=== PATIENT | female | born 2000 | race Caucasian/White ===

== ENCOUNTER 2020-04-30 15:08 | Emergency (ER) | payer OTHER, SELFPAY ==
--- NOTE | ~2020-04-30 | XR_ITS ---
EXAMINATION: XR abdomen/kub 1V DATE: 04/30/2020 15:38 INDICATION: 2 weeks of constipation TECHNIQUE: A supine view of the abdomen was obtained. COMPARISON: 08/01/2015 FINDINGS: Small amount of gas and stool at the ascending colon and rectum. The descending colon appears decompr essed. No dilated gas-filled loops of bowel to suggest obstruction. 8 degree lumbar levocurvature. IMPRESSION: 1. Normal bowel gas pattern. Reviewed, dictated and finalized at location A.
[2020-04-30 15:17] VITALS: BP 124/88; PULSE 72; RESP 16; TEMP 36.8; O2SAT 99
--- NOTE | 2020-04-30 15:18 | ED.GENADULT ---
HPI - General Adult General Chief complaint: Abdominal Pain Stated complaint: CONSTIPATION Time Seen by Provider: 04/30/20 15:20 Source: patient Mode of arrival: ambulatory Limitations: no limitations History of Present Illness HPI narrative: 19-year-old female patient presents to the [facility] with complaints of abdominal pain and constipation for the past 2 weeks. Patient states it is gotten increasingly worse over the past week with increasing abdominal pain. Patient states that she has had issues before with constipation back when she was in seventh grade. Patient states the last time she had any kind of bowel production was today but states it was very little and hard. Patient states she has been trying to take MiraLAX 1-2 times daily as well as some stool softeners which has not produced anything. Patient states she continues to get crampy feels like her belly is distended and bloated. Patient also come planing of feeling nauseated. Patient states that she did vomit one time on April 13 but has not had any vomiting since then. Denies any fevers or body aches. Denies . Related Data Home Medications Medication Instructions Recorded Confirmed sertraline 25 mg PO DAILY 04/30/20 04/30/20 Allergies Allergy/AdvReac Type Severity Reaction Status Date / Time Sulfa (Sulfonamide Allergy Mild HIVES Verified 09/09/19 15:54 Antibiotics) clindamycin Allergy Unknown HIVES Verified 09/09/19 15:54 Review of Systems Review of Systems: Narrative: CONSTITUTIONAL: Denies fever, chills, or sweats. EYES: Denies visual changes, redness, or discharge. ENT: Denies rhinorrhea, congestion, sore throat, or otalgia. CARDIOVASCULAR: Denies chest pain, palpitations, or edema. RESPIRATORY: Denies cough or dyspnea. GASTROINTESTINAL: Positive abdominal pain, nausea, denies vomiting, or diarrhea. Positive constipation GENITOURINARY: Denies dysuria or hematuria. SKIN: Denies rash or itching. MUSCULOSKELETAL: Denies back pain, joint pain, or myalgia. NEUROLOGIC: Denies headache, numbness, or weakness. PSYCHIATRIC: Denies anxiety or depression. PMFSH Comments At the time of my signature I agree with nursing past medical history, surgical, social, and family history. There is no relevant family history pertinent to the presenting complaint. Exam Narrative: Exam Narrative: GENERAL: Well-appearing, well-nourished, and in no acute distress. HEAD: Normocephalic, atraumatic. EYES: PERRLA and EOMI. ENT: Nares clear, no rhinorrhea or epistaxis. Mucous membranes moist. NECK: Supple. No lymphadenopathy CHEST: Clear to auscultation. No respiratory distress. HEART: Regular rate and rhythm. No murmur heard. Normal peripheral pulses. ABDOMEN: Soft, slightly distended. No guarding, rebound tenderness, or rigid. Patient does have tenderness noted to the left upper quadrant on palpation. No pulsatilla masses. Bowel sounds slightly decreased in left upper quadrant. No organomegaly. Negative Reveles?s sign. No periumbicial tenderness. No Supra public tenderness or distension. Good femoral pulses bilaterally. No hernia noted. No scars or surface trauma. EXTREMITIES: Normal range of motion. No edema. SKIN: Warm, dry, no rash. NEURO: No focal deficits. Alert and oriented x3. Course INSTRUCTIONAL SUPERVISOR/PA Physician Supervision Reevaluated patient after her x-ray had resulted. Discussed with patient that the KUB still shows a small amount of stool but nothing to suggest that she is constipated. Discussed with her the since this does not necessarily coincide with her abdominal pain and her symptoms, I am going to suggest that that we send her to the ER for further evaluation and treatment since there is not a clear indication of what could be causing her pain and she may need to have blood work and possibly a CT done. Patient is aware the plan of care and is agreement this time. Patient requesting an answer for further evaluation. Reevaluation(s) Date: 04/30/20 Time: 16:17
== END 2020-04-30 16:20 | disposition short-term general hospital (02) ==
PROVIDERS: Emergency Provider Nurse Practitioner Family; PCP Nurse Practitioner Adult Health
DX: R10.12 Left upper quadrant pain (principal); F84.5 Asperger's syndrome; F41.9 Anxiety disorder, unspecified; F32.9 Major depressive disorder, single episode, unspecified; R03.0 Elevated blood-pressure reading, without diagnosis of hypertension
CPT/HCPCS: 74018; 99213; G0463

== ENCOUNTER 2020-04-30 16:46 | Emergency (ER) | payer OTHER, SELFPAY ==
--- NOTE | ~2020-04-30 | CT_ITS ---
EXAMINATION: CT abdomen pelvis w con DATE: 04/30/2020 18:09 INDICATION: Generalized abdominal pain. TECHNIQUE: Computed tomography (CT) of the abdomen and pelvis was performed with 100 mL Omnipaque-350 intravenous contrast. Automated exposure control and iterative reconstruction technique were employe d. The dose-length product was 507.60 mGy-cm. COMPARISON: CT abdomen dated 07/04/2010 FINDINGS: Lung bases are clear. Heart size is normal. No pericardial or pleural effusion. Focal hepatic steatos is at the ligamentum teres. Gallbladder, spleen, pancreas, bilateral adrenal glands and kidneys are n ormal. Bowels including the appendix are normal. There is a small amount of gas within a small uracha l remnant which superiorly tethers the anterior dome of the partially decompressed bladder. Retrovert ed uterus and bilateral adnexa are unremarkable. Trace amount of likely physiologic free fluid in the cul-de-sac. No abscess or free intraperitoneal gas. No pathologically enlarged tiny fat-containing u mbilical hernia. lymphadenopathy. Mild lumbar levocurvature. IMPRESSION: 1. Small amount of gas within a urachal remnant at the anterior bladder. Correlate for recent instrum entation or Rhodes catheterization and with urinalysis. Reviewed, dictated and finalized at location A. IMPRESSION: 1. Small amount of gas within a urachal remnant at the anterior bladder. Correl ate for recent instrumentation or Rhodes catheterization and with urinalysis.
[2020-04-30 16:51] VITALS: BP 138/76; PULSE 72; RESP 18; TEMP 36.2; O2SAT 100
[2020-04-30 17:34] LABS: Basophils Percent Auto 0.5 % (0.2-1.2); Eosinophils Percent Auto 0.4 % (0-4.4); Hematocrit 43.3 % (37.0-47.0); Immature Granulocyte Absolute 0.02 K/mm3 (0.00-0.031); Immature Granulocyte Percent A 0.3 % (0-0.5); Immature Platelet Fraction Pct 11.2 % (0.9-11.2); Lymphocytes Percent Auto 23.9 % (18.3-44.2); Mean Corpuscular HGB Conc 32.3 g/dl (32-36); Mean Corpuscular Hemoglobin 27.9 pg (26-34); Mean Corpuscular Volume 86.3 fl (80-100); Mean Platelet Volume 13.3 fl (7.4-10.4); Monocytes Absolute Auto 0.5 K/mm3 (0.1-0.6); Monocytes Percent Auto 6.4 % (2.6-8.5); Neutrophils Absolute Auto 5.5 K/mm3 (1.3-6.7); Neutrophils Percent Auto 68.5 % (45.5-73.1); Platelet Count Result 187 k/mm3 (150-375); Red Blood Count 5.02 M/mm3 (4.2-5.4); Red Cell Distribution Width 13.1 % (11.5-14.5)
[2020-04-30 17:37] LABS: Add Urine Microscopic? YES; Appearance Urine Clear (Clear); Bilirubin Urine Negative (Negative); Blood Urine Negative (Negative); Color Urine Yellow (Yellow); Glucose Urine UA Negative (Negative); Ketones Urine 2+ mg/dL (Negative); Leukocyte Esterase Ur Negative LEU/UL (Negative); Mucus Urine Rare /lpf; Nitrate Urine Negative (Negative); Protein Urine Negative (Negative); Specific Grav Ur 1.024 (1.001-1.035); Squamous Epithelial Cell Urine Many /hpf (Few); Urobilinogen Urine Negative mg/dL (<2.0)
[2020-04-30 17:39] LABS: Alanine Aminotransferase 25 U/L (4-35); Albumin Level 4.8 g/dL (3.7-5.6); Alkaline Phosphatase 86 U/L (45-116); Aspartate Amino Transferase 22 U/L (14-36); Bilirubin,Total 0.4 mg/dL (0.2-1.3); Blood Urea Nitrogen 16 mg/dL (8-21); Calcium 9.7 mg/dL (8.9-10.7); Carbon Dioxide 25 mmol/L (22-30); Chloride 102 mmol/L (98-107); Estimated CRCL calculation 111 ml/min; Estimated Glomerular Filt Rate > 60; Glucose 92 mg/dL (65-105); Lipase 817 U/L (23-300); Potassium 3.6 mmol/L (3.4-5.0); Sodium 138 mmol/L (134-143)
--- NOTE | 2020-04-30 17:54 | ED.ABDPAIN ---
HPI - Abdominal Pain General Chief Complaint: Abdominal Pain Stated Complaint: Constipation Time Seen by Provider: 04/30/20 17:38 Source: patient Mode of arrival: ambulatory History of Present Illness HPI narrative: 19 years old white female, obese, insignificant past medical history presents with possible constipation. Also some anal discomfort. Patient does not remember when the last time she had a bowel movement before this morning. Patient complaining of generalized abdominal pain associated with frequent vomiting started earlier today. Also some in discomfort when she tried to strain and to have a bowel movement. No fever, no chills no diarrhea, no urinary symptoms no vaginal bleeding or discharge. Patient was seen at urgent care today and KUB showed no constipation, referred to the emergency room for further evaluation Related Data Home Medications Medication Instructions Recorded Confirmed buspirone 5 mg PO TID 04/30/20 levonorgestrel-ethinyl estrad tablet 04/30/20 [Vienva] sertraline 25 mg PO DAILY 04/30/20 04/30/20 Allergies Allergy/AdvReac Type Severity Reaction Status Date / Time Sulfa (Sulfonamide Allergy Mild HIVES Verified 04/30/20 16:53 Antibiotics) clindamycin Allergy Unknown HIVES Verified 04/30/20 16:53 Review of Systems Review of Systems: Narrative: CONSTITUTIONAL: Denies fever, chills, or sweats. EYES: Denies visual changes, redness, or discharge. ENT: Denies rhinorrhea, congestion, sore throat, or otalgia. CARDIOVASCULAR: Denies chest pain, palpitations, or edema. RESPIRATORY: Denies cough or dyspnea. GASTROINTESTINAL: Denies abdominal pain, nausea, vomiting, or diarrhea. GENITOURINARY: Denies dysuria or hematuria. SKIN: Denies rash or itching. MUSCULOSKELETAL: Denies back pain, joint pain, or myalgia. NEUROLOGIC: Denies headache, numbness, or weakness. PSYCHIATRIC: Denies anxiety or depression. PMFSH Social History Social History Gender identity (if verbalized by the patient): Female Exam Narrative: Exam Narrative: General appearance: Well-developed, well-nourished Skin: Normal color Head: Normocephalic, nontraumatic Eyes: Clear conjunctiva ENT: Oropharynx normal, ears normal, nose normal Neck: Supple, nontender Chest and respiratory: Airway patent, no respiratory distress, no accessory muscle use Heart: Regular rate/rhythm Abdomen: Soft, diffuse abdominal tenderness mainly epigastric and right lower quadrant. No guarding or rebound, no organomegaly, quiet bowel sounds, rectal exam showed diffuse tenderness, possible anal fissure. Vascular: Normal peripheral pulses, normal capillary refill. Musculoskeletal: Normal range of motion, nontender back Neurologic: Alert and oriented ?3, FAN ENGINE ENGINEER is normal as tested, no gross motor deficit Course Course Emergency Course: Improving Vital Signs Vital signs: Vital Signs Temperature 36.2 C L 04/30/20 16:51 Pulse Rate 72 04/30/20 16:51 Respiratory Rate 18 04/30/20 16:51 Blood Pressure 138/76 04/30/20 16:51 Pulse Oximetry 100 04/30/20 16:51 Temperature 36.2 C L 04/30/20 16:51 Pulse Rate 72 04/30/20 16:51 Respiratory Rate 18 04/30/20 16:51 Blood Pressure 138/76 04/30/20 16:51 Pulse Oximetry 100 04/30/20 16:51 MDM - Abdominal Pain MDM Narrative Medical decision making narrative: Abdominal pain. My plan to get labs, CT abdomen and pelvis with IV contrast, start IV fluids. My differential diagnosis as below Differential Diagnosis Differential diagnosis: Likely abdominal pain, acute appendicitis, constipation and pancreatitis Lab Data Result diagrams: 04/30/20 17:20
[2020-04-30] MEDS: SODIUM CHLORIDE 0.9% IV 1,000 ML 999 ML IV CONT (18:42)
[2020-04-30 20:12] VITALS: BP 130/80; PULSE 80; RESP 20; TEMP 36.7; O2SAT 98
== END 2020-04-30 20:14 | disposition home or self-care (01) ==
PROVIDERS: Physician Assistant; Emergency Provider Emergency Medicine; PCP Nurse Practitioner Adult Health
DX: R10.84 Generalized abdominal pain (principal); K62.89 Other specified diseases of anus and rectum
CPT/HCPCS: 36415; 74018; 74177; 80053; 81001; 81025; 83690; 85025; 85055; 96360; 99284; J7030; Q9967

== ENCOUNTER 2020-10-13 07:05 | Outpatient (NON) | payer OTHER, SELFPAY ==
[2020-10-13 18:30] LABS: SARS-CoV-2 RNA PCR Negative
== END 2020-10-13 07:06 ==
PROVIDERS: PCP Nurse Practitioner Adult Health; Visit Provider Nurse Practitioner Adult Health
DX: R05 Cough (principal); Z20.828 Contact with and (suspected) exposure to other viral communicable diseases
CPT/HCPCS: 87635; C9803; U0003

== ENCOUNTER 2021-04-12 13:33 | Emergency (ER) | payer OTHER, SELFPAY ==
[2021-04-12 13:45] VITALS: BP 115/68; PULSE 77; RESP 16; TEMP 36.3; O2SAT 99
--- NOTE | 2021-04-12 14:07 | ED.PEDHENT ---
HPI - Pediatric HENT General Chief complaint: Upper Respiratory Infection Stated complaint: sore throat Source: patient and RN notes reviewed Limitations: no limitations History of Present Illness HPI Narrative: The patient, previously mostly healthy non-smoker/nondrinker, presents with sore throat. Patient is partially Covid vaccinated and has a shorter couple day history of sore throat. She reports other coworkers have been strep positive. No fever, loss of taste/smell, vomiting/diarrhea, S OB, cough, CP, earache, rash, myalgias/headaches. Related Data Home Medications Medication Instructions Recorded Confirmed levonorgestrel-ethinyl estrad 0.1 tablet PO DAILY 04/30/20 04/12/21 [Vienva] Allergies Allergy/AdvReac Type Severity Reaction Status Date / Time clindamycin Allergy Mild HIVES Verified 04/12/21 13:39 Sulfa (Sulfonamide Allergy Mild HIVES Verified 04/12/21 13:39 Antibiotics) Pediatric Review of Systems Review of Systems: General/Constitutional: No weight loss,fever Eyes: N0: Redness,discharge Ears/Nose/Throat: No: Epistaxis,ear discharge Respiratory: Denies: Hemoptysis Gastrointestinal: No Vomiting, Bleeding-rectal Skin: No Lumps, eruption Neurologic: No Focal Weakness,Sz Hematologic: Denies: Petechiae/Purpura Psychiatric: No: Suicida ideationl All Other Systems: Reviewed and Negative PMFSH Social History Social History Gender identity (if verbalized by the patient): Female Comments At time of signature, agree with nursing past medical, surgical, social and family history. There is no relevant family history pertinent to the presenting complaint Pediatric Exam Narrative: Physical exam: General Appearance: Well appearing, Well nourished EYE: PERRLA, Conjunctiva clear Ears: Auditory canal normal, TM normal Nose: Rhinorrhea, Mucousal erythema Mouth/Throat: MM moist, Uvula midline, Pharyngeal erythema without exudate Neck: Supple, No adenopathy Respiratory: No respiratory distress, Breath sounds equal, Clear to auscultation Cardiovascular: RRR, No JVD Musculoskeletal: Non tender, Normal strength Skin: Warm, Dry Neurological: A&O x3, CN II-XII intact Psychiatric: Normal mood, Normal affect Course Vital Signs Vital signs: Vital Signs Temperature 97.4 F L 04/12/21 13:45 Pulse Rate 77 04/12/21 13:45 Respiratory Rate 16 04/12/21 13:45 Blood Pressure 115/68 04/12/21 13:45 Pulse Oximetry 99 04/12/21 13:45 Temperature 97.4 F L 04/12/21 13:45 Pulse Rate 77 04/12/21 13:45 Respiratory Rate 16 04/12/21 13:45 Blood Pressure 115/68 04/12/21 13:45 Pulse Oximetry 99 04/12/21 13:45 Medical Decision Making Vital Signs Vital Signs: Vital Signs Temperature 97.4 F L 04/12/21 13:45 Pulse Rate 77 04/12/21 13:45 Respiratory Rate 16 04/12/21 13:45 Blood Pressure 115/68 04/12/21 13:45 Pulse Oximetry 99 04/12/21 13:45 Temperature 97.4 F L 04/12/21 13:45 Pulse Rate 77 04/12/21 13:45 Respiratory Rate 16 04/12/21 13:45 Blood Pressure 115/68 04/12/21 13:45 Pulse Oximetry 99 04/12/21 13:45 Lab Data Labs: Lab Results 04/12/21 Range/Units 13:48 SARS-CoV-2 RNA (RT-PCR) Pending Strep Screen Presumptive Negative *(Reference Range: Negative)* Discharge Plan Discharge Clinical Impression: Odynophagia Pharyngitis Qualifiers: Pharyngitis/tonsillitis etiology: unspecified etiology Qualified Code(s): J02.9 - Acute pharyngitis, unspecified Patient Disposition: Home, Self-Care Condition: Stable Instructions: Antibiotic Form, Pharyngitis (ED) Prescriptions: New azithromycin 250 mg tablet See Rx Instructions .ROUTE .COMPLEX Qty: 6 RF: 0 lidocaine HCl [Lidocaine Viscous] 2 % solution 5 ml MUCOUS MEM QID PRN (Reason: pain) Qty: 100 RF: 0 No Action levonorgestrel-ethin
[2021-04-13 18:42] LABS: SARS-CoV-2 RNA PCR Negative
== END 2021-04-12 14:23 | disposition home or self-care (01) ==
PROVIDERS: Emergency Provider Emergency Medicine; PCP Nurse Practitioner Adult Health
DX: J02.9 Acute pharyngitis, unspecified (principal); Z20.822 Contact with and (suspected) exposure to COVID-19
CPT/HCPCS: 87081; 87880; 99213; C9803; G0463; U0003; U0005

== ENCOUNTER 2021-08-02 12:43 | Outpatient (CLI) | payer OTHER, SELFPAY ==
--- NOTE | ~2021-08-02 | XR_ITS ---
EXAMINATION: NASAL BONES-3+VIEWS DATE: 08/02/2021 13:07 INDICATION: Injury to the nose with swelling and bruising. TECHNIQUE: Obrja and left and right lateral views of the nasal bones were obtained. COMPARISON: None. FINDINGS: Mild inferior angulation of a small nondisplaced fracture across the anterior tip of the nasal bone. No other fractures identified. Nasal septum remains midline. No mucosal air-fluid levels appreciated within the paranasal sinuses. IMPRESSION: 1. Mild angulation of a nondisplaced fracture at the tip of the nasal bones. Reviewed, dictated and finalized at location A.
== END 2021-08-02 12:44 | disposition home or self-care (01) ==
LOC: ANHIMG 12:49
PROVIDERS: PCP Nurse Practitioner Adult Health; Visit Provider Nurse Practitioner Adult Health
DX: S09.92XA Unspecified injury of nose, initial encounter (principal); X58.XXXA Exposure to other specified factors, initial encounter
CPT/HCPCS: 70160

== ENCOUNTER 2021-08-07 17:21 | Emergency (ER) | payer OTHER, SELFPAY ==
--- NOTE | ~2021-08-07 | XR_ITS ---
EXAMINATION: XR foot RT min 3V DATE: 08/07/2021 17:47 INDICATION: Sudden onset right foot pain TECHNIQUE: Dorsoplantar, lateral, and 2 oblique views of the right foot were obtained. COMPARISON: 03/15/2015 FINDINGS: There is no fracture, dislocation, or subluxation. The bones, soft tissues, and joint space s are normal. IMPRESSION: 1. No acute osseous abnormality. Reviewed, dictated and finalized at location A.
--- NOTE | 2021-08-07 17:31 | ED.LOWEXIN ---
HPI - Extremity Injury (Lower) General Chief Complaint: Extremity Problem,Nontraumatic Stated Complaint: Rt Foot Pain Time Seen by Provider: 08/07/21 17:33 Source: patient and RN notes reviewed Mode of arrival: ambulatory Limitations: no limitations History of Present Illness HPI Narrative: 20-year-old female presents to the [facility] with complaints of dorsal right foot pain. Denies trauma. No redness, swelling. Patient very tender to the dorsal aspects on top of the talus. Related Data Home Medications Medication Instructions Recorded Confirmed drospirenone (contraceptive) 1 tablet PO DAILY 08/07/21 08/07/21 [Slynd] Allergies Allergy/AdvReac Type Severity Reaction Status Date / Time clindamycin Allergy Mild HIVES Verified 08/07/21 17:40 Sulfa (Sulfonamide Allergy Mild HIVES Verified 08/07/21 17:40 Antibiotics) Review of Systems Review of Systems: All systems reviewed & are unremarkable except as noted in HPI and below Constitutional: Constitutional: Reports no additional constitutional complaints, Denies chills and Denies fever(s) Eyes: Eyes: Reports no additional eye complaints ENT: Reports system reviewed and no additional complaints, except as documented Cardiovascular: Cardiovascular: Reports no additional cardiovascular complaints Respiratory: Respiratory: Reports no additional respiratory complaints Musculoskeletal: Musculoskeletal: Reports as per HPI Comments: Right dorsal aspect foot Integumentary/Breasts: Skin/Breast: Reports system reviewed and no additional complaints, except as docu, Denies breast mass, Denies pruritus, Denies rash and Denies skin ulcer Neurologic: Reports system reviewed and no additional complaints, except as documented Psychiatric: Psychiatric: Reports no additional psychiatric complaints Allergic/Immunologic: Allergic/Immunologic: Reports no additional allergic/immunologic complaints [facility] Past Medical History Medical History (Updated 08/07/21 @ 19:55 by Charlene Allred) No significant family history Surgical History Surgical History (Updated 08/07/21 @ 19:55 by Charlene Allred) No pertinent past surgical history Social History Social History (Updated 08/07/21 @ 19:55 by Charlene Allred) Occupation/Education: student Gender identity (if verbalized by the patient): Female Comments At the time of my signature, I reviewed and agree with the nursing past medical, surgical, social, and family history. There is no relevant family history pertinent to the patient complaint. Exam Const: General: healthy appearing, no acute distress and alert Nutritional Appearance: well nourished Orientation/consciousness: patient oriented x3 Limitations: no limitations HENMT: Head: normal to inspection Eyes: Conjunctivae: conjunctivae normal Pupils: Equal, round and reactive pupils present Neck: Neck: normal visual inspection, no lymphadenopathy and no meningeal signs Chest: Chest palpation & inspection: normal inspection of the chest Resp: Effort & Inspection: normal respiratory effort Auscultation: clear to auscultation bilaterally Cardio: Rate: regular rate Rhythm: regular rhythm Back/Spine/Pelvis: Back: no CVA tenderness Skin: General skin exam: normal color Rashes: no rashes Wounds: no wounds Neuro: General: patient oriented x3, moves all extremities, no meningeal signs and no focal motor deficits Speech: normal speech Gait exam (Neuro): Normal gait present Extrem: General: normal to inspection, full ROM, capillary refill normal and normal exam except as noted Ankle/foot/toe images: 1. Tenderness without redness, bruising, swelling. Full range of motion. Sensation intact lateral and dorsal aspects, all 5 toes. Capillary refill under 2 seconds Psych: Appearance: grossly normal and well kempt Mental Status: mental status grossly normal Affect: normal affect Attitude: cooperative Thought content: Yes Normal thought content present
[2021-08-07 17:35] VITALS: BP 110/77; PULSE 72; RESP 16; TEMP 36.6; O2SAT 100
== END 2021-08-07 18:00 | disposition home or self-care (01) ==
PROVIDERS: Emergency Provider Nurse Practitioner; PCP Nurse Practitioner Adult Health
DX: M79.671 Pain in right foot (principal)
CPT/HCPCS: 73630; 99213; G0463

== ENCOUNTER 2021-08-30 16:17 | Emergency (ER) | payer OTHER, SELFPAY ==
--- NOTE | 2021-08-30 16:21 | ED.URI ---
HPI - URI/Sore Throat General Chief Complaint: Upper Respiratory Infection Stated Complaint: SORE THROAT/EARACHE Time Seen by Provider: 08/30/21 16:21 Source: patient and RN notes reviewed History of Present Illness HPI Narrative: Patient is a 20-year-old female who presents the urgent care with complaints of nasal congestion, rhinorrhea, bilateral ear pain, sore throat and mild abdominal discomfort. Patient denies of any fever, chills, nausea, vomiting. Patient states she has not taken anything [id number] for her symptoms. Denies of any known exposure to strep or Covid. Patient has had the Covid vaccine. No other acute complaints. No acute distress noted. Patient aware of the plan of care. Some parts of this dictation were generated by voice recognition software and may contain typographical and/or grammatical inaccuracies. Related Data Home Medications Medication Instructions Recorded Confirmed drospirenone (contraceptive) 1 tablet PO DAILY 08/07/21 08/07/21 [Slynd] Allergies Allergy/AdvReac Type Severity Reaction Status Date / Time clindamycin Allergy Mild HIVES Verified 08/07/21 17:40 Sulfa (Sulfonamide Allergy Mild HIVES Verified 08/07/21 17:40 Antibiotics) Review of Systems Review of Systems: CONSTITUTIONAL: Denies fever, chills, or sweats. EYES: Denies visual changes, redness, or discharge. ENT: Reports of nasal congestion, rhinorrhea, bilateral otalgia and sore throat CARDIOVASCULAR: Denies chest pain, palpitations, or edema. RESPIRATORY: Denies cough or dyspnea. GASTROINTESTINAL: Reports of diffuse abdominal discomfort without nausea, vomiting or diarrhea GENITOURINARY: Denies dysuria or hematuria. SKIN: Denies rash or itching. MUSCULOSKELETAL: Denies back pain, joint pain, or myalgia. NEUROLOGIC: Denies headache, numbness, or weakness. All other systems reviewed are negative, except as documented in HPI. [facility] Past Medical History Medical History (Updated 08/30/21 @ 16:44 by MIKE Dior) No significant family history Surgical History Surgical History (Updated 08/07/21 @ 19:55 by Charlene Allred) No pertinent past surgical history Social History Social History (Updated 08/07/21 @ 19:55 by Charlene Allred) Gender identity (if verbalized by the patient): Female Comments At the time of my signature, I reviewed and agree with the nursing past medical, surgical, social, and family history. There is no relevant family history pertinent to the patient complaint. Exam Narrative: GENERAL: This is a well-nourished, well-developed patient, in no apparent distress. HEAD: normocephalic, atraumatic. EYES: PERRL. Sclera clear/white. Vision is grossly intact. EARS: External ears normal, auditory canals clear and without drainage, TMs normal without perforation. Hearing grossly intact. NOSE: External nose normal with no obvious nasal discharge, nares without redness, clear rhinorrhea. THROAT: Mucous membranes moist, mild to moderate erythema noted posterior oropharynx without exudate or ulceration. Mild postnasal drainage. NECK: Neck supple CARDIOVASCULAR: Regular rate and rhythm without murmurs, gallops, or rubs. RESPIRATORY: Clear to auscultation. Breath sounds equal bilaterally. No wheezes, rales, or rhonchi. GASTROINTESTINAL: Abdomen soft, non-tender, nondistended. Bowel sounds are active. No guarding. SKIN: warm, intact with no suspicious lesions or rash, good texture and turgor. NEURO: awake, alert, and oriented to person, place and time. There were no obvious focal neurologic abnormalities. EXTREMITIES: No clubbing, cyanosis, or edema. Course Vital Signs Vital signs: Vital Signs Temperature 98.1 F 08/30/21 16:25 Pulse Rate 79 08/30/21 16:25 Respiratory Rate 16 08/30/21 16:25 Blood Pressure 106/58 L 08/30/21 16:25 Pulse Oximetry 100 08/30/21 16:25 Temperature 98.1 F 08/30/21 16:25 Pulse Rate 79 08/30/21 16:25 Respiratory Rate 16 08/30/21
[2021-08-30 16:25] VITALS: BP 106/58; PULSE 79; RESP 16; TEMP 36.7; O2SAT 100
== END 2021-08-30 16:49 | disposition home or self-care (01) ==
PROVIDERS: Emergency Provider Nurse Practitioner Family; PCP Nurse Practitioner Adult Health
DX: J02.9 Acute pharyngitis, unspecified (principal)
CPT/HCPCS: 87081; 87880; 99213; G0463

== ENCOUNTER 2021-11-07 11:39 | Emergency (ER) | payer OTHER, SELFPAY ==
[2021-11-07 11:43] VITALS: BP 108/68; PULSE 70; RESP 16; TEMP 36.9; O2SAT 100
--- NOTE | 2021-11-07 12:04 | ED.GENADULT ---
HPI - General Adult General Chief complaint: Unspecified Stated complaint: HEADACHE/FOOD TASTES OFF /STOMACH PAIN Time Seen by Provider: 11/07/21 12:01 Source: patient and RN notes reviewed Mode of arrival: ambulatory Limitations: no limitations History of Present Illness HPI narrative: 20-year-old female presents with concern for Covid exposure, fatigue, change in sense of taste, upset stomach, ear pain. Reports symptoms started approximately 4 days ago. She denies cough, shortness of breath, fever, chills, sweats, nasal congestion, sore throat, diarrhea. Denies intervention. Related Data Home Medications Medication Instructions Recorded Confirmed drospirenone (contraceptive) 1 tablet PO DAILY 08/07/21 08/07/21 [Slynd] Allergies Allergy/AdvReac Type Severity Reaction Status Date / Time clindamycin Allergy Mild HIVES Verified 08/07/21 17:40 Sulfa (Sulfonamide Allergy Mild HIVES Verified 08/07/21 17:40 Antibiotics) Review of Systems Review of Systems: CONSTITUTIONAL: Reports malaise, fatigue. Denies chills, sweats, or fever. EYES: Denies visual changes, redness, or discharge. ENT: Denies rhinorrhea, congestion, sinus pain, or sore throat. Reports bilateral ear pain and change in sense of taste CARDIOVASCULAR: Denies chest pain, palpitations, or edema. RESPIRATORY: Denies cough or dyspnea. GASTROINTESTINAL: Denies abdominal pain, vomiting, diarrhea. Reports nausea SKIN: Denies rash or itching. MUSCULOSKELETAL: Denies myalgia. NEUROLOGIC: Denies headache. All systems reviewed & are unremarkable except as noted in HPI and below PMFSH Past Medical History Medical History (Updated 11/07/21 @ 12:28 by Charlene Duarte NP) No significant family history Surgical History Surgical History (Updated 08/07/21 @ 19:55 by Charlene Allred) No pertinent past surgical history Social History Social History (Updated 08/07/21 @ 19:55 by Charlene Allred) Gender identity (if verbalized by the patient): Female Comments At time of signature, agree with nursing past medical, surgical, social and family history. There is no relevant family history pertinent to the presenting complaint Exam Narrative: GENERAL: Well-appearing, well-nourished, and in no acute distress. HEAD: Normocephalic EYES: PERRLA, conjunctivae clear ENT: Nares clear, clear discharge. Mucous membranes moist. TM pearly hernández with dull light reflex bilaterally; no tragal tenderness. Oropharynx not erythematous without lesions. Tonsils not enlarged and without exudate, no drooling, no hoarseness, no trismus, uvula midline. NECK: Supple. No lymphadenopathy CHEST: Clear to auscultation, breath sounds equal. No wheezing, rhonchi, rales, or stridor. No respiratory distress, speaks in full sentences. HEART: Regular rate and rhythm. No murmur heard. SKIN: Warm, dry, no rash. NEURO: Alert and oriented x3. PSYCH: Normal mood and affect Course Course Emergency Course: Patient is aware of diagnosis, understands and agrees to treatment plan. Anticipatory guidance given. Patient agrees to follow-up as directed and is aware of reasons to seek care at the emergency department. Portions of this record may have been created with voice recognition software Vital Signs Vital signs: Vital Signs Temperature 98.4 F 11/07/21 11:43 Pulse Rate 70 11/07/21 11:43 Respiratory Rate 16 11/07/21 11:43 Blood Pressure 108/68 11/07/21 11:43 Pulse Oximetry 100 11/07/21 11:43 Temperature 98.4 F 11/07/21 11:43 Pulse Rate 70 11/07/21 11:43 Respiratory Rate 16 11/07/21 11:43 Blood Pressure 108/68 11/07/21 11:43 Pulse Oximetry 100 11/07/21 11:43 Reviewed. Medical Decision Making MDM Narrative Medical decision making narrative: Differential diagnosis considered: [place] virus, strep pharyngitis, allergic rhinitis, upper respiratory tract infection, sinusitis, rhinosinusitis, nasopharyngitis. viral pharyngitis, otitis media, otitis externa, pneu
[2021-11-08 13:33] LABS: SARS-CoV-2 RNA PCR Negative
== END 2021-11-07 12:38 | disposition home or self-care (01) ==
PROVIDERS: Emergency Provider Nurse Practitioner; PCP Nurse Practitioner Adult Health
DX: B34.9 Viral infection, unspecified (principal); Z20.822 Contact with and (suspected) exposure to COVID-19
CPT/HCPCS: 87426; 99213; C9803; G0463; U0003; U0005

== ENCOUNTER 2021-12-06 16:43 | Emergency (ER) | payer OTHER, SELFPAY ==
[2021-12-06 16:52] VITALS: BP 116/81; PULSE 70; RESP 16; TEMP 36.6; O2SAT 100
--- NOTE | 2021-12-06 16:56 | ED.SKABFB ---
HPI - Skin/Abscess/Foreign Bdy General Chief complaint: Skin/Abscess/Foreign Body Stated complaint: Bite on shoulder Time Seen by Provider: 12/06/21 16:56 Source: patient Mode of arrival: ambulatory Limitations: no limitations History of Present Illness HPI narrative: 20-year-old presented complaint of wound to the right upper shoulder, onset yesterday. Lesion started as small round agdaagux. States at 1100 today she did not have a blister, which appeared about 2 hours later. She endorses itching and mild drainage to the site; denies pain. She denies any other skin lesions. She denies changes in soap, lotion, detergent or medications. Endorses history of similar lesion to leg in the summer. Allergies to clindamycin and sulfa. MD complaint: rash Related Data Allergies Allergy/AdvReac Type Severity Reaction Status Date / Time clindamycin Allergy Mild HIVES Verified 08/07/21 17:40 Sulfa (Sulfonamide Allergy Mild HIVES Verified 08/07/21 17:40 Antibiotics) Review of Systems Review of Systems: CONSTITUTIONAL: Denies body aches, fever, chills, or sweats. EYES: Denies visual changes, redness, or discharge. ENT: Denies rhinorrhea, congestion, sore throat, or otalgia. CARDIOVASCULAR: Denies chest pain, palpitations, or edema. RESPIRATORY: Denies cough or dyspnea. GASTROINTESTINAL: Denies abdominal pain, nausea, vomiting, or diarrhea. GENITOURINARY: Denies dysuria or hematuria. SKIN: rash, itching, wounds. MUSCULOSKELETAL: Denies back pain, joint pain, or myalgia. NEUROLOGIC: Denies headache, numbness, tingling, or weakness. PSYCH: Denies depression or anxiety. [facility] Past Medical History Medical History (Updated 12/06/21 @ 17:15 by Jennifer Stephens APRN) No significant family history Surgical History Surgical History No pertinent past surgical history Social History Social History Gender identity (if verbalized by the patient): Female Comments At time of signature, I have reviewed and agree with nursing past medical, surgical, social and family history unless otherwise noted. Please see nursing chart for further information. There is no relevant family history pertinent to the presenting complaint Exam Narrative: GENERAL: Well-appearing, well-nourished, and in no acute distress. HEAD: Normocephalic, atraumatic. EYES: PERRLA, conjunctivae clear, and EOMI. ENT: Mucous membranes moist. Oropharynx without edema, erythema or lesions. NECK: Supple. No lymphadenopathy CHEST: Clear to auscultation. No respiratory distress. HEART: Regular rate and rhythm. SKIN: Warm, dry. Right upper posterior shoulder with pruritic erythematous vesicle with surrounding induration approx 3cm x2cm, scant clear drainage, mild tenderness with palpation NEURO: Alert and oriented x3. PSYCH: Normal mood and affect Course Course Emergency Course: Patient is aware of diagnosis, understands and agrees to treatment plan. Anticipatory guidance given. Patient agrees to follow-up as directed and is aware of reasons to seek care at the emergency department. Portions of this record may have been created with voice recognition software Level of Care: Express Care Visit Vital Signs Vital signs: Vital Signs Temperature 97.9 F 12/06/21 16:52 Pulse Rate 70 12/06/21 16:52 Respiratory Rate 16 12/06/21 16:52 Blood Pressure 116/81 12/06/21 16:52 Pulse Oximetry 100 12/06/21 16:52 Temperature 97.9 F 12/06/21 16:52 Pulse Rate 70 12/06/21 16:52 Respiratory Rate 16 12/06/21 16:52 Blood Pressure 116/81 12/06/21 16:52 Pulse Oximetry 100 12/06/21 16:52 Reviewed MDM - Skin/Abscess/Foreign Bdy MDM Narrative Medical decision making narrative: Does not appear at this time to be erythema multiforme, bullous, SJS, TEN; no evidence at this time to suggest RMSF, endocarditis or Lyme disease; patient looks well, non
== END 2021-12-06 17:18 | disposition home or self-care (01) ==
PROVIDERS: Emergency Provider Nurse Practitioner Family; PCP Nurse Practitioner Adult Health
DX: L30.9 Dermatitis, unspecified (principal)
CPT/HCPCS: 99213; G0463

== ENCOUNTER 2021-12-18 10:43 | Emergency (ER) | payer OTHER, SELFPAY ==
--- NOTE | 2021-12-18 10:49 | ED.SKABFB ---
HPI - Skin/Abscess/Foreign Bdy General Chief complaint: Skin/Abscess/Foreign Body Stated complaint: Rash on hands Time Seen by Provider: 12/18/21 10:49 Source: patient and RN notes reviewed History of Present Illness HPI narrative: Patient is a 20-year-old female who presents the urgent care with complaints of a blister to the left shoulder/chest, right arm, and left index finger. Patient was seen here 1 week ago and given steroids and a steroid cream. Patient has also been using Benadryl for the itch. Patient states that it seemed to have helped for a brief period and was told to come back to our facility if it did not get better . Patient denies any history of staph. Denies of any fever, chills, nausea or vomiting. Denies anyone else in the home with the blistering. No other acute complaints. No acute distress noted. Patient read the plan of care. Some parts of this dictation were generated by voice recognition software and may contain typographical and/or grammatical inaccuracies. Related Data Allergies Allergy/AdvReac Type Severity Reaction Status Date / Time clindamycin Allergy Mild HIVES Verified 12/18/21 10:56 Sulfa (Sulfonamide Allergy Mild HIVES Verified 12/18/21 10:56 Antibiotics) Review of Systems Review of Systems: CONSTITUTIONAL: Denies fever, chills, or sweats. EYES: Denies visual changes, redness, or discharge. ENT: Denies rhinorrhea, congestion, sore throat, or otalgia. CARDIOVASCULAR: Denies chest pain, palpitations, or edema. RESPIRATORY: Denies cough or dyspnea. GASTROINTESTINAL: Denies abdominal pain, nausea, vomiting, or diarrhea. GENITOURINARY: Denies dysuria or hematuria. SKIN: Reports of itchy red blistering to the left chest/shoulder, left index finger, and right forearm MUSCULOSKELETAL: Denies back pain, joint pain, or myalgia. NEUROLOGIC: Denies headache, numbness, or weakness. All other systems reviewed are negative, except as documented in HPI. [facility] Past Medical History Medical History (Updated 12/18/21 @ 11:11 by MIKE Dior) No significant family history Surgical History Surgical History No pertinent past surgical history Social History Social History Gender identity (if verbalized by the patient): Female Comments At the time of my signature, I reviewed and agree with the nursing past medical, surgical, social, and family history. There is no relevant family history pertinent to the patient complaint. Exam Narrative: GENERAL: This is a well-nourished, well-developed patient, in no apparent distress. HEAD: normocephalic, atraumatic. EYES: PERRL. Sclera clear/white. Vision is grossly intact. EARS: External ears normal NOSE: External nose normal with no obvious nasal discharge, nares without redness, no rhinorrhea. THROAT: Mucous membranes moist NECK: Neck supple CARDIOVASCULAR: Regular rate and rhythm without murmurs, gallops, or rubs. RESPIRATORY: Clear to auscultation. Breath sounds equal bilaterally. No wheezes, rales, or rhonchi. SKIN: Vesicular lesion with mild surrounding erythema noted to the left chest/anterior shoulder, left index finger, and right forearm. Warm, intact with no suspicious lesions or rash, good texture and turgor. NEURO: awake, alert, and oriented to person, place and time. There were no obvious focal neurologic abnormalities. EXTREMITIES: No clubbing, cyanosis, or edema. Course Course Level of Care: Express Care Visit Vital Signs Vital signs: Vital Signs Temperature 98.2 F 12/18/21 10:50 Pulse Rate 82 12/18/21 10:50 Respiratory Rate 16 12/18/21 10:50 Blood Pressure 145/90 H 12/18/21 10:50 Pulse Oximetry 100 12/18/21 10:50 Temperature 98.2 F 12/18/21 10:50 Pulse Rate 82 12/18/21 10:50 Respiratory Rate 16 12/18/21 10:50 Blood Pressure 145/90 H 12/18/21 10:50 Pulse Oximetry 100 12/18/21
[2021-12-18 10:50] VITALS: BP 145/90; PULSE 82; RESP 16; TEMP 36.8; O2SAT 100
== END 2021-12-18 11:27 | disposition home or self-care (01) ==
PROVIDERS: Emergency Provider Nurse Practitioner Family; PCP Nurse Practitioner Adult Health
DX: L01.00 Impetigo, unspecified (principal)
CPT/HCPCS: 99213; G0463

== ENCOUNTER 2022-04-05 14:48 | Emergency (ER) | payer OTHER, SELFPAY ==
--- NOTE | 2022-04-05 14:50 | ED.URI ---
HPI - URI/Sore Throat General Chief Complaint: Upper Respiratory Infection Stated Complaint: COUGH/SORE THROAT/FEVER Time Seen by Provider: 04/05/22 14:50 Source: patient, family, RN notes reviewed and old records reviewed Mode of arrival: ambulatory Limitations: no limitations History of Present Illness HPI Narrative: 21-year-old female presents to the [facility] with cough, sore throat and subjective fevers for 2 days. States that she took an at home COVID test and it was positive, states that her work needs documentation from a medical facility. No treatment [employer] Related Data Home Medications Medication Instructions Recorded Confirmed No Home Medications 04/05/22 04/05/22 Allergies Allergy/AdvReac Type Severity Reaction Status Date / Time clindamycin Allergy Mild HIVES Verified 12/18/21 10:56 Sulfa (Sulfonamide Allergy Mild HIVES Verified 12/18/21 10:56 Antibiotics) vancomycin AdvReac Chills Verified 04/05/22 14:54 Review of Systems Review of Systems: All systems reviewed & are unremarkable except as noted in HPI and below Constitutional: Constitutional: Reports as per HPI, Reports chills, Reports fatigue, Reports fever(s) and Denies headache(s) Eyes: Eyes: Reports no additional eye complaints ENT: Reports as per HPI, Denies vertigo, Denies dizziness, Denies headache(s), Denies nasal congestion and Reports sore throat Cardiovascular: Cardiovascular: Reports no additional cardiovascular complaints, Denies chest pain, Denies syncope, Denies rapid heart rate and Denies dyspnea Respiratory: Respiratory: Reports as per HPI, Reports cough, Denies dyspnea and Denies wheezing Gastrointestinal: Gastrointestinal: Reports no additional gastrointestinal complaints, Denies abdominal pain, Denies diarrhea, Denies nausea and Denies vomiting Musculoskeletal: Musculoskeletal: Reports no additional musculoskeletal complaints and Denies numbness Integumentary/Breasts: Skin/Breast: Reports system reviewed and no additional complaints, except as docu Neurologic: Reports system reviewed and no additional complaints, except as documented, Denies vertigo, Denies dizziness, Denies syncope, Denies headache(s), Denies focal weakness and Denies numbness Psychiatric: Psychiatric: Reports no additional psychiatric complaints Allergic/Immunologic: Allergic/Immunologic: Reports no additional allergic/immunologic complaints and Denies wheezing PMFSH Past Medical History Medical History (Updated 04/05/22 @ 15:23 by Charlene Allred APRN) No significant family history Surgical History Surgical History No pertinent past surgical history Social History Social History Gender identity (if verbalized by the patient): Female Comments At the time of my signature, I reviewed and agree with the nursing past medical, surgical, social, and family history. There is no relevant family history pertinent to the patient complaint. Exam Const: General: cooperative, no acute distress, well developed, alert and ill appearing acutely (Mild) Nutritional Appearance: well nourished Orientation/consciousness: patient oriented x3 Limitations: no limitations HENMT: Head: normal to inspection Ears: external ears normal, TM's normal bilaterally and EAC's normal General nose exam: Normal external nose present Face and sinus: normal facial exam Mouth: Yes Normal oral and palatal mucosa present and Yes lip normal Throat: posterior oropharynx normal and uvula midline Eyes: Conjunctivae: conjunctivae normal Pupils: Equal, round and reactive pupils present Neck: Neck: normal visual inspection, no lymphadenopathy and no meningeal signs Chest: Chest palpation & inspection: normal inspection of the chest Resp: Effort & Inspection: normal respiratory effort and no use of accessory muscles Auscultation: clear to auscultation bilaterally, no 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
[2022-04-05 14:52] VITALS: BP 120/81; PULSE 82; RESP 16; TEMP 36.7; O2SAT 100
== END 2022-04-05 15:30 | disposition home or self-care (01) ==
PROVIDERS: Emergency Provider Nurse Practitioner; PCP Nurse Practitioner Adult Health
DX: U07.1 COVID-19 (principal)
CPT/HCPCS: 87081; 87426; 87804; 87880; 99213; C9803; G0463

== ENCOUNTER 2022-10-06 16:07 | Emergency (ER) | payer OTHER, SELFPAY ==
[2022-10-06 16:16] VITALS: BP 116/78; PULSE 86; RESP 20; TEMP 36.8; O2SAT 100
--- NOTE | 2022-10-06 16:42 | ED.URI ---
HPI - URI/Sore Throat General Chief Complaint: Upper Respiratory Infection Stated Complaint: chest/lower back pain, cough,congestion Time Seen by Provider: 10/06/22 16:20 Source: patient Mode of arrival: ambulatory Limitations: no limitations History of Present Illness HPI Narrative: Angela is a 21-year-old female patient presenting to clinic today with complaints of chest and lower back pain, sore throat, cough, congestion, losing her voice. She reports that this been ongoing for approximately 3-4 weeks. She denies any fevers recently. MD elicited complaint: sore throat and nasal congestion Related Data Allergies Allergy/AdvReac Type Severity Reaction Status Date / Time clindamycin Allergy Mild HIVES Verified 12/18/21 10:56 Sulfa (Sulfonamide Allergy Mild HIVES Verified 12/18/21 10:56 Antibiotics) vancomycin AdvReac Chills Verified 04/05/22 14:54 Review of Systems Review of Systems: Pertinent positives per HPI. Patient denies any fever, chills, rash, headache, visual changes, dizziness, shortness of breath, chest pain, palpitations, nausea, vomiting, diarrhea, constipation, abdominal pain, or any urinary issues. [facility] Past Medical History Medical History (Updated 10/06/22 @ 16:43 by Tiburcio Medina APRN) No significant family history Surgical History Surgical History No pertinent past surgical history Social History Social History Gender identity (if verbalized by the patient): Female Comments At the time of my signature, I reviewed and agree with the nursing past medical, surgical, social, and family history. There is no relevant family history pertinent to the patient complaint. Exam Narrative: General: Well-developed, well nourished, in no apparent distress Head: Normocephalic, atraumatic Eyes: Pupils equally round and reactive to light bilaterally, EOM intact, sclera and conjunctive clear, no discharge, lids normal Ears: TMs intact and clear, ear canals clear, no drainage, grossly hearing normal. Nose: Nares patent, clear nasal discharge, no inflammation, no sinus tenderness. Mouth: Oral pharynx without lesions or masses, good dentition, MMM. Oropharynx red Neck: Supple, trachea midline, no enlargement of anterior or posterior cervical nodes, no thyroid masses or goiter palpable. Cardio: Regular rate and rhythm, s1 and s2 normal, no murmur appreciated. Resp: expiratory wheezing in the lower bases, no rhonchi, rales, or rubs Course Course Emergency Course: Portions of this record may have been created with voice recognition software. Level of Care: Express Care Visit Vital Signs Vital signs: Vital Signs Temperature 36.8 C 10/06/22 16:16 Pulse Rate 86 10/06/22 16:16 Respiratory Rate 20 10/06/22 16:16 Blood Pressure 116/78 10/06/22 16:16 Pulse Oximetry 100 10/06/22 16:16 Temperature 36.8 C 10/06/22 16:16 Pulse Rate 86 10/06/22 16:16 Respiratory Rate 20 10/06/22 16:16 Blood Pressure 116/78 10/06/22 16:16 Pulse Oximetry 100 10/06/22 16:16 Vital signs reviewed MDM - URI/Sore Throat MDM Narrative Medical decision making narrative: At the time of visit patient is resting comfortably on the exam table. Strep screen was obtained was negative. I suspect the patient has URI/bronchitis. Prescription for prednisone albuterol inhaler was sent to the pharmacy. Supportive measures were discussed with the patient and she voiced understanding of discharge instructions and agrees to treatment plan. Differential Diagnosis Differential diagnosis: Likely upper respiratory infection, otitis media, sinusitis, viral infection, bronchitis, influenza, pharyngitis and other (covid) Lab Data Labs: Strep Screen Presumptive Negative *(Reference Range: Negative)* Discharge Plan Discharge
== END 2022-10-06 16:50 | disposition home or self-care (01) ==
PROVIDERS: Emergency Provider Nurse Practitioner Family; PCP Nurse Practitioner Adult Health
DX: J06.9 Acute upper respiratory infection, unspecified (principal); J40 Bronchitis, not specified as acute or chronic
CPT/HCPCS: 87081; 87880; 99213; G0463

== ENCOUNTER 2022-10-24 10:27 | Outpatient (CLI) | payer OTHER, SELFPAY ==
--- NOTE | ~2022-10-24 | US_ITS ---
EXAMINATION: US abdomen limited DATE: 10/24/2022 11:09 INDICATION: Left upper quadrant pain TECHNIQUE: Multiple grayscale and Doppler ultrasound images of the abdomen were obtained. COMPARISON: CT, 04/30/2020 FINDINGS: Bowel gas obscures visualization of the pancreas. The visualized portions of the pancreas a re unremarkable. The liver is normal with normal echogenicity and echotexture. No surface nodularity. Normal hepatopetal flow in the main portal vein. The gallbladder is normal with no abnormal wall thi ckening, pericholecystic fluid or stones. The normal common bile duct measures 2 mm. There was no son ographic Reveles sign. The spleen is normal in appearance and measures 11.6 cm. IMPRESSION: 1. No sonographic correlate for the patient's symptoms. Reviewed, dictated and finalized at location A. [employer]
== END 2022-10-24 10:28 | disposition home or self-care (01) ==
DX: R10.12 Left upper quadrant pain (principal)
CPT/HCPCS: 76705

== ENCOUNTER 2023-03-19 17:10 | Emergency (ER) | payer OTHER, SELFPAY ==
[2023-03-19 17:41] VITALS: BP 106/66; PULSE 68; RESP 20; TEMP 36.4; O2SAT 100
--- NOTE | 2023-03-19 17:52 | ED.URI ---
HPI - URI/Sore Throat General Chief Complaint: Upper Respiratory Infection Stated Complaint: Cold/Flu/ Ear Time Seen by Provider: 03/19/23 17:54 Source: patient, RN notes reviewed and old records reviewed Mode of arrival: ambulatory Limitations: no limitations History of Present Illness HPI Narrative: 22-year-old female presents to the [facility] with complaints of right ear, congestion since Saturday, 3 days No treatment prior to arrival. States that she did have a way to get to the store Onset (ago): day(s) (3) Related Data Allergies Allergy/AdvReac Type Severity Reaction Status Date / Time clindamycin Allergy Mild HIVES Verified 03/19/23 17:48 Sulfa (Sulfonamide Allergy Mild HIVES Verified 03/19/23 17:48 Antibiotics) vancomycin AdvReac Chills Verified 03/19/23 17:48 Review of Systems Review of Systems: All systems reviewed & are unremarkable except as noted in HPI and below Constitutional: Constitutional: Reports no additional constitutional complaints Eyes: Eyes: Reports no additional eye complaints ENT: Reports system reviewed and no additional complaints, except as documented Cardiovascular: Cardiovascular: Reports no additional cardiovascular complaints, Denies chest pain and Denies dyspnea Respiratory: Respiratory: Reports no additional respiratory complaints, Denies chest congestion, Denies cough and Denies dyspnea Gastrointestinal: Gastrointestinal: Reports no additional gastrointestinal complaints, Denies abdominal pain, Denies nausea and Denies vomiting Musculoskeletal: Musculoskeletal: Reports no additional musculoskeletal complaints Integumentary/Breasts: Skin/Breast: Reports system reviewed and no additional complaints, except as docu Neurologic: Reports system reviewed and no additional complaints, except as documented Psychiatric: Psychiatric: Reports no additional psychiatric complaints Allergic/Immunologic: Allergic/Immunologic: Reports no additional allergic/immunologic complaints [facility] Past Medical History Medical History (Updated 03/19/23 @ 18:02 by Charlene Allred APRN) No significant family history Surgical History Surgical History No pertinent past surgical history Social History Social History Occupation/Education: student Gender identity (if verbalized by the patient): Female Comments At the time of my signature, I reviewed and agree with the nursing past medical, surgical, social, and family history. There is no relevant family history pertinent to the patient complaint. Exam Const: General: cooperative, healthy appearing, comfortable, no acute distress, well developed, alert and well nourished Nutritional Appearance: well nourished Orientation/consciousness: patient oriented x3 Limitations: no limitations HENMT: Head: normal to inspection Ears: hearing grossly normal bilaterally and external ears normal Face/Nose/Sinus: Normal external nose present, Normal nares present, Normal nasal mucous membranes and turbinates present and normal facial exam Face and sinus: normal facial exam Mouth: Yes Normal oral and palatal mucosa present, Yes lip normal and Yes moist mucous membranes Throat: posterior oropharynx normal and uvula midline Eyes: General: appearance normal, both eyes and all related structures Alignment and Position: alignment normal Periorbital: periorbital findings normal Conjunctivae: conjunctivae normal Pupils: Equal, round and reactive pupils present EOM: EOMs intact bilaterally Neck: Neck: normal visual inspection, full ROM, no lymphadenopathy and no meningeal signs Chest: Chest palpation & inspection: normal inspection of the chest Resp: Effort & Inspection: normal respiratory effort and able to speak in complete sentences Auscultation: clear to auscultation bilaterally, no crackles, no rales, no rhonchi and no wheezes Cardio: Rate: reg
== END 2023-03-19 18:04 | disposition home or self-care (01) ==
PROVIDERS: Emergency Provider Nurse Practitioner; PCP Family Medicine
DX: J06.9 Acute upper respiratory infection, unspecified (principal); Z86.16 Personal history of COVID-19
CPT/HCPCS: 99213; G0463

== ENCOUNTER 2024-11-07 12:34 | Emergency (ER) | payer OTHER, SELFPAY ==
[2024-11-07 12:45] VITALS: BP 130/73; RESP 18; TEMP 36.7; O2SAT 100
--- NOTE | 2024-11-07 13:12 | ED_ITS ---
HPI - Animal Bite General Chief Complaint: Animal Bite Stated Complaint: Bite Left/Right Arm Time Seen by Provider: 11/07/24 13:12 Source: patient, RN notes reviewed and old records reviewed Mode of arrival: ambulatory Limitations: no limitations History of Present Illness HPI narrative: 23-year-old female presents to the [facility] with complaints of cat scratches to her bilateral arms, 1 puncture wound to the dorsal aspect of the wrist. No foreign bodies. Happened approximately 1 hour prior to arrival. Unknown last dad. Related Data Home Medications ?Medication ?Instructions ?Recorded ?Confirmed ?Last Taken ?Type fluoxetine 10 mg capsule mg 11/07/24 Unknown History Allergies Allergy/AdvReac Type Severity Reaction Status Date / Time clindamycin Allergy Mild HIVES Verified 11/07/24 12:45 Sulfa (Sulfonamide Allergy Mild HIVES Verified 11/07/24 12:45 Antibiotics) vancomycin AdvReac Mild Chills Verified 11/07/24 12:45 Review of Systems Review of Systems: All systems reviewed & are unremarkable except as noted in HPI and below Constitutional: Constitutional: Reports no additional constitutional complaints ENT: Reports system reviewed and no additional complaints, except as documented Cardiovascular: Cardiovascular: Reports no additional cardiovascular complaints, Denies chest pain and Denies dyspnea Respiratory: Respiratory: Reports no additional respiratory complaints, Denies chest congestion, Denies cough and Denies dyspnea Musculoskeletal: Musculoskeletal: Reports no additional musculoskeletal complaints Integumentary/Breasts: Skin/Breast: Reports as per HPI PMFSH Past Medical History Medical History No significant family history Surgical History Surgical History No pertinent past surgical history Social History Social History Occupation/Education: student Gender identity (if verbalized by the patient): Female Comments At the time of my signature, I reviewed and agree with the nursing past medical, surgical, social, and family history. There is no relevant family history pertinent to the patient complaint. Exam Const: General: cooperative, healthy appearing, comfortable, no acute distress, well developed, alert and well nourished Nutritional Appearance: well nourished Orientation/consciousness: patient oriented x3 Limitations: no limitations HENMT: Head: normal to inspection Eyes: General: appearance normal, both eyes and all related structures Alignment and Position: alignment normal Neck: Neck: normal visual inspection, full ROM, no lymphadenopathy and no meningeal signs Chest: Chest palpation & inspection: normal inspection of the chest Resp: Effort & Inspection: normal respiratory effort and able to speak in complete sentences Cardio: Rate: regular rate Skin: General skin exam: normal color and no rashes or lesions noted Other: Multiple superficial scratches to bilateral forearms. One puncture wound is noted to the dorsal aspect of left wrist. No signs of drainage. No increased erythema. Full range of motion of bilateral wrist. 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 Capillary refill under 2 seconds. Radial pulse positive bilateral Neuro: General: patient oriented x3, gait normal, moves all extremities and no meningeal signs Cognition (Neuro): normal cognition Speech: normal speech Gait exam (Neuro): Normal gait present Extrem: General: normal to inspection, full ROM, capillary refill normal and normal gait Psych: Appearance: grossly normal and well kempt Mental Status: mental status grossly normal Speech and movement: Normal speech and movement present and Clear speech present Affect: normal affect Attitude: cooperative Course Course Level of Care: Express Care Visit Vital Signs Vital signs: Vital Signs Temperature 98.1 F 11/07/24 12:45 Respiratory Rate 18 11/07/24 12:45 Blood Pressure 130/73 11/07/24 12:45 Pulse Oximetry 100 11/07/24 12:45 Oxygen Delivery Room Air 11/07/24 12:45 Temperature 98.1 F 11/07/24 12:45 Respiratory Rate 18 11/07/24 12:45 Blood Pressure 130/73 11/07/24 12:45 Pulse Oximetry 100 11/07/24 12:45 Oxygen Delivery Room Air 11/07/24 12:45 Reviewed MDM - Animal Bite MDM Narrative Medical decision making narrative: Patient sitting comfortably in exam room. Nontoxic, vitals stable. Patient presents with bilateral scratches to her arms from a CT. Patient's last tetanus unknown, updated She area cleaned with both wound cleanser and then Betadine. Patient appropriate for outpatient treatment and follow-up Discharge instructions reviewed with patient, as well as provided in writing per nursing staff. The instructions also include specific and strict return/GO TO THE ER as well as f/u information. All questions have been answered, and the patient deny any further questions with discharge and discharge plan. Some parts of this dictation were generated by voice recognition software and may contain typographical and/or grammatical inaccuracies. Differential Diagnosis Differential diagnosis: Likely bite by animal and cat bite Critical Care Time Critical Care Time Critical Care Time: No Discharge Plan Discharge Clinical Impression: Cat scratch of multiple sites, Vaccine for gikpbdytpt-[id number], combined Cat bite Qualifiers: Encounter type: initial encounter Qualified Code(s): W55.01XA - Bitten by cat, initial encounter Patient Disposition: Home, Self-Care Condition: Stable Instructions: Antibiotic Form, Animal Bite (ED) Additional Instructions: Wash areas 2 to 3 times a day with warm soapy water, preferably an antibacterial soap. Pat dry. Follow up primary care provider For new or worsening symptoms go directly to the emergency room Patient Language: Dutch Prescriptions: New amoxicillin-pot clavulanate 875-125 mg tablet 1 tablet PO Q12H Qty: 20 0RF No Action fluoxetine 10 mg capsule fluticasone propionate [Flonase Allergy Relief] 50 mcg/actuation spray,suspension 2 spray intranasal DAILY Qty: 16 0RF Rx Instructions: administer into each nostril loratadine 10 mg tablet 10 mg PO DAILY Qty: 30 0RF Follow-up/Referrals: Dillon,Neda Ramirez APRN [Primary Care Provider] - 1 Week (express care follow up ) Stand Alone Forms: Work/School Release IP Time of Disposition: 13:34
[2024-11-07] MEDS: TETANUS,DIPHTHERIA,AC PERTUSSIS ADULT (0.5 ML) BOOSTRIX IM (13:13)
--- OUTSIDE RECORDS SUMMARY | 2024-11-14 19:14 | XMS_ITS | Referral Summary ---
Author Organization [facility] Address [address] [place] [address] Care Team Providers Care Alarm Signaler Name Role Phone Katie Kellogg MD Primary Care Provider [phone] Source Comments [facility],non-owned Affiliates and Associated Physician Practices is amultiple site organization consisting of ambulatory clinics and hospital sitesin [place], [place], [place] and [place]. This disclosure is being madepursuant to the Care Everywhere program and may not contain all information available regarding this patient. Last updated 18.[facility] Allergies Active Allergy Reactions Criticality Noted Date Comments Clindamycin Urticaria 03/27/2011 Sulfa Drugs Urticaria 03/27/2011 Medications * Be aware that medications may not be up to date on this document. Alwaysverify current medications with the patient. Medication Sig Dispensed Refills Start Date End Date Status Levonorgestrel (CRISTIAN) 13.5 MG Active PREDNISONE, GHADA, PO Take 1 tablet by mouth once daily Active fluconazole (DIFLUCAN) 200 MG tabletIndications:Vul amrit itching,Vulvar burning,Subacute vulvitis Diflucan 200 mg tablet, one by mouth every other day for three doses. 3 tablet 05/04/2019 Active Active Problems Problem Noted Date Diagnosed Date Superficial thrombophlebitis of left upper extre mity 11/19/2018 Blood in stool 05/29/2018 Generalized abdominal pain 05/29/2018 Chronic diarrhea 05/28/2018 Chronic daily headache 02/25/2017 Assessment & Plan (02/25/2017 2:31 PM CDT): Prior migraines have improved but recent headaches are more of a tension type and likely related to multiple lifestyle issues, school related stressors increased environmental sensitivities and neck tightness. 1. Keep headache diary 2. Maintain active lifestyle 3. Eat healthy diet, and do not skip meals. 4. Drink plenty of water, and avoid caffeine regularly. 5. Sleep: 1. Maintain good sleep routine. 2. Avoid distractions at bedtime such as TV, computer. 3. Get at least 8-10 hours of sleep nightly 4. Trial of Melatonin 1-3 mg in the evening to help her calm down to improve sleep onset. 6. Do not use pain medication (such as Tylenol, Ibuprofen) more than 2-3 times/week in order to avoid medication overuse headaches 7. Comfort measures, relaxation techniques etc to address milder headaches. 8. Can take Naproxen 500 mg tabs - only for moderate-severe headaches 9. Refer to Physical Therapy for neck tightness 10. Continue seeing counselor to address stressors which are triggers for her headaches. 11. Call for worsening headaches or other neurological concerns. Headache 06/01/2014 Overview (09/18/2015): Assessment & Plan (06/01/2014 3:12 PM CDT): Headache had migrainous features but was likely triggered by significant school stressors, poor diet, hydration and sleep. 1. Keep headache diary 2. Maintain active lifestyle 3. Eat healthy diet, and do not skip meals 4. Drink plenty of water, and avoid caffeine regularly. 5. Sleep: 1. Maintain good sleep routine. 2. Avoid distractions at bedtime such as TV, computer. 3. Get at least 8-10 hours of sleep nightly 6. Do not use pain medication (such as Tylenol, Ibuprofen) more than 2-3 times/week in order to avoid medication overuse headaches 7. Use Ibuprofen or Excedrin as you were doing for moderate-severe headaches only. 8. Call if headaches increase in frequency after the start of the school year (>2-3 times a week) to consider starting a daily preventative medication. Distal radius fracture, right 04/20/2014 Resolved Problems Problem Noted Date Diagnosed Date Resolved Date Diarrhea 05/29/2018 06/26/2018 Migraine 02/20/2017 02/25/2017 Social History Tobacco Use Types Packs/Day Years Used Date Smoking Tobacco: Never Smokeless Tobacco: Never Alcohol Use Standard Drinks/Week Comments No 0 (1 standard drink = 0.6 oz pur e alcohol) Sex and Gender Information Value Date Recorded Sex Assigned at Not on file Gender Identity Not on file Sexual Orientation Not on file Last Filed Vital Signs Vital Sign Reading Time Taken Comments Blood Pressure 120/68 05/04/2019 11:34 AM CDT 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
--- OUTSIDE RECORDS SUMMARY | 2024-11-14 19:14 | XMS_ITS | Clinical Summary ---
Author Organization [facility] Address [address] [place] [address] Care Team Providers Care Concrete Spreader Name Role Phone Katie Kellogg MD Primary Care Provider [phone] Source Comments [facility],non-owned Affiliates and Associated Physician Practices is amultiple site organization consisting of ambulatory clinics and hospital sitesin [place], [place], [place] and [place]. This disclosure is being madepursuant to the Care Everywhere program and may not contain all information available regarding this patient. Last updated 18.[facility] Allergies Active Allergy Reactions Criticality Noted Date [...] Date Diarrhea 05/29/2018 06/26/2018 Migraine 02/20/2017 02/25/2017 Family History Medical History Relation Name Comments Other Maternal Aunt IBS Other Maternal Grandfather IBS Other Paternal Grandfather IBS Celiac Disease Neg Hx Crohn's Disease Neg Hx Ulcerative Colitis Neg Hx Relation Name Status Comments Father Alive Maternal Aunt Maternal Grandfather Alive Maternal Grandmother Alive Mother Alive Paternal Grandfather Alive Paternal Grandmother Alive Social History Tobacco Use Types Packs/Day Years [...] AM CDT Pulse 60 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 Temperature 37.1 ??C (98.8 ??F) 11/19/2018 3:28 PM CS T Respiratory Rate 16 05/19/2018 9:50 AM CDT p er pcp Oxygen Saturation - - Inhaled Oxygen Concentration - - Weight 73.5 kg (162 lb) 05/04/2019 11:34 AM CDT Height 160 cm (5' 3 ) 05/04/2019 11:34 AM CDT Body Mass Index 28.7 05/04/2019 11:34 AM CDT Plan of Treatment Health Maintenance Due Date Last Done Comments PAP SMEAR 2000 HIV SCREENING 2015 HPV VACCINE (1 - 3-dose series) 2015 CHLAMYDIA/GONORRHEA SCREENING 2016 HEPATITIS C SCREENING 12/17/2018 DTAP/TDAP/TD VACCINES (1 - Tdap) 2019 HEPATITIS B VACCINE (1 of 3 - 19+ 3-dose series) 2019 DEPRESSION SCREENING 11/11/2023 COVID-19 VACCINE ( - 2023-2 5 season) 2024 INFLUENZA VACCINE (#1) 2024 ZOSTER VACCINE (1 of 2) 2050 HIB VACCINE Aged Out No longer eligi ble based on patient's age to complete this topic MENINGOCOCCAL VACCINE Aged Out No edward elias eligible based on patient's age to complete this topic PNEUMOCOCCAL VACCINE Aged Out No long er eligible based on patient's age to complete this topic Care Teams Concrete Spreader Relationship Specialty Start Date End Date Katie Kellogg MD [address] [place] [address] PCP - General 05/31/18
--- OUTSIDE RECORDS SUMMARY | 2024-11-14 19:14 | XMS_ITS | Data Portability ---
Author Organization [facility] [place] Address [address] [place] [address] Assessment No assessment recorded. Plan of Treatment Reminders Order Date Submit Date Provider Last Modified By Organization Details Last Modified Time Details Appointments U/S OB DATING/ VIABILI TY 2024 11:00A M ULTRASOUND Not available Not available Not available Lab CT + NG + TV, RNA, unspeci fied specime n 2023 024 [facility] (Lab), [address] [place], [address], 07/21/2024 13:40:50 Referral None recorde d. Procedures None recorde d. Surgeries None recorde d. Imaging None recorde d. Medication Orders NuvaRin g 0.12 mg-0.01 5 mg/24 hr vaginal 2022 [address]23 [id number], [address], [place], [id number], 03/26/2024 14:43:45 metroni dazole 500 mg tablet 2023 024 [facility]80, [address] [place], [place], [id number], 09/29/2024 13:23:50 Difluca n 200 mg tablet 2023 024 [facility]58053, [address], [place], [id number], 09/29/2024 13:23:39 triamci nolone acetoni de 0.1 % topical ointmen t 2023 [facility] #48411, [address], [place], [place], [id number], 09/29/2024 13:24:00 Difluca n 150 mg tablet 2023 [facility] #11682, [address], [place], [place], [id number], 09/29/2024 13:45:02 clotrim azole-b etameth asone 1 %-0.05 % topical cream 2023 [facility] #96656, [address], [place], [place], [id number], 09/29/2024 13:45:05 metroni dazole 500 mg tablet 2023 [facility] #63597, [address], [place], [place], [id number], 09/29/2024 13:45:07 NuvaRin g 0.12 mg-0.01 5 mg/24 hr vaginal 2023 [facility] #40557, [address], [place], [place], [id number], 09/29/2024 13:46:11 Patient TargetsNo targets recorded. Patient InstructionsNo instructions recorded. Reason for Referral None Reported. Results Created Date Observation Date Name Description Value Unit Range Abnormal Flag Note LastModifiedBy Organization Detail LastModifiedTime 10/08/2010/08/2023 IMAGE GUIDE D PAP, REFLE X HPV IF ASCUS ONLY image guided Pap, reflex HPV ASCUS only SEE RESULT S BELOW CASE REPOR T: Cytol ogy Gynec ologi latia Repor t Case: [id number] Autho rizin g Provi yoon: Kyra Prieto, MIR James cted: 10/08 1557 Order ing Locat ion: [place] Patho natalie Recei nila: 10/09 0927 First Scree n: Pamela Melgar ica Speci men: Scree ismael Pap - Image d, Cervi x STATE MENT OF ADEQU ACY: Satis facto ry for evalu ation Trans forma tion zone compo nent prese nt FINAL DIAGN OSIS: Negat jeremiah for Intra epith elial Lesio n or Inderjit lemos (NIL) . Elect donna lorraine jennyfer d by Pamela Melgar ica on 2022 at 9:27 AM ----- ----- ----- ----- ----- ----- ----- ----- ----- ----- ----- ----- ----- ----- ----- ----- ----- ---- COMME NT: This speci men was revie wed by a Cytot echno logis t and/o r Patho logis t (as indic ated in this repor t) after evalu ation using the Thinp rep Imagi ng Syste m. CLINI LATIA INFOR MATIO N: Menst rual Statu s: LMP (if appli cable ): Clini latia Histo ry/Pr eviou s Pap: Type of Neopl uzma (if appli cable ): Signi fican t Clini latia Findi ngs: Other Histo ry: Hormo vicki (if appli cable ): PAP EDUCA JERAMY L NOTE: The Pap Test is a scree ismael test with an inher ent false negat jeremiah rate. Liqui d-bas ed sampl ing may decre ase, but will not elimi hector, false negat jeremiah resul ts. A negat jeremiah resul t does not precl ude the prese nce and/o r devel opmen t of disea se, since the prese nce of abnor mal cells in the sampl e depen ds on the locat ion of the lesio n and sampl ing techn ique. Stephanie nued regul ar scree ismael is the best metho d of cance r preve ntion . If repor bridget cytol ogic findi ng do not corre late with physi latia and/o r histo rical findi ngs, furth er inves tigat ion is recom karl d, as clini shanna javier nted. Not Available [facility] (Lab) [address], [place], [address], 10/11/2023 10:31:14 10/08/20 23 10/08/2023 CT/GC (DENZEL) , THINP REP VIAL chlamydia trachomatis, PCR Negati ve negati ve Not Available [facility] (Lab) [address], [place], [address], 10/11/2023 10:31:15 10/08/20 23 10/08/2023 CT/GC (DENZEL) , THINP REP VIAL neisseria gonorrhoeae, PCR Negati ve negati ve Not Available [facility] (Lab) [address], [place], [address], 10/11/2023 10:31:15 10/08/20 23 10/08/2023 TRICH OMONA S VAGIN RADHA (RRNA ) trichomonas vaginalis ribosomal RNA (rrna) Negati ve negati ve Not Available [facility] (Lab) [address], [place], [address], 10/11/2023 10:31:16 10/08/20 23 10/08/2023 urina lysis , dipst ick Leukocytes normal Not Available [facility] [address], [place], [address], 10/08/2023 15:32:43 10/08/20 23 10/08/2023 urina lysis , dipst ick Nitrite normal Not Available [place] [address], [place], [address], 10/08/2023 15:32:43 10/08/20 23 10/08/2023 urina lysis , dipst ick Urobilinogen normal Not Available [facility] ava [address], [place], [address], 10/08/2023 15:32:43 10/08/20 23 10/08/2023 urina lysis , dipst ick Protein trace Not Available [place] [address], [place], [address], 10/08/2023 15:32:43 10/08/20 23 10/08/2023 urina lysis , dipst ick pH 8 Not Available [place] [address], [place], [address], 10/08/2023 15:32:43 10/08/20 23 10/08/2023 urina lysis , dipst ick Blood trace Not Available [place] [address], [place], [address], 10/08/2023 15:32:43 10/08/20 23 10/08/2023 urina lysis , dipst ick Specific [place] 1.000 Not Available [facility] preethi [address], [place], [address], 10/08/2023 15:32:43 10/08/20 23 10/08/2023 urina lysis , dipst ick Ketone normal Not Available [place] [address], [place], [address], 10/08/2023 15:32:43 10/08/20 23 10/08/2023 urina lysis , dipst ick Bilirubin normal Not Available [facility] [address], [place], [address], 10/08/2023 15:32:43 10/08/20 23 10/08/2023 urina lysis , dipst ick Glucose normal Not Available [place] [address], [place], [address], 10/08/2023 15:32:43 10/08/20 23 10/08/2023 urina lysis , dipst ick Appearance normal Not Available [facility] [address], [place], [address], 10/08/2023 15:32:43 10/08/20 23 10/08/2023 urina lysis , dipst ick Color normal Not Available [place] [address], [place], [address], 10/08/2023 15:32:43 10/08/20 23 10/08/2023 pregn jeffrey test, urine HCG negati ve Not Available [place] [address], [place], [address], 10/08/2023 15:32:08 07/20/20 24 07/20/2024 CT/GC AND TRICH OMONA S VAGIN RADHA (RRNA ), SWAB chlamydia trachomatis, PCR Negati ve negati ve Not Available [facility] (Lab) [address], [place], [address], 07/21/2024 13:40:50 07/20/20 24 07/20/2024 CT/GC AND TRICH OMONA S VAGIN RADHA (RRNA ), SWAB neisseria gonorrhoeae, PCR Negati ve negati ve Not Available [facility] (Lab) [address], [place], [address], 07/21/2024 13:40:50 07/20/20 24 07/20/2024 CT/GC AND TRICH OMONA S VAGIN RADHA (RRNA ), SWAB trichomonas vaginalis ribosomal RNA (rrna) Negati ve negati ve Not Available [facility] (Lab) [address], [place], [address], 07/21/2024 13:40:50 09/29/20 24 09/29/2024 WOMEN 'S [facility] SWAB PLUS, CAMPOS bacterial vaginosis (bv), tma Negati ve negati ve Not Available [facility] (Lab) [address] [place], [address], 10/01/2024 07:38:23 09/29/20 24 09/29/2024 [facility], CAMPOS anabela species, tma Positi ve negati ve abnormal Not Available [facility] (Lab) [address], [place], [address], 10/01/2024 07:38:23 09/29/20 24 09/29/2024 WOMEN 'S HEALT H SWAB PLUS, CAMPOS anabela glabrata, tma Negati ve negati ve Not Available [facility] (Lab) [address], [place], [address], 10/01/2024 07:38:23 09/29/20 24 09/29/2024 [facility] SW[facility], CAMPOS trichomonas vaginalis, tma Negati ve negati ve Not Available [facility] (Lab) [address], [place], [address], 10/01/2024 07:38:23 09/29/20 24 09/29/2024 [facility] SWAB [facility]US, CAMPOS chlamydia trachomatis, PCR Negati ve negati ve Not Available [facility] (Lab) [address] [place], [address], 10/01/2024 07:38:23 09/29/20 24 09/29/2024 WOMEN 'S HEALT H SWAB PLUS, CAMPOS neisseria gonorrhoeae, PCR Negati ve negati ve Bacte rial vagin osis detec ts the follo wing bacte jackelin assoc iated with bacte rial vagin osis (BV): Lacto bacil hung (L. gasse ri, L. crisp atus and L. jense soledad), Gardn erell a vagin radha, and Atopo bium vagin ae. A singl e quali tativ e resul t is repor bridget base on instr ument softw are to deter mine BV posit jeremiah or negat jeremiah statu s. The Claudia [facility] speci es group tests for C. albic ans, C. tropi calis , C. parap francisco is, C. dubli niens is. Testi ng is perfo rmed using the Trans cript ion Media bridget Ampli ficat ion metho d. Tests for Claudia da glabr andie, Trich omona s vagin radha, Chlam ydia trach omati s, and Neiss eria gonor rhoea e are also inclu ded in this panel . Not Available [facility] (Lab) [address], [place], [address], 10/01/2024 07:38:23 11/10/20 24 11/10/2024 BHCG, QUANT ITATI VE B-HCG 949.0 mIU/m L This assay was perfo rmed using [employer] ratio n reage nts and test kits. Value s obtai chelsea with other assay metho ds or kits canno t be used inter puentes eably . Refer ence Range s: Non-p regna nt, preme nopau gianna women : 0.0-5 .3 mIU/m L Postm enopa usal women : 0.0-7 .0 mIU/m L Linda l Pregn jeffrey: Gesta jeramy l Age bHCG Conc. - mIU/m L 3 Weeks 5.8 - 71.7 4 Weeks 9.5 - 750 5 Weeks 217-7 138 6 Weeks 158 - 31,79 5 7 Weeks 3,697 - 162,5 63 8 Weeks 32,06 5 - 149,5 71 9 Weeks 63,80 3 - 151,4 10 10 Weeks 46,50 9 - 186,9 77 12 Weeks 27,83 2 - 210,6 12 14 Weeks 13,95 0 - 62,53 0 15 Weeks 12,03 9 - 70,97 1 16 Weeks 9,040 - 56,45 1 17 Weeks 8,175 - 55,86 8 18 Weeks 8,099 - 58,17 6 Not Available [facility] (Lab) [address], [place], [address], 11/11/2024 05:01:41 10/15/20 23 10/15/2023 imagi ng/di agnos tic resul t No observ ation record ed. [place] [address] [address], [place], [address], 10/18/2023 13:56:52 10/15/20 23 10/15/2023 US, pelvi s No observ ation record ed. [address], [place], [address], 10/18/2023 13:56:52 10/15/20 23 10/15/2023 US, trans vagin al No observ ation record ed. [address], [place], [address], 10/18/2023 13:56:52 Result Notes None recorded. Procedures Surgical History Date Name Laterality Status Provider Name and Address Organization Details Recorded Time 10/08/20 Date of Last Pap Smear completed Luciemagnolia Liriano [facility] 10/08/2023 16:15:23 09/11/20 21 procedure on nose completed Nia Sigala [facility] 03/20/2022 15:13:46 06/11/20 21 Laparoscopy completed Lucie Liriano [facility] 04/16/2022 19:46:46 09/17/20 18 laparoscopic excision of cyst of right ovary completed Lucie Liriano [facility] 04/16/2022 19:44:54 11/11/19 12 procedure on fingernail completed Lucie Liriano [facility] 04/16/2022 19:45:23 11/11/19 11 tonsillectomy and adenoidectomy completed Lucie Liriano [facility] 04/16/2022 19:45:36 11/11/19 05 removal of silastic tubes from ear completed [facility] [place] 04/16/2022 19:46:07 11/11/19 04 removal of silastic tubes from ear completed [facility] [place] 04/16/2022 19:46:03 11/11/19 03 removal of silastic tubes from ear completed [facility] [place] 04/16/2022 19:46:00 11/11/19 02 Unlisted px ant segment eye completed [facility] [place] 04/16/2022 19:44:41 11/11/19 02 removal of silastic tubes from ear completed [facility] [place] 04/16/2022 19:45:58 Imaging Results Imaging Date Name Status LastModified by Organization Details LastModified Time 10/15/2023 imaging/diagnost ic result completed [place] [address] [address], [place], [address], 10/18/2023 13:56:52 10/15/2023 US, pelvis completed [address], [place], [address], 10/18/2023 13:56:52 10/15/2023 US, transvaginal completed [address], [place], [address], 10/18/2023 13:56:52 Procedure Notes None recorded. Medical Equipment None Reported. Allergies Allergen ID Allergen Name Allergen Category Reaction Reaction Severity Criticality Documentation Date Start Date Code Code System Note Provider Name and Address Organization Details Recorded Time 63344 vancomyci n medicatio n Not available Not available Not available 03/20/2022 50163 RxNorm Nia Sigala [facility] 15:11:57 95892 ethinyl estradiol / norelgest romin medicatio n nausea Not available low 10/18/2023 59775 7 RxNorm Kay lopez, [facility]- [address], [place], [address] , [facility] 3 13:53:24 853 clindamyc in Not available hives Not available Not available 04/14/2020 2582 RxNorm Crystal Trell oliveira kj, [facility] 0 01:19:48 854 Substance with sulfonami de structure and antibacte rial mechanism of action (substanc e) medicatio n hives Not available Not available 04/14/2020 99497 8003 SNOMED Crystal Trell underwood, [facility] 0 01:20:00 Medications Name Sig Start Date Stop Date Status Note LastModified by Organization Details LastModified Time bupropion HCl SR 150 mg tablet,12 hr sustained -release TAKE 1 TABLET BY MOUTH EVERY MORNING FOR 3 DAYS. INCREASE TO 1 TABLET 2 TIMES A DAY 04/20 completed Not Available Not Available Not Available prednison e 10 mg tablet 12/19 completed Not Available Not Available Not Available doxycycli ne hyclate 100 mg capsule Take 1 capsule twice a day by oral route for 7 days. 10/18 completed Not Available Not Available Not Available azithromy alejandra 250 mg tablet 03/20 completed Not Available Not Available Not Available ibuprofen 800 mg tablet 03/20 completed Not Available Not Available Not Available Lidocaine Viscous 2 % mucosal solution GARGLE AND SPIT 5 ML FOUR TIMES DAILY NEEDED FOR PAIN 03/20 completed Not Available Not Available Not Available fluconazo le 150 mg tablet Take 1 tablet every 72 hours by oral route. 2024 active Not Available Not Available Not Avai lable fluconazo le 200 mg tablet TAKE 1 TABLET BY MOUTH EVERY OTHER DAY FOR 3 DOSES 09/29 completed Not Available Not Available Not Available metronida zole 0.75 % (37.5 mg/5 gram) vaginal gel INSERT 1 APPLICAT ORFUL VAGINALL Y EVERY DAY AT BEDTIME FOR 5 DAYS 12/19 completed Not Available Not Available Not Available prednison e 20 mg tablet TAKE 2 TABLETS BY MOUTH DAILY FOR 5 DAYS 04/20 completed Not Available Not Available Not Available terconazo le 0.8 % vaginal cream INSERT 1 APPLICAT ORFUL VAGINALL Y AT BEDTIME FOR 3 DAYS 03/20 completed Not Available Not Available Not Available metronida zole 500 mg tablet TAKE 1 TABLET BY MOUTH EVERY 12 HOURS WITH FOOD FOR 7 DAYS. AVOID ALCOHOL active Not Available Not Available No t Available ciproflox acin 500 mg tablet 03/20 completed Not Available Not Available Not Available doxycycli ne monohydra te 100 mg tablet take 1 tablet by oral route 2 times every day 10/07 completed Prescrib ed Elsewher e: No Locat ion: [facility]ify By: velia mendez DateTime : 09/25/20 18 03:45:43 PM Not Available Not Available Not Available tramadol 50 mg tablet 09/29 completed Not Available Not Available Not Available Macrobid 100 mg capsule take 1 capsule by oral route every 12 hours with food, as directed 09/22 completed Prescrib ed Elsewher e: No Locat ion: [facility] By: velia mendez DateTime : 04/21/20 18 01:45:00 PM Not Available Not Available Not Available oxycodone -acetamin ophen 5 mg-325 mg tablet TAKE 1 TABLET BY MOUTH EVERY 6 HOURS NEEDED FOR ACUTE PAIN 03/20 completed Not Available Not Available Not Available propranol ol 10 mg tablet 04/20 completed Not Available Not Available Not Available hydrocodo ne 7.5 mg-acetam inophen 325 mg tablet TAKE 1 TABLET BY MOUTH EVERY 4 HOURS NEEDED 03/20 completed Not Available Not Available Not Available cephalexi n 500 mg capsule TAKE ONE CAPSULE BY MOUTH TWICE DAILY FOR 6 DAYS 03/20 completed Not Available Not Available Not Available triamcino lone acetonide 0.1 % topical ointment APPLY A THIN LAYER TO THE AFFECTED VULVAR AREA(S) BY TOPICAL ROUTE 2 TIMES PER DAY PRN active Not Available Not Available No t Available nystatin 100,000 unit/gram topical cream APPLY TO THE AFFECTED AREA TWICE DAILY active Not Available Not Available No t Available clotrimaz ole-betam ethasone 1 %-0.05 % topical cream Apply by topical route for 7 days. 2023 active Not Available Not Available Not Avai lable lidocaine 5 % topical patch PLACE 1 PATCH ONTO THE SKIN DAILY FOR 30 DAYS. REMOVE AND DISCARD PATCH WITHIN 12 HOURS OR DIRECTED RAVEN HUNT 04/20 completed Not Available Not Available Not Available fluoxetin e 10 mg capsule active Not Available Not Available Not Available amoxicill in 400 mg/5 mL oral suspensio n take 6.25 millilit er by oral route every 8 hours 04/21 completed Prescrib ed Elsewher e: Yes [facility] By: velia mendez DateTime : 01/01/20 17 02:30:00 PM Not Available Not Available Not Available mupirocin 2 % topical ointment APPLY TOPICALL Y TO THE AFFECTED AREA THREE TIMES DAILY 03/20 completed Not Available Not Available Not Available diclofena c sodium 50 mg tablet,de layed release 04/20 completed Not Available Not Available Not Available gabapenti n 100 mg capsule 04/20 completed Not Available Not Available Not Available clobetaso l 0.05 % topical ointment APPLY TOPICALL Y TO THE AFFECTED AREA TWICE DAILY NEEDED 12/19 completed Not Available Not Available Not Available methylpre dnisolone 4 mg tablets in a dose pack FOLLOW PACKAGE DIRECTIO NS active Not Available Not Available No t Available albuterol sulfate HFA 90 mcg/actua tion aerosol inhaler INHALE 2 PUFFS BY MOUTH EVERY 4 TO 6 HOURS NEEDED FOR SHORTNES S OF BREATH OR WHEEZING active Not Available Not Available No t Available Vitamin D2 1,250 mcg (50,000 unit) capsule take 1 capsule by oral route every week 10/07 completed Prescrib ed Elsewher e: No [facility] By: velia mendez DateTime : 04/23/20 18 10:14:31 AM Not Available Not Available Not Available hydroxyzi ne HCl 10 mg tablet active Not Available Not Available No t Available ondansetr on 4 mg disintegr ating tablet DISSOLVE 1 TABLET ON THE TONGUE EVERY 4 TO 6 HOURS NEEDED FOR NAUSEA OR VOMITING 04/20 completed Not Available Not Available Not Available cefdinir 300 mg capsule take 1 capsule by oral route every 12 hours 01/16 completed Prescrib ed Elsewher e: No Locat ion: [facility] odify By: jeff dougherty DateTime : 10/15/20 18 09:15:13 AM Not Available Not Available Not Available ParaGard T 380A 380 square mm intrauter ine device 10/07 completed Prescrib ed Elsewher e: Yes Loca tion: [facility]ify By: velia mannuntbhavesh DateTime : 04/21/20 18 01:45:00 PM Not Available Not Available Not Available doxycycli ne hyclate 100 mg tablet TAKE 1 TABLET BY MOUTH TWICE DAILY FOR 10 DAYS 03/20 completed Not Available Not Available Not Available Hibiclens 4 % topical liquid BATHE WITH SOAP WEEKLY 03/20 completed Not Available Not Available Not Available amoxicill in 875 mg-potass ium clavulana te 125 mg tablet 04/20 completed Not Available Not Available Not Available azithromy alejandra 1 gram oral packet TAKE 2 GRAMS BY MOUTH FOR ONE DOSE 03/20 completed Not Available Not Available Not Available Bactrim DS 800 mg-160 mg tablet take 1 tablet by oral route every 12 hours 10/14 completed Prescrib ed Elsewher e: No Locat ion: [facility] odify By: katerin ospina DateTime : 10/13/20 18 03:08:36 PM Not Available Not Available Not Available azithromy alejandra 500 mg tablet TAKE 2 TABLETS BY MOUTH TODAY 03/20 completed Not Available Not Available Not Available Lor 0.35 mg tablet take 1 tablet by oral route every day 10/07 completed Prescrib ed Elsewher e: No Locat ion: [facility]ify By: velia mendez DateTime : 04/21/20 18 01:45:00 PM Not Available Not Available Not Available cyclobenz aprine 5 mg tablet 04/20 completed Not Available Not Available Not Available Paula 14 mcg/24 hr (up to 3 years) 13.5 mg intrauter ine device 02/10 completed Prescrib ed Elsewher e: Yes Loca tion: [facility]ify By: katerin ospina DateTime : 11/18/19 03:00:00 PM Not Available Not Available Not Available Suprax 400 mg capsule take 1 capsule by oral route every day 01/16 completed Prescrib ed Elsewher e: No Locat ion: [facility] odify By: jeff dougherty DateTime : 10/13/20 18 03:09:37 PM Not Available Not Available Not Available Xulane 150 mcg-35 mcg/24 hr transderm al patch APPLY 1 PATCH TOPICALL Y TO THE SKIN EVERY WEEK 04/20 completed Not Available Not Available Not Available Vienva 0.1 mg-20 mcg tablet TAKE ONE TABLET BY MOUTH ONCE DAILY 03/20 completed Not Available Not Available Not Available Slynd 4 mg (28) tablet TAKE 1 TABLET BY MOUTH DAILY. START ON 4 TH DAY OF MENSES 03/20 completed Not Available Not Available Not Available BinaxNOW COVID-19 Ag Self Test kit TEST DIRECTED TODAY 08/22 completed Not Available Not Available Not Available EnilloRin g 0.12 mg-0.015 mg/24 hr vaginal ring Insert 1 vaginal ring every month by vaginal route as directed for 30 days, for regulate periods. active Not Available Not Available No t Available Vitals Date Recorded Body height Body mass index (BMI) Body weight Systolic blood pressure Diastolic blood pressure Provider Name and Address Organization Details Last Updated DateTime 10/18/2023 162.56 cm 28.5 kg/m2 75897.33 g 105 mm[Hg] 73 mm[Hg] Veronica Bond [facility] 3 13:25:13 Date Recorded Body height Body mass index (BMI) Body weight Systolic blood pressure Diastolic blood pressure Provider Name and Address Organization Details Last Updated DateTime 12/19/2023 162.56 cm 28.7 kg/m2 67899.93 g 116 mm[Hg] 72 mm[Hg] [facility] 4 16:56:17 Date Recorded Body height Body mass index (BMI) Body weight Systolic blood pressure Diastolic blood pressure Provider Name and Address Organization Details Last Updated DateTime 03/26/2024 162.56 cm 27.6 kg/m2 12215.37 g 112 mm[Hg] 78 mm[Hg] [facility] 14:43:12 Date Recorded Body height Body mass index (BMI) Body weight Systolic blood pressure Diastolic blood pressure Provider Name and Address Organization Details Last Updated DateTime 07/20/2024 162.56 cm 28 kg/m2 24911.56 g 110 mm[Hg] 67 mm[Hg] Nia Sigala [facility] 4 11:09:24 Date Recorded Body height Body mass index (BMI) Body weight Systolic blood pressure Diastolic blood pressure Provider Name and Address Organization Details Last Updated DateTime 09/29/2024 162.56 cm 26.8 kg/m2 80254.41 g 114 mm[Hg] 79 mm[Hg] [facility] 4 13:23:24 Social History Question Answer Notes LastModified by Organizat ion Details LastModified Time Tobacco Smoking Status Never Smoker Nia Sigala [facility] 03/20/2022 15:13:34 What Is Your Level Of Alcohol Consumption? None Information not available 03/20/2022 Are You Blind Or Do You Have Difficulty Seeing? No Information n ot available 03/20/2022 What Is Your Level Of Caffeine Consumption? Occasional [email or web address] Information not available 04/20/2023 In The 14 Days Before Symptom Onset, Have You Had Close Contact With A Laboratory-confirm ed COVID-19 While That Case Was Ill? No [email or web address] Information n ot available 04/20/2023 In The 14 Days Before Symptom Onset, Have You Had Close Contact With A Person Who Is Under Investigation For COVID-19 While That Person Was Ill? No [email or web address] Information not available 04/20/2023 Have You Been To An Area Known To Be High Risk For COVID-19? No [email or web address] Information not available 04/20/2023 Are You Deaf Or Do You Have Serious Difficulty Hearing? No Information not available 03/20/2022 What Type Of Diet Are You Following? REGULAR Information n ot available 03/20/2022 Do You Use Your Seat Belt Or Car Seat Routinely? Yes [email or web address] Information not available 04/20/2023 Do You Have Smoke And Carbon Monoxide Detectors In Your Home? Yes [email or web address] Information not available 04/20/2023 Do You Feel Stressed (tense, Restless, Nervous, Or Anxious, Or Unable To Sleep At Night)? [id number] [email or web address] Information not available 04/20/2023 Do You Use Any Illicit Or Recreational Drugs? No [email or web address] Information not available 04/20/2023 Do You Use Sunscreen Routinely? Yes [email or web address] Information not available 04/20/2023 Has Tobacco Cessation Counseling Been Provided? No [email or web address] Information not available 04/20/2023 Do You Or Have You Ever Used Any Other Forms Of Tobacco Or Nicotine? No [email or web address] Information not available 04/20/2023 Sex: Unknown Functional Status Question Answer Note LastModified by Organizat ion Details LastModified Time Do you have difficulty walking or climbing stairs? No Information not available 03/20/2022 Are you able to walk? YESWOREST Information not available 03/20/2022 Are you able to care for yourself? Yes Information not available 03/20/2022 Do you have difficulty dressing or bathing? No Information not available 03/20/2022 What is your exercise level? Occasional Information not available 03/20/2022 Mental Status None recorded. Family History Relationship Description Onset Age of this Age Resolved Age Notes LastModified by Organization Details LastModified Time Father No current problems or disability christian rene Not available 04/14/2020 01:20:20 Mother No current problems or disability christian rene Not available 04/14/2020 01:20:20 Medical History Condition Response Allergies (Food, seasonal, environmental ) N Other Y Breast Cancer N Drug/Latex Allergies/Reactions N Blood Transfusion N Dermatologic Disorders N Lung Disease N Defects or Inherited Disease Y Breast Problem N Gestational Diabetes N Hematologic disorders N Anesthesia Complications N History of STI Y Deep Vein Thrombosis N Polycystic ovary syndrome Y Anxiety Disorder N Autoimmune disease N Arthritis N Infertility N Polyps N Acid Reflux (GERD) N History of abnormal pap Y Cancer N Stroke N Varicosities N Neurologic/Epilepsy Y Endometriosis N High Cholesterol N Headaches N Fibromyalgia N Kidney Disease N Heart Problems N Kidney or Bladder Problems N Thyroid Problems N GI Problems N Eating Disorder N Anemia N Art (IVF or FET) N Psychiatric Illness N Ovarian Cancer N Diabetes N Pulmonary (TB, Asthma) N Hepatitis/Liver Disease N No Past Medical History N Eczema N Urinary Tract Infection N Abuse/Domestic Violence N Asthma N Trauma/Violence N Depression/ depression N Heart Disease N Pre-Eclampsia N Hypertension N Osteoporosis N Thrombophilias N Gynecological History Statement/Question Response Abnormal Pap Y Flow Light Date of Last Mammogram Date of LMP 09/08/2024 Was last menstrual period normal Y STIs/STDs Yes HPV Vaccine Y Duration of Flow (days) 3 Current Control Method None Are cycles usually normal Y Frequency of Cycle (Q days) 28 Sexually Active? Y Menses Monthly Y Date of DEXA bone scan Age of first menstrual cycle 14 Date of Last Pap Smear 10/08/2023 Sexual Problems? Y LMP Approximate Obstetrics History GPAL:G 0 P 0 0 0 0 Type Value Living 0 Total 0 Past Encounters Encounter ID Performer Location Encounter Start Date Encounter Closed Date Diagnosis/Indication Diagnosis SNOMED-CT Code Diagnosis ICD10 Code [id number] Kyra WHITNEY Prieto [facility] [address],[facility] [place] [address] 03/20/2022 14:53:17 03/20/2022 16:20:52 Abnormal uterine bleeding 2794109077 9100 N93.9 Sexually t ransmitted infectious disease 1608024 A64 [id number] Becca John [facility] [address],[place] [address] 03/27/2022 14:30:04 03/27/2022 15:06:59 Irregular periods 21254299 N94.10 [id number] Ricky Oh MD [facility] [address],[place] [address] 04/16/2022 15:04:38 04/16/2022 16:50:13 Abnormal uterine bleeding 1359819229 9100 N93.9 Postcoital bleeding 4888 0000 N93.0 Contracept ion care management 841407296 Z30.9 [id number] Kay Delaney [facility] [address],[place] [address] 04/20/2023 12:13:46 05/20/2023 16:35:33 Vaginitis 93918172 N76.0 [id number] Kay Delaney [facility] [address],[place] [address] 05/15/2023 18:27:21 05/31/2023 15:53:36 Pain in pelvis 79666566 R10.2 Venereal d isease screening 376131031 Z11.3 [id number] [facility] [address],[place] [address] 05/20/2023 17:32:44 05/20/2023 18:08:04 Pain in pelvis 79542523 R10.2 [id number] [facility] [address],[place] [address] 07/08/2023 16:24:05 07/08/2023 16:55:49 Amenorrhea 97969399 N91.2 Irregular periods 880164 07 N92.6 Cyst of ovary 64856465 N 83.209 [id number] Tracy Padilla [facility] [address] [place] [address] 07/18/2023 17:29:49 07/19/2023 14:31:42 Irregular periods 13250075 N94.10 [id number] [facility] [address] [place] [address] 08/22/2023 17:15:34 08/22/2023 17:48:32 Exposure to chlamydia 2157134758 104 Z20.2 Irregular periods 894489 07 N92.6 Unprotecte d sexual intercourse 2254913 Z72.51 Venereal d isease screening 057249916 Z11.3 Sexually t ransmitted infectious disease 5306151 A64 Contracept ion care management 727151633 Z30.9 [id number] Kyra Prieto [facility] [address],[place] [address] 10/08/2023 15:06:13 10/08/2023 15:48:08 Irregular periods 63988321 N92.6 Postcoital bleeding 4888 0000 N93.0 Dysuria 34808620 R30.0 Venereal d isease screening 566548437 Z11.3 Screening for malignant neoplasm of cervix 738489375 Z12.4 [id number] [facility] [address],[place] [address] 10/15/2023 15:00:27 10/15/2023 16:21:16 Irregular periods 11825569 N94.10 R10.2 [id number] Kay Delaney [facility] [address],[place] [address] 10/18/2023 13:21:37 10/18/2023 13:59:31 Irregular periods 03080681 N92.6 Contracept ion care management 059278089 Z30.9 [id number] Kay Delaney [facility] [address],[place] [address] 12/19/2023 16:50:36 12/25/2023 16:42:05 Vaginitis 71375995 N76.0 [id number] Kay Delaney [facility] [address],[place] [address] 03/26/2024 14:39:26 03/26/2024 15:26:48 Vaginitis 56551771 N76.0 [id number] Nia Sigala [facility] [address],[place] [address] 07/20/2024 10:58:56 07/20/2024 11:20:56 Venereal disease screening 920433753 Z11.3 [id number] Ricky Oh MD [facility] [address],[place] [address] 09/29/2024 12:32:40 09/30/2024 09:10:54 Vulvovaginitis 44397785 N76.0 Contracept ion care management 076864496 Z30.9 Health Concerns Section Related Observation LastModified by Organization Detai ls LastModified Time None Recorded Concern Status LastModified by Organization Details LastModified Time None Recorded Advance Directives Directive None Recorded Payers Encounter Date Sequence Insurance Name Policy Number Policy Kumar Covered Member ID Kumar Member ID Guarantor Name 10/18/2023 1 [place] (MEDICAID HMO) [id number] 0003 Angela Peterson [id number] 12/19/2023 1 [facility] (MEDICAID HMO) [id number] 0003 Angela Peterson [id number] 03/26/2024 1 [employer] [facility] (MEDICAID HMO) [id number] 0003 Angela Peterson [id number] 07/20/2024 1 [place] (MEDICAID HMO) [id number] 0003 Angela Peterson [id number] 09/29/2024 1 [place] (MEDICAID HMO) [id number] 0003 Angela Peterson [id number] Notes Date Note Type Note Provider Name and Address Organization Details Recorded Time 10/18/2023 text/html Here today to re view US report and discuss help with period regulation. Kay Delaney [facility] [address], [place], [address], [facility] 10/18/2023 13:59:07 12/19/2023 text/html Here today for vaginal d/c, itching, odor.Neg pain of abd/pelvis/flankNeg urinary sx'sNeg GI sx'sNeg N/V/F/C/DNeg Vag d/c, odor, irritation, itchingNeg new sexual partner Kay Delaney [facility] [address], [place], [address], [facility] 12/25/2023 09:28:26 03/26/2024 text/html Vaginal/Vulvar ProblemReported bypatient.Location:v agina Onset/Timing:abrupt Duration:present for 1-7 days Quality:itching; irritation; Discharge/odor Severity:mild Context:sexually active Alleviating Factors:none Aggravating Factors:none Associated Symptoms:no vaginal pain; no vulvar swelling/erythema; no vulvar pain; no vulvar lesions; no pelvic pain; no dyspareunia; no dysuria; no fever; no abdominal pain;vaginal itching;vaginal irritation;vulvar itching/irritation Kay Delaney [facility] [address], [place], [address], [facility] 03/26/2024 15:11:17 09/29/2024 text/html this patient is a 23-year-old female with vulvar irritation and vaginal discharge. Patient reports significant history of BV and yeast. She thinks that she may have both. We agreed to treat for both. She was examined. The vulva and distal vagina appeared normal. Swabs were taken. She was prescribed medication for the treatment of BV and vulvovaginitis. Three medications were sent. They were prescribed. We discussed risks, benefits, and alternatives to each medication. We discussed instructions and precautions. We also discuss contraceptive care management. She would like to restart the NuvaRing. NuvaRing was used historically. She was reminded about instructions and precautions of the NuvaRing. She was given risks, benefits, and alternatives to combined hormonal contraception Ricky Oh MD [address], [place], [address], [facility] 09/29/2024 22:14:27 OBGyn Episode No OBEpisode recorded.
--- OUTSIDE RECORDS SUMMARY | 2024-11-14 19:14 | XMS_ITS | Continuity of Care Document ---
Author Organization [facility] Address [address] [place] [address] Assessment No assessment recorded. Plan of Treatment Reminders Order Date Submit Date Provider Last Modified By Organization Details Last Modified Time Details Appointments U/S OB DATING/ VIABILI TY 2024 11:00A M ULTRASOUND Not available Not available Not available Lab None recorde d. Referral None recorde d. Procedures None recorde d. Surgeries None recorde d. Imaging None recorde d. Medication Orders [facility]luca n 150 mg tablet [id number] [address] [place], [place], [id number], 09/29/2024 13:45:02 clotrim azole-b etameth asone 1 %-0.05 % topical cream [facility], [address] [facility], [place], [place], [id number], 09/29/2024 13:45:05 metroni dazole 500 mg tablet 2023 [facility], [address] [place], [place], [id number], 09/29/2024 13:45:07 NuvaRin g 0.12 mg-0.01 5 mg/24 hr vaginal 2023 024 [place] [facility]74556, [address] [facility], [place], [id number], 09/29/2024 13:46:11 Patient TargetsNo targets recorded. Patient InstructionsNo instructions recorded. Reason for Referral None Reported. Procedures Surgical History Date Name Laterality Status Provider Name and Address Organization Details Recorded Time 10/08/20 23 Date of Last Pap Smear completed [facility] 10/08/2023 16:15:23 09/11/20 21 [facility] 03/20/2022 15:13:46 06/11/20 21 Laparoscopy completed [facility] 04/16/2022 19:46:46 09/17/20 18 laparoscopic excision of cyst of right ovary completed [facility] 04/16/2022 19:44:54 11/11/19 12 procedure on fingernail completed [facility] 04/16/2022 19:45:23 11/11/19 11 tonsillectomy and adenoidectomy completed [facility] 04/16/2022 19:45:36 11/11/19 05 removal of silastic tubes from ear completed [facility] 04/16/2022 19:46:07 11/11/19 04 removal of silastic tubes from ear completed [facility] 04/16/2022 19:46:03 11/11/19 03 removal of silastic tubes from ear completed [facility] 04/16/2022 19:46:00 11/11/19 02 Unlisted px ant segment eye completed [facility] 04/16/2022 19:44:41 11/11/19 02 removal of silastic tubes from ear completed [facility] 04/16/2022 19:45:58 Imaging Results None recorded. Procedure Notes None recorded. Medical Equipment None Reported. Allergies Allergen ID Allergen Name Allergen Category Reaction Reaction Severity Criticality Documentation Date Start Date Code Code System Note Provider Name and Address Organization Details Recorded Time 31913 vancomyci n medicatio n Not available Not available Not available 03/20/2022 34660 RxNorm Nia Sigala [facility] 2 15:11:57 75559 ethinyl estradiol / norelgest romin medicatio n nausea Not available low 10/18/2023 99863 7 RxNorm Kay lopez, [facility]- [address], [place], [address] , , [facility] 3 13:53:24 853 clindamyc in Not available hives Not available Not available 04/14/2020 2582 RxNorm Cee Cai [facility] 0 01:19:48 854 Substance with sulfonami de structure and antibacte rial mechanism of action (substanc e) medicatio n hives Not available Not available 04/14/2020 45272 8003 SNOMED Cee Cai ctedwin [facility] 0 01:20:00 Medications Name Sig Start [...] Prescrib ed Elsewher e: No Locat ion: [facility] odify By: velia mendez DateTime : 09/25/20 03:45:43 PM Not Available Not Available Not Available tramadol 50 mg tablet 09/29 completed Not Available Not Available Not Available Macrobid 100 mg capsule take 1 capsule by oral route every 12 hours with food, as directed 09/22 completed Prescrib ed Elsewher e: No Locat ion: [facility] M odify By: amgladys mendez DateTime : 04/21/20 18 01:45:00 PM [...] DISCARD PATCH WITHIN 12 HOURS OR DIRECTED MY 04/20 completed Not Available Not Available Not Available fluoxetin e 10 mg capsule active Not Available Not Available Not Available amoxicill in 400 mg/5 mL oral suspensio n take 6.25 millilit er by oral route every 8 hours 04/21 completed Prescrib ed Rodney e: Yes Loca tion: [facility] odify By: amgladys [facility] [email or web address] DateTime : 01/01/20 17 02:30:00 PM Not [...] Elsewher e: No Locat ion: [facility] odify By: velia mendez DateTime : 04/23/20 [...] Elsewher e: No Locat ion: [facility] odify By: ejff dougherty DateTime : 10/15/20 18 09:15:13 AM Not Available Not Available Not Available ParaGard T 380A 380 square mm intrauter ine device 10/07 completed Prescrib ed Elsewher e: Yes Loca tion: [facility] odify By: velia mendez DateTime : 04/21/20 [...] Elsewher e: No Locat ion: [facility] odify By: katerin ospina DateTime : 10/13/20 18 03:08:36 PM Not Available Not Available Not Available azithromy alejandra 500 mg tablet TAKE 2 TABLETS BY MOUTH TODAY 03/20 completed Not Available Not Available Not Available Lor 0.35 mg tablet take 1 tablet by oral route every day 10/07 completed Prescrib ed Elsewher e: No Locat ion: [facility] odify By: [email or web address] mannuntbhavesh DateTime : 04/21/20 18 01:45:00 PM Not Available Not Available Not Available cyclobenz aprine 5 mg tablet 04/20 completed Not Available Not Available Not Available Paula 14 mcg/24 hr (up to 3 years) 13.5 mg intrauter ine device 02/10 completed Prescrib ed Elsewher e: Yes Loca tion: [facility] odify By: katerin ospina DateTime : 11/18/19 19 03:00:00 PM Not Available Not Available Not Available Suprax 400 mg capsule take 1 capsule by oral route every day 01/16 completed Prescrib ed Elsewher e: No [facility] odify By: smcerinny Jose M dougherty DateTime : 10/13/20 18 03:09:37 PM [...] Updated DateTime 09/29/2024 162.56 cm 26.8 kg/m2 07305.41 g 114 mm[Hg] 79 mm[Hg] Veronica Bond [facility] 13:23:24 Social History Question Answer Notes LastModified by Organizat ion Details LastModified Time Tobacco Smoking Status Never Smoker Nia Sigala kj, [facility] 03/20/2022 15:13:34 What Is Your Level Of Alcohol Consumption? None Information not available 03/20/2022 Are You Blind Or Do You Have Difficulty Seeing? No Information n ot available 03/20/2022 What Is Your Level Of Caffeine Consumption? Occasional [email or web address] Information not available 04/20/2023 In The 14 Days Before Symptom Onset, Have You Had Close Contact With A Laboratory-confirm ed COVID-19 While That Case Was Ill? No [email or web address] Information n ot available 04/20/2023 In The 14 Days Before Symptom Onset, Have You Had Close Contact With A Person Who Is Under Investigation For COVID-19 While That Person Was Ill? No [email or web address] Information not available 04/20/2023 Have You Been To An Area Known To Be High Risk For COVID-19? No Information not available 04/20/2023 Are You Deaf Or Do You Have Serious Difficulty Hearing? No Information not available 03/20/2022 What Type Of Diet Are You Following? REGULAR Information n ot available 03/20/2022 Do You Use Your Seat Belt Or Car Seat Routinely? Yes [email or web address] Information not available 04/20/2023 Do You Have Smoke And Carbon Monoxide Detectors In Your Home? Yes [email or web address] Information not available 04/20/2023 Do You Feel Stressed (tense, Restless, Nervous, Or Anxious, Or Unable To Sleep At Night)? [id number] [email or web address] Information not available 04/20/2023 Do You Use Any Illicit Or Recreational Drugs? No [email or web address] Information not available 04/20/2023 Do You Use Sunscreen Routinely? Yes [email or web address] Information not available 04/20/2023 Has Tobacco Cessation Counseling Been Provided? No [email or web address] Information not available 04/20/2023 Do You Or Have You Ever Used Any Other Forms Of Tobacco Or Nicotine? No [email or web address] Information not available 04/20/2023 Sex: Unknown Functional [...] 01:20:20 Mother No current problems or disability [email or web address] l Not available 04/14/2020 01:20:20 Medical History Condition Response Allergies (Food, seasonal, environmental ) N Other Y Blood Transfusion N Drug/Latex Allergies/Reactions N Breast Cancer N Dermatologic Disorders N Lung Disease N [...] Diagnosis/Indication Diagnosis SNOMED-CT Code Diagnosis ICD10 Code [id number] Ricky Oh MD [place] [address] [address] 09/29/2024 12:32:40 09/30/2024 09:10:54 Vulvovaginitis 51958237 N76.0 Contracept ion care management 218572231 Z30.9 Health Concerns Section Related Observation LastModified by Organization Detai ls LastModified Time None Recorded Concern Status LastModified by Organization Details LastModified Time None Recorded Payers Encounter Date Sequence Insurance Name Policy Number Policy Kumar Covered Member ID Kumar Member ID Guarantor Name 09/29/2024 1 [facility] (MEDICAID HMO) [id number] Angela Peterson [id number] Notes Date Note Type Note Provider Name and Address Organization Details Recorded Time 09/29/2024 text/html this patient is a 23-year-old [...] combined hormonal contraception Ricky Oh MD [address], [place], [address], [facility] 09/29/2024 22:14:27 OBGyn Episode No OBEpisode recorded.
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
--- OUTSIDE RECORDS SUMMARY | 2024-11-14 19:15 | XMS_ITS | Encounter Summary ---
Author Organization [facility] Address [address] [place] [address] Care Team Providers Care Ceo Ziff Davis Name Role Phone Katie Kellogg MD Primary Care Provider [phone] Reason for Visit * Reason Comments Injury Wrist right wrist fx Encounter Details Date Type Department Care Team (Latest Contact Info) Description 04/20/2014 10:00 AM CDT - 04/20/2014 11:59 PM CDT Hospital Encounter [facility] - Orthopedics [address] [facility] [place] [address] Bobby Wren PA-C [facility] [place] [address] Discharge Disposition: Home or Self Care Social History Tobacco Use Types Packs/Day Years Used Date Smoking Tobacco: Never Assessed Sex and Gender Information Value Date Recorded Sex Assigned at Not on file Gender Identity Not on file Sexual Orientation Not on file documented as of this encounter Discharge Instructions * Patient Instructions* Bobby Wren PA-C - 04/20/2014 10:45 AM CDT ORTHOPAEDIC CLINIC DISCHARGE INSTRUCTIONS SHEET Follow Up: As needed only Wear splint for 2 weeks. May remove for swimming and bathing. No sports, playground equipment, etc for 2 weeks. May resume PE, sports, and all activities as tolerated in 2 weeks. School excuse: 04/20/2014 Tylenol and Ibuprofen (over the counter medication) may be used per instructions. If you have any questions or concerns in the interim, or if you need to schedule surgery for your child, you may contact our orthopedic office at . If you need to make a clinic appointment, please call . documented in this encounter Progress Notes * Bobby Wren PA-C - 04/20/2014 10:45 AM CDT PEDIATRIC ORTHOPAEDIC CLINIC NOTE NAME: Angela Peterson DATE OF SERVICE: 04/20/2014 DATE: 2000 PCP: Katie Kellogg HISTORY: Angela Peterson is a 13 y.o. 4 m.o. female who presents 3.5 week(s) status post a right distal radius fracture. Angela Peterson was treated with a short arm cast and presents for follow up evaluation. The patient rates her pain as a 0 out of 10. The patient denies new onset of numbness in her upper extremities. MEDICATIONS: None ALLERGIES: Allergies as of 04/20/2014 - Complete 04/20/2014 Allergen Reaction Noted ??? Clindamycin Urticaria 03/27/2011 ??? Sulfa drugs Urticaria 03/27/2011 IMMUNIZATIONS: Immunization status: stated as current, but no records available. PHYSICAL EXAMINATION: General appearance: alert, cooperative, no distress. She has good head control. No rashes or abnormal dyspigmentation Extremities: The uninjured left upper extremity was examined and demonstrated normal skin, normal range of motion and alignment of all joint, normal motor, sensory and vascular examination, and was without pain. It was used for comparison when examining the injured right upper extremity. General appearance: no acute distress The examination was performed out of splint/cast Skin: normal Swelling: none Tenderness: minimal at distal radius. Deformity: No ROM: normal, full and equal bilaterally--mild soreness with full wrist flexion/extension Gait: normal Neurological Exam: normal Vascular Exam: normal RADIOGRAPHS: None today ASSESSMENT: 1. Distal radius fracture, right PLAN: We reassured the family that she is doing well clinically. She came out of her cast today, and was given a velcro splint to wear for the next 2 weeks. Fracture precautions were reviewed today. The patient will stay out of PE/sports for 2 more weeks. After that, she may discontinue the splint and she may gradually resume all activities as tolerated. If she has any difficulties returning to activities, or any pain/problems in 3-4 weeks, we recommend they return to clinic. If she is doing well at that point, they do not need to follow up for this injury. The family was understanding of this plan and will follow up PRN. * Silvia Wong - 04/20/2014 10:36 AM CDT Removed SAC right. Skin dry and intact. documented in this encounter Miscellaneous Notes * Miscellaneous Scans - Document, Scanned - 04/27/2014 6:43 PM CDT documented in this encounter Plan of Treatment Not on file documented as of this encounter Visit Diagnoses Diagnosis Distal radius fracture, right- Primary documented in this encounter Care Teams Ceo Ziff Davis Relationship Specialty Start Date End Date Katie Kellogg MD [address] [place] [address] PCP - General Pediatrics 04/16/14 01/14/17 documented as of this encounter
--- OUTSIDE RECORDS SUMMARY | 2024-11-14 19:15 | XMS_ITS | Encounter Summary ---
Author Organization [facility] Address [address] [place] [address]. [place] [address] [place] [address] Care Team Providers Care Cardiology Specialist Name Role Phone Jovanny Suazo MD Primary Care Provider [phone] Reason for Referral * Imaging (Urgent) - New Request Specialty Diagnoses / Procedures Referred By Contac t Referred To Contact RADIOLOGY Procedures CT ABD+PEL W CON Felicita Lo MD [address] [place] [id number] Phone: tel: fax: Referral ID Status Reason Start Date Expiration Date V isits Requested Visits Authorized [id number] New Request 03/21/2024 03/21/2025 1 1 Reason for Visit * Reason Comments Abdominal Pain Encounter Details Date Type Department Care Team (Late st Contact Info) Description 03/21/2024 4:26 PM CDT - 03/21/2024 8:27 PM CDT Emergency [facility] Emergency Room [address] [place] [address] Felicita Lo MD [address] [place] [id number] Negrito Yun, [address] [place] [address] Abdominal Pain Discharge Disposition: Home or Self Care (Routine Discharge) Social History Tobacco Use Types Packs/Day Years Used Date Smoking Tobacco: Never Smokeless Tobacco: Never Alcohol Use Standard Drinks/Week Comments Not Currently 0 (1 standard drink = 0.6 oz pur e alcohol) once ever few months PHQ-2 Answer Date Recorded PHQ-2 Score - If the patient scores above 3, please move on to questions 3-9 1 10/08/2022 Comments No Sex and Gender Information Value Date Recorded Sex Assigned at Not on file Legal Sex Female 7:16 PM CDT Gender Identity Not on file Sexual Orientation Not on file documented as of this encounter Last Filed Vital Signs Vital Sign Reading Time Taken Comments Blood Pressure 125/80 03/21/2024 8:10 PM CDT Pulse 85 03/21/2024 8:10 PM CDT Temperature 36.8 ??C (98.2 ??F) 03/21/2024 8:10 PM CD T Respiratory Rate 18 03/21/2024 8:10 PM CDT Oxygen Saturation 97% 03/21/2024 8:10 PM CDT Inhaled Oxygen Concentration - - Weight 76.7 kg (169 lb) 03/21/2024 4:33 PM CDT Height 161.3 cm (5' 3.5 ) 03/21/2024 4:33 PM CDT Body Mass Index 29.47 03/21/2024 4:33 PM CDT documented in this encounter Functional Status * RETIRED Are you deaf or do you have serious difficulty hearing Answer Date of Assessment Author Status No 01/26/2022 3:52 AM CDT Activ e * RETIRED Are you blind or do you have serious difficulty seeing, even when wearing glasses? Answer Date of Assessment Author Status No 01/26/2022 3:52 AM CDT Activ e * Do you have serious difficulty walking or climbing stairs? Answer Date of Assessment Author Status No 01/26/2022 3:52 AM CDT Taylor Lo R N Active * Do you have difficulty dressing or bathing? Answer Date of Assessment Author Status No 01/26/2022 3:52 AM CDT Taylor Lo R N Active * Because of a physical, mental, or emotional condition, do you have difficulty doing errands alone such as visiting a doctor's office or shopping? Answer Date of Assessment Author Status No 01/26/2022 3:52 AM CDT Taylor Lo R N Active documented as of this encounter Mental Status * Because of a physical, mental, or emotional condition, do you have serious difficulty concentrating, remembering, or making decisions? Answer Entry Date Author Status No 01/26/2022 3:52 AM CDT Taylor Lo R N Active documented in this encounter Discharge Instructions * Discharge Instructions* Negrito Yun DO - 03/21/2024 8:12 PM CDT 1. Can alternate Toradol and Tylenol as needed for pain and discomfort * Attachments The following attachments cannot be sent through Care Everywhere. * Ovarian Cyst Discharge Instructions (Lithuanian) documented in this encounter Medications at Time of Discharge ketorolac (TORADOL) 10 MG tablet Take 1 tablet (10 mg total) by mouth every 6 (six) hours as needed. 20 tablet 03/21/2024 03/26/2024 documented as of this encounter ED Notes * Negrito Yun DO - 03/21/2024 8:11 PM CDT 7:00PM - assumed care from Dr. Lo, pending CT results 7:50PM -I evaluated patient at bedside. This is a 23-year-old female who presents emergency department for lower abdominal pain. Patient states pain is improved at this time. 8:03PM - discussed case with [facility] Labs Reviewed CBC W/DIFF AUTOMATED - Abnormal; Notable for the following components: Result Value RBC 4.37 (*) MPV 12.9 (*) NEUTROPHILS 73.6 (*) All other components within normal limits COMPREHENSIVE METABOLIC PANEL - Abnormal; Notable for the following components: GLUCOSE 104 (*) AST 10 (*) All other components within normal limits URINALYSIS WI REFLEX TO CULTURE - Abnormal; Notable for the following components: LEUKOCYTES (U) TRACE (*) All other components within normal limits LIPASE HCG QUANT (SERUM)-CHORIONIC GONADOTROPIN CHLAMYDIA GC RNA CULTURE URINE CT ABD+PEL W CON Final Result by User, [id number] (03/21 1854) EXAM: CT ABD+PEL W CON DATE: 03/21/2024 COMPARISON: None INDICATION: Pelvic pain TECHNIQUE: Postcontrast imaging with 75 cc intravenous Isovue-370 right arm A dose lowering technique was used for this procedure, which may include, but is not limited to, dose reduction technique, automated exposure control, iterative reconstruction, ALARA (As Low As Reasonably Achievable), or Image Gently techniques. FINDINGS: The lungs are clear. Normal enhancement of the liver, spleen, adrenal glands, and pancreas. Normal gallbladder. Normal kidney enhancement. No obstruction. There is a tiny bubble of gas within the lumen of the urinary bladder anteriorly and superiorly. Uncertain significance. No wall thickening of this partially distended structure. There is a uniform thickness and uniform soft tissue density band extending from the anterior-superior corner of the urinary bladder toward the umbilicus. Probable urachal remnant which does not appear patent. Mildly retroverted uterus. Uniform uterine enhancement. Small follicles in the right ovary. On the left side, there is a low-density finding measuring about 3 cm. Mild undulating wall enhancement. Moderate amount of mildly heterogeneous free fluid. Most of the density measurements are that of water and some areas are slightly higher. Findings probably represent rupture of a left-sided cyst. There are some mild ill-defined densities in the anterolateral left pelvic wall fat. Stomach is moderately distended with food and has a normal appearance. Normal small bowel. The cecum is deep in the pelvis as normal variation. Ileocecal valve region is well visualized on coronal image 21. Moderate distention of the terminal ileum is a nonspecific finding possibly due to peristalsis. There is no wall thickening or evidence of bowel obstruction. The appendix is poorly seen. It is best visualized on the coronal images. There are some mild nonspecific intraluminal fluid within a portion of this structure. The greatest diameter is about [address] evidence of appendicitis. Mild lumbar levoscoliosis. Disc bulge at L5-S1. IMPRESSION: 1. Small bubble of intraluminal gas in the urinary bladder. 2. Reduced detail with multiple anatomic structures deep in the pelvis. Free fluid and left adnexal appearance could be related to a ruptured corpus luteum cyst. Referred By: Interpreted By: Shahid Nguyen MD, 03/21/2024 6:32 PM Vitals: 03/21/242009 BP: 125/80 Pulse: 85 Resp: 18 Temp: 98.2 ??F (36.8 ??C) SpO2: 97% MDM: Patient presented with lower abdominal pain. Patient stable vitals. No significant abnormalities with blood work. CT scan concerning for ruptured ovarian cyst. Pain under control in the emergency department. No need for hospitalization for pain management at this time. Patient states she is okay to go home. Will discharge patient with prescription for Toradol. Counseled patient to follow-up with her [facility] in [place] in a week. Diagnosis: 1. Ruptured ovarian cyst Disposition: discharge DO Negrito SNEED DO 03/22/24 0035 * Felicita Lo MD - 03/21/2024 4:42 PM CDT Chief Complaint Chief Complaint Patient presents with Abdominal Pain History of Present Illness Patient is a 23-year-old female with a history of depression, ovarian cyst status post resection, presenting for abdominal pain. Onset about 3:00. She was just having vaginal sexual intercourse with her boyfriend and was not having pain at the time. About 10 to 15 seconds afterwards she started having severe stabbing pain in her vaginal region. Pain has been constant and it radiates to her left lower quadrant. Feels similar to when she has had cyst ruptures before. The stabbing pain comes and goes but there is constant pain. No falls or injuries. No vaginal bleeding or discharge. She does notthink she could be . No fevers, chills, vomiting. She has been nauseous she thinks due to the pain. No diarrhea or blood in her school stool. No dysuria or hematuria. No other complaints at this time. Medical History ALLERGIES: Review of patient's allergies indicates: Allergen Reactions Sulfa Antibiotics Hives Vancomycin Infusion Reaction Fever, chills Clindamycin Hives MEDICATIONS: Prior to Admission medications Not on File PAST MEDICAL HISTORY: Past Medical History: Diagnosis Date Depression 2017 Misophonia 2014 PAST SURGICAL HISTORY: Past Surgical History: Procedure Laterality Date ABDOMINAL SURGERY cyst on ovary, pt. not sure whick side. aug 2018 CLOSED RX NOSE FRACTURE 09/2021 EYE SURGERY FRACTURE SURGERY right 5th finger TONSILLECTOMY FAMILY HISTORY: Family History Problem Relation Name Age of Onset Thyroid Disease Mother Hypertension Father SOCIAL HISTORY: Social History Tobacco Use Smoking status: Never Smokeless tobacco: Never Vaping Use Vaping status: Never Used Substance Use Topics Alcohol use: Not Currently Comment: once ever few months Drug use: Yes Frequency: 1.0 times per week Types: Marijuana Review of Systems Review of Systems Constitutional: Negative for chills and fever. HENT: Negative for congestion and rhinorrhea. Respiratory: Negative for cough and shortness of breath. Gastrointestinal: Positive for abdominal pain and nausea. Negative for blood in stool, constipation, diarrhea and vomiting. Genitourinary: Positive for difficulty urinating and vaginal pain. Negative for dysuria, hematuria,menstrual problem, vaginal bleeding and vaginal discharge. Skin: Negative for rash and wound. Neurological: Negative for dizziness and light-headedness. Physical Exam Filed Vitals: 03/21/24 1633 BP: 138/80 Pulse: 90 Resp: 20 Temp: 98.1 ??F (36.7 ??C) TempSrc: Oral SpO2: 98% Weight: 76.7 kg (169 lb) Height: 1.613 m (5' 3.5 ) Physical Exam Vitals and nursing note reviewed. Constitutional: General: She is not in acute distress. Appearance: Normal appearance. HENT: Head: Normocephalic and atraumatic. Cardiovascular: Rate and Rhythm: Normal rate and regular rhythm. Pulmonary: Effort: Pulmonary effort is normal. Breath sounds: Normal breath sounds. Abdominal: General: Abdomen is flat. There is no distension. Palpations: Abdomen is soft. Tenderness: There is abdominal tenderness. There is no guarding or rebound. Comments: Diffusely tender to abdominal palpation Skin: General: Skin is warm and dry. Neurological: General: No focal deficit present. Mental Status: She is alert and oriented to person, place, and time. Psychiatric: Mood and Affect: Mood normal. Behavior: Behavior normal. Diagnostic Studies / Procedures ELECTROCARDIOGRAMS: No results found for this visit on 03/21/24. LABORATORY STUDIES: Results for orders placed or performed during the hospital encounter of 03/21/24 CBC W/DIFF AUTOMATED Result Value Ref Range WBC 7.28 4.4 - 11.0 x10'3/uL RBC 4.37 (L) 4.50 - 5.10 x10'6/uL HGB 12.7 12.3 - 15.3 G/DL HCT 38.7 35.9 - 44.6 % MCV 88.6 80.0 - 96.0 FL MCH 29.1 25.3 - 30.9 PG MCHC 32.8 31.0 - 34.1 G/DL RDW 13.1 12.4 - 15.1 % PLT 158 151 - 353 x10'3/uL MPV 12.9 (H) 9.6 - 12.0 FL RBC MORPHOLOGY NORMAL PLT MORPH. NORMAL WBC MORPHOLOGY NORMAL LYMPHOCYTES 19.4 15.8 - 45.0 % NEUTROPHILS 73.6 (H) 42.1 - 71.9 % MONOCYTES 6.3 5.7 - 12.5 % EOSINOPHILS 0.1 0.0 - 5.6 % BASOPHILS 0.3 0.0 - 1.3 % ABS. NEUTROPHILS 5.36 1.40 - 6.00 x10'3/uL IMMATURE GRANS 0.3 0.0 - 0.5 % ABS. LYMPHOCYTES 1.41 0.80 - 4.70 x10'3/uL COMPREHENSIVE METABOLIC PANEL Result Value Ref Range GLUCOSE 104 (H) 70 - 99 MG/DL BUN 15 7 - 18 MG/DL CREATININE S/P/B 0.68 0.55 - 1.02 MG/DL SODIUM S/P/B 138 136 - 145 MMOL/L POTASSIUM S/P/B 3.5 3.5 - 5.1 MMOL/L CHLORIDE S/P/B 103 100 - 108 MMOL/L CO2 25.4 21 - 32 MMOL/L CALCIUM S/P/B 8.7 8.5 - 10.1 MG/DL BILIRUBIN TOTAL S/P/B 0.4 0.2 - 1.2 MG/DL TOTAL PROTEIN S/P/B 6.9 6.4 - 8.2 G/DL ALBUMIN S/P/B 3.9 3.4 - 5.0 G/DL AST 10 (L) 15 - 37 U/L ALT 17 14 - 55 U/L ALKALINE PHOSPHATASE S/P/B 58 50 - 136 U/L ANION GAP 9.6 5 - 15 MMOL/L BUN CREATININE RATIO 22.1 6 - 26 A/G RATIO 1.3 1.0 - 2.0 RATIO GFR ESTIMATE >90 >90 ML/MIN/1.73 M2 LIPASE Result Value Ref Range LIPASE 24 16 - 77 UNITS/L URINALYSIS WI REFLEX TO CULTURE Specimen: URINE, CLEAN CATCH Result Value Ref Range COLOR (U) YELLOW TRANSPARENCY HAZY SPECIFIC GRAVITY (U) 1.015 1.000 - 1.030 U PH 8.5 5.0 - 9.0 LEUKOCYTES (U) TRACE (A) NEGATIVE NITRITES NEGATIVE NEGATIVE PROTEIN RANDOM (U) NEGATIVE NEGATIVE GLUCOSE (U) NEGATIVE NEGATIVE KETONES (U) NEGATIVE NEGATIVE BILIRUBIN (U) NEGATIVE NEGATIVE BLOOD (U) NEGATIVE NEGATIVE WBC/HPF 0-5 0 - 5 /HPF RBC/HPF NONE SEEN 0 - 5 /HPF EPI/HPF FEW /HPF CULTURE & SENSITIVITY INDICATED? SPECIMEN SETUP FOR CULTURE CRYSTALS (U) MODERATE /HPF BACTERIA (U) FEW /HPF Quantitative HCG Result Value Ref Range HCG QUANTITATIVE <1 0 - 6 MIU/ML IMAGING STUDIES CT ABD+PEL W CON Final Result by User, [id number] (03/21 1854) EXAM: CT ABD+PEL W CON DATE: 03/21/2024 COMPARISON: None INDICATION: Pelvic pain TECHNIQUE: Postcontrast imaging with 75 cc intravenous Isovue-370 right arm A dose lowering technique was used for this procedure, which may include, but is not limited to, dose reduction technique, automated exposure control, iterative reconstruction, ALARA (As Low As Reasonably Achievable), or Image Gently techniques. FINDINGS: The lungs are clear. Normal enhancement of the liver, spleen, adrenal glands, and pancreas. Normal gallbladder. Normal kidney enhancement. No obstruction. There is a tiny bubble of gas within the lumen of the urinary bladder anteriorly and superiorly. Uncertain significance. No wall thickening of this partially distended structure. There is a uniform thickness and uniform soft tissue density band extending from the anterior-superior corner of the urinary bladder toward the umbilicus. Probable urachal remnant which does not appear patent. Mildly retroverted uterus. Uniform uterine enhancement. Small follicles in the right ovary. On the left side, there is a low-density finding measuring about 3 cm. Mild undulating wall enhancement. Moderate amount of mildly heterogeneous free fluid. Most of the density measurements are that of water and some areas are slightly higher. Findings probably represent rupture of a left-sided cyst. There are some mild ill-defined densities in the anterolateral left pelvic wall fat. Stomach is moderately distended with food and has a normal appearance. Normal small bowel. The cecum is deep in the pelvis as normal variation. Ileocecal valve region is well visualized on coronal image 21. Moderate distention of the terminal ileum is a nonspecific finding possibly due to peristalsis. There is no wall thickening or evidence of bowel obstruction. The appendix is poorly seen. It is best visualized on the coronal images. There are some mild nonspecific intraluminal fluid within a portion of this structure. The greatest diameter is about [address] evidence of appendicitis. Mild lumbar levoscoliosis. Disc bulge at L5-S1. IMPRESSION: 1. Small bubble of intraluminal gas in the urinary bladder. 2. Reduced detail with multiple anatomic structures deep in the pelvis. Free fluid and left adnexal appearance could be related to a ruptured corpus luteum cyst. Referred By: Interpreted By: Shahid Nguyen MD, 03/21/2024 6:32 PM ED Course / Medical Decision Making 23-year-old female presenting with abdominal and pelvic pain as described above. Hemodynamically stable on arrival, tearful due to the pain. Will obtain CT scan of abdomen pelvis looking for intra-abdominal pathology, CBC for infection anemia, CMP for renal hepatic metabolic derangement, UA for infection, she would like urine GC and chlamydia sent off as well. She is not sure if she can tolerate a pelvic exam will treat with pain medicines and reevaluate she is agreeable. Obtain lipase for pancreatitis. Treating with IV fluids, pain and nausea medications. Answered all questions and she agrees. Medical Decision Making ED Course as of 03/21/241958 Sat March 21, 2024 1849 Performed pelvic w/ assistance of RN, creamy discharge, patient had significant pain, unable to see cervic, no lacerations. While in the room without her boyfriend, she denies any concerns of abuse or trauma [JS] 190 Consulted visitor services information assistant for recommendations [JS] 1914 S/o pending visitor services information assistant recs to discharge [JS] ED Course User Index [JS] Felicita Lo MD Clinical Impression None 1944 Dr. Vivar recommends transfer for pain control and possible laparoscopy. Forwarded to oncoming provider. Disposition: Discharge Felicita Lo MD 03/21/241958 * Myah Dumont RN - 03/21/2024 4:35 PM CDT Patient was having intercourse today around 3pm when she got severe abdominal pain. The pain was steady for about 20 minutes and now it is intermittent and has some spasm. She has a history of cysts on her ovaries that burst. She has had them surgically removed in the past. documented in this encounter Plan of Treatment Not on file documented as of this encounter Procedures Procedure Name Priority Date/Time Associated Diagnosis Comments CT ABD+PEL W CON STAT 03/21/2024 6:03 PM CDT CHLAMYDIA GC RNA STAT 03/21/2024 5:53 PM CDT COMPREHENSIVE METABOLIC PANEL STAT 03/21/2024 5:17 PM CDT HCG QUANT (SERUM)-CHORIONIC GONADOTROPIN STAT 03/21/2024 5:17 PM CDT CBC W/DIFF AUTOMATED STAT 03/21/2024 5:17 PM CDT LIPASE STAT 03/21/2024 5:17 PM CDT URINALYSIS WI REFLEX TO CULTURE STAT 03/21/2024 4:50 PM CDT URINE BACTERIA CULTURE Routine 4:50 PM CDT documented in this encounter Results * CT ABD+PEL W CON (03/21/2024 6:03 PM CDT) Anatomical Region Laterality Modality Abdomen Computed Tomogra phy 03/21/2024 6:32 PM CDT Impressions 03/21/2024 6:48 PM CDT IMPRESSION: 1. ??Small bubble of intraluminal gas in the urinary bladder. 2. ??Reduced detail with multiple anatomic structures deep in the pelvis. ??Free fluid and left adnexal appearance could be related to a ruptured corpus luteum cyst. Referred By: ?? Interpreted By: Shahid Nguyen MD, 03/21/2024 6:32 PM Narrative 03/21/2024 6:48 PM CDT EXAM: CT ABD+PEL W CON DATE: 03/21/2024 COMPARISON: None INDICATION: Pelvic pain TECHNIQUE: Postcontrast imaging with 75 cc intravenous Isovue-370 right arm A dose lowering technique was used for this procedure, which may include, but is not limited to, dose reduction technique, automated exposure control, iterative reconstruction, ALARA (As Low As Reasonably Achievable), or Image Gently techniques. FINDINGS: The lungs are clear. ??Normal enhancement of the liver, spleen, adrenal glands, and pancreas. ??Normal gallbladder. Normal kidney enhancement. ??No obstruction. ??There is a tiny bubble of gas within the lumen of the urinary bladder anteriorly and superiorly. ??Uncertain significance. ??No wall thickening of this partially distended structure. ??There is a uniform thickness and uniform soft tissue density band extending from the anterior- superior corner of the urinary bladder toward the umbilicus. ??Probable urachal remnant which does not appear patent. Mildly retroverted uterus. ??Uniform uterine enhancement. ??Small follicles in the right ovary. ??On the left side, there is a low-density finding measuring about 3 cm. ??Mild undulating wall enhancement. ??Moderate amount of mildly heterogeneous free fluid. ??Most of the density measurements are that of water and some areas are slightly higher. ??Findings probably represent rupture of a left-sided cyst. ??There are some mild ill-defined densities in the anterolateral left pelvic wall fat. Stomach is moderately distended with food and has a normal appearance. ??Normal small bowel. The cecum is deep in the pelvis as normal variation. ??Ileocecal valve region is well visualized on coronal image 21. ??Moderate distention of the terminal ileum is a nonspecific finding possibly due to peristalsis. ??There is no wall thickening or evidence of bowel obstruction. The appendix is poorly seen. ??It is best visualized on the coronal images. ??There are some mild nonspecific intraluminal fluid within a portion of this structure. ??The greatest diameter is about 5 mm. ??No convincing CT evidence of appendicitis. Mild lumbar levoscoliosis. ??Disc bulge at L5-S1. Procedure Note Shahid Nguyen MD - 03/21/2024 EXAM: CT ABD+PEL W CON DATE: 03/21/2024 COMPARISON: None INDICATION: Pelvic pain TECHNIQUE: Postcontrast imaging with 75 cc intravenous Isovue-370 rightarm A dose lowering technique was used for this procedure, which may include,but is not limited to, dose reduction technique, automated exposurecontrol, iterative reconstruction, ALARA (As Low As ReasonablyAchievable), or Image Gently techniques. FINDINGS: The lungs are clear. Normal enhancement of the liver, spleen,adrenal glands, and pancreas. Normal gallbladder. Normal kidney enhancement. No obstruction. There is a tiny bubble of gaswithin the lumen of the urinary bladder anteriorly and superiorly.Uncertain significance. No wall thickening of this partially distendedstructure. There is a uniform thickness and uniform soft tissue densityband extending from the anterior-superior corner of the urinary bladdertoward the umbilicus. Probable urachal remnant which does not appearpatent. Mildly retroverted uterus. Uniform uterine enhancement. Small folliclesin the right ovary. On the left side, there is a low-density findingmeasuring about 3 cm. Mild undulating wall enhancement. Moderate amountof mildly heterogeneous free fluid. Most of the density measurements arethat of water and some areas are slightly higher. Findings probablyrepresent rupture of a left-sided cyst. There are some mild ill-defineddensities in the anterolateral left pelvic wall fat. Stomach is moderately distended with food and has a normal appearance.Normal small bowel. The cecum is deep in the pelvis as normal variation. Ileocecal valveregion is well visualized on coronal image 21. Moderate distention of theterminal ileum is a nonspecific finding possibly due to peristalsis.There is no wall thickening or evidence of bowel obstruction. The appendix is poorly seen. It is best visualized on the coronal images.There are some mild nonspecific intraluminal fluid within a portion ofthis structure. The greatest diameter is about 5 mm. No convincing CTevidence of appendicitis. Mild lumbar levoscoliosis. Disc bulge at L5-S1. IMPRESSION: 1. Small bubble of intraluminal gas in the urinary bladder. 2. Reduced detail with multiple anatomic structures deep in the pelvis.Free fluid and left adnexal appearance could be related to a rupturedcorpus luteum cyst. Referred By: Interpreted By: Shahid Nguyen MD, 03/21/2024 6:32 PM Felicita Lo MD CT Final Result * CHLAMYDIA GC RNA (03/21/2024 5:53 PM CDT) SPECIMEN SOURCE URINE 5:46 PM CDT [facility] CHLAMYDIA PCR NEGATIVE NEGATIVE 03/23/2024 11:45 PM CDT [facility] Comment:PERFORMED BY NUCLEIC ACID AMPLIFICATION N.GONORRHOEAE RNA TMA NEGATIVE NEGATIVE 03/23/2024 11:45 PM CDT [facility] Comment:PERFORMED BY NUCLEIC ACID AMPLIFICATION URINE SPECIMEN / Unknown 03/21/2024 5:53 PM CDT us Felicita Lo MD MICROBIOLOGY - GENERAL ORDER ABBEY Final Result [facility] [address] [place] [address], [place] [phone] [facility] [address] [place] [address], [place] [phone] * Quantitative HCG (03/21/2024 5:17 PM CDT) HCG QUANTITATIVE <1 0 - 6 MIU/ML 03/21/2024 5:45 PM CDT [facility] Comment: WEEKS OF ? REFERENCE RANGES NON- FEMALE ?0-6 ? 0.2 - 1 ? 5 - 50 ? 1 - 2 ? 50 - 500 ? 2 - 3 ? 100 - 5000 ? 3 - 4 ? 500 - 10,000 ? 4 - 5 ? 1000 - 50,000 ? 5 - 6 ? 10,000 - 100,000 ? 6 - 8 ? 15,000 - 200,000 ? 2 - 3 MONTHS ?10,000 - 100,000 03/21/2024 5:17 PM CDT Felicita Lo MD LABORATORY Final Result Performing Organization Address [facility] de Phone Number [facility] [address] [place] [address], [place] [phone] * LIPASE (03/21/2024 5:17 PM CDT) Pathologist [facility] LIPASE 24 16 - 77 UNITS/L 03/21/2024 5:45 PM CDT [facility] 03/21/2024 5:17 PM CDT Felicita Lo MD LABORATORY Final Result Performing Organization Address [facility] de Phone Number [facility] [address] [place] [address], [place] [phone] * (ABNORMAL) COMPREHENSIVE METABOLIC PANEL (03/21/2024 5:17 PM CDT) Pathologist [facility] GLUCOSE 104(H) 70 - 99 MG/DL 03/21/2024 5:45 PM CDT [facility] BUN 15 7 - 18 MG/DL 03/21/2024 5:45 PM CDT [facility] CREATININE S/P/B 0.68 0.55 - 1.02 MG/DL 03/21/2024 5:45 PM T [facility] SODIUM S/P/B 138 136 - 145 MMOL/L 03/21/2024 5:45 PM T [facility] POTASSIUM S/P/B 3.5 3.5 - 5.1 MMOL/L 03/21/2024 5:45 PM T [facility] CHLORIDE S/P/B 103 100 - 108 MMOL/L 03/21/2024 5:45 PM T [facility] CO2 25.4 21 - 32 MMOL/L 03/21/2024 5:45 PM T [facility] CALCIUM S/P/B 8.7 8.5 - 10.1 MG/DL 03/21/2024 5:45 PM T [facility] BILIRUBIN TOTAL S/P/B 0.4 0.2 - 1.2 MG/DL 03/21/2024 5:45 PM [facility] TOTAL PROTEIN S/P/B 6.9 6.4 - 8.2 G/DL 03/21/2024 5:45 PM T [facility] ALBUMIN S/P/B 3.9 3.4 - 5.0 G/DL 03/21/2024 5:45 PM T [facility] AST 10(L) 15 - 37 U/L 03/21/2024 5:45 PM T [facility] ALT 17 14 - 55 U/L 03/21/2024 5:45 PM T [facility] ALKALINE PHOSPHATASE S/P/B 58 50 - 136 U/L 03/21/2024 5:45 PM T [facility] ANION GAP 9.6 5 - 15 MMOL/L 03/21/2024 5:45 PM CDT [facility] BUN CREATININE RATIO 22.1 6 - 26 03/21/2024 5:45 PM CDT [facility] A/G RATIO 1.3 1.0 - 2.0 RATIO 03/21/2024 5:45 PM CDT [facility] GFR ESTIMATE >90 >90 ML/MIN/1.7 3 M2 03/21/2024 5:45 PM CDT [facility] Comment: NOTE: eGFR is not calculated for patients <18 years of age. This is an estimated GFR calculation using the new CKD EPI creatinine equation without race and so does not require a correction factor for race. This estimated GFR should not be used for calculating drug doses. 03/21/2024 5:17 PM CDT us Felicita Lo MD LABORATORY Final Result [facility] [address] [place] [address], [place] [phone] * (ABNORMAL) CBC W/DIFF AUTOMATED (03/21/2024 5:17 PM CDT) WBC 7.28 4.4 - 11.0 x10'3/uL 03/21/2024 5:24 PM CDT [facility] RBC 4.37(L) 4.50 - 5.10 x10'6/uL 03/21/2024 5:24 PM CDT [facility] HGB 12.7 12.3 - 15.3 G/DL 03/21/2024 5:24 PM CDT [facility] HCT 38.7 35.9 - 44.6 % 03/21/2024 5:24 PM CDT [facility] MCV 88.6 80.0 - 96.0 FL 03/21/2024 5:24 PM CDT [facility] MCH 29.1 25.3 - 30.9 PG 03/21/2024 5:24 PM CDT [facility] MCHC 32.8 31.0 - 34.1 G/DL 03/21/2024 5:24 PM CDT [facility] RDW 13.1 12.4 - 15.1 % 03/21/2024 5:24 PM CDT [facility] PLT 158 151 - 353 x10'3/uL 03/21/2024 5:24 PM CDT [facility] MPV 12.9(H) 9.6 - 12.0 FL 03/21/2024 5:24 PM CDT [facility] RBC MORPHOLOGY NORMAL 03/21/2024 5:24 PM CDT [facility] PLT MORPH. NORMAL 03/21/2024 5:24 PM CDT [facility] WBC MORPHOLOGY NORMAL 03/21/2024 5:24 PM CDT [facility] LYMPHOCYTES % 19.4 15.8 - 45.0 % 03/21/2024 5:24 PM CDT [facility] NEUTROPHILS % 73.6(H) 42.1 - 71.9 % 03/21/2024 5:24 PM CDT [facility] MONOCYTES % 6.3 5.7 - 12.5 % 03/21/2024 5:24 PM CDT [facility] EOSINOPHILS 0.1 0.0 - 5.6 % 03/21/2024 5:24 PM CDT [facility] BASOPHILS 0.3 0.0 - 1.3 % 03/21/2024 5:24 PM CDT [facility] ABS. NEUTROPHILS 5.36 1.40 - 6.00 x10'3/uL 03/21/2024 5:24 PM CDT [facility] IMMATURE GRANS % 0.3 0.0 - 0.5 % 03/21/2024 5:24 PM CDT [facility] ABS. LYMPHOCYTES 1.41 0.80 - 4.70 x10'3/uL 03/21/2024 5:24 PM CDT [facility] 03/21/2024 5:17 PM CDT us Felicita Lo MD LABORATORY Final Result [facility] [address] [place] [address], [place] [phone] * CULTURE URINE (03/21/2024 4:50 PM CDT) SPEC DESCRIPTION URINE CLEAN CATCH 03/21/2024 5:30 PM CDT [facility] SPECIAL REQUESTS NO SPECIAL REQUEST 03/21/2024 5:30 PM CDT [facility] CULTURE RESULT POLYMICROBIAL GROWTH CONSISTENT WITH NORMAL GENITAL JACKIE. ?? SUSCEPTIBILITIES NOT ROUTINELY PERFORMED. 03/23/2024 9:52 AM CDT [facility] URINE SPECIMEN OBTAINED BY CLEAN CATCH PROCEDURE / Unknown 03/21/2024 4:50 PM CDT 03/21/2024 5:29 PM CDT us Felicita Lo MD MICROBIOLOGY - GENERAL ORDER ABBEY Final Result [facility] [address] [place] [address], [place] [phone] [facility] [address] [place] [address], [place] [phone] * (ABNORMAL) URINALYSIS WI REFLEX TO CULTURE (03/21/2024 4:50 PM CDT) COLOR (U) YELLOW 03/21/2024 5:25 PM CDT [facility] TRANSPARENCY HAZY 03/21/2024 5:25 PM CDT [facility] SPECIFIC GRAVITY (U) 1.015 1.000 - 1.030 03/21/2024 5:25 PM CDT [facility] U PH 8.5 5.0 - 9.0 03/21/2024 5:25 PM CDT [facility] LEUKOCYTES (U) TRACE(A) NEGATIVE 03/21/2024 5:25 PM CDT [facility] NITRITES NEGATIVE NEGATIVE 03/21/2024 5:25 PM CDT [facility] PROTEIN RANDOM (U) NEGATIVE NEGATIVE 03/21/2024 5:25 PM CDT [facility] GLUCOSE (U) NEGATIVE NEGATIVE 03/21/2024 5:25 PM CDT [facility] KETONES MG/DL (U) NEGATIVE NEGATIVE 03/21/2024 5:25 PM CDT [facility] BILIRUBIN (U) NEGATIVE NEGATIVE 03/21/2024 5:25 PM CDT [facility] BLOOD (U) NEGATIVE NEGATIVE 03/21/2024 5:25 PM CDT [facility] WBC/HPF 0-5 0 - 5 /HPF 03/21/2024 5:25 PM CDT [facility] RBC/HPF NONE SEEN 0 - 5 /HPF 03/21/2024 5:25 PM CDT [facility] EPI/HPF FEW /HPF 03/21/2024 5:25 PM CDT [facility] CULTURE & SENSITIVITY INDICATED? SPECIMEN SETUP FOR CULTURE 03/21/2024 5:25 PM CDT [facility] CRYSTALS (U) MODERATE /HPF 03/21/2024 5:25 PM CDT [facility] Comment:AMORPHOUS MATERIAL BACTERIA (U) FEW /HPF 03/21/2024 5:25 PM CDT [facility] URINE SPECIMEN OBTAINED BY CLEAN CATCH PROCEDURE / Unknown 03/21/2024 4:50 PM CDT us Felicita Lo MD URINE ORDERABLES Final Resul t [facility] [address] [place] [address], [place] [phone] documented in this encounter Visit Diagnoses Diagnosis Ruptured ovarian cyst- Primary Other and unspecified ovarian cyst documented in this encounter Administered Medications Inactive Administered Medications - up to 3 most recent administrations Medication Order MAR Action Action Date Dose Rate Site iopamidol (ISOVUE-370) 76 % injection 75 mL 75 mL, Intravenous, IMG once as needed, Contrast, 1 dose, Starting on 03/21/24 at 1803, Until 03/21/24 at 1803 Given 03/21/2024 6:03 PM CDT 75 mLs morphine injection 4 mg 4 mg, Intravenous, Once, 1 dose, On 03/21/24 at 1700 Given 03/21/2024 5:25 PM CDT 4 mg ondansetron (ZOFRAN) injection 4 mg 4 mg, Intravenous, Once, 1 dose, On 03/21/24 at 1700, IV push over 2-5 minutes. Given 03/21/2024 5:24 PM CDT 4 mg sodium chloride 0.9% bolus infusion 1,000 mL 1,000 mL, Intravenous, Administer over 60 Minutes, Once, 1 dose, On 03/21/24 at 1700 New Bag 03/21/2024 5:25 PM CDT 1,000 mLs documented in this encounter Active and Recently Administered Medications Times are shown in CDT. Scheduled Medication Order 03/19/2024 03/20/2024 03/21/2024 morphine injection 4 mg (COMPLETED) 4 mg, Intravenous, Once, 1 dose, On 03/21/24 at 1700 1725 (Given - Provid er: Myah Dumont, LANDON) ondansetron (ZOFRAN) injection 4 mg (COMPLETED) 4 mg, Intravenous, Once, 1 dose, On 03/21/24 at 1700, IV push over 2-5 minutes. 1724 (Given - Provid er: Myah Dumont, LANDON) sodium chloride 0.9% bolus infusion 1,000 mL (COMPLETED) 1,000 mL, Intravenous, Administer over 60 Minutes, Once, 1 dose, On 03/21/24 at 1700 1725 (New Bag - Prov ider: Myah Dumont RN)1825 (Due: Infusion Stop Time - Provider: Myah Dumont RN) PRN Medication Order 03/19/2024 03/20/2024 03/21/2024 iopamidol (ISOVUE-370) 76 % injection 75 mL (COMPLETED) 75 mL, Intravenous, IMG once as needed, Contrast, 1 dose, Starting on 03/21/24 at 1803, Until 03/21/24 at 1803 1803 (Given - Provid er: Petr Perez, RTR) documented in this encounter Additional Health Concerns Assessment Noted Time PHQ-9 Depression Total Score: 14 10/08/ 022 1:17 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
--- OUTSIDE RECORDS SUMMARY | 2024-11-14 19:15 | XMS_ITS | Encounter Summary ---
Author Organization [facility] Address [address] [place] [address]. [place], [place] [id number] [place] [address] Care Team Providers Care Edge Stripper Name Role Phone None, Provider Primary Care Provider Alfred valles Encounter Details Date Type Department Care Team (Latest Contact Info) Description 06/28/2024 Travel Social History Tobacco Use Types Packs/Day Years [...] on file documented as of this encounter Functional Status * RETIRED Are [...] Assessment Author Status No 01/26/2022 3:52 AM Taylor Swain R N Active documented as of this encounter Mental Status * Because of a physical, mental, or emotional condition, do you have serious difficulty concentrating, remembering, or making decisions? 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
--- OUTSIDE RECORDS SUMMARY | 2024-11-14 19:15 | XMS_ITS | Encounter Summary ---
Author Organization [facility] - [facility] Address [address] [place] [address]. [place], [place] [address] [place] [address] Care Team Providers Care Senior Firmware Engineer Name Role Phone Fiona Parkinson MD Primary Care Pr ovider Unavailable Jovanny Suazo MD Primary Care Provider [phone] None, Provider Primary Care Provider Unavaila ble Encounter Details Date Type Department Care Team (Late st Contact Info) Description 01/25/2023 MyChart Message Enc [facility] - [address] [place] [address] Fiona Parkinson MD STD screening Social History Tobacco Use Types Packs/Day Years [...] on file Sexual Orientation Not on file COVID-19 Exposure Response Date Recorded In the last 10 days, have yo u been in contact with someone who was confirmed or suspected to have Coronavirus/COVID-19? 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
--- OUTSIDE RECORDS SUMMARY | 2024-11-14 19:15 | XMS_ITS | Encounter Summary ---
Author Organization [facility] Address [address] [place] [address]. [place] [address] [place] [address] Care Team Providers Care Photographic Aide Name Role Phone None, Provider Primary Care Provider Unavaila ble Reason for Visit * Reason Comments Chest Pain Encounter Details Date Type Department Care Team (Late st Contact Info) Description 06/28/2024 12:04 AM CDT - 06/28/2024 4:56 AM CDT Emergency [facility] Emergency Room [id number] [place] [id number] Derian Sorenson MD [address] [place] [id number] Chest Pain Discharge Disposition: Home or Self Care [...] Sign Reading Time Taken Comments Blood Pressure 106/86 06/28/2024 2:50 AM CDT Pulse 65 06/28/2024 2:50 AM CDT Temperature 36.1 ??C (96.9 ??F) 06/28/2024 12:08 AM C DT Respiratory Rate 17 06/28/2024 2:50 AM CDT Oxygen Saturation 98% 06/28/2024 2:50 AM CDT Inhaled Oxygen Concentration - - Weight 76.7 kg (169 lb) 06/28/2024 12:08 AM CDT Height 160 cm (5' 3 ) 06/28/2024 12:08 AM CDT Body Mass Index 29.94 06/28/2024 12:08 AM CDT documented in this encounter Functional Status [...] this encounter Discharge Instructions * Discharge Instructions* Derian Sorenson MD - 06/28/2024 4:25 AM CDT Contact your primary care doctor on Saturday morning to arrange follow-up to assess the appropriate path for management of your ongoing anxiety. Typically speaking additional controlled substances for anxiety are not provided after an emergency department visit as these should be managed by a primarycare doctor. * Attachments The following attachments cannot be sent through Care Everywhere. * Anxiety Discharge Instructions, Adult (Trinidadian) documented in this encounter ED Notes * Derian Sorenson MD - 06/28/2024 4:13 AM CDT Chief Complaint Chief Complaint Patient presents with Chest Pain History of Present Illness 23-year-old female here with complaints of chest pain in the setting of increased social stresses at home. Patient reports that her symptoms are similar to previous panic attacks. Patient does not take anxiety medication at home but has in the past. She denies fever, chills, cough, shortness of breath. She denies sick contacts. Overall the pain sensation that she is reporting is a sensation of heaviness and primarily in the upper chest. Medical History ALLERGIES: Review of patient's allergies indicates: Allergen Reactions Sulfa Antibiotics Hives Vancomycin Infusion Reaction Fever, chills Norelgestromin-Eth Estradiol Nausea Only Clindamycin Hives MEDICATIONS: Prior to Admission medications Not on File PAST MEDICAL HISTORY: Past Medical History: Diagnosis Date Anxiety disorder, unspecified Depression 2017 Misophonia 2014 PAST SURGICAL HISTORY: [...] Marijuana Review of Systems Review of Systems Physical Exam Filed Vitals: 06/28/24 0235 06/28/24 0240 06/28/24 0245 06/28/24 0250 BP: 106/86 Pulse: 70 65 68 65 Resp: 16 18 17 Temp: TempSrc: SpO2: 98% 100% 99% 98% Weight: Height: Physical Exam Vitals and nursing note reviewed. Constitutional: General: She is not in acute distress. Appearance: She is well-developed. HENT: Head: Normocephalic and atraumatic. Right Ear: External ear normal. Left Ear: External ear normal. Nose: Nose normal. Eyes: General: No scleral icterus. Pupils: Pupils are equal, round, and reactive to light. Cardiovascular: Rate and Rhythm: Normal rate and regular rhythm. Pulses: Normal pulses. Heart sounds: Normal heart sounds. Pulmonary: Effort: Pulmonary effort is normal. No respiratory distress. Breath sounds: Normal breath sounds. No stridor. No wheezing. Abdominal: General: Bowel sounds are normal. There is no distension. Palpations: Abdomen is soft. Musculoskeletal: General: No deformity. Normal range of motion. Cervical back: Normal range of motion and neck supple. Skin: General: Skin is warm and dry. Capillary Refill: Capillary refill takes less than 2 seconds. Findings: No rash. Neurological: Mental Status: She is alert and oriented to person, place, and time. Cranial Nerves: No cranial nerve deficit. Psychiatric: Mood and Affect: Mood normal. Behavior: Behavior normal. Diagnostic Studies / Procedures ELECTROCARDIOGRAMS: Results for orders placed or performed during the hospital encounter of 06/28/24 ECG 12 lead Narrative [facility] Test Date: 2024-06-28 Pat Name: ANGELA KIRKLAND Department: 85 Room: EXAM [facility] Gender: Female Director Medical: : 2000 Requested By: DERIAN SORENSON Order Number: [id number] Reading MD: Measurements Intervals [place] Rate: 66 P: 49 [place]: 127 QRS: 42 QRSD: 82 T: 4 QT: 386 QTc: 406 Interpretive Statements SINUS RHYTHM WITH SINUS ARRHYTHMIA NONSPECIFIC T-WAVE ABNORMALITY Compared to ECG 10/23/2022 03:05:40 Possible ischemia no longer present T-wave abnormality still present EKG interpreted by me at the time of acquisition: Sinus rhythm. Rate 66. No ST or T wave changes tosuggest acute ischemia. No ectopy. LABORATORY STUDIES: Results for orders placed or performed during the hospital encounter of 06/28/24 CBC W/DIFF AUTOMATED Result Value Ref Range WBC 7.84 4.4 - 11.0 x10'3/uL RBC 4.53 4.50 - 5.10 x10'6/uL HGB 13.2 12.3 - 15.3 G/DL HCT 40.2 35.9 - 44.6 % MCV 88.7 80.0 - 96.0 FL MCH 29.1 25.3 - 30.9 PG MCHC 32.8 31.0 - 34.1 G/DL RDW 13.0 12.4 - 15.1 % PLT 197 151 - 353 x10'3/uL MPV 13.0 (H) 9.6 - 12.0 FL RBC MORPHOLOGY NORMAL PLT MORPH. NORMAL WBC MORPHOLOGY NORMAL LYMPHOCYTES % 20.7 15.8 - 45.0 % NEUTROPHILS % 71.7 42.1 - 71.9 % MONOCYTES % 5.9 5.7 - 12.5 % EOSINOPHILS 0.4 0.0 - 5.6 % BASOPHILS 0.4 0.0 - 1.3 % ABS. NEUTROPHILS 5.63 1.40 - 6.00 x10'3/uL IMMATURE GRANS % 0.9 (H) 0.0 - 0.5 % ABS. LYMPHOCYTES 1.62 0.80 - 4.70 x10'3/uL COMPREHENSIVE METABOLIC PANEL Result Value Ref Range GLUCOSE 94 70 - 99 MG/DL BUN 18 7 - 18 MG/DL CREATININE S/P/B 0.81 0.55 - 1.02 MG/DL SODIUM S/P/B 141 136 - 145 MMOL/L POTASSIUM S/P/B 3.6 3.5 - 5.1 MMOL/L CHLORIDE S/P/B 102 100 - 108 MMOL/L CO2 29.3 21 - 32 MMOL/L CALCIUM S/P/B 9.3 8.5 - 10.1 MG/DL BILIRUBIN TOTAL S/P/B 0.3 0.2 - 1.2 MG/DL TOTAL PROTEIN S/P/B 7.2 6.4 - 8.2 G/DL ALBUMIN S/P/B 4.2 3.4 - 5.0 G/DL AST 12 (L) 15 - 37 U/L ALT 19 14 - 55 U/L ALKALINE PHOSPHATASE S/P/B 60 50 - 136 U/L ANION GAP 9.7 5 - 15 MMOL/L BUN CREATININE RATIO 22.2 6 - 26 A/G RATIO 1.4 1.0 - 2.0 RATIO GFR ESTIMATE >90 >90 ML/MIN/1.73 M2 TROPONIN, QUANT Result Value Ref Range TROPONIN I HIGH SENSITIVITY 5 0 - 50 ng/L IMAGING STUDIES XR CHEST PA+LAT Final Result by User, [id number] (06/28 57) CLINICAL HISTORY: Chest heaviness/pain COMPARISON: 10/13/2022 TECHNIQUE: AP Portable View FINDINGS: Lungs are clear. No pneumothorax or pleural effusions evident. The cardiac silhouette, mediastinal contours, and pulmonary vessels appear within normal limits. No acute osseous abnormality. IMPRESSION: No acute findings. Referred By: Interpreted By: Calvin Michel, 06/28/2024 12:51 AM ED Course / Medical Decision Making Medical Decision Making 23-year-old female here with complaints of chest pain in the setting of increased social stresses at home. Patient reports that her symptoms are similar to previous panic attacks. Patient does not take anxiety medication at home but has in the past. She denies fever, chills, cough, shortness of breath. She denies sick contacts. Overall the pain sensation that she is reporting is a sensation of heaviness and primarily in the upper chest. Clinical Impression Anxiety (Primary) Disposition: Discharge Derian Sorenson MD 06/28/24 0425 * Zeny Martinez RN - 06/28/2024 12:13 AM CDT 23 year old female came in with complaints of 2/10 chest tightness which she states started yesterday and has been coming/going over the last 24- hours. According to patient she would suddenly have sharp 8/10 pain randomly and hand tremors within the last day, which has since stopped. Patient states that she was having nausea,vomiting, and decreased appetite from anxiety about two weeks ago. Patient states she does have a history of anxiety. Patient denies any other symptoms. Patient is alert and oriented in the room. documented in this encounter Plan of Treatment Not on file documented as of this encounter Procedures Procedure Name Priority Date/Time Associated Diagnosis Comments XR CHEST PA+LAT STAT 06/28/2024 12:49 AM CDT COMPREHENSIVE METABOLIC PANEL STAT 06/28/2024 12:34 AM CDT CBC W/DIFF AUTOMATED STAT 06/28/2024 12:34 AM CDT TROPONIN, QUANT STAT 06/28/2024 12:34 AM CDT ECG 12-LEAD Routine 06/28/2024 12:27 AM CDT documented in this encounter Results * XR CHEST PA+LAT (06/28/2024 12:49 AM CDT) Anatomical Region Laterality Modality Chest Radiographic Ann Marie ging 06/28/2024 12:5 1 AM CDT Impressions 06/28/2024 12:52 AM CDT IMPRESSION: No acute findings. Referred By: ?? Interpreted By: Calvin Michel, 06/28/2024 12:51 AM Narrative 06/28/2024 12:52 AM CDT CLINICAL HISTORY: Chest heaviness/pain COMPARISON: 10/13/2022 TECHNIQUE: AP Portable View FINDINGS: Lungs are clear. No pneumothorax or pleural effusions evident. The cardiac silhouette, mediastinal contours, and pulmonary vessels appear within normal limits. No acute osseous abnormality. Procedure Note Calvin Michel MD - 06/28/2024 CLINICAL HISTORY: Chest heaviness/pain COMPARISON: 10/13/2022 TECHNIQUE: AP Portable View FINDINGS: Lungs are clear. No pneumothorax or pleural effusions evident. The cardiacsilhouette, mediastinal contours, and pulmonary vessels appear withinnormal limits. No acute osseous abnormality. IMPRESSION: No acute findings. Referred By: Interpreted By: Calvin Michel, 06/28/2024 12:51 AM Derian Sorenson MD GENERAL IMAGING Final Resu lt * TROPONIN, QUANT (06/28/2024 12:34 AM CDT) TROPONIN I HIGH SENSITIVITY 5 0 - 50 ng/L 06/28/2024 12:57 AM CDT [facility] Comment: HIGH DOSES OF BIOTIN, TROPONIN-SPECIFIC AUTOANTIBODIES, AND ANTIBODY THERAPY CONTAINING HAMA MAY INTERFERE WITH THIS TEST RESULT. CORRELATION TO CLINICAL HISTORY AND PRESENTATION RECOMMENDED. 06/28/2024 12:3 4 AM CDT Derian Sorenson MD LABORATORY Final Resu lt [facility] [address] [place] [address], * (ABNORMAL) COMPREHENSIVE METABOLIC PANEL (06/28/2024 12:34 AM CDT) GLUCOSE 94 70 - 99 MG/DL 06/28/2024 12:55 AM CDT [facility] BUN 18 7 - 18 MG/DL 06/28/2024 12:55 AM CDT [facility] CREATININE S/P/B 0.81 0.55 - 1.02 MG/DL 06/28/2024 12:55 AM CDT [facility] SODIUM S/P/B 141 136 - 145 MMOL/L 06/28/2024 12:55 AM CDT [facility] POTASSIUM S/P/B 3.6 3.5 - 5.1 MMOL/L 06/28/2024 12:55 AM CDT [facility] CHLORIDE S/P/B 102 100 - 108 MMOL/L 06/28/2024 12:55 AM CDT [facility] CO2 29.3 21 - 32 MMOL/L 06/28/2024 12:55 AM CDT [facility] CALCIUM S/P/B 9.3 8.5 - 10.1 MG/DL 06/28/2024 12:55 AM CDT [facility] BILIRUBIN TOTAL S/P/B 0.3 0.2 - 1.2 MG/DL 06/28/2024 12:55 AM CDT [facility] TOTAL PROTEIN S/P/B 7.2 6.4 - 8.2 G/DL 06/28/2024 12:55 AM T [facility] ALBUMIN S/P/B 4.2 3.4 - 5.0 G/DL 06/28/2024 12:55 AM T [facility] AST 12(L) 15 - 37 U/L 06/28/2024 12:55 AM T [facility] ALT 19 14 - 55 U/L 06/28/2024 12:55 AM T [facility] ALKALINE PHOSPHATASE S/P/B 60 50 - 136 U/L 06/28/2024 12:55 AM T [facility] ANION GAP 9.7 5 - 15 MMOL/L 06/28/2024 12:55 AM [facility] BUN CREATININE RATIO 22.2 6 - 26 06/28/2024 12:55 AM [facility] A/G RATIO 1.4 1.0 - 2.0 RATIO 06/28/2024 12:55 AM [facility] GFR ESTIMATE >90 >90 ML/MIN/1.7 3 M2 06/28/2024 12:55 AM T [facility] Comment: NOTE: eGFR is not calculated for patients <18 years of age. This is an estimated GFR calculation using the new CKD EPI creatinine equation without race and so does not require a correction factor for race. This estimated GFR should not be used for calculating drug doses. 06/28/2024 12:3 4 AM CDT us Derian Sorenson MD LABORATORY Final Resu lt [facility] [address] [place] [address], [place] [phone] * (ABNORMAL) CBC W/DIFF AUTOMATED (06/28/2024 12:34 AM CDT) [facility] WBC 7.84 4.4 - 11.0 x10'3/uL 06/28/2024 12:52 AM CDT [facility] RBC 4.53 4.50 - 5.10 x10'6/uL 06/28/2024 12:52 AM CDT [facility] HGB 13.2 12.3 - 15.3 G/DL 06/28/2024 12:52 AM CDT [facility] HCT 40.2 35.9 - 44.6 % 06/28/2024 12:52 AM CDT [facility] MCV 88.7 80.0 - 96.0 FL 06/28/2024 12:52 AM CDT [facility] MCH 29.1 25.3 - 30.9 PG 06/28/2024 12:52 AM CDT [facility] MCHC 32.8 31.0 - 34.1 G/DL 06/28/2024 12:52 AM CDT [facility] RDW 13.0 12.4 - 15.1 % 06/28/2024 12:52 AM CDT [facility] PLT 197 151 - 353 x10'3/uL 06/28/2024 12:52 AM CDT [facility] MPV 13.0(H) 9.6 - 12.0 FL 06/28/2024 12:52 AM CDT [facility] RBC MORPHOLOGY NORMAL 06/28/2024 12:52 AM T [facility] PLT MORPH. NORMAL 06/28/2024 12:52 AM CDT [facility] WBC MORPHOLOGY NORMAL 06/28/2024 12:52 AM CDT [facility] LYMPHOCYTES % 20.7 15.8 - 45.0 % 06/28/2024 12:52 AM CDT [facility] NEUTROPHILS % 71.7 42.1 - 71.9 % 06/28/2024 12:52 AM CDT [facility] MONOCYTES % 5.9 5.7 - 12.5 % 06/28/2024 12:52 AM CDT [facility] EOSINOPHILS 0.4 0.0 - 5.6 % 06/28/2024 12:52 AM CDT [facility] BASOPHILS 0.4 0.0 - 1.3 % 06/28/2024 12:52 AM CDT [facility] ABS. NEUTROPHILS 5.63 1.40 - 6.00 x10'3/uL 06/28/2024 12:52 AM CDT [facility] IMMATURE GRANS % 0.9(H) 0.0 - 0.5 % 06/28/2024 12:52 AM CDT [facility] ABS. LYMPHOCYTES 1.62 0.80 - 4.70 x10'3/uL 06/28/2024 12:52 AM CDT [facility] 06/28/2024 12:3 4 AM CDT Derian Sorenson MD LABORATORY Final Resu lt [facility] [address] [place] [address], * ECG 12 lead (06/28/2024 12:27 AM CDT) 06/28/2024 12:2 7 AM CDT Narrative [facility] - 06/29/2024 8:25 PM CDT ?[facility] ? Test Date: ?2024-06-28 Pat Name: ? ANGELAMARTIR BREWREVIN ? Department: ?? 85 ? Room: ? OOED Gender: ? Female ? Director Medical: ?? : ?2000 ? Requested By: DERIAN RATHERT Order Number: [id number] ? Reading MD: ?? Jerry Edmonds ? Measurements Intervals ?[place] ? Rate: ? 66 ? P: ?49 [place]: ? 127 ?QRS: ?42 QRSD: ? 82 ? T: ?4 QT: ? 386 ? QTc: ?406 ? Interpretive Statements SINUS RHYTHM WITH SINUS ARRHYTHMIA NONSPECIFIC T-WAVE ABNORMALITY Compared to ECG 10/23/2022 03:05:40 Possible ischemia no longer present T-wave abnormality still present Procedure Note Jerry Edmonds MD - 06/29/2024 [facility] Test Date: 2024-06-28 Pat Name: ANGELA KIRKLAND Department: 85 Room: [facility] Gender: Female Director Medical: : 2000 Requested By: DERIAN SORENSON Order Number: [id number] [place] MD: Jerry Edmonds Measurements Intervals [place] Rate: 66 P: 49 [place]: 127 QRS: 42 QRSD: 82 T: 4 QT: 386 QTc: 406 Interpretive Statements SINUS RHYTHM WITH SINUS ARRHYTHMIA NONSPECIFIC T-WAVE ABNORMALITY Compared to ECG 10/23/2022 03:05:40 Possible ischemia no longer present T-wave abnormality still present us Derian Sorenson MD ECG ORDERABLES Final Resu lt [facility] ([facility] documented in this encounter Visit Diagnoses Diagnosis Anxiety- Primary Anxiety state, unspecified documented in this encounter Administered Medications Inactive Administered Medications - up to 3 most recent administrations Medication Order MAR Action Action Date Dose Rate Site LORazepam (ATIVAN) tablet 1 mg 1 mg, Oral, Once, 1 dose, On 06/28/24 at 0045 Given 06/28/2024 12:54 AM CDT 1 mg maalox plus-lidocaine viscous ([facility]) 45 mL suspension Oral, Once, 1 dose, On 06/28/24 at 0130 Given 06/28/2024 2:00 AM CDT documented in this encounter Active and Recently Administered Medications Times are shown in CDT. 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
--- OUTSIDE RECORDS SUMMARY | 2024-11-14 19:15 | XMS_ITS | Encounter Summary ---
Author Organization [facility] Address [address] [place] [address]. [place], [place] [id number] [place] [address] Care Team Providers Care Raw Stock Machine Feeder Name Role Phone Jovanny Suazo MD Primary Care Provider [phone] Encounter Details Date Type Department Care Team (Latest Contact Info) Description 05/24/2024 Travel Social History Tobacco Use Types Packs/Day [...] Author Status No 01/26/2022 3:52 AM CDT Lo, Taylor S, R N Active * Because of a [...] Date Author Status No 01/26/2022 3:52 AM CDTaylor Charles R N Active documented in this encounter Plan of Treatment Not on file documented as of this encounter Visit Diagnoses Not on filedocumented in this encounter Additional Health Concerns Assessment Noted Time PHQ-9 Depression Total Score: 14 10/08/ 022 1:17 PM 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
--- OUTSIDE RECORDS SUMMARY | 2024-11-14 19:15 | XMS_ITS | Encounter Summary ---
Author Organization [facility] Address [address] [place] [address]. [place] [address] [place] [address] Care Team Providers Care Tube Bender Name Role Phone Jovanny Suazo MD Primary Care Provider Reason for Referral * Imaging (Emergency) - Pending Review Specialty Diagnoses / Procedures Referred By Contac t Referred To Contact RADIOLOGY Procedures US PELVIC NON OB COMP TA+TV US PELVIC NON OB COMP TV Antony Deluna MD [address] [facility] [address] [address] Phone: tel: fax: Referral ID Status Reason Start Date Expiration Date V isits Requested Visits Authorized [id number] Pending Review 05/24/2024 05/24/2025 1 1 Reason for Visit * Reason Comments Pelvic Pain Encounter Details Date Type Department Care Team (Late st Contact Info) Description 05/24/2024 11:02 PM CDT - 05/24/2024 11:53 PM CDT Emergency [facility] Emergency Room [address] [place] [address] Antony Deluna MD [address] [phone] Pelvic Pain Discharge Disposition: Home or Self Care [...] Sign Reading Time Taken Comments Blood Pressure 120/78 05/24/2024 11:50 PM CDT Pulse 73 05/24/2024 11:50 PM CDT Temperature 37 ??C (98.6 ??F) 05/24/2024 11:06 PM CDT Respiratory Rate 16 05/24/2024 11:50 PM CDT Oxygen Saturation 99% 05/24/2024 11:50 PM CDT Inhaled Oxygen Concentration - - Weight 76.7 kg (169 lb 1.5 oz) 05/24/2024 11:06 PM CDT Height 160 cm (5' 3 ) 05/24/2024 11:06 PM CDT Body Mass Index 29.95 05/24/2024 11:06 PM CDT documented in this encounter Functional Status * RETIRED Are you deaf or do you have serious difficulty hearing Answer Date of Assessment Author Status No 01/26/2022 3:52 AM CDT Activ e * RETIRED Are you blind or do you have serious difficulty seeing, even when wearing glasses? Answer Date of Assessment Author Status No 01/26/2022 3:52 AM CDT Acti ve * Do you have serious difficulty walking [...] Author Status No 01/26/2022 3:52 AM CDT Wally Jimbo Gtz Active documented in this encounter Discharge Instructions * Attachments The following attachments cannot be sent through Care Everywhere. * Painful periods (Canadian) * Trichomoniasis Discharge Instructions (Canadian) documented in this encounter Medications at Time of Discharge metroNIDAZOLE (FLAGYL) 500 MG tablet Take 1 tablet (500 mg total) by mouth 2 (two) times a day for 7 days. 14 tablet 05/24/2024 05/31/2024 traMADol (ULTRAM) 50 MG tabletIndications :Acute Pain < 7 Day Supply Take 1 tablet (50 mg total) by mouth every 6 (six) hours as needed for Pain. Indications: Acute Pain < 7 Day Supply 20 tablet 05/24/2024 06/28/2024 documented as of this encounter ED Notes * Antony Deluna MD - 05/24/2024 11:07 PM CDT Chief Complaint Chief Complaint Patient presents with Pelvic Pain History of Present Illness This patient is a 23yo female with no pertinent PMH who presents to the ED for evaluation of pelvicpain. She reports onset ~5pm today of mod/severe left pelvic pain. The pain is associated with mildnausea. She has had similar pain in the past with menstruation. The patient is currently menstruating. Workup at [facility] this evening was unremarkable. So, she was transferred here for US to r/o torsion. Medical History ALLERGIES: Review of patient's allergies indicates: Allergen Reactions Sulfa Antibiotics Hives Vancomycin Infusion Reaction Fever, chills Clindamycin Hives MEDICATIONS: Prior to Admission medications Medication Sig Start Date End Date Taking? Authorizing Provider metroNIDAZOLE (FLAGYL) 500 MG tablet Take 1 tablet (500 mg total) by mouth 2 (two) times a day for 7 days. 05/24/24 05/31/24 Yes Antony Deluna MD traMADol (ULTRAM) 50 MG tablet Take 1 tablet (50 mg total) by mouth every 6 (six) hours as needed for Pain. Indications: Acute Pain < 7 Day Supply 05/24/24 Yes Antony Deluna MD PAST MEDICAL HISTORY: Past Medical History: Diagnosis Date Depression 2017 Misophonia 2015 PAST SURGICAL HISTORY: Past Surgical History: Procedure [...] Review of Systems Review of Systems Constitutional: Negative. Respiratory: Negative. Cardiovascular: Negative. Gastrointestinal: Positive for abdominal pain and nausea. Negative for blood in stool, constipation, diarrhea and vomiting. Genitourinary: Positive for pelvic pain and vaginal bleeding. Negative for dysuria, flank pain, frequency and vaginal discharge. Musculoskeletal: Negative. Skin: Negative. All other systems reviewed and are negative. Physical Exam Filed Vitals: 05/24/24 2305 05/24/24 2306 05/24/24 2350 BP: 127/83 127/83 120/78 Pulse: 72 73 Resp: 16 16 Temp: 98.6 ??F (37 ??C) TempSrc: Temporal SpO2: 99% 94% 99% Weight: 76.7 kg (169 lb 1.5 oz) Height: 1.6 m (5' 3 ) Physical Exam Vitals and nursing note reviewed. Constitutional: Appearance: Normal appearance. She is well-developed. HENT: Head: Normocephalic and atraumatic. Nose: Nose normal. Mouth/Throat: Mouth: Mucous membranes are moist. Eyes: Conjunctiva/sclera: Conjunctivae normal. Pupils: Pupils are equal, round, and reactive to light. Neck: Vascular: No JVD. Trachea: No tracheal deviation. Cardiovascular: Rate and Rhythm: Normal rate and regular rhythm. Pulmonary: Effort: Pulmonary effort is normal. Abdominal: General: There is no distension. Palpations: Abdomen is soft. There is no mass. Tenderness: There is abdominal tenderness (Mild tenderness LLQ.). There is no guarding or rebound. Musculoskeletal: General: Normal range of motion. Cervical back: Normal range of motion and neck supple. Skin: General: Skin is warm and dry. Capillary Refill: Capillary refill takes less than 2 seconds. Neurological: General: No focal deficit present. Mental Status: She is alert and oriented to person, place, and time. Sensory: No sensory deficit. Motor: No weakness. Diagnostic Studies / Procedures ELECTROCARDIOGRAMS: No results found for this visit on 05/24/24. LABORATORY STUDIES: No results found for this visit on 05/24/24. IMAGING STUDIES US PELVIC NON OB COMP TA+TV Final Result by User, [email or web address] (05/24 5859) Pelvic ultrasound nonobstetric complete with transabdominal and transvaginal images INDICATION: Pelvic pain. Possible torsion. COMPARISON: 07/06/2021. TECHNIQUE: Grayscale and Doppler images of the pelvis. FINDINGS: Uterus measures 7.7 x 4.5 x 3.9 cm. Endometrial thickness is 11.7 mm. Uterine volume is 71.9 cc. The uterus appears normal. Ovarian volumes are 8.1 cc on the right and 5.4 cc on the left. Both ovaries appear normal. There is normal bilateral Doppler flow with no evidence of torsion. There is mild free pelvic fluid. IMPRESSION: Mild free fluid. No evidence for ovarian torsion. Referred By: Interpreted By: Kamaljit Fair MD, 05/24/2024 11:36 PM ED Course / Medical Decision Making Diagnostic studies from [facility] were reviewed. CT was negative. Labwork was remarkable for trichomonas on wet prep. US is unremarkable. We will plan for discharge home with a limited amount of pain medication, a course of flagyl, and car porter followup. Medical Decision Making Problems Addressed: Dysmenorrhea: acute illness or injury Trichomonas infection: acute illness or injury Amount and/or Complexity of Data Reviewed Independent Historian: EMS External Data Reviewed: labs, radiology and notes. Details: Labs, US, and notes from OSH ED visit reviewed. Radiology: ordered. Decision-making details documented in ED Course. Risk Prescription drug management. Clinical Impression Trichomonas infection Dysmenorrhea (Primary) Disposition: Discharge Antony Deluna MD 05/25/24 0105 * Usha Moore RN - 05/24/2024 11:04 PM CDT Pt sent from [facility] ER for an US. Seen at their facility for c/o pelvic pain that started around 1700,has a hx of ovarian cysts which feels similar to the pain she is currently experiencing. documented in this encounter Plan of Treatment Not on file documented as of this encounter Procedures Procedure Name Priority Date/Time Associated Diagnosis Comments US PELVIC NON OB COMP TA+TV STAT 05/24/2024 11:35 PM CDT documented in this encounter Results * US PELVIC NON OB COMP TA+TV (05/24/2024 11:35 PM CDT) Anatomical Region Laterality Modality Pelvis Ultrasound 05/24/2024 11:3 6 PM CDT Impressions 05/24/2024 11:38 PM CDT IMPRESSION: Mild free fluid. ??No evidence for ovarian torsion. Referred By: ?? Interpreted By: Kamaljit Fair MD, 05/24/2024 11:36 PM Narrative 05/24/2024 11:38 PM CDT Pelvic ultrasound nonobstetric complete with transabdominal and transvaginal images INDICATION: Pelvic pain. ??Possible torsion. COMPARISON: 07/06/2021. TECHNIQUE: Grayscale and Doppler images of the pelvis. FINDINGS: Uterus measures 7.7 x 4.5 x 3.9 cm. ??Endometrial thickness is 11.7 mm. ??Uterine volume is 71.9 cc. ??The uterus appears normal. Ovarian volumes are 8.1 cc on the right and 5.4 cc on the left. ??Both ovaries appear normal. ??There is normal bilateral Doppler flow with no evidence of torsion. There is mild free pelvic fluid. Procedure Note Kamaljit Fair MD - 05/24/2024 Pelvic ultrasound nonobstetric complete with transabdominal andtransvaginal images INDICATION: Pelvic pain. Possible torsion. COMPARISON: 07/06/2021. TECHNIQUE: Grayscale and Doppler images of the pelvis. FINDINGS: Uterus measures 7.7 x 4.5 x 3.9 cm. Endometrial thickness is11.7 mm. Uterine volume is 71.9 cc. The uterus appears normal. Ovarian volumes are 8.1 cc on the right and 5.4 cc on the left. Bothovaries appear normal. There is normal bilateral Doppler flow with noevidence of torsion. There is mild free pelvic fluid. IMPRESSION: Mild free fluid. No evidence for ovarian torsion. Referred By: Interpreted By: Kamaljit Fair MD, 05/24/2024 11:36 PM Antony Deluna MD ULTRASOUND Final Re sult documented in this encounter Visit Diagnoses Diagnosis Dysmenorrhea- Primary Trichomonas infection Trichomoniasis, unspecified documented in this encounter Administered Medications Inactive Administered Medications - up to 3 most recent administrations Medication Order MAR Action Action Date Dose Rate Site HYDROcodone-acetaminophen (NORCO) 5-325 MG tablet 1 tablet 1 tablet, Oral, Once, 1 dose, On Sat05/25/24 at 0000, Maximum dose of acetaminophen is 4000 mg from all sources in 24 hours. Given 05/24/2024 11:50 PM CDT 1 tablet documented in this encounter Active and Recently Administered Medications Times are shown in CDT. Scheduled Medication Order 05/22/2024 05/23/2024 05/24/2024 HYDROcodone-acetaminophen (NORCO) 5-325 MG tablet 1 tablet (COMPLETED) 1 tablet, Oral, Once, 1 dose, On Sat05/25/24 at 0000, Maximum dose of acetaminophen is 4000 mg from all sources in 24 hours. 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
--- OUTSIDE RECORDS SUMMARY | 2024-11-14 19:15 | XMS_ITS | Encounter Summary ---
Author Organization [facility] Address [address] [place] [address] Care Team Providers Care Sedimentationist Name Role Phone Katie Kellogg MD Primary Care Provider [phone] Reason for Visit * Reason Onset Date Comments Patient Requested Call 05/04/2019 Encounter Details Date Type Department Care Team (Late st Contact Info) Description 05/04/2019 Telephone [facility] [address] [place], [place] [id number] Radha Pfeiffer, ROOFER ASSISTANT-CANT HOOKER [address] [address] Patient Requested Call Social History Tobacco Use Types Packs/Day Years Used Date Smoking Tobacco: Never Smokeless Tobacco: Never Alcohol Use Standard Drinks/Week Comments No 0 (1 standard drink = 0.6 oz pur e alcohol) Sex and Gender Information Value Date Recorded Sex Assigned at Not on file Gender Identity Not on file Sexual Orientation Not on file documented as of this encounter Miscellaneous Notes * Telephone Encounter - Shyanne Bhagat LPN - 05/04/2019 3:17 PM CDT After checking with the SLO I called the patient - left a message - her insurance card was found . It will be sent to her home address. Any other questions or problems please call back. * Telephone Encounter - Gini Hanson - 05/04/2019 1:09 PM CDT Pt call to see if anyone found her insurance card. Pt had appt today with Radha Pfeiffer at [facility]. Please call Pt at [phone] documented in this encounter Plan of Treatment Not on file documented as of this encounter Visit Diagnoses Not on filedocumented in this encounter Care Teams Sedimentationist Relationship Specialty Start Date End Date Katie Kellogg MD [address] [place] [address] PCP - General 05/31/18 documented as of this encounter
--- OUTSIDE RECORDS SUMMARY | 2024-11-14 19:15 | XMS_ITS | Encounter Summary ---
Author Organization [facility] Address [address] [place] [place] [address] Care Team Providers Care Wet Finisher Name Role Phone Silvia Kellogg LPN Primary Care Provider [phone] Reason for Visit * Reason Comments Evaluation Referered from naga jimenes For IBD Encounter Details Date Type Department Care Team (Latest Contact Info) Description 05/29/2018 1:45 PM CDT - 05/29/2018 11:59 PM CDT Hospital Encounter [facility] [place] [address] [place] [address] Fidelia Kaur, MECHANICAL MANUFACTURING ENGINEER-CHENILLE MACHINE OPERATOR [address] [place] [id number] Discharge Disposition: Home or Self Care Social [...] Sign Reading Time Taken Comments Blood Pressure - - Pulse - - Temperature - - Respiratory Rate - - Oxygen Saturation - - Inhaled Oxygen Concentration - - Weight 71.5 kg (157 lb 10.1 oz) 05/29/2018 1:49 PM CDT Height 161.7 cm (5' 3.66 ) 05/29/2018 1:49 PM CD T Body Mass Index 27.35 05/29/2018 1:49 PM CDT Body Mass Index Percentile 90.99% 05/29/2018 1:4 9 PM CDT Growth Chart: [facility] (Girls, 2- 20 Years) documented in this encounter Discharge Instructions * Patient Instructions* Fidelia Kaur APRN-CNP - 05/29/2018 2:43 PM CDT Call the GI office ([phone]) for test results in 1 week. documented in this encounter Medications at Time of Discharge Medication Sig Dispensed Refills Start Date End Date busPIRone (BUSPAR) 10 MG tablet Take 10 mg by mouth 3 times daily 20mg AM 10mg afternoon 20mg in PM 05/04/2019 Ergocalciferol (VITAMIN D2 PO) Take 50,000 capsules by mouth every 7 days 05/04/2019 ferrous sulfate 325 (65 FE) MG tablet Take 325 mg by mouth once daily 05/04/2019 hyoscyamine (LEVSIN/SL) 0.125 MG SL tablet Dissolve 1 tablet under the tongue 2 times daily as needed for Spasms 60 tablet 1 05/29/2018 05/04/2019 sertraline (ZOLOFT) 25 MG tablet Take 25 mg by mouth once daily 05/04/2019 SUMAtriptan (IMITREX) 25 MG tablet Take 25 mg by mouth as needed 0 11/21/2016 05/04/2019 documented as of this encounter Progress Notes * Fidelia Kaur APRN-CNP - 05/29/2018 2:11 PM CDT Angela Peterson was seen in consultation in our gastroenterology office at [facility] on 05/29/2018. She is a 17 y.o. 5 m.o. She was referred to us by her PCP, Silvia Kellogg LPN, for evaluation of bloody diarrhea. She was here with her Mother. Angela had acute onset of diarrhea 4 weeks ago. She had watery, stools 3-7 times per day. After 1 week, the stools were red with blood and mucous. This week her stools have been very small and soft solid without blood in them, but she is experiencing tenesmus. She has had abdominal pain off and on her whole life, but the pain was much worse when the diarrheabegan. She has generalized abdominal pain and nausea every day. Sometimes the pain is sharp causingabdominal cramping. In the past, she has had less abdominal pain when she was off gluten and limited dairy intake. There has been no fever and no vomiting. No other family member have been ill. There is no history of foreign travel. They have a pet dog but no other pets. Prior Diagnostic Tests: Reviewed records from PMD: 05/19/18 CBC with mild microcytosis. CMP, Sed rate--WNL CRP--5.5 (0-4.9) Stool tested positive Enteropathogenic E coli (EPEC) Stool negative Salmonella, Shigella, Campylobacter, Shiga Toxins, E. coli 0157:H7, Giardia, Cryptosporidium, C diff toxins. Prior Treatment: None. Review of Systems: Constitutional : (-) fever Eyes : (-) discharge ENT : (-) nasal congestion (-) rhinorrhea (-) sore throat (+) mouth sores-hx herpes CVS : (-) chest pain (-) shortness of breath Respiratory : (-) cough (-) wheezing GI : (See above) : (-) dysuria (-) hematuria AIRCRAFT TIME CLERK: Normal menstrual periods (+) vaginal spotting for the last few weeks. (-) dysmenorrhea Musculoskeletal : (-) musculoskeletal pain (-) swelling (+) joint pain, weakness CAKE ICER : (-) altered sensorium Neurological: (-) seizures Allergic : (-) seasonal allergies. Hematological : (-) bruising (-) bleeding (-) petechiae (+) anemia, on Fe supplement for 2 months. Dermatological: (-) rashes Sleep: (-) night time waking (-) snoring (-) daytime somnolence Psychological: Normal development. (+) anxiety, depression, ADHD CURRENT MEDICATIONS: Outpatient Prescriptions Marked as Taking for the 05/29/18 encounter (Hospital Encounter) with Fidelia Kaur APRN-CHENILLE MACHINE OPERATOR Medication Sig ??? busPIRone (BUSPAR) 10 MG tablet Take 10 mg by mouth 3 times daily 20mg AM 10mg afternoon 20mg in PM ??? ferrous sulfate 325 (65 FE) MG tablet Take 325 mg by mouth once daily ??? Ergocalciferol (VITAMIN D2 PO) Take 50,000 capsules by mouth every 7 days ??? sertraline (ZOLOFT) 25 MG tablet Take 25 mg by mouth once daily ALLERGIES: Allergies Allergen Reactions ??? Clindamycin Urticaria ??? Sulfa Drugs Urticaria PAST MEDICAL HISTORY: Past Medical History: No date: Anxiety No date: Asperger's disorder No date: Depression No date: FTND (full term normal delivery) Comment: wt 6 lb, 2 oz. 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 No date: Maternal UTI (urinary tract infection), recurr* 2012: Rotavirus infection Comment: hospitalized Past Surgical History: Procedure Laterality Date ??? MYRINGOTOMY WITH TUBE INSERTION ??? PCHG EYE MUSCLE SURG PROC UNLISTED ??? PCHG HAND/FINGER SURGERY UNLISTED ??? PCHG TEAR DUCT SYSTEM SURG UNLISTED ??? Tonsillectomy Family History Problem Relation Age of Onset ??? Other Maternal Grandfather IBS ??? Other Paternal Grandfather IBS ??? Other Maternal Aunt IBS ??? Celiac Disease Neg Hx ??? Crohn's Disease Neg Hx ??? Ulcerative Colitis Neg Hx SOCIAL HISTORY: Social History Social History Narrative Lives with both parents. She is a senior in high school and does well in school. PHYSICAL EXAM: Ht 1.617 m (5' 3.66 ) Wt 71.5 kg (157 lb 10.1 oz) BMI 27.35 kg/m2 42 %ile (Z= -0.20) based on CDC 2-20 Years axypofd-fin-rad data using vitals from 05/29/2018. 89 %ile (Z= 1.25) based on CDC 2-20 Years ljldar-gti-wxl data using vitals from 05/29/2018. Body mass index is 27.35 kg/(m^2). 91 %ile (Z= 1.34) based on CDC 2-20 Years BMI-for-age data using vitals from 05/29/2018. GENERAL: Alert, white female in no apparent distress. HEENT: Head is atraumatic. Sclera are anicteric. Oral pharynx is clear with moist mucous membranes.Neck is supple with no adenopathy. Trachea is midline. SKIN: Warm and dry. There are no rashes or jaundice. LUNGS: Chest is clear to auscultation without adventitious sounds. CARDIOVASCULAR: Heart has a regular rate and rhythm. Well perfused. Capillary refill is less than 3seconds. ABDOMEN: Abdomen is soft and non-distended with normal bowel sounds. There are no visible veins or scars. There are no masses or organomegaly. There is tenderness to deep palpation throughout the abdomen. NEUROLOGIC: Normal tone and gait for age. Grossly intact cranial nerves. EXTREMITIES: Grossly normal mobility and strength. Extremities are warm, without edema, cyanosis orclubbing. RECTAL: The anus appears normal with no tears, fissures or inflammation. IMPRESSION: 1. Generalized abdominal pain 2. Blood in stool 3. Diarrhea, unspecified type This is most likely resolving enteritis as she tested positive for Enteropathogenic E coli (EPEC). This is associated with prolonged course of diarrhea. The diarrhea has stopped but she continues to have abdominal pain. Other considerations include functional abdominal pain, Inflammatory Bowel Disease, celiac disease. PLAN: Labs and repeat stool at [facility]: Orders Placed This Encounter Procedures ??? CULTURE STOOL PANEL ??? CLOSTRIDIUM DIFFICILE TOXIN/GDH W REFLX TO PCR ??? CBC W AUTO DIFFERENTIAL ??? C-REACTIVE PROTEIN ??? IGA BLOOD ??? TISSUE TRANSGLUTAMINASE AB IGA ??? COMPREHENSIVE METABOLIC PANEL Can take Levsin 0.125 mg SL bid prn abd cramping. Call for test results. Angela's mother will call our office for test results and if there is no improvement over the next week. Diagnostic considerations were discussed. Angela and her mother verbalized understanding and agreed with the treatment options discussed. documented in this encounter Plan of Treatment Not on file documented as of this encounter Procedures Procedure Name Priority Date/Time Associated Diagnosis Comments LAB RESULTS ORDER 06/16/2018 7:1 9 PM CDT CULTURE STOOL PANEL Routine 06/09/2018 1 2:43 PM CDT Blood in stool Diarrhea, unspecified type Generalized abdominal pain C DIFFICILE TOXIN/GDH W REFLX TO PCR Routine 06/07/2018 12:42 PM CDT Blood in stool Diarrhea, unspecified type Generalized abdominal pain TISSUE TRANSGLUTAMINASE AB IGA Routine 06/07/2018 12:39 PM CDT Blood in stool Diarrhea, unspecified type Generalized abdominal pain C-REACTIVE PROTEIN Routine 06/07/2018 12 :39 PM CDT Blood in stool Diarrhea, unspecified type Generalized abdominal pain CBC W AUTO DIFFERENTIAL Routine 06/07/20 12:39 PM CDT Blood in stool Diarrhea, unspecified type Generalized abdominal pain COMPREHENSIVE METABOLIC PANEL Routine 06/07/2018 12:39 PM CDT Blood in stool Diarrhea, unspecified type Generalized abdominal pain IGA BLOOD Routine 06/07/2018 12:39 PM CDT Blood in stool Diarrhea, unspecified type Generalized abdominal pain documented in this encounter Results * LAB RESULTS ORDER (06/16/2018 7:19 PM CDT) Narrative 06/16/2018 7:19 PM CDT Ordered by an unspecified provider. Scanned Document LAB - THERAPEUTIC DR MALAVE MONITORING ORDERABLES * CULTURE STOOL PANEL (06/09/2018 12:43 PM CDT) [facility] Comment: ??SHIGA TOXINS, EIA W/RFL TO E.COLI O157 CULTURE ?MICRO NUMBER: ?[id number] ??TEST STATUS: ? FINAL ??SPECIMEN SOURCE: ?? STOOL ??SPECIMEN QUALITY: ??ADEQUATE ??RESULT: ?Not Detected Culture [facility] Comment: ??CAMPYLOBACTER, CULTURE ?MICRO NUMBER: ?[id number] ??TEST STATUS: ? FINAL ??SPECIMEN SOURCE: ?? STOOL ??SPECIMEN QUALITY: ??ADEQUATE ??RESULT: ?No enteric Campylobacter isolated Culture [facility] Comment: ??SALMONELLA AND SHIGELLA, CULTURE ?MICRO NUMBER: ?[id number] ??TEST STATUS: ? FINAL ??SPECIMEN SOURCE: ?? STOOL ??SPECIMEN QUALITY: ??ADEQUATE ??RESULT: ?No Salmonella or Shigella isolated REPORT COMMENT: SPLIT 06/07/2018 FROM [id number] Test Performed at: [address] ??[phone] NARINDER WAKEFIELD MD Stool STOOL SPECIMEN / Unknown 06/09/2018 12:43 PM CDT 06/10/2018 12:01 AM CDT Fidelia Kaur MECHANICAL MANUFACTURING ENGINEER-CHENILLE MACHINE OPERATOR LAB - [facility] ORDERABLES [address] [address] * CLOSTRIDIUM DIFFICILE TOXIN/GDH W REFLX TO PCR (06/07/2018 12:42 PM CDT) C difficile Toxin/GDH w/Reflex to PCR [facility] Comment: ??CLOSTRIDIUM DIFFICILE TOXIN/GDH W/REFL TO PCR ?MICRO NUMBER: ?[id number] ??TEST STATUS: ? FINAL ??SPECIMEN SOURCE: ?? STOOL ??SPECIMEN QUALITY: ??ADEQUATE ??GDH ANTIGEN: ? Not Detected ??TOXIN A AND B: ? Not Detected ??COMMENT: ? No toxigenic C. difficile detected ? For additional information, please refer to ? http://education.[employer]/faq/PHJ178 ? (This link is being provided for ? informational/educational purposes only.) REPORT COMMENT: COLLECTION KIT GIVEN TO PATIENT. PATIENT ADVISED TO RETURN. Test Performed at: [facility] [address] ??[phone] NARINDER WAKEFIELD MD Stool STOOL SPECIMEN / Unknown 06/07/2018 12:42 PM CDT 06/08/2018 12:35 AM CDT Fidelia Kaur MECHANICAL MANUFACTURING ENGINEER-CHENILLE MACHINE OPERATOR LAB - [facility] ORDERABLES Performing Organization Address [facility] de Phone Number [facility] [address] [place] [address] * COMPREHENSIVE METABOLIC PANEL (06/07/2018 12:39 PM CDT) Glucose 92 65 - 99 mg/dL [facility] Comment: ? Fasting reference interval BUN 12 7 - 20 mg/dL [facility] Creatinine 0.59 0.50 - 1.00 mg/dL [facility] Comment: Patient is <18 years old. Unable to calculate eGFR. BUN/Creatinine Ratio NOT APPLICABLE 6 - 22 (calc) [facility] Sodium 141 135 - 146 mmol/L [facility] Potassium 4.0 3.8 - 5.1 mmol/L [facility] Chloride 106 98 - 110 mmol/L [facility] CO2 25 20 - 31 mmol/L [facility] Calcium 9.8 8.9 - 10.4 mg/dL [facility] Protein Total 6.9 6.3 - 8.2 g/dL [facility] Albumin 4.5 3.6 - 5.1 g/dL [facility] Globulin Total 2.4 2.0 - 3.8 g/dL (calc) [facility] Albumin/Globuli n Ratio 1.9 1.0 - 2.5 (calc) [facility] Bilirubin Total 0.5 0.2 - 1.1 mg/dL [facility] Alkaline Phosphatase 69 47 - 176 U/L [facility] AST 13 12 - 32 U/L [facility] ALT 12 5 - 32 U/L [facility] Comment: Test Performed at: [facility] [address] ??[phone] STEPHANI RICHARDSON DO,MPH Blood BLOOD SPECIMEN / Unknown 06/07/2018 12:39 PM CDT 06/08/2018 3:26 AM CDT Fidelia Kaur MECHANICAL MANUFACTURING ENGINEER-CHENILLE MACHINE OPERATOR LAB - [facility] ORDERABLES Performing Organization Address [facility] de Phone Number [facility] [address] [place] [address] * TISSUE TRANSGLUTAMINASE AB IGA (06/07/2018 12:39 PM CDT) TTG Antibody IgA 1 <4 U/mL [facility] Comment: ?Value ??Interpretation ?<4 U/mL: No Antibody Detected ? >or=4 U/mL: Antibody Detected Test Performed at: [facility] [address] ??[phone] STACI MEJIA MD,PHD Blood BLOOD SPECIMEN / Unknown 06/07/2018 12:39 PM CDT 06/08/2018 3:26 AM CDT Fidelia Tuan Vincent MECHANICAL MANUFACTURING ENGINEER-CHENILLE MACHINE OPERATOR LAB - [facility] ORDERABLES Performing Organization Address [facility] de Phone Number [facility] [address] [place] [address] * IGA BLOOD (06/07/2018 12:39 PM CDT) Pathologist [facility] IgA 89 81 - 463 mg/dL [facility] Comment: Test Performed at: [facility] ??[phone] STEPHANI RICHARDSON DO,MPH Blood BLOOD SPECIMEN / Unknown 06/07/2018 12:39 PM CDT 06/08/2018 3:26 AM CDT Fidelia M Vincent MECHANICAL MANUFACTURING ENGINEER-CHENILLE MACHINE OPERATOR LAB - [facility] ORDERABLES Performing Organization Address [facility] de Phone Number [facility] [id number] [place] [address] * C-REACTIVE PROTEIN (06/07/2018 12:39 PM CDT) Pathologist [facility] C-Reactive Protein 6.3 <8.0 mg/L [facility] Comment: Test Performed at: [facility] [place] [address] [place], [place] ??[phone] STEPHANI RICHARDSON DO,MPH Blood BLOOD SPECIMEN / Unknown 06/07/2018 12:39 PM CDT 06/08/2018 3:26 AM CDT Fidelia Kaur MECHANICAL MANUFACTURING ENGINEER-CHENILLE MACHINE OPERATOR LAB - [facility] ORDERABLES Performing Organization Address [facility] de Phone Number [facility] [address] [place] [address] * (ABNORMAL) CBC W AUTO DIFFERENTIAL (06/07/2018 12:39 PM CDT) White Blood Cell Count 6.1 4.5 - 13.0 Thousand/u L [facility] RBC 4.65 3.80 - 5.10 Million/uL [facility] Hemoglobin 12.4 11.5 - 15.3 g/dL [facility] Hematocrit 38.9 34.0 - 46.0 % [facility] MCV 83.7 78.0 - 98.0 fL [facility] MCH 26.7 25.0 - 35.0 pg [facility] MCHC 31.9 31.0 - 36.0 g/dL [facility] RDW 14.5 11.0 - 15.0 % [facility] Platelet Count 181 140 - 400 Thousand/u L [facility] MPV 13.8(H) 7.5 - 12.5 fL [facility] Neutrophil Absolute 4221 1800 - 8000 cells/uL [facility] Lymphocytes Absolute 1379 1200 - 5200 cells/uL [facility] Absolute Monocytes 378 200 - 900 cells/uL [facility] Eosinophils Absolute 92 15 - 500 cells/uL [facility] Basophils Absolute 31 0 - 200 cells/uL [facility] Granulocytes % 69.2 % [facility] Lymphocytes % 22.6 % [facility] Monocytes % 6.2 % [facility] Eosinophils % 1.5 % [facility] Basophils % 0.5 % [facility] Comment: Test Performed at: [facility] [id number] [place] [address] ??[phone] STEPHANI RICHARDSON DO,MPH Blood BLOOD SPECIMEN / Unknown 06/07/2018 12:39 PM CDT 06/08/2018 3:26 AM CDT Fidelia Ellismonicogeorgette MECHANICAL MANUFACTURING ENGINEER-CHENILLE MACHINE OPERATOR LAB - HEM ATOLOGY ORDERABLES Performing Organization Address [facility] de Phone Number [facility] [address] [place] [address] documented in this encounter Visit Diagnoses Diagnosis Generalized abdominal pain- Primary Abdominal pain, generalized Blood in stool Diarrhea, unspecified type documented in this encounter Care Teams Wet Finisher Relationship Specialty Start Date End Date Silvia Kellogg LPN [address] [place] [address] PCP - General 02/24/18 05/30/18 documented as of this encounter
--- OUTSIDE RECORDS SUMMARY | 2024-11-14 19:15 | XMS_ITS | Clinical Summary ---
Author Organization [facility] Address [address] [place] [address]. [place] [address] [place] [address] Care Team Providers Care Freight Caller Name Role Phone None, Provider MD Primary Care Provider Unavaila ble Allergies Active Allergy Reactions Criticality Noted Date Comments Clindamycin Hives Low 05/06/2021 Norelgestromin-Eth Estradiol Nausea Only 2023 Sulfa Antibiotics Hives High 05/06/2021 Vancomycin Infusion Reaction High 01/26/2022 Fever, chills Medications No known medications Active Problems Problem Noted Date Diagnosed Date ASCUS with positive high risk HPV cervical 01/24 Overview (02/04/2023): March Repeat again in January 2024, if still showing ASCUS then send to obgyn for a colposcopy. Has multiple sexual partners 01/24/2023 History of chlamydia 01/24/2023 Pelvic pain 07/07/2021 Superficial thrombophlebitis of left upper extre mity 11/19/2018 Blood in stool 05/29/2018 Generalized abdominal pain 05/29/2018 Chronic diarrhea 05/28/2018 Anxiety 10/01/2017 Chronic daily headache 02/25/2017 Overview (01/26/2022): Last Assessment & Plan: Prior migraines have improved but recent headaches [...] or other neurological concerns. Headache 06/01/2014 Overview (01/26/2022): Last Assessment & Plan: Headache had migrainous features but was likely [...] Problem Noted Date Diagnosed Date Resolved Date Cellulitis 01/26/2022 01/24/2023 Immunizations Name Administration Dates Next Due Dtap 05/29/2006, 2,06/17/2001,04/21/2001, 02/18/2001 Fluarix 11/20/2013 HPV4 (Gardasil) 07/24/2011,01/31/2011,12/22/2010 Hepatitis A (Generic) 06/05/2018 Hepatitis A Vaccine - 2 Dose 06/09/2010 Hepatitis B Pediatric 2000 Hepatitis B/Hib 3 Dose Schedule 09/22/2001,02/18 Hib 03/23/2002,04/21/2001 Influenza (Generic) 11/26/2012,07/24/2011 Influenza Adult (Generic) 01/20/2020,09/30/2014 MMR 05/29/2006,03/23/2002,01/23/2002 Menactra 06/05/2018,05/07/2012 Pneumococcal (Prevnar 7) 01/23/2002,10/04/2001,0 06/17/2001,02/18/2001 Polio Ipv (Generic) 05/29/2006,03/23/2002,2000,02/18/2001 Tdap (Adacel) 05/07/2012 Varicella Vaccine 06/09/2010,01/23/2002 Family History Medical History Relation Comments Hypertension Father Thyroid Disease Mother Relation Status Comments Father Mother Social History Tobacco Use Types Packs/Day Years Used Date Smoking Tobacco: Never Smokeless Tobacco: Never Tobacco Cessation:Counseling Given: Not Answered Alcohol Use Standard Drinks/Week Comments Not Currently [...] Mass Index 29.94 06/28/2024 12:08 AM CDT Plan of Treatment Health Maintenance Due Date Last Done Comments DTaP, Tdap and Td Vaccines (7 - Td or Tdap) 05/07/2022 05/07/2012, 05/29/2006, 03/23/2002, Additional history exists Annual Physical 01/25/2024 01/24/2023 COVID-19 Vaccine ( season) 2024 05/01/2021, 04/03/2021 Influenza Adult (#1) 2024 01/20/2020, 09/30/2014, 11/20/2013, Additional history exists Cervical Cancer Screening Pap Smear (Age 21 to 29) Every 3 Years 10/08/2026 10/08/2023, 10/08/2023, 10/08/2023, Additional history exists Cervical Cancer Screening 10/08/2026 Hepatitis B Vaccines Completed 09/22/2001, 02/18/2001, 2000 Pneumococcal Vaccine: Pediatrics (0 to 5 Years) and At-Risk Patients (6 to 64 Years) Aged Out 01/23/2002, 10/04/2001, 06/17/2001, Additional history exists No longer eligible based on patient's age to complete this topic HPV Vaccines Completed 07/24/2011, 01/10, 12/22/2010 Meningococcal Vaccine Completed 06/05/2018, 012 Hepatitis C Completed 03/20/2022, 03/20/2022 RSV Immunizations Under 20 Months Aged Out No longer eligible based on patient's age to complete this topic Procedures Procedure Name Priority Date/Time Associated Diagnosis Comments CYTOPATH CERV/VAG THIN LAYER Routine 01/24/2023 8:02 AM CDT from Last 3 Months or Most Recently Relevant to Health Maintenance Results * Cytopath Cerv/Vag Thin Layer (01/24/2023 8:02 AM CDT) THIN PREP PAP ? [facility] ?[address] ?[place] [phone] ? Department of Pathology ? Pathology Report ? CERVICAL/VAGINAL PAP SMEAR REPORT Name: ANGELA KIRKLAND ? Age: 2 2000 (Age: 22) ?Location: [facility] Sex: F ?Collected Date: 01/24/2023 Hospital #: [id number] ?Date Received: 01/28/2023 Date Reported: 02/04/2023 Provider: FIONA PARKINSON MD INTERPRETATION ABNORMAL RESULT CERVICAL/ENDOCERVIC AL: ? SATISFACTORY FOR EVALUATION. ENDOCERVICAL/TRANSF ORMATION ZONE COMPONENT PRESENT. ? ATYPICAL SQUAMOUS CELLS OF UNDETERMINED SIGNIFICANCE. ATYPICAL SQUAMOUS CELLS-CANNOT EXCLUDE HIGH-GRADE SQUAMOUS INTRAEPITHELIAL LESION. POSITIVE FOR HIGH RISK HPV. The FDA approved Aptima HPV assay is an in vitro nucleic acid amplification test for the qualitative detection of E6/E7 viral messenger RNA (mRNA) from 14 high-risk types of human papillomavirus (HPV) in cervical specimens. ??The high-risk HPV types detected by the assay include: 16,18,31,33,35,39,4 5,51,52,56,58,59,66 , and 68. Electronically Signed Out ? Itzel Garcia M.D. Nettie Kwong, RHEA (ASCP) CLINICAL HISTORY Z00.00 R87.610 ?? R87.810 HX ASCUS, HPV POSITIVE ThinPrep Pap Test with HR HPV testing in patient > 21 years with ASC-US diagnosis. Date of Last Menstrual Period: ? 01/02/23 Menstrual Status: Regular SPECIMEN SUBMITTED CERVICAL/ENDOCERVIC AL ?Specimen Received:1 Thin Prep Vial, Image Assisted Pap (SMD) ? Please note: The Pap smear is not a diagnostic test. ??It is a screening test. ??Negative results on combined screening (Pap test and HPV-DNA) have a high negative predictive value (99.1-100 percent) for cervical cancer. ??The pap test is not effective in detecting cervical adenocarcinoma. [facility] 01/24/2023 8:02 AM CDT 01/28/2023 8:02 AM CDT Comment:CERVICAL/ENDOCERVICA L us Fiona Parkinson MD PATHOLOGY/CYTOLO GY ORDERABLES Final Result [facility] [address] [place] [address], [place] [phone] from Last 3 Months or Most Recently Relevant to Health Maintenance Insurance [employer] Advance Directives * Full Code (Latest Code Status on File) Date Activated Date Inactivated Comments 01/26/2022 8:37 AM 01/28/2022 4:20 PM * Full Code Date Activated Date Inactivated Comments 07/07/2021 3:58 PM 07/08/2021 4:29 PM Care Teams Freight Caller Relationship Specialty Start Date End Date None, Provider, MD PCP - General UNKNOWN PHYSICIAN SPECIALTY 06/28/24
--- OUTSIDE RECORDS SUMMARY | 2024-11-14 19:15 | XMS_ITS | Patient Health Summary ---
Author Organization [facility] Address [address] [place] [address] Care Team Providers Care Programming Director Name Role Phone Katie Kellogg MD Primary Care Provider [phone] Note from [facility],non-owned Affiliates and Associated Physician Practices is amultiple site organization consisting of ambulatory clinics and hospital sitesin [place], [place], [place] and [place]. This disclosure is being madepursuant to the Care Everywhere program and may not contain all informatio navailable regarding this patient. Last updated 18.[facility] Allergies * Clindamycin(Urticaria) * Sulfa Drugs(Urticaria) Medications * Be aware that medications may not be up to date on this document. Alwaysverify current medications with the patient. * Levonorgestrel (CRISTIAN) 13.5 MG * PREDNISONE, GHADA, PO Take 1 tablet by mouth once daily * fluconazole (DIFLUCAN) 200 MG tablet(Started 05/04/2019) Diflucan 200 mg tablet, one by mouth every other day for three doses. 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 Temperature 37.1 ??C (98.8 ??F) 11/19/2018 3:28 PM CS T Respiratory Rate 16 05/19/2018 9:50 AM CDT p er pcp Oxygen Saturation - - Inhaled Oxygen Concentration - - Weight 73.5 kg (162 lb) 05/04/2019 11:34 AM CDT Height 160 cm (5' 3 ) 05/04/2019 11:34 AM CDT Body Mass Index 28.7 05/04/2019 11:34 AM CDT Procedures * SUSCEPTIBILITY YEAST(Performed 05/04/2019) * CULTURE YEAST(Performed 05/04/2019) Performed for Vulvar itching, Vulvar burning, Subacute vulvitis * WET PREP - POINT OF CARE (AMB) [facility]U(Performed 05/04/2019) Performed for Vulvar itching, Vulvar burning, Subacute vulvitis * PH FLUID - POCT (AMB) [facility]U(Performed 05/04/2019) Performed for Vulvar itching, Vulvar burning, Subacute vulvitis * FUNGUS TRUNG - POINT OF CARE (AMB) [facility](Performed 05/04/2019) Performed for Vulvar itching, Vulvar burning, Subacute vulvitis * LAB RESULTS ORDER(Performed 06/16/2018) * CULTURE STOOL PANEL(Performed 06/09/2018) Performed for Blood in stool, Diarrhea, unspecified type, Generalized abdominal pain * C DIFFICILE TOXIN/GDH W REFLX TO PCR(Performed 06/07/2018) Performed for Blood in stool, Diarrhea, unspecified type, Generalized abdominal pain * COMPREHENSIVE METABOLIC PANEL(Performed 06/07/2018) Performed for Blood in stool, Diarrhea, unspecified type, Generalized abdominal pain * TISSUE TRANSGLUTAMINASE AB IGA(Performed 06/07/2018) Performed for Blood in stool, Diarrhea, unspecified type, Generalized abdominal pain * IGA BLOOD(Performed 06/07/2018) Performed for Blood in stool, Diarrhea, unspecified type, Generalized abdominal pain * C-REACTIVE PROTEIN(Performed 06/07/2018) Performed for Blood in stool, Diarrhea, unspecified type, Generalized abdominal pain * CBC W AUTO DIFFERENTIAL(Performed 06/07/2018) Performed for Blood in stool, Diarrhea, unspecified type, Generalized abdominal pain * COMPREHENSIVE METABOLIC PANEL(Performed 03/27/2011) Performed for Asperger's disorder (HCC), Anxiety disorder * LIPID PROFILE(Performed 03/27/2011) Performed for Asperger's disorder (HCC), Anxiety disorder * CBC W AUTO DIFFERENTIAL(Performed 03/27/2011) Performed for Asperger's disorder (HCC), Anxiety disorder * T4 FREE(Performed 03/27/2011) Performed for Asperger's disorder (HCC), Anxiety disorder * TSH(Performed 03/27/2011) Performed for Asperger's disorder (HCC), Anxiety disorder Results * SUSCEPTIBILITY YEAST (05/04/2019 12:52 PM CDT) Source VULVA Schoo Organism ID CASIE ALBICANS [facility] Amphotericin B 0.500 mcg/mL [facility] Anidulafungin 0.060 S mcg/mL [facility] Caspofungin 0.015 S mcg/mL [facility] Fluconazole 0.500 S mcg/mL [facility] 5-Flucytosine 0.500 mcg/mL [facility] Itraconazole 0.060 mcg/mL [facility] Micafungin 0.015 S mcg/mL [facility] Posaconazole 0.030 mcg/mL [facility] Voriconazole <=0.008 S mcg/mL [facility] Comment [facility] Comment: Drug concentrations are expressed in mcg/mL. S = Susceptible SD = Susceptible-Dose Dependent I = Intermediate R = Resistant Susceptible Dose Dependent (SD): susceptibility is dependent on achieving maximum blood levels. ELIZABETH interpretations are based on recently published CLSI guidelines. Only the ELIZABETH value is reported when CLSI guidelines are not available. This test was performed using a kit that has not been cleared or approved by the FDA. The analytical performance characteristics of this test have been determined by [facility]. This test should not be used for diagnosis without confirmation by other medically established means. Test Performed at: [facility] [address] [place], [place] ??[phone] Tuan DODD 05/04/2019 12:5 2 PM CDT 05/05/2019 1:37 AM CDT Radha Pfeiffer APRN-MIRROR POLISHER LAB - MICRO BIOLOGY ORDERABLES Performing Organization Address [facility] Co de Phone Number [address] [address] * (ABNORMAL) CULTURE YEAST (05/04/2019 12:52 PM CDT) Culture Yeast with ID (A) [facility] Comment: ??CULTURE, YEAST, W/IDENTIFICATION ?MICRO NUMBER: ?[id number] ??TEST STATUS: ? FINAL ??SPECIMEN SOURCE: ?? VULVA ??SPECIMEN QUALITY: ??ADEQUATE ??RESULT: ?Casie albicans Test Performed at: [facility] ??[phone] NARINDER WAKEFIELD MD Microbiology ENTIRE VULVA / Unknown 05/04/2019 12:52 PM CDT 05/05/2019 1:37 AM CDT Radha Pfeiffer APRN-[facility]ISH[facility] - MICRO BIOLOGY ORDERABLES Performing Organization Address [facility] Co de Phone Number [address] [address] * PH FLUID - POCT (AMB) [facility]U (05/04/2019) pH Vaginal 4.5 Fluid ENTIRE VAGINA / Unknown 05/04/2019 Radha Pfeiffer APRN-[facility]ISH[facility] LAB - POINT OF CARE ORDERABLES * WET PREP - POINT OF CARE (AMB) [facility] (05/04/2019) pH Wet Prep 4.5 Yeast Wet Prep n Trichomonas Wet Prep n Bacteria Wet Prep n Whiff Test n BODY FLUID SPECIMEN / Unknown 05/04/2019 Radha Pfeiffer APRN-[facility]IRR[facility] POLISH[facility] LAB - POINT OF CARE ORDERABLES * FUNGUS TRUNG - POINT OF CARE (AMB) [facility] (05/04/2019) TRUNG Prep No Fluid BODY FLUID SPECIMEN / Unknown 05/04/2019 Radha Pfeiffer APRN-[facility] POLISHER LAB - POINT OF CARE ORDERABLES * LAB RESULTS ORDER (06/16/2018 7:19 PM CDT) Narrative 06/16/2018 7:19 PM CDT Ordered by an unspecified provider. Scanned Document LAB - THERAPEUTIC DR UG MONITORING ORDERABLES * CULTURE STOOL PANEL (06/09/2018 12:43 PM CDT) EIA [facility] Comment: ??SHIGA TOXINS, EIA W/RFL TO E.COLI O157 CULTURE ?MICRO NUMBER: ?[id number] ??TEST STATUS: ? FINAL ??SPECIMEN SOURCE: ?? STOOL ??SPECIMEN QUALITY: ??ADEQUATE ??RESULT: ?Not Detected Culture [facility] Comment: ??CAMPYLOBACTER, CULTURE ?MICRO NUMBER: ?[id number] ??TEST STATUS: ? FINAL ??SPECIMEN SOURCE: ?? STOOL ??SPECIMEN QUALITY: ??ADEQUATE ??RESULT: ?No enteric Campylobacter isolated Culture [facility] Comment: ??SALMONELLA AND SHIGELLA, CULTURE ?MICRO NUMBER: ?[id number] ??TEST STATUS: ? FINAL ??SPECIMEN SOURCE: ?? STOOL ??SPECIMEN QUALITY: ??ADEQUATE ??RESULT: ?No Salmonella or Shigella isolated REPORT COMMENT: SPLIT 06/07/2018 FROM [id number] Test Performed at: [facility] ??[phone] NARINDER WAKEFIELD MD Stool STOOL SPECIMEN / Unknown 06/09/2018 12:43 PM CDT 06/10/2018 12:01 AM CDT Fidelia Kaur DIRECTOR OF FUNDRAISING-[facility]ISH[facility] - ELIZABETH ROBIOLOGY ORDERABLES Performing Organization Address [facility] Co de Phone Number [facility] [address] [place] [address] * CLOSTRIDIUM DIFFICILE TOXIN/GDH W REFLX TO PCR (06/07/2018 12:42 PM CDT) C difficile Toxin/GDH w/Reflex to PCR [facility] Comment: ??CLOSTRIDIUM DIFFICILE TOXIN/GDH W/REFL TO PCR ?MICRO NUMBER: ?[id number] ??TEST STATUS: ? FINAL ??SPECIMEN SOURCE: ?? STOOL ??SPECIMEN QUALITY: ??ADEQUATE ??GDH ANTIGEN: ? Not Detected ??TOXIN A AND B: ? Not Detected ??COMMENT: ? No toxigenic C. difficile detected ? For additional information, please refer to ? http://education.[employer]/faq/FKU440 ? (This link is being provided for ? informational/educational purposes only.) REPORT COMMENT: COLLECTION KIT GIVEN TO PATIENT. PATIENT ADVISED TO RETURN. Test Performed at: [facility] ??[id number] NARINDER WAKEFIELD MD Stool STOOL SPECIMEN / Unknown 06/07/2018 12:42 PM CDT 06/08/2018 12:35 AM CDT Fidelia Kaur DIRECTOR OF FUNDRAISING-[facility]ISH[facility] - ELIZABETH ROBIOLOGY ORDERABLES Performing Organization Address [facility] Co de Phone Number [facility] [address] [place] [address] * TISSUE TRANSGLUTAMINASE AB IGA (06/07/2018 12:39 PM CDT) TTG Antibody IgA 1 <4 U/mL [facility] Comment: ?Value ??Interpretation ?<4 U/mL: No Antibody Detected ? >or=4 U/mL: Antibody Detected Test Performed at: [facility]/[address] ?? STACI MEJIA MD,PHD Blood BLOOD SPECIMEN / Unknown 06/07/2018 12:39 PM CDT 06/08/2018 3:26 AM CDT Fidelia Kaur DIRECTOR OF FUNDRAISING-[facility] - SER OLOGY ORDERABLES Performing Organization Address [facility] de Phone Number [facility] [address] [place] [address] * C-REACTIVE PROTEIN (06/07/2018 12:39 PM CDT) Pathologist [facility] C-Reactive Protein 6.3 <8.0 mg/L [facility] Comment: Test Performed at: [facility] [address] ??[phone] STEPHANI RICHARDSON DO,MPH Blood BLOOD SPECIMEN / Unknown 06/07/2018 12:39 PM CDT 06/08/2018 3:26 AM CDT Fidelia Kaur DIRECTOR OF FUNDRAISING-[facility]ISH[facility] - CARMEN PATRICIA ORDERABLES Performing Organization Address [facility] de Phone Number [facility] [address] [place] [address] * (ABNORMAL) CBC W AUTO DIFFERENTIAL (06/07/2018 12:39 PM CDT) Only the most recent of2 resultswithin the time period is included. Pathologist [facility] White Blood Cell Count 6.1 4.5 - [...] 0.5 % [facility] Comment: Test Performed at: [facility] [address] [place] ??[phone] STEPHANI RICHARDSON DO,MPH Blood BLOOD SPECIMEN / Unknown 06/07/2018 12:39 PM CDT 06/08/2018 3:26 AM CDT Fidelia Kaur DIRECTOR OF FUNDRAISING-[facility] - HEM ATOLOGY ORDERABLES [facility] [address] [place] [address] * COMPREHENSIVE METABOLIC PANEL (06/07/2018 12:39 PM CDT) Only the most recent of2 resultswithin the time period is included. Glucose 92 65 - 99 mg/dL [facility] [...] 32 U/L [facility] Comment: Test Performed at: [facility] [place] ??[address] STEPHANI RICHARDSON DO,MPH Blood BLOOD SPECIMEN / Unknown 06/07/2018 12:39 PM CDT 06/08/2018 3:26 AM CDT Fidelia Kaur APRN-[facility]IRR[facility] - CARMEN PATRICIA ORDERABLES Performing Organization Address [facility] Co de Phone Number [facility] [address] [place] [address] * IGA BLOOD (06/07/2018 12:39 PM CDT) IgA 89 81 - 463 mg/dL [facility] Comment: Test Performed at: [facility] [address] [place], [place] ??[address] STEPHANI RICHARDSON DO,MPH Blood BLOOD SPECIMEN / Unknown 06/07/2018 12:39 PM CDT 06/08/2018 3:26 AM CDT Fidelia Kaur APRN-[facility] - CARMEN PATRICIA ORDERABLES Performing Organization Address [facility] Co de Phone Number [facility] [id number] [place] [address] * TSH (03/27/2011 12:15 PM CDT) TSH 2.111 0.490 - 4.670 mcIU/mL [facility] BLOOD SPECIMEN / Unknown 03/27/2011 12:15 PM CDT 03/27/2011 12:23 PM CDT Nicolette Santaan MD LAB - CHEMISTRY [place] Performing Organization Address City/[facility]/ZIP Co de Phone Number [facility] [address] [place] [address] * T4 FREE (03/27/2011 12:15 PM CDT) T4 Free 0.9 0.71 - 1.85 ng/dl [facility] BLOOD SPECIMEN / Unknown 03/27/2011 12:15 PM CDT 03/27/2011 12:23 PM CDT Nicolette Santana MD LAB - CHEMISTRY [place] Performing Organization Address [facility]/ZIP Co de Phone Number [facility] [address] [place] [address] * (ABNORMAL) LIPID PROFILE (03/27/2011 12:15 PM CDT) Cholesterol 157 < 200 mg/dl mg/dl [facility] Triglycerides 167(H) < 150 mg/dl mg/dl [facility] HDL Cholesterol 52 > 40 mg/dl mg/dl [facility] LDL Calculated 72 < 100 mg/dl mg/dl [facility] Chol HDL Ratio 3.0 [facility] Comment Lipid Reference Ranges provided by [employer]. [facility] BLOOD SPECIMEN / Unknown 03/27/2011 12:15 PM CDT 03/27/2011 12:23 PM CDT Nicolette Santana MD LAB - CHEMISTRY SOC[place]RO L[place]NNETTEADILSON Performing Organization Address City/[facility]/ZIP Co de Phone Number [facility] [address] [place] [address] Care Teams Programming Director Relationship Specialty Start Date End Date Katie Kellogg MD [facility] [place] [address] PCP - General 05/31/18
--- OUTSIDE RECORDS SUMMARY | 2024-11-14 19:15 | XMS_ITS | Encounter Summary ---
Author Organization [facility] Address [address] [place] [address] Care Team Providers Care Junior Net Developer Name Role Phone Katie Kellogg MD Primary Care Provider [phone] Encounter Details Date Type Department Care Team (Late st Contact Info) Description 05/04/2019 Orders Only [facility] [address] [place] [address] Radha Pfeiffer, [facility] [employer] [address] [address] Social History Tobacco Use Types Packs/Day Years Used Date Smoking Tobacco: Never Smokeless Tobacco: Never Alcohol Use Standard Drinks/Week Comments No 0 (1 standard drink = 0.6 oz pur e alcohol) Sex and Gender Information Value Date Recorded Sex Assigned at Not on file Gender Identity Not on file Sexual Orientation Not on file documented as of this encounter Plan of Treatment Not on file documented as of this encounter Procedures Procedure Name Priority Date/Time Associated Diagnosis Comments SUSCEPTIBILITY YEAST 05/04/2019 12:52 PM CDT documented in this encounter Results * SUSCEPTIBILITY YEAST (05/04/2019 12:52 PM CDT) Source VULVA [facility] Organism ID SANCHEZ ALBICANS [facility] Amphotericin B 0.500 mcg/mL [facility] [...] of this test have been determined by [facility]. This test should not be used for diagnosis without confirmation by other medically established means. Test Performed at: [facility] [address] [place] [address] ??[phone] Tuan DODD 05/04/2019 12:5 2 PM CDT 05/05/2019 1:37 AM CDT Radha Pfeiffer APRN-MIXER FOAM RUBBER LAB - MICRO BIOLOGY ORDERABLES Performing Organization Address City/State/[facility] Co de Phone Number [facility] [address] [place] [address] documented in this encounter Visit Diagnoses Not on filedocumented in this encounter Care Teams Junior Net Developer Relationship Specialty Start Date End Date Katie Kellogg MD [address] [place] [address] PCP - General 05/31/18 documented as of this encounter
--- OUTSIDE RECORDS SUMMARY | 2024-11-14 19:15 | XMS_ITS | Encounter Summary ---
Author Organization [facility] Address [address] [place] [address] Care Team Providers Care Clearance Rep Name Role Phone Katie Kellogg MD Primary Care Provider [phone] Reason for Visit * Reason Comments Headache Has not had a migrai ne lately, but continues to have regular headaches daily. Hurts between her eyes and her neck also hurts. Takes ibuprofen for regular headaches, but it only works some of the time. Missing school because of headaches, approx 15 - 20 days. Encounter Details Date Type Department Care Team (Latest Contact Info) Description 02/25/2017 12:51 PM CDT - 02/25/2017 11:59 PM CDT Hospital Encounter [facility] - Neurology [address] [place] [address] Rissa Keys MD [address] [place] [id number] Discharge Disposition: Home or Self Care Social History Tobacco Use Types Packs/Day Years Used Date Smoking Tobacco: Never Sex and Gender Information Value Date Recorded Sex Assigned at Not on file Gender Identity Not on file Sexual Orientation Not on file documented as of this encounter Last Filed Vital Signs Vital Sign Reading Time Taken Comments Blood Pressure 106/58 02/25/2017 1:00 PM CDT Pulse - - Temperature - - Respiratory Rate - - Oxygen Saturation - - Inhaled Oxygen Concentration - - Weight 59 kg (130 lb 1.1 oz) 02/25/2017 1:00 PM CDT Height 159.7 cm (5' 2.87 ) 02/25/2017 1:00 PM CD T Body Mass Index 23.13 02/25/2017 1:00 PM CDT Body Mass Index Percentile 76.10% 02/25/2017 1:0 0 PM CDT Growth Chart: [facility] (Girls, 2- 20 Years) documented in this encounter Discharge Instructions * Patient Instructions* Rissa Keys MD - 02/25/2017 2:33 PM CDT Chronic daily headache Prior migraines have improved but recent headaches are more of a tension type and likely related tomultiple lifestyle issues, school related stressors increased environmental [...] for worsening headaches or other neurological concerns. documented in this encounter Medications at Time of Discharge Medication Sig Dispensed Refills Start Date End Date naproxen (NAPROSYN) 500 MG tabletIndications:Chron ic daily headache Take 1 Tab by mouth 2 times daily as needed for Pain (moderate-severe headaches only) 12 Tab 2 02/25/2017 05/29/2018 sertraline (ZOLOFT) 25 MG tablet Take 25 mg by mouth once daily 05/04/2019 SUMAtriptan (IMITREX) 25 MG tablet Take 25 mg by mouth as needed 0 11/21/2016 05/04/2019 documented as of this encounter Progress Notes * Rissa Keys MD - 02/25/2017 2:25 PM CDT Pediatric Neurology Daily Progress Note 02/25/2017 History: Angela Peterson is a 16 y.o. year old female with Aspergers who presents today for evaluation of headaches. Patient had migraines previously once every 1-2 weeks and was missing school for most of these migraines. Patient's migraines have a visual aura, nausea and vomiting, are unilateral, have a stabbing quality, and have dizziness associated. Imitrex 25 mg and sleep at the onset of migraine seem to help resolve them. No migraines since 01/16/17, but has had a chronic daily headache since then. On 01/18/17 patient had Mirena inserted and had emotional difficulties associated including suicidal thoughts. While Mirena was in place (mid January) patient was started on Zoloft, currently on Z oloft 25 mg. Mirena was removed 2 weeks after insertion and emotional complications resolved within2 days. Headaches are now occurring daily but are not constant. They vary in pain up to 6/10 pain, she is currently at a 2/10. Pain is relieved by ibuprofen, patient was taking 3 tablets approximately every other day for headaches over the last month, but has not taken any in the last week. Made worse by strong smells. Other symptoms associated with headaches are dizziness upon standing. Good hydration. Diet-patient does not eat lunch at school because it is nasty . At least 1 caffeinated beverage/day. Difficulty falling asleep, especially since starting Zoloft, additionally wakes up for ~20 minutes during the night, and feels tired during the day, with little to no snoring and patient hascut down on daytime napping. Currently in grade 10 th in a mixture of regular and special classes and has an IEP in place, patient is not keeping up in all classes. Many stressors in play, including school, emotional, etc. 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 These have ended relationships and prevents the family from having family dinners for the last two years. Additionally the patient states that everyone bothers her and patient's mother states that Angela has a hard time dealing with people. Patient sees a counselor once a week outside of school and a delinquency prevention social worker at school. Physical Exam: BP 106/58 Ht 1.597 m (5' 2.87 ) Wt 59 kg (130 lb 1.1 oz) BMI 23.13 kg/m2 Wt %ile: 63.38% Ht %ile: 32.51% Exam: General appearance: alert, well appearing, and in no distress but does appear nervous/anxious Significant neck tightness and tension upon palpation. Neuro: Mental Status: Awake, alert, appropriate Cranial Nerves: II: Visual allison intact III:PERRL III,IV,: EOMI with no nystagmus or ptosis V: Facial sensation intact and symmetric VII: Facial expressions symmetric VIII: Hearing intact to finger rub bilaterally IX: Palate elevates symmetrically X: Uvula midline XI: Shoulder shrug strong bilaterally, SCM strong bilateraly XII: Tongue protrudes midline Motor: Abnormal Movements: none Bulk: normal Tone: normal Strength: Appropriate for Age RUE 5/5 LUE 5/5 RLE 5/5 LLE 5/5 DTR: Bi Tri BR Pat Ach Toes R 2 2 2 2 2 Down L 2 2 2 2 2 Down Sensory: Intact to light touch, Romberg: Negative Cerebellar: FNF, YELITZA intact bilaterally Gait: Normal toe/heel/tandem walk Labs: No results found for this or any previous visit (from the past 24 hour(s)). Assessment: Angela is a 16 y.o. female with Aspergers presenting with improvement in prior migraines but recent headaches of more of a tension type. These are likely related to multiple lifestyle issues, school related stressors, increased environmental sensitivities, and neck tightness. Besides neck tightness,nothing abnormal noted on exam. Plan: 1. Keep headache diary 2. Maintain active lifestyle 3. Eat healthy, do not skip meals 4. Drink plenty of water, avoid regular caffeine use 5. Sleep: trial of Melatonin 1-3 mg in the evening to improve sleep onset, maintain good sleep routine, avoid distractions (ex. TV, computer) at bedtime, get at least 8-10 hours of sleep nightly 6. Do not use pain medication (ex. Tylenol, Ibuprofen) more than 2-3 times/week to avoid medicationoveruse headaches 7. Comfort measures, relaxation techniques, etc. To address milder headaches 9. Refer to physical therapy for neck tightness 10. Continue seeing counselor to address stressors which are triggers for headaches 11. Call for worsening headaches or other neurological concerns Carlyn Cook , Physician Hand Spray Operator Student Patient examined and plan discussed with Dr. Keys, Attending Physician for Child Neurology. Peds Neuro Attending Note COLT: 02.25.2017 Pt seen and examined with PA student Ms Cook - please see above note for details. Agree with note/plan as above. Pt is a 16 y/o brought by mom (historian) for re evaluation of her chronic headaches- I last saw her here about a couple of years ago. She has had headaches for many years - more of a migraine type -bifrontal, associated with nausea, photo and phonophobia. She has tried analgesics including Sumatriptan that help usually with those headaches. She however, for the past 1-2 months has had a different headache which is low grade daily but not affecting her function much. Mom thinks that she has been under many stresses recently which are causing this headaches,. She has not had her usual migraine in over a month. She does become pain free at times when she tries to relax etc. She underwent Miren implantation after which the headache started but she also had significant emotional disturbances. She was also initiated on Sertraline by PCP for ongoing mood issues - she was initially started titi higher dose but that cause sleep disturbances, so the dose has been reduced and the sleep has slightly improved but she does have trouble falling asleep. She has other lifestyle issues such as diet, poor hydration etc. She has had increasing sound sensitivities which are impacting her staying in the classroom etc. This is also interfering socially. Headaches are not triggered by movement, bending over, valsalva etc. No changes to vision, hearing,balance, coordination etc. PMH: no prior h.o concussions recently, no seizures. Social history: Lives at home with parents and siblings. She is in 10 th grade. /developmental history: born at term after uncomplicated dn delivery. Normal milestones. F/H: h/o migraines in mom. Physical examination: BP 106/58 Ht 1.597 m (5' 2.87 ) Wt 59 kg (130 lb 1.1 oz) BMI 23.13 kg/m2 Wt Readings from Last 3 Encounters: 02/25/17 59 kg (130 lb 1.1 oz) (68 %, Z= 0.48)* 01/04/17 60.6 kg (133 lb 8 oz) (73 %, Z= 0.63)* 06/01/14 51.1 kg (112 lb 11.2 oz) (64 %, Z= 0.36)* * Growth percentiles are based on CDC 2-20 Years data. Ht Readings from Last 3 Encounters: 02/25/17 1.597 m (5' 2.87 ) (33 %, Z= -0.45)* 06/01/14 1.52 m (4' 11.84 ) (15 %, Z= -1.02)* 03/27/11 1.334 m (4' 4.5 ) (18 %, Z= -0.90)* * Growth percentiles are based on CDC 2-20 Years data. Body mass index is 23.13 kg/(m^2). 76 %ile (Z= 0.71) based on CDC 2-20 Years BMI-for-age data using vitals from 02/25/2017. 68 %ile (Z= 0.48) based on CDC 2-20 Years [id number] data using vitals from 02/25/2017. 33 %ile (Z= -0.45) based on CDC 2-20 Years [id number] data using vitals from 02/25/2017. She is alert, fidgety,. Cooperative, needs some redirection. Normal CN (incl sharp flat discs b/l),motor, DTR's, coordination and gait. Able to tandem well. Has neck tightness with limitation with extreme ROM. No paraesthesias with neck flexion/extension. Assessment: ICD-10-CM 1. Chronic daily headache R51 Terri referral to Physical Therapy naproxen (NAPROSYN) 500 MG tablet Plan: Chronic daily headache Prior migraines have improved but recent headaches are more of a tension type and likely related tomultiple lifestyle issues, school related stressors increased environmental [...] for worsening headaches or other neurological concerns. Follow up: 6 months Education: headaches 60 minutes spent with pt/mom with 5-% time in discussion, counseling, management of pt's headaches. documented in this encounter Plan of Treatment Not on file documented as of this encounter Visit Diagnoses Diagnosis Chronic daily headache- Primary Headache * Assessment & Plan Note - Rissa Keys MD - 02/25/2017 2:25 PM CDTAssociated Problem(s): Chronic daily headache Prior migraines have improved but recent headaches are more of a tension type and likely related tomultiple lifestyle issues, school related stressors increased environmental [...] for worsening headaches or other neurological concerns. documented in this encounter Care Teams Clearance Rep Relationship Specialty Start Date End Date Katie Kellogg MD [address] [place] [address] PCP - General Pediatrics 01/15/17 02/23/18 documented as of this encounter
--- OUTSIDE RECORDS SUMMARY | 2024-11-14 19:15 | XMS_ITS | Encounter Summary ---
Author Organization [facility] Address [address] [place] [address] Care Team Providers Care Body Care Manager Name Role Phone Katie Kellogg MD Primary Care Provider [phone] Reason for Visit * Reason Comments Injury Wrist right wrist injury Encounter Details Date Type Department Care Team (Latest Contact Info) Description 03/30/2014 11:15 AM CDT - 03/30/2014 11:59 PM CDT Hospital Encounter [facility] [address] [facility] [place] [address] Bobby Wren PA-C [facility] [place] [address] Discharge Disposition: Home or Self Care Social History Tobacco Use Types Packs/Day Years Used Date Smoking Tobacco: Never Assessed Sex and Gender Information Value Date Recorded Sex Assigned at Not on file Gender Identity Not on file Sexual Orientation Not on file documented as of this encounter Medications at Time of Discharge Medication Sig Dispensed Refills Start Date End Date Acetaminophen (TYLENOL PO) Take by mouth as needed. 04/20/2014 documented as of this encounter Progress Notes * Silvia Wong - 03/30/2014 1:05 PM CDT Applied SAC right waterproof Cast Care instructions given to patient and family. They acknowledged understanding. * Bobby Wren PA-C - 03/30/2014 12:40 PM CDT PEDIATRIC ORTHOPAEDIC CLINIC NOTE NAME: Angela Peterson DATE OF SERVICE: 03/30/2014 DATE: 2000 PCP: Katie Kellogg HISTORY: Angela Peterson is a 13 y.o. 3 m.o. female who presents 3 day(s) status post a right wrist injury. She reportedly fell and landed on the right arm. Angela Peterson was splinted at an outside hospital and presents for further evaluation. They had an appointment for 04/01/14, however showed up early today with concerns about her current splint. They state that she has sensory issues, and is having a hard time tolerating the current splint. The patient rates her pain as a 0 out of 10. The patient denies new onset of numbness in her upper extremities. PAST MEDICAL HISTORY: Past Medical History Diagnosis Date ??? Asperger's disorder PAST SURGICAL HISTORY: Past Surgical History Procedure Date ??? Myringotomy with tube insertion ??? Tonsillectomy ??? Pr tear duct system surg unlisted ??? Pr eye muscle surg proc unlisted ??? Pr hand/finger surgery unlisted MEDICATIONS: Current outpatient prescriptions:Acetaminophen (TYLENOL PO), Take by mouth as needed.,Disp: , Rfl: ALLERGIES: Allergies as of 03/30/2014 - reviewed 03/30/2014 Allergen Reaction Noted ??? Clindamycin Urticaria 03/27/2011 ??? Sulfa drugs Urticaria 03/27/2011 IMMUNIZATIONS: Immunization status: stated as current, but no records available. SOCIAL HISTORY: Patient lives with her parents. she does attend school. FAMILY HISTORY: Negative for any genetic conditions affecting children. ROS: A 12 point review of systems was obtained today and is positive for what is stated above. PHYSICAL EXAMINATION: General appearance: alert, cooperative, no [...] performed out of splint/cast Skin: normal Swelling: minimal at wrist Tenderness: not assessed at wrist today, nontender throughout remainder of right upper extremity. Deformity: No ROM: limited by pain at wrist, normal forearm and elbow motion Strength: limited by pain Gait: normal Neurological Exam: normal Vascular Exam: normal RADIOGRAPHS: AP and lateral xrays of the right wrist were taken on 03/27/14 and assessed today. -Radiographic Assessment: They show a subtle nondisplaced distal radius buckle fracture. ASSESSMENT: right distal radius buckle fracture PLAN: We discussed the nature and stability of her fracture and recommend the patient go into a velcro wrist splint today, which would allow her to remove it at home if she is having sensory issues, and needs to come out of it for a bit. Her family strongly prefers a short arm cast, and one was applied today. The patient tolerated this well. Cast care and fracture precautions were reviewed today.The patient will stay out of PE/sports until further notice. The patient will follow up in 3 week(s) for cast removal and examination. If she has any residual tenderness at that time we will transition her to a velcro splint. They will call in the interim with questions or concerns. * Silvia Wong - 03/30/2014 11:30 AM CDT Pt here for right wrist injury. Pt fell on right hand hyperflexed 3 days ago. Pt was seen at OSH and had xrays done. Pt was placed into a splint and referred here. Pt states that she had a lot of pain last night that she couldn't sleep much. She is not having pain right now. She took Tylenol and does not help pain. documented in this encounter Miscellaneous Notes * Miscellaneous Scans - Document, Scanned - 04/07/2014 1:43 AM CDT documented in this encounter Plan of Treatment Not on file documented as of this encounter Visit Diagnoses Diagnosis Other closed fractures of distal end of radius (alone)- Primary documented in this encounter Care Teams Body Care Manager Relationship Specialty Start Date End Date Katie Kellogg MD [address] [place] [address] PCP - General 01/01/11 04/15/14 documented as of this encounter
--- OUTSIDE RECORDS SUMMARY | 2024-11-14 19:15 | XMS_ITS | Encounter Summary ---
Author Organization [facility] Address [address] [place] [address]. [place], [place] [address] [place] [address] Care Team Providers Care Vice President Of Human Resources Name Role Phone Fiona Parkinson MD Primary Care Pr ovider Unavailable Encounter Details Date Type Department Care Team (Late st Contact Info) Description 01/24/2023 9:16 AM CDT - 01/24/2023 11:59 PM CDT Hospital Encounter [facility] [address] [place] [address] Fiona Parkinson MD Discharge Disposition: Home or Self Care (Routine [...] R N Active documented in this encounter Medications at Time of Discharge Medication Sig Dispense Quantity Refills Last Filled Start D ate End Date albuterol sulfate HFA 108 (90 Base) MCG/ACT inhaler 10/06/2022 03/21/2024 documented as of this encounter Plan of Treatment Not on file documented as of this encounter Procedures Procedure Name Priority Date/Time Associated Diagnosis Comments HUMAN PAPILLOMAVIRUS, HIGH-RISK TYPES Routine 01/24/2023 12:00 PM CDT CYTOPATH CERV/VAG THIN LAYER Routine 01/24/2023 8:02 AM CDT documented in this encounter Results * (ABNORMAL) HUMAN PAPILLOMAVIRUS, HIGH-RISK TYPES (01/24/2023 12:00 PM CDT) SPEC DESCRIPTION CERVICAL/ ENDOCERVI LATIA 01/31/2023 8:01 AM CDT [facility] HPV DNA HIGH RISK POSITIVE( A) NEGATIVE 02/01/2023 5:16 PM CDT [facility] Comment:SEE CYTOLOGY REPORT 01/24/2023 12:0 0 PM CDT us Fiona Parkinson MD PATHOLOGY/CYTOLO GY ORDERABLES Final Result [facility] (D) [facility] [address] [place] [address], * Cytopath Cerv/Vag Thin Layer (01/24/2023 8:02 AM CDT) THIN PREP PAP ? [facility] ?[address] ?[place] [address] ? Department of Pathology ? Pathology Report ? CERVICAL/VAGINAL PAP SMEAR REPORT Name: ANGELA KIRKLAND ? Age: 2 2000 (Age: 22) ?Location: [facility] Sex: F ?Collected Date: 01/24/2023 [facility] #: [id number] ?Date Received: 01/28/2023 Date Reported: 02/04/2023 Provider: [...] Out ? Itzel Garcia M.D. Nettie Kwong, CT (ASCP) CLINICAL HISTORY Z00.00 R87.610 ?? R87.810 [...] not effective in detecting cervical adenocarcinoma. [facility] 01/24/2023 8:02 AM CDT 01/28/2023 8:02 AM CDT Comment:CERVICAL/ENDOCERVICA L Fiona Parkinson MD PATHOLOGY/CYTOLO GY ORDERABLES Final Result [facility] 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
--- OUTSIDE RECORDS SUMMARY | 2024-11-14 19:15 | XMS_ITS | Encounter Summary ---
Author Organization [facility] Address [address] [place] [address]. [place], [place] [address] [place] [address] Care Team Providers Care Optomechanical Technician Name Role Phone Fiona Parkinson MD Primary Care Pr ovider Unavailable Jovanny Suazo MD Primary Care Provider [phone] None, Provider Primary Care Provider Unavaila ble Encounter Details Date Type Department Care Team (Late st Contact Info) Description 02/01/2023 MyChart Message Enc [facility] Multispecialty Care - [address] [place] [address] Fiona Parkinson MD Question regarding HUMAN PAPILLOMAVIRUS, HIGH-RISK TYPES Social History Tobacco Use Types Packs/Day Years [...] Depression Total Score: 14 022 1:17 PM [employer]AKER [employer] documented as of this encounter Care Teams Optomechanical Technician Relationship Specialty Start Date End Date Fiona Parkinson MD PCP - General FAMILY PRACTICE 10/08/22 04/14/23 Jovanny Suazo MD [address] [address] PCP - General INTERNAL MEDICINE 04/15/23 06/27/24 None, ProviderMD PCP - General UNKNOWN PHYSICIAN SPECIALTY 06/28/24 documented as of this encounter
--- OUTSIDE RECORDS SUMMARY | 2024-11-14 19:15 | XMS_ITS | Encounter Summary ---
Author Organization [facility] Address [address] [place] [address]. [place] [address] [place] [address] Care Team Providers Care Client Experience Specialist Name Role Phone Jovanny Suazo MD Primary Care Provider Reason for Referral * Imaging (Emergency) - New Request Specialty Diagnoses / Procedures Referred By Rebekah t Referred To Contact RADIOLOGY Procedures CT ABD+PEL W IV CON ONLY Derian Sorenson MD 1 [place] [address] Phone: tel: fax: Referral ID Status Reason Start Date Expiration Date V isits Requested Visits Authorized [id number] New Request 05/24/2024 05/24/2025 1 1 Reason for Visit * Reason Comments Abdominal Pain Encounter Details Date Type Department Care Team (Late st Contact Info) Description 05/24/2024 6:51 PM CDT - 05/24/2024 10:36 PM CDT Emergency [facility] Emergency Room [id number] [place] [id number] Derian Sorenson MD [address] [place], [place] [id number] Abdominal Pain Discharge Disposition: Transfer to Acute Care Hospital Social History Tobacco Use Types Packs/Day Years [...] Sign Reading Time Taken Comments Blood Pressure 114/59 05/24/2024 10:14 PM CDT Pulse 73 05/24/2024 10:14 PM CDT Temperature 36.8 ??C (98.3 ??F) 05/24/2024 10:14 PM C DT Respiratory Rate 18 05/24/2024 10:14 PM CDT Oxygen Saturation 97% 05/24/2024 10:14 PM CDT Inhaled Oxygen Concentration - - Weight 76.7 kg (169 lb) 05/24/2024 6:51 PM CDT Height 160 cm (5' 3 ) 05/24/2024 6:51 PM CDT Body Mass Index 29.94 05/24/2024 6:51 PM CDT documented in this encounter Functional [...] * Discharge Instructions* Derian Sorenson MD - 05/24/2024 8:54 PM CDT Please go directly to [facility] in [place] and let them know at the registration desk that you have been transferred from [place] for an ultrasound. documented in this encounter ED Notes * Derian Sorenson MD - 05/24/2024 8:23 PM CDT Chief Complaint Chief Complaint Patient presents with Abdominal Pain History of Present Illness 23-year-old female with a history of recurrent left pelvic pain that occurs approximately every other month during her menstrual period. She began having pain at 5 PM this evening. Her period is otherwise normal timing. She denies any changes from her normal pattern of vaginal symptoms during her normal periods. She has no fevers or chills. No flank pain. No dysuria. Patient does endorse some nausea but she believes this is due to the intensity of her pain. Medical History ALLERGIES: Review of patient's allergies [...] Review of Systems Physical Exam Filed Vitals: 05/24/24 1851 05/24/241999 BP: (!) 146/100 122/70 Pulse: 76 75 Resp: 18 18 Temp: 98.7 ??F (37.1 ??C) TempSrc: Temporal SpO2: 98% 99% Weight: 76.7 kg (169 lb) Height: 1.6 m (5' 3 ) Physical [...] is no distension. Palpations: Abdomen is soft. Comments: There is some tenderness to palpation in her left lower quadrant left pelvis. Positive bowel sounds. Remainder of the abdomen is benign. Musculoskeletal: General: No deformity. Normal range of [...] for this visit on 05/24/24. LABORATORY STUDIES: Results for orders placed or performed during the hospital encounter of 05/24/24 Urinalysis, Auto, Complete Result Value Ref Range COLOR (U) YELLOW TRANSPARENCY HAZY SPECIFIC GRAVITY (U) 1.020 1.000 - 1.030 U PH 8.0 5.0 - 9.0 LEUKOCYTES (U) NEGATIVE NEGATIVE NITRITES NEGATIVE NEGATIVE PROTEIN RANDOM (U) NEGATIVE NEGATIVE GLUCOSE (U) NEGATIVE NEGATIVE KETONES (U) NEGATIVE NEGATIVE BILIRUBIN (U) NEGATIVE NEGATIVE BLOOD (U) 3+ (A) NEGATIVE WBC/HPF NONE SEEN 0 - 5 /HPF RBC/HPF 0-5 0 - 5 /HPF EPI/HPF FEW /HPF CRYSTALS (U) RARE /HPF TEST URINE Result Value Ref Range URINE HCG TEST NEGATIVE NEGATIVE CBC W/DIFF AUTOMATED Result Value Ref Range WBC 8.50 4.4 - 11.0 x10'3/uL RBC 4.60 4.50 - 5.10 x10'6/uL HGB 13.5 12.3 - 15.3 G/DL HCT 41.0 35.9 - 44.6 % MCV 89.1 80.0 - 96.0 FL MCH 29.3 25.3 - 30.9 PG MCHC 32.9 31.0 - 34.1 G/DL RDW 13.3 12.4 - 15.1 % PLT 191 151 - 353 x10'3/uL MPV 12.8 (H) 9.6 - 12.0 FL RBC MORPHOLOGY NORMAL PLT MORPH. NORMAL WBC MORPHOLOGY NORMAL LYMPHOCYTES 14.8 (L) 15.8 - 45.0 % NEUTROPHILS 79.4 (H) 42.1 - 71.9 % MONOCYTES 4.8 (L) 5.7 - 12.5 % EOSINOPHILS 0.1 0.0 - 5.6 % BASOPHILS 0.5 0.0 - 1.3 % ABS. NEUTROPHILS 6.75 (H) 1.40 - 6.00 x10'3/uL IMMATURE GRANS 0.4 0.0 - 0.5 % ABS. LYMPHOCYTES 1.26 0.80 - 4.70 x10'3/uL COMPREHENSIVE METABOLIC PANEL Result Value Ref Range GLUCOSE 127 (H) 70 - 99 MG/DL BUN 13 7 - 18 MG/DL CREATININE S/P/B 0.70 0.55 - 1.02 MG/DL SODIUM S/P/B 144 136 - 145 MMOL/L POTASSIUM S/P/B 3.7 3.5 - 5.1 MMOL/L CHLORIDE S/P/B 107 100 - 108 MMOL/L CO2 26.7 21 - 32 MMOL/L CALCIUM S/P/B 9.2 8.5 - 10.1 MG/DL BILIRUBIN TOTAL S/P/B 0.2 0.2 - 1.2 MG/DL TOTAL PROTEIN S/P/B 7.3 6.4 - 8.2 G/DL ALBUMIN S/P/B 4.0 3.4 - 5.0 G/DL AST 11 (L) 15 - 37 U/L ALT 11 (L) 14 - 55 U/L ALKALINE PHOSPHATASE S/P/B 56 50 - 136 U/L ANION GAP 10.3 5 - 15 MMOL/L BUN CREATININE RATIO 18.6 6 - 26 A/G RATIO 1.2 1.0 - 2.0 RATIO GFR ESTIMATE >90 >90 ML/MIN/1.[address] ABD+PEL W IV CON ONLY Final Result by User, [id number] (05/24 2010) EXAMINATION: CT ABD+PEL W CON CLINICAL HISTORY: Abdominal pain COMPARISON: 03/21/2024 DATE/TIME: 05/24/2024 7:50 PM TECHNIQUE: Multiplanar CT images of the abdomen and pelvis were obtained. IV contrast: uneventful intravenous administration of 75 mL Isovue 370. Oral contrast: None. A dose lowering technique was used for this procedure, which may include, but is not limited to, dose reduction technique, automated exposure control, the use of iterative reconstruction, and ALARA (As Low As Reasonably Achievable) / Image Gently techniques. FINDINGS: Liver is negative. Gallbladder is negative. Bile ducts are negative. Pancreas is negative. Spleen is negative. Adrenal glands are negative. Kidneys are negative. Bladder is decompressed and not well evaluated. Uterus is retroverted but otherwise unremarkable. Calcified pelvic phleboliths. No ovarian mass or cystic lesion. Abdominal aorta is normal caliber. Trace free pelvic fluid. No free air. No bowel obstruction or bowel wall thickening. No evidence of appendicitis. No evidence of diverticulosis or diverticulitis. No acute osseous abnormality. IMPRESSION: 1. No acute abnormality identified. 2. Trace free pelvic fluid. Referred By: Interpreted By: Rui Garrido MD, 05/24/2024 7:55 PM ED Course / Medical Decision Making Medical Decision Making 23-year-old female with a history of recurrent left pelvic pain that occurs approximately every other month during her menstrual period. She began having pain at 5 PM this evening. Her period is otherwise normal timing. She denies any changes from her normal pattern of vaginal symptoms during her normal periods. She has no fevers or chills. No flank pain. No dysuria. Patient does endorse some nausea but she believes this is due to the intensity of her pain. Patient vital signs are stable. She is afebrile. Abdomen is somewhat tender in the left lower quadrant/left pelvis. The remainder the abdomen is benign. CT was obtained and noted no acute abnormality but did note trace free fluid in the pelvis. CBC and CMP were unremarkable. hCG was negative. Urine was positive for only 3+ blood consistent with menstrual period. Pelvic exam was performed with swabs obtained. Pelvic exam was performedand was not noted to have a specific cervical motion tenderness. No obvious discharge. Swabs were obtained and sent to lab. Given the nonspecific workup here and the patient's degree of pain the patient will require an ultrasound to rule out torsion as there are no specific diagnostic findings to explain the symptoms. No ultrasound is available at this facility. I discussed the case with Dr. Deluna at [facility] ED who accepted the patient for transfer by private vehicle. Problems Addressed: Pelvic pain: acute illness or injury Amount and/or Complexity of Data Reviewed Labs: ordered. Decision-making details documented in ED Course. Radiology: ordered. Risk OTC drugs. Prescription drug management. Clinical Impression Pelvic pain (Primary) Disposition: Transfer to Another Facility Derian Sorenson MD 05/24/242107 * Chantal Perkins RN - 05/24/2024 6:53 PM CDT Abdominal pain since 1700 that was sudden onset. Has painful urination thinks it might be an ovarian cyst that she has had in the past documented in this encounter Plan of Treatment Not on file documented as of this encounter Procedures Procedure Name Priority Date/Time Associated Diagnosis Comments CHLAMYDIA GC RNA STAT 05/24/2024 8:40 PM CDT TRICHOMONAS ANTIGEN STAT 05/24/2024 8 :40 PM CDT SMEAR, STAIN, WET PREP STAT 8:[address] ABD+PEL W CON STAT 05/24/2024 7:51 PM CDT TEST URINE STAT 05/24/2024 7:07 PM CDT URINALYSIS, AUTO, COMPLETE STAT 05/24/2024 7:07 PM CDT COMPREHENSIVE METABOLIC PANEL STAT 05/24/2024 6:54 PM CDT CBC W/DIFF AUTOMATED STAT 05/24/2024 6:54 PM CDT documented in this encounter Results * TRICHOMONAS ANTIGEN (05/24/2024 8:40 PM CDT) TRICHOMONAS NEGATIVE 05/25/2024 11:44 AM CDT [facility] CERVIX UTERI STRUCTURE / Unknown 05/24/2024 8:40 PM CDT Derian Sorenson MD MICROBIOLOGY - GENERAL ORD ERABLES Final Result [facility] [address] [place] [id number], [place] [phone] * SMEAR, STAIN, WET PREP (05/24/2024 8:40 PM CDT) SPEC DESCRIPTION VAGINAL SPECIMEN 05/24/2024 8:43 PM CDT [facility] SPECIAL REQUESTS NO SPECIAL REQUEST 05/24/2024 8:43 PM CDT [facility] DIRECT EXAM MOTILE TRICH SEEN 05/26/2024 12:59 AM CDT [facility] VAGINAL STRUCTURE / Unknown 05/24/2024 8:40 PM CDT 05/24/2024 8:59 PM CDT us Derian Sorenson MD MICROBIOLOGY - GENERAL ORD ERABLES Final Result [facility] [address] [place] [address], * CHLAMYDIA GC RNA (05/24/2024 8:40 PM CDT) SPECIMEN SOURCE CERVIX 8:43 PM CDT [facility] CHLAMYDIA PCR NEGATIVE NEGATIVE 05/27/2024 1:32 AM CDT [facility] Comment:PERFORMED BY NUCLEIC ACID AMPLIFICATION N.GONORRHOEAE RNA TMA NEGATIVE NEGATIVE 05/27/2024 1:32 AM CDT [facility] Comment:PERFORMED BY NUCLEIC ACID AMPLIFICATION CERVIX UTERI STRUCTURE / Unknown 05/24/2024 8:40 PM CDT Derian Sorenson MD MICROBIOLOGY - GENERAL ORD ERABLES Final Result [facility] [address] [place] [address], [place] [phone] [facility] [address] [place] [address], * CT ABD+PEL W IV CON ONLY (05/24/2024 7:51 PM CDT) Anatomical Region Laterality Modality Abdomen Computed Tomogra phy 05/24/2024 7:55 PM CDT Impressions 05/24/2024 8:04 PM CDT IMPRESSION: 1. ??No acute abnormality identified. 2. ??Trace free pelvic fluid. Referred By: ?? Interpreted By: Rui Garrido MD, 05/24/2024 7:55 PM Narrative 05/24/2024 8:04 PM CDT EXAMINATION: CT ABD+PEL W CON CLINICAL HISTORY: Abdominal pain COMPARISON: 03/21/2024 DATE/TIME: 05/24/2024 7:50 PM TECHNIQUE: Multiplanar CT images of the abdomen and pelvis were obtained. ??IV contrast: uneventful intravenous administration of 75 mL Isovue 370. ??Oral contrast: None. ?? A dose lowering technique was used for this procedure, which may include, but is not limited to, dose reduction technique, automated exposure control, the use of iterative reconstruction, and ALARA (As Low As Reasonably Achievable) / Image Gently techniques. FINDINGS: Liver is negative. ??Gallbladder is negative. ??Bile ducts are negative. ??Pancreas is negative. ??Spleen is negative. ??Adrenal glands are negative. ??Kidneys are negative. ??Bladder is decompressed and not well evaluated. ??Uterus is retroverted but otherwise unremarkable. ??Calcified pelvic phleboliths. ??No ovarian mass or cystic lesion. Abdominal aorta is normal caliber. ??Trace free pelvic fluid. ??No free air. ??No bowel obstruction or bowel wall thickening. ??No evidence of appendicitis. ??No evidence of diverticulosis or diverticulitis. ??No acute osseous abnormality. Procedure Note Rui Garrido MD - 05/24/2024 EXAMINATION: CT ABD+PEL W CON CLINICAL HISTORY: Abdominal pain COMPARISON: 03/21/2024 DATE/TIME: 05/24/2024 7:50 PM TECHNIQUE: Multiplanar CT images of the abdomen and pelvis were obtained.IV contrast: uneventful intravenous administration of 75 mL Isovue 370.Oral contrast: None. A dose lowering technique was used for this procedure, which may include,but is not limited to, dose reduction technique, automated exposurecontrol, the use of iterative reconstruction, and ALARA (As Low AsReasonably Achievable) / Image Gently techniques. FINDINGS: Liver is negative. Gallbladder is negative. Bile ducts arenegative. Pancreas is negative. Spleen is negative. Adrenal glands arenegative. Kidneys are negative. Bladder is decompressed and not wellevaluated. Uterus is retroverted but otherwise unremarkable. Calcifiedpelvic phleboliths. No ovarian mass or cystic lesion. Abdominal aorta is normal caliber. Trace free pelvic fluid. No free air.No bowel obstruction or bowel wall thickening. No evidence ofappendicitis. No evidence of diverticulosis or diverticulitis. No acuteosseous abnormality. IMPRESSION: 1. No acute abnormality identified. 2. Trace free pelvic fluid. Referred By: Interpreted By: Rui Garrido MD, 05/24/2024 7:55 PM Derian Sorenson MD CT Final Resu lt * TEST URINE (05/24/2024 7:07 PM CDT) URINE HCG TEST NEGATIVE NEGATIVE 05/24/2024 7:28 PM CDT [facility] Comment: VERY DILUTE URINE SPECIMENS MAY NOT CONTAIN SURGICAL SCHEDULER LEVELS OF HCG. IF IS STILL SUSPECTED, A SERUM HCG TEST IS RECOMMENDED. URINE SPECIMEN FROM URETHRA / Unknown 05/24/2024 7:07 PM CDT Derian Sorenson MD URINE ORDERABLES Final Res ult [facility] [address] [place] [address], [place] [phone] * (ABNORMAL) Urinalysis, Auto, Complete (05/24/2024 7:07 PM CDT) COLOR (U) YELLOW 05/24/2024 7:40 PM CDT [facility] TRANSPARENCY HAZY 05/24/2024 7:40 PM CDT [facility] SPECIFIC GRAVITY (U) 1.020 1.000 - 1.030 05/24/2024 7:40 PM CDT [facility] U PH 8.0 5.0 - 9.0 05/24/2024 7:40 PM CDT [facility] LEUKOCYTES (U) NEGATIVE NEGATIVE 05/24/2024 7:40 PM CDT [facility] NITRITES NEGATIVE NEGATIVE 05/24/2024 7:40 PM CDT [facility] PROTEIN RANDOM (U) NEGATIVE NEGATIVE 05/24/2024 7:40 PM CDT [facility] GLUCOSE (U) NEGATIVE NEGATIVE 05/24/2024 7:40 PM CDT [facility] KETONES MG/DL (U) NEGATIVE NEGATIVE 05/24/2024 7:40 PM CDT [facility] BILIRUBIN (U) NEGATIVE NEGATIVE 05/24/2024 7:40 PM CDT [facility] BLOOD (U) 3+(A) NEGATIVE 05/24/2024 7:40 PM CDT [facility] WBC/HPF NONE SEEN 0 - 5 /HPF 05/24/2024 7:40 PM CDT [facility] RBC/HPF 0-5 0 - 5 /HPF 05/24/2024 7:40 PM CDT [facility] EPI/HPF FEW /HPF 05/24/2024 7:40 PM CDT [facility] CRYSTALS (U) RARE /HPF 05/24/2024 7:40 PM CDT [facility] Comment:AMORPHOUS MATERIAL URINE SPECIMEN OBTAINED BY CLEAN CATCH PROCEDURE / Unknown 05/24/2024 7:07 PM CDT us Derian Sorenson MD URINE ORDERABLES Final Res ult [facility] [address] [place] [address], [place] [phone] * (ABNORMAL) COMPREHENSIVE METABOLIC PANEL (05/24/2024 6:54 PM CDT) GLUCOSE 127(H) 70 - 99 MG/DL 05/24/2024 7:35 PM CDT [facility] BUN 13 7 - 18 MG/DL 05/24/2024 7:35 PM CDT [facility] CREATININE S/P/B 0.70 0.55 - 1.02 MG/DL 05/24/2024 7:35 PM CDT [facility] SODIUM S/P/B 144 136 - 145 MMOL/L 05/24/2024 7:35 PM T [facility] POTASSIUM S/P/B 3.7 3.5 - 5.1 MMOL/L 05/24/2024 7:35 PM T [facility] CHLORIDE S/P/B 107 100 - 108 MMOL/L 05/24/2024 7:35 PM T [facility] CO2 26.7 21 - 32 MMOL/L 05/24/2024 7:35 PM T [facility] CALCIUM S/P/B 9.2 8.5 - 10.1 MG/DL 05/24/2024 7:[address] [facility] BILIRUBIN TOTAL S/P/B 0.2 0.2 - 1.2 MG/DL 05/24/2024 7:35 PM T [facility] TOTAL PROTEIN S/P/B 7.3 6.4 - 8.2 G/DL 05/24/2024 7:[address] [facility] ALBUMIN S/P/B 4.0 3.4 - 5.0 G/DL 05/24/2024 7:[address] [facility] AST 11(L) 15 - 37 U/L 05/24/2024 7:[address] [facility] ALT 11(L) 14 - 55 U/L 05/24/2024 7:[address] [facility] ALKALINE PHOSPHATASE S/P/B 56 50 - 136 U/L 05/24/2024 7:[address] [facility] ANION GAP 10.3 5 - 15 MMOL/L 05/24/2024 7:[address] [facility] BUN CREATININE RATIO 18.6 6 - 26 05/24/2024 7:35 PM CDT [facility] A/G RATIO 1.2 1.0 - 2.0 RATIO 05/24/2024 7:35 PM CDT [facility] GFR ESTIMATE >90 >90 ML/MIN/1.7 3 M2 05/24/2024 7:35 PM CDT [facility] Comment: NOTE: eGFR is not calculated for patients <18 years of age. This is an estimated GFR calculation using the new CKD EPI creatinine equation without race and so does not require a correction factor for race. This estimated GFR should not be used for calculating drug doses. 05/24/2024 6:54 PM CDT us Derian Sorenson MD LABORATORY Final Resu lt [facility] [address] [place] [address], * (ABNORMAL) CBC W/DIFF AUTOMATED (05/24/2024 6:54 PM CDT) WBC 8.50 4.4 - 11.0 x10'3/uL 05/24/2024 7:25 PM CDT [facility] RBC 4.60 4.50 - 5.10 x10'6/uL 05/24/2024 7:25 PM CDT [facility] HGB 13.5 12.3 - 15.3 G/DL 05/24/2024 7:25 PM CDT [facility] HCT 41.0 35.9 - 44.6 % 05/24/2024 7:25 PM CDT [facility] MCV 89.1 80.0 - 96.0 FL 05/24/2024 7:25 PM CDT [facility] MCH 29.3 25.3 - 30.9 PG 05/24/2024 7:25 PM CDT [facility] MCHC 32.9 31.0 - 34.1 G/DL 05/24/2024 7:25 PM CDT [facility] RDW 13.3 12.4 - 15.1 % 05/24/2024 7:25 PM CDT [facility] PLT 191 151 - 353 x10'3/uL 05/24/2024 7:25 PM CDT [facility] MPV 12.8(H) 9.6 - 12.0 FL 05/24/2024 7:25 PM CDT [facility] RBC MORPHOLOGY NORMAL 05/24/2024 7:25 PM T [facility] PLT MORPH. NORMAL 05/24/2024 7:25 PM CDT [facility] WBC MORPHOLOGY NORMAL 05/24/2024 7:25 PM CDT [facility] LYMPHOCYTES % 14.8(L) 15.8 - 45.0 % 05/24/2024 7:25 PM CDT [facility] NEUTROPHILS % 79.4(H) 42.1 - 71.9 % 05/24/2024 7:25 PM CDT [facility] MONOCYTES % 4.8(L) 5.7 - 12.5 % 05/24/2024 7:25 PM CDT [facility] EOSINOPHILS 0.1 0.0 - 5.6 % 05/24/2024 7:25 PM CDT [facility] BASOPHILS 0.5 0.0 - 1.3 % 05/24/2024 7:25 PM CDT [facility] ABS. NEUTROPHILS 6.75(H) 1.40 - 6.00 x10'3/uL 05/24/2024 7:25 PM CDT [facility] IMMATURE GRANS % 0.4 0.0 - 0.5 % 05/24/2024 7:25 PM CDT [facility] ABS. LYMPHOCYTES 1.26 0.80 - 4.70 x10'3/uL 05/24/2024 7:25 PM CDT [facility] 05/24/2024 6:54 PM CDT Derian Sorenson MD LABORATORY Final Resu lt [facility] [address] [place] [address], [place] [phone] documented in this encounter Visit Diagnoses Diagnosis Pelvic pain- Primary documented in this encounter Administered Medications Inactive Administered Medications - up to 3 most recent administrations Medication Order MAR Action Action Date Dose Rate Site iopamidol (ISOVUE-370) 76 % injection 75 mL 75 mL, Intravenous, IMG once as needed, Contrast, 1 dose, Starting on 05/24/24 at 1951, Until 05/24/24 at 1950 Given 05/24/2024 7:51 PM CDT 75 mLs Right Arm ketorolac (TORADOL) injection 15 mg 15 mg, Intravenous, Once, 1 dose, On 05/24/24 at 1930, For IV administration, give over 15 seconds. Given 05/24/2024 7:25 PM CDT 15 mg traMADol (ULTRAM) tablet 50 mg 50 mg, Oral, Once, 1 dose, On 05/24/24 at 2014 Given 05/24/2024 8:10 PM CDT 50 mg documented in this encounter Active and Recently Administered Medications Times are shown in CDT. Scheduled Medication Order 05/22/2024 05/23/2024 05/24/2024 ketorolac (TORADOL) injection 15 mg (COMPLETED) 15 mg, Intravenous, Once, 1 dose, On 05/24/24 at 1930, For IV administration, give over 15 seconds. 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
--- OUTSIDE RECORDS SUMMARY | 2024-11-14 19:15 | XMS_ITS | Encounter Summary ---
Author Organization [facility] Address [address] [place] [address]. 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
--- OUTSIDE RECORDS SUMMARY | 2024-11-14 19:15 | XMS_ITS | Encounter Summary ---
Author Organization [facility] Address [address] [place] [address]. [place], [place] [id number] [place] [address] Care Team Providers Care Sole Leveling Machine Operator Name Role Phone Jovanny Suazo MD Primary Care Provider [phone] Reason for Visit * Reason Onset Date Comments Follow Up Call 03/22/2024 Encounter Details Date Type Department Care Team (Late st Contact Info) Description 03/22/2024 Telephone [facility] - [place] [address] [address] [place] [address] Jovanny Suazo MD [address] [place] [address] [address] [place] [address] Follow Up Call Social History Tobacco Use Types Packs/Day [...] R N Active documented in this encounter Progress Notes * Joseph Allen - 03/23/2024 10:21 AM CDT I called pt today and LVM to call the office a to make an appt to Establish Care. * Jovanny Suazo MD - 03/22/2024 9:51 PM CDT Please reach out to patient and schedule to establish care thanks. documented in this encounter Plan of Treatment Not on file documented as of this encounter Visit Diagnoses Not on filedocumented in this encounter Additional Health Concerns Assessment Noted Time PHQ-9 Depression Total Score: 14 10/08/ 022 1:17 PM INCLUSION SPECIALIST documented as of this encounter Care Teams Sole Leveling Machine Operator Relationship Specialty Start Date End Date Jovanny Suazo MD [address] [address] PCP - General INTERNAL MEDICINE 04/15/23 06/27/24 documented as of this encounter
--- OUTSIDE RECORDS SUMMARY | 2024-11-14 19:15 | XMS_ITS | Encounter Summary ---
Author Organization [facility] Address [address] [place] [address] Care Team Providers Care Steel Unloader Name Role Phone Katie Kellogg MD Primary Care Provider [phone] Reason for Visit * Reason Onset Date Comments Results 06/10/2018 Encounter Details Date Type Department Care Team (Late Contact Info) Description 06/10/2018 Telephone [facility] Pediatrics - GI [address] [place] [address] Fidelia Kaur, LINEN SUPPLY LOAD BUILDER-DIGITAL ACCOUNT SUPERVISOR [address] [place] [address] Results Social History Tobacco Use Types Packs/Day Years [...] encounter Miscellaneous Notes * Telephone Encounter - Alice Haddad RN - 06/13/2018 8:20 AM CDT Spoke with mom. Informed of message below. Mom states she is not having any diarrhea. Mom believes the scant blood is not from the stool itself but the surrounding tissue, possibly a hemorrhoid? Mom states she bought prep H OTC and will see how it goes. Mom states she will keep the office updated if any changes. She is aware to f/u in 2 months. Will update Dominga Kaur. * Telephone Encounter - Fidelia Kaur APRN-CNP - 06/11/2018 1:35 PM CDT Reviewed labs from [facility]: 06/07/18 CBC, CMP, CRP, quantitative IGA--WNL TTG IGA--WNL (1) Stool culture--negative Shiga Toxins Culture for Salmonella, Shigella, Campylobacter--not done. Stool culture was negative for C. Diff toxins A & B Please let Mother know labs were normal and most of the stool cultures were normal. If Angela is still having blood in her stools or diarrhea, we can try again to get the culture for Salmonella, Shigella, and Campylobacter. Otherwise, she can continue taking the Levsin and follow up with me in 2 months. * Telephone Encounter - Beena Alvarez - 06/11/2018 12:00 PM CDT Results have been requested from [facility] and are being faxed to the office. Will place in LIZ Walls'smailbox. Received, placed in mailbox * Telephone Encounter - Fidelia Kaur APRN-CNP - 06/10/2018 3:16 PM CDT Stool culture negative for C. Diff toxins A & B but there are no results for routine stool culture or blood tests. Spoke with Mother. She says Angela had labs and stool tests done at [facility] on 06/07/18. She is still having abdominal pain off and on but has not taken Levsin. Still sees streaks of blood in her stools but no longer having diarrhea. Went a couple of days withno bowel movement so took Miralax and had solid stool. Will see if we can get test results from [facility]. documented in this encounter Plan of Treatment Not on file documented as of this encounter Visit Diagnoses Not on filedocumented in this encounter Care Teams Steel Unloader Relationship Specialty Start Date End Date Katie Kellogg MD [address] [place] [address] PCP - General 05/31/18 documented as of this encounter
--- OUTSIDE RECORDS SUMMARY | 2024-11-14 19:15 | XMS_ITS | Encounter Summary ---
Author Organization [facility] Address [address] [place] [address] Care Team Providers Care Chef & Owner Name Role Phone Katie Kellogg MD Primary Care Provider [phone] Reason for Visit * Reason Comments VAGINITIS Encounter Details Date Type Department Care Team (Late st Contact Info) Description 05/04/2019 11:10 AM CDT Office Visit [facility] Obstetrics Gynecology and Women's Health [address] [place] [address] Radha Pfeiffer, CONVERTING TECHNICIAN-UROGYNECOLOGY PHYSICIAN [address] [address] Vulvar itching (Primary Dx); Vulvar burning; Subacute vulvitis Social History Tobacco Use Types Packs/Day Years [...] Pressure 120/68 05/04/2019 11:34 AM CDT Pulse - - Temperature - - Respiratory Rate - - Oxygen Saturation - - Inhaled Oxygen Concentration - - Weight 73.5 kg (162 lb) 05/04/2019 11:34 AM CDT Height 160 cm (5' 3 ) 05/04/2019 11:34 AM CDT Body Mass Index 28.7 05/04/2019 11:34 AM CDT Body Mass Index Percentile 92.60% 05/04/2019 11: 34 AM CDT Growth Chart: [facility] (Girls, 2- 20 Years) documented in this encounter Patient Instructions * Patient Instructions* Radha Pfeiffer APRN-CNP - 05/04/2019 12:00 PM CDT Follow the Vulvar skin care guidelines Use free & clear laundry detergent hypoallergenic bar soap for you & partner Dove, Basis, Pears No summer's gabby!! Avoid ultra strong/soft toilet paper Rinse with tap water & blot dry Cotton underwear only No thongs!! Sleep without underwear Keep a urdu. Sitz baths: Use your bath tub if it is clean and rinsed thoroughly. Adjust the amount of baking soda depending on the size of the tub and depth of the water. Use lukewarm to cool water and baking soda & sit for 5 minutes. Use 1-2 tablespoons of frozen peas or one frozen brussel sprout to the glands as an ice pack. Use clear wrap or a baggie to contain the peas/brussel sprout. Use this as often as you need for relief of symptoms. Take the Diflucan 200 mg tablet, one by mouth every other day for three doses. The yeast culture will take 2 weeks. documented in this encounter Progress Notes * Radha Pfeiffer APRN-CNP - 05/04/2019 11:50 AM CDT Images from the original note were not included. [facility] New Patient Intake Date: 05/04/2019 Refererring Physician: Unknown, Providerr Dr Rahel Oh Primary Care Physician: Age: [age] year old VS: BP 120/68 Ht 5' 3 (1.6 m) Wt 162 lb (73.5 kg) BMI 28.7 kg/m2 Allergies: Clindamycin and Sulfa drugs Medication(s): See list Medical History: Past Medical History: Diagnosis Date ??? Anxiety ??? Asperger's disorder ??? Chlamydia infection ??? Depression ??? FTND (full term normal delivery) wt 6 lb, 2 oz. ??? 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 ??? Maternal UTI (urinary tract infection), recurrent ??? PID (pelvic inflammatory disease) ??? Rotavirus infection 2011 hospitalized Surgical History: Past Surgical History: Procedure Laterality Date ??? Appendectomy ??? MYRINGOTOMY WITH TUBE INSERTION ??? OVARIAN CYSTECTOMY ??? MT EYE MUSCLE SURG PROC UNLISTED ??? MT HAND/FINGER SURGERY UNLISTED ??? MT TEAR DUCT SYSTEM SURG UNLISTED ??? Tonsillectomy Review of Systems: Constitutional: positive fatigue Eyes: negative Ears, nose, mouth, throat, and face: negative Respiratory: negative Cardiovascular: negative Gastrointestinal: positive nausea Genitourinary:positive dysuria Integument/breast: negative Hematologic/lymphatic: negative Musculoskeletal:negative Neurological: positive headaches and dizziness, memory problems, Behavioral/Psych: positive anxiety and memory loss Endocrine: negative Allergic/mmunologic: positive rashes Chief Complaint: developed a itching/burning when home form vacation Then sex became uncomfortable Has trouble inserting & wearing a tampon now. Never had trouble before STI all negative Has had sykla x 2 months Symptoms: (0=None; 10=Severe) Dyspareunia: Entry:life a knife 10/10 Deep Pain:0 Burning after intercourse:0 Vaginal discharge: 0 Vulvar burnin Vulvar itchin Clitoral pain: 0 Vulvar pain: 0 Urinary symptoms: 0 can have external dysuria Also has frequency Duration of symptom(s): One month Association with any major life or gynecological event/illness? no Previous diagnoses: dyspareunia, yeast, irritation Previous biopsies: No Previous treatment(s): diflucan, yeast cream Current treatment(s): none Symptoms prevent activities? Yes sex History of STI: Yes ch in Partner with symptoms of irritation, itching, burning or discharge? No Hormone therapy or OCP use? yes, IUD Paula; Length of use: 2 months Psychosocial aspects: Fear of having to live with chronic pain? Yes Loss of previously satisfying sex life? Yes Relationship problems with partner? Yes Isolation due to private nature of problem?Yes Able to discuss the problem with family members or friends? Yes Fear of possible cancer? No Emotional, razo, frustrated and/or angry? Yes Fear of haivng a disease that you may give to others? No Antidepressant/antianxiolytic use? No Instruction Vulvar Care Guidelines Vulvar Examination: See Photo Documentation/annotated image pH: pH Vaginal Date Value Ref Range Status 05/04/2019 4.5 Final Wt mount results: pH Wet Prep Date/Time Value Ref Range Status 05/04/2019 4.5 Final Yeast Wet Prep Date/Time Value Ref Range Status 05/04/2019 n Final Trichomonas Wet Prep Date/Time Value Ref Range Status 05/04/2019 n Final Bacteria Wet Prep Date/Time Value Ref Range Status 05/04/2019 n Final Whiff Test Date/Time Value Ref Range Status 05/04/2019 n Final TRUNG Prep: TRUNG Prep Date Value Ref Range Status 05/04/2019 No Final Cultures: yeast Biopsy: Not done Muscle Tone: L.A. Bilateral NL O.I. Bilateral NL Kegals: 1 Impression/Plan: 1. Vulvar itching/burning/vulvitis: Implement Vulvar Care Guidelines Check yeast culture Diflucan 200 mg tablet, one by mouth every other day for three doses. Counseled re risk vulvodynia is sx persisit 2. F/U in 6 weeks Patient information materials given: Yes Records from referring MD received: Yes Records from referring MD reviewed: Yes Consultation letter sent to referring MD: Yes Time of visit: 60 minutes. Significant portion (>50%) time was spent face to face in counseling the patient about the Vulvar Care Guidelines, vulvitis and discussing the treatment plan as outlined in instructions. All questions were answered to her satisfaction. documented in this encounter Plan of Treatment Not on file documented as of this encounter Procedures Procedure Name Priority Date/Time Associated Diagnosis Comments CULTURE YEAST Routine 05/04/2019 12:52 PM CDT Vulvar itching Vulvar burning Subacute vulvitis PH FLUID - POCT (AMB) [facility]U Routine 05/04/2019 Vulvar itching Vulvar burning Subacute vulvitis WET PREP - POINT OF CARE (AMB) [facility]U Routine 05/04/2019 Vulvar itching Vulvar burning Subacute vulvitis FUNGUS TRUNG - POINT OF CARE (AMB) [facility] Routine 05/04/2019 Vulvar itching Vulvar burning Subacute vulvitis documented in this encounter Results * (ABNORMAL) CULTURE YEAST (05/04/2019 12:52 PM CDT) Culture Yeast with ID (A) [facility] Comment: ??CULTURE, YEAST, W/IDENTIFICATION ?MICRO NUMBER: ?[id number] ??TEST STATUS: ? FINAL ??SPECIMEN SOURCE: ?? VULVA ??SPECIMEN QUALITY: ??ADEQUATE ??RESULT: ?Casie albicans Test Performed at: [facility] ??[id number] NARINDER WAKEFIELD MD Microbiology ENTIRE VULVA / Unknown 05/04/2019 12:52 PM CDT 05/05/2019 1:37 AM CDT Radha Pfeiffer APRN-UROGYNECOLOGY PHYSICIAN LAB - MICRO BIOLOGY ORDERABLES [address] [address] * WET PREP - POINT OF CARE (AMB) [facility] (05/04/2019) pH Wet Prep 4.5 Yeast Wet Prep n Trichomonas Wet Prep n Bacteria Wet Prep n Whiff Test n BODY FLUID SPECIMEN / Unknown 05/04/2019 Radha Pfeiffer APRN-UROGYNECOLOGY PHYSICIAN LAB - POINT OF CARE ORDERABLES * PH FLUID - POCT (AMB) [facility] (05/04/2019) pH Vaginal 4.5 Fluid ENTIRE VAGINA / Unknown 05/04/2019 Radha Pfeiffer CONVERTING TECHNICIAN-UROGYNECOLOGY PHYSICIAN LAB - POINT OF CARE ORDERABLES * FUNGUS TRUNG - POINT OF CARE (AMB) [facility] (05/04/2019) TRUNG Prep No Fluid BODY FLUID SPECIMEN / Unknown 05/04/2019 Radha Pfeiffer CONVERTING TECHNICIAN-UROGYNECOLOGY PHYSICIAN LAB - POINT OF CARE ORDERABLES documented in this encounter Visit Diagnoses Diagnosis Vulvar itching- Primary Pruritus of genital organs Vulvar burning Unspecified symptom associated with female genital organs Subacute vulvitis documented in this encounter Care Teams Chef & Owner Relationship Specialty Start Date End Date Katie Kellogg MD [address] [place] [address] PCP - General 05/31/18 documented as of this encounter
--- OUTSIDE RECORDS SUMMARY | 2024-11-14 19:15 | XMS_ITS | Encounter Summary ---
Author Organization [facility] Address [address] [place] [address] Care Team Providers Care Finger Cobbler Name Role Phone Katie Kellogg MD Primary Care Provider [phone] Reason for Visit * Reason Comments Consultation blood clots Encounter Details Date Type Department Care Team (Latest Contact Info) Description 11/19/2018 3:45 PM MILITARY SOURCE OPERATIONS OFFICER Office Visit [facility] Vascular Surgery [address] [place] [address] Juan José Rodriguez MD [address] [place], [place] [id number] Superficial thrombophlebitis of left upper extremity (Primary Dx) Social History Tobacco Use Types Packs/Day Years [...] Sign Reading Time Taken Comments Blood Pressure 99/65 11/19/2018 3:28 PM MILITARY SOURCE OPERATIONS OFFICER Pulse 60 11/19/2018 3:28 PM MILITARY SOURCE OPERATIONS OFFICER Temperature 37.1 ??C (98.8 ??F) 11/19/2018 3:28 PM CS T Respiratory Rate - - Oxygen Saturation - - Inhaled Oxygen Concentration - - Weight 74.4 kg (164 lb) 11/19/2018 3:28 PM MILITARY SOURCE OPERATIONS OFFICER Height 160 cm (5' 3 ) 11/19/2018 3:28 PM MILITARY SOURCE OPERATIONS OFFICER Body Mass Index 29.05 11/19/2018 3:28 PM MILITARY SOURCE OPERATIONS OFFICER Body Mass Index Percentile 93.55% 11/19/2018 3:2 8 PM MILITARY SOURCE OPERATIONS OFFICER Growth Chart: [facility] (Girls, 2- 20 Years) documented in this encounter Progress Notes * Charlotte Alejandra, RENEWABLE ENERGY CONSULTANT-BUSINESS CONTINUITY MANAGER - 11/19/2018 4:09 PM CST [facility] Vascular Surgery Patient seen with Dr. Rodriguez HISTORY OF PRESENT ILLNESS: Angela Peterson is a 17 y.o. female who presents today, on 11/19/2018, to the Vascular Surgery Office at [facility]. She reports undergoing surgery for an ovarian cyst in August 2018 at which time she had an IV in her left wrist after which she developed Left wrist pain at the site of where the IV was. This was evaluated and she underwent an ultrasound which showed superficial thrombophlebitis. She has tried advil with some relief, but this pain remainsboth bothersome and worrisome for her. It is particularly aggravated by gym class with weight lifting and hyperextension of her wrist. She denies any other trauma to this area. She has not tried a splint, compression, or heat. She is accompanied by her father. Past Medical History: Diagnosis Date ??? Anxiety ??? Asperger's disorder ??? Depression ??? FTND (full term normal delivery) wt 6 lb, 2 oz. ??? 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 ??? Maternal UTI (urinary tract infection), recurrent ??? Rotavirus infection 2012 hospitalized Past Surgical History: Procedure Laterality Date ??? MYRINGOTOMY WITH TUBE INSERTION ??? MI EYE MUSCLE SURG PROC UNLISTED ??? MI HAND/FINGER SURGERY UNLISTED ??? MI TEAR DUCT SYSTEM SURG UNLISTED ??? Tonsillectomy Family History Problem Relation Age of Onset ??? Other Maternal Grandfather IBS ??? Other Paternal Grandfather IBS ??? Other Maternal Aunt IBS ??? Celiac Disease Neg Hx ??? Crohn's Disease Neg Hx ??? Ulcerative Colitis Neg Hx Social History ??? Marital status: Single Occupational History ??? Not on file. Student in [employer] with plans for graduation this Spring. Social History Main Topics ??? Smoking status: Never Smoker ??? Smokeless tobacco: Never Used ??? Alcohol use No ??? Drug use: No ??? Sexual activity: Yes control/ protection: IUD Social History Narrative Lives with both parents. She is a senior in high school and does well in school. Allergies Allergen Reactions ??? Clindamycin Urticaria ??? Sulfa Drugs Urticaria Medications: Current Outpatient Prescriptions on File Prior to Visit Medication Sig Dispense Refill ??? busPIRone (BUSPAR) 10 MG tablet Take 10 mg by mouth 3 times daily 20mg AM 10mg afternoon 20mg in PM ??? Ergocalciferol (VITAMIN D2 PO) Take 50,000 capsules by mouth every 7 days ??? ferrous sulfate 325 (65 FE) MG tablet Take 325 mg by mouth once daily ??? hyoscyamine (LEVSIN/SL) 0.125 MG SL tablet Dissolve 1 tablet under the tongue 2 times daily as needed for Spasms (Patient not taking: Reported on 11/19/2018) 60 tablet 1 ??? sertraline (ZOLOFT) 25 MG tablet Take 25 mg by mouth once daily ??? SUMAtriptan (IMITREX) 25 MG tablet Take 25 mg by mouth as needed 0 No current facility-administered medications on file prior to visit. REVIEW OF SYSTEMS: Review of Systems - General ROS: positive for - fatigue Psychological ROS: positive for - depression The remains ROS was negative. Objective: Vitals: 11/19/18 1528 BP: 99/65 Pulse: 60 Temp: 98.8 ??F (37.1 ??C) Weight: 164 lb (74.4 kg) Height: 5' 3 (1.6 m) PHYSICAL EXAM: General: Awake, alert, Oriented times 3, NAD. Extremities: Left arm and hand without edema. 2+ Left radial pulse. No palpable venous cord present on Left. No redness. No tenderness to touch. Some pain with hyperextension. Testing: Not available for view. Assessment: H/O Left wrist superficial thrombophlebitis secondary to peripheral IV. Likely some nerve irritation. Plan: Assured that this problem should be self limiting. Continue Advil/ NSAIDs PRN. Apply Heat PRN. Massage area. Tubi full stack python developer for compression. May use wrist sleeve. Note to avoid wrist hyperextention for 2 weeks given. Natalya Alejandra RN, ANP- Vascular Surgery Nurse Practitioner 11/19/2018 4:10 PM TARY SOURCE OPERATIONS OFFICER documented in this encounter Plan of Treatment Not on file documented as of this encounter Visit Diagnoses Diagnosis Superficial thrombophlebitis of left upper extremity- Primary documented in this encounter Care Teams Finger Cobbler Relationship Specialty Start Date End Date Katie Kellogg MD [address] [place] [address] PCP - General 05/31/18 documented as of this encounter
--- OUTSIDE RECORDS SUMMARY | 2024-11-14 19:15 | XMS_ITS | Encounter Summary ---
Author Organization [facility] Address [address] [place] [address]. [place], [place] [id number] [place] [address] Care Team Providers Care Informatica Architect Name Role Phone Jovanny Suazo MD Primary Care Provider [phone] Encounter Details Date Type Department Care Team (Latest Contact Info) Description 03/21/2024 Travel Social History Tobacco Use Types Packs/Day [...] Total Score: 14 10/08/ 022 1:17 PM PLATE CONDITIONER documented as of this encounter Care Teams Informatica Architect Relationship Specialty Start Date End Date Jovanny Suazo MD [address] [address] PCP - General INTERNAL MEDICINE 04/15/23 06/27/24 documented as of this encounter
--- OUTSIDE RECORDS SUMMARY | 2024-11-14 19:15 | XMS_ITS | Encounter Summary ---
Author Organization [facility] Address [address] [place] [address]. [place], [place] [address] [place] [address] Care Team Providers Care Asbestos Siding Installer Name Role Phone Fiona Parkinson MD Primary Care Pr ovider Unavailable Encounter Details Date Type Department Care Team (Latest Contact Info) Description 03/19/2023 Scan [facility] Scanned, Doc Med Group Social History Tobacco Use Types Packs/Day Years [...] Depression Total Score: 14 022 1:17 PM SAFETY DEPOSIT SUPERVISOR documented as of this encounter Care Teams Asbestos Siding Installer Relationship Specialty Start Date End Date Fiona Parkinson MD PCP - General FAMILY PRACTICE 10/08/22 04/14/23 documented as of this encounter
--- OUTSIDE RECORDS SUMMARY | 2024-11-14 19:16 | XMS_ITS | Encounter Summary ---
Author Organization [facility] Address [address] [place] [address]. [place] [address] [place] [address] Care Team Providers Care Business Communications Instructor Name Role Phone Cortney Colbert NP Primary Care Provider [phone] Reason for Visit * Reason Comments Wound Infection Encounter Details Date Type Department Care Team (Late st Contact Info) Description 12/19/2021 10:05 PM SERVICES DELIVERY DRIVER - 12/19/2021 11:56 PM SERVICES DELIVERY DRIVER Emergency [facility] Emergency Room [address] [place] [address] Donn Simon MD [address] [place] [address] [id number] Wound Infection Discharge Disposition: Home or Self Care (Routine Discharge) Social History Tobacco Use Types Packs/Day Years Used Date Smoking Tobacco: Never Smokeless Tobacco: Never Alcohol Use Standard Drinks/Week Comments Not Currently 0 (1 standard drink = 0.6 oz pur e alcohol) Comments No Sex and Gender Information Value Date Recorded Sex Assigned at Not on file Legal Sex Female 7:16 PM CDT Gender Identity Not on file Sexual Orientation Not on file COVID-19 Exposure Response Date Recorded In the last 10 days, have yo u been in contact with someone who was confirmed or suspected to have Coronavirus/COVID-19? No / Unsure 12/19/2021 7:36 PM SERVICES DELIVERY DRIVER documented as of this encounter Last Filed Vital Signs Vital Sign Reading Time Taken Comments Blood Pressure 126/78 12/19/2021 11:50 PM SERVICES DELIVERY DRIVER Pulse 71 12/19/2021 11:50 PM SERVICES DELIVERY DRIVER Temperature 36.6 ??C (97.9 ??F) 12/19/2021 10:[address] Respiratory Rate 18 12/19/2021 10:07 PM SERVICES DELIVERY DRIVER Oxygen Saturation 97% 12/19/2021 11:50 PM SERVICES DELIVERY DRIVER Inhaled Oxygen Concentration - - Weight 77.1 kg (170 lb) 12/19/2021 10:07 PM SERVICES DELIVERY DRIVER Height 160 cm (5' 3 ) 12/19/2021 10:07 PM SERVICES DELIVERY DRIVER Body Mass Index 30.11 12/19/2021 10:07 PM SERVICES DELIVERY DRIVER documented in this encounter Functional Status * RETIRED Are you deaf or do you have serious difficulty hearing Answer Date of Assessment Author Status Yes 07/07/2021 2:08 AM CDT Activ e * RETIRED Are you blind or do you have serious difficulty seeing, even when wearing glasses? Answer Date of Assessment Author Status No 07/07/2021 2:08 AM CDT Activ e * Do you have serious difficulty walking or climbing stairs? Answer Date of Assessment Author Status No 07/07/2021 2:08 AM CDT Alba Palomares R N Active * Do you have difficulty dressing or bathing? Answer Date of Assessment Author Status No 07/07/2021 2:08 AM CDT Alba Palomares R N Active * Because of a physical, mental, or emotional condition, do you have difficulty doing errands alone such as visiting a doctor's office or shopping? Answer Date of Assessment Author Status No 07/07/2021 2:08 AM CDT Alba Palomares R N Active documented as of this encounter Mental Status * Because of a physical, mental, or emotional condition, do you have serious difficulty concentrating, remembering, or making decisions? Answer Entry Date Author Status No 07/07/2021 2:08 AM CDT Alba Palomares R N Active documented in this encounter Discharge Instructions * Discharge Instructions* Donn Simon MD - 12/19/2021 11:43 PM SERVICES DELIVERY DRIVER Wash with hibiclens soap to decrease bacteria on the skin. Follow up with your primary care doctor for ongoing care and evaluation. ICES DELIVERY DRIVER * Attachments The following attachments cannot be sent through Care Everywhere. * Cellulitis (Skin Infection) Discharge Instructions, Adult ([place]) documented in this encounter Medications at Time of Discharge busPIRone 5 MG tablet Take 5 mg by mouth 3 (three) times daily as needed. 2 chlorhexidine (HIBICLENS) 4 % Liquid Apply topically weekly. Bath with hibiclens soap weekly 240 mL 12/19/2021 2 doxycycline hyclate 100 MG capsule Take 1 capsule (100 mg total) by mouth 2 (two) times daily for 10 days. 20 capsule 12/19/2021 2 Drospirenone (SLYND) 4 MG TabIndications:S/ P laparoscopy Take 1 tablet by mouth daily. Start on 4th day of menses 28 tablet 11 07/08/2021 2 oxyCODONE-acetami nophen (PERCOCET) 5-325 MG tabletIndications :Acute Pain < 7 Day Supply Take 1 tablet by mouth every 6 (six) hours as needed. Indications: Acute Pain < 7 Day Supply 20 tablet 07/08/2021 2 sertraline 25 MG tablet Take 25 mg by mouth daily. 2 documented as of this encounter ED Notes * Donn Simon MD - 12/19/2021 10:33 PM CST Emergency Department Note Chief Complaint Chief Complaint Patient presents with ??? Wound Infection History of Present Illness Patient presents for evaluation of several red skin lesions which have been present for the past 2 days. Patient notes the largest lesion to the right forearm which has a ring of erythema surroundinga few small bulla without drainage which she states is growing over time. She also has a smaller lesion to the left anterior shoulder. She notes some swelling around the left ring finger nail bed as well. She has been on oral keflex for the past 1.5 days and has not noticed any improvement in theselesions. She has been taking benadryl without improvement in her rash. She denies fevers or chills and is not on any other home or OTC medications. Patient was started on antibiotics and steroids forthis 2 days ago at . She was treated last month for similar issues for an area of infection in the right posterior shoulder which was treated with oral doxycycline. Medical History ALLERGIES: Allergies Allergen Reactions ??? Sulfa Antibiotics Hives ??? Clindamycin Hives MEDICATIONS: Prior to Admission medications Medication Sig Start Date End Date Taking? Authorizing Provider chlorhexidine (HIBICLENS) 4 % Liquid Apply topically weekly. Bath with hibiclens soap weekly 12/19/21Yes Donn Simon MD doxycycline hyclate 100 MG capsule Take 1 capsule (100 mg total) by mouth 2 (two) times daily for 10 days. 12/19/21 12/29/21 Yes Donn Simon MD busPIRone 5 MG tablet Take 5 mg by mouth 3 (three) times daily as needed. Doc Abstract Drospirenone (SLYND) 4 MG Tab Take 1 tablet by mouth daily. Start on 4th day of menses 07/08/21 Daniel Cardoso MD oxyCODONE-acetaminophen (PERCOCET) 5-325 MG tablet Take 1 tablet by mouth every 6 (six) hours as needed. Indications: Acute Pain < 7 Day Supply 07/08/21 Daniel Cardoso MD sertraline 25 MG tablet Take 25 mg by mouth daily. Doc Abstract PAST MEDICAL HISTORY: Past Medical History: Diagnosis Date ??? Depression 2016 ??? Misophonia 2014 PAST SURGICAL HISTORY: Past Surgical History: Procedure Laterality Date ??? ABDOMINAL SURGERY cyst on ovary, pt. not sure whick side. aug 2018 ??? EYE SURGERY ??? FRACTURE SURGERY right 5th finger ??? TONSILLECTOMY FAMILY HISTORY: Family History Problem Relation Name Age of Onset ??? Thyroid Disease Mother ??? Hypertension Father SOCIAL HISTORY: Social History Tobacco Use ??? Smoking status: Never Smoker ??? Smokeless tobacco: Never Used Vaping Use ??? Vaping Use: Never used Substance Use Topics ??? Alcohol use: Not Currently ??? Drug use: Yes Frequency: 3.0 times per week Types: Marijuana Review of Systems Review of Systems Constitutional: Negative for chills and fever. Respiratory: Negative for cough, shortness of breath and wheezing. Cardiovascular: Negative for chest pain. Gastrointestinal: Negative for nausea and vomiting. Musculoskeletal: Negative for joint swelling. Skin: Positive for color change, rash and wound (see HPI). Neurological: Negative for weakness and numbness. Hematological: Negative for adenopathy. Psychiatric/Behavioral: Negative for confusion. All other systems reviewed and are negative. Physical Exam Filed Vitals: 12/19/21 2207 12/19/21 2350 BP: 135/75 126/78 Pulse: 70 71 Resp: 18 Temp: 97.9 ??F (36.6 ??C) TempSrc: Skin SpO2: 100% 97% Weight: 77.1 kg (170 lb) Height: 5' 3 (1.6 m) Physical Exam Vitals and nursing note reviewed. Constitutional: General: She is not in acute distress. Appearance: She is well-developed. HENT: Head: Normocephalic and atraumatic. Cardiovascular: Rate and Rhythm: Normal rate and regular rhythm. Heart sounds: Normal heart sounds. No murmur heard. No friction rub. No gallop. Pulmonary: Effort: Pulmonary effort is normal. No respiratory distress. Breath sounds: Normal breath sounds. No wheezing or rales. Abdominal: General: There is no distension. Palpations: Abdomen is soft. There is no mass. Tenderness: There is no abdominal tenderness. There is no guarding. Skin: General: Skin is warm and dry. Comments: There is an area of erythema of the right forearm measuring about 6cm diameter with central area with several small bullae about 0.25-0.5cm in size. This area is somewhat tender, no fluctuance or drainage. Neurological: Mental Status: She is alert and oriented to person, place, and time. Psychiatric: Behavior: Behavior normal. Thought Content: Thought content normal. Judgment: Judgment normal. Diagnostic Studies / Procedures LABORATORY STUDIES: Results for orders placed or performed during the hospital encounter of 12/19/21 BEDSIDE BLOOD GLUCOSE Result Value Ref Range GLUCOSE WHOLE BLOOD 96 70 - 100 mg/dL POCT glucose Result Value Ref Range GLUCOSE POC 96 70 - 110 mg/dL IMAGING STUDIES No orders to display Dr. Simon has personally visualized and interpreted all imaging studies. ED Course / Medical Decision Making MDM Number of Diagnoses or Management Options Cellulitis of right upper extremity: new and requires workup Diagnosis management comments: DDx: Cellulitis, abscess, hyperglycemia Patient with recurrent multifocal cellulitis without abscess. She has been on keflex and I will change this to doxycycline today. She is allergic to sulfa and clinda. I will check her blood sugar which was normal a few months ago to be sure she is not newly diabetic. If normal, will plan discharge on oral doxycycline and advise chlorhexidine soaks and follow up with PCP. Risk of Complications, Morbidity, and/or Mortality Presenting problems: low Diagnostic procedures: low Management options: low Patient Progress Patient progress: improved Medications doxycycline hyclate (VIBRA-TABS) tablet 100 mg (100 mg Oral Given 12/19/212306) SNOMED CT(R) 1. Cellulitis of right upper extremity CELLULITIS OF RIGHT UPPER LIMB Discharge Medication List as of 12/19/2021 11:43 PM START taking these medications Details chlorhexidine (HIBICLENS) 4 % Liquid Apply topically weekly. Bath with hibiclens soap weekly, Starting Sat12/19/2021, Eprescribe Class: Eprescribe Pharmacy: [id number] - [facility] [address] AT [place] [address] (Ph #: [phone]) doxycycline hyclate 100 MG capsule Take 1 capsule (100 mg total) by mouth 2 (two) times daily for 10 days., Starting Sat12/19/2021, Until Sat12/29/2021, Eprescribe Class: Eprescribe Pharmacy: [id number] [address] [facility] AT [place] [address] (Ph #: [phone]) Disposition: Discharge Follow-Up: No follow-up provider specified. Donn Simon MD 12/20/2021 2:00 AM Donn Simon MD 12/20/21 0200 ICES DELIVERY DRIVER * Chana Martin RN - 12/19/2021 10:10 PM CST Martin presents with a would on her right arm for 2 weeks. It is blistered and there is a red ring around it. She is concerned that she has cellulitis as she has had it present like this before. She has been on antibiotics for 8 days. ICES DELIVERY DRIVER documented in this encounter Plan of Treatment Not on file documented as of this encounter Procedures Procedure Name Priority Date/Time Associated Diagnosis Comments POCT BEDSIDE BLOOD GLUCOSE STAT 12/19/2021 11:41 PM SERVICES DELIVERY DRIVER POCT GLUCOSE - VALERO DOCKED DEVICE Routine 12/19/2021 11:39 PM SERVICES DELIVERY DRIVER documented in this encounter Results * BEDSIDE BLOOD GLUCOSE (12/19/2021 11:41 PM SERVICES DELIVERY DRIVER) GLUCOSE WHOLE BLOOD 96 70 - 100 mg/dL us Donn Simon MD NURSING TREATMENT ORDERABLES - O NCE OR INTERVALS Final Result * POCT glucose (12/19/2021 11:39 PM SERVICES DELIVERY DRIVER) GLUCOSE POC 96 70 - 110 mg/dL 12/19/2021 11:41 PM SERVICES DELIVERY DRIVER [facility] 12/19/2021 11:3 9 PM SERVICES DELIVERY DRIVER Donn Simon MD POCT ORDERABLES - DEVICE Final R esult [facility] [address] [place] [address], documented in this encounter Visit Diagnoses Diagnosis Cellulitis of right upper extremity- Primary Cellulitis and abscess of upper arm and forearm documented in this encounter Administered Medications Inactive Administered Medications - up to 3 most recent administrations Medication Order MAR Action Action Date Dose Rate Site doxycycline hyclate (VIBRA-TABS) tablet 100 mg 100 mg, Oral, Once, 1 dose, On Sat12/19/21 at 2300 Given 12/19/2021 11:07 PM SERVICES DELIVERY DRIVER 100 mg documented in this encounter Active and Recently Administered Medications Times are shown in SERVICES DELIVERY DRIVER. Scheduled Medication Order 12/17/2021 12/18/2021 12/19/2021 doxycycline hyclate (VIBRA-TABS) tablet 100 mg (COMPLETED) 100 mg, Oral, Once, 1 dose, On Sat12/19/21 at 2300 2307 (Given - Provid er: Wilder Smith RN) documented in this encounter Care Teams Business Communications Instructor Relationship Specialty Start Date End Date Cortney Colbert NP [facility] [place] [address] PCP - General NURSE PRACTITIONER 05/06/21 10/07/22 documented as of this encounter
--- OUTSIDE RECORDS SUMMARY | 2024-11-14 19:16 | XMS_ITS | Encounter Summary ---
Author Organization [facility] Address [address] [place] [address]. [place], [place] [id number] [place] [id number] Care Team Providers Care Baked And Graphite Inspector Name Role Phone Fiona Parkinson MD Primary Care Pr ovider Unavailable Encounter Details Date Type Department Care Team (Late st Contact Info) Description 01/24/2023 - 01/24/2023 9:15 AM CDT Hospital Encounter [facility] [address] [address] Fiona Parkinson MD Discharge Disposition: Home or [...] 3:52 AM Taylor Swain R N Active * Do you have difficulty dressing or bathing? 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
--- OUTSIDE RECORDS SUMMARY | 2024-11-14 19:16 | XMS_ITS | Encounter Summary ---
Author Organization [facility] Address [address] [place] [address]. [place], [place] [address] [place] [id number] Care Team Providers Care Supervisor Enrobing Name Role Phone Fiona Parkinson MD Primary Care Pr ovider Unavailable Reason for Visit * Reason Comments Chest Pain Encounter Details Date Type Department Care Team (Late st Contact Info) Description 10/20/2022 3:00 AM CEO ZIFF DAVIS - 10/20/2022 5:26 AM CEO ZIFF DAVIS Emergency [facility] Emergency Room [id number] [place] [address] Sharon Yepez MD [address] [place] [address] Chest Pain Discharge Disposition: Home or Self [...] suspected to have Coronavirus/COVID-19? No / Unsure 10/20/2022 3:19 AM CEO ZIFF DAVIS documented as of this encounter Last Filed Vital Signs Vital Sign Reading Time Taken Comments Blood Pressure 103/61 10/20/2022 5:00 AM CEO ZIFF DAVIS Pulse 75 10/20/2022 5:00 AM CEO ZIFF DAVIS Temperature 37.1 ??C (98.8 ??F) 10/20/2022 3:04 AM CS T Respiratory Rate 23 10/20/2022 5:00 AM CEO ZIFF DAVIS Oxygen Saturation 98% 10/20/2022 3:04 AM CEO ZIFF DAVIS Inhaled Oxygen Concentration - - Weight - - Height - - Body Mass Index - - documented in this encounter Functional Status * [...] cannot be sent through Care Everywhere. * Chest Pain Discharge Instructions (Nepalese) documented in this encounter Medications at Time of Discharge albuterol sulfate HFA 108 (90 Base) MCG/ACT inhaler 10/06/2022 buPROPion SR (WELLBUTRIN SR) 150 MG 12 hr tabletIndications:So cial anxiety disorder,Moderate episode of recurrent major depressive disorder (CMS/HCC [facility]) Take 1 tablet every morning x 3 days, then increase to 1 tablet twice a day 60 tablet 2 10/08/2022 3 diclofenac EC (VOLTAREN) 50 MG tabletIndications:Ch est wall pain,Allodynia Take 1 tablet (50 mg total) by mouth 3 (three) times daily. 30 tablet 10/15/2022 3 gabapentin (NEURONTIN) 100 MG capsuleIndications:C hest wall pain,Allodynia Take 1 capsule (100 mg total) by mouth nightly. 30 capsule 10/15/2022 3 methylPREDNISolone, GHADA, (MEDROL DOSEPAK) 4 MG tablet Take 0.5 tablets (2 mg total) by mouth daily. 6 TABLETS ON DAY ONE, 5 TABLETS DAY TWO, 4 TABLETS DAY THREE, 3 TABLETS DAY FOUR, 2 TABLETS DAY FIVE, AND 1 TABLET DAY SIX 1 each 10/20/2022 3 ondansetron (ZOFRAN-ODT) 4 MG disintegrating tabletIndications:Na usea 1 tablet every 4-6 hours as needed for nausea/vomitin g 20 tablet 10/15/2022 3 propranolol (INDERAL) 10 MG tabletIndications:So cial anxiety disorder,Other migraine without status migrainosus, not intractable Take 1 tablet (10 mg total) by mouth 2 (two) times daily. 60 tablet 2 10/08/2022 3 documented as of this encounter ED Notes * Sharon Yepez MD - 10/20/2022 3:33 AM CST ED NOTE Chief Complaint Chief Complaint Patient presents with ??? Chest Pain History of Present Illness 21y F here with c/o left sided chest pain. Symptoms have been present for over a week. Has been evaluated here and at an OSH for same. Pain is constant, get's worse at times. Has pain with breathing at times and feel's short of breath. Prior to symptoms starting pt had URI symptoms. No vomiting. Nofevers. Medical History ALLERGIES: Allergies Allergen Reactions ??? Sulfa Antibiotics Hives ??? Vancomycin Infusion Reaction Fever, chills ??? Clindamycin Hives MEDICATIONS: Prior to Admission medications Medication Sig Start Date End Date Taking? Authorizing Provider buPROPion SR (WELLBUTRIN SR) 150 MG 12 hr tablet Take 1 tablet every morning x 3 days, then increase to 1 tablet twice a day 10/08/22 Yes Fiona Parkinson MD diclofenac EC (VOLTAREN) 50 MG tablet Take 1 tablet (50 mg total) by mouth 3 (three) times daily. 10/15/22 Yes Fiona Parkinson MD gabapentin (NEURONTIN) 100 MG capsule Take 1 capsule (100 mg total) by mouth nightly. 10/15/22 Yes Fiona Parkinson MD methylPREDNISolone, GHADA, (MEDROL DOSEPAK) 4 MG tablet Take 0.5 tablets (2 mg total) by mouth daily.6 TABLETS ON DAY ONE, 5 TABLETS DAY TWO, 4 TABLETS DAY THREE, 3 TABLETS DAY FOUR, 2 TABLETS DAY FIVE, AND 1 TABLET DAY SIX 10/20/22 Yes Sharon Yepez MD propranolol (INDERAL) 10 MG tablet Take 1 tablet (10 mg total) by mouth 2 (two) times daily. 10/08/22 Yes Fiona Parkinson MD albuterol sulfate HFA 108 (90 Base) MCG/ACT inhaler 10/06/22 GENERICPROVIDER, DEFAULT HISTORY ondansetron (ZOFRAN-ODT) 4 MG disintegrating tablet 1 tablet every 4-6 hours as needed for nausea/vomiting 10/15/22 Fiona Parkinson MD PAST MEDICAL HISTORY: Past Medical History: Diagnosis Date ??? Depression 2016 ??? Misophonia 2014 PAST SURGICAL HISTORY: Past Surgical History: Procedure Laterality Date ??? ABDOMINAL SURGERY cyst on ovary, pt. not sure whick side. aug 2018 ??? CLOSED RX NOSE FRACTURE 09/2021 ??? EYE SURGERY ??? FRACTURE SURGERY right 5th finger ??? TONSILLECTOMY FAMILY HISTORY: Family History Problem Relation Name Age of Onset ??? Thyroid Disease Mother ??? Hypertension Father SOCIAL HISTORY: Social History Tobacco Use ??? Smoking status: Never ??? Smokeless tobacco: Never Vaping Use ??? Vaping Use: Never used Substance Use Topics ??? Alcohol use: Not Currently Comment: once ever few months ??? Drug use: Yes Frequency: 1.0 times per week Types: Marijuana Review of Systems Review of Systems Constitutional: Negative for fever. Respiratory: Positive for cough. Cardiovascular: Positive for chest pain. All other systems reviewed and are negative. Physical Exam Filed Vitals: 10/20/22 0304 BP: 128/48 Pulse: 74 Resp: 20 Temp: 98.8 ??F (37.1 ??C) TempSrc: Tympanic SpO2: 98% Physical Exam Vitals and nursing note reviewed. Constitutional: Appearance: She is not toxic-appearing. HENT: Head: Normocephalic. Nose: No congestion. Mouth/Throat: Mouth: Mucous membranes are moist. Eyes: Conjunctiva/sclera: Conjunctivae normal. Cardiovascular: Rate and Rhythm: Normal rate and regular rhythm. Heart sounds: Normal heart sounds. Pulmonary: Effort: Pulmonary effort is normal. Breath sounds: Normal breath sounds. Chest: Chest wall: Tenderness present. Abdominal: Palpations: Abdomen is soft. Tenderness: There is no abdominal tenderness. Musculoskeletal: General: No swelling. Cervical back: Neck supple. Skin: General: Skin is warm and dry. Neurological: Mental Status: She is alert. Psychiatric: Mood and Affect: Mood normal. 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: : [id number] Requested By: SHARON YEPEZ Order Number: [id number] Reading MD: Measurements Intervals [place] Rate: 65 P: 267 NC: 130 QRS: -83 QRSD: 88 T: 90 QT: 383 QTc: 400 Interpretive Statements JUNCTIONAL RHYTHM LEFT AXIS DEVIATION [QRS AXIS < -30] ST DEVIATION AND MODERATE T-WAVE ABNORMALITY, CONSIDER ANTERIOR ISCHEMIA [-0.1+ mV T-WAVE IN V3/V4] Compared to ECG 05/06/2021 07:45:27 Junctional rhythm now present Left-axis deviation now present Possible ischemia now present Sinus rhythm no longer present T-wave abnormality still present LABORATORY STUDIES: Results for orders placed or performed during the hospital encounter of 10/20/22 CBC W/DIFF AUTOMATED Result Value Ref Range WBC 8.9 4.4 - 11.0 x10'3/uL RBC 4.24 (L) 4.50 - 5.10 x10'6/uL HGB 11.8 (L) 12.3 - 15.3 G/DL HCT 36.1 35.9 - 44.6 % MCV 85.1 80.0 - 96.0 FL MCH 27.8 25.3 - 30.9 PG MCHC 32.7 31.0 - 34.1 G/DL RDW 14.3 12.4 - 15.1 % PLT 177 151 - 353 x10'3/uL MPV 13.3 (H) 9.6 - 12.0 FL RBC MORPHOLOGY NORMAL PLT MORPH. NORMAL WBC MORPHOLOGY NORMAL LYMPHOCYTES 26.2 15.8 - 45.0 % NEUTROPHILS 63.3 42.1 - 71.9 % MONOCYTES 8.1 5.7 - 12.5 % EOSINOPHILS 1.4 0.0 - 5.6 % BASOPHILS 0.7 0.0 - 1.3 % ABS. NEUTROPHILS 5.62 1.40 - 6.00 x10'3/uL IMMATURE GRANS 0.3 0.0 - 0.5 % ABS. LYMPHOCYTES 2.32 0.80 - 4.70 x10'3/uL COMPREHENSIVE METABOLIC PANEL Result Value Ref Range GLUCOSE 98 70 - 99 MG/DL BUN 15 7 - 18 MG/DL CREATININE S/P/B 0.73 0.55 - 1.02 MG/DL SODIUM 142 136 - 145 MMOL/L POTASSIUM 3.7 3.5 - 5.1 MMOL/L CHLORIDE S/P/B 106 100 - 108 MMOL/L CO2 27.3 21 - 32 MMOL/L CALCIUM 9.0 8.5 - 10.1 MG/DL BILIRUBIN TOTAL S/P/B 0.2 0.2 - 1.2 MG/DL TOTAL PROTEIN S/P/B 6.9 6.4 - 8.2 G/DL ALBUMIN S/P/B 3.7 3.4 - 5.0 G/DL AST 17 15 - 37 U/L ALT 19 14 - 55 U/L ALKALINE PHOSPHATASE S/P/B 65 50 - 136 U/L ANION GAP 8.7 5 - 15 MMOL/L BUN CREATININE RATIO 20.5 6 - 26 A/G RATIO 1.2 1.0 - 2.0 RATIO GFR ESTIMATE >90 >90 ML/MIN/1.73 M2 TROPONIN, QUANT Result Value Ref Range TROPONIN I HIGH SENSITIVITY <4 <51 ng/L D-DIMER, QUANTITATIVE Result Value Ref Range D-DIMER <215 0 - 500 ng[FEU]/mL SED RATE, ERYTHROCYTE (ESR) Result Value Ref Range ESR 15 0 - 20 MM/HR IMAGING STUDIES No orders to display ED Course / Medical Decision Making Pt with chest with negative Trop and ddimer. Has previously had CXR. Pain improved with analgesia here. Will place on steroids given skin hypersensitivity. Plan outpt f/u. Medications dexamethasone PF (DECADRON) injection 8 mg (has no administration in time range) morphine injection 2 mg (2 mg Intravenous Given 10/20/22345) Clinical Impression Chest wall pain (Primary) Current Discharge Medication List START taking these medications Details methylPREDNISolone, GHADA, (MEDROL DOSEPAK) 4 MG tablet Take 0.5 tablets (2 mg total) by mouth daily.6 TABLETS ON DAY ONE, 5 TABLETS DAY TWO, 4 TABLETS DAY THREE, 3 TABLETS DAY FOUR, 2 TABLETS DAY FIVE, AND 1 TABLET DAY SIX Qty: 1 each, Refills: 0 Class: Eprescribe Pharmacy: [id number] AT [facility] [address] [facility] (Ph #: [phone]) Disposition: Discharge Follow-Up: Fiona Parkinson MD [address] [facility] [address] [facility] [address] Schedule an appointment as soon as possible for a visit in 3 days SHARON YEPEZ MD 10/20/2022 Sharon Yepez MD 10/20/22 0523 ZIFF DAVIS * Amy Bansal RN - 10/20/2022 3:05 AM CST Patient is a/o x4. Patient states that chest pain started a week ago. Patient states that the pain is under L side. ZIFF DAVIS documented in this encounter Plan of Treatment Not on file documented as of this encounter Procedures Procedure Name Priority Date/Time Associated Diagnosis Comments TROPONIN, QUANT STAT 10/20/2022 3:31 AM CEO ZIFF DAVIS SED RATE, ERYTHROCYTE (ESR) STAT 10/20/2022 3:18 AM CEO ZIFF DAVIS COMPREHENSIVE METABOLIC PANEL STAT 10/20/2022 3:18 AM CEO ZIFF DAVIS D-DIMER, QUANTITATIVE STAT 10/20/2022 3:18 AM CEO ZIFF DAVIS CBC W/DIFF AUTOMATED STAT 10/20/2022 3:18 AM CEO ZIFF DAVIS ECG 12-LEAD Routine 10/20/2022 3:17 AM CEO ZIFF DAVIS documented in this encounter Results * TROPONIN, QUANT (10/20/2022 3:31 AM CEO ZIFF DAVIS) Pathologist [facility] TROPONIN I HIGH SENSITIVITY <4 <51 ng/L 10/20/2022 3:55 AM CEO ZIFF DAVIS [facility] Comment: HIGH DOSES OF BIOTIN, TROPONIN-SPECIFIC AUTOANTIBODIES, AND ANTIBODY THERAPY CONTAINING HAMA MAY INTERFERE WITH THIS TEST RESULT. CORRELATION TO CLINICAL HISTORY AND PRESENTATION RECOMMENDED. 10/20/2022 3:31 AM CEO ZIFF DAVIS us Sharon Yepez MD LABORATORY Final Resul t Performing Organization Address City/[facility]/ZIP Co de Phone Number [facility] [address] [place] [address], [place] [phone] * SED RATE, ERYTHROCYTE (ESR) (10/20/2022 3:18 AM CEO ZIFF DAVIS) Pathologist [facility] ESR 15 0 - 20 MM/HR 10/20/2022 4:42 AM CEO ZIFF DAVIS [facility] 10/20/2022 3:18 AM CEO ZIFF DAVIS us Sharon Yepez MD LABORATORY Final Resul t Performing Organization Address City/[facility]/ZIP Co de Phone Number [facility] [address] [place] [address], [place] [phone] * D-DIMER, QUANTITATIVE (10/20/2022 3:18 AM CEO ZIFF DAVIS) Pathologist [facility] D-DIMER <215 0 - 500 ng{FEU}/mL 10/20/2022 3:48 AM [facility] Comment: D-Dimer values less than or equal to 500 ng/mL FEU have a negative predictive value of >95% for exclusion of deep vein thrombosis and pulmonary embolism. In patients over 50 (who tend to have higher normal baseline D-Dimer values), recent studies suggest age-adjusted D-Dimer cutoff values (calculated as: age [years] x 10 ng/mL) result in equivalent outcomes and no additional false negative findings. 10/20/2022 3:18 AM CEO ZIFF DAVIS Sharon Yepez MD LABORATORY Final Resul t [facility] [address] [place] [address], * COMPREHENSIVE METABOLIC PANEL (10/20/2022 3:18 AM CEO ZIFF DAVIS) [facility] GLUCOSE 98 70 - 99 MG/DL 10/20/2022 3:45 AM [facility] BUN 15 7 - 18 MG/DL 10/20/2022 3:45 AM [facility] CREATININE S/P/B 0.73 0.55 - 1.02 MG/DL 10/20/2022 3:45 AM [facility] SODIUM S/P/B 142 136 - 145 MMOL/L 10/20/2022 3:45 AM [facility] POTASSIUM S/P/B 3.7 3.5 - 5.1 MMOL/L 10/20/2022 3:45 AM [facility] CHLORIDE S/P/B 106 100 - 108 MMOL/L 10/20/2022 3:45 AM CEO ZIFF DAVIS [facility] CO2 27.3 21 - 32 MMOL/L 10/20/2022 3:45 AM [facility] CALCIUM S/P/B 9.0 8.5 - 10.1 MG/DL 10/20/2022 3:45 AM [facility] BILIRUBIN TOTAL S/P/B 0.2 0.2 - 1.2 MG/DL 10/20/2022 3:45 AM [facility] TOTAL PROTEIN S/P/B 6.9 6.4 - 8.2 G/DL 10/20/2022 3:45 AM [facility] ALBUMIN S/P/B 3.7 3.4 - 5.0 G/DL 10/20/2022 3:45 AM [facility] AST 17 15 - 37 U/L 10/20/2022 3:45 AM [facility] ALT 19 14 - 55 U/L 10/20/2022 3:45 AM [facility] ALKALINE PHOSPHATASE S/P/B 65 50 - 136 U/L 10/20/2022 3:45 AM [facility] ANION GAP 8.7 5 - 15 MMOL/L 10/20/2022 3:45 AM [facility] BUN CREATININE RATIO 20.5 6 - 26 10/20/2022 3:45 AM [facility] A/G RATIO 1.2 1.0 - 2.0 RATIO 10/20/2022 3:45 AM [facility] GFR ESTIMATE >90 >90 ML/MIN/1.7 3 M2 10/20/2022 3:45 AM [facility] Comment: NOTE: eGFR is not calculated for patients <18 years of age. This is an estimated GFR calculation using the new CKD EPI creatinine equation without race and so does not require a correction factor for race. This estimated GFR should not be used for calculating drug doses. 10/20/2022 3:18 AM CEO ZIFF DAVIS Sharon Yepez MD LABORATORY Final Resul t [facility] [address] [facility] [place] [address], [place] [phone] * (ABNORMAL) CBC W/DIFF AUTOMATED (10/20/2022 3:18 AM CEO ZIFF DAVIS) WBC 8.9 4.4 - 11.0 x10'3/uL 10/20/2022 3:37 AM [facility] RBC 4.24(L) 4.50 - 5.10 x10'6/uL 10/20/2022 3:37 AM [facility] HGB 11.8(L) 12.3 - 15.3 G/DL 10/20/2022 3:37 AM [facility] HCT 36.1 35.9 - 44.6 % 10/20/2022 3:37 AM [facility] MCV 85.1 80.0 - 96.0 FL 10/20/2022 3:37 AM [facility] MCH 27.8 25.3 - 30.9 PG 10/20/2022 3:37 AM [facility] MCHC 32.7 31.0 - 34.1 G/DL 10/20/2022 3:37 AM [facility] RDW 14.3 12.4 - 15.1 % 10/20/2022 3:37 AM [facility] PLT 177 151 - 353 x10'3/uL 10/20/2022 3:37 AM [facility] MPV 13.3(H) 9.6 - 12.0 FL 10/20/2022 3:37 AM CEO ZIFF DAVIS [facility] RBC MORPHOLOGY NORMAL 10/20/2022 3:37 AM [facility] PLT MORPH. NORMAL 10/20/2022 3:37 AM [facility] WBC MORPHOLOGY NORMAL 10/20/2022 3:37 AM [facility] LYMPHOCYTES % 26.2 15.8 - 45.0 % 10/20/2022 3:37 AM [facility] NEUTROPHILS % 63.3 42.1 - 71.9 % 10/20/2022 3:37 AM [facility] MONOCYTES % 8.1 5.7 - 12.5 % 10/20/2022 3:37 AM [facility] EOSINOPHILS 1.4 0.0 - 5.6 % 10/20/2022 3:37 AM [facility] BASOPHILS 0.7 0.0 - 1.3 % 10/20/2022 3:37 AM [facility] ABS. NEUTROPHILS 5.62 1.40 - 6.00 x10'3/uL 10/20/2022 3:37 AM [facility] IMMATURE GRANS % 0.3 0.0 - 0.5 % 10/20/2022 3:37 AM [facility] ABS. LYMPHOCYTES 2.32 0.80 - 4.70 x10'3/uL 10/20/2022 3:37 AM [facility] 10/20/2022 3:18 AM CEO ZIFF DAVIS us Sharon Yepez MD LABORATORY Final Resul t [facility] [address] [place] [address], * ECG 12 lead (10/20/2022 3:17 AM CEO ZIFF DAVIS) 10/20/2022 3:17 AM CEO ZIFF DAVIS Narrative [facility]) RAD - 10/20/2022 11:44 AM CEO ZIFF DAVIS ?[facility] ? Test Date: ?2022-10-20 Pat Name: ? ANGELA KIRKLAND ? Department: ?? 85 ? Room: ? EXAM 101 Gender: ? Female ? Music Mixer: ?? : ?2000 ? Requested By: SHARON YEPEZ Order Number: [id number] ? Reading MD: ?? Cyril Leger ? Measurements Intervals ?[place] ? Rate: ? 65 ? P: ?267 NC: ? 130 ?QRS: ?-83 QRSD: ? 88 ? T: ?90 QT: ? 383 ? QTc: ?400 ? Interpretive Statements JUNCTIONAL RHYTHM LEFT AXIS DEVIATION ST DEVIATION AND MODERATE T-WAVE ABNORMALITY, CONSIDER ANTERIOR ISCHEMIA ?? Compared to ECG 05/06/2021 07:45:27 Junctional rhythm now present Left-axis deviation now present Possible ischemia now present Sinus rhythm no longer present T-wave abnormality still present ZIFF DAVIS Procedure Note Cyril Leger MD - 10/20/2022 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 Compared to ECG 05/06/2021 07:45:27 Junctional rhythm now present Left-axis deviation now present Possible ischemia now present Sinus rhythm no longer present T-wave abnormality still present ZIFF DAVIS us Sharon Yepez MD ECG ORDERABLES Final Resul t [facility] ([facility]) RAD documented in this encounter Visit Diagnoses Diagnosis Chest wall pain- Primary Painful respiration documented in this encounter Administered Medications Inactive Administered Medications - up to 3 most recent administrations Medication Order MAR Action Action Date Dose Rate Site dexamethasone PF (DECADRON) injection 8 mg 8 mg, Intravenous, Once, 1 dose, On 10/20/22 at 0500, Administer slowly over 1-4 minutes. Given 10/20/2022 5:05 AM CEO ZIFF DAVIS 8 mg morphine injection 2 mg 2 mg, Intravenous, Once, 1 dose, On 10/20/22 at 0330 Given 10/20/2022 3:46 AM CEO ZIFF DAVIS 2 mg documented in this encounter Active and Recently Administered Medications Times are shown in CEO ZIFF DAVIS. Scheduled Medication Order 10/18/2022 10/19/2022 10/20/2022 dexamethasone PF (DECADRON) injection 8 mg (COMPLETED) 8 mg, Intravenous, Once, 1 dose, On 10/20/22 at 0500, Administer slowly over 1-4 minutes. 0505 (Given - Provid er: Amy Bansal RN) morphine injection 2 mg (COMPLETED) 2 mg, Intravenous, Once, 1 dose, On 10/20/22 at 0330 0346 (Given - Provid er: Amy Bansal RN) documented in this encounter Additional Health Concerns Assessment Noted Time PHQ-9 Depression Total Score: 14 022 1:17 PM CEO ZIFF DAVIS documented as of this encounter Care Teams Supervisor Enrobing Relationship Specialty Start Date End Date Fiona Parkinson MD PCP - General FAMILY PRACTICE 10/08/22 04/14/23 documented as of this encounter
--- OUTSIDE RECORDS SUMMARY | 2024-11-14 19:16 | XMS_ITS | Encounter Summary ---
Author Organization [facility] Address [address] [place] [address]. [place], [place] [id number] [place] [id number] Care Team Providers Care Swabber Name Role Phone Fiona Parkinson MD Primary Care Pr ovider Unavailable Reason for Visit * Reason Comments Rib Pain ER F/U Encounter Details Date Type Department Care Team (Late st Contact Info) Description 10/15/2022 1:00 PM [facility] Office Visit [facility] - [address] [place] [address] Fiona Parkinson MD Rib Pain; ER F/U Social History Tobacco Use Types Packs/Day Years [...] suspected to have Coronavirus/COVID-19? No / Unsure 10/15/2022 12:55 PM [facility] documented as of this encounter Last Filed Vital Signs Vital Sign Reading Time Taken Comments Blood Pressure 114/74 10/15/2022 1:06 PM [facility] Pulse 76 10/15/2022 1:06 PM [facility] Temperature 37.1 ??C (98.8 ??F) 10/15/2022 1:06 PM CS T Respiratory Rate 18 10/15/2022 1:06 PM [facility] Oxygen Saturation 97% 10/15/2022 1:06 PM [facility] Inhaled Oxygen Concentration - - Weight 77.1 kg (170 lb) 10/15/2022 1:06 PM [facility] Height 161.3 cm (5' 3.5 ) 10/15/2022 1:06 PM [facility] Body Mass Index 29.64 10/15/2022 1:06 PM [facility] documented in this encounter Functional Status * [...] R N Active documented in this encounter Patient Instructions * Patient Instructions* Fiona Parkinson MD - 10/15/2022 1:00 PM [facility] You received a toradol injection today. You can take diclofenac 8 hours later. Do not take any ibuprofen or motrin with this. Diclofenac is 1 tablet every 8 hours if needed for pain. You can take tylenol 1000 mg in between every 8 hours. I have sent tabatha to your pharmacy for nausea. [facility] documented in this encounter Progress Notes * Fiona Parkinson MD - 10/15/2022 1:00 PM CST Images from the original note were not included. Angela Peterson is a 21-year-old female who presents today accompanied by mother for evaluation of Chief Complaint Patient presents with ??? Rib Pain ??? ER F/U History of Present Illness: Patient is here today due to left-sided chest pain and ER follow-up -She had bronchitis about 3 weeks ago and started to recover however last week after her cough started to get better she developed pain on the left side of her chest just below her left breast and pain with taking a deep breath and touch to that area -She went to the ER and her well score was quite low so D-dimer was not required; she is not on control and she has not traveled anywhere in a car or in a plane for long periods; she is no swelling of her lower legs -They did do a chest x-ray which was normal and there is no concern for pneumonia however they advised that she possibly has pleurisy versus a muscle strain -They advised her to take ibuprofen 600 mg every 6 hours however she states is not really helping with the pain -She is tearful because she states her boyfriend tried to lay on her chest and it was extremely painful for her and her cat came and jumped on her chest and she started crying because of how painful it was; even light touch causes a lot of pain -She has no rash in this area or vesicles that have erupted -She also states that when the pain first started a few days ago later that day she went out to eatand thinks she may have had food poisoning; she has been feeling very nauseous and states that she is not finding any type of food appetizing at this time even her favorite dishes -She does feel a bit nauseous; her friend who also ate out with her also had issues with diarrhea and some abdominal cramping and so they think it may have been something that they ate -She also notes that in the past she developed these vesicular lesions all over her body that is Spreading and she was hospitalized for about 4 days back in January 2022; the patient on IV antibiotics but cannot tell why these vesicles were occurring and she developed erythema of her skin -She saw dermatology and they ordered some test to look for any autoimmune disorders which was negative -Her mom states that autoimmune disorders runs both on her side and on the patient's father side -Dermatology stated that she should come back if she develops these vesicles again or lesions so that they can do a biopsy but she has not had recurrence of this recently Past Medical History: Diagnosis Date ??? Depression 2016 ??? Misophonia 2014 Past Surgical History: Procedure Laterality Date ??? ABDOMINAL SURGERY cyst on ovary, pt. not sure whick side. aug 2018 ??? CLOSED RX NOSE FRACTURE 09/2021 ??? EYE SURGERY ??? FRACTURE SURGERY right 5th finger ??? TONSILLECTOMY Family History Problem Relation Name Age of Onset ??? Thyroid Disease Mother ??? Hypertension Father Social History Tobacco Use ??? Smoking status: Never ??? Smokeless tobacco: Never Vaping Use ??? Vaping Use: Never used Substance Use Topics ??? Alcohol use: Not Currently Comment: once ever few months ??? Drug use: Yes Frequency: 1.0 times per week Types: Marijuana Health Maitenance due was reviewed. Medications: Current Outpatient Medications Medication Sig Dispense Refill ??? buPROPion SR (WELLBUTRIN SR) 150 MG 12 hr tablet Take 1 tablet every morning x 3 days, then increase to 1 tablet twice a day 60 tablet 2 ??? diclofenac EC (VOLTAREN) 50 MG tablet Take 1 tablet (50 mg total) by mouth 3 (three) times daily. 30 tablet 0 ??? ondansetron (ZOFRAN-ODT) 4 MG disintegrating tablet 1 tablet every 4-6 hours as needed for nausea/vomiting 20 tablet 0 ??? propranolol (INDERAL) 10 MG tablet Take 1 tablet (10 mg total) by mouth 2 (two) times daily. 60tablet 2 ??? albuterol sulfate HFA 108 (90 Base) MCG/ACT inhaler ??? gabapentin (NEURONTIN) 100 MG capsule Take 1 capsule (100 mg total) by mouth nightly. 30 capsule 0 No current facility-administered medications for this visit. Allergies: Allergies Allergen Reactions ??? Sulfa Antibiotics Hives ??? Vancomycin Infusion Reaction Fever, chills ??? Clindamycin Hives Review of Systems: An appropriate review of systems was conducted with the pertinent positives and negatives as noted above in the HPI also including: Review of Systems Constitutional: Negative for chills and fever. Respiratory: Negative for shortness of breath. Cardiovascular: Negative for palpitations. Gastrointestinal: Negative for abdominal pain and vomiting. Objective / Physical Exam: Filed Vitals: 10/15/22 1306 BP: 114/74 Pulse: 76 Resp: 18 Temp: 98.8 ??F (37.1 ??C) TempSrc: Temporal SpO2: 97% Weight: 77.1 kg (170 lb) Height: 5' 3.5 (1.613 m) Body mass index is 29.64 kg/m??. Physical Exam Vitals reviewed. Constitutional: General: She is not in acute distress. Appearance: Normal appearance. She is well-developed. She is not ill-appearing, toxic-appearing or diaphoretic. HENT: Head: Normocephalic and atraumatic. Mouth/Throat: Oropharynx is clear and moist. Eyes: General: Right eye: No discharge. Left eye: No discharge. Extraocular Movements: Extraocular movements intact. Conjunctiva/sclera: Conjunctivae normal. Cardiovascular: Rate and Rhythm: Normal rate and regular rhythm. Pulses: Normal pulses. Heart sounds: Normal heart sounds. No murmur heard. No friction rub. No gallop. Pulmonary: Effort: Pulmonary effort is normal. No respiratory distress. Breath sounds: Normal breath sounds. No wheezing, rhonchi or rales. Chest: Comments: There is no rash or redness on the left side of her chest; she was wearing a sports bra during this examination Abdominal: General: Bowel sounds are normal. There is no distension. Palpations: Abdomen is soft. Tenderness: There is no abdominal tenderness. There is no guarding. Musculoskeletal: Cervical back: Normal range of motion and neck supple. Skin: General: Skin is warm. Neurological: Mental Status: She is alert and oriented to person, place, and time. Psychiatric: Behavior: Behavior normal. Comments: Tearful on examination Lab / In Office Testing / Radiograph review: No results found for this visit on 10/15/22. Assessment/Plan: 1. Chest wall pain ketorolac (TORADOL) injection 30 mg diclofenac EC (VOLTAREN) 50 MG tablet gabapentin (NEURONTIN) 100 MG capsule 2. Allodynia diclofenac EC (VOLTAREN) 50 MG tablet gabapentin (NEURONTIN) 100 MG capsule 3. Nausea ondansetron (ZOFRAN-ODT) 4 MG disintegrating tablet -The patient has chest wall pain and allodynia; this may not be pleurisy as she has a lot of pain with very light touch of the skin on the left side of the anterior chest and on the posterior aspect of the left side of the chest as well -Gave her Toradol injection 30 mg in the office today; switched her from ibuprofen to Voltaren 50 mg 3 times daily with food; advised to follow bland diet for now -Prescribe Zofran today for her nausea -She likely needs gabapentin as there may be nerve related issues here; we will see how she does onthe medication I spent 40 minutes today reviewing the patient's medical record, obtaining history, performing an exam, ordering medications, tests, and/or procedures, documenting in the medical record and counseling and educating the patient and family . Followup Plan: Return in about 3 weeks (around 11/05/2022) for follow-up propranolol and allodynia. Instructions on the sign/symptoms of worsening problems were given and verbal acknowledgement of understanding was noted. Those present were instructed to call the office during business hours or go to convenient care when the office is closed. If it's an emergency then go to an ER if necessary to address these worsening conditions. The mother and patient verbalized understanding and agreed to the plan. All questions answered to the patient's verbalized satisfaction. Patient Instructions You received a toradol injection today. You can take diclofenac 8 hours later. Do not take any ibuprofen or motrin with this. Diclofenac is 1 tablet every 8 hours if needed for pain. You can take tylenol 1000 mg in between every 8 hours. I have sent zofran to your pharmacy for nausea. Fiona Parkinson MD Family Medicine [facility] documented in this encounter Plan of Treatment Not on file documented as of this encounter Visit Diagnoses Diagnosis Chest wall pain- Primary Painful respiration Allodynia Disturbance of skin sensation Nausea Nausea alone documented in this encounter Administered Medications Inactive Administered Medications - up to 3 most recent administrations Medication Order MAR Action Action Date Dose Rate Site ketorolac (TORADOL) injection 30 mg 30 mg, Intramuscular, Once, 1 dose, On 10/15/22 at 1415Indications:Chest wall pain Given 10/15/2022 2:18 PM [facility] 30 mg Left Upper Outer Quadrant documented in this encounter Additional Health Concerns Assessment Noted Time PHQ-9 Depression Total Score: 14 022 1:17 PM [facility] documented as of this encounter Care Teams Swabber Relationship Specialty Start Date End Date Fiona Parkinson MD PCP - General FAMILY PRACTICE 10/08/22 04/14/23 documented as of this encounter
--- OUTSIDE RECORDS SUMMARY | 2024-11-14 19:16 | XMS_ITS | Encounter Summary ---
Author Organization [facility] - [facility] Address [address] [place] [address]. [place], [place] [id number] [place] [id number] Care Team Providers Care Heel Seat Fitter Name Role Phone Fiona Parkinson MD Primary Care Pr ovider Unavailable Reason for Visit * Reason Comments Annual With pap. Requests s td testing Encounter Details Date Type Department Care Team (Late st Contact Info) Description 01/24/2023 10:40 AM CDT Office Visit [facility] - [address] [place] [address] Fiona Parkinson MD Annual (With pap. Requests std testing) Social History Tobacco Use Types Packs/Day Years [...] AM CDT documented as of this encounter Last Filed Vital Signs Vital Sign Reading Time Taken Comments Blood Pressure 118/66 01/24/2023 10:47 AM CDT Pulse 74 01/24/2023 10:47 AM CDT Temperature 36.9 ??C (98.4 ??F) 01/24/2023 10:47 AM C DT Respiratory Rate 18 01/24/2023 10:47 AM CDT Oxygen Saturation 99% 01/24/2023 10:47 AM CDT Inhaled Oxygen Concentration - - Weight 76.7 kg (169 lb) 01/24/2023 10:47 AM CDT Height 161.3 cm (5' 3.5 ) 01/24/2023 10:47 AM CD T Body Mass Index 29.47 01/24/2023 10:47 AM CDT documented in this encounter Functional [...] * Patient Instructions* Fiona Parkinson MD - 01/24/2023 10:40 AM CDT Labs and urine testing collected today. Your next physical is due in 1 year. documented in this encounter Progress Notes * Fiona Parkinson MD - 01/24/2023 10:40 AM CDT Angela Peterson is a 22-year-old female who presents today for her annual physical examination & health maintenance discussion. Issues the patient specifically wishes to address include: -Patient is here for her physical today -She would like STD screening; her and her boyfriend are in an open relationship; she is states that she does not always have protection and so would like STD screening -She has had chlamydia in the past -She does not have any symptoms today -Would like HIV testing again today; in the past it was negative -She is already had hepatitis C screening that was done in March 2022 and was negative -She is not on any control; states that she did have an IUD previously but it kept dislodgingand so it had to be taken out -Her previous Pap smear a year ago showed ASCUS with HPV positive but was negative for HPV 16 and 18 Past Medical History: Diagnosis Date ??? Depression 2016 ??? Misophonia 2014 The above PMHx was reviewed with patient and updated in the medical record. Past Surgical History: Procedure Laterality Date ??? ABDOMINAL SURGERY cyst on ovary, pt. not sure whick side. aug 2018 ??? CLOSED RX NOSE FRACTURE 09/2021 ??? EYE SURGERY ??? FRACTURE SURGERY right 5th finger ??? TONSILLECTOMY The above PSHx was reviewed with patient and updated in the medical record. Patient Active Problem List Diagnosis ??? Pelvic pain ??? Blood in stool ??? Chronic daily headache ??? Chronic diarrhea ??? Distal radius fracture, right ??? Generalized abdominal pain ??? Headache ??? Superficial thrombophlebitis of left upper extremity ??? ASCUS with positive high risk HPV cervical ??? Has multiple sexual partners ??? Anxiety ??? History of chlamydia The above Problem List was reviewed with patient and updated in the medical record. Patient Care Team: Fiona Parkinson MD as PCP - General (FAMILY PRACTICE) The above Patient Care Team was reviewed with patient and updated in the medical record. Family History Problem Relation Name Age of Onset ??? Thyroid Disease Mother ??? Hypertension Father The above Family Medical Hx was reviewed with patient and updated in the medical record. Social History Socioeconomic History ??? Marital status: Single Spouse name: Not on file ??? Number of children: Not on file ??? Years of education: Not on file ??? Highest education level: Not on file Occupational History ??? Not on file Tobacco Use ??? Smoking status: Never ??? Smokeless tobacco: Never Vaping Use ??? Vaping Use: Never used Substance and Sexual Activity ??? Alcohol use: Not Currently Comment: once ever few months ??? Drug use: Yes Frequency: 1.0 times per week Types: Marijuana ??? Sexual activity: Not on file Other Topics Concern ??? Not on file Social History Narrative ??? Not on file Social Determinants of Health Financial Resource Strain: Not on file Food Insecurity: Not on file Transportation Needs: Not on file Physical Activity: Not on file Stress: Not on file Social Connections: Not on file Intimate Partner Violence: Not on file Housing Stability: Not on file Menstrual / OB History: OB History No obstetric history on file. Patient's last menstrual period was Patient's last menstrual period was 01/02/2023 (exact date).. Current Outpatient Medications Medication Sig Dispense Refill ??? albuterol sulfate HFA 108 (90 Base) MCG/ACT inhaler (Patient not taking: Reported on 11/19/2022) No current facility-administered medications for this visit. Allergies Allergen Reactions ??? Sulfa Antibiotics Hives ??? Vancomycin Infusion Reaction Fever, chills ??? Clindamycin Hives Health Maintenance Due Topic Date Due ??? Cervical Cancer Screening Never done ??? Hepatitis C Never done ??? COVID-19 Vaccine (3 - Booster for Pfizer series) 06/26/2021 ??? DTaP, Tdap and Td Vaccines (7 - Td or Tdap) 05/07/2022 ??? Influenza Adult (1) 08/11/2022 The Health Maintenance Record was reviewed with patient and updated in the medical record. Immunization History Administered Date(s) Administered ??? Dtap 02/18/2001, 04/21/2001, 06/17/2001, 03/23/2002, 05/29/2006 ??? Fluarix 11/20/2013 ??? HPV4 (Gardasil) 12/22/2010, 01/31/2011, 07/24/2011 ??? Hepatitis A (Generic) 06/05/2018 ??? Hepatitis A Vaccine - 2 Dose 06/09/2010 ??? Hepatitis B Pediatric 2000 ??? Hepatitis B/Hib 3 Dose Schedule 02/18/2001, 09/22/2001 ??? Hib 04/21/2001, 03/23/2002 ??? Influenza 07/24/2011, 11/26/2012 ??? Influenza Adult (Generic) 09/30/2014, 01/20/2020 ??? MMR 01/23/2002, 03/23/2002, 05/29/2006 ??? Menactra 05/07/2012, 06/05/2018 ??? PFIZER COVID-19 (ORIGINAL FORMULATION, PURPLE CAP), MRNA, LNP-S, PF, 30 MCG/0.3 ML DOSE 04/03/2021, 05/01/2021 ??? Pneumococcal (Prevnar 7) 02/18/2001, 06/17/2001, 10/04/2001, 01/23/2002 ??? Polio Ipv (Generic) 02/18/2001, 04/21/2001, 03/23/2002, 05/29/2006 ??? Tdap (Adacel) 05/07/2012 ??? Varicella Vaccine 01/23/2002, 06/09/2010 The ImmunizationRecord was reviewed with patient and updated in the medical record. Patient is 22-year-old as of today IF OVER 65 or increased risk factors (Prev fx, glucocorticoid tx, parental hip fx, low body weight,cigarette smoking, EtOH consumption, RA, risks for secondary osteoporosis) BONE DENSITOMETRY? Not required at this age. The subject of an Advanced Directive was not addressed with this patient ROS Review of Systems Constitutional: Negative for chills and fever. Respiratory: Negative for cough and shortness of breath. Cardiovascular: Negative for chest pain, palpitations and leg swelling. Gastrointestinal: Negative for abdominal pain, nausea and vomiting. Neurological: Focal weakness: PHYSICAL EXAM Filed Vitals: 01/24/23 1047 BP: 118/66 Pulse: 74 Resp: 18 Temp: 98.4 ??F (36.9 ??C) TempSrc: Temporal SpO2: 99% Weight: 76.7 kg (169 lb) Height: 5' 3.5 (1.613 m) Body mass index is 29.47 kg/m??. General appearance: alert, cooperative and no distress Head: Normocephalic, without obvious abnormality, atraumatic Eyes: conjunctivae clear. PERRL, EOM's intact Ears: External ears normal. Canals clear. TM's normal. Nose: Nares normal, no rhinorrhea Throat: Lips, mucosa, and tongue normal. Teeth and gums normal, oropharynx clear, no erythema and no tonsillar enlargement or exudates Neck: Neck supple. No adenopathy. Thyroid symmetric, normal size, Back: symmetric, no curvature. ROM normal. No CVA tenderness. Breasts: Deferred Lungs: clear to auscultation Heart: regular rate and rhythm, S1, S2 normal, no murmur, click, rub or gallop Abdomen: abdomen is soft without significant tenderness, masses, organomegaly or guarding Pelvic exam: pap smear obtained today, normal vagina and vulva and vaginal lesion noted ectropion at the 9 o'clock position but is quite small; on the cervix at the 5 o'clock position there is some erythema; no abnormal vaginal discharge; no bleeding; cervical os is closed; The sensitive parts of the examination were performed with Leela Arellano MA as a bible reader. Extremities: extremities normal, atraumatic, no cyanosis or edema Pulses: Pulses 2+ and symmetric Skin: New bellybutton piercing with mild erythema on the upper aspect of her bellybutton; no pus discharge; no tenderness to palpation Lymph nodes: Inguinal nodes normal and No palpable lymph nodes Neurologic: Alert and oriented X 3, normal strength and tone. Normal symmetric reflexes. Normal coordination and gait. Psych: mood and affect are within normal limits, pt is a good historian and no memory problems werenoted Lab / In Office Testing / Radiograph review: No results found for this visit on 01/24/23. Assessment/Plan: 1. Annual physical exam Cytopath Cerv/Vag Thin Layer HIV 1 ANTIGEN(S), WITH HIV-1 AND HIV-2 ANTIBODIES CHLAM/GC/TRICHOMONAS PROFILE SYPHILIS/RPR/VDRL; QUAL (SJS/SFL/OSMAR Only) VENIPUNC ARM DRAW 2. ASCUS with positive high risk HPV cervical Cytopath Cerv/Vag Thin Layer 3. Has multiple sexual partners HIV 1 ANTIGEN(S), WITH HIV-1 AND HIV-2 ANTIBODIES CHLAM/GC/TRICHOMONAS PROFILE SYPHILIS/RPR/VDRL; QUAL (SJS/SFL/OSMAR Only) VENIPUNC ARM DRAW 4. Screening examination for STD (sexually transmitted disease) HIV 1 ANTIGEN(S), WITH HIV-1 AND HIV-2 ANTIBODIES CHLAM/GC/TRICHOMONAS PROFILE SYPHILIS/RPR/VDRL; QUAL (SJS/SFL/OSMAR Only) VENIPUNC ARM DRAW 5. History of chlamydia -Her physical was completed today; Pap smear obtained due to ASCUS with HPV positive testing a yearago -If it shows ASCUS can then we will have to repeat her Pap smear in 1 year; if her findings have progressed past ASCUS then she will need to be referred for a colposcopy -She is an open relationship and so has multiple sexual partners and would like STD screening today -Did have chlamydia in the past -Testing was done today -Advised the importance of using condoms to prevent the spread of infection Followup Plan: RTC in 1 year for physical Discussed the patient's BMI with her. The BMI is 29.47 . Counseling Time ~10 min (Diet & Activity Modification/ Medication/ Cardiovascular Screening / Cancer (i.e. Skin, Colon, Breast, and Cervical cancer screening), reviewing medical records, and coordination of care with other providers. Instructions on the sign/symptoms of worsening problems were given and verbal acknowledgement of understanding was noted. Those present were instructed to call the office or go to an ER if necessary to address these worsening conditions. The patient verbalized understanding and agreed to the plan. Patient Instructions Labs and urine testing collected today. Your next physical is due in 1 year. Fiona Parkinson MD Family Medicine [facility] documented in this encounter Plan of Treatment Not on file documented as of this encounter Procedures Procedure Name Priority Date/Time Associated Diagnosis Comments COLLECTION VENOUS BLOOD VENIPUNCTURE Routine 01/24/2023 12:09 PM CDT Annual physical exam Has multiple sexual partners Screening examination for STD (sexually transmitted disease) CHLAM/GC/TRICHOMONAS PROFILE Routine 01/24/2023 12:09 PM CDT Annual physical exam Has multiple sexual partners Screening examination for STD (sexually transmitted disease) HIV 1 ANTIGEN(S), WITH HIV-1 AND HIV-2 ANTIBODIES Routine 01/24/2023 12:09 PM CDT Annual physical exam Has multiple sexual partners Screening examination for STD (sexually transmitted disease) SYPHILIS/RPR/VDRL; QUAL Routine 01/24/2023 12:09 PM CDT Annual physical exam Has multiple sexual partners Screening examination for STD (sexually transmitted disease) documented in this encounter Results * SYPHILIS/RPR/VDRL; QUAL (SJS/SFL/OSMAR Only) (01/24/2023 12:09 PM CDT) RPR NON-REACTIV E NON-REACTI VE 01/25/2023 11:35 AM CDT [facility] 01/24/2023 12:0 9 PM CDT Fiona Parkinson MD LABORATORY Final Result [facility] [address] [place] [address], [id number] * CHLAM/GC/TRICHOMONAS PROFILE (01/24/2023 12:09 PM CDT) SPEC DESCRIPTION URINE 01/25/20 23 6:56 PM CDT [facility] CHLAMYDIA RNA TMA NEGATIVE NEGATIVE 023 4:06 PM CDT [facility] Comment:PERFORMED BY NUCLEIC ACID AMPLIFICATION N.GONORRHOEAE RNA TMA NEGATIVE NEGATIVE 01/25/2023 4:06 PM CDT [facility] Comment:PERFORMED BY NUCLEIC ACID AMPLIFICATION TRICHOMONAS NEGATIVE NEGATIVE 01/25/2023 4:06 PM CDT [facility] Comment:PERFORMED BY NUCLEIC ACID AMPLIFICATION URINE SPECIMEN / Unknown 01/24/2023 12:09 PM CDT Fiona Parkinson MD MICROBIOLOGY - G ENERAL ORDERABLES Final Result [facility] [address] [place] [address], [place] [phone] -[facility] [place] [address] [place] [address], [place] [phone] * HIV 1 ANTIGEN(S), WITH HIV-1 AND HIV-2 ANTIBODIES (01/24/2023 12:09 PM CDT) HIV 1/2 AB+ HIV1 P24 AG NON-REACTI VE NON-REACTI VE 01/24/2023 9:40 PM CDT [facility] Comment:HIV 1 p24 Ag and HIV 1/ HIV 2 Ab not detected. 01/24/2023 12:0 9 PM CDT Fiona Parkinson MD LABORATORY Final Result [facility] [address] [place] [address], [place] [phone] [id number] documented in this encounter Visit Diagnoses Diagnosis Annual physical exam- Primary Routine general medical examination at a health care facility ASCUS with positive high risk HPV cervical Has multiple sexual partners Screening examination for STD (sexually transmitted disease) Screening examination for venereal disease History of chlamydia Personal history of other infectious and parasitic disease documented in this encounter Additional Health Concerns Assessment Noted Time PHQ-9 Depression Total Score: 14 022 1:17 PM FIELD SERVICE CONSULTANT documented as of this encounter Care Teams Heel Seat Fitter Relationship Specialty Start Date End Date Fiona Parkinson MD PCP - General FAMILY PRACTICE 10/08/22 04/14/23 documented as of this encounter
--- OUTSIDE RECORDS SUMMARY | 2024-11-14 19:16 | XMS_ITS | Encounter Summary ---
Author Organization [facility] Address [address] [place] [address]. [place], [place] [address] [place] [address] Care Team Providers Care Departmental Buyer Name Role Phone Cortney Colbert WATER PUMP OPERATOR Primary Care Provider [phone] Encounter Details Date Type Department Care Team (Latest Contact Info) Description 07/06/2021 Travel Social History Tobacco Use Types Packs/Day [...] Exposure Response Date Recorded In the last month, have you been in contact with someone who was confirmed or suspected to have Coronavirus / COVID-19? No / Unsure 07/06/2021 3:05 PM CDT documented as of this encounter Plan of Treatment Not on file documented as of this encounter Visit Diagnoses Not on filedocumented in this encounter Care Teams Departmental Buyer Relationship Specialty Start Date End Date Cortney Colbert NP [facility] [place] [address] PCP - General NURSE PRACTITIONER 05/06/21 10/07/22 documented as of this encounter
--- OUTSIDE RECORDS SUMMARY | 2024-11-14 19:16 | XMS_ITS | Encounter Summary ---
Author Organization [facility] Address [address] [place] [address]. [place], [place] [address] [place] [address] Care Team Providers Care Training And Development Head Name Role Phone Fiona Parkinson MD Primary Care Pr ovider Unavailable Encounter Details Date Type Department Care Team (Latest Contact Info) Description 10/15/2022 Travel Social History Tobacco Use Types Packs/Day [...] Coronavirus/COVID-19? No / Unsure 10/15/2022 12:55 PM TRAINING TECHNICIAN documented as of this encounter Functional Status [...] Depression Total Score: 14 022 1:17 PM TRAINING TECHNICIAN documented as of this encounter Care Teams Training And Development Head Relationship Specialty Start Date End Date Fiona Parkinson MD PCP - General FAMILY PRACTICE 10/08/22 04/14/23 documented as of this encounter
--- OUTSIDE RECORDS SUMMARY | 2024-11-14 19:16 | XMS_ITS | Encounter Summary ---
Author Organization [facility] Address [address] [place] [address]. [place], [place] [address] [place] [address] Care Team Providers Care Director Of Security Name Role Phone Fiona Parkinson MD Primary Care Pr ovider Unavailable Encounter Details Date Type Department Care Team (Late st Contact Info) Description 10/19/2022 - 10/19/2022 11:59 PM [facility] [address] [address] Fiona Parkinson MD Discharge Disposition: Home or [...] suspected to have Coronavirus/COVID-19? No / Unsure 10/18/2022 3:01 PM [facility] documented as of this encounter Functional Status [...] HFA 108 (90 Base) MCG/ACT inhaler 10/06/2022 4 buPROPion SR (WELLBUTRIN SR) 150 MG 12 hr tabletIndications:So cial anxiety disorder,Moderate episode of recurrent major depressive disorder ([facility]) Take 1 tablet every morning x [...] by mouth nightly. 30 capsule 10/15/2022 3 ondansetron (ZOFRAN-ODT) 4 MG disintegrating tabletIndications:Na usea 1 tablet every 4-6 hours as needed for nausea/vomitin g 20 tablet 10/15/2022 3 propranolol (INDERAL) 10 MG tabletIndications:So cial anxiety disorder,Other migraine without status migrainosus, not intractable Take 1 tablet (10 mg total) by mouth 2 (two) times daily. 60 tablet 2 10/08/2022 3 documented as of this encounter Plan of Treatment Not on file documented as of this encounter Visit Diagnoses Not on filedocumented in this encounter Additional Health Concerns Assessment Noted Time PHQ-9 Depression Total Score: 14 022 1:17 PM [facility] documented as of this encounter Care Teams Director Of Security Relationship Specialty Start Date End Date Fiona Parkinson MD PCP - General FAMILY PRACTICE 10/08/22 04/14/23 documented as of this encounter
--- OUTSIDE RECORDS SUMMARY | 2024-11-14 19:16 | XMS_ITS | Encounter Summary ---
Author Organization [facility] Address [address] [place] [address]. [place], [place] [address] [place] [id number] Care Team Providers Care J2Ee Developer Name Role Phone Cortney Colbert NP Primary Care Provider [phone] Reason for Visit * Reason Comments Chest Pain Encounter Details Date Type Department Care Team (Late st Contact Info) Description 05/06/2021 7:04 AM CDT - 05/06/2021 10:10 AM CDT Emergency [facility] Emergency Room [id number] [place] [address] Torsten Cramer MD [address] [place] [address] [id number] Chest Pain Discharge Disposition: Home or Self [...] have Coronavirus / COVID-19? No / Unsure 05/06/2021 7:04 AM CDT documented as of this encounter Last Filed Vital Signs Vital Sign Reading Time Taken Comments Blood Pressure 100/69 05/06/2021 8:40 AM CDT Pulse 69 05/06/2021 7:12 AM CDT Temperature 36.3 ??C (97.4 ??F) 05/06/2021 7:12 AM CD T Respiratory Rate 16 05/06/2021 7:12 AM CDT Oxygen Saturation 99% 05/06/2021 9:00 AM CDT Inhaled Oxygen Concentration - - Weight 73 kg (161 lb) 05/06/2021 7:12 AM CDT Height 160 cm (5' 3 ) 05/06/2021 7:12 AM CDT Body Mass Index 28.52 05/06/2021 7:12 AM CDT documented in this encounter Discharge Instructions * Discharge Instructions* Torsten Cramer MD - 05/06/2021 9:40 AM CDT Continue all present medication as prescribed. Fluids. Diet activity as tolerated. Avoid fried fatty greasy foods. Decrease stress. Follow-up with your primary care provider Cortney Colbert in the next 2 to 3 days. Return emergency department for problems concerns * Attachments The following attachments cannot be sent through Care Everywhere. * Anxiety Discharge Instructions, Adult (Georgian) * Tips to Help You [place] in Uncertain Times (Georgian) * Chest Pain That Is Not Caused by the Heart Discharge Instructions (Georgian) documented in this encounter Medications at Time of Discharge busPIRone 5 MG tablet Take 5 mg by mouth 3 (three) times daily as needed. 01/26/2022 sertraline 25 MG tablet Take 25 mg by mouth daily. 01/26/2022 documented as of this encounter ED Notes * Yenny Ritchie RN - 05/06/2021 9:30 AM CDT Resting , mother at bedside, voices no c/o * Yenny Ritchie RN - 05/06/2021 8:30 AM CDT Sprite given per request, mother at bedside, voices no c/o * Torsten Cramer MD - 05/06/2021 7:39 AM CDTAssociated Order(s): EKG Reading [facility] Emergency Department Note Chief Complaint Chief Complaint Patient presents with ??? Chest Pain History of Present Illness 20-year-old white female presents emerge department with mother complaining of right-sided lower chest pain and right upper quadrant abdominal pain. Patient states been intermittent all week. She states it comes when her anxiety increases. Can last somewhere from a few minutes to several hours. Describes as a pressure/sharp sensation. Denies nausea vomiting diarrhea constipation. No association with food. No shortness of breath or cough. No fevers or chills. No vaginal discharge. No dysuria increased frequency urination. Patient primary care providers Nabil Colbert in [place]. Patient isallergies to sulfa clindamycin. Patient takes no medications. Previous surgeries include tonsillectomy ovarian cyst removal finger surgery. Patient does not smoke. Rarely drinks alcohol. Uses marijuana. Patient is single. Patient works at [employer] in [place]. Family history of hypertension Medical History ALLERGIES: Allergies Allergen Reactions ??? Sulfa Antibiotics Hives ??? Clindamycin Hives MEDICATIONS: Prior to Admission medications Medication Sig Start Date End Date Taking? Authorizing Provider busPIRone 5 MG tablet Take 5 mg by mouth 3 (three) times daily as needed. Yes Doc Abstract sertraline 25 MG tablet Take 25 mg by mouth daily. Doc Abstract PAST MEDICAL HISTORY: Past Medical History: Diagnosis Date ??? Depression 2016 ??? Misophonia 2014 PAST SURGICAL HISTORY: Past Surgical History: Procedure Laterality Date ??? ABDOMINAL SURGERY ??? EYE SURGERY ??? FRACTURE SURGERY ??? TONSILLECTOMY FAMILY HISTORY: Family History Problem Relation Name Age of Onset ??? Thyroid Disease Mother ??? Hypertension Father SOCIAL HISTORY: Social History Tobacco Use ??? Smoking status: Never Smoker ??? Smokeless tobacco: Never Used Substance Use Topics ??? Alcohol use: Not Currently ??? Drug use: Yes Frequency: 3.0 times per week Types: Methamphetamines Review of Systems Review of Systems Constitutional: Negative for chills and fever. HENT: Negative for congestion, rhinorrhea and sore throat. Eyes: Negative for photophobia. Respiratory: Negative for cough, shortness of breath and wheezing. Cardiovascular: Positive for chest pain. Negative for palpitations and leg swelling. Gastrointestinal: Positive for abdominal pain. Negative for constipation, diarrhea, nausea and vomiting. Endocrine: Negative for polydipsia and polyuria. Genitourinary: Negative for dysuria and frequency. Musculoskeletal: Negative for back pain, neck pain and neck stiffness. Skin: Negative for pallor and rash. Allergic/Immunologic: Negative for immunocompromised state. Neurological: Negative for syncope, light-headedness, numbness and headaches. Hematological: Does not bruise/bleed easily. Psychiatric/Behavioral: Negative for suicidal ideas. Anxious/history of anxiety Physical Exam Filed Vitals: 05/06/21 0712 05/06/21 0840 BP: 107/67 100/69 Pulse: 69 Resp: 16 Temp: 97.4 ??F (36.3 ??C) TempSrc: Temporal SpO2: 98% 98% Weight: 73 kg (161 lb) Height: 5' 3 (1.6 m) Physical Exam Constitutional: She is oriented to person, place, and time. She appears well- developed and well-nourished. No distress. HENT: Head: Normocephalic and atraumatic. Right Ear: External ear normal. Left Ear: External ear normal. Eyes: Pupils are equal, round, and reactive to light. Conjunctivae and EOM are normal. No scleral icterus. Neck: No JVD present. Cardiovascular: Normal rate, regular rhythm, normal heart sounds and intact distal pulses. Exam reveals no gallop and no friction rub. No murmur heard. Pulmonary/Chest: Effort normal and breath sounds normal. No stridor. No respiratory distress. She has no wheezes. She has no rales. She exhibits no tenderness. Abdominal: Soft. Bowel sounds are normal. She exhibits no distension and no mass. There is abdominal tenderness. There is no rebound and no guarding. Tender right upper quadrant Musculoskeletal: General: No deformity or edema. Normal range of motion. Cervical back: Normal range of motion and neck supple. Neurological: She is alert and oriented to person, place, and time. Skin: Skin is warm and dry. No rash noted. Psychiatric: She has a normal mood and affect. Her behavior is normal. Judgment and thought contentnormal. Nursing note and vitals reviewed. Diagnostic Studies / Procedures ELECTROCARDIOGRAMS: Results for orders placed or performed during the hospital encounter of 05/06/21 [address] [facility] Test Date: 2021-05-06 Pat Name: ANGELA KIRKLAND Department: Room: EXAM 202 Gender: Female Behaviour Support Teacher: : 2000 Requested By: TORSTEN CRAMER Order Number: [id number] Reading MD: Cyril Leger Measurements Intervals [place] Rate: 72 P: 41 VA: 125 QRS: 46 QRSD: 83 T: 11 QT: 386 QTc: 424 Interpretive Statements SINUS RHYTHM NONSPECIFIC T-WAVE ABNORMALITY No previous ECG available for comparison LABORATORY STUDIES: Results for orders placed or performed during the hospital encounter of 05/06/21 CBC W/DIFF AUTOMATED Result Value Ref Range WBC 6.2 4.4 - 11.0 x10'3/uL RBC 4.57 4.50 - 5.10 x10'6/uL HGB 12.6 12.3 - 15.3 G/DL HCT 39.7 35.9 - 44.6 % MCV 86.9 80.0 - 96.0 FL MCH 27.6 25.3 - 30.9 PG MCHC 31.7 31.0 - 34.1 G/DL RDW 13.4 12.4 - 15.1 % PLT 215 151 - 353 x10'3/uL MPV 12.8 (H) 9.6 - 12.0 FL RBC MORPHOLOGY NORMAL PLT MORPH. NORMAL WBC MORPHOLOGY NORMAL LYMPHOCYTES 24.0 15.8 - 45.0 % NEUTROPHILS 65.9 42.1 - 71.9 % MONOCYTES 9.0 5.7 - 12.5 % EOSINOPHILS 0.5 0.0 - 5.6 % BASOPHILS 0.3 0.0 - 1.3 % ABS. NEUTROPHILS TOTAL 4.11 1.40 - 6.00 x10'3/uL IMMATURE GRANS 0.3 0.0 - 0.5 % ABS. LYMPHOCYTES 1.50 0.80 - 4.70 x10'3/uL COMPREHENSIVE METABOLIC PANEL Result Value Ref Range GLUCOSE 95 70 - 99 MG/DL BUN 18 7 - 18 MG/DL CREATININE S/P/B 0.81 0.55 - 1.02 MG/DL SODIUM 141 136 - 145 MMOL/L POTASSIUM 3.5 3.5 - 5.1 MMOL/L CHLORIDE S/P/B 105 100 - 108 MMOL/L CO2 26.2 21 - 32 MMOL/L CALCIUM 9.2 8.5 - 10.1 MG/DL BILIRUBIN TOTAL S/P/B 0.2 0.2 - 1.2 MG/DL TOTAL PROTEIN S/P/B 7.2 6.4 - 8.2 G/DL ALBUMIN S/P/B 3.8 3.4 - 5.0 G/DL AST 13 (L) 15 - 37 U/L ALT 21 14 - 55 U/L ALKALINE PHOSPHATASE S/P/B 69 50 - 136 U/L ANION GAP 9.8 5 - 15 MMOL/L BUN CREATININE RATIO 22.2 6 - 26 A/G RATIO 1.1 1.0 - 2.0 RATIO eGFR Non-Afr. Amer. >90 >90 ML/MIN/1.73 M2 eGFR Afr. Amer. >90 >90 ML/MIN/1.73 M2 TROPONIN, QUANT Result Value Ref Range TROPONIN I <0.017 0.000 - 0.056 ng/mL. LIPASE Result Value Ref Range LIPASE 171 73 - 393 UNITS/L URINALYSIS, AUTO, COMPLETE Result Value Ref Range COLOR (U) YELLOW TRANSPARENCY CLEAR Specific [place] (U) 1.020 1.000 - 1.030 U PH 6.0 5.0 - 9.0 LEUKOCYTE ESTERASE NEGATIVE NEGATIVE NITRITES NEGATIVE NEGATIVE PROTEIN (U) NEGATIVE NEGATIVE URINE GLUCOSE NEGATIVE NEGATIVE U KETONES NEGATIVE NEGATIVE BILIRUBIN (U) NEGATIVE NEGATIVE BLOOD NEGATIVE NEGATIVE WBC/HPF NONE SEEN 0 - 5 /HPF RBC/HPF NONE SEEN 0 - 5 /HPF EPI/HPF MODERATE /HPF CULTURE & SENSITIVITY INDICATED? CULTURE IS NOT INDICATED Qualitative HCG Result Value Ref Range PREG SCREEN-SERUM NEGATIVE NEGATIVE IMAGING STUDIES XR CHEST PORTABLE Final Result by User, [id number] (05/06 920) Portable HISTORY: cp/abd pain COMPARISON: None FINDINGS: The lungs are adequately inflated without consolidation, effusion or pneumothorax. The cardiac chambers are normal appearing. No osseous lesions are identified. IMPRESSION: No acute cardiopulmonary process is identified. Referred By: OTRSTEN CRAMER Interpreted By: Tae Diop, 05/06/2021 9:16 AM EKG Reading Date/Time: 05/06/2021 7:50 AM Performed by: Torsten Cramer MD Authorized by: Torsten Cramer MD Interpreted by ED physician Previous ECG: no previous ECG available Rhythm: sinus rhythm Rate: normal BPM: 72 Comments: Normal sinus rhythm. Heart rate 72. Normal axis normal normal QRS nonspecific ST-T wave changes. No old EKG to compare. monitoring and evaluation advisor. 745: Normal sinus rhythm. Heart rate 72. No ectopy ED Course / Medical Decision Making MDM Number of Diagnoses or Management Options Diagnosis management comments: Differential diagnosis: Chest pain Anxiety Cholelithiasis Pneumonia Amount and/or Complexity of Data Reviewed Clinical lab tests: ordered and reviewed Tests in the radiology section of CPT??: reviewed and ordered Risk of Complications, Morbidity, and/or Mortality Presenting problems: moderate Diagnostic procedures: moderate Management options: moderate ED Course as of May 06 09 Sat May 06, 2021 0939 Heart score 1 [CA] ED Course User Index [CA] Torsten Cramer MD Medications sodium chloride 0.9% bolus infusion SOLN 1,000 mL (1,000 mLs Intravenous New Bag 05/06/21 0837) Clinical Impression Situational anxiety (Primary) Chest pain Current Discharge Medication List Disposition: Discharge Voice recognition software used. Follow-Up: Cortney Colbert NP [address] [place] [address] In 2 days Torsten Cramer MD 05/06/2021 Torsten Cramer MD 05/06/21 0940 * Yenny Ritchie RN - 05/06/2021 7:08 AM CDTSummary: chest pain. anxiety abd pain R side lower chest pain, upper abd pain, states hx of anxiety, pain on and off all week, called dr and told to come to ER. No nausea, vomiting, or diarrhea. States hx of anxiety and depression, documented in this encounter Plan of Treatment Not on file documented as of this encounter Procedures Procedure Name Priority Date/Time Associated Diagnosis Comments XR CHEST PORTABLE STAT 05/06/2021 8:1 3 AM CDT URINALYSIS, AUTO, COMPLETE STAT 05/06/2021 8:08 AM CDT ECG 12-LEAD Routine 05/06/2021 7:45 AM CDT COMPREHENSIVE METABOLIC PANEL STAT 05/06/2021 7:40 AM CDT CHORIONIC GONADOTROPIN HCG QL STAT 05/06/2021 7:40 AM CDT CBC W/DIFF AUTOMATED STAT 05/06/2021 7:40 AM CDT TROPONIN, QUANT STAT 05/06/2021 7:40 AM CDT LIPASE STAT 05/06/2021 7:40 AM CDT ELECTROCARDIOGRAM REPORT Routine 021 7:39 AM CDT documented in this encounter Results * XR CHEST PORTABLE (05/06/2021 8:13 AM CDT) Anatomical Region Laterality Modality Chest Radiographic Ann Marie ging 05/06/2021 9:16 AM CDT Impressions 05/06/2021 9:17 AM CDT IMPRESSION: No acute cardiopulmonary process is identified. Referred By: TORSTEN CRAMER Interpreted By: Tae Diop, 05/06/2021 9:16 AM Narrative 05/06/2021 9:17 AM CDT Portable HISTORY: cp/abd pain ?? COMPARISON: None FINDINGS: The lungs are adequately inflated without consolidation, effusion or pneumothorax. The cardiac chambers are normal appearing. No osseous lesions are identified. Procedure Note Tae Diop, DO - 05/06/2021 Portable HISTORY: cp/abd pain COMPARISON: None FINDINGS: The lungs are adequately inflated without consolidation,effusion or pneumothorax. The cardiac chambers are normal appearing. No osseous lesions are identified. IMPRESSION: No acute cardiopulmonary process is identified. Referred By: TORSTEN CRAMER Interpreted By: Tae Diop, 05/06/2021 9:16 AM Torsten Cramer MD GENERAL IMAGING Final Result * URINALYSIS, AUTO, COMPLETE (05/06/2021 8:08 AM CDT) COLOR (U) YELLOW 05/06/2021 8:18 AM CDT [facility] TRANSPARENCY CLEAR 05/06/2021 8:18 AM CDT [facility] SPECIFIC GRAVITY (U) 1.020 1.000 - 1.030 05/06/2021 8:18 AM CDT [facility] U PH 6.0 5.0 - 9.0 05/06/2021 8:18 AM CDT [facility] LEUKOCYTES (U) NEGATIVE NEGATIVE 05/06/2021 8:18 AM CDT [facility] NITRITES NEGATIVE NEGATIVE 05/06/2021 8:18 AM T [facility] PROTEIN (U) NEGATIVE NEGATIVE 05/06/2021 8:18 AM CDT [facility] URINE GLUCOSE NEGATIVE NEGATIVE 05/06/2021 8:18 AM T [facility] KETONES MG/DL (U) NEGATIVE NEGATIVE 05/06/2021 8:18 AM CDT [facility] BILIRUBIN (U) NEGATIVE NEGATIVE 05/06/2021 8:18 AM CDT [facility] BLOOD (U) NEGATIVE NEGATIVE 05/06/2021 8:18 AM CDT [facility] WBC/HPF NONE SEEN 0 - 5 /HPF 05/06/2021 8:18 AM CDT [facility] RBC/HPF NONE SEEN 0 - 5 /HPF 05/06/2021 8:18 AM CDT [facility] EPI/HPF MODERATE /HPF 05/06/2021 8:18 AM CDT [facility] CULTURE & SENSITIVITY INDICATED? CULTURE IS NOT INDICATED 05/06/2021 8:18 AM CDT [facility] URINE SPECIMEN OBTAINED BY CLEAN CATCH PROCEDURE / Unknown 05/06/2021 8:08 AM CDT us Torsten Cramer MD URINE ORDERABLES Final Result Performing Organization Address City/State/[facility] Co de Phone Number [facility] [address] [place] [address], * ECG 12 lead (05/06/2021 7:45 AM CDT) 05/06/2021 7:[address] [facility] - 05/06/2021 9:16 AM CDT [facility] ? Test Date: ?2021-05-06 Pat Name: ? ANGELAMARTIR KIRKLAND ? Department: ? Room: ? EXAM 202 Gender: ? Female ? Behaviour Support Teacher: ?? : ?2000 ? Requested By: TORSTEN CRAMER Order Number: [id number] ? Reading MD: ?? Cyril Leger ? Measurements Intervals ?[place] ? Rate: ? 72 ? P: ?41 VA: ? 125 ?QRS: ?46 QRSD: ? 83 ? T: ?11 QT: ? 386 ? QTc: ?424 ? Interpretive Statements SINUS RHYTHM NONSPECIFIC T-WAVE ABNORMALITY No previous ECG available for comparison Procedure Note Cyril Leger MD - 05/06/2021 [facility] Test Date: 2021-05-06 Pat Name: ANGELA KIRKLAND Department: Room: EXAM 202 Gender: Female Behaviour Support Teacher: : 2000 Requested By: TORSTEN CRAMER Order Number: [id number] [place] MD: Cyril Leger Measurements Intervals [place] Rate: 72 P: 41 VA: 125 QRS: 46 QRSD: 83 T: 11 QT: 386 QTc: 424 Interpretive Statements SINUS RHYTHM NONSPECIFIC T-WAVE ABNORMALITY No previous ECG available for comparison us Torsten Cramer MD ECG ORDERABLES Final Result Performing Organization Address City/[facility]/ZIP Co de Phone Number [facility] * Qualitative HCG (05/06/2021 7:40 AM CDT) [facility] PREG SCREEN-SERUM NEGATIVE NEGATIVE 05/06/2021 7:52 AM CDT [facility] 05/06/2021 7:40 AM CDT us Torsten Cramer MD LABORATORY Final Result Performing Organization Address City/[facility]/ZIP Co de Phone Number [facility] [id number] [place] [address], [place] [phone] * LIPASE (05/06/2021 7:40 AM CDT) [facility] LIPASE 171 73 - 393 UNITS/L 05/06/2021 7:59 AM CDT [facility] 05/06/2021 7:40 AM CDT us Torsten Cramer MD LABORATORY Final Result Performing Organization Address City/[facility]/ZIP Co de Phone Number [facility] [address] [place] [address], [place] [phone] * TROPONIN, QUANT (05/06/2021 7:40 AM CDT) [facility] TROPONIN I <0.017 0.000 - 0.056 ng/mL. 05/06/2021 8:12 AM CDT [facility] Comment: NORMAL: LESS THAN OR EQUAL TO 0.056 NG/ML INDETERMINATE ZONE: 0.057 TO 0.599 NG/ML CONDITIONS RESULTING IN MYOCARDIAL CELL DAMAGE CAN POTENTIALLY INCREASE LEVELS ABOVE THE EXPECTED RANGE. HIGH DOSES OF BIOTIN MAY INTERFERE WITH THIS TEST RESULT. CORRELATION TO CLINICAL HISTORY AND PRESENTATION RECOMMENDED. 05/06/2021 7:40 AM CDT Torsten Cramer MD LABORATORY Final Result [facility] [address] [place] [address], * (ABNORMAL) COMPREHENSIVE METABOLIC PANEL (05/06/2021 7:40 AM CDT) [facility] GLUCOSE 95 70 - 99 MG/DL 05/06/2021 7:59 AM CDT [facility] BUN 18 7 - 18 MG/DL 05/06/2021 7:59 AM CDT [facility] CREATININE S/P/B 0.81 0.55 - 1.02 MG/DL 05/06/2021 7:59 AM CDT [facility] SODIUM S/P/B 141 136 - 145 MMOL/L 05/06/2021 7:59 AM CDT [facility] POTASSIUM S/P/B 3.5 3.5 - 5.1 MMOL/L 05/06/2021 7:59 AM CDT [facility] CHLORIDE S/P/B 105 100 - 108 MMOL/L 05/06/2021 7:59 AM CDT [facility] CO2 26.2 21 - 32 MMOL/L 05/06/2021 7:59 AM CDT [facility] CALCIUM S/P/B 9.2 8.5 - 10.1 MG/DL 05/06/2021 7:59 AM [facility] BILIRUBIN TOTAL S/P/B 0.2 0.2 - 1.2 MG/DL 05/06/2021 7:59 AM [facility] TOTAL PROTEIN S/P/B 7.2 6.4 - 8.2 G/DL 05/06/2021 7:59 AM [facility] ALBUMIN S/P/B 3.8 3.4 - 5.0 G/DL 05/06/2021 7:59 AM [facility] AST 13(L) 15 - 37 U/L 05/06/2021 7:59 AM [facility] ALT 21 14 - 55 U/L 05/06/2021 7:59 AM [facility] ALKALINE PHOSPHATASE S/P/B 69 50 - 136 U/L 05/06/2021 7:59 AM [facility] ANION GAP 9.8 5 - 15 MMOL/L 05/06/2021 7:59 AM [facility] BUN CREATININE RATIO 22.2 6 - 05/06/2021 7:59 AM [facility] A/G RATIO 1.1 1.0 - 2.0 RATIO 05/06/2021 7:59 AM [facility] EGFR NON-AFR. AMER. >90 >90 ML/MIN/1.7 3 M2 05/06/2021 7:59 AM [facility] EGFR AFR. AMER. >90 >90 ML/MIN/1.7 3 M2 05/06/2021 7:59 AM [facility] Comment: NOTE: eGFR is not calculated for patients <18 years of age. This is an estimated GFR (CKD EPI) and should not be used for calculating drug doses. 05/06/2021 7:40 AM CDT Torsten Cramer MD LABORATORY Final Result [facility] [address] [place] [address], * (ABNORMAL) CBC W/DIFF AUTOMATED (05/06/2021 7:40 AM CDT) WBC 6.2 4.4 - 11.0 x10'3/uL 05/06/2021 7:47 AM CDT [facility] RBC 4.57 4.50 - 5.10 x10'6/uL 05/06/2021 7:47 AM CDT [facility] HGB 12.6 12.3 - 15.3 G/DL 05/06/2021 7:47 AM CDT [facility] HCT 39.7 35.9 - 44.6 % 05/06/2021 7:47 AM CDT [facility] MCV 86.9 80.0 - 96.0 FL 05/06/2021 7:47 AM CDT [facility] MCH 27.6 25.3 - 30.9 PG 05/06/2021 7:47 AM CDT [facility] MCHC 31.7 31.0 - 34.1 G/DL 05/06/2021 7:47 AM CDT [facility] RDW 13.4 12.4 - 15.1 % 05/06/2021 7:47 AM CDT [facility] PLT 215 151 - 353 x10'3/uL 05/06/2021 7:47 AM CDT [facility] MPV 12.8(H) 9.6 - 12.0 FL 05/06/2021 7:47 AM CDT [facility] RBC MORPHOLOGY NORMAL 05/06/2021 7:47 AM CDT [facility] PLT MORPH. NORMAL 05/06/2021 7:47 AM CDT [facility] WBC MORPHOLOGY NORMAL 05/06/2021 7:47 AM CDT [facility] LYMPHOCYTES % 24.0 15.8 - 45.0 % 05/06/2021 7:47 AM CDT [facility] NEUTROPHILS % 65.9 42.1 - 71.9 % 05/06/2021 7:47 AM CDT [facility] MONOCYTES % 9.0 5.7 - 12.5 % 05/06/2021 7:47 AM CDT [facility] EOSINOPHILS 0.5 0.0 - 5.6 % 05/06/2021 7:47 AM CDT [facility] BASOPHILS 0.3 0.0 - 1.3 % 05/06/2021 7:47 AM CDT [facility] ABS. NEUTROPHILS TOTAL 4.11 1.40 - 6.00 x10'3/uL 05/06/2021 7:47 AM CDT [facility] IMMATURE GRANS % 0.3 0.0 - 0.5 % 05/06/2021 7:47 AM CDT [facility] ABS. LYMPHOCYTES 1.50 0.80 - 4.70 x10'3/uL 05/06/2021 7:47 AM T [facility] 05/06/2021 7:40 AM CDT us Torsten Cramer MD LABORATORY Final Result [facility] [address] [place] [address], * EKG Reading (05/06/2021 7:39 AM CDT) Torsten Wetzel MD - 05/06/2021 7:39 AM CDT Torsten Cramer MD ? 05/06/2021 ??9:40 AM EKG Reading Date/Time: 05/06/2021 7:50 AM Performed by: Torsten Cramer MD Authorized by: Torsetn Cramer MD Interpreted by ED physician Previous ECG: no previous ECG available Rhythm: sinus rhythm Rate: normal BPM: 72 Comments: Normal sinus rhythm. ??Heart rate 72. ??Normal axis normal normal QRS nonspecific ST-T wave changes. ??No old EKG to compare. monitoring and evaluation advisor. ??745: Normal sinus rhythm. ??Heart rate 72. ??No ectopy us Torsten Cramer MD [facility] Final Result documented in this encounter Visit Diagnoses Diagnosis Situational anxiety- Primary Other anxiety states Chest pain Chest pain, unspecified documented in this encounter Administered Medications Inactive Administered Medications - up to 3 most recent administrations Medication Order MAR Action Action Date Dose Rate Site sodium chloride 0.9% bolus infusion SOLN 1,000 mL 1,000 mL, Intravenous, Administer over 15 Minutes, Once, 1 dose, On 05/06/21 at 0745 New Bag 05/06/2021 8:37 AM CDT 1,000 mLs documented in this encounter Active and Recently Administered Medications Times are shown in CDT. Scheduled Medication Order 05/04/2021 05/05/2021 05/06/2021 sodium chloride 0.9% bolus infusion SOLN 1,000 mL (COMPLETED) 1,000 mL, Intravenous, Administer over 15 Minutes, Once, 1 dose, On 05/06/21 at 0745 0837 (New Bag - Prov ider: Yenny Ritchie RN)0945 (Infusion Stop Time - Provider: Yenny Ritchie RN) documented in this encounter Care Teams J2Ee Developer Relationship Specialty Start Date End Date Cortney Colbert NP [address] [place] [id number] PCP - General NURSE PRACTITIONER 05/06/21 10/07/22 documented as of this encounter
--- OUTSIDE RECORDS SUMMARY | 2024-11-14 19:16 | XMS_ITS | Encounter Summary ---
Author Organization [facility] Address [address] [place] [address]. [place], [place] [id number] [place] [id number] Care Team Providers Care Pillowcase Maker Name Role Phone Fiona Parkinson MD Primary Care Pr ovider Unavailable Encounter Details Date Type Department Care Team (Latest Contact Info) Description 10/08/2022 Travel Social History Tobacco Use Types Packs/Day [...] suspected to have Coronavirus/COVID-19? No / Unsure 10/08/2022 10:45 AM DOPE FIRER documented as of this encounter Functional Status [...] Depression Total Score: 14 022 1:17 PM DOPE FIRER documented as of this encounter Care Teams Pillowcase Maker Relationship Specialty Start Date End Date Fiona Parkinson MD PCP - General FAMILY PRACTICE 10/08/22 04/14/23 documented as of this encounter
--- OUTSIDE RECORDS SUMMARY | 2024-11-14 19:16 | XMS_ITS | Encounter Summary ---
Author Organization [facility] - [facility] Address [address] [place] [address]. [place], [place] [id number] [place] [id number] Care Team Providers Care Tunnel Kiln Operator Name Role Phone Fiona Parkinson MD Primary Care Pr ovider Unavailable Reason for Visit * Reason Comments Allied Health Visit Pt is here for lab d raw Encounter Details Date Type Department Care Team (Late st Contact Info) Description 10/19/2022 2:00 PM DISTRIBUTION COORDINATOR Allied Health/Nurse Visit [facility] - [address] [place] [address] Fiona Parkinson MD Allied Health Visit (Pt is here for lab draw) Social History Tobacco Use Types Packs/Day Years [...] Coronavirus/COVID-19? No / Unsure 10/18/2022 3:01 PM DISTRIBUTION COORDINATOR documented as of this encounter Functional Status [...] documented in this encounter Progress Notes * Magdalene Argueta MA - 10/19/2022 2:00 PM CST Pt is here for lab draw RIBUTION COORDINATOR documented in this encounter Plan of Treatment Not on file documented as of this encounter Procedures Procedure Name Priority Date/Time Associated Diagnosis Comments COLLECTION VENOUS BLOOD VENIPUNCTURE Routine 10/19/2022 2:11 PM DISTRIBUTION COORDINATOR Sore throat documented in this encounter Visit Diagnoses Diagnosis Sore throat- Primary Acute pharyngitis documented in this encounter Additional Health Concerns Assessment Noted Time PHQ-9 Depression Total Score: 14 022 1:17 PM DISTRIBUTION COORDINATOR documented as of this encounter Care Teams Tunnel Kiln Operator Relationship Specialty Start Date End Date Fiona Parkinson MD PCP - General FAMILY PRACTICE 10/08/22 04/14/23 documented as of this encounter
--- OUTSIDE RECORDS SUMMARY | 2024-11-14 19:16 | XMS_ITS | Encounter Summary ---
Author Organization [facility] Address [address] [place] [address]. [place] [address] [place] [address] Care Team Providers Care Roving Changer Name Role Phone Cortney Colbert NP Primary Care Provider [phone] Reason for Visit * Auth/Cert Specialty Diagnoses / Procedures Referred By Contac t Referred To Contact Diagnoses Pelvic pain left adnexal mass Pelvic pain Procedures NA Referral ID Status Reason Start Date Expiration Date Visits Re quested Visits Authorized [id number] 1 1 Encounter Details Date Type Department Care Team (Late st Contact Info) Description 07/07/2021 12:30 PM CDT - 07/07/2021 3:16 PM CDT Surgery [facility] [place] [address] Luzma Bangura MD [address] [place] [address] LAPAROSCOPIC EXTENSIVE ADHESIOLYSIS AND EVACUATION OF CLOT Surgery Details Date/Time Status Location OR Service Patient Class Case Cl ass Case Type Trauma Case? 07/07/2021 12:30 PM Posted [facility] OR OR 9 Gynecology Inpatient D - Urgent: Needs to occur within 24 hours No Panel 1 Procedure LRB Anes Op Region Wound Class Comments LAPAROSCOPIC EXTENSIVE ADHES IOLYSIS AND EVACUATION OF CLOT N/A General Abdomen Clean Contaminated Surgeon Surgeon Role Service Panel Luzma Bangura MD Primary Gynecology 1 documented in this encounter Social History Tobacco Use Types Packs/Day Years [...] PM CDT documented as of this encounter Last Filed Vital Signs Vital Sign Reading Time Taken Comments Blood Pressure 122/72 07/07/2021 3:15 PM CDT Pulse 85 07/07/2021 3:15 PM CDT Temperature 36.4 ??C (97.6 ??F) 07/07/2021 3:09 PM CD T Respiratory Rate 24 07/07/2021 3:15 PM CDT Oxygen Saturation 98% 07/07/2021 3:15 PM CDT Inhaled Oxygen Concentration - - Weight - - Height - - Body Mass Index - - documented in this encounter Functional Status * Question Answer Date of Assessment Author Status Do you have serious difficulty walking or climbing stairs? No 07/07/2021 2:08 AM CDT Alba Palomares, RN Acti ve * Question Answer Date of Assessment Author Status Do you have difficulty dressing or bathing? No 07/07/2021 2:08 AM CDT Alba Palomares, RN Active Because of a physical, mental, or emotional condition, do you have difficulty doing errands alone such as visiting a doctor's office or shopping? No 07/07/2021 2:08 AM CDT Breann Palomares, RN Active * RETIRED Are you deaf or do [...] Assessment Author Status No 07/07/2021 2:08 AM Alba Morton, R N Active * Because of a physical, mental, or emotional condition, do you have difficulty doing errands alone such as visiting a doctor's office or shopping? Answer Date of Assessment Author Status No 07/07/2021 2:08 AM Alba Morton, R N Active documented as of this encounter Mental Status * Question Answer Entry Date Author Status Because of a physical, mental, or emotional condition, do you have serious difficulty concentrating, remembering, or making decisions? No 07/07/2021 2:08 AM Alba Morton, RN Active * Because of a physical, mental, or emotional condition, do you have serious difficulty concentrating, remembering, or making decisions? Answer Entry Date Author Status No 07/07/2021 2:08 AM Alba Morton, R N Active documented in this encounter Discharge Summaries * Luzma Bangura MD - 07/08/2021 12:19 PM CDT Discharge Form Admission Date: 07/07/2021 Discharge Date: 07/08/2021 Admission Diagnosis: Pelvic pain [R10.2], left complex ovarian cyst, diffuse abdominal pain Discharge Diagnosis: Same with extensive pelvic adhesions and a left hemorrhagic corpus luteum cystwith hemoperitoneum Hospital Course: This is a 20-year-old nulligravida patient who has a history of chlamydia as well as a left ovarian cyst that was removed by Dr. Althea chavez in 2018 and apparently had adhesive diseaseat this time she presented to [place] [facility] room on the with sudden onset of left lower quadrant abdominal pain and persistent nausea ultrasound showed a complex tubo-ovarian mass on the left side with blood flow to the ovary with the patient's persistent nausea need for pain medication we proceeded with the laparoscopic approach evacuating the hemoperitoneum and extensive adhesiolysis corpus luteum cyst had ruptured and was not actively bleeding and was not removed the patient's white blood cell count was less than 8 the whole time she was here patient's vital signs were stable she did not have a fever patient's hemoglobin was 12 point 6 in the morning after the case was 10.6 and suggesting delusional patient's pain was well controlled she was ambulating voiding without difficulty tolerating p.o. food fluids and medications she was discharged home with standard discharge instruction orders and told to follow-up with her clinician as described we did discuss ectopic is increased secondary to the significant pelvic adhesions and adhesions around the fallopian tubes and she is to contact provider immediately with a positive test for further management. The patient was given 2 g of azithromycin to take all at once and suggested her partner take 1 g at least also she will be taking doxycycline and Cipro for 2 weeks and to follow-up in the office as described Labs: Recent Labs Lab 07/06/21 1535 07/07/21 0044 07/08/21 0613 WBC 5.9 7.6 7.2 HGB 13.0 12.6 10.6* PLT 196 185 150 Recent Labs Lab 07/06/21 1535 07/08/21 0613 K 3.8 3.8 CR 0.75 0.71 GLU 98 98 AST 14* -- ALT 26 -- Other Studies: Physical Exam:VSS And afebrile General: alert, appears stated age and cooperative Skin: normal and no rash or abnormalities HEENT: neck supple with midline trachea Lungs: no respiratory distress Heart: regular rate and rhythm, Abdomen: Tenderness:mild, Incision:clean, dry and intact Pelvis: Vulva and vagina appear normal, Assessment/Plan: S/p. Will d/c to home with standard discharge instruction orders and told to follow up in the clinic as directed. documented in this encounter Discharge Instructions * Attachments The following attachments cannot be sent through Care Everywhere. * STD Prevention (Citizen Of [place]) documented in this encounter Medications at Time of Discharge azithromycin (ZITHROMAX) 1 g powder Take 2 packets (2 g total) by mouth once for 1 dose. 1 each 07/08/2021 07/08/2021 busPIRone 5 MG tablet Take 5 mg by mouth 3 (three) times daily as needed. 01/26/2022 ciprofloxacin (CIPRO) 500 MG tablet Take 1 tablet (500 mg total) by mouth 2 (two) times daily for 14 days. 28 tablet 07/08/2021 07/22/2021 doxycycline hyclate 100 MG tablet Take 1 tablet (100 mg total) by mouth 2 (two) times daily for 14 days. 28 tablet 07/08/2021 07/22/2021 Drospirenone (SLYND) 4 MG TabIndications:S/ P laparoscopy Take 1 tablet by mouth daily. Start on 4th day of menses 28 tablet 11 07/08/2021 01/26/2022 ibuprofen 800 MG tabletIndications :S/P laparoscopy Take 1 tablet (800 mg total) by mouth every 8 (eight) hours as needed for Pain. May take every 6 hours for first 2 days 30 tablet 1 07/08/2021 09/06/2021 oxyCODONE-acetami nophen (PERCOCET) 5-325 MG tabletIndications :Acute Pain < 7 Day Supply Take 1 tablet by mouth every 6 (six) hours as needed. Indications: Acute Pain < 7 Day Supply 20 tablet 07/08/2021 01/26/2022 sertraline 25 MG tablet Take 25 mg by mouth daily. 01/26/2022 documented as of this encounter H&P Notes * Luzma Bangura MD - 07/07/2021 12:02 PM CDT Gynecology Consult Note CC: llq abd pain HPI: Patient is a [id number] female presenting with sudden onset of left lower quadrant and mid abdominal pain since yesterday at 2 PM which is continued to get worse she states that her bowels are regular she has no urinary tract infection type symptoms she is never had dyspareunia she has had a history of chlamydia in 2018 in 2018 she also had an ovarian cyst that was removed laparoscopically sheis not on any control pills and her cycles are every 28 to 35 days her last cycle was approximately 28 days ago. 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 LMP: June 11, 2021 Deliveries: NA Sexual activity: Yes Contraception: nothing STD: Chlamydia Abnormal pap: no. Past Medical History: Diagnosis Date ??? Depression 2017 ??? Misophonia 2014 Past Surgical History: Procedure Laterality Date ??? Laparoscopic ovarian cystectomy [place] [address] Oh ??? EYE SURGERY ??? FRACTURE SURGERY ??? TONSILLECTOMY Social History Tobacco Use ??? Smoking status: Never Smoker ??? Smokeless tobacco: Never Used Substance Use Topics ??? Alcohol use: Not Currently Family History Problem Relation Name Age of Onset ??? Thyroid Disease Mother ??? Hypertension Father Medications Prior to Admission Medication Sig Dispense Refill ??? busPIRone 5 MG tablet Take 5 mg by mouth 3 (three) times daily as needed. ??? sertraline 25 MG tablet Take 25 mg by mouth daily. Allergies Allergen Reactions ??? Sulfa Antibiotics Hives ??? Clindamycin Hives Review of systems: ROS no unusual shortness of breath cough or chest pain Physical Exam: General: Patient appears uncomfortable HEENT: Normal hair distribution neck supple without masses Chest: No respiratory distress Heart: Regular rate and rhythm Abdomen: Nondistended patient is tender in the left lower quadrant and right lower quadrant of her abdomen and no masses appreciated Pelvic exam: Normal external genitalia and review of the ultrasound shows normal uterus normal right ovary a possible left hydrosalpinx with blood flow to the ovary appreciated this is uninvolved outside ultrasound .vs Filed Vitals: 07/07/21 0120 07/07/21 0725 BP: 108/63 97/59 Pulse: 71 66 Resp: 14 Temp: 98.1 ??F (36.7 ??C) 98.1 ??F (36.7 ??C) TempSrc: Oral SpO2: 100% 100% Labs: CBC within normal limits quantitative beta-hCG is negative Imaging: Pelvic ultrasound reviewed Assessment: Enlarged tube and ovary on the left side with evidence of hydrosalpinx secondary to increased pain suspect torsion secondary to the patient's persistent nausea and need for narcotics less likely a tubo-ovarian abscess as she is not had a fever and her white blood cell count is normal Plan: We will plan on proceeding with a laparoscopic removal of cyst and or possible ovary and fallopian tube we discussed with the patient risk benefits and alternatives and secondary to the increasing pain and nausea we will proceed with surgery LUZMA BANGURA MD documented in this encounter Nursing Notes * Filomena Fabian RN - 07/07/2021 1:19 PM CDT Updated patient's mother, Jennifer on procedure start via phone at 1319. Updated Jennifer on procedure via phone at 1420. * Catalina Valentino RN - 07/07/2021 12:00 PM CDT CHG wipes used on arrival to OPS, etyhl alcohol swabs x 2 placed in bilateral nares per RN. Pt tolerated well. documented in this encounter OR Notes * Op Note - Luzma Bangura MD - 07/08/2021 12:08 PM CDT OPERATIVE NOTE: Preoperative Diagnosis: 1. Left complex ovarian cyst 2. Diffuse abdominal pain Postoperative Diagnosis: 1. Same as Preop 2. Left hemorrhagic corpus luteum cyst with hemoperitoneum 3. 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 the appendix appeared normal patient had significant adhesive disease of the sigmoid colon to the back of the uterus with long strands of adhesions that were up to 5 cm in length theleft and right ovaries and tubes were adhered to the respective pelvic sidewalls there was dense adhesion overlying the whole uterus the adhesive disease was completely removed with the fallopian tubes freed up the fimbria were mildly blunted there was still some adhesive disease around the fallopian tubes the left fallopian tube had mild dilation of the distal one third of the is the portion theleft ovary had a ruptured hemorrhagic corpus luteum cyst with approximately 800 cc of blood in the posterior cul-de-sac the ovary had no active bleeding and both ovaries appeared to be within normal limits. The adhesions were all completely taken down with good hemostasis and no raw areas and all adhesions were taken down sharply with the monopolar scissors or the 5 mm LigaSure Estimated Blood Loss: 150 ml. Intravenous fluid replacement: 1000 ml. Urine Output: 200 ml of clear urine. Condition: stable on move to Post anesthesia care unit. Procedure: Patient was taken back to the operating room where general anesthesia was administered the patient was prepped and draped normal sterile fashion placed in dorsolithotomy position with legs placed in Walter stirrups a speculum was used to bring the cervix into view and a pelvic exam prior to the examshowed the uterus to be midplane the anterior lip of the cervix was grasped with single- tooth tenaculum and using a small Tamazight dilator this was passed through the cervix and Steri-Stripped to the single-tooth tenaculum for uterine manipulation. The gloves were changed at this point attention diverted towards the abdominal aspect of the case and 5 cc of quarter percent Marcaine with 1- 200,000 epinephrine was injected into the umbilicus a vertical incision was made and the 5 mm disposable port was placed directly into the peritoneal cavity under direct visualization without difficulty and CO2gas was then used to insufflate the patient to a patient pressure of 15 mmHg 2 lateral 5 mm ports we re placed intermediate between the anterior superior iliac spines and umbilicus just lateral to the epigastric vessels after the skin was injected with quarter percent Marcaine solution incision was made with 11 blade the disposable ports were placed under direct visualization the suction rubber press tender was then used to suction the clot out of the pelvis findings were described as above and the adhesive disease was extensive and took an hour and 15 minutes to free everything up great care was taken not to get too close to the bowel with the monopolar scissors the 5 mm LigaSure was used to help cauterized and dry and transect the adhesions and the fallopian tubes were completely freed up as well as the ovaries from the pelvic sidewalls and good hemostasis at the level of less left corpus luteum cystwas appreciated the CO2 gas is expressed and peritoneal cavity again good hemostasis was noted and the ports were then removed after the gas is expressed in the peritoneal cavity is much as possible the incisions were closed with 3-0 Monocryl in a buried fashion and Dermabond the tenaculum was removed good hemostasis appreciated sponge lap needle counts were correct x2 and the patient was transferred to the recovery room in stable condition documented in this encounter Plan of Treatment Not on file documented as of this encounter Procedures Procedure Name Priority Date/Time Associated Diagnosis Comments BASIC METABOLIC PANEL Routine 07/08/2021 6:13 AM CDT CBC, AUTO, NO DIFF Routine 07/08/2021 6: 13 AM CDT LAPAROSCOPY DIAGNOSTIC 07/07/2021 12:34 PM CDT LEFT OVARIAN CYST PROCEDURE GENERIC 07/07/2021 11: 23 AM CDT TYPE & SCREEN Routine 07/07/2021 12:44 AM CDT CBC W/DIFF AUTOMATED Routine 07/07/2021 12:44 AM CDT documented in this encounter Results * (ABNORMAL) CBC, AUTO, NO DIFF (07/08/2021 6:13 AM CDT) Pathologist [facility] WBC 7.2 4.5 - 13.0 x10'3/uL 07/08/2021 8:43 AM CDT [facility] RBC 3.79(L) 4.20 - 5.40 x10'6/uL 07/08/2021 8:43 AM CDT [facility] HGB 10.6(L) 12.0 - 16.0 G/DL 07/08/2021 8:43 AM CDT [facility] HCT 33.3(L) 38.0 - 48.0 % 07/08/2021 8:43 AM CDT [facility] MCV 87.9 81.0 - 99.0 FL 07/08/2021 8:43 AM CDT [facility] MCH 28.0 27.0 - 31.0 PG 07/08/2021 8:43 AM CDT [facility] MCHC 31.8(L) 32.0 - 36.0 G/DL 07/08/2021 8:43 AM CDT [facility] RDW 13.5 11.5 - 14.5 % 07/08/2021 8:43 AM CDT [facility] PLT 150 130 - 400 x10'3/uL 07/08/2021 8:43 AM CDT [facility] MPV 13.3(H) 9.3 - 12.2 FL 07/08/2021 8:43 AM CDT [facility] 07/08/2021 6:13 AM CDT Luzma Bangura MD LABORATORY Final Result [facility] [address] [place] [address], * (ABNORMAL) BASIC METABOLIC PANEL (07/08/2021 6:13 AM CDT) GLUCOSE 98 70 - 99 MG/DL 07/08/2021 6:43 AM CDT [facility] BUN 11 7 - 18 MG/DL 07/08/2021 6:43 AM CDT [facility] CREATININE S/P/B 0.71 0.55 - 1.02 MG/DL 07/08/2021 6:43 AM CDT [facility] SODIUM S/P/B 139 136 - 145 MMOL/L 07/08/2021 6:43 AM CDT [facility] POTASSIUM S/P/B 3.8 3.5 - 5.1 MMOL/L 07/08/2021 6:43 AM CDT [facility] CHLORIDE S/P/B 110(H) 100 - 108 MMOL/L 07/08/2021 6:43 AM CDT [facility] CO2 27.4 21 - 32 MMOL/L 07/08/2021 6:43 AM CDT [facility] CALCIUM S/P/B 8.3(L) 8.5 - 10.1 MG/DL 07/08/2021 6:43 AM CDT [facility] ANION GAP 1.6(L) 5 - 15 MMOL/L 07/08/2021 6:43 AM CDT [facility] BUN CREATININE RATIO 15.4 6 - 26 07/08/2021 6:43 AM CDT [facility] EGFR NON-AFR. AMER. >90 >90 ML/MIN/1.7 3 M2 07/08/2021 6:43 AM CDT [facility] EGFR AFR. AMER. >90 >90 ML/MIN/1.7 3 M2 07/08/2021 6:43 AM CDT [facility] Comment: NOTE: eGFR is not calculated for patients <18 years of age. This is an estimated GFR (CKD EPI) and should not be used for calculating drug doses. 07/08/2021 6:13 AM CDT us Luzma Bangura MD LABORATORY Final Result [facility] [address] [place] [address], [place] [phone] * PROCEDURE GENERIC (07/07/2021 11:23 AM CDT) Narrative 07/07/2021 11:23 AM CDT Ordered by an unspecified provider. us Documents Scanned [facility] Final Result * TYPE & SCREEN (07/07/2021 12:44 AM CDT) ABO/RH A POSITIVE 07/07/2021 6:09 AM CDT [facility] ANTIBODY SCREEN NEGATIVE 07/07/2021 6:09 AM CDT [facility] SAMPLE EXPIRATION 07/10/2021,2 359 07/07/2021 6:09 AM CDT [facility] 07/07/2021 12:4 4 AM CDT us Rey Park MD BLOOD BANK TEST ORDERABLES Fi nal Result [facility] [address] [place] [address], * (ABNORMAL) CBC W/DIFF AUTOMATED (07/07/2021 12:44 AM CDT) WBC 7.6 4.5 - 13.0 x10'3/uL 07/07/2021 2:10 AM CDT [facility] RBC 4.57 4.20 - 5.40 x10'6/uL 07/07/2021 2:10 AM CDT [facility] HGB 12.6 12.0 - 16.0 G/DL 07/07/2021 2:10 AM CDT [facility] HCT 39.2 38.0 - 48.0 % 07/07/2021 2:10 AM CDT [facility] MCV 85.8 81.0 - 99.0 FL 07/07/2021 2:10 AM CDT [facility] MCH 27.6 27.0 - 31.0 PG 07/07/2021 2:10 AM CDT [facility] MCHC 32.1 32.0 - 36.0 G/DL 07/07/2021 2:10 AM CDT [facility] RDW 13.5 11.5 - 14.5 % 07/07/2021 2:10 AM CDT [facility] PLT 185 130 - 400 x10'3/uL 07/07/2021 2:10 AM CDT [facility] MPV 12.9(H) 9.3 - 12.2 FL 07/07/2021 2:10 AM CDT [facility] DIFFERENTIAL TYPE AUTOMATED DIFFERENTIAL 07/07/2021 2:10 AM CDT [facility] NEUTROPHILS % 64.2 % 07/07/2021 2:10 AM CDT [facility] LYMPHOCYTES % 28.4 % 07/07/2021 2:10 AM CDT [facility] MONOCYTES % 6.3 % 07/07/2021 2:10 AM CDT [facility] EOSINOPHILS 0.5 % 07/07/2021 2:10 AM CDT [facility] BASOPHILS 0.5 % 07/07/2021 2:10 AM CDT [facility] IMMATURE GRANS % 0.1 % 07/07/20 2:10 AM CDT [facility] ABS. NEUTROPHILS TOTAL 4.88 1.80 - 8.00 x10'3/uL 07/07/2021 2:10 AM CDT [facility] ABS. LYMPHOCYTES 2.16 1.20 - 5.20 x10'3/uL 07/07/2021 2:10 AM CDT [facility] ABS. MONOCYTES 0.48 0.24 - 0.86 x10'3/uL 07/07/2021 2:10 AM CDT [facility] ABS. EOSINOPHILS 0.04 0.04 - 0.36 x10'3/uL 07/07/2021 2:10 AM CDT [facility] ABS. BASOPHILS 0.04 0.01 - 0.08 x10'3/uL 07/07/2021 2:10 AM CDT [facility] ABS. IMMATURE GRANULOCYTES 0.01 0.00 - 0.49 x10'3/uL 07/07/2021 2:10 AM CDT [facility] 07/07/2021 12:4 4 AM CDT us Rey Park MD LABORATORY Final Result [facility] [address] [place] [address], [place] [phone] documented in this encounter Visit Diagnoses Not on filedocumented in this encounter Admitting Diagnoses Diagnosis Pelvic pain documented in this encounter Administered Medications Inactive Administered Medications - up to 3 most recent administrations Medication Order MAR Action Action Date Dose Rate Site BUpivacaine-EPINEPHrine 0.25% -[id number] injection As needed, Starting on Sat07/07/21 at 1320, Until Sat07/07/21 at 1507, Intra-Op Given 07/07/2021 1:20 PM CDT 16 mLs Operative Site ceFOXItin (MEFOXIN) 1 g in sodium chloride 0.9 % 50 mL IVPB 1 g, Intravenous, at 100 mL/hr, Every 6 hours, First dose on Sat07/07/21 at 2100, Until Discontinued New Bag 07/08/2021 9:55 AM CDT 1 g 100 mL/hr New Bag 07/08/2021 3:37 AM CDT 1 g 100 mL/hr New Bag 07/07/2021 9:21 PM CDT 1 g 100 mL/hr doxycycline hyclate (VIBRAMYCIN) 100 mg in sodium chloride 0.9 % 100 mL IVPB 100 mg, Intravenous, at 100 mL/hr, Every 12 hours, First dose on Sat07/08/21 at 0500, Until Discontinued New Bag 07/08/2021 5:01 AM CDT 100 mg 100 mL/hr HYDROcodone-acetaminophen (NORCO) 5-325 MG tablet 1 tablet 1 tablet, Oral, Every 4 hours PRN, Moderate pain (Scale 4 - 7), Starting on Sat07/07/21 at 1557, Until Sat07/08/21 at 1629, Maximum dose of acetaminophen is 4000 mg from all sources in 24 hours., Post-Op Given 07/08/2021 2:09 AM CDT 1 tablet lactated ringers infusion at 10 mL/hr, Intravenous, Continuous, Starting on Sat07/07/21 at 1115, Until Sat07/08/21 at 1629, Infuse at TKO rate,Please do not start LR if patient has diagnosis of End stage renal disease, Pre-Op New Bag 07/07/2021 2:31 PM CDT New Bag 07/07/2021 11:57 AM CDT 10 mL/hr lactated ringers infusion at 75 mL/hr, Intravenous, Continuous, Starting on Sat07/07/21 at 1615, Until 07/08/21 at 1629, Post-Op New Bag 07/08/2021 5:01 AM CDT 75 mL/hr New Bag 07/07/2021 6:18 PM CDT 75 mL/hr oxyCODONE immediate release (ROXICODONE) tablet 5 mg 5 mg, Oral, Every 4 hours PRN, Severe pain (Scale 8 - 10), Starting on Sat07/07/21 at 1557, Until 07/08/21 at 1629, Post-Op Given 07/07/2021 7:45 PM CDT 5 m g documented in this encounter Active and Recently Administered Medications Times are shown in CDT. Scheduled Medication Order 07/06/2021 07/07/2021 07/08/2021 ceFOXItin (MEFOXIN) 1 g in sodium chloride 0.9 % 50 mL IVPB 1 g, Intravenous, at 100 mL/hr, Every 6 hours, First dose on Sat07/07/21 at 2100, Until Discontinued 2120 (New Bag - Provider: Vani Love RN)2215 (Infusion Stop Time - Provider: Vani Love RN) 0337 (New Bag - Provider: Jenn Santo RN)0429 (Infusion Stop Time - Provider: Vani Love RN)0955 (New Bag - Provider: Anushka Le RN)1025 (Due: Infusion Stop Time - Provider: Anushka Le RN)1500 (Canceled Entry - Provider: Automatic Discharge Provider - Comment: Automatically canceled at discontinue of medication order) doxycycline hyclate (VIBRAMYCIN) 100 mg in sodium chloride 0.9 % 100 mL IVPB 100 mg, Intravenous, at 100 mL/hr, Every 12 hours, First dose on 07/08/21 at 0500, Until Discontinued 0501 (New Bag - Prov ider: Vani Love RN)0602 (Infusion Stop Time - Provider: Anushka Le RN) doxycycline hyclate (VIBRAMYCIN) 200 mg in sodium chloride 0.9 % 250 mL IVPB (COMPLETED) 200 mg, Intravenous, at 250 mL/hr, Once, 1 dose, On Sat07/07/21 at 1700 1817 (New Bag - Provider: Anushka Le, RN)1920 (Infusion Stop Time - Provider: Vani Love RN) famotidine (PEPCID) injection 20 mg (COMPLETED) 20 mg, Intravenous, Once, 1 dose, On Sat07/07/21 at 1115, On admission IV Push over 2 minutes, Pre-Op 1156 (Given - Provider: Catalina Valentino, LANDON) ibuprofen (MOTRIN) tablet 600 mg(Linked Group 1) 600 mg, Oral, Every 6 hours, First dose on Sat07/08/21 at 1500, Until Discontinued, Post-Op 1500 (Canceled Entry - Provider: Automatic Discharge Provider - Comment: Automatically canceled at discontinue of medication order) ketorolac (TORADOL) injection 30 mg (COMPLETED)(Linked Group 1) 30 mg, Intravenous, Every 6 hours, 3 doses, First dose on Sat07/07/21 at 2100, Last dose on Sat07/08/21 at 0900, For IV administration, give over 15 seconds., Post-Op 212 (Given - Provider: Vani Love, LANDON) 0336 (Given - Provider: Jenn Santo RN)0955 (Given - Provider: Anushka Le, LANDON) ondansetron (ZOFRAN) injection 4 mg (COMPLETED) 4 mg, Intravenous, Once, 1 dose, On Sat07/07/21 at 1115, On admission, Pre-Op 1156 (Given - Provider: Catalina Valentino, LANDON) scopolamine (TRANSDERM-SCOP) 1 MG/3DAYS patch 1 patch 1 patch, Transdermal, Administer over 72 Hours, Once, 1 dose, On Sat07/07/21 at 1215 1207 (Patch Applied - Provider: Catalina Valentino, LANDON) 1400 (Due: Patch Removed - Provider: Automatic Discharge Provider - Comment: Time automatically adjusted from order being discontinued) Continuous Medication Order 07/06/2021 07/07/2021 07/08/2021 dextrose 5 % lactated ringers infusion (CANCELED) at 125 mL/hr, Intravenous, Continuous, Starting on Sat07/07/21 at 0115, Until Sat07/07/21 at 1557 0149 (New Bag - Provider: Alba Palomares, RN)0926 (New Bag - Provider: Anushka Le, RN)1239 (JAN Hold - Provider: User Epic - Reason: Unreviewed Transfer Orders)1508 (JAN Unhold - Provider: User Epic) lactated ringers infusion at 10 mL/hr, Intravenous, Continuous, Starting on Sat07/07/21 at 1115, Until 07/08/21 at 1629, Infuse at TKO rate,Please do not start LR if patient has diagnosis of End stage renal disease, Pre-Op 0000 (Anesthesia Volume Adjustment - Provider: Nabor De CRNA)1157 (New Bag - Provider: Catalina Valentino, LANDON)1233 (Canceled Entry - Provider: Nabor De CRNA - Comment: Switch to gravity)1234 (Canceled Entry - Provider: Nabor De CRNA)1431 (New Bag - Provider: Nabor De CRNA) lactated ringers infusion at 75 mL/hr, Intravenous, Continuous, Starting on Sat07/07/21 at 1615, Until 07/08/21 at 1629, Post-Op 1818 (New Bag - Provider: Anushka Le, LANDON) 0501 (New Bag - Provider: Vani Love RN) PRN Medication Order 07/06/2021 07/07/2021 07/08/2021 bisacodyl (DULCOLAX) suppository 10 mg 10 mg, Rectal, Daily as needed, Constipation, Starting on Sat07/07/21 at 1557, Until 07/08/21 at 1629, Post-Op BUpivacaine-EPINEPHrine 0.25% -[id number] injection (CANCELED) As needed, Starting on Sat07/07/21 at 1320, Until Sat07/07/21 at 1507, Intra-Op 1320 (Given - Provider: Luzma Bangura MD) busPIRone (BUSPAR) tablet 5 mg 5 mg, Oral, 3 times daily PRN, anxiety, Starting on Sat07/07/21 at 1557, Until 07/08/21 at 1629 diphenhydrAMINE (BENADRYL) injection 12.5 mg (COMPLETED) 12.5 mg, Intravenous, Once as needed, Nausea, Vomiting, 1 dose, Starting on Sat07/07/21 at 1450, Until Sat07/07/21 at 1523, For IV administration, give no faster than 25 mg/min. If more than one antiemetic is ordered, use in this order: ondansetron, diphenhydramine, metoclopramide, haloperidol, promethazine. If nausea / vomiting still not controlled, move to next ordered medication., PACU 1523 (Given - Provider: Heather Jimenez RN - Comment: itching) HYDROcodone-acetaminophen (NORCO) 5-325 MG tablet 1 tablet 1 tablet, Oral, Every 4 hours PRN, Moderate pain (Scale 4 - 7), Starting on Sat07/07/21 at 1557, Until 07/08/21 at 1629, Maximum dose of acetaminophen is 4000 mg from all sources in 24 hours., Post-Op 0209 (Given - Provid er: Lisseth Boone RN) HYDROmorphone (DILAUDID) injection 1 mg 1 mg, Intravenous, Every 4 hours PRN, Severe pain (Scale 8 - 10), Starting on Sat07/07/21 at 1557, Until 07/08/21 at 1629, If unable to tolerate PO. Administer slowly over at least 2-3 minutes. magnesium hydroxide (MILK OF MAGNESIA) 400 MG/5ML suspension 30 mL 30 mL, Oral, 2 times daily PRN, Constipation, Starting on Sat07/07/21 at 1557, Until 07/08/21 at 1629, Shake Well, Post-Op gxlwkwyty-yqyouaad-quqkafip one (MYLANTA MAXIMUM STRENGTH) [id number] mg/30mL suspension 10 mL, Oral, Every 4 hours PRN, Indigestion, Heartburn, Starting on Sat07/07/21 at 1557, Until 07/08/21 at 1629, Shake Well, Post-Op meperidine (DEMEROL) injection 12.5 mg (COMPLETED) 12.5 mg, Intravenous, Once as needed, Other, Intractable shivering, 1 dose, Starting on Sat07/07/21 at 1450, Until Sat07/07/21 at 1539, Please call physician if this order is required, PACU 1539 (Given - Provider: Heather Jimenez RN - Comment: shivering) metoclopramide (REGLAN) injection 10 mg 10 mg, Intravenous, Every 6 hours PRN, Nausea, Vomiting, Starting on Sat07/07/21 at 1557, Until 07/08/21 at 1629, If no relief from ondansetron (Zofran) Discontinue IV Reglan once able to take PO, Post-Op morphine injection 2 mg (CANCELED) 2 mg, Intravenous, Every 2 hours PRN, Other, mild pain (scale 1-3), Starting on Sat07/07/21 at 0047, Until Sat07/07/21 at 1557 0156 (Given - Provider: Alba Palomares, RN)0725 (Given - Provider: Anushka Le RN)1239 (JAN Hold - Provider: User Epic - Reason: Unreviewed Transfer Orders)1508 (JAN Unhold - Provider: User Epic) ondansetron (ZOFRAN) injection 4 mg 4 mg, Intravenous, Every 8 hours PRN, Nausea, Vomiting, Starting on Sat07/07/21 at 1557, Until 07/08/21 at 1629, Discontinue IV Zofran once able to take PO, Post-Op oxyCODONE immediate release (ROXICODONE) tablet 5 mg 5 mg, Oral, Every 4 hours PRN, Severe pain (Scale 8 - 10), Starting on Sat07/07/21 at 1557, Until Sat07/08/21 at 1629, Post-Op 1945 (Given - Provider: Vani Love RN) simethicone (MYLICON) chewable tablet 80 mg 80 mg, Oral, 4 times daily PRN, Flatulence, Starting on Sat07/07/21 at 1557, Until Sat07/08/21 at 1629, Post-Op Linked Groups Order Group 1: ketorolac (TORADOL) injection 30 mg (COMPLETED)Jump to med 30 mg, Intravenous, Every 6 hours, 3 doses, First dose on Sat07/07/21 at 2100, Last dose on Sat07/08/21 at 0900, For IV administration, give over 15 seconds., Post- Op Followed by ibuprofen (MOTRIN) tablet 600 mgJump to med 600 mg, Oral, Every 6 hours, First dose on Sat07/08/21 at 1500, Until Discontinued, Post-Op documented in this encounter Care Teams Roving Changer Relationship Specialty Start Date End Date Cortney Colbert NP [address] [place] [address] PCP - General NURSE PRACTITIONER 05/06/21 10/07/22 documented as of this encounter
--- OUTSIDE RECORDS SUMMARY | 2024-11-14 19:16 | XMS_ITS | Encounter Summary ---
Author Organization [facility] Address [address] [place] [address]. [place], [place] [id number] [place] [id number] Care Team Providers Care Bar Turner Name Role Phone Fiona Parkinson MD Primary Care Pr ovider Unavailable Reason for Visit * Reason Comments New Patient Cough Dx'd with bronchitis by [facility] 10/06/22 Medication Management Discuss misophonia and taking a beta nadia Encounter Details Date Type Department Care Team (Late st Contact Info) Description 10/08/2022 11:00 AM BURNING PLANT OPERATOR Office Visit [facility] - [address] [place] [address] Fiona Parkinson MD New Patient; Cough (Dx'd with bronchitis by [facility] 10/06/22); Medication Management (Discuss misophonia and taking a beta nadia) Social History Tobacco Use Types Packs/Day Years [...] Coronavirus/COVID-19? No / Unsure 10/08/2022 10:45 AM BURNING PLANT OPERATOR documented as of this encounter Last Filed Vital Signs Vital Sign Reading Time Taken Comments Blood Pressure 114/73 10/08/2022 11:16 AM BURNING PLANT OPERATOR Pulse 78 10/08/2022 11:16 AM BURNING PLANT OPERATOR Temperature 37.4 ??C (99.4 ??F) 10/08/2022 11:[address] Respiratory Rate 18 10/08/2022 11:16 AM BURNING PLANT OPERATOR Oxygen Saturation 98% 10/08/2022 11:16 AM BURNING PLANT OPERATOR Inhaled Oxygen Concentration - - Weight 77.6 kg (171 lb) 10/08/2022 11:16 AM BURNING PLANT OPERATOR Height 161.3 cm (5' 3.5 ) 10/08/2022 11:16 AM CS T Body Mass Index 29.82 10/08/2022 11:16 AM BURNING PLANT OPERATOR documented in this encounter Functional Status * [...] * Patient Instructions* Fiona Parkinson MD - 10/08/2022 11:00 AM BURNING PLANT OPERATOR For depression restarted Wellbutrin 150 mg take 1 tablet every morning for the first 3 days and if you are tolerating this well then you can increase it on the fourth day to 1 tablet twice a day thereafter. I have also started propranolol 10 mg take 1 tablet twice a day. We pepper labs in the office for you today and I will see you back in 3 weeks. ING PLANT OPERATOR documented in this encounter Progress Notes * Fiona Parkinson MD - 10/08/2022 11:00 AM CST Angela Peterson is a 21-year-old female who presents today alone for evaluation of Chief Complaint Patient presents with ??? New Patient ??? Cough Dx'd with bronchitis by [facility] 10/06/22 ??? 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; she has a fight/flight response to certain noises or visuals that caused her to feel extremely uncomfortable and makes her angry and feels like she wants to escape -She has been dealing with this for years and is caused her depression -She states that she has had prior suicide attempts; she was thinking about hurting herself about 3weeks ago however she called the suicide hotline number and they helped her through -At this time although she may have thoughts of suicide she does not have any current plan to hurt herself or anyone else -she is open to trying depression medication at this time; she states she was previously on sertraline which is really helping her a lot but it caused her to eat a lot and she has been gaining a lot of weight -She did do a [employer] testing but does not have the results; she will confirm with her parents ifthey have it -She is wondering if she can try propranolol as she has social anxiety and migraines and there has been a report that propranolol may even help with misophonia -She states that as time goes on there are more sounds that are triggering her; even tapping or shaking of the foot and the clicking of the mouse or when someone swipes on their phone really aggravates her as well -It is affecting her relationships with people and her and her boyfriend are most broke up 3 weeks ago -She states it is very difficult for people to understand what she is going through and she feels bad when she is having to tell people to lower the volume on the TV or stop certain things because itbothers her -She has no friends as a result -She is currently living with her boyfriend and his parents -She wants help -She has seen ENT in the past and audiology and they gave her hearing aids and she often has to drown out noises that affect her -She states she cannot even eat in a quiet room and often has to listen to music because she cannoteven stand hearing her saliva moving in her mouth -She is highly anxious and depressed -She also states that she gets migraines and would like something that is preventative that she cantake to help reduce her migraines that she gets PHQ-9: 10/08/2022 PHQ2/PHQ 9 DEPRESSION SCREEN QUESTIONAIRE LITTLE INTEREST OR PLEASURE IN DOING THINGS 0-Not at All 0-Not at All FEELING DOWN, DEPRESSSED,OR HOPELESS 1-Several Days 0-Not at All PHQ2 DEPRESSION TOTAL SCORE 1 0 TROUBLE FALLING OR STAYING ASLEEP OR SLEEPING TOO MUCH 3-Nearly every day FEELING TIRED OR HAVING LITTLE ENERGY 3-Nearly every day POOR APPETITE OR OVEREATING 3-Nearly every day FEELING BAD ABOUT YOURSELF 2-More than half the days TROUBLE CONCENTRATING ON THINGS 0-Not at All MOVING OR SPEAKING SO SLOWLY THAT OTHER PEOPLE COULD HAVE NOTICED 1-Several Days THOUGHTS THAT YOU WOULD BE BETTER OFF 1-Several Days DEPRESSION SCREENING TOTAL SCORE 14 IF YOU CHECKED OFF ANY PROBLEMS Somewhat difficult Multiple values from one day are sorted in reverse-chronological order LILIAN-7 (Generalized Anxiety Disorder) Screening 10/08/2022 LILIAN-7 Feeling nervous, anxious and on edge 3 - nearly every day Not being able to stop or control worrying 3 - nearly every day Worrying too much about different things 3 - nearly every day Trouble Relaxing 3 - nearly every day Being so restless that it's hard to sit still 3 - nearly every day Becoming easily annoyed or irritable 3 - nearly every day Feeling afraid as if something awful might happen 1 - several days Total Score 19 If you checked off any problems, how difficult have those problems made it for you to do your work take care of things at home or get along with other people? very difficult Multiple values from one day are sorted in reverse-chronological order Past Medical History: Diagnosis Date ??? Depression [...] 1.0 times per week Types: Marijuana Health Edi silva was reviewed. Medications: Current Outpatient Medications Medication Sig Dispense Refill ??? albuterol sulfate HFA 108 (90 Base) MCG/ACT inhaler ??? buPROPion SR (WELLBUTRIN SR) 150 MG 12 hr tablet Take 1 tablet every morning x 3 days, then increase to 1 tablet twice a day 60 tablet 2 ??? predniSONE (DELTASONE) 20 MG tablet Take 40 mg by mouth daily. Take for 5 days ??? propranolol (INDERAL) 10 MG tablet Take 1 tablet (10 mg total) by mouth 2 (two) times daily. 60tablet 2 No current facility-administered medications for this visit. [...] for shortness of breath. Cardiovascular: Negative for chest pain, palpitations and leg swelling. Gastrointestinal: Negative for abdominal pain, nausea and vomiting. Objective / Physical Exam: Filed Vitals: 10/08/22 1116 BP: 114/73 Pulse: 78 Resp: 18 Temp: 99.4 ??F (37.4 ??C) TempSrc: Temporal SpO2: 98% Weight: 77.6 kg (171 lb) Height: 5' 3.5 (1.613 m) Body mass index is 29.82 kg/m??. Physical Exam Vitals reviewed. Constitutional: General: [...] breath sounds. No wheezing, rhonchi or rales. Abdominal: General: Bowel sounds are normal. There is no distension. Palpations: Abdomen is soft. Tenderness: There is no abdominal tenderness. There is no guarding. Musculoskeletal: Cervical back: Normal range of motion and neck supple. No tenderness. Lymphadenopathy: Cervical: No cervical adenopathy. Skin: General: Skin is warm. Neurological: Mental Status: She is alert and oriented to person, place, and time. Psychiatric: Behavior: Behavior normal. Comments: She is tearful on exam when talking about her disorder Lab / In Office Testing / Radiograph review: No results found for this visit on 10/08/22. Assessment/Plan: 1. Weight gain CBC W/DIFF AUTOMATED COMPREHENSIVE METABOLIC PANEL HEMOGLOBIN, GLYCOSYLATED TSH W/REFLEX LIPID PANEL VENIPUNC ARM DRAW 2. Overweight CBC W/DIFF AUTOMATED COMPREHENSIVE METABOLIC PANEL HEMOGLOBIN, GLYCOSYLATED TSH W/REFLEX LIPID PANEL VENIPUNC ARM DRAW 3. Misophonia COMPREHENSIVE METABOLIC PANEL TSH W/REFLEX VENIPUNC ARM DRAW 4. Social anxiety disorder propranolol (INDERAL) 10 MG tablet buPROPion SR (WELLBUTRIN SR) 150 MG 12 hr tablet VENIPUNC ARM DRAW 5. Other migraine without status migrainosus, not intractable propranolol (INDERAL) 10 MG tablet VENIPUNC ARM DRAW 6. Moderate episode of recurrent major depressive disorder (CMS/HCC) buPROPion SR (WELLBUTRIN SR) 150 MG 12 hr tablet VENIPUNC ARM DRAW -Patient states that she has gained weight and her BMI is in the overweight range at 29.8 to -Labs were ordered and drawn in the office today -She has quite severe depression and anxiety; she tried sertraline in the past and it worked well for her but it caused her to eat a lot and gained weight and so we will try Wellbutrin 150 mg 1 tablet in the morning x3 days and if tolerating the dose well then can increase it to 1 tablet twice a day on day 4 and thereafter - she has no active thoughts or plan to hurt herself or anyone else -She does have social anxiety and migraines and so started her on propranolol 10 mg 1 tablet twice a day; there is 1 case report on [facility] that states someone with misophonia responded well to propranolol so we will see if this helps her as well I spent 40 minutes today reviewing the patient's medical record, obtaining history, performing an exam, ordering medications, tests, and/or procedures, documenting in the medical record and counseling and educating the patient. Followup Plan: Return in about 3 weeks (around 10/29/2022) for depression follow-up. Instructions on the sign/symptoms of worsening problems were given and verbal acknowledgement of understanding was noted. Those present were instructed to call the office during business hours or go to convenient care when the office is closed. If it's an emergency then go to an ER if necessary to address these worsening conditions. The patient verbalized understanding and agreed to the plan. Allquestions answered to the patient's verbalized satisfaction. Patient Instructions For depression restarted Wellbutrin 150 mg take 1 tablet every morning for the first 3 days and if you are tolerating this well then you can increase it on the fourth day to 1 tablet twice a day thereafter. I have also started propranolol 10 mg take 1 tablet twice a day. We pepper labs in the office for you today and I will see you back in 3 weeks. Fiona Parkinson MD Family Medicine [facility] ING PLANT OPERATOR documented in this encounter Plan of Treatment Not on file documented as of this encounter Procedures Procedure Name Priority Date/Time Associated Diagnosis Comments COLLECTION VENOUS BLOOD VENIPUNCTURE Routine 10/08/2022 12:21 PM BURNING PLANT OPERATOR Weight gain Overweight Misophonia Social anxiety disorder Other migraine without status migrainosus, not intractable Moderate episode of recurrent major depressive disorder (CMS/HCC H[facility]/HCC) TSH W/REFLEX Routine 10/08/2022 12:20 PM BURNING PLANT OPERATOR Weight gain Overweight Misophonia HEMOGLOBIN, GLYCOSYLATED Routine 10/08/2022 12:20 PM BURNING PLANT OPERATOR Weight gain Overweight COMPREHENSIVE METABOLIC PANEL Routine 10/08/2022 12:20 PM BURNING PLANT OPERATOR Weight gain Overweight Misophonia LIPID PANEL Routine 10/08/2022 12:20 PM BURNING PLANT OPERATOR Weight gain Overweight CBC W/DIFF AUTOMATED Routine 10/08/2022 12:20 PM BURNING PLANT OPERATOR Weight gain Overweight documented in this encounter Results * LIPID PANEL (10/08/2022 12:20 PM BURNING PLANT OPERATOR) CHOLESTEROL 154 <200 MG/DL 10/09/2022 12:22 AM BURNING PLANT OPERATOR [facility] TRIGLYCERIDES 56 <150 MG/DL 10/09/2022 12:22 AM BURNING PLANT OPERATOR [facility] HDL 60 >40 MG/DL 10/09/2022 12:22 AM BURNING PLANT OPERATOR [facility] LDL-C 83 <100 MG/DL 10/09/2022 12:22 AM BURNING PLANT OPERATOR [facility] VLDL CALCULATION 11 5 - 28 MG/DL 10/09/2022 12:22 AM BURNING PLANT OPERATOR [facility] CHOL/HDL RATIO 2.6 0.0 - 4.0 10/09/2022 12:22 AM BURNING PLANT OPERATOR [facility] LDL/HDL 1.4 0.41 - 2.13 10/09/2022 12:22 AM BURNING PLANT OPERATOR [facility] NON HDL CHOLESTEROL 94 <140 MG/DL 10/09/2022 12:22 AM BURNING PLANT OPERATOR [facility] 10/08/2022 12:2 0 PM BURNING PLANT OPERATOR Fiona Parkinson MD LABORATORY Final Result [facility] [address] [place] [address], [place] [phone] * TSH W/REFLEX (10/08/2022 12:20 PM BURNING PLANT OPERATOR) TSH 0.535 0.358 - 3.740 uIU/ML 10/09/2022 12:22 AM BURNING PLANT OPERATOR [facility] 10/08/2022 12:2 0 PM BURNING PLANT OPERATOR Fiona Parkinson MD LABORATORY Final Result Performing Organization Address City/[facility]/ZIP Co de Phone Number [address] [address], [place] [phone] * (ABNORMAL) HEMOGLOBIN, GLYCOSYLATED (10/08/2022 12:20 PM BURNING PLANT OPERATOR) HGB A1C 5.4 4.5 - 6.2 % 10/08/2022 10:25 PM BURNING PLANT OPERATOR [facility] ESTIMATED AVG GLUCOSE 108(H) 74 - 106 MG/DL 10/08/2022 10:25 PM BURNING PLANT OPERATOR [facility] 10/08/2022 12:2 0 PM BURNING PLANT OPERATOR Fiona Parkinson MD LABORATORY Final Result Performing Organization Address City/[facility]/ZIP Co de Phone Number [address] [place] [address], [place] [phone] * (ABNORMAL) COMPREHENSIVE METABOLIC PANEL (10/08/2022 12:20 PM BURNING PLANT OPERATOR) [facility] SODIUM S/P/B 142 136 - 145 MMOL/L 10/09/2022 12:22 AM [facility] POTASSIUM S/P/B 4.0 3.5 - 5.1 MMOL/L 10/09/2022 12:22 AM [facility] CHLORIDE S/P/B 106 98 - 107 MMOL/L 10/09/2022 12:22 AM [facility] CO2 23.0 21 - 32 MMOL/L 10/09/2022 12:22 AM [facility] GLUCOSE 132(H) 70 - 99 MG/DL 10/09/2022 12:22 AM [facility] BUN 17 7 - 18 MG/DL 10/09/2022 12:22 AM [facility] CREATININE S/P/B 0.62 0.55 - 1.02 MG/DL 10/09/2022 12:22 AM [facility] CALCIUM S/P/B 9.2 8.4 - 10.5 MG/DL 10/09/2022 12:22 AM [facility] BILIRUBIN TOTAL S/P/B 0.3 0.2 - 1.0 MG/DL 10/09/2022 12:22 AM [facility] ALKALINE PHOSPHATASE S/P/B 69 52 - 144 U/L 10/09/2022 12:22 AM [facility] AST 13(L) 15 - 37 U/L 10/09/2022 12:22 AM [facility] ALT 20 14 - 59 U/L 10/09/2022 12:22 AM [facility] TOTAL PROTEIN S/P/B 7.2 6.4 - 8.2 G/DL 10/09/2022 12:22 AM [facility] ALBUMIN S/P/B 4.1 3.4 - 5.0 G/DL 10/09/2022 12:22 AM BURNING PLANT OPERATOR [facility] [place] ANION GAP 13.0 5 - 15 MMOL/L 10/09/2022 12:22 AM BURNING PLANT OPERATOR [facility] Comment:REFERENCE RANGE NOT ESTABLISHED OSMOLALITY (CALC) 297 MOSM/KG 022 12:22 AM BURNING PLANT OPERATOR [facility] [place] Comment:REFERENCE RANGE NOT ESTABLISHED GFR ESTIMATE >90 >90 ML/MIN/1. 73 M2 10/09/2022 12:22 AM BURNING PLANT OPERATOR [facility] GFR NOTES GFR REFERENCE S: 10/09/2022 12:22 AM [facility] [place] Comment: THE ESTIMATED GFR IS CALCULATED USING THE 2020 CKD-EPI EQUATION. THE FOLLOWING CATEGORIES FOR GRADING RENAL FUNCTION ARE RECOMMENDED BY THE INTERNATIONAL SOCIETY OF NEPHROLOGY (KDIGO 2012 CLINICAL PRACTICE GUIDELINE). G1,NORMAL OR HIGH: >89 ml/min/1.73 m2 G2,MILDLY DECREASED: 60-89 ml/min/1.73 m2 G3A,MILDLY TO MODERATELY DECREASED: 45-59 ml/min/1.73 m2 G3B,MODERATELY TO SEVERELY DECREASED: 30-44 ml/min/1.73 m2 G4,SEVERELY DECREASED: 15-29 ml/min/1.73 m2 G5,KIDNEY FAILURE: <15 ml/min/1.73 m2 10/08/2022 12:2 0 PM BURNING PLANT OPERATOR Fiona Parkinson MD LABORATORY Final Result [facility] [place] [address] [place] [address], * (ABNORMAL) CBC W/DIFF AUTOMATED (10/08/2022 12:20 PM BURNING PLANT OPERATOR) WBC 8.9 4.0 - 10.8 x10'3/uL 10/09/2022 2:04 AM BURNING PLANT OPERATOR [facility] RBC 4.69 4.10 - 5.40 x10'6/uL 10/09/2022 2:04 AM [facility] HGB 12.8 12.0 - 16.0 G/DL 10/09/2022 2:04 AM [facility] HCT 40.1 36.0 - 47.0 % 10/09/2022 2:04 AM [facility] MCV 85.5 78.0 - 100.0 FL 10/09/2022 2:04 AM [facility] MCH 27.3 27.0 - 31.0 PG 10/09/2022 2:04 AM [facility] MCHC 31.9(L) 33.0 - 36.0 G/DL 10/09/2022 2:04 AM [facility] RDW 13.6 11.5 - 14.5 % 10/09/2022 2:04 AM [facility] PLT 239 150 - 350 x10'3/uL 10/09/2022 2:04 AM [facility] MPV 13.3(H) 7.4 - 10.4 FL 10/09/2022 2:04 AM [facility] IMMATURE GRANS % 0.1 % 10/09/20 22 2:05 AM [facility] NEUTROPHILS % 86.4 % 10/09/2022 2:05 AM [facility] EOSINOPHILS % 0.0 % 10/09/2022 2:05 AM [facility] BASOPHILS % 0.1 % 10/09/2022 2:05 AM [facility] LYMPHOCYTES % 10.4 % 10/09/2022 2:05 AM [facility] MONOCYTES % 3.0 % 10/09/2022 2:05 AM [facility] ABS. IMMATURE GRANULOCYTES 0.01 0.00 - 0.03 x10'3/uL 10/09/2022 2:05 AM BURNING PLANT OPERATOR [facility] ABS. NEUTROPHILS 7.68 1.60 - 8.30 x10'3/uL 10/09/2022 2:05 AM BURNING PLANT OPERATOR [facility] ABS. EOSINOPHILS 0.00 0.00 - 0.40 x10'3/uL 10/09/2022 2:05 AM BURNING PLANT OPERATOR [facility] ABS. BASOPHILS 0.01 0.00 - 0.20 x10'3/uL 10/09/2022 2:05 AM BURNING PLANT OPERATOR [facility] ABS. LYMPHOCYTES 0.93 0.80 - 4.70 x10'3/uL 10/09/2022 2:05 AM BURNING PLANT OPERATOR [facility] ABS. MONOCYTES 0.27 0.00 - 1.50 x10'3/uL 10/09/2022 2:05 AM [facility] RBC MORPHOLOGY NORMAL 10/09/2022 2:05 AM [facility] PLT MORPH. NORMAL 10/09/2022 2:05 AM [facility] PLT EST. NORMAL x10'3/uL 10/09/2022 2:05 AM BURNING PLANT OPERATOR [facility] DIFFERENTIAL TYPE AUTO-DIFF VERIFIED BY BLOOD SMEAR SCAN. 10/09/2022 2:05 AM [facility] 10/08/2022 12:2 0 PM BURNING PLANT OPERATOR Fiona Parkinson MD LABORATORY Final Result [facility] [address] [place] [address], [place] [phone] documented in this encounter Visit Diagnoses Diagnosis Weight gain- Primary Abnormal weight gain Overweight Misophonia Social anxiety disorder Social phobia Other migraine without status migrainosus, not intractable Moderate episode of recurrent major depressive disorder (CMS/HCC [facility]/HCC) documented in this encounter Additional Health Concerns Assessment Noted Time PHQ-9 Depression Total Score: 14 022 1:17 PM BURNING PLANT OPERATOR documented as of this encounter Care Teams Bar Turner Relationship Specialty Start Date End Date Fiona Parkinson MD PCP - General FAMILY PRACTICE 10/08/22 04/14/23 documented as of this encounter
--- OUTSIDE RECORDS SUMMARY | 2024-11-14 19:16 | XMS_ITS | Encounter Summary ---
Author Organization [facility] Address [address] [place] [address]. [place] [address] [place] [address] Care Team Providers Care Issuing Operator Name Role Phone Filemon Wil HESTER Primary Care Provider Reason for Visit * Reason Comments Skin Problem * Auth/Cert Specialty Diagnoses / Procedures Referred By Contac t Referred To Contact Diagnoses Cellulitis Cellulitis of right arm Cellulitis Procedures GENERAL Referral ID Status Reason Start Date Expiration Date Visits Re quested Visits Authorized [id number] 1 1 Encounter Details Date Type Department Care Team (Late st Contact Info) Description 01/26/2022 1:53 AM CDT - 01/28/2022 12:55 PM CDT Hospital Encounter [facility] [address] [place] [address] Luisana Gonzales MD [address] [place] [address] [id number] Luzma Minor MD [address] [id number] Hector Crawley, SARAH [facility] [place], [place] [id number] Madeleine Rdo APRN 1 [place] [address] [phone] (Work) [place] [address] [phone] (Work) Skin Problem Discharge Disposition: Home or Self Care (Routine Discharge) Social History Tobacco Use Types Packs/Day Years Used Date Smoking Tobacco: Never Smokeless Tobacco: Never Alcohol Use Standard Drinks/Week Comments Not Currently 0 (1 standard drink = 0.6 oz pur e alcohol) once ever few months Comments No Sex and Gender Information Value Date Recorded Sex Assigned at Not on file Legal Sex Female 7:16 PM CDT Gender Identity Not on file Sexual Orientation Not on file COVID-19 Exposure Response Date Recorded In the last 10 days, have yo u been in contact with someone who was confirmed or suspected to have Coronavirus/COVID-19? No / Unsure 01/26/2022 1:46 AM CDT documented as of this encounter Last Filed Vital Signs Vital Sign Reading Time Taken Comments Blood Pressure 118/67 01/28/2022 10:53 AM CDT Pulse 78 01/28/2022 10:53 AM CDT Temperature 36.8 ??C (98.2 ??F) 01/28/2022 1 0:53 AM CDT Respiratory Rate 16 01/28/2022 10:5 3 AM CDT Oxygen Saturation 98% 01/28/2022 10: 53 AM CDT Inhaled Oxygen Concentration - - Weight 81.5 kg (179 lb 10.8 oz) 01/28/2022 4:15 AM CDT Height 160 cm (5' 3 ) 01/26/2022 3:41 AM CDT Body Mass Index 31.83 01/26/2022 3:41 AM CDT documented in this encounter Functional Status * Question Answer Date of Assessment Author Status Do you have serious difficulty walking or climbing stairs? No 01/26/2022 3:52 AM CDT Taylor Lo RN Acti ve * Question Answer Date of Assessment Author Status Do you have difficulty dressing or bathing? No 01/26/2022 3:52 AM CDT Taylor Lo RN Active Because of a physical, mental, or emotional condition, do you have difficulty doing errands alone such as visiting a doctor's office or shopping? No 01/26/2022 3:52 AM CDT Flynn Lo i, RN Active * RETIRED Are you deaf [...] difficulty concentrating, remembering, or making decisions? No 01/26/2022 3:52 AM CDT Taylor Lo RN Active * Because of a physical, mental, or emotional condition, do you have serious difficulty concentrating, remembering, or making decisions? Answer Entry Date Author Status No 01/26/2022 3:52 AM CDT Taylor Lo R N Active documented in this encounter Discharge Summaries * Madeleine Rod APRN - 01/28/2022 10:35 AM CDT Images from the original note were not included. Hospitalist Discharge Summary Patient ID: Angela Peterson. female. [id number]. Admit date: 01/26/2022 1:53 AM Discharge date and time: 01/28/22 Admitting Physician: Gianluca Chester MD Attending Physician: Madeleine Rod APRN Primary Care Physician: WIL COLBERT NP Discharge Physician: MADELEINE ROD APRN Hospital Diagnosis: Cellulitis Admission Condition: fair Discharged Condition: Stable Code Status: Full Code Indication for Admission: Chief Complaint Patient presents with ??? Skin Problem Readmission/Mortality Score at discharge: Low 0-28, Medium 29-58, High >59 LACE+ Score Readmission Score: 46 Male Patient: Urgent Admission: 15 Discharge Institution: Length of Stay: 3 Alternative Level of Care Status: 0 ED Visits in Previous 6 Months: 3 Elective Admission in Previous Year: 0 Comorbidity Score (by age & number of urgent admissions): 25 Hospital Course: Angela Peterson is a 21-year-old female with no significant past medical history presented with redness to the back of her right arm. Her symptoms started on Monday 01/22. She endorses spreading redness. At that center of the redness a blister developed. She went to her PCP on Saturday. The blister was popped by her PCP and cultured. She was started on doxycycline. After startingthe antibiotic, it initially got better, but then the redness returned along with pain and itching.The redness continued to spread. She endorses low- grade fever and lightheadedness. She denies any nausea or vomiting. She did have one episode of diarrhea on Saturday night. She was started on IV antibiotics. Vancomycin was infusing, she started having teeth chattering, shivering, sore throat, and dysphagia. She said it felt like her throat was closing up. After the vancomycin was stopped, it resolved. She tells me that this is the fourth time she has had redness and blisters before. The last time was about 3 months ago. Over the summer, she had multiple blisters on the back of her legs and was initially thought to be poison oak. Cellulitis of the right upper arm Right upper arm erythema with vesicle??present on admission. Failed oral doxycycline. Treating with IV??ancef (had reaction to vancomycin-appeared to be true reaction not red man's) Wound culture??at PCP's office??obtained on 01/23. Prelim showing gram neg and post rods Pt instructed to follow up with PCP office with results Improvement noted with Ancef: prescribe Keflex at discharge Add some low dose steroids due to suspected histamine response: improved with steroids: continue 5 day course Referral to outpatient dermatology and educated pt importance of making an apt at discharge ?? Hypokalemia Resolved.? Findings that require further workup: PCP wound cultures Outpt derm apt Consults: none Significant Diagnostic Studies: Recent Results (from the past 24 hour(s)) C-REACTIVE PROTEIN Collection Time: 01/28/22 7:47 AM Result Value Ref Range C-REACTIVE PROTEIN 1.10 (H) <0.9 mg/dL CBC W/DIFF AUTOMATED Collection Time: 01/28/22 7:47 AM Result Value Ref Range WBC 9.2 4.4 - 11.0 x10'3/uL RBC 4.66 4.50 - 5.10 x10'6/uL HGB 12.9 12.3 - 15.3 G/DL HCT 39.4 35.9 - 44.6 % MCV 84.5 80.0 - 96.0 FL MCH 27.7 25.3 - 30.9 PG MCHC 32.7 31.0 - 34.1 G/DL RDW 13.5 12.4 - 15.1 % PLT 158 151 - 353 x10'3/uL MPV 13.6 (H) 9.6 - 12.0 FL RBC MORPHOLOGY NORMAL PLT MORPH. NORMAL WBC MORPHOLOGY NORMAL LYMPHOCYTES 19.6 15.8 - 45.0 % NEUTROPHILS 74.2 (H) 42.1 - 71.9 % MONOCYTES 5.5 (L) 5.7 - 12.5 % EOSINOPHILS 0.2 0.0 - 5.6 % BASOPHILS 0.2 0.0 - 1.3 % ABS. NEUTROPHILS 6.80 (H) 1.40 - 6.00 x10'3/uL IMMATURE GRANS 0.3 0.0 - 0.5 % ABS. LYMPHOCYTES 1.80 0.80 - 4.70 x10'3/uL BASIC METABOLIC PANEL Collection Time: 01/28/22 7:47 AM Result Value Ref Range GLUCOSE 108 (H) 70 - 99 MG/DL BUN 14 7 - 18 MG/DL CREATININE S/P/B 0.60 0.55 - 1.02 MG/DL SODIUM 144 136 - 145 MMOL/L POTASSIUM 3.8 3.5 - 5.1 MMOL/L CHLORIDE S/P/B 106 100 - 108 MMOL/L CO2 25.6 21 - 32 MMOL/L CALCIUM 9.4 8.5 - 10.1 MG/DL ANION GAP 12.4 5 - 15 MMOL/L BUN CREATININE RATIO 23.3 6 - 26 eGFR Non-Afr. Amer. >90 >90 ML/MIN/1.73 M2 eGFR Afr. Amer. >90 >90 ML/MIN/1.73 M2 Radiology Reports : none Discharge Exam: Filed Vitals: 01/27/22 2017 01/27/22 2330 01/28/22 0415 01/28/22 0715 BP: 109/61 119/55 114/53 115/68 Pulse: 60 78 86 68 Resp: 16 18 18 18 Temp: 97 ??F (36.1 ??C) 97.1 ??F (36.2 ??C) 97 ??F (36.1 ??C) 97.6 ??F (36.4 ??C) TempSrc: Temporal Temporal Temporal Temporal SpO2: 97% 97% 98% 98% Weight: 81.5 kg (179 lb 10.8 oz) Height: Physical Exam HENT: Head: Normocephalic. Nose: Nose normal. Mouth/Throat: Mouth: Mucous membranes are moist. Eyes: Pupils: Pupils are equal, round, and reactive to light. Cardiovascular: Rate and Rhythm: Normal rate and regular rhythm. Pulses: Normal pulses. Heart sounds: Normal heart sounds. Pulmonary: Effort: Pulmonary effort is normal. Breath sounds: Normal breath sounds. Abdominal: General: Abdomen is flat. Bowel sounds are normal. Palpations: Abdomen is soft. Musculoskeletal: General: Normal range of motion. Cervical back: Normal range of motion and neck supple. Skin: General: Skin is warm and dry. Capillary Refill: Capillary refill takes less than 2 seconds. Findings: No erythema or rash. Neurological: General: No focal deficit present. Mental Status: She is alert. Mental status is at baseline. Psychiatric: Mood and Affect: Mood normal. Thought Content: Thought content normal. Discharge Medications: Medication List START taking these medications Morning Afternoon Evening Bedtime As Needed cephALEXin 500 MG capsule Commonly known as: KEFLEX Take 1 capsule (500 mg total) by mouth 2 (two) times daily for 6 days. predniSONE 20 MG tablet Commonly known as: DELTASONE Start taking on: January 29, 2022 Take 1 tablet (20 mg total) by mouth daily for 3 days. Last time this was given: 20 mg on January 28, 2022 8:33 AM CONTINUE taking these medications Morning Afternoon Evening Bedtime As Needed Etonogestrel-Ethinyl Estradiol 0.12-0.015 MG/24HR Ring INSERT 1 RING VAGINALLY FOR 3 WEEKS THEN REMOVE FOR 1 WEEK STOP taking these medications doxycycline hyclate 100 MG tablet Commonly known as: VIBRA-TABS Disposition: Home with self care Time Spent on Discharge: 40 minutes Signed: MADELEINE ROD APRN Cosigned by Luzma Minor MD at 01/28/2022 1:02 PM CDT Associated attestation - Luzma Minor MD - 01/28/2022 1:02 PM CDT I saw the patient on the day of discharge and agree with the discharge plans and disposition. documented in this encounter Discharge Instructions * Discharge Instructions* Montse Botello RN - 01/28/2022 10:53 AM CDT Images from the original note were not included. Patient Education Cellulitis (Skin Infection) Discharge Instructions, Adult About this topic Cellulitis is a skin infection. All people have germs on their skin. Most of the time, these germs do not cause a problem. A skin infection means the germs have gotten into the layers of your skin. Germs can enter your body from a cut, scratch, or bite. The infected part gets red, warm, painful, swollen, and irritated. You need antibiotics to treat the infection. It is important to take all of your antibiotics even if you start to feel better. If not, your infection may come back and be more serious than before. What care is needed at home? ?? Ask your doctor what you need to do when you go home. Make sure you ask questions if you do not understand what the doctor says. This way you will know what you need to do. ?? Prop your painful body part on pillows, keeping it above the level of your heart. This may help lessen pain and swelling. ?? Keep your infected area clean and dry. Do not squeeze, scratch, or rub it. You can gently wash the area with soap and water or take a shower. Pat the area dry with a clean towel. ?? Wash your hands before and after you touch your infected area. ?? Do not put an antibiotic ointment on the infected area. ?? Use clean, warm compresses to help ease pain and swelling. Wet a clean wash cloth or small towelwith hot water. Put it on the area for 5 to 10 minutes. ?? You can draw a line with a waterproof marker around the red area to see if it is getting bigger or smaller. What follow-up care is needed? ?? Your doctor may ask you to make visits to the office to check on your progress. Be sure to keep these visits. ?? If surgery was needed to drain the infection, your doctor may not stitch the area closed. Keep this area clean and covered. ?? If you do have stitches or martínez, you will need to have them taken out. Your doctor will oftenwant to do this in 1 to 2 weeks. What drugs may be needed? The doctor may order drugs to: ?? Treat the infection. Finish all of the antibiotics, even if the infection appears to have gone away. ?? Help with pain and swelling Will physical activity be limited? Your activity may be decreased if a leg or arm is infected. It may be painful to move that part of the body. You may not feel well for a few days until the drug to treat the infection starts working. What problems could happen? ?? Infection in the blood. This is sepsis and is very serious. ?? Bone infection ?? Inflammation of the lymph vessels ?? Inflammation of the heart ?? Meningitis ?? Shock ?? Tissue or gangrene What can be done to prevent this health problem? ?? Wear proper clothing and shoes to cover your body and prevent cuts and bruises. ?? Keep your nails trimmed to avoid scratches. ?? Keep skin moisturized. Use lotion that does not have fragrance added to avoid dry, cracked skin. ?? Treat athlete's foot as directed by your doctor. ?? If you have a chronic skin condition, talk with your doctor about how to keep it under the best control. ?? If you have chronic swelling (edema) of an arm or leg, talk with your doctor about how to lower the swelling. Your doctor may want you to wear support stockings. ?? Practice good hygiene. Wash your hands often with soap and water. ?? If you often have fungal infections, ask your doctor if you should be using an antifungal drug to prevent the cellulitis from occurring again. ?? If you scratch or cut your skin, wash the area carefully with soap and water. When do I need to call the doctor? ?? Signs of infection. These include a fever of 100.4??F (38??C) or higher, chills, or wound that will not heal. ?? You have a fever of 100.4??F (38??C) or higher or chills. ?? The area becomes more red, swollen, or painful. ?? The redness or swelling spreads up your leg or arm or to a larger area. ?? The infected area is not better after 3 days of taking antibiotics. Teach Back: Helping You Understand The Teach Back Method helps you understand the information we are giving you. After you talk with the staff, tell them in your own words what you learned. This helps to make sure the staff has described each thing clearly. It also helps to explain things that may have been confusing. Before going home, make sure you can do these: ?? I can tell you about my condition. ?? I can tell you about to care for my wound. ?? I can tell you what I will do if I have swelling, redness, or warmth around my wound. Where can I learn more? [employer] https://familydoctor.org/condition/cellulitis/ NHS Choices http://www.nhs.uk/Conditions/Cellulitis/Pages/Causes.aspx Last Reviewed Date 2021-04-13 Consumer Information Use and Disclaimer This generalized information is a limited summary of diagnosis, treatment, and/or medication information. It is not meant to be comprehensive and should be used as a tool to help the user understand and/or assess potential diagnostic and treatment options. It does NOT include all information about conditions, treatments, medications, side effects, or risks that may apply to a specific patient. Itis not intended to be medical advice or a substitute for the medical advice, diagnosis, or treatment of a health care provider based on the health care provider's examination and assessment of a patient???s specific and unique circumstances. Patients must speak with a health care provider for complete information about their health, medical questions, and treatment options, including any risks orbenefits regarding use of medications. This information does not endorse any treatments or medications as safe, effective, or approved for treating a specific patient. [employer] and its affiliates disclaim any warranty or liability relating to this information or the use thereof. The use of this information is governed by the Terms of Use, available at https://www.[employer].Criptext/en/solutions/lexicomp/about/lauri Copyright Copyright ?? 2020 [employer]. and its affiliates and/or licensors. All rights reserved. documented in this encounter Medications at Time of Discharge cephALEXin 500 MG capsule Take 1 capsule (500 mg total) by mouth 2 (two) times daily for 6 days. 12 capsule 01/28/2022 2 Etonogestrel-Eth inyl Estradiol 0.12-0.015 MG/24HR RING INSERT 1 RING VAGINALLY FOR 3 WEEKS THEN REMOVE FOR 1 WEEK 01/19/2022 2 predniSONE 20 MG tablet Take 1 tablet (20 mg total) by mouth daily for 3 days. 3 tablet 01/29/2022 2 documented as of this encounter Progress Notes * Madeleine Rod, SARAH - 01/27/2022 1:46 PM CDT Hospitalist Daily Progress Note Subjective Complains of itching with a new blister on inside of leg. Erhythmia to the right upper arm some warmth but no induration. Afebrile Objective Filed Vitals: 01/26/22 2300 01/27/22 0423 01/27/22 0700 01/27/22 1200 BP: 107/57 103/64 109/61 102/61 Pulse: 74 77 62 67 Resp: 18 18 18 16 Temp: 98.7 ??F (37.1 ??C) 97.5 ??F (36.4 ??C) 97.4 ??F (36.3 ??C) 97.5 ??F (36.4 ??C) TempSrc: Tympanic Tympanic Temporal Temporal SpO2: 98% 97% 98% 99% Weight: Height: Physical Exam: GEN: In no acute distress. Breathing comfortably on room air. HEENT: Clear conjunctiva. Mucous membranes moist. RESPIRATORY: Effort normal. CTA, no wheezes or crackles. CVS: RRR, no MRG. Abd: Soft, Nontender. Ext: No ankle edema. MUSCULOSKELETAL: FROM to RUE SKIN: Warm, dry. Large area of erythema that extends from right posterior upper extremity (distal to axilla) through the elbow and into mid forearm. Margins have mildly increased from where there were marked yesterday. About a dime sized fluid filled vesicle is located on the posterior right upper extremity. No appreciable palpable fluctuations or fixed masses. No lymphadenitis in axilla. PSYCH: Appropriate affect NEURO: Alert and oriented. No focal deficits Intake/Output 24H Total: Intake/Output Summary (Last 24 hours) at 01/27/2022 1346 Last data filed at 01/27/2022 1200 Gross per 24 hour Intake 520 ml Output 3250 ml Net -2730 ml Medication ??? acidophilus 1 capsule Oral Daily ??? ceFAZolin 2 g Intravenous Q8H ??? enoxaparin 40 mg Subcutaneous Q24H ??? predniSONE 20 mg Oral Daily PRN Meds: acetaminophen, diphenhydrAMINE, melatonin, ondansetron Labs: Recent Results (from the past 24 hour(s)) C-REACTIVE PROTEIN Collection Time: 01/27/22 10:12 AM Result Value Ref Range C-REACTIVE PROTEIN 2.40 (H) <0.9 mg/dL CBC W/DIFF AUTOMATED Collection Time: 01/27/22 10:12 AM Result Value Ref Range WBC 4.9 4.4 - 11.0 x10'3/uL RBC 4.54 4.50 - 5.10 x10'6/uL HGB 12.4 12.3 - 15.3 G/DL HCT 38.6 35.9 - 44.6 % MCV 85.0 80.0 - 96.0 FL MCH 27.3 25.3 - 30.9 PG MCHC 32.1 31.0 - 34.1 G/DL RDW 13.8 12.4 - 15.1 % PLT 140 (L) 151 - 353 x10'3/uL MPV 13.0 (H) 9.6 - 12.0 FL RBC MORPHOLOGY NORMAL PLT MORPH. NORMAL WBC MORPHOLOGY NORMAL LYMPHOCYTES 37.1 15.8 - 45.0 % NEUTROPHILS 51.5 42.1 - 71.9 % MONOCYTES 7.7 5.7 - 12.5 % EOSINOPHILS 2.9 0.0 - 5.6 % BASOPHILS 0.6 0.0 - 1.3 % ABS. NEUTROPHILS 2.53 1.40 - 6.00 x10'3/uL IMMATURE GRANS 0.2 0.0 - 0.5 % ABS. LYMPHOCYTES 1.82 0.80 - 4.70 x10'3/uL BASIC METABOLIC PANEL Collection Time: 01/27/22 10:12 AM Result Value Ref Range GLUCOSE 102 (H) 70 - 99 MG/DL BUN 10 7 - 18 MG/DL CREATININE S/P/B 0.83 0.55 - 1.02 MG/DL SODIUM 139 136 - 145 MMOL/L POTASSIUM 4.3 3.5 - 5.1 MMOL/L CHLORIDE S/P/B 105 100 - 108 MMOL/L CO2 25.9 21 - 32 MMOL/L CALCIUM 9.0 8.5 - 10.1 MG/DL ANION GAP 8.1 5 - 15 MMOL/L BUN CREATININE RATIO 12.0 6 - 26 eGFR Non-Afr. Amer. >90 >90 ML/MIN/1.73 M2 eGFR Afr. Amer. >90 >90 ML/MIN/1.73 M2 X-Ray No results found. Assessment/Plan: Cellulitis of the right upper arm Right upper arm erythema with vesicle present on admission. Failed oral doxycycline. Treating with IV ancef (had reaction to vancomycin-appeared to be true reaction not red man's) Wound culture at PCP's office obtained on 01/23. Prelim showing gram neg and post rods Follow CRP; mildly increased Continue Ancef WBC nml Add some low dose steroids due to suspected histamine response ?? Hypokalemia Replaced. Continue to monitor. ?? - DVT prophylaxis:??Lovenox - Code status:??Full ? I certify that inpatient services for greater than 2 midnights are medically necessary for this patient. ?? MADELEINE ROD, SARAH 01/27/2022 1:46 PM Cosigned by Luzma Minor MD at 01/27/2022 6:03 PM CDT Associated attestation - Luzma Minor MD - 01/27/2022 6:03 PM CDT I, LUZMA MINOR MD, performed an examination of the patient and discussed the management with the Advanced Practice Provider (RACHEL). I reviewed the RACHEL's progress note and agree with the findings and plan of care, except as I have documented. Erythema of RUE fading with collapsed blister R upper arm. Complained of new itching red lesion on left calf. Suspect dermatitis with superimposed infection. R/O dermatitis herpetiformis. On Ancef and IV steroids. * Angela Darby RN - 01/26/2022 7:53 PM CDT Problem: Discharge Planning Infection Goal: Knowledge of discharge instructions Infection Outcome: Progressing Problem: Infection Goal: Absence of infection signs and symptoms Infection/Isolation Outcome: Progressing Goal: Knowledge of infection control procedures Infection Outcome: Progressing Problem: Pain Goal: Patient's pain/discomfort is manageable Description: Assess and monitor patient's pain using appropriate pain scale. Collaborate with interdisciplinary team and initiate plan and interventions as ordered. Re-assess patient's pain level 30 - 60 minutes after pain management intervention. Outcome: Progressing Problem: Safety Goal: Patient will be injury free during hospitalization Description: Assess and monitor vitals signs, neurological status including level of consciousness and orientation. Assess patient's risk for falls and implement fall prevention plan of care and interventions per hospital policy. Ensure arm band on, uncluttered walking paths in room, adequate room lighting, call light and overbed table within reach, bed in low position, wheels locked, side rails up per policy, and non-skid footwear provided. Outcome: Progressing Problem: Daily Care Goal: Daily care needs are met Description: Assess and monitor ability to perform self care and identify potential discharge needs. Outcome: Progressing * Maria Luisa Cedeno RN - 01/26/2022 4:05 PM CDT 03/18/22 1100 Interdisciplinary Group Information Next Conference Date 01/29/22 Interdisciplinary Group Conference Team Members Present Physician;Case/Care management;Nursing;PT/OT;Pharmacy;Dietary;RACHEL;Tester Regulator;Pastoral Care Barriers to Discharge Barriers Administering IV meds Administering IV meds follow up Continues with IV antibiotics. * Deysi Alvarez RN - 01/26/2022 10:25 AM CDT 01/26/22 1023 Referral Data Referral Reason Discharge Planning Patient Information Primary Caregiver Self Support System Immediate family (parents and grandparents) Baseline ADL's Functional Status Independent Living Arrangements Spouse/significant other;Family members Type of Residence Private residence Ambulation Assistance No Bathing/Grooming Assistance No Dressing Assistance No Behavior Oriented;Cooperative Communication Talks;Understands speaking;Understands [place] Socioeconomic Needs Caregiver Needed No At Risk of Abuse or Neglect No Adequate Resources Yes Psychological Needs: Mental health concerns No Suspected Drug or Alcohol Abuse No Inappropriate Patient/Family Behaviors No Difficult Adjustment to Diagnosis No Recent Hospitalization Recent Hospitalization within 30 days No Anticipated Discharge Needs Change in Living Arrangements No In-Home Care or Equipment No Vocational and/or Role Loss No Inability to Complete ADL's No Anticipated DC Plan Living Arrangements Spouse/significant other;Family members Support Systems Parent;Family members Type of Residence Private residence Assistance Needed No Patient expects to be discharged to: Home Psychosocial Needs With Indication for Social Work Consult Diagnosis/prognosis resulting in poor adjustment or coping with illness No Diagnosis/prognosis with anticipated outcome of major lifestyle changes, including 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 No Independent with all ADLs. Discussed Home Health services with patient. Patient declined now, but stated to check back with her later after she finds out more about her condition and what her needs will be. documented in this encounter H&P Notes * Hector Crawley APRN - 01/26/2022 8:43 AM CDT Hospitalist History and Physical Patient: Angela Peterson Date: 01/26/2022 female, 21-year-old Admit Date: 01/26/2022 Attending: Hector Crawley APRN REASON FOR ADMISSION: Cellulitis HISTORY OF PRESENT ILLNESS: Angela Peterson is a 21-year-old female with no significant past medical history presented with redness to the back of her right arm. Her symptoms started on Monday 01/22. She endorses spreading redness. At that center of the redness a blister developed. She went to her PCP on Saturday. The blister was popped by her PCP and cultured. She was started on doxycycline. After starting the antibiotic, it initially got better, but then the redness returned along with pain and itching. The redness continued to spread. She endorses low-grade fever and lightheadedness. She denies any nausea or vomiting.She did have one episode of diarrhea on Saturday night. She was started on IV antibiotics. Vancomycinwas infusing, she started having teeth chattering, shivering, sore throat, and dysphagia. She said it felt like her throat was closing up. After the vancomycin was stopped, it resolved. She tells me that this is the fourth time she has had redness and blisters before. The last time was about 3 months ago. Over the summer, she had multiple blisters on the back of her legs and was initially thoughtto be poison oak. He tells me she was referred to dermatology, but has not followed up yet. Allergy Allergies Allergen Reactions ??? Sulfa Antibiotics Hives ??? Vancomycin Infusion Reaction ??? Clindamycin Hives Medication list Medications Prior to Admission Medication Sig Dispense Refill ??? doxycycline hyclate 100 MG tablet Take 100 mg by mouth 2 (two) times daily. for 10 days ??? Etonogestrel-Ethinyl Estradiol 0.12-0.015 MG/24HR RING INSERT 1 RING VAGINALLY FOR 3 WEEKS THENREMOVE FOR 1 WEEK No current facility-administered medications on file prior to encounter. Current Outpatient Medications on File Prior to Encounter Medication Sig Dispense Refill ??? doxycycline hyclate 100 MG tablet Take 100 mg by mouth 2 (two) times daily. for 10 days ??? Etonogestrel-Ethinyl Estradiol 0.12-0.015 MG/24HR RING INSERT 1 RING VAGINALLY FOR 3 WEEKS THENREMOVE FOR 1 WEEK Past Medical History Past Medical History: Diagnosis Date ??? Depression 2016 ??? Misophonia 2014 Past Surgical History: Procedure Laterality Date ??? ABDOMINAL SURGERY cyst on ovary, pt. not sure whick side. aug 2018 ??? CLOSED RX NOSE FRACTURE 09/2021 ??? EYE SURGERY ??? FRACTURE SURGERY right 5th finger ??? TONSILLECTOMY Social History Social History Socioeconomic History ??? Marital status: Single Spouse name: Not on file ??? Number of children: Not on file ??? Years of education: Not on file ??? Highest education level: Not on file Occupational History ??? Not on file Tobacco Use ??? Smoking status: Never Smoker ??? Smokeless tobacco: Never Used Vaping Use ??? Vaping Use: Never used Substance and Sexual Activity ??? Alcohol use: Not Currently Comment: once ever few months ??? Drug use: Yes Frequency: 3.0 times per week Types: Marijuana ??? Sexual [...] file Intimate Partner Violence: Not on file Family History Family History Problem Relation Name Age of Onset ??? Thyroid Disease Mother ??? Hypertension Father REVIEW OF SYSTEMS: A 14 point review of systems was taken and pertinent positive as per HPI PHYSICAL EXAMINATION: Vital 24 Hour Range Most Recent Value Temperature Temp Min: 96.8 ??F (36 ??C) Max: 100.6 ??F (38.1 ??C) 96.8 ??F (36 ??C) Pulse Pulse Min: 68 Max: 99 89 Respiratory Resp Min: 17 Max: 18 18 Blood Pressure BP Min: 107/78 Max: 155/64 107/78 Pulse Oximetry SpO2 Min: 98 % Max: 100 % 98 % O2 No data recorded Vital Most Recent Value First Value Weight 81.9 kg (180 lb 8.9 oz) Weight: 79.4 kg (175 lb) Height 5' 3 (160 cm) Height: 5' 3 (160 cm) BMI 31.98 N/A Physical Exam: GEN: In no acute distress. Breathing comfortably on room air. HEENT: Clear conjunctiva. Mucous membranes moist. RESPIRATORY: Effort normal. CTA, no wheezes or crackles. CVS: RRR, no MRG. Abd: Soft, Nontender. Ext: No ankle edema. MUSCULOSKELETAL: FROM to RUE SKIN: Warm, dry. Large area of erythema that extends from right posterior upper extremity (distal to axilla) through the elbow and into mid forearm. Margins have mildly increased from where there were marked yesterday. About a dime sized fluid filled vesicle is located on the posterior right upper extremity. No appreciable palpable fluctuations or fixed masses. No lymphadenitis in axilla. PSYCH: Appropriate affect NEURO: Alert and oriented. No focal deficits Intake/Output last 3 shifts: I/O last 3 completed shifts: In: 2600 [I.V.:2500; IV Piggyback:100] Out: 1600 [Urine:1600] Labs: Recent Labs Lab 01/26/22 0205 NA 144 K 3.4* CL 105 CO2 27.1 AGAP 11.9 BUN 16 CR 0.74 BUNCREATININ 21.6 GFRNON >90 GFR >90 GLU 91 CA 9.1 Recent Labs Lab 01/26/22 0205 WBC 7.0 RBC 4.58 HGB 12.6 HCT 38.8 MCV 84.7 MCH 27.5 MCHC 32.5 PLT 179 RDW 13.6 MPV 13.2* Recent Labs Lab 01/26/22 0205 AST 13* ALT 22 No results for input(s): INR, PTT in the last 168 hours. Invalid input(s): ABG arterial blood gases No results for input(s): TROP, TROPIWB, CPK in the last 168 hours. Invalid input(s): CK-MB No results for input(s): PH, PCO2, PO2, Q9PYNGAMDISW, BICARBWB, BASEDEFICIT, BASEEXCESS in the [id number] hours. Imaging & Other Studies See official reports for full details No results found. No results found for this visit on 01/26/22. Assessment & Plan Cellulitis Right upper arm erythema with vesicle present on admission. Failed oral doxycycline. Treating with IV ancef (had reaction to vancomycin-appeared to be true reaction not red man's) Wound culture at PCP's office obtained on 01/23. Called several times, with no answer. Patient awaiting call back today. Follow CRP Hypokalemia Replaced. Continue to monitor. - DVT prophylaxis: Lovenox - Code status: Full I certify that inpatient services for greater than 2 midnights are medically necessary for this patient. This note was dictated with [employer] medical dictation software; misspellings, punctuation errors, omitted words or dictation variances may occur. HECTOR CRAWLEY APRN 01/26/2022 Cosigned by Luzma Minor MD at 01/26/2022 9:08 PM CDT Associated attestation - Luzma Minor MD - 01/26/2022 9:08 PM CDT I, LUZMA MINOR MD, performed a History and Physical examination of the patient and discussed the management with the Advanced Practice Provider (RACHEL). I reviewed the RACHEL's note and agree with thefindings and plan of care, except as I have documented. Per HPI 21 year-old female Hx recurrent blisters on skin most recently beginning on the right upperextremity pneumonia She had 1 blister upper arm above the elbow and subsequently it was punctured the patient developederythema. The patient said that she had preceding itching prior to development of the erythema. Theerythema progressed downward to her elbow and upward toward her shoulder. She was given IV vancomycin had allergic reaction. Patient also got 1 dose of Zosyn. Patient was initiated on Ancef 1 g IV piggyback every 8 hours According to the patient the erythema is decreasing but is spread beyond the initial borders. Lungs: Clear heart RRR NL S1-S2 RUE, patchy erythema more pink documented in this encounter Nursing Notes * Taylor Lo RN - 01/26/2022 3:41 AM CDT Admitted to room 107 from ED. Lives with significant other. A/O, ambulatory, SBA. Pt shivering, teeth chattering, flushed face, states throat is sore and having difficulty swallowing. Notified MD, stopped IV Vancomycin at this time. Notified . 0410 No longer flushed or teeth chattering, states she is feeling better. d/c Vancomycin. documented in this encounter ED Notes * Tena Messina RN - 01/26/2022 1:54 AM CDT Pt states I had a blister pop up on the back of my R arm 3 days ago. My doctor started me on Doxycycline. I've taken 4 doses of it and special soap. Tonight it feels like it's getting bigger and redder and feels more stiff. I also had another blister pop up. A&Ox4, redness from mid forearm to the middle of the upper arm on the R arm. Two blisters with one larger than the other. Redness doubled in size since marked at MD's office [Saturday]. Ambulatory, respirations even and non-labored * Luisana Gonzales MD - 01/26/2022 1:51 AM CDT Chief Complaint Chief Complaint Patient presents with ??? Skin Problem History of Present Illness 21yo female presenting with right arm cellulitis that has worsened over the past day. She states she noticed redness on her right arm on Saturday and went into see her doctor on Saturday and was startedon doxycycline then. She dates she has been taking the doxycycline as prescribed and it started to get a little bit better and then tonight she noticed that the redness has gotten a lot worse and there was more pain and itching. Is right-hand dominant. She was concerned because tonight the redness spread quite quickly and went outside the borders drawn on Saturday. She did have a low grade fever today. Denies chills. Denies CP, SOB, N/V/D. Had an episode of lightheadedness today. LMP was last week and was normal. She is right hand dominant. Medical History ALLERGIES: Allergies Allergen Reactions ??? Sulfa Antibiotics Hives ??? Clindamycin Hives MEDICATIONS: Prior to Admission medications Medication Sig Start Date End Date Taking? Authorizing Provider chlorhexidine (HIBICLENS) 4 % Liquid Apply topically weekly. Bath with hibiclens soap weekly 12/19/21Donn Simon MD doxycycline hyclate 100 MG tablet Take 100 mg by mouth 2 (two) times daily. for 10 days 01/23/22 [facility] Etonogestrel-Ethinyl Estradiol 0.12-0.015 MG/24HR RING INSERT 1 RING VAGINALLY FOR 3 WEEKS THEN REMOVE FOR 1 WEEK 01/19/22 Doc Abstract PAST MEDICAL HISTORY: Past Medical [...] Review of Systems Review of Systems Constitutional: Positive for chills and fever. HENT: Negative for congestion. Eyes: Negative for visual disturbance. Respiratory: Negative for cough and shortness of breath. Cardiovascular: Negative for chest pain. Gastrointestinal: Negative for abdominal pain, diarrhea, nausea and vomiting. Genitourinary: Negative for dysuria. Musculoskeletal: Negative for neck pain and neck stiffness. Neurological: Positive for light-headedness. Negative for syncope. Psychiatric/Behavioral: Negative for confusion. Physical Exam Filed Vitals: 01/26/22 0157 BP: 129/83 Pulse: 85 Resp: 18 Temp: 97.7 ??F (36.5 ??C) TempSrc: Skin SpO2: 100% Weight: 79.4 kg (175 lb) Height: 5' 3 (1.6 m) Physical Exam Vitals and nursing note reviewed. Constitutional: Appearance: Normal appearance. HENT: Head: Normocephalic and atraumatic. Right Ear: External ear normal. Left Ear: External ear normal. Mouth/Throat: Pharynx: Oropharynx is clear. Eyes: Conjunctiva/sclera: Conjunctivae normal. Cardiovascular: Rate and Rhythm: Normal rate and regular rhythm. Pulmonary: Effort: Pulmonary effort is normal. Breath sounds: Normal breath sounds. Abdominal: General: Bowel sounds are normal. Palpations: Abdomen is soft. Tenderness: There is no abdominal tenderness. There is no right CVA tenderness or left CVA tenderness. Musculoskeletal: Cervical back: Normal range of motion and neck supple. Comments: Normal ROM of the right elbow and wrist Skin: Capillary Refill: Capillary refill takes less than 2 seconds. Comments: There is a large area of erythema that is now on both the lower and upper right arm and has spread outside the borders marked on the right upper extremity. There is a pustular region of about 1-1/2 cm in diameter in the center of this erythema. No lymphangitic streaking noted. Neurological: Mental Status: She is alert and oriented to person, place, and time. Diagnostic Studies / Procedures ELECTROCARDIOGRAMS: No results found for this visit on 01/26/22. LABORATORY STUDIES: Results for orders placed or performed during the hospital encounter of 01/26/22 CBC W/DIFF AUTOMATED Result Value Ref Range WBC 7.0 4.4 - 11.0 x10'3/uL RBC 4.58 4.50 - 5.10 x10'6/uL HGB 12.6 12.3 - 15.3 G/DL HCT 38.8 35.9 - 44.6 % MCV 84.7 80.0 - 96.0 FL MCH 27.5 25.3 - 30.9 PG MCHC 32.5 31.0 - 34.1 G/DL RDW 13.6 12.4 - 15.1 % PLT 179 151 - 353 x10'3/uL MPV 13.2 (H) 9.6 - 12.0 FL RBC MORPHOLOGY NORMAL PLT MORPH. NORMAL WBC MORPHOLOGY NORMAL LYMPHOCYTES 32.4 15.8 - 45.0 % NEUTROPHILS 58.6 42.1 - 71.9 % MONOCYTES 7.1 5.7 - 12.5 % EOSINOPHILS 1.3 0.0 - 5.6 % BASOPHILS 0.3 0.0 - 1.3 % ABS. NEUTROPHILS 4.10 1.40 - 6.00 x10'3/uL IMMATURE GRANS 0.3 0.0 - 0.5 % ABS. LYMPHOCYTES 2.27 0.80 - 4.70 x10'3/uL COMPREHENSIVE METABOLIC PANEL Result Value Ref Range GLUCOSE 91 70 - 99 MG/DL BUN 16 7 - 18 MG/DL CREATININE S/P/B 0.74 0.55 - 1.02 MG/DL SODIUM 144 136 - 145 MMOL/L POTASSIUM 3.4 (L) 3.5 - 5.1 MMOL/L CHLORIDE S/P/B 105 100 - 108 MMOL/L CO2 27.1 21 - 32 MMOL/L CALCIUM 9.1 8.5 - 10.1 MG/DL BILIRUBIN TOTAL S/P/B 0.2 0.2 - 1.2 MG/DL TOTAL PROTEIN S/P/B 7.2 6.4 - 8.2 G/DL ALBUMIN S/P/B 3.9 3.4 - 5.0 G/DL AST 13 (L) 15 - 37 U/L ALT 22 14 - 55 U/L ALKALINE PHOSPHATASE S/P/B 69 50 - 136 U/L ANION GAP 11.9 5 - 15 MMOL/L BUN CREATININE RATIO 21.6 6 - 26 A/G RATIO 1.2 1.0 - 2.0 RATIO eGFR Non-Afr. Amer. >90 >90 ML/MIN/1.73 M2 eGFR Afr. Amer. >90 >90 ML/MIN/1.73 M2 LACTIC ACID Result Value Ref Range LACTIC ACID 1.2 0.4 - 2.0 MMOL/L TEST URINE Result Value Ref Range Specific [place] (U) 1.015 PREG TEST NEGATIVE NEGATIVE URINALYSIS, AUTO, COMPLETE Result Value Ref Range COLOR (U) YELLOW TRANSPARENCY CLEAR Specific [place] (U) 1.015 1.000 - 1.030 U PH 7.0 5.0 - 9.0 LEUKOCYTE ESTERASE NEGATIVE NEGATIVE NITRITES NEGATIVE NEGATIVE PROTEIN (U) NEGATIVE NEGATIVE URINE GLUCOSE NEGATIVE NEGATIVE U KETONES NEGATIVE NEGATIVE BILIRUBIN (U) NEGATIVE NEGATIVE BLOOD NEGATIVE NEGATIVE WBC/HPF 0-5 0 - 5 /HPF RBC/HPF 0-5 0 - 5 /HPF EPI/HPF FEW /HPF CULTURE & SENSITIVITY INDICATED? CULTURE IS NOT INDICATED IMAGING STUDIES No orders to display ED Course / Medical Decision Making MDM Number of Diagnoses or Management Options Cellulitis of right arm Diagnosis management comments: 21-year-old female presenting with cellulitis of the right upper extremity that has been treated with doxycycline and is now worsening and going outside of the borders drawn on Saturday by her primary care provider. I have started her on sepsis protocol with 30ml/kg IVfluid bolus and initiation of Zosyn and vancomycin for skin coverage. Her vital signs are stable. There is no leukocytosis. Lactic acid is normal at 1.2. However with rapid spread over the last fewhours that is extending far outside of the drawn borders her dominant arm while on doxycycline, I believe this patient would benefit from admission for IV antibiotics. Contacted Dr Chester via [facility] at [phone] and he has accepted the patient for admission. Patient understands the need for admission and is comfortable with this. ED Course as of Jan 26 250SatJan 26, [id number] WBC normal at 7.0 with Hgb of 12.6 CBC W/DIFF AUTOMATED(!) [GJ] 0227 Urine neg URINALYSIS, AUTO, COMPLETE [GJ] 226 Preg neg TEST URINE [GJ] 0237 Lactic acid normal at 1.2 LACTIC ACID [GJ] ED Course User Index [GJ] Luisana Gonzales MD Clinical Impression Cellulitis of right arm (Primary) Disposition: Admit Luisana Gonzales MD 01/26/22251 documented in this encounter Plan of Treatment Not on file documented as of this encounter Procedures Procedure Name Priority Date/Time Associated Diagnosis Comments BASIC METABOLIC PANEL Routine 01/28/2022 7:47 AM CDT C-REACTIVE PROTEIN Routine 01/28/2022 7: 47 AM CDT CBC W/DIFF AUTOMATED Routine 01/28/2022 7:47 AM CDT BASIC METABOLIC PANEL Routine 01/27/2022 10:12 AM CDT C-REACTIVE PROTEIN Routine 01/27/2022 10 :12 AM CDT CBC W/DIFF AUTOMATED Routine 01/27/2022 10:12 AM CDT MRSA SCREENING Routine 01/26/2022 3:28 PM CDT CULTURE, BACTERIA, BLOOD STAT 01/26/2022 2:26 AM CDT TEST URINE STAT 01/26/2022 2:05 AM CDT URINALYSIS, AUTO, COMPLETE STAT 01/26/2022 2:05 AM CDT COMPREHENSIVE METABOLIC PANEL STAT 01/26/2022 2:05 AM CDT LACTIC ACID STAT 01/26/2022 2:05 AM CDT C-REACTIVE PROTEIN Routine 01/26/2022 2: 05 AM CDT CULTURE, BACTERIA, BLOOD STAT 01/26/2022 2:05 AM CDT CBC W/DIFF AUTOMATED STAT 01/26/2022 2:05 AM CDT documented in this encounter Results * (ABNORMAL) BASIC METABOLIC PANEL (01/28/2022 7:47 AM CDT) [facility] GLUCOSE 108(H) 70 - 99 MG/DL 01/28/2022 8:31 AM CDT [facility] BUN 14 7 - 18 MG/DL 01/28/2022 8:31 AM CDT [facility] CREATININE S/P/B 0.60 0.55 - 1.02 MG/DL 01/28/2022 8:31 AM CDT [facility] SODIUM S/P/B 144 136 - 145 MMOL/L 01/28/2022 8:31 AM CDT [facility] POTASSIUM S/P/B 3.8 3.5 - 5.1 MMOL/L 01/28/2022 8:31 AM CDT [facility] CHLORIDE S/P/B 106 100 - 108 MMOL/L 01/28/2022 8:31 AM CDT [facility] CO2 25.6 21 - 32 MMOL/L 01/28/2022 8:31 AM CDT [facility] CALCIUM S/P/B 9.4 8.5 - 10.1 MG/DL 01/28/2022 8:31 AM CDT [facility] ANION GAP 12.4 5 - 15 MMOL/L 01/28/2022 8:31 AM CDT [facility] BUN CREATININE RATIO 23.3 6 - 26 01/28/2022 8:31 AM T [facility] EGFR NON-AFR. AMER. >90 >90 ML/MIN/1.7 3 M2 01/28/2022 8:31 AM CDT [facility] EGFR AFR. AMER. >90 >90 ML/MIN/1.7 3 M2 01/28/2022 8:31 AM CDT [facility] Comment: NOTE: eGFR is not calculated for patients <18 years of age. This is an estimated GFR (CKD EPI) and should not be used for calculating drug doses. 01/28/2022 7:47 AM CDT Nithin Jimbo Crawley PNEUMATIC SYSTEMS OPERATOR LABORATORY Final Result [facility] [address] [place] [address], * (ABNORMAL) CBC W/DIFF AUTOMATED (01/28/2022 7:47 AM CDT) WBC 9.2 4.4 - 11.0 x10'3/uL 01/28/2022 9:16 AM CDT [facility] RBC 4.66 4.50 - 5.10 x10'6/uL 01/28/2022 9:16 AM CDT [facility] HGB 12.9 12.3 - 15.3 G/DL 01/28/2022 9:16 AM CDT [facility] HCT 39.4 35.9 - 44.6 % 01/28/2022 9:16 AM CDT [facility] MCV 84.5 80.0 - 96.0 FL 01/28/2022 9:16 AM CDT [facility] MCH 27.7 25.3 - 30.9 PG 01/28/2022 9:16 AM CDT [facility] MCHC 32.7 31.0 - 34.1 G/DL 01/28/2022 9:16 AM CDT [facility] RDW 13.5 12.4 - 15.1 % 01/28/2022 9:16 AM T [facility] PLT 158 151 - 353 x10'3/uL 01/28/2022 9:16 AM T [facility] MPV 13.6(H) 9.6 - 12.0 FL 01/28/2022 9:16 AM T [facility] RBC MORPHOLOGY NORMAL 01/28/2022 9:16 AM T [facility] PLT MORPH. NORMAL 01/28/2022 9:16 AM T [facility] WBC MORPHOLOGY NORMAL 01/28/2022 9:16 AM CDT [facility] LYMPHOCYTES % 19.6 15.8 - 45.0 % 01/28/2022 9:16 AM CDT [facility] NEUTROPHILS % 74.2(H) 42.1 - 71.9 % 01/28/2022 9:16 AM CDT [facility] MONOCYTES % 5.5(L) 5.7 - 12.5 % 01/28/2022 9:16 AM CDT [facility] EOSINOPHILS 0.2 0.0 - 5.6 % 01/28/2022 9:16 AM CDT [facility] BASOPHILS 0.2 0.0 - 1.3 % 01/28/2022 9:16 AM CDT [facility] ABS. NEUTROPHILS 6.80(H) 1.40 - 6.00 x10'3/uL 01/28/2022 9:16 AM CDT [facility] IMMATURE GRANS % 0.3 0.0 - 0.5 % 01/28/2022 9:16 AM CDT [facility] ABS. LYMPHOCYTES 1.80 0.80 - 4.70 x10'3/uL 01/28/2022 9:16 AM CDT [facility] 01/28/2022 7:47 AM CDT Hector Crawley PNEUMATIC SYSTEMS OPERATOR LABORATORY Final Result [facility] [address] [place] [address], [place] [phone] * (ABNORMAL) C-REACTIVE PROTEIN (01/28/2022 7:47 AM CDT) C-REACTIVE PROTEIN 1.10(H) <0.9 mg/dL 01/28/2022 8:31 AM CDT [facility] 01/28/2022 7:47 AM CDT Hector Crawley PNEUMATIC SYSTEMS OPERATOR LABORATORY Final Result [facility] [address] [place] [address], [place] [phone] * (ABNORMAL) BASIC METABOLIC PANEL (01/27/2022 10:12 AM CDT) [facility] GLUCOSE 102(H) 70 - 99 MG/DL 01/27/2022 11:[address] [facility] BUN 10 7 - 18 MG/DL 01/27/2022 11:[address] [facility] CREATININE S/P/B 0.83 0.55 - 1.02 MG/DL 01/27/2022 11:[address] [facility] SODIUM S/P/B 139 136 - 145 MMOL/L 01/27/2022 11:[address] [facility] POTASSIUM S/P/B 4.3 3.5 - 5.1 MMOL/L 01/27/2022 11:[address] [facility] CHLORIDE S/P/B 105 100 - 108 MMOL/L 01/27/2022 11:[address] [facility] CO2 25.9 21 - 32 MMOL/L 01/27/2022 11:[address] [facility] CALCIUM S/P/B 9.0 8.5 - 10.1 MG/DL 01/27/2022 11:[address] [facility] ANION GAP 8.1 5 - 15 MMOL/L 01/27/2022 11:[address] [facility] BUN CREATININE RATIO 12.0 6 - 26 01/27/2022 11:[address] [facility] EGFR NON-AFR. AMER. >90 >90 ML/MIN/1.7 3 M2 01/27/2022 11:[address] [facility] EGFR AFR. AMER. >90 >90 ML/MIN/1.7 3 M2 01/27/2022 11:[address] [facility] Comment: NOTE: eGFR is not calculated for patients <18 years of age. This is an estimated GFR (CKD EPI) and should not be used for calculating drug doses. 01/27/2022 10:1 2 AM CDT Hector Choi Luis PNEUMATIC SYSTEMS OPERATOR LABORATORY Final Result [facility] [address] [place] [address], * (ABNORMAL) CBC W/DIFF AUTOMATED (01/27/2022 10:12 AM CDT) WBC 4.9 4.4 - 11.0 x10'3/uL 01/27/2022 10:35 AM CDT [facility] RBC 4.54 4.50 - 5.10 x10'6/uL 01/27/2022 10:35 AM CDT [facility] HGB 12.4 12.3 - 15.3 G/DL 01/27/2022 10:35 AM CDT [facility] HCT 38.6 35.9 - 44.6 % 01/27/2022 10:35 AM CDT [facility] MCV 85.0 80.0 - 96.0 FL 01/27/2022 10:35 AM CDT [facility] MCH 27.3 25.3 - 30.9 PG 01/27/2022 10:35 AM CDT [facility] MCHC 32.1 31.0 - 34.1 G/DL 01/27/2022 10:35 AM CDT [facility] RDW 13.8 12.4 - 15.1 % 01/27/2022 10:35 AM CDT [facility] PLT 140(L) 151 - 353 x10'3/uL 01/27/2022 10:35 AM CDT [facility] MPV 13.0(H) 9.6 - 12.0 FL 01/27/2022 10:35 AM CDT [facility] RBC MORPHOLOGY NORMAL 01/27/2022 10:35 AM CDT [facility] PLT MORPH. NORMAL 01/27/2022 10:35 AM CDT [facility] WBC MORPHOLOGY NORMAL 01/27/2022 10:35 AM CDT [facility] LYMPHOCYTES % 37.1 15.8 - 45.0 % 01/27/2022 10:35 AM CDT [facility] NEUTROPHILS % 51.5 42.1 - 71.9 % 01/27/2022 10:35 AM CDT [facility] MONOCYTES % 7.7 5.7 - 12.5 % 01/27/2022 10:35 AM CDT [facility] EOSINOPHILS 2.9 0.0 - 5.6 % 01/27/2022 10:35 AM CDT [facility] BASOPHILS 0.6 0.0 - 1.3 % 01/27/2022 10:35 AM CDT [facility] ABS. NEUTROPHILS 2.53 1.40 - 6.00 x10'3/uL 01/27/2022 10:35 AM CDT [facility] IMMATURE GRANS % 0.2 0.0 - 0.5 % 01/27/2022 10:35 AM CDT [facility] ABS. LYMPHOCYTES 1.82 0.80 - 4.70 x10'3/uL 01/27/2022 10:35 AM CDT [facility] 01/27/2022 10:1 2 AM CDT us Hector Crawley PNEUMATIC SYSTEMS OPERATOR LABORATORY Final Result [facility] [address] [place] [address], [place] [phone] * (ABNORMAL) C-REACTIVE PROTEIN (01/27/2022 10:12 AM CDT) C-REACTIVE PROTEIN 2.40(H) <0.9 mg/dL 01/27/2022 11:36 AM CDT [facility] 01/27/2022 10:1 2 AM CDT [facility] PNEUMATIC SYSTEMS OPERATOR LABORATORY Final Result Performing Organization Address [facility] Co de Phone Number [facility] [address] [place] [address], * MRSA SCREENING (01/26/2022 3:28 PM CDT) SPEC DESCRIPTION NASAL 01/26/2022 3:29 PM CDT [facility] SPECIAL REQUESTS NO SPECIAL REQUEST 01/26/2022 3:29 PM CDT [facility] CULTURE RESULT NO MRSA ISOLATED 01/27/2022 3:38 PM CDT [facility] [facility] SPEC[facility] FROM INTERNAL NOSE / Unknown 01/26/2022 3:28 PM CDT 01/26/2022 3:35 PM CDT Hector Crawley PNEUMATIC SYSTEMS OPERATOR MICROBIOLOGY - GENERAL ORDERAB LES Final Result Performing Organization Address City/[facility]/ZIP Co de Phone Number [facility] [address] [place] [address], [place] [phone] * CULTURE, BACTERIA, BLOOD (01/26/2022 2:26 AM CDT) SPEC DESCRIPTION BLOOD 01/26/2022 2:01 AM CDT [facility] SPECIAL REQUESTS NO SPECIAL REQUEST 01/26/2022 2:01 AM CDT [facility] CULTURE RESULT NO GROWTH 5 DAYS 01/31/2022 8:11 AM CDT [facility] BLOOD SPECIMEN OBTAINED FOR BLOOD CULTURE / Unknown 01/26/2022 2:26 AM CDT 01/26/2022 2:47 AM CDT Luisana Gonzales MD MICROBIOLOGY - GENERAL ORD ERABLES Final Result Performing Organization Address City/[facility]/ZIP Co de Phone Number [facility] [address] [place] [address], [place] [phone] [facility] [address] [place] [address], [place] [phone] * (ABNORMAL) C-REACTIVE PROTEIN (01/26/2022 2:05 AM CDT) C-REACTIVE PROTEIN 1.90(H) <0.9 mg/dL 01/26/2022 3:05 PM CDT [facility] 01/26/2022 2:05 AM CDT Hector Crawley APRN LABORATORY Final Result Performing Organization Address [facility] Co de Phone Number [facility] [address] [place] [address], [place] [phone] * LACTIC ACID (01/26/2022 2:05 AM CDT) LACTIC ACID VENOUS 1.2 0.4 - 2.0 MMOL/L 01/26/2022 2:36 AM CDT [facility] 01/26/2022 2:05 AM CDT Luisana Gonzales MD LABORATORY Final Resu lt Performing Organization Address City/[facility]/ZIP Co de Phone Number [facility] [address] [place] [address], [place] [phone] * URINALYSIS, AUTO, COMPLETE (01/26/2022 2:05 AM CDT) COLOR (U) YELLOW 01/26/2022 2:24 AM CDT [facility] TRANSPARENCY CLEAR 01/26/2022 2:24 AM CDT [facility] SPECIFIC GRAVITY (U) 1.015 1.000 - 1.030 01/26/2022 2:24 AM CDT [facility] U PH 7.0 5.0 - 9.0 01/26/2022 2:24 AM T [facility] LEUKOCYTES (U) NEGATIVE NEGATIVE 01/26/2022 2:24 AM CDT [facility] NITRITES NEGATIVE NEGATIVE 01/26/2022 2:24 AM T [facility] PROTEIN (U) NEGATIVE NEGATIVE 01/26/2022 2:24 AM CDT [facility] URINE GLUCOSE NEGATIVE NEGATIVE 01/26/2022 2:24 AM T [facility] KETONES MG/DL (U) NEGATIVE NEGATIVE 01/26/2022 2:24 AM T [facility] BILIRUBIN (U) NEGATIVE NEGATIVE 01/26/2022 2:24 AM T [facility] BLOOD (U) NEGATIVE NEGATIVE 01/26/2022 2:24 AM T [facility] WBC/HPF 0-5 0 - 5 /HPF 01/26/2022 2:24 AM T [facility] RBC/HPF 0-5 0 - 5 /HPF 01/26/2022 2:24 AM T [facility] EPI/HPF FEW /HPF 01/26/2022 2:24 AM CDT [facility] CULTURE & SENSITIVITY INDICATED? CULTURE IS NOT INDICATED 01/26/2022 2:24 AM CDT [facility] URINE SPECIMEN OBTAINED BY CLEAN CATCH PROCEDURE / Unknown 01/26/2022 2:05 AM CDT Luisana Gonzales MD URINE ORDERABLES Final Res ult Performing Organization Address [facility]/ZIP Co de Phone Number [facility] [address] [place] [address], [place] [phone] * TEST URINE (01/26/2022 2:05 AM CDT) SPECIFIC GRAVITY (U) 1.015 01/26/2022 2:22 AM CDT [facility] PREG TEST NEGATIVE NEGATIVE 01/26/2022 2:22 AM CDT [facility] URINE SPECIMEN OBTAINED BY CLEAN CATCH PROCEDURE / Unknown 01/26/2022 2:05 AM CDT Luisana Gonzales MD URINE ORDERABLES Final Res ult Performing Organization Address [facility] Co de Phone Number [facility] [address] [place] [address], [place] [phone] * CULTURE, BACTERIA, BLOOD (01/26/2022 2:05 AM CDT) SPEC DESCRIPTION BLOOD 01/26/2022 2:01 AM CDT [facility] SPECIAL REQUESTS NO SPECIAL REQUEST 01/26/2022 2:01 AM CDT [facility] CULTURE RESULT NO GROWTH 5 DAYS 01/31/2022 8:11 AM CDT [facility] BLOOD SPECIMEN OBTAINED FOR BLOOD CULTURE / Unknown 01/26/2022 2:05 AM CDT 01/26/2022 2:15 AM CDT [place] Luisana Gonzales MD MICROBIOLOGY - GENERAL ORD ERABLES Final Result [facility] [address] [place] [address], [place] [phone] [facility] [address] [facility] [place] [place] [address], [place] [phone] * (ABNORMAL) COMPREHENSIVE METABOLIC PANEL (01/26/2022 2:05 AM CDT) [facility] GLUCOSE 91 70 - 99 MG/DL 01/26/2022 2:32 AM CDT [facility] BUN 16 7 - 18 MG/DL 01/26/2022 2:32 AM CDT [facility] CREATININE S/P/B 0.74 0.55 - 1.02 MG/DL 01/26/2022 2:32 AM CDT [facility] SODIUM S/P/B 144 136 - 145 MMOL/L 01/26/2022 2:32 AM CDT [facility] POTASSIUM S/P/B 3.4(L) 3.5 - 5.1 MMOL/L 01/26/2022 2:32 AM CDT [facility] CHLORIDE S/P/B 105 100 - 108 MMOL/L 01/26/2022 2:32 AM CDT [facility] CO2 27.1 21 - 32 MMOL/L 01/26/2022 2:32 AM CDT [facility] CALCIUM S/P/B 9.1 8.5 - 10.1 MG/DL 01/26/2022 2:32 AM CDT [facility] BILIRUBIN TOTAL S/P/B 0.2 0.2 - 1.2 MG/DL 01/26/2022 2:32 AM CDT [facility] TOTAL PROTEIN S/P/B 7.2 6.4 - 8.2 G/DL 01/26/2022 2:32 AM T [facility] ALBUMIN S/P/B 3.9 3.4 - 5.0 G/DL 01/26/2022 2:32 AM T [facility] AST 13(L) 15 - 37 U/L 01/26/2022 2:32 AM T [facility] ALT 22 14 - 55 U/L 01/26/2022 2:32 AM T [facility] ALKALINE PHOSPHATASE S/P/B 69 50 - 136 U/L 01/26/2022 2:32 AM T [facility] ANION GAP 11.9 5 - 15 MMOL/L 01/26/2022 2:32 AM T [facility] BUN CREATININE RATIO 21.6 6 - 26 01/26/2022 2:32 AM T [facility] A/G RATIO 1.2 1.0 - 2.0 RATIO 01/26/2022 2:32 AM T [facility] EGFR NON-AFR. AMER. >90 >90 ML/MIN/1.7 3 M2 01/26/2022 2:32 AM T [facility] EGFR AFR. AMER. >90 >90 ML/MIN/1.7 3 M2 01/26/2022 2:32 AM T [facility] Comment: NOTE: eGFR is not calculated for patients <18 years of age. This is an estimated GFR (CKD EPI) and should not be used for calculating drug doses. 01/26/2022 2:05 AM CDT us Luisana Gonzales MD LABORATORY Final Resu lt [facility] [address] [place] [address], [place] [phone] * (ABNORMAL) CBC W/DIFF AUTOMATED (01/26/2022 2:05 AM CDT) [facility] WBC 7.0 4.4 - 11.0 x10'3/uL 01/26/2022 2:20 AM CDT [facility] RBC 4.58 4.50 - 5.10 x10'6/uL 01/26/2022 2:20 AM CDT [facility] HGB 12.6 12.3 - 15.3 G/DL 01/26/2022 2:20 AM CDT [facility] HCT 38.8 35.9 - 44.6 % 01/26/2022 2:20 AM CDT [facility] MCV 84.7 80.0 - 96.0 FL 01/26/2022 2:20 AM CDT [facility] MCH 27.5 25.3 - 30.9 PG 01/26/2022 2:20 AM CDT [facility] MCHC 32.5 31.0 - 34.1 G/DL 01/26/2022 2:20 AM CDT [facility] RDW 13.6 12.4 - 15.1 % 01/26/2022 2:20 AM CDT [facility] PLT 179 151 - 353 x10'3/uL 01/26/2022 2:20 AM CDT [facility] MPV 13.2(H) 9.6 - 12.0 FL 01/26/2022 2:20 AM CDT [facility] RBC MORPHOLOGY NORMAL 01/26/2022 2:20 AM CDT [facility] PLT MORPH. NORMAL 01/26/2022 2:20 AM CDT [facility] WBC MORPHOLOGY NORMAL 01/26/2022 2:20 AM CDT [facility] LYMPHOCYTES % 32.4 15.8 - 45.0 % 01/26/2022 2:20 AM CDT [facility] NEUTROPHILS % 58.6 42.1 - 71.9 % 01/26/2022 2:20 AM CDT [facility] MONOCYTES % 7.1 5.7 - 12.5 % 01/26/2022 2:20 AM CDT [facility] EOSINOPHILS 1.3 0.0 - 5.6 % 01/26/2022 2:20 AM CDT [facility] BASOPHILS 0.3 0.0 - 1.3 % 01/26/2022 2:20 AM CDT [facility] ABS. NEUTROPHILS 4.10 1.40 - 6.00 x10'3/uL 01/26/2022 2:20 AM CDT [facility] IMMATURE GRANS % 0.3 0.0 - 0.5 % 01/26/2022 2:20 AM CDT [facility] ABS. LYMPHOCYTES 2.27 0.80 - 4.70 x10'3/uL 01/26/2022 2:20 AM CDT [facility] 01/26/2022 2:05 AM CDT us Luisana Gonzales MD LABORATORY Final Resu lt [facility] [address] [place] [address], documented in this encounter Visit Diagnoses Diagnosis Cellulitis- Primary Cellulitis and abscess of unspecified site Cellulitis of right arm Cellulitis and abscess of upper arm and forearm documented in this encounter Admitting Diagnoses Diagnosis Cellulitis Cellulitis and abscess of unspecified site documented in this encounter Administered Medications Inactive Administered Medications - up to 3 most recent administrations Medication Order MAR Action Action Date Dose Rate Site acetaminophen (TYLENOL) tablet 650 mg 650 mg, Oral, Every 4 hours PRN, Mild pain (Scale 1 - 3), Fever, Starting on Sat01/26/22 at 0407, Until Sat01/28/22 at 1620, Maximum dose of acetaminophen is 4000 mg from all sources in 24 hours. Given 01/27/2022 6:19 PM CDT 650 mg acidophilus (FLORAJEN) capsule 1 capsule 1 capsule, Oral, Daily, First dose on Sat01/26/22 at 1130, Until Discontinued Given 01/28/2022 8:33 AM CDT 1 capsule Given 01/27/2022 10:21 AM CDT 1 capsule Given 01/26/2022 12:41 PM CDT 1 capsule ceFAZolin (ANCEF) 2 g in sterile water 20 mL IV 2 g, Intravenous, at 240 mL/hr, Every 8 hours, First dose on Sat01/26/22 at 0445, Until Discontinued Given 01/28/2022 11:48 AM CDT 2 g 240 m L/hr Given 01/28/2022 4:15 AM CDT 2 g 240 mL/hr Given 01/27/2022 8:28 PM CDT 2 g 240 mL/hr diphenhydrAMINE (BENADRYL) capsule 25 mg 25 mg, Oral, Every 6 hours PRN, Itching, Allergies, Starting on Sat01/26/22 at 1942, Until Sat01/28/22 at 1620 Given 01/26/2022 8:44 PM CDT 25 mg enoxaparin (LOVENOX) 40 MG/0.4ML syringe 40 mg 40 mg, Subcutaneous, Every 24 hours, First dose on Sat01/26/22 at 1445, Until Discontinued, Administer by deep SubQ injection alternating between the left or right anterolateral and left or right posterolateral abdominal wall. Given 01/27/2022 3:44 PM CDT 40 mg Right Lower Abdomen Given 01/26/2022 3:18 PM CDT 40 mg Ri ght Lower Abdomen fluconazole (DIFLUCAN) tablet 200 mg 200 mg, Oral, Once, 1 dose, On Sat01/28/22 at 1000 Given 01/28/2022 10:33 AM CDT 200 mg melatonin tablet 6 mg 6 mg, Oral, Nightly PRN, sleep, Starting on Sat01/26/22 at 1942, Until 01/28/22 at 1620 Given 01/27/2022 8:25 PM CDT 6 mg morphine injection 2 mg 2 mg, Intravenous, Once, 1 dose, On Sat01/26/22 at 0215 Given 01/26/2022 2:18 AM CDT 2 mg ondansetron (ZOFRAN) injection 4 mg 4 mg, Intravenous, Once, 1 dose, On Sat01/26/22 at 0215, IV push over 2-5 minutes. Given 01/26/2022 2:18 AM CDT 4 mg ondansetron (ZOFRAN) injection 4 mg 4 mg, Intravenous, Every 8 hours PRN, Nausea, Vomiting, Starting on Sat01/26/22 at 0407, Until Sat01/28/22 at 1620, IV push over 2-5 minutes. Given 01/26/2022 7:46 PM CDT 4 mg piperacillin-tazobactam (ZOSYN) 4.5 g in sodium chloride 0.9 % 100 mL IVPB 4.5 g, Intravenous, Administer over 30 Minutes, Once, 1 dose, On Sat01/26/22 at 0215 New Bag 01/26/2022 2:24 AM CDT 4.5 g 200 mL/hr potassium chloride CR (KLOR-CON M) tablet 40 mEq 40 mEq, Oral, Once, 1 dose, On Sat01/26/22 at 1300, Do not chew, crush, or suck on tablet. May break in half. May dissolve whole tablet in 120 mL of water and drink immediately. Given 01/26/2022 12:49 PM CDT 40 mEq predniSONE (DELTASONE) tablet 20 mg 20 mg, Oral, Daily, First dose on 01/27/22 at 1400, Until Discontinued Given 01/28/2022 8:33 AM CDT 20 mg Given 01/27/2022 3:43 PM CDT 20 mg sodium chloride 0.9% bolus infusion SOLN 1,000 mL 1,000 mL, Intravenous, Administer over 30 Minutes, Once, 1 dose, On Sat01/26/22 at 0215 New Bag 01/26/2022 2:17 AM CDT 1,000 mLs sodium chloride 0.9% bolus infusion SOLN 1,000 mL 1,000 mL, Intravenous, Administer over 30 Minutes, Once, 1 dose, On Sat01/26/22 at 0245 New Bag 01/26/2022 2:55 AM CDT 1,000 mLs sodium chloride 0.9% bolus infusion SOLN 500 mL 500 mL, Intravenous, Administer over 30 Minutes, Once, 1 dose, On Sat01/26/22 at 0315, RN to infuse total volume of 2381 mL (30 ml/kg in Actual Body Weight) including prior to arrival and / or prediagnosis fluids. New Bag 01/26/2022 4:09 AM CDT 500 mLs vancomycin (VANCOCIN) 2,000 mg in sodium chloride 0.9 % 500 mL IVPB 2,000 mg, Intravenous, at 260 mL/hr, Once, 1 dose, On Sat01/26/22 at 0215, PHARMACY TO DOSE based on patient's weight. Administer LAST for combination regimen. New Bag 01/26/2022 2:58 AM CDT 2,000 mg 260 mL/hr documented in this encounter Active and Recently Administered Medications Times are shown in CDT. Scheduled Medication Order 01/26/2022 01/27/2022 01/28/2022 acidophilus (FLORAJEN) capsule 1 capsule 1 capsule, Oral, Daily, First dose on Sat01/26/22 at 1130, Until Discontinued 1241 (Given - Provider: Angela Darby RN) 1021 (Given - Provider: Anabelle Denis, LANDON) 0833 (Given - Provider: Montse Botello, LANDON) ceFAZolin (ANCEF) 2 g in sterile water 20 mL IV 2 g, Intravenous, at 240 mL/hr, Every 8 hours, First dose on Sat01/26/22 at 0445, Until Discontinued 0449 (Given - Provider: Taylor Lo RN)1241 (Given - Provider: Angela Darby RN)2040 (Given - Provider: Kelly Mendiola, LANDON) 0420 (Given - Provider: Kelly Mendiola, LANDON)1307 (Given - Provider: Anabelle Denis, LANDON)2028 (Given - Provider: Kelly Mendiola, RN) 0415 (Given - Provider: Kelly Mendiola, RN)1148 (Given - Provider: Montse Botello RN) enoxaparin (LOVENOX) 40 MG/0.4ML syringe 40 mg(Linked Group 1) 40 mg, Subcutaneous, Every 24 hours, First dose on Sat01/26/22 at 1445, Until Discontinued, Administer by deep SubQ injection alternating between the left or right anterolateral and left or right posterolateral abdominal wall. 1518 (Given - Provider: Angela Darby RN) 1544 (Given - Provider: Anabelle Denis, LANDON) 1445 (Canceled Entry - Provider: Automatic Discharge Provider - Comment: Automatically canceled at discontinue of medication order) fluconazole (DIFLUCAN) tablet 200 mg (COMPLETED) 200 mg, Oral, Once, 1 dose, On Sat01/28/22 at 1000 1033 (Given - Provider: Montse Botello RN) morphine injection 2 mg (COMPLETED) 2 mg, Intravenous, Once, 1 dose, On Sat01/26/22 at 0215 0218 (Given - Provider: Tena Messina RN) ondansetron (ZOFRAN) injection 4 mg (COMPLETED) 4 mg, Intravenous, Once, 1 dose, On Sat01/26/22 at 0215, IV push over 2-5 minutes. 0218 (Given - Provider: Tena Messina RN) piperacillin-tazobactam (ZOSYN) 4.5 g in sodium chloride 0.9 % 100 mL IVPB (COMPLETED) 4.5 g, Intravenous, Administer over 30 Minutes, Once, 1 dose, On Sat01/26/22 at 0215 0224 (New Bag - Provider: Tena Messina RN)0258 (Infusion Stop Time - Provider: Tena Messina RN) potassium chloride CR (KLOR-CON M) tablet 40 mEq (COMPLETED) 40 mEq, Oral, Once, 1 dose, On Sat01/26/22 at 1300, Do not chew, crush, or suck on tablet. May break in half. May dissolve whole tablet in 120 mL of water and drink immediately. 1249 (Given - Provider: Angela Darby RN) predniSONE (DELTASONE) tablet 20 mg 20 mg, Oral, Daily, First dose on Sat01/27/22 at 1400, Until Discontinued 1543 (Given - Provider: Anabelle Denis RN) 0833 (Given - Provider: Montse Botello RN) sodium chloride 0.9% bolus infusion SOLN 1,000 mL (COMPLETED)(Linked Group 2) 1,000 mL, Intravenous, Administer over 30 Minutes, Once, 1 dose, On Sat01/26/22 at 0215 0217 (New Bag - Provider: Tena Messina RN)0258 (Infusion Stop Time - Provider: Tena Messina RN) sodium chloride 0.9% bolus infusion SOLN 1,000 mL (COMPLETED)(Linked Group 2) 1,000 mL, Intravenous, Administer over 30 Minutes, Once, 1 dose, On Sat01/26/22 at 0245 0255 (New Bag - Provider: Tena Messina RN)0350 (Infusion Stop Time - Provider: Taylor Lo RN) sodium chloride 0.9% bolus infusion SOLN 500 mL (COMPLETED)(Linked Group 2) 500 mL, Intravenous, Administer over 30 Minutes, Once, 1 dose, On Sat01/26/22 at 0315, RN to infuse total volume of 2381 mL (30 ml/kg in Actual Body Weight) including prior to arrival and / or prediagnosis fluids. 0409 (New Bag - Provider: Taylor Lo RN)0502 (Infusion Stop Time - Provider: Taylor Lo RN) vancomycin (VANCOCIN) 2,000 mg in sodium chloride 0.9 % 500 mL IVPB (CANCELED) 2,000 mg, Intravenous, at 260 mL/hr, Once, 1 dose, On Sat01/26/22 at 0215, PHARMACY TO DOSE based on patient's weight. Administer LAST for combination regimen. 025 (New Bag - Provider: Tena Messina RN)0408 (Infusion Stop Time - Provider: Taylor Lo RN) PRN Medication Order 01/26/2022 01/27/2022 01/28/2022 acetaminophen (TYLENOL) tablet 650 mg 650 mg, Oral, Every 4 hours PRN, Mild pain (Scale 1 - 3), Fever, Starting on Sat01/26/22 at 0407, Until 01/28/22 at 1620, Maximum dose of acetaminophen is 4000 mg from all sources in 24 hours. 181 (Given - Provider: Anabelle Deins RN) diphenhydrAMINE (BENADRYL) capsule 25 mg 25 mg, Oral, Every 6 hours PRN, Itching, Allergies, Starting on Sat01/26/22 at 1942, Until Sat01/28/22 at 1620 2043 (Given - Provider: Kelly Mendiola, LANDON) melatonin tablet 6 mg 6 mg, Oral, Nightly PRN, sleep, Starting on Sat01/26/22 at 1942, Until Sat01/28/22 at 1620 2024 (Given - Provider: Kelly Mendiola, RN) ondansetron (ZOFRAN) injection 4 mg 4 mg, Intravenous, Every 8 hours PRN, Nausea, Vomiting, Starting on Sat01/26/22 at 0407, Until Sat01/28/22 at 1620, IV push over 2-5 minutes. 1945 (Given - Provider: Kelly Mendiola, LANDON) Linked Groups Order Group 1: enoxaparin (LOVENOX) 40 MG/0.4ML syringe 40 mgJump to med 40 mg, Subcutaneous, Every 24 hours, First dose on Sat01/26/22 at 1445, Until Discontinued, Administer by deep SubQ injection alternating between the left or right anterolateral and left or right posterolateral abdominal wall. And Moderate Risk for VTE (COMPLETED) Group 2: sodium chloride 0.9% bolus infusion SOLN 1,000 mL (COMPLETED)Jump to med 1,000 mL, Intravenous, Administer over 30 Minutes, Once, 1 dose, On Sat01/26/22 at 0215 Followed by sodium chloride 0.9% bolus infusion SOLN 1,000 mL (COMPLETED)Jump to med 1,000 mL, Intravenous, Administer over 30 Minutes, Once, 1 dose, On Sat01/26/22 at 0245 Followed by sodium chloride 0.9% bolus infusion SOLN 500 mL (COMPLETED)Jump to med 500 mL, Intravenous, Administer over 30 Minutes, Once, 1 dose, On Sat01/26/22 at 0315, RN to infuse total volume of 2381 mL (30 ml/kg in Actual Body Weight) including prior to arrival and / or prediagnosis fluids. documented in this encounter Care Teams Issuing Operator Relationship Specialty Start Date End Date Wil Colbert NP [address] [place] [id number] PCP - General NURSE PRACTITIONER 05/06/21 10/07/22 documented as of this encounter
--- OUTSIDE RECORDS SUMMARY | 2024-11-14 19:16 | XMS_ITS | Encounter Summary ---
Author Organization [facility] Address [address] [place] [address]. [place], [place] [id number] [place] [address] Care Team Providers Care Lard Mixer Name Role Phone Fiona Parkinson MD Primary Care Pr ovider Unavailable Encounter Details Date Type Department Care Team (Latest Contact Info) Description 11/19/2022 Travel Social History Tobacco Use Types Packs/Day [...] suspected to have Coronavirus/COVID-19? No / Unsure 11/19/2022 3:27 PM GAS TENDER documented as of this encounter Functional Status [...] Depression Total Score: 14 022 1:17 PM GAS TENDER documented as of this encounter Care Teams Lard Mixer Relationship Specialty Start Date End Date Fiona Parkinson MD PCP - General FAMILY PRACTICE 10/08/22 04/14/23 documented as of this encounter
--- OUTSIDE RECORDS SUMMARY | 2024-11-14 19:16 | XMS_ITS | Encounter Summary ---
Author Organization [facility] Address [address] [place] [address]. [place], [place] [address] [place] [address] Care Team Providers Care Senior Marketing Coordinator Name Role Phone Cortney Colbert NP Primary Care Provider Encounter Details Date Type Department Care Team (Latest Contact Info) Description 05/28/2022 Travel Social History Tobacco Use Types Packs/Day [...] suspected to have Coronavirus/COVID-19? No / Unsure 05/28/2022 8:58 PM CDT documented as of this encounter Functional [...] on filedocumented in this encounter Care Teams Senior Marketing Coordinator Relationship Specialty Start Date End Date Cortney Colbert NP [address] [place] [address] PCP - General NURSE PRACTITIONER 05/06/21 10/07/22 documented as of this encounter
--- OUTSIDE RECORDS SUMMARY | 2024-11-14 19:16 | XMS_ITS | Encounter Summary ---
Author Organization [facility] Address [address] [place] [address]. [place], [place] [id number] [place] [id number] Care Team Providers Care Office Automation Clerk Name Role Phone Cortney Colbert NP Primary Care Provider [phone] Encounter Details Date Type Department Care Team (Latest Contact Info) Description 01/26/2022 Travel Social History Tobacco Use Types Packs/Day [...] as of this encounter Functional Status * Question Answer [...] on filedocumented in this encounter Care Teams Office Automation Clerk Relationship Specialty Start Date End Date Cortney Colbert NP [address] [place] [address] PCP - General NURSE PRACTITIONER 05/06/21 10/07/22 documented as of this encounter
--- OUTSIDE RECORDS SUMMARY | 2024-11-14 19:16 | XMS_ITS | Encounter Summary ---
Author Organization [facility] Address [address] [place] [address]. [place], [place] [id number] [place] [id number] Care Team Providers Care Shuttle Fitting Supervisor Name Role Phone Fiona Parkinson MD Primary Care Pr ovider Unavailable Reason for Visit * Reason Comments Rib Pain Encounter Details Date Type Department Care Team (Late st Contact Info) Description 10/23/2022 2:41 AM SSRS REPORT DEVELOPER - 10/23/2022 5:03 AM SSRS REPORT DEVELOPER Emergency [facility] [place] [address] Kalyan Taylor, CLIENT DIRECTOR [address] [place] [phone] Ayan Garcia MD,PHD [address] [place], [place] [id number] Rib Pain Discharge Disposition: Home or Self Care [...] Recorded In the last 10 days, have benji ramires been in contact with someone who was confirmed or suspected to have Coronavirus/COVID-19? No / Unsure 10/23/2022 12:25 AM SSRS REPORT DEVELOPER documented as of this encounter Last Filed Vital Signs Vital Sign Reading Time Taken Comments Blood Pressure 112/87 10/23/2022 5:02 AM SSRS REPORT DEVELOPER Pulse 68 10/23/2022 5:02 AM SSRS REPORT DEVELOPER Temperature 36.9 ??C (98.4 ??F) 10/23/2022 12:[address] Respiratory Rate 16 10/23/2022 5:02 AM SSRS REPORT DEVELOPER Oxygen Saturation 99% 10/23/2022 5:02 AM SSRS REPORT DEVELOPER Inhaled Oxygen Concentration - - Weight 79.5 kg (175 lb 4.3 oz) 10/23/2022 12:26 AM SSRS REPORT DEVELOPER Height 160 cm (5' 3 ) 10/23/2022 12:26 AM SSRS REPORT DEVELOPER Body Mass Index 31.05 10/23/2022 12:26 AM SSRS REPORT DEVELOPER documented in this encounter Functional Status * [...] this encounter Discharge Instructions * Discharge Instructions* Ayan Garcia MD,PHD - 10/23/2022 4:40 AM SSRS REPORT DEVELOPER Perform the stretches a minimum of three times daily. You may use the muscle relaxer prior to the stretches Try the meloxicam instead of the diclofenac. Do not take both in the same day. REPORT DEVELOPER REPORT DEVELOPER * Attachments The following attachments cannot be sent through Care Everywhere. * PECTORALIS MINOR STRETCH (ESTONIAN) * PECTORAL STRETCH (ESTONIAN) documented in this encounter Medications at Time of Discharge albuterol sulfate HFA 108 (90 Base) MCG/ACT inhaler 10/06/2022 4 buPROPion SR (WELLBUTRIN SR) 150 MG 12 hr tabletIndications:So cial anxiety disorder,Moderate episode of recurrent major depressive disorder (CMS/HCC HHS/HCC) Take 1 tablet every morning x 3 days, then increase to 1 tablet twice a day 60 tablet 2 10/08/2022 3 cyclobenzaprine (FLEXERIL) 5 MG tablet Take 1 tablet (5 mg total) by mouth 3 (three) times daily as needed for Muscle Spasms. 30 tablet 10/23/2022 2 diclofenac EC (VOLTAREN) 50 MG tabletIndications:Ch est wall pain,Allodynia Take 1 tablet (50 mg total) by mouth 3 (three) times daily. 30 tablet 10/15/2022 3 gabapentin (NEURONTIN) 100 MG capsuleIndications:C hest wall pain,Allodynia Take 1 capsule (100 mg total) by mouth nightly. 30 capsule 10/15/2022 3 lidocaine (LIDODERM) 5 % Place 1 patch onto the skin daily for 30 days. Remove & Discard patch within 12 hours or as directed by 30 patch 10/23/2022 3 meloxicam (MOBIC) 15 MG tablet Take 1 tablet (15 mg total) by mouth daily for 7 days. 7 tablet 10/23/2022 2 methylPREDNISolone, GHADA, (MEDROL DOSEPAK) 4 MG tablet [...] as of this encounter ED Notes * Jennifer Brenner RN - 10/23/2022 5:01 AM CST Provider discussed today's findings with the patient/family. The patient has been given informationregarding their treatment, follow up and concerning symptoms for which they should seek urgent or emergent attention. I have expressed the the importance of seeking attention should there be any new,or worsening symptoms or persistence of their condition. Patient verbalized understanding of the discharge instructions. REPORT DEVELOPER * Ayan Garcia MD,PHD - 10/23/2022 2:14 AM CST EMERGENCY DEPARTMENT ENCOUNTER Chief Complaint Chief Complaint Patient presents with ??? Rib Pain History of Present Illness 21-year-old female presenting to the emergency department with a chief complaint of chest pain. It is worse with movement, pressure to the area, or heavy lifting. Patient is currently taking diclofenac and steroids. She states it is difficult for because she cannot lift heavy objects due to this pain. Medical History ALLERGIES: Allergies Allergen Reactions ??? Sulfa Antibiotics Hives ??? Vancomycin Infusion Reaction Fever, chills ??? Clindamycin Hives MEDICATIONS: Prior to Admission medications Medication Sig Start Date End Date Taking? Authorizing Provider cyclobenzaprine (FLEXERIL) 5 MG tablet Take 1 tablet (5 mg total) by mouth 3 (three) times daily asneeded for Muscle Spasms. 10/23/22 11/02/22 Yes Ayan Garcia MD,PHD lidocaine (LIDODERM) 5 % Place 1 patch onto the skin daily for 30 days. Remove & Discard patch within 12 hours or as directed by 10/23/22 11/22/22 Yes Ayan Garcia MD,PHD meloxicam (MOBIC) 15 MG tablet Take 1 tablet (15 mg total) by mouth daily for 7 days. 10/23/22 10/30/22 Yes Ayan Garcia MD,PHD albuterol sulfate HFA 108 (90 Base) MCG/ACT inhaler 10/06/22 GENERICPROVIDER, DEFAULT HISTORY buPROPion SR (WELLBUTRIN SR) 150 MG 12 hr tablet Take 1 tablet every morning x 3 days, then increase to 1 tablet twice a day 10/08/22 Fiona Parkinson MD diclofenac EC (VOLTAREN) 50 MG tablet Take 1 tablet (50 mg total) by mouth 3 (three) times daily. 10/15/22 Fiona Parkinson MD gabapentin (NEURONTIN) 100 MG capsule Take 1 capsule (100 mg total) by mouth nightly. 10/15/22 Fiona Parkinson MD methylPREDNISolone, GHDAA, (MEDROL DOSEPAK) 4 MG tablet Take 0.5 tablets (2 mg total) by mouth daily.6 TABLETS ON DAY ONE, 5 TABLETS DAY TWO, 4 TABLETS DAY THREE, 3 TABLETS DAY FOUR, 2 TABLETS DAY FIVE, AND 1 TABLET DAY SIX 10/20/22 Sharon Keane MD ondansetron (ZOFRAN-ODT) 4 MG disintegrating tablet 1 tablet every 4-6 hours as needed for nausea/vomiting 10/15/22 Fiona Parkinson MD propranolol (INDERAL) 10 MG tablet Take 1 tablet (10 mg total) by mouth 2 (two) times daily. 10/08/22 Fiona Parkinson MD PAST MEDICAL HISTORY: Past Medical History: Diagnosis Date ??? Depression 2017 ??? Misophonia 2014 PAST SURGICAL HISTORY: Past [...] per week Types: Marijuana Review of Systems Constitutional: Negative for chills and fever. Respiratory: Negative for cough and shortness of breath. Cardiovascular: See HPI Gastrointestinal: Negative for abdominal pain, Negative for nausea or vomiting Neurological: Negative for paraesthesias, negative for focal weakness, negative for headache Musculoskeletal: See HPI Ten systems reviewed and are negative except as in HPI and as noted above Physical Exam Filed Vitals: 10/23/22 0026 BP: 123/87 Pulse: 79 Resp: 18 Temp: 98.4 ??F (36.9 ??C) TempSrc: Temporal SpO2: 99% Weight: 79.5 kg (175 lb 4.3 oz) Height: 5' 3 (1.6 m) CONSTITUTIONAL: Patient is awake, alert, in no acute distress, conversant HEAD AND FACE: Normocephalic, atraumatic EYES: Normal sclera, extraocular motions grossly normal NECK: Supple, no obvious asymmetry CHEST: Performed with female nurse assistant chief nursing officer present and assisting, no skin changes to the chest, no rash, tenderness to palpation just inferior to the left breast, pain is additionally reproduced with movement of the left arm, especially lifting CARDIOVASCULAR: RRR, normal S1-S2, no clicks murmurs rubs or gallops are appreciated RESPIRATORY: No respiratory distress or tachypnea, clear to auscultation bilaterally without rales,rhonchi, wheezes ABDOMEN: Soft, nontender, nondistended, NEUROLOGIC: GCS 15, CN2-12 grossly intact, moves all extremities EXTREMITIES: Warm, no edema Diagnostic Studies / Procedures ELECTROCARDIOGRAMS: EKG, TIME 305 Rate 65, normal sinus rhythm, no ectopy, normal intervals, normal axis, no concordant ST elevations Interpretation by me: no acute ischemic changes LABORATORY STUDIES: Results for orders placed or performed during the hospital encounter of 10/23/22 CBC W/DIFF AUTOMATED Result Value Ref Range WBC 12.4 (H) 4.5 - 11.0 x10'3/uL RBC 4.61 4.20 - 5.40 x10'6/uL HGB 12.6 12.0 - 16.0 G/DL HCT 39.8 38.0 - 48.0 % MCV 86.3 81.0 - 99.0 FL MCH 27.3 27.0 - 31.0 PG MCHC 31.7 (L) 32.0 - 36.0 G/DL RDW 14.8 (H) 11.5 - 14.5 % PLT 194 130 - 400 x10'3/uL MPV 13.1 (H) 9.3 - 12.2 FL DIFFERENTIAL TYPE AUTOMATED DIFFERENTIAL NEUTROPHILS 85.2 % LYMPHOCYTES 10.3 % MONOCYTES 3.6 % EOSINOPHILS 0.1 % BASOPHILS 0.4 % IMMATURE GRANS 0.4 % ABS. NEUTROPHILS TOTAL 10.56 (H) 1.80 - 7.70 x10'3/uL ABS. LYMPHOCYTES 1.27 1.00 - 4.80 x10'3/uL ABS. MONOCYTES 0.44 0.24 - 0.86 x10'3/uL ABS. EOSINOPHILS 0.01 (L) 0.04 - 0.36 x10'3/uL ABS. BASOPHILS 0.05 0.01 - 0.08 x10'3/uL ABS. IMMATURE GRANULOCYTES 0.05 0.00 - 0.49 x10'3/uL COMPREHENSIVE METABOLIC PANEL Result Value Ref Range GLUCOSE 103 (H) 70 - 99 MG/DL BUN 21 (H) 7 - 18 MG/DL CREATININE S/P/B 0.77 0.55 - 1.02 MG/DL SODIUM 139 136 - 145 MMOL/L POTASSIUM 4.4 3.5 - 5.1 MMOL/L CHLORIDE S/P/B 108 100 - 108 MMOL/L CO2 26.1 21 - 32 MMOL/L CALCIUM 9.0 8.5 - 10.1 MG/DL BILIRUBIN TOTAL S/P/B 0.3 0.2 - 1.2 MG/DL TOTAL PROTEIN S/P/B 7.2 6.4 - 8.2 G/DL ALBUMIN S/P/B 3.7 3.4 - 5.0 G/DL AST 14 (L) 15 - 37 U/L ALT 22 14 - 55 U/L ALKALINE PHOSPHATASE S/P/B 64 50 - 136 U/L ANION GAP 4.9 (L) 5 - 15 MMOL/L BUN CREATININE RATIO 27.4 (H) 6 - 26 A/G RATIO 1.1 1.0 - 2.0 RATIO GFR ESTIMATE >90 >90 ML/MIN/1.73 M2 TROPONIN, QUANT Result Value Ref Range TROPONIN I HIGH SENSITIVITY <3 <54 ng/L IMAGING STUDIES XR RIBS LT+PA CHEST Final Result by User, [id number] (10/23 101) Examination: 4 views left ribs with PA Chest Exam Date/Time: 10/23/2022 12:41 AM Reason For Exam: pain Pain in the left breast radiates to the back for one week. Comparison: Chest radiograph 10/13/2022 Technique: 4 views of the left ribs were obtained. PA view of chest obtained as well. Findings: Heart size normal. Pulmonary vascularity within normal limits. No large effusion or pneumothorax. No focal infiltrates or consolidations. Pulmonary vascularity within normal limits. No acute rib fracture. No destructive osseous lesions. IMPRESSION: 1. No acute cardiopulmonary findings. 2. No acute rib fracture. Referred By: Interpreted By: Torsten Mckeon MD, 10/23/2022 12:57 AM ED Course / Medical Decision Making Patient presenting with a chief complaint of chest pain. On physical examination, the pain is musculoskeletal in nature. I reviewed the patient's labs, which are unremarkable, as above I reviewed the radiologist's interpretation of the patient's radiologic diagnostics (chest x-ray), which is unremarkable, as above I reviewed the patient's EKG, as above, combined with a high-sensitivity troponin rules out acute coronary syndrome in the setting of several days of symptoms I reviewed old medical records, obtained from care everywhere, as well as internal past medical records I interpreted the patient's pulse oximeter at rest, which is 99% on room air, which is normal and determined that this patient is not hypoxic I interpreted the patient's diesel mechanic helper as showing a sinus rhythm and hemodynamic stability The patient had a D-dimer obtained for identical symptoms on October 20, 3 days previously, rulingout a pulmonary embolism with patient that has a low pretest probability and is low risk by Wells criteria. The patient was thus deemed stable for discharge from emergency department. Medications lidocaine 4 % patch 1 patch (1 patch Transdermal Patch Applied 10/23/22310) ketorolac (TORADOL) injection 30 mg (30 mg Intravenous Given 10/23/22309) Clinical Impression Musculoskeletal chest pain (Primary) Rib pain on left side Current Discharge Medication List START taking these medications Details cyclobenzaprine (FLEXERIL) 5 MG tablet Take 1 tablet (5 mg total) by mouth 3 (three) times daily asneeded for Muscle Spasms. Qty: 30 tablet, Refills: 0 Class: [facility] Pharmacy: [id number], [employer] [address] (Ph #: [phone]) lidocaine (LIDODERM) 5 % Place 1 patch onto the skin daily for 30 days. Remove & Discard patch within 12 hours or as directed by Qty: 30 patch, Refills: 0 Class: [facility] Pharmacy: [facility] #[id number], [facility] - [address] (Ph #: [phone]) meloxicam (MOBIC) 15 MG tablet Take 1 tablet (15 mg total) by mouth daily for 7 days. Qty: 7 tablet, Refills: 0 Class: [facility] Pharmacy: [facility] #[id number] [facility], [facility] - [address] AT [address] (Ph #: [phone]) Disposition: Discharge home Patient provided with printed and verbal discharge care instructions and was instructed to return to the emergency department immediately with worsening symptoms or new worrisome symptoms. Patient was instructed to follow-up with primary care physician within 1 week for further evaluation and treatment. Diagnoses & treatment discussed with patient Patient expressed understanding and agreed. Ayan Garcia MD,PHD 10/24/22 [id number] REPORT DEVELOPER * Linus Jensen RN - 10/23/2022 12:31 AM CST Pt tto Ed from home reporting L pain under L breast x1 week. Pt has previously been seen for these symptoms. Pt states pain radiates into her back. States she is having difficulty sleeping due to pain. Denies SOB. REPORT DEVELOPER * Kalyan Taylor APRN - 10/23/2022 12:16 AM CST [facility] EMERGENCY DEPARTMENT NOTE Chief Complaint Chief Complaint Patient presents with ??? Rib Pain History of Present Illness Patient is a 21-year-old female with past medical history of microphonia, depression, chronic dailyheadache, who presents to the emergency department today by private vehicle with her friend for evaluation of pain under the left breast/rib for last week. Patient states that she was seen at [facility] in [place] and had a full work-up and they put her on steroids for inflammation. Patient states that it hurts with any pushing of it and deep breathing. She states that she is having trouble sleeping due to the pain. She denies any shortness of breath, fever, chills, nausea, vomiting, or any other current symptoms. Patient denies tobacco, drug, alcohol use.denies chance of . Denies cardiac history for herself or 1st degree family relative. Medical History ALLERGIES: Allergies Allergen Reactions ??? Sulfa Antibiotics Hives ??? Vancomycin Infusion Reaction Fever, chills ??? Clindamycin Hives MEDICATIONS: Prior to Admission medications Medication Sig Start Date End Date Taking? Authorizing Provider albuterol sulfate HFA 108 (90 Base) MCG/ACT inhaler 10/06/22 GENERICPROVIDER, DEFAULT HISTORY buPROPion SR (WELLBUTRIN SR) 150 MG 12 hr tablet Take 1 tablet every morning x 3 days, then increase to 1 tablet twice a day 10/08/22 Fiona Parkinson MD diclofenac EC (VOLTAREN) 50 MG tablet Take 1 tablet (50 mg total) by mouth 3 (three) times daily. 10/15/22 Fiona Parkinson MD gabapentin (NEURONTIN) 100 MG capsule Take 1 capsule (100 mg total) by mouth nightly. 10/15/22 Fiona Parkinson MD methylPREDNISolone, GHADA, (MEDROL DOSEPAK) 4 MG tablet Take 0.5 tablets (2 mg total) by mouth daily.6 TABLETS ON DAY ONE, 5 TABLETS DAY TWO, 4 TABLETS DAY THREE, 3 TABLETS DAY FOUR, 2 TABLETS DAY FIVE, AND 1 TABLET DAY SIX 10/20/22 Sharon Keane MD ondansetron (ZOFRAN-ODT) 4 MG disintegrating tablet 1 tablet every 4-6 hours as needed for nausea/vomiting 10/15/22 Fiona Parkinson MD propranolol (INDERAL) 10 MG tablet Take 1 tablet (10 mg total) by mouth 2 (two) times daily. 10/08/22 Fiona Parkinson MD PAST MEDICAL HISTORY: Past [...] Systems Review of Systems Constitutional: Negative for activity change, appetite change, chills, fatigue and fever. HENT: Negative for congestion, ear pain, postnasal drip, rhinorrhea, sinus pressure, sinus pain, sore throat and trouble swallowing. Eyes: Negative for visual disturbance. Respiratory: Negative for cough, chest tightness, shortness of breath, wheezing and stridor. Cardiovascular: Negative for chest pain, palpitations and leg swelling. Gastrointestinal: Negative. Negative for abdominal distention, abdominal pain, constipation, diarrhea, nausea and vomiting. Endocrine: Negative. Genitourinary: Negative for difficulty urinating, dysuria, flank pain and hematuria. Musculoskeletal: Positive for arthralgias (below left chest/rib). Negative for joint swelling and neck pain. Skin: Negative for color change, pallor and wound. Neurological: Negative. Negative for dizziness, seizures, syncope, light- headedness and headaches. Psychiatric/Behavioral: Negative. Negative for agitation, hallucinations and suicidal ideas. Except as noted in HPI, 10 point review of systems was completed and otherwise unremarkable or noncontributory to chief complaint. Physical Exam Filed Vitals: 10/23/22 0026 BP: 123/87 Pulse: 79 Resp: 18 Temp: 98.4 ??F (36.9 ??C) TempSrc: Temporal SpO2: 99% Weight: 79.5 kg (175 lb 4.3 oz) Height: 5' 3 (1.6 m) Physical Exam Vitals and nursing note reviewed. Constitutional: General: She is not in acute distress. Appearance: Normal appearance. She is not toxic-appearing. Comments: Sitting up on exam chair. Respirations are regular, even, nonlabored. Speaking in full sentences without difficulty. No acute distress noted. HENT: Head: Normocephalic. Right Ear: External ear normal. Left Ear: External ear normal. Nose: Nose normal. Mouth/Throat: Mouth: Mucous membranes are moist. Eyes: Conjunctiva/sclera: Conjunctivae normal. Cardiovascular: Rate and Rhythm: Normal rate and regular rhythm. Pulses: Normal pulses. Heart sounds: Normal heart sounds. Pulmonary: Effort: Pulmonary effort is normal. No respiratory distress. Breath sounds: Normal breath sounds. No stridor. No wheezing or rhonchi. Chest: Chest wall: No lacerations, swelling, tenderness or edema. There is no dullness to percussion. Breasts: Breasts are symmetrical. Comments: Reproducible pain to the left chest below breast to upper ribs. No crepitus. No deformity/bruising. Abdominal: General: Bowel sounds are normal. Palpations: Abdomen is soft. Tenderness: There is no abdominal tenderness. Skin: General: Skin is warm. Capillary Refill: Capillary refill takes less than 2 seconds. Neurological: Mental Status: She is alert and oriented to person, place, and time. Psychiatric: Mood and Affect: Mood normal. Diagnostic Studies / Procedures ELECTROCARDIOGRAMS: No results found for this visit on 10/23/22. LABORATORY STUDIES: No results found for this visit on 10/23/22. IMAGING STUDIES XR RIBS LT+PA CHEST Final Result by User, [id number] (10/23 010) Examination: 4 views left ribs with PA Chest Exam Date/Time: 10/23/2022 12:41 AM Reason For Exam: pain Pain in the left breast radiates to the back for one week. Comparison: Chest radiograph 10/13/2022 Technique: 4 views of the left ribs were obtained. PA view of chest obtained as well. Findings: Heart size normal. Pulmonary vascularity within normal limits. No large effusion or pneumothorax. No focal infiltrates or consolidations. Pulmonary vascularity within normal limits. No acute rib fracture. No destructive osseous lesions. IMPRESSION: 1. No acute cardiopulmonary findings. 2. No acute rib fracture. Referred By: Interpreted By: Torsten Mckeon MD, 10/23/2022 12:57 AM ED Course / Medical Decision Making MDM Number of Diagnoses or Management Options Diagnosis management comments: Pulse Ox Interpretation: Saturation: (%) 99 Oxygen Delivery: Room air Interpretation: No hypoxia at this time. Rhythm strip interpretation: Normal sinus rhythm, no arrhythmia noted. Ventricular rate (bpm): 79 Patient presented to [facility] ER for same symptoms and had a full cardiac work-up that was negative including a D-dimer. Presents here today with symptoms not getting better. Pain is below the left chest to the left rib region. Pain is worse with deep breathing and any touching. Patient is a very low cardiac risk, will obtain repeat labs, chest and rib x-ray and give pain medications. Will watch closely. Amount and/or Complexity of Data Reviewed Clinical lab tests: ordered and reviewed Tests in the radiology section of CPT??: ordered and reviewed Tests in the medicine section of CPT??: reviewed and ordered Review and summarize past medical records: yes Independent visualization of images, tracings, or specimens: yes Risk of Complications, Morbidity, and/or Mortality Presenting problems: low Diagnostic procedures: minimal ED Course as of 10/23/22139Oct 23, 2022 0101 XR RIBS LT+PA CHEST Per rad read: IMPRESSION: 1. No acute cardiopulmonary findings. 2. No acute rib fracture. [] 0139 Report given to ER night attending Dr. Garcia at this time. See his assumed care note for further care & disposition [] ED Course User Index [] Kalyan Taylor APRN Medications lidocaine 4 % patch 1 patch (has no administration in time range) ketorolac (TORADOL) injection 30 mg (has no administration in time range) Clinical Impression Musculoskeletal chest pain (Primary) Rib pain on left side Disposition: Data Unavailable Current Discharge Medication List Follow-up: No follow-up provider specified. Kalyan Taylor APRN 10/23/2022 Kalyan Taylor APRN, dictated portions of this note using [employer] speech recognition software. Occasional wrong word or sound-alike substitutions may have occurred due to the inherent limitations of voice recognition software. Please read the chart carefully and recognize, using context, where the pickens bstitutions may have occurred. Kalyan Taylor APRN 10/23/22139 Cosigned by Ayan Garcia MD,PHD at 10/23/2022 5:34 PM SSRS REPORT DEVELOPER REPORT DEVELOPER REPORT DEVELOPER documented in this encounter Plan of Treatment Not on file documented as of this encounter Procedures Procedure Name Priority Date/Time Associated Diagnosis Comments ECG 12-LEAD Routine 10/23/2022 3:05 AM SSRS REPORT DEVELOPER COMPREHENSIVE METABOLIC PANEL STAT 10/23/2022 2:53 AM SSRS REPORT DEVELOPER CBC W/DIFF AUTOMATED STAT 10/23/2022 2:53 AM SSRS REPORT DEVELOPER TROPONIN, QUANT STAT 10/23/2022 2:53 AM SSRS REPORT DEVELOPER XR RIBS LT+PA CHEST STAT 10/23/2022 1 2:58 AM SSRS REPORT DEVELOPER documented in this encounter Results * ECG 12 lead (10/23/2022 3:05 AM SSRS REPORT DEVELOPER) 10/23/2022 3:05 AM SSRS REPORT DEVELOPER Narrative [facility] ([facility] RAD - 10/23/2022 6:51 PM SSRS REPORT DEVELOPER ?[facility] ? [address] [facility] [place] ? Test Date: ?2022-10-23 Pat Name: ? ANGELA KIRKLAND ? Department: ?? 41 ? Room: ? Gender: ? Female ? Coach Mechanic: ?? [id number] : ?2000 ? Requested By: KALYAN TAYLOR Order Number: [id number] ? Waylon HUNT: ?? Adithya Drew ? Measurements Intervals ?Twilight ? Rate: ? 65 ? P: ?48 MO: ? 131 ?QRS: ?37 QRSD: ? 82 ? T: ?8 QT: ? 392 ? QTc: ?409 ? Interpretive Statements SINUS RHYTHM ST DEVIATION AND MODERATE T-WAVE ABNORMALITY, CONSIDER ANTERIOR ISCHEMIA [-0.1+ mV T-WAVE IN V3/V4] Compared to ECG 10/20/2022 03:17:59 T-wave abnormality still present Possible ischemia still present Other ischemic changes, not STEMI Ayan Garcia MD CRITICAL ALERT ISSUED ON 10-23-2022 3:11:00 REPORT DEVELOPER Procedure Note Adithya Drew MD - [facility] [address] [facility] [place] Test Date: 2022-10-23 Pat Name: ANGELA KIRKLAND Department: 41 Room: Gender: Female Coach Mechanic: [id number] : 2000 Requested By: KALYAN TAYLOR Order Number: [id number] Reading MD: Adithya Drew Measurements Intervals Twilight Rate: 65 P: 48 MO: 131 QRS: 37 QRSD: 82 T: 8 QT: 392 QTc: 409 Interpretive Statements SINUS RHYTHM ST DEVIATION AND MODERATE T-WAVE ABNORMALITY, CONSIDER ANTERIOR ISCHEMIA [-0.1+ mV T-WAVE IN V3/V4] Compared to ECG 10/20/2022 03:17:59 T-wave abnormality still present Possible ischemia still present Other ischemic changes, not STEMI Ayan Garcia MD CRITICAL ALERT ISSUED ON 10-23-2022 3:11:00 REPORT DEVELOPER Kalyan A [place] CLIENT DIRECTOR ECG ORDERABLES Final Result Performing Organization Address City/[facility]/ZIP Co de Phone Number [facility] ([facility] * TROPONIN, QUANT (10/23/2022 2:53 AM SSRS REPORT DEVELOPER) TROPONIN I HIGH SENSITIVITY <3 <54 ng/L 10/23/2022 3:19 AM SSRS REPORT DEVELOPER [facility] Comment: HIGH DOSES OF BIOTIN, TROPONIN-SPECIFIC AUTOANTIBODIES, AND ANTIBODY THERAPY CONTAINING HAMA MAY INTERFERE WITH THIS TEST RESULT. CORRELATION TO CLINICAL HISTORY AND PRESENTATION RECOMMENDED. 10/23/2022 2:53 AM SSRS REPORT DEVELOPER Kalyan A [place] CLIENT DIRECTOR LABORATORY Final Result Performing Organization Address [facility]/ZIP Co de Phone Number [facility] [address] [place] [address], [place] [phone] * (ABNORMAL) COMPREHENSIVE METABOLIC PANEL (10/23/2022 2:53 AM SSRS REPORT DEVELOPER) GLUCOSE 103(H) 70 - 99 MG/DL 10/23/2022 3:19 AM SSRS REPORT DEVELOPER [facility] BUN 21(H) 7 - 18 MG/DL 10/23/2022 3:19 AM SSRS REPORT DEVELOPER [facility] CREATININE S/P/B 0.77 0.55 - 1.02 MG/DL 10/23/2022 3:19 AM [facility] SODIUM S/P/B 139 136 - 145 MMOL/L 10/23/2022 3:19 AM [facility] POTASSIUM S/P/B 4.4 3.5 - 5.1 MMOL/L 10/23/2022 3:19 AM [facility] Comment:SLIGHT HEMOLYSIS, RE SULT MAY BE AFFECTED. CHLORIDE S/P/B 108 100 - 108 MMOL/L 10/23/2022 3:19 AM [facility] CO2 26.1 21 - 32 MMOL/L 10/23/2022 3:19 AM [facility] CALCIUM S/P/B 9.0 8.5 - 10.1 MG/DL 10/23/2022 3:19 AM [facility] BILIRUBIN TOTAL S/P/B 0.3 0.2 - 1.2 MG/DL 10/23/2022 3:19 AM [facility] Comment: THIS ASSAY IS NOT RECOMMENDED FOR PATIENTS UNDERGOING TREATMENT WITH ELTROMBOPAG DUE TO THE POTENTIAL FOR FALSELY ELEVATED RESULTS. TOTAL PROTEIN S/P/B 7.2 6.4 - 8.2 G/DL 10/23/2022 3:19 AM [facility] ALBUMIN S/P/B 3.7 3.4 - 5.0 G/DL 10/23/2022 3:19 AM [facility] AST 14(L) 15 - 37 U/L 10/23/2022 3:19 AM [facility] Comment:SLIGHT HEMOLYSIS, RE SULT MAY BE AFFECTED. ALT 22 14 - 55 U/L 10/23/2022 3:19 AM [facility] ALKALINE PHOSPHATASE S/P/B 64 50 - 136 U/L 10/23/2022 3:19 AM [facility] ANION GAP 4.9(L) 5 - 15 MMOL/L 10/23/2022 3:19 AM [facility] BUN CREATININE RATIO 27.4(H) 6 - 26 10/23/2022 3:19 AM [facility] A/G RATIO 1.1 1.0 - 2.0 RATIO 10/23/2022 3:19 AM [facility] GFR ESTIMATE >90 >90 ML/MIN/1.7 3 M2 10/23/2022 3:19 AM [facility] Comment: NOTE: eGFR is not calculated for patients <18 years of age. This is an estimated GFR calculation using the new CKD EPI creatinine equation without race and so does not require a correction factor for race. This estimated GFR should not be used for calculating drug doses. 10/23/2022 2:53 AM SSRS REPORT DEVELOPER Kalyan Taylor APRN LABORATORY Final Result [facility] [address] [place] [address], * (ABNORMAL) CBC W/DIFF AUTOMATED (10/23/2022 2:53 AM SSRS REPORT DEVELOPER) WBC 12.4(H) 4.5 - 11.0 x10'3/uL 10/23/2022 3:10 AM SSRS REPORT DEVELOPER [facility] RBC 4.61 4.20 - 5.40 x10'6/uL 10/23/2022 3:10 AM [facility] HGB 12.6 12.0 - 16.0 G/DL 10/23/2022 3:10 AM [facility] HCT 39.8 38.0 - 48.0 % 10/23/2022 3:10 AM [facility] MCV 86.3 81.0 - 99.0 FL 10/23/2022 3:10 AM [facility] MCH 27.3 27.0 - 31.0 PG 10/23/2022 3:10 AM [facility] MCHC 31.7(L) 32.0 - 36.0 G/DL 10/23/2022 3:10 AM [facility] RDW 14.8(H) 11.5 - 14.5 % 10/23/2022 3:10 AM [facility] PLT 194 130 - 400 x10'3/uL 10/23/2022 3:10 AM [facility] MPV 13.1(H) 9.3 - 12.2 FL 10/23/2022 3:10 AM [facility] DIFFERENTIAL TYPE AUTOMATED DIFFERENTIAL 10/23/2022 3:10 AM [facility] NEUTROPHILS % 85.2 % 10/23/2022 3:10 AM [facility] LYMPHOCYTES % 10.3 % 10/23/2022 3:10 AM [facility] MONOCYTES % 3.6 % 10/23/2022 3:10 AM [facility] EOSINOPHILS 0.1 % 10/23/2022 3:10 AM [facility] BASOPHILS 0.4 % 10/23/2022 3:10 AM [facility] IMMATURE GRANS % 0.4 % 10/23/20 3:10 AM [facility] ABS. NEUTROPHILS TOTAL 10.56(H) 1.80 - 7.70 x10'3/uL 10/23/2022 3:10 AM [facility] ABS. LYMPHOCYTES 1.27 1.00 - 4.80 x10'3/uL 10/23/2022 3:10 AM [facility] ABS. MONOCYTES 0.44 0.24 - 0.86 x10'3/uL 10/23/2022 3:10 AM SSRS REPORT DEVELOPER [facility] ABS. EOSINOPHILS 0.01(L) 0.04 - 0.36 x10'3/uL 10/23/2022 3:10 AM SSRS REPORT DEVELOPER [facility] ABS. BASOPHILS 0.05 0.01 - 0.08 x10'3/uL 10/23/2022 3:10 AM SSRS REPORT DEVELOPER [facility] ABS. IMMATURE GRANULOCYTES 0.05 0.00 - 0.49 x10'3/uL 10/23/2022 3:10 AM SSRS REPORT DEVELOPER [facility] 10/23/2022 2:53 AM SSRS REPORT DEVELOPER us Kalyan Taylor CLIENT DIRECTOR LABORATORY Final Result [facility] [address] [place] [address], [place] [phone] * XR RIBS LT+PA CHEST (10/23/2022 12:58 AM SSRS REPORT DEVELOPER) Anatomical Region Laterality Modality Chest Radiographic Ann Marie ging 10/23/2022 12:5 7 AM SSRS REPORT DEVELOPER Impressions 10/23/2022 1:00 AM SSRS REPORT DEVELOPER IMPRESSION: 1. ??No acute cardiopulmonary findings. 2. ??No acute rib fracture. Referred By: ?? Interpreted By: Torsten Mckeon MD, 10/23/2022 12:57 AM Narrative 10/23/2022 1:00 AM SSRS REPORT DEVELOPER Examination: 4 ??views left ribs with PA Chest Exam Date/Time: 10/23/2022 12:41 AM Reason For Exam: ??pain ?? Pain in the left breast radiates to the back for one week. Comparison: Chest radiograph 10/13/2022 Technique: 4 ??views of the left ribs were obtained. ??PA view of chest obtained as well. Findings: Heart size normal. ??Pulmonary vascularity within normal limits. ??No large effusion or pneumothorax. ??No focal infiltrates or consolidations. ??Pulmonary vascularity within normal limits. ??No acute rib fracture. ??No destructive osseous lesions. Procedure Note Torsten Mckeon MD - 10/23/2022 Examination: 4 views left ribs with PA Chest Exam Date/Time: 10/23/2022 12:41 AM Reason For Exam: pain Pain in the left breast radiates to the back for one week. Comparison: Chest radiograph 10/13/2022 Technique: 4 views of the left ribs were obtained. PA view of chestobtained as well. Findings: Heart size normal. Pulmonary vascularity within normal limits.No large effusion or pneumothorax. No focal infiltrates orconsolidations. Pulmonary vascularity within normal limits. No acute ribfracture. No destructive osseous lesions. IMPRESSION: 1. No acute cardiopulmonary findings. 2. No acute rib fracture. Referred By: Interpreted By: Torsten Mckeon MD, 10/23/2022 12:57 AM Kalyan Taylor CLIENT DIRECTOR GENERAL IMAGING Final Result documented in this encounter Visit Diagnoses Diagnosis Musculoskeletal chest pain- Primary Other chest pain Rib pain on left side Chest pain, unspecified documented in this encounter Administered Medications Inactive Administered Medications - up to 3 most recent administrations Medication Order MAR Action Action Date Dose Rate Site ketorolac (TORADOL) injection 30 mg 30 mg, Intravenous, Once, 1 dose, On e 10/23/22 at 0030, For IV administration, give over 15 seconds. Given 10/23/2022 3:10 AM SSRS REPORT DEVELOPER 30 mg lidocaine 4 % patch 1 patch 1 patch, Transdermal, Administer over 12 Hours, Once, 1 dose, On e 10/23/22 at 0030 Patch Applied 10/23/2022 3:11 AM SSRS REPORT DEVELOPER 1 patch Othe r documented in this encounter Active and Recently Administered Medications Times are shown in SSRS REPORT DEVELOPER. Scheduled Medication Order 10/21/2022 10/22/2022 10/23/2022 ketorolac (TORADOL) injection 30 mg (COMPLETED) 30 mg, Intravenous, Once, 1 dose, On Sat10/23/22 at 0030, For IV administration, give over 15 seconds. 0310 (Given - Provid er: Phan Orona RN) lidocaine 4 % patch 1 patch 1 patch, Transdermal, Administer over 12 Hours, Once, 1 dose, On Sat10/23/22 at 0030 0311 (Patch Applied - Provider: Phan Orona RN - Comment: left rib cage)0503 (Due: Patch Removed - Provider: Automatic Discharge Provider - Comment: Time automatically adjusted from order being discontinued) documented in this encounter Additional Health Concerns Assessment Noted Time PHQ-9 Depression Total Score: 14 022 1:17 PM SSRS REPORT DEVELOPER documented as of this encounter Care Teams Shuttle Fitting Supervisor Relationship Specialty Start Date End Date Fiona Parkinson MD PCP - General FAMILY PRACTICE 10/08/22 04/14/23 documented as of this encounter
--- OUTSIDE RECORDS SUMMARY | 2024-11-14 19:16 | XMS_ITS | Encounter Summary ---
Author Organization [facility] Address [address] [place] [address]. [place] [address] [place] [address] Care Team Providers Care Foreign Exchange Clerk Name Role Phone Cortney Colbert NP Primary Care Provider [phone] Fiona Parkinson MD Primary Care Pr ovider Unavailable Jovanny Suazo MD Primary Care Provider [phone] None, Provider Primary Care Provider Unavaila ble Encounter Details Date Type Department Care Team (Late st Contact Info) Description 07/11/2021 Hospital Follow-up Call [facility] [place], [place] [id number] Fani Moctezuma, RN Social History Tobacco Use Types Packs/Day Years [...] on filedocumented in this encounter Care Teams Foreign Exchange Clerk Relationship Specialty Start Date End Date Cortney Colbert NP [address] [place] [id number] PCP - General NURSE PRACTITIONER 05/06/21 10/07/22 Fiona Parkinson MD [address] [place] [address] PCP - General FAMILY PRACTICE 10/08/22 04/14/23 Jovanny Suazo MD [address] [place] [address] PCP - General INTERNAL MEDICINE 04/15/23 06/27/24 Tarsha Mayo MD PCP - General UNKNOWN PHYSICIAN SPECIALTY 06/28/24 documented as of this encounter
--- OUTSIDE RECORDS SUMMARY | 2024-11-14 19:16 | XMS_ITS | Encounter Summary ---
Author Organization [facility] Address [address] [place] [address]. [place], [place] [id number] [place] [address] Care Team Providers Care Financial Coordinator Name Role Phone Fiona Parkinson MD Primary Care Pr ovider Unavailable Encounter Details Date Type Department Care Team (Latest Contact Info) Description 10/25/2022 Travel Social History Tobacco Use Types Packs/Day [...] suspected to have Coronavirus/COVID-19? No / Unsure 10/25/2022 9:52 AM WARDROBE CUSTODIAN documented as of this encounter Functional Status [...] Depression Total Score: 14 022 1:17 PM WARDROBE CUSTODIAN documented as of this encounter Care Teams Financial Coordinator Relationship Specialty Start Date End Date Fiona Parkinson MD PCP - General FAMILY PRACTICE 10/08/22 04/14/23 documented as of this encounter
--- OUTSIDE RECORDS SUMMARY | 2024-11-14 19:16 | XMS_ITS | Encounter Summary ---
Author Organization [facility] Address [address] [place] [address]. [place], [place] [id number] [place] [id number] Care Team Providers Care Certified Green Building Engineer Name Role Phone Fiona Parkinson MD Primary Care Pr ovider Unavailable Encounter Details Date Type Department Care Team (Latest Contact Info) Description 10/20/2022 Travel Social History Tobacco Use Types Packs/Day [...] Coronavirus/COVID-19? No / Unsure 10/20/2022 3:19 AM EARLY INTERVENTION SCHOOL PSYCHOLOGIST documented as of this encounter Functional Status [...] Depression Total Score: 14 022 1:17 PM EARLY INTERVENTION SCHOOL PSYCHOLOGIST documented as of this encounter Care Teams Certified Green Building Engineer Relationship Specialty Start Date End Date Fiona Parkinson MD PCP - General FAMILY PRACTICE 10/08/22 04/14/23 documented as of this encounter
--- OUTSIDE RECORDS SUMMARY | 2024-11-14 19:16 | XMS_ITS | Encounter Summary ---
Author Organization [facility] Address [address] [place] [address]. [place] [address] [place] [address] Care Team Providers Care Veterinary Laboratory Diagnostician Name Role Phone Cortney Colbert NP Primary Care Provider [phone] Reason for Visit * Auth/Cert Specialty Diagnoses / Procedures Referred By Contac t Referred To Contact Diagnoses Pelvic pain left adnexal mass Pelvic pain Procedures NA Referral ID Status Reason Start Date Expiration Date Visits Re quested Visits Authorized [id number] 1 1 Encounter Details Date Type Department Care Team (Late st Contact Info) Description 07/07/2021 12:34 PM CDT Anesthesia Event [facility] [place] [address] Gene Faustin MD [address] [facility] [address] [place], [place] [address] Anesthesia Record Procedure Summary Procedure Name Responsible Anesthesiologist Anesthesia Start Time Anesthesia Stop Time LAPAROSCOPIC EXTENSIVE ADHESIOLYSIS AND EVACUATION OF CLOT (Abdomen) Gene Faustin MD 07/07/21 1234 07/07/21 1513 Events Date Time Event Comment 07/07/2021 1201 1201 AN Anesthesia Prepped 1219 AN FINANCIAL REP Prepped 1234 An Start Patient ID and consent checked and patient reassessed. 1237 An Start Data 1238 Preoxygenation 1242 An Induction The patient was reevaluated immediately before moderate or deep sedation use and before anesthesia induction. 1245 An Intubation 1246 Anesthesia Ready 1247 an musatpha now 1321 An Surgeon on Cuff 1455 An Emergence 1500 An Extubation 1502 Face Mask Applied 1506 an stop data 1513 An Stop Meds Name Total midazolam 2 mg/2 mL injection 2 mg fentaNYL (SUBLIMAZE) 100 mcg/2 mL inject ion 100 mcg lidocaine (PF) (XYLOCAINE) 2% injection 100 mg propofol (DIPRIVAN) 200 mg/20 mL injecti on 200 mg rocuronium (ZEMURON) 50 mg/5 mL injectio n 40 mg ceFAZolin (ANCEF) 2 g in NS 100 mL IVPB 2 g phenylephrine (TY-SYNEPHRINE) injection 320 mcg ketorolac (TORADOL) 30 mg/mL injection 3 0 mg ondansetron (ZOFRAN) 4 mg/2 mL injection 4 mg lactated ringers infusion 1,300 mL * Agents Name O2 N2O Air Inspired Sevoflurane Sevoflurane * Blood No blood administrations on file. Lines, Drains, and Airways Type Details Placement Removal Peripheral IV Placement Date: 06/12 05/01; Placement Time: 1532; Placed Outside of This Facility?: No; Size: 20 G; Orientation: Right; Location: Antecubital; Site Prep: Chlorhexidine; Local Anesthetic: None; Insertion attempts: 1; Ultrasound-guided Placement?: No; Patient Tolerance: Tolerated well; Removal Date: 07/08/21; Removal Time: 0544; Removal Reason: Infiltrated 07/06/21 1532 by Yenny Ritchie RN 07/08/21 0544 by Jenn Santo RN ETT Placement Date: 06/12 05/31; Placement Time: 1245; Mask Ventilate: Easy, Prior to intubation; Size (mm) : 7; Endotracheal: Oral, Stylet used; Blade Type: López 2; Placement Method: Direct Laryngoscopy (blade type in comment); View Grade: 1; Viewable Anatomy: Epiglottis, Arytenoid, Vocal cords; Insertion Attempts: 1; Placement Verified By: Capnography, Auscultation, Chest Rise; Placed By: NIECY; Extubation Assessment: Suctioned, Tolerated well, Patient spontaneously breathing, Moves all extremities strongly, Lifts et holds head > 5 seconds, Deep breathes w/equal chest movements, Able to swallow, Atraumatic; Removal Date: 07/07/21; Removal Time: 1500; Removal Person: FINANCIAL REP; Removal Reason: End of Case 07/07/21 1245 by Nabor De CRNA 07/07/21 1500 by Nabor De CRNA NG/OG Tube Placement Date: 06/12 05/31; Placement Time: 1246; Inserted By: Martina De CRNA; Tube Type: Orogastric; Tube Size: (18); Removal Date: 07/07/21; Removal Time: 1441 07/07/21 1246 by Nabor De CRNA 07/07/21 1441 by Nabor De CRNA Peripheral IV Placement Date: 06/12 05/31; Placement Time: 1247; Size: 18 G; Orientation: Left; Location: Antecubital; Site Prep: Chlorhexidine; Local Anesthetic: None; Inserted By: Dr. Arin Faustin; Insertion attempts: 1; Patient Tolerance: Tolerated well; Removal Date: 07/08/21; Removal Time: 1230; Removal Reason: Therapy Completed 07/07/21 1247 by Nabor De CRNA 07/08/21 1230 by Anushka Khan RN Rhodes Catheter 07/07/21; 1313; No; Urologic Surgical intervention - Bladder, Prostate, HEALTH INFORMATION SYSTEMS TECHNICIAN procedures; 1; Hand hygiene performed, Catheter inserted using aseptic technique, Drainage bag secured below level of bladder, Closed system maintained, Anchoring device applied, Sterile gloves, drape and lubricant used, Site cleansed with sterile antiseptic; Stat lock; Latex, Straight-tip; 14 Fr.; End of Case 07/07/21 1313 by Filomena Fabian RN 07/07/21 1448 by Filomena Fabian RN Surgical/Incision 07/07/21; 1448; Surg ical Wound; Abdomen; Other (Comment); 3 trocar sites, suture, dermabond ; 07/08/21; 1624 07/07/21 1448 by Filomena Fabian RN 07/08/21 1624 by Automatic Discharge Provider documented in this encounter Social History Tobacco [...] shopping? No 07/07/2021 2:08 AM CDT Breann Palomares RN Active * RETIRED Are you deaf [...] 07/07/2021 2:08 AM CDT Alba Palomares R Moses Active * Because of a physical, mental, or emotional condition, do you have difficulty doing errands alone such as visiting a doctor's office or shopping? Answer Date of Assessment Author Status No 07/07/2021 2:08 AM CDT Alba Palomares R Moses Active documented as of this encounter Mental Status * Question Answer Entry Date Author Status Because of a physical, mental, or emotional condition, do you have serious difficulty concentrating, remembering, or making decisions? No 07/07/2021 2:08 AM CDT Alba Palomares RN Active * Because of a physical, mental, or emotional condition, do you have serious difficulty concentrating, remembering, or making decisions? Answer Entry Date Author Status No 07/07/2021 2:08 AM CDT Alba Palomares R N Active documented in this encounter OR Notes * Anesthesia Postprocedure Evaluation - Madie Marcos CRNA - 07/08/2021 8:30 AM CDT Anesthesia Post-op Note Angela Peterson Procedure(s): LAPAROSCOPIC EXTENSIVE ADHESIOLYSIS AND EVACUATION OF CLOT (N/A Abdomen) Anesthesia type: general Vitals: 07/08/21 0741 BP: 98/62 Vitals: 07/07/21 1600 Pulse: 77 Vitals: 07/07/21 1600 Resp: 15 Vitals: 07/07/21 1600 Temp: 36.7 ??C Vitals: 07/08/21 0741 SpO2: 99% Patient Location: Inpatient Unit Level of Consciousness: awake, oriented and alert Pain Management: adequate analgesia Airway Patency: patent Respiratory Status: acceptable, room air, nonlabored ventilation and spontaneous ventilation Cardiovascular Status: acceptable and hemodynamically stable Post-Op Nausea: none Postoperative Hydration: euvolemic Comments: Blood pressure 98/62, pulse 77, temperature 36.7 ??C, temperature source Temporal, resp. rate 15, SpO2 99 %. No complications documented. * Anesthesia Postprocedure Evaluation - Gene Faustin MD - 07/07/2021 3:51 PM CDT Anesthesia Post-op Note Anegla Peterson Procedure(s): LAPAROSCOPIC EXTENSIVE ADHESIOLYSIS AND EVACUATION OF CLOT (N/A Abdomen) Anesthesia type: general Vitals: 07/07/21 1600 BP: 119/66 Vitals: 07/07/21 1600 Pulse: 77 Vitals: 07/07/21 1600 Resp: 15 Vitals: 07/07/21 1600 Temp: 36.7 ??C Vitals: 07/07/21 1600 SpO2: 98% Patient Location: PACU Level of Consciousness: awake Pain Management: adequate analgesia Airway Patency: patent Respiratory Status: acceptable Cardiovascular Status: acceptable Post-Op Nausea: none Postoperative Hydration: euvolemic No complications documented. * Anesthesia Preprocedure Evaluation - Gene Faustin MD - 07/07/2021 10:35 AM CDT Anesthesia ROS/MED History Reviewed: Patient summary , ECG, Family history anesthesia, Anesthesia history , Medications , Labs , Images/Studies , Unchecked boxes are not applicable Pre-Anesthetic State: alert, awake and responds appropriately history of anesthetic complications (+ motion sickness.), (PONV) Pulmonary Cardiovascular neg cardio ROS Exercise tolerance:good Neuro/Psych (+) depression Comments: Misophonia GI/Hepatic/Renal neg GI/hepatic/renal ROS Endo/Other (+) blood dyscrasia, (Anemia) GENERAL COMMENTS -- Sulfa Antibiotics -- Hives -- Clindamycin -- Hives Past Medical History: 2017: Depression 2015: Misophonia Past Surgical History: No date: ABDOMINAL SURGERY No date: EYE SURGERY No date: FRACTURE SURGERY No date: TONSILLECTOMY Physical Evaluation Airway Mallampati: II TM Distance: >3 FB Neck ROM: normal Dental No notable dental history Pulmonary Pulmonary exam normal Breath sounds clear to auscultation Cardiovascular Rhythm: regular Rate: normal Cardiovascular exam normal Other findings: Blood pressure 97/59, pulse 66, temperature 36.7 ??C, temperature source Oral, resp. rate 14, SpO2 100 %. 07/06/21 07/06/21 07/07/21 1535 1535 0044 WBC 5.9 < > 7.6 RBC 4.71 < > 4.57 HGB 13.0 < > 12.6 HCT 40.4 < > 39.2 PLT 196 < > 185 NA 139 -- -- K 3.8 -- -- CL 105 -- -- CO2 28.7 -- -- AGAP 5.3 -- -- BUN 14 -- -- CR 0.75 -- -- BUNCREATININ 18.7 -- -- GFRNON >90 -- -- GFR >90 -- -- GLU 98 -- -- CA 9.2 -- -- < > = values in this interval not displayed. Anesthesia Plan ASA 2 Intravenous Induction Anesthesia type: general Plan for Airway: ETT Plan for Post-op Pain Plan: as per surgeon, oral pain medication and IV analgesics Discussed potential risks of General Anesthesia including but not limited to corneal abrasion, visual impairment or visual loss, mouth injury, dental damage, sore throat, hoarseness, esophageal injury, awareness under anesthesia, nerve injury due to positioning, aspiration, pneumonia, stroke, cardiac event, adverse drug reactions and . Informed Consent Anesthetic plan and risks discussed with patient of whom consent was obtained. . documented in this encounter Plan of Treatment Not on file documented as of this encounter Visit Diagnoses Not on filedocumented in this encounter Administered Medications Inactive Administered Medications - up to 3 most recent administrations Medication Order MAR Action Action Date Dose Rate Site ceFAZolin (ANCEF) 2 g in NS 100 mL IVPB Intravenous, Administer over 30 Minutes, PRN, Starting on Sat07/07/21 at 1247, Until Sat07/07/21 at 1527, Anesthesia Intra-Op Given 07/07/2021 12:47 PM CDT 2 g fentaNYL (SUBLIMAZE) injection Intravenous, PRN, Starting on Sat07/07/21 at 1243, Until Sat07/07/21 at 1527, Anesthesia Intra-Op Given 07/07/2021 3:03 PM CDT 50 mcg Given 07/07/2021 12:43 PM CDT 50 mcg ketorolac (TORADOL) injection Intravenous, PRN, Starting on Sat07/07/21 at 1453, Until Sat07/07/21 at 1527, Anesthesia Intra-Op Given 07/07/2021 2:53 PM CDT 30 mg lactated ringers infusion at 10 mL/hr, Intravenous, Continuous, Starting on Sat07/07/21 at 1115, Until Sat07/08/21 at 1629, Infuse at TKO rate,Please do not start LR if patient has diagnosis of End stage renal disease, Pre-Op New Bag 07/07/2021 2:31 PM CDT New Bag 07/07/2021 11:57 AM CDT 10 mL/hr lidocaine (PF) (XYLOCAINE) 2 % injection Intravenous, PRN, Starting on Sat07/07/21 at 1243, Until Sat07/07/21 at 1527, Anesthesia Intra-Op Given 07/07/2021 12:43 PM CDT 100 mg midazolam (VERSED) injection Intravenous, PRN, Starting on Sat07/07/21 at 1232, Until Sat07/07/21 at 1527, Anesthesia Intra-Op Given 07/07/2021 12:32 PM CDT 2 mg ondansetron (ZOFRAN) injection Intravenous, PRN, Starting on Sat07/07/21 at 1455, Until Sat07/07/21 at 1527, Anesthesia Intra-Op Given 07/07/2021 2:55 PM CDT 4 mg phenylephrine (TY-SYNEPHRINE) injection Intravenous, PRN, Starting on Sat07/07/21 at 1259, Until Sat07/07/21 at 1527, Anesthesia Intra-Op Given 07/07/2021 1:16 PM CDT 160 mcg Given 07/07/2021 12:59 PM CDT 160 mcg propofol (DIPRIVAN) IV bolus Intravenous, PRN, Starting on Sat07/07/21 at 1242, Until Sat07/07/21 at 1527, Anesthesia Intra-Op Given 07/07/2021 12:42 PM CDT 200 mg rocuronium (ZEMURON) injection Intravenous, PRN, Starting on Sat07/07/21 at 1243, Until Sat07/07/21 at 1527, Anesthesia Intra-Op Given 07/07/2021 12:43 PM CDT 40 mg documented in this encounter Care Teams Veterinary Laboratory Diagnostician Relationship Specialty Start Date End Date Cortney Colbert NP [address] [place] [address] PCP - General NURSE PRACTITIONER 05/06/21 10/07/22 documented as of this encounter
--- OUTSIDE RECORDS SUMMARY | 2024-11-14 19:16 | XMS_ITS | Encounter Summary ---
Author Organization [facility] Address [address] [place] [address]. [place], [place] [address] [place] [address] Care Team Providers Care Marine Electronics Repairer Name Role Phone Fiona Parkinson MD Primary Care Pr ovider Unavailable Encounter Details Date Type Department Care Team (Late st Contact Info) Description 10/25/2022 - 10/25/2022 11:59 PM PAWN BROKER Hospital [facility] [address] [address] Fiona Parkinson MD Discharge Disposition: Home or [...] Coronavirus/COVID-19? No / Unsure 10/25/2022 9:52 AM PAWN BROKER documented as of this encounter Functional Status [...] disorder,Moderate episode of recurrent major depressive disorder ([facility]) Take 1 tablet every morning x [...] Depression Total Score: 14 022 1:17 PM PAWN BROKER documented as of this encounter Care Teams Marine Electronics Repairer Relationship Specialty Start Date End Date Fiona Parkinson MD PCP - General FAMILY PRACTICE 10/08/22 04/14/23 documented as of this encounter
--- OUTSIDE RECORDS SUMMARY | 2024-11-14 19:16 | XMS_ITS | Encounter Summary ---
Author Organization [facility] Address [address] [place] [address]. [place], [place] [address] [place] [address] Care Team Providers Care Film And Video Editor Name Role Phone Fiona Parkinson MD Primary Care Pr ovider Unavailable Encounter Details Date Type Department Care Team (Late st Contact Info) Description 10/19/[address] [facility] Multispecialty Care - [address] [place] [address] Magdalene Argueta MA Social History Tobacco Use Types Packs/Day Years [...] Coronavirus/COVID-19? No / Unsure 10/23/2022 12:25 AM MOLECULAR BIOLOGY DIRECTOR documented as of this encounter Functional Status [...] Name Priority Date/Time Associated Diagnosis Comments CULTURE STREP A Routine 10/19/2022 2:10 PM MOLECULAR BIOLOGY DIRECTOR Sore throat CBC W/DIFF AUTOMATED Routine 10/19/2022 2:10 PM MOLECULAR BIOLOGY DIRECTOR Sore throat LUQ pain documented in this encounter Results * (ABNORMAL) CBC W/DIFF AUTOMATED (10/19/2022 2:10 PM MOLECULAR BIOLOGY DIRECTOR) Pathologist [facility] WBC 5.9 4.0 - 10.8 x10'3/uL 10/19/2022 8:05 PM MOLECULAR BIOLOGY DIRECTOR [facility] RBC 4.28 4.10 - 5.40 x10'6/uL 10/19/2022 8:05 PM MOLECULAR BIOLOGY DIRECTOR [facility] HGB 11.7(L) 12.0 - 16.0 G/DL 10/19/2022 8:05 PM [facility] HCT 36.5 36.0 - 47.0 % 10/19/2022 8:05 PM [facility] MCV 85.3 78.0 - 100.0 FL 10/19/2022 8:05 PM [facility] MCH 27.3 27.0 - 31.0 PG 10/19/2022 8:05 PM [facility] MCHC 32.1(L) 33.0 - 36.0 G/DL 10/19/2022 8:05 PM [facility] RDW 14.2 11.5 - 14.5 % 10/19/2022 8:05 PM [facility] PLT 178 150 - 350 x10'3/uL 10/19/2022 8:05 PM [facility] MPV 13.6(H) 7.4 - 10.4 FL 10/19/2022 8:05 PM [facility] IMMATURE GRANS % 0.2 % 10/19/2022 8:07 PM [facility] NEUTROPHILS % 66.1 % 10/19/2022 8:07 PM [facility] EOSINOPHILS % 1.2 % 10/19/2022 8:07 PM [facility] BASOPHILS % 0.5 % 10/19/2022 8:07 PM [facility] LYMPHOCYTES % 26.1 % 10/19/2022 8:07 PM [facility] MONOCYTES % 5.9 % 10/19/2022 8:07 PM [facility] ABS. IMMATURE GRANULOCYTES 0.01 0.00 - 0.03 x10'3/uL 10/19/2022 8:07 PM [facility] ABS. NEUTROPHILS 3.90 1.60 - 8.30 x10'3/uL 10/19/2022 8:07 PM [facility] ABS. EOSINOPHILS 0.07 0.00 - 0.40 x10'3/uL 10/19/2022 8:07 PM [facility] ABS. BASOPHILS 0.03 0.00 - 0.20 x10'3/uL 10/19/2022 8:07 PM MOLECULAR BIOLOGY DIRECTOR [facility] ABS. LYMPHOCYTES 1.54 0.80 - 4.70 x10'3/uL 10/19/2022 8:07 PM MOLECULAR BIOLOGY DIRECTOR [facility] ABS. MONOCYTES 0.35 0.00 - 1.50 x10'3/uL 10/19/2022 8:07 PM MOLECULAR BIOLOGY DIRECTOR [facility] RBC MORPHOLOGY NORMAL 10/19/2022 8:07 PM MOLECULAR BIOLOGY DIRECTOR [facility] PLT MORPH. NORMAL 10/19/2022 8:07 PM MOLECULAR BIOLOGY DIRECTOR [facility] PLT EST. NORMAL x10'3/uL 10/19/2022 8:07 PM MOLECULAR BIOLOGY DIRECTOR [facility] DIFFERENTIAL TYPE AUTOMATED DIFFERENTIAL 10/19/2022 8:07 PM MOLECULAR BIOLOGY DIRECTOR [facility] 10/19/2022 2:10 PM MOLECULAR BIOLOGY DIRECTOR us Fiona Parkinson MD LABORATORY Final Result [facility] [address] [place] [address], [place] [phone] * CULTURE STREP A (MG/SJS/SMD Only) (10/19/2022 2:10 PM MOLECULAR BIOLOGY DIRECTOR) SPEC DESCRIPTION THROAT 10/19/2022 2:10 PM MOLECULAR BIOLOGY DIRECTOR [facility] SPECIAL REQUESTS NO SPECIAL REQUEST 10/19/2022 2:10 PM MOLECULAR BIOLOGY DIRECTOR [facility] CULTURE RESULT NO STREPTOCOCCUS PYOGENES (GROUP A) ISOLATED 10/22/2022 8:45 AM MOLECULAR BIOLOGY DIRECTOR [facility] THROAT SWAB / Unknown 10/19/2022 2:10 PM MOLECULAR BIOLOGY DIRECTOR 10/19/2022 9:04 PM MOLECULAR BIOLOGY DIRECTOR Fiona Parkinson MD MICROBIOLOGY - G ENERAL ORDERABLES Final Result [facility] [address] [place] [address], [id number] documented in this encounter Visit Diagnoses Diagnosis Sore throat Acute pharyngitis LUQ pain Abdominal pain, left upper quadrant documented in this encounter Additional Health Concerns Assessment Noted Time PHQ-9 Depression Total Score: 14 022 1:17 PM MOLECULAR BIOLOGY DIRECTOR documented as of this encounter Care Teams Film And Video Editor Relationship Specialty Start Date End Date Fiona Parkinson MD PCP - General FAMILY PRACTICE 10/08/22 04/14/23 documented as of this encounter
--- OUTSIDE RECORDS SUMMARY | 2024-11-14 19:16 | XMS_ITS | Encounter Summary ---
Author Organization [facility] Address [address] [place] [address]. [place], [place] [address] [place] [address] Care Team Providers Care Mobile Developer Name Role Phone Fiona Parkinson MD Primary Care Pr ovider Unavailable Encounter Details Date Type Department Care Team (Latest Contact Info) Description 10/13/2022 Travel Social History Tobacco Use Types Packs/Day [...] suspected to have Coronavirus/COVID-19? No / Unsure 10/13/2022 6:10 PM MECHANICAL CAR CHECKER documented as of this encounter Functional Status [...] Depression Total Score: 14 022 1:17 PM MECHANICAL CAR CHECKER documented as of this encounter Care Teams Mobile Developer Relationship Specialty Start Date End Date Fiona Parkinson MD PCP - General FAMILY PRACTICE 10/08/22 04/14/23 documented as of this encounter
--- OUTSIDE RECORDS SUMMARY | 2024-11-14 19:16 | XMS_ITS | Encounter Summary ---
Author Organization [facility] Address [address] [place] [address]. [place], [place] [address] [place] [address] Care Team Providers Care Credit Risk Modeler Name Role Phone Fiona Parkinson MD Primary Care Pr ovider Unavailable Reason for Visit * Reason Comments Ultrasound (SCAN) Encounter Details Date Type Department Care Team ([facility] Contact Info) Description 10/24/2022 Scan HEALTH INFO SRVCS Scanned, Doc Med Group Ultrasound (SCAN) Social History Tobacco Use Types Packs/Day Years [...] In the last 10 days, have benji u been in contact with someone who was confirmed or suspected to have Coronavirus/COVID-19? No / Unsure 10/25/2022 9:52 AM WARDROBE SUPERVISOR documented as of this encounter Functional Status [...] Procedure Name Priority Date/Time Associated Diagnosis Comments ULTRASOUND GENERIC (SCAN ORDER) 10/24/2022 ULTRASOUND GENERIC (SCAN ORDER) 10/24/2022 documented in this encounter Results * ULTRASOUND GENERIC (10/24/2022) Anatomical Region Laterality Modality Other 10/24/2022 us [facility] Scanned SCANNING Final Resu lt * ULTRASOUND GENERIC (10/24/2022) Anatomical Region Laterality Modality Other 10/24/2022 us [facility] Scanned SCANNING Final Resu lt documented in this encounter Visit Diagnoses Not on filedocumented in this encounter Additional Health Concerns Assessment Noted Time PHQ-9 Depression Total Score: 14 022 1:17 PM WARDROBE SUPERVISOR documented as of this encounter Care Teams Credit Risk Modeler Relationship Specialty Start Date End Date Fiona Parkinson MD PCP - General FAMILY PRACTICE 10/08/22 04/14/23 documented as of this encounter
--- OUTSIDE RECORDS SUMMARY | 2024-11-14 19:16 | XMS_ITS | Encounter Summary ---
Author Organization [facility] Address [address] [place] [address]. [place], [place] [address] [place] [address] Care Team Providers Care Bomb Loader Name Role Phone Fiona Parkinson MD Primary Care Pr ovider Unavailable Encounter Details Date Type Department Care Team (Latest Contact Info) Description 10/18/2022 Scan MG HEALTH INFO SRVCS Scanned, Doc [...] Coronavirus/COVID-19? No / Unsure 10/25/2022 9:52 AM DOCUMENT PREPARATION SPECIALIST documented as of this encounter Functional Status [...] Depression Total Score: 14 022 1:17 PM DOCUMENT PREPARATION SPECIALIST documented as of this encounter Care Teams Bomb Loader Relationship Specialty Start Date End Date Fiona Parkinson MD PCP - General FAMILY PRACTICE 10/08/22 04/14/23 documented as of this encounter
--- OUTSIDE RECORDS SUMMARY | 2024-11-14 19:16 | XMS_ITS | Encounter Summary ---
Author Organization [facility] Address [address] [place] [address]. [place], [place] [address] [place] [address] Care Team Providers Care Point Of Care Technician Name Role Phone Fiona Parkinson MD Primary Care Pr ovider Unavailable Encounter Details Date Type Department Care Team (Latest Contact Info) Description 01/24/2023 Travel Social History Tobacco Use Types Packs/Day [...] Depression Total Score: 14 022 1:17 PM TEST CONDUCTOR documented as of this encounter Care Teams Point Of Care Technician Relationship Specialty Start Date End Date Fiona Parkinson MD PCP - General FAMILY PRACTICE 10/08/22 04/14/23 documented as of this encounter
--- OUTSIDE RECORDS SUMMARY | 2024-11-14 19:16 | XMS_ITS | Encounter Summary ---
Author Organization [facility] Address [address] [place] [address]. [place], [place] [address] [place] [address] Care Team Providers Care Employee Relation Manager Name Role Phone Cortney Colbert NP Primary Care Provider [phone] Reason for Visit * Reason Onset Date Comments Follow Up Call 01/29/2022 Encounter Details Date Type Department Care Team (Late st Contact Info) Description 01/29/2022 Telephone [facility] Med/Surg [address] [place] [address] Ursula Espinoza, RN Follow Up Call Social History Tobacco Use [...] Assessment Author Status No 01/26/2022 3:52 AM CDTaylor Charles R N Active * Because of a [...] on filedocumented in this encounter Care Teams Employee Relation Manager Relationship Specialty Start Date End Date Cortney Colbert NP [address] [place] [address] PCP - General NURSE PRACTITIONER 05/06/21 10/07/22 documented as of this encounter
--- OUTSIDE RECORDS SUMMARY | 2024-11-14 19:16 | XMS_ITS | Encounter Summary ---
Author Organization [facility] Address [address] [place] [address]. [place] [address] [place] [address] Care Team Providers Care Supervisor Pressing Department Name Role Phone Cortney Colbert NP Primary Care Provider Reason for Visit * Reason Comments Rash Encounter Details Date Type Department Care Team (Late st Contact Info) Description 05/28/2022 8:59 PM CDT - 05/28/2022 9:49 PM CDT Emergency [facility] Emergency Room [address] [place] [address] Derina Sorenson MD [address] [place] [phone] Rash Discharge Disposition: Home or Self Care (Routine [...] Sign Reading Time Taken Comments Blood Pressure 114/67 05/28/2022 9:08 PM CDT Pulse 79 05/28/2022 9:08 PM CDT Temperature 36.6 ??C (97.8 ??F) 05/28/2022 9:08 PM CD T Respiratory Rate 18 05/28/2022 9:08 PM CDT Oxygen Saturation 100% 05/28/2022 9:08 PM CDT Inhaled Oxygen Concentration - - Weight 73.9 kg (163 lb) 05/28/2022 9:08 PM CDT Height 160 cm (5' 3 ) 05/28/2022 9:08 PM CDT Body Mass Index 28.87 05/28/2022 9:08 PM CDT documented in this encounter Functional [...] * Discharge Instructions* Derian Sorenson MD - 05/28/2022 9:13 PM CDT Take the antibiotic as directed until gone. Call your primary care doctor tomorrow to arrange followup. * Attachments The following attachments cannot be sent through Care Everywhere. * Cellulitis (Skin Infection) Discharge Instructions, Adult (Solomon Islander) documented in this encounter Medications at Time of Discharge amoxicillin-clav ulanate (AUGMENTIN) 875-125 MG tablet Take 1 tablet (875 mg total) by mouth 2 (two) times daily for 10 days. 20 tablet 05/28/2022 2 Etonogestrel-Eth inyl Estradiol 0.12-0.015 MG/24HR RING INSERT 1 RING VAGINALLY FOR 3 WEEKS THEN REMOVE FOR 1 WEEK 01/19/2022 2 documented as of this encounter ED Notes * Derian Sorenson MD - 05/28/2022 9:49 PM CDT Chief Complaint Chief Complaint Patient presents with ??? Rash History of Present Illness 21-year-old female otherwise healthy here with complaints of recurrence of cellulitis. Patient several months ago had similar presentation of itchy erythematous papules diffusely throughout the body that ultimately became cellulitic requiring inpatient admission for IV antibiotics. At this time the patient feels well. The most concerning area of erythema is the left lateral thigh. No recent antibiotics. Medical History ALLERGIES: Allergies Allergen Reactions ??? Sulfa Antibiotics Hives ??? Vancomycin Infusion Reaction ??? Clindamycin Hives MEDICATIONS: Prior to Admission medications Medication Sig Start Date End Date Taking? Authorizing Provider amoxicillin-clavulanate (AUGMENTIN) 875-125 MG tablet Take 1 tablet (875 mg total) by mouth 2 (two)times daily for 10 days. 05/28/22 06/07/22 Yes Derian Sorenson MD Etonogestrel-Ethinyl Estradiol 0.12-0.015 MG/24HR RING INSERT 1 [...] of Systems Review of Systems Constitutional: Negative. Negative for fever. HENT: Negative. Respiratory: Negative for cough, chest tightness and shortness of breath. Cardiovascular: Negative. Negative for chest pain. Gastrointestinal: Negative for abdominal distention and abdominal pain. Musculoskeletal: Negative. Skin: Positive for rash. Neurological: Negative for seizures and syncope. Psychiatric/Behavioral: Negative. All other systems reviewed and are negative. Physical Exam Filed Vitals: 05/28/22 2108 BP: 114/67 Pulse: 79 Resp: 18 Temp: 97.8 ??F (36.6 ??C) TempSrc: Temporal SpO2: 100% Weight: 73.9 kg (163 lb) Height: 5' 3 (1.6 m) Physical Exam Vitals and nursing note reviewed. Constitutional: General: She is not in acute distress. Appearance: Normal appearance. She is not ill-appearing. HENT: Head: Normocephalic and atraumatic. Right Ear: External ear normal. Left Ear: External ear normal. Eyes: Extraocular Movements: Extraocular movements intact. Cardiovascular: Rate and Rhythm: Normal rate and regular rhythm. Pulses: Normal pulses. Pulmonary: Effort: Pulmonary effort is normal. No respiratory distress. Breath sounds: No stridor. Musculoskeletal: General: No swelling or tenderness. Normal range of motion. Cervical back: Normal range of motion. Skin: General: Skin is warm and dry. Capillary Refill: Capillary refill takes less than 2 seconds. Findings: No lesion or rash. Comments: Scattered punctate erythematous lesions that are pruritic in nature. Several of these appear to be approximately dime size due to surrounding erythema of the tissue. The area of erythema onthe left lateral thigh is 12 cm x 12 cm. No drainable fluid collection. Neurological: General: No focal deficit present. Mental Status: She is alert and oriented to person, place, and time. Mental status is at baseline. Cranial Nerves: No cranial nerve deficit. Psychiatric: Mood and Affect: Mood normal. Behavior: Behavior normal. Diagnostic Studies / Procedures ELECTROCARDIOGRAMS: No results found for this visit on 05/28/22. LABORATORY STUDIES: No results found for this visit on 05/28/22. IMAGING STUDIES No orders to display ED Course / Medical Decision Making 21-year-old female here with recurrent cellulitis especially after pruritic skin rashes. No clear pattern exist to fully delineate the cause of the pruritic rash however the left lateral thigh is notable for significant erythema requiring antibiotic. Augmentin was provided here and a prescription for the same at home.Patient discharged home in stable condition. Clinical Impression Cellulitis (Primary) Disposition: Discharge Derian Sorenson MD 05/29/22 0406 * Teressa Summers RN - 05/28/2022 9:17 PM CDT Provider discussed today's findings with the patient/family. The patient has been given informationregarding their treatment, follow up and concerning symptoms for which they should seek urgent or emergent attention. I have expressed the importance of seeking attention should there be any new, or w orsening symptoms or persistence of their condition. Patient verbalized understanding of the discharge instructions. * Teressa Summers RN - 05/28/2022 9:03 PM CDT Pt from home with cc of blisters and rashes all over her body for the past four months. States she would like to be evaluated. Has been admitted for same and was given ABX, but blisters are back. Pt states the blisters are itchy and burn. documented in this encounter Plan of Treatment Not on file documented as of this encounter Visit Diagnoses Diagnosis Cellulitis- Primary Cellulitis and abscess of unspecified site documented in this encounter Administered Medications Inactive Administered Medications - up to 3 most recent administrations Medication Order MAR Action Action Date Dose Rate Site amoxicillin-clavulanate (AUGMENTIN) 500-125 MG tablet 1,000 mg of amoxicillin 1,000 mg of amoxicillin (2 tablet), Oral, Once, 1 dose, On Sat05/28/22 at 2115 Given 05/28/2022 9:16 PM CDT 1,000 mg of amoxicillin documented in this encounter Active and Recently Administered Medications Times are shown in CDT. Scheduled Medication Order 05/26/2022 05/27/2022 05/28/2022 amoxicillin-clavulanate (AUGMENTIN) 500-125 MG tablet 1,000 mg of amoxicillin (COMPLETED) 1,000 mg of amoxicillin (2 tablet), Oral, Once, 1 dose, On Sat05/28/22 at 2115 2116 (Given - Provid er: Teressa Summers RN) documented in this encounter Care Teams Supervisor Pressing Department Relationship Specialty Start Date End Date Cortney Colbert NP [address] [place] [address] PCP - General NURSE PRACTITIONER 05/06/21 10/07/22 documented as of this encounter
--- OUTSIDE RECORDS SUMMARY | 2024-11-14 19:16 | XMS_ITS | Encounter Summary ---
Author Organization [facility] Address [address] [place] [address]. [place], [place] [address] [place] [address] Care Team Providers Care Social And Political Studies Professor Name Role Phone Fiona Parkinson MD Primary Care Pr ovider Unavailable Reason for Visit * Reason Onset Date Comments Results 10/30/2022 Encounter Details Date Type Department Care Team (Late st Contact Info) Description 10/30/2022 Telephone [facility] - [address] [place] [address] Fiona Parkinson MD Results Social History Tobacco Use Types Packs/Day [...] Coronavirus/COVID-19? No / Unsure 10/25/2022 9:52 AM GOLF COURSE LABORER documented as of this encounter Functional Status [...] documented in this encounter Progress Notes * Catherine Lacy MA - 10/30/2022 11:57 AM CST Called and informed pt that her CESAR for autoimmune disorders is negative. Dr. Ruvalcaba going to refer her to Neurology for further evaluation Referral placed into chart Pt verbalized understanding COURSE LABORER * Catherine Lacy MA - 10/30/2022 11:55 AM CST ----- Message from Fiona Parkinson MD sent at 10/29/2022 1:54 PM GOLF COURSE LABORER ----- CESAR for autoimmune disorders is negative. I am likely going to send her to neurology for further evaluation. Please let her know. COURSE LABORER documented in this encounter Plan of Treatment Not on file documented as of this encounter Visit Diagnoses Not on filedocumented in this encounter Additional Health Concerns Assessment Noted Time PHQ-9 Depression Total Score: 14 10/08/ 022 1:17 PM GOLF COURSE LABORER documented as of this encounter Care Teams Social And Political Studies Professor Relationship Specialty Start Date End Date Fiona Parkinson MD PCP - General FAMILY PRACTICE 10/08/22 04/14/23 documented as of this encounter
--- OUTSIDE RECORDS SUMMARY | 2024-11-14 19:16 | XMS_ITS | Encounter Summary ---
Author Organization [facility] Address [address] [place] [address]. [place], [place] [address] [place] [address] Care Team Providers Care Qa Intern Name Role Phone Cortney Colbert NP Primary Care Provider [phone] Encounter Details Date Type Department Care Team (Latest Contact Info) Description 12/19/2021 Travel Social History Tobacco Use Types Packs/Day [...] Coronavirus/COVID-19? No / Unsure 12/19/2021 7:36 PM BLACKSMITH SUPERVISOR documented as of this encounter Functional [...] Author Status No 07/07/2021 2:08 AM Alba Morton R N Active * Because of a physical, mental, or emotional condition, do you have difficulty doing errands alone such as visiting a doctor's office or shopping? Answer Date of Assessment Author Status No 07/07/2021 2:08 AM Alba Morton R N Active documented as of this encounter Mental Status * Because of a physical, mental, or emotional condition, do you have serious difficulty concentrating, remembering, or making decisions? Answer Entry Date Author Status No 07/07/2021 2:08 AM Alba Morton R N Active documented in this encounter Plan of Treatment Not on file documented as of this encounter Visit Diagnoses Not on filedocumented in this encounter Care Teams Qa Intern Relationship Specialty Start Date End Date Cortney Colbert NP [address] [place] [address] PCP - General NURSE PRACTITIONER 05/06/21 10/07/22 documented as of this encounter
--- OUTSIDE RECORDS SUMMARY | 2024-11-14 19:16 | XMS_ITS | Encounter Summary ---
Author Organization [facility] - [facility] Address [address] [place] [address]. [place], [place] [id number] [place] [address] Care Team Providers Care Cook Dinner Name Role Phone Fiona Parkinson MD Primary Care Pr ovider Unavailable Reason for Visit * Reason Comments Medication Management Rib Pain Pt states pain is wo rse Pain All over x 2 days Encounter Details Date Type Department Care Team (Late st Contact Info) Description 10/25/2022 10:00 AM CORN PICKER Office Visit [facility] Multispecialty Care - [address] [place] [address] Fiona Parkinson MD Medication Management; Rib Pain (Pt states pain is worse); Pain ( All over x 2 days) Social History Tobacco Use Types Packs/Day Years [...] Coronavirus/COVID-19? No / Unsure 10/25/2022 9:52 AM CORN PICKER documented as of this encounter Last Filed Vital Signs Vital Sign Reading Time Taken Comments Blood Pressure 126/82 10/25/2022 10:02 AM CORN PICKER Pulse 87 10/25/2022 10:02 AM CORN PICKER Temperature 37.1 ??C (98.7 ??F) 10/25/2022 10:[address] Respiratory Rate 18 10/25/2022 10:02 AM CORN PICKER Oxygen Saturation 99% 10/25/2022 10:02 AM CORN PICKER Inhaled Oxygen Concentration - - Weight 77.6 kg (171 lb) 10/25/2022 10:02 AM CORN PICKER Height 161.3 cm (5' 3.5 ) 10/25/2022 10:02 AM CS T Body Mass Index 29.82 10/25/2022 10:02 AM CORN PICKER documented in this encounter Functional Status * [...] * Patient Instructions* Fiona Parkinson MD - 10/25/2022 10:00 AM CORN PICKER Please stop the propranolol for now to see if your symptoms improve or resolve. Continue gabapentin for your pain. I have ordered labs and once they are back we will notify you. If this pain does not improve or worsens we may need to send you to neurology or rheumatology. PICKER documented in this encounter Progress Notes * Kishor Ann - 10/25/2022 10:00 AM CSTAddended by: KISHOR ANN on: 10/25/2022 07:34 PM Modules accepted: Orders PICKER * Fiona Parkinson MD - 10/25/2022 10:00 AM CST Angela Peterson is a 21-year-old female who presents today alone for evaluation of Chief Complaint Patient presents with ??? Medication Management ??? Rib Pain Pt states pain is worse ??? Pain All over x 2 days History of Present Illness: Patient presents today for follow-up -She was seen in the ER twice now due to ongoing pain on the left side of her chest that is gettingworse and she states she feels pain all over her body now and its in her arms and her wrists -She is very tearful because she cannot work and she needs her mom and her boyfriend to help her shower due to how much pain she is then -She was started on gabapentin for possible nerve type of pain as she was having allodynia of her chest; she is rated this medication last week and has been on it for about a week now but does not think she is seeing any improvement -Things like NSAIDs that include diclofenac, ibuprofen are not helping with her pain -She has no rash over her chest or her back; there is no concern for shingles -She started propranolol last month for her anxiety, migraines and for possible treatment of misophonia. However she states it is helping with her anxiety but she is not sure it is really helping with anything else; it is unclear whether this medication could possibly be causing any side effects -In the ER they did a chest x-ray which was normal, rib x-ray there were no fractures, she has had no trauma to her chest wall or her ribs -She was also having left upper quadrant pain which was likely due to her allodynia and even an ultrasound was done at [facility] and this was normal with no enlargement of her spleen or otherorgans -She states that she did develop a whole body rash back in January 2022 and was hospitalized for it but they could not find a cause; she was on IV antibiotics and it finally resolved but no biopsy was done -The doctors at that time were thinking she may possibly have an autoimmune disorder and she statesthat autoimmune disorders do run in the family Past Medical History: Diagnosis Date ??? Depression [...] twice a day 60 tablet 2 ??? cyclobenzaprine (FLEXERIL) 5 MG tablet Take 1 tablet (5 mg total) by mouth 3 (three) times daily as needed for Muscle Spasms. 30 tablet 0 ??? gabapentin (NEURONTIN) 100 MG capsule Take 1 capsule (100 mg total) by mouth nightly. 30 capsule 0 ? ? lidocaine (LIDODERM) 5 % Place 1 patch onto the skin daily for 30 days. Remove & Discard patch within 12 hours or as directed by 30 patch 0 ??? methylPREDNISolone, GHADA, (MEDROL DOSEPAK) 4 MG tablet Take 0.5 tablets (2 mg total) by mouth daily. 6 TABLETS ON DAY ONE, 5 TABLETS DAY TWO, 4 TABLETS DAY THREE, 3 TABLETS DAY FOUR, 2 TABLETS DAYFIVE, AND 1 TABLET DAY SIX 1 each 0 ??? ondansetron (ZOFRAN-ODT) 4 MG disintegrating tablet 1 tablet every 4-6 hours as needed for nausea/vomiting 20 tablet 0 ??? propranolol (INDERAL) 10 MG tablet Take 1 tablet (10 mg total) by mouth 2 (two) times daily. 60tablet 2 ??? albuterol sulfate HFA 108 (90 Base) MCG/ACT inhaler ??? diclofenac EC (VOLTAREN) 50 MG tablet Take 1 tablet (50 mg total) by mouth 3 (three) times daily. 30 tablet 0 ??? meloxicam (MOBIC) 15 MG tablet Take 1 tablet (15 mg total) by mouth daily for 7 days. 7 tablet 0 No current facility-administered medications for this [...] vomiting. Objective / Physical Exam: Filed Vitals: 10/25/22 1002 BP: 126/82 Pulse: 87 Resp: 18 Temp: 98.7 ??F (37.1 ??C) TempSrc: Temporal SpO2: 99% Weight: 77.6 kg (171 lb) Height: 5' 3.5 (1.613 m) Body mass index is 29.82 kg/m??. Physical Exam Vitals reviewed. Constitutional: Appearance: She is well-developed. She is not toxic-appearing or diaphoretic. Comments: Patient is tearful on examination HENT: Head: Normocephalic and atraumatic. Mouth/Throat: Oropharynx [...] No wheezing, rhonchi or rales. Chest: Comments: She still has tenderness to palpation along her chest wall even with light touch Abdominal: General: Bowel sounds are normal. There is no distension. Palpations: Abdomen is soft. Tenderness: There is no abdominal tenderness. There is no guarding. Musculoskeletal: Cervical back: Normal range of motion and neck supple. Comments: Unable to lift her left arm well due to pain and weakness Skin: General: Skin is warm. Neurological: Mental Status: She is alert and oriented to person, place, and time. Psychiatric: Behavior: Behavior normal. Lab / In Office Testing / Radiograph review: No results found for this visit on 10/25/22. Assessment/Plan: 1. Muscle pain CESAR W/REFLEX CK (CPK) C-REACTIVE PROTEIN CANCELED: DNA ANTIBODY, [place]/DBL STRAN 2. Arthralgia of both hands RHEUMATOID FACTOR, QUANT CYCLIC CITRULLINATED PEPTIDE (CCP)ANTIBODY(IGG) 3. Allodynia 4. Misophonia -The patient presents today with worsening pain of her chest wall and now she is also having pain in her arms and her wrists; ordered labs today for an autoimmune work-up; an ESR was already checked in the ER and that was normal; she is already had a thyroid level checked last month and that was also normal -It is very unclear where her pain is coming from and why this is occurring however did advise her to stop using propranolol as this was the most recent medication she started last month and her painstarted after this -I checked her skin on her chest wall on her back and there is no rash; there is no concern for shingles -She may have a neurological issue as well as she also has misophonia; we will see what her labs come back as and determine if she needs to see rheumatology or neurology at this point I spent 30 minutes today reviewing the patient's medical record, obtaining history, performing an exam, ordering medications, tests, and/or procedures, documenting in the medical record and counseling and educating the patient. Followup Plan: Return in about 4 weeks (around 11/22/2022) for follow-up. Instructions on the sign/symptoms of worsening [...] to the patient's verbalized satisfaction. Patient Instructions Please stop the propranolol for now to see if your symptoms improve or resolve. Continue gabapentin for your pain. I have ordered labs and once they are back we will notify you. If this pain does not improve or worsens we may need to send you to neurology or rheumatology. Fiona Parkinson MD Family Medicine [facility] PICKER documented in this encounter Plan of Treatment Not on file documented as of this encounter Procedures Procedure Name Priority Date/Time Associated Diagnosis Comments ANTINUCLEAR ANTIBODY WI RFX Routine 10/25/2022 11:12 AM CORN PICKER Muscle pain RHEUMATOID FACTOR, QUANT Routine 10/25/2022 11:12 AM CORN PICKER Arthralgia of both hands CYCLIC CITRULLINATED PEPTIDE (CCP)ANTIBODY(IGG) Routine 10/25/2022 11:12 AM CORN PICKER Muscle pain Arthralgia of both hands C-REACTIVE PROTEIN Routine 10/25/2022 11 :12 AM CORN PICKER Muscle pain CK (CPK) Routine 10/25/2022 11:12 AM CORN PICKER Muscle pain documented in this encounter Results * CYCLIC CITRULLINATED PEPTIDE (CCP)ANTIBODY(IGG) (10/25/2022 11:12 AM CORN PICKER) CITRULLINE PEPTIDE ANTIBODY <16 UNITS [employer] [facility] Comment: Reference Range Negative: ?<20 Weak Positive: ? 20-39 Moderate Positive: ?? 40-59 Strong Positive: ? >59 10/25/2022 11:1 2 AM CORN PICKER 10/27/2022 3:18 AM CORN PICKER Narrative Resulting Agency Comment Performing Organization Information: ?Site ID: [place] ?Name: [facility] ?Address: [address] [place] [address] ?Director: Jeff Aguilar D.O., MPH us Fiona Parkinson MD LABORATORY Final Result Performing Organization Address City/[facility]/ZIP Co de Phone Number [facility] [address] [place] [address], * RHEUMATOID FACTOR, QUANT (10/25/2022 11:12 AM CORN PICKER) RHEUMATOID FACTOR <10 <15 IU/ML 10/25/2022 8:45 PM CORN PICKER [facility] 10/25/2022 11:1 2 AM CORN PICKER us Fiona Parkinson MD LABORATORY Final Result Performing Organization Address [facility] Co de Phone Number [facility] [address] [place] [address], [id number] * (ABNORMAL) C-REACTIVE PROTEIN (10/25/2022 11:12 AM CORN PICKER) C-REACTIVE PROTEIN 1.06(H) <0.30 mg/dL 10/25/2022 8:30 PM CORN PICKER [facility] 10/25/2022 11:1 2 AM CORN PICKER Fiona Parkinson MD LABORATORY Final Result Performing Organization Address [facility]/ZIP Co de Phone Number [facility] [address] [place] [address], * (ABNORMAL) CK (CPK) (10/25/2022 11:12 AM CORN PICKER) CPK 20(L) 26 - 192 U/L 10/25/2022 8:42 PM CORN PICKER [facility] 10/25/2022 11:1 2 AM CORN PICKER Fiona Parkinson MD LABORATORY Final Result Performing Organization Address City/[facility] Co de Phone Number -[facility] [address] [facility] [place] [address], [place] [phone] * CESAR W/REFLEX (10/25/2022 11:12 AM CORN PICKER) CESAR 0.3 10/29/2022 12:21 PM CORN PICKER [facility] Comment: NEGATIVE: <0.7 RATIO CESAR PROFILE AND TITER NOT PERFORMED THE CESAR SCREEN TESTS FOR THE FOLLOWING ANTIBODIES BY EIA: SSA1 (RO), SSB1 (LA), LO, SCL70, JO1, CENTROMERE, VALVE FITTER HISTONE MUST BE ORDERED SEPARATELY DNA (DS) ANTIBODY <0.6 IU/ML 12:21 PM CORN PICKER [facility] Comment: NEGATIVE: <10 IU/mL EQUIVOCAL: 10 to 15 IU/mL POSITIVE: >15 IU/mL THIS QUANTITATIVE ASSAY IS CALIBRATED TO THE [employer]'S WO/80 STANDARD. THE LEVEL OF dsDNA AUTOANTIBODY GERERALLY CORRELATES WITH THE LEVEL OF DISEASE ACTIVITY IN SYSTEMIC LUPUS ERYTHMATOSUS 10/25/2022 11:1 2 AM CORN PICKER Fiona Parkinson MD LABORATORY Final Result Performing Organization Address City/[facility] Co de Phone Number [facility] [address] [place] [address], [place] [phone] documented in this encounter Visit Diagnoses Diagnosis Muscle pain- Primary Mylagia and myositis, unspecified Arthralgia of both hands Allodynia Disturbance of skin sensation Misophonia documented in this encounter Additional Health Concerns Assessment Noted Time PHQ-9 Depression Total Score: 14 022 1:17 PM CORN PICKER documented as of this encounter Care Teams Cook Dinner Relationship Specialty Start Date End Date Fiona Parkinson MD PCP - General FAMILY PRACTICE 10/08/22 04/14/23 documented as of this encounter
--- OUTSIDE RECORDS SUMMARY | 2024-11-14 19:16 | XMS_ITS | Encounter Summary ---
Author Organization [facility] - [facility] Address [address] [place] [address]. [place], [place] [id number] [place] [address] Care Team Providers Care Trackless Trolley Driver Name Role Phone Fiona Parkinson MD Primary Care Pr ovider Unavailable Reason for Visit * Reason Comments Sore Throat Stomach Pains Encounter Details Date Type Department Care Team (Late st Contact Info) Description 10/18/2022 3:00 PM HEARING THERAPIST Office Visit [facility] Multispecialty Care - [address] [place] [address] Fiona Parkinson MD Sore Throat; Stomach Pains Social History Tobacco Use Types Packs/Day Years [...] Coronavirus/COVID-19? No / Unsure 10/20/2022 3:19 AM HEARING THERAPIST documented as of this encounter Last Filed Vital Signs Vital Sign Reading Time Taken Comments Blood Pressure - - Pulse - - Temperature - - Respiratory Rate - - Oxygen Saturation - - Inhaled Oxygen Concentration - - Weight - - Height 161.3 cm (5' 3.5 ) 10/18/2022 3:03 PM HEARING THERAPIST Body Mass Index - - documented in [...] * Patient Instructions* Fiona Parkinson MD - 10/18/2022 3:00 PM HEARING THERAPIST Your mono spot testing in the office was negative. Please gargle with salt water. Your strep culture results will take a day or so to come back. I will notify you of the results. Rest. No heavy lifting. Please set up an appointment for a nursing visit to have your CBC drawn tomorrow. If your left upper quadrant pain worsens please go to the ER. ING THERAPIST ING THERAPIST documented in this encounter Progress Notes * Fiona Parkinson MD - 10/18/2022 3:00 PM CST Angela Peterson is a 21-year-old female who presents today accompanied by boyfriend for evaluation of Chief Complaint Patient presents with ??? Sore Throat ??? Stomach Pains History of Present Illness: Here today for a sore throat and abdominal pain - she states for the past few days she has been having a sore throat and fatigue - she thinks she may have strep because other people at work also have a sore throat - she has not had mono before - she was also in the office recently due to left sided chest pain that was allodynia even with very light touch - she was prescribed gabapentin but has not picked it up yet - now she is complaining of left upper quadrant pain - it's quite painful for her - no vomiting - she did have a reduced appetite last week Past Medical History: Diagnosis Date ??? Depression [...] (three) times daily. 30 tablet 0 ??? gabapentin (NEURONTIN) 100 MG capsule Take 1 capsule (100 mg total) by mouth nightly. 30 capsule 0 ??? ondansetron (ZOFRAN-ODT) 4 MG disintegrating tablet 1 tablet every 4-6 hours as needed for nausea/vomiting 20 tablet 0 ??? propranolol (INDERAL) 10 MG tablet Take 1 tablet (10 mg total) by mouth 2 (two) times daily. 60tablet 2 ??? methylPREDNISolone, GHADA, (MEDROL DOSEPAK) 4 MG tablet Take 0.5 tablets (2 mg total) by mouth daily. 6 TABLETS ON DAY ONE, 5 TABLETS DAY TWO, 4 TABLETS DAY THREE, 3 TABLETS DAY FOUR, 2 TABLETS DAYFIVE, AND 1 TABLET DAY SIX 1 each 0 No current facility-administered medications for this [...] and shortness of breath. Cardiovascular: Negative for palpitations. Gastrointestinal: Negative for vomiting. Objective / Physical Exam: Filed Vitals: 10/18/22 1503 Height: 5' 3.5 (1.613 m) Body mass index is 29.64 kg/m??. Physical Exam Vitals reviewed. Constitutional: General: She is not in acute distress. Appearance: Normal appearance. She is well-developed. She is not ill-appearing, toxic-appearing or diaphoretic. HENT: Head: Normocephalic and atraumatic. Nose: No rhinorrhea. Mouth/Throat: Mucous membranes are moist. Posterior oropharyngeal erythema present. No oropharyngeal exudate. Eyes: General: Right eye: No discharge. Left [...] or rales. Chest: Comments: She still has TTP over the left chest even with very light touch Abdominal: General: Bowel sounds are normal. There is no distension. Palpations: Abdomen is soft. There is no mass. Tenderness: There is abdominal tenderness (in LUQ). There is no guarding. Musculoskeletal: Cervical back: Normal range of motion and neck supple. Skin: General: Skin is warm. Neurological: Mental Status: She is alert and oriented to person, place, and time. Psychiatric: Mood and Affect: Mood normal. Behavior: Behavior normal. Lab / In Office Testing / Radiograph review: Results for orders placed or performed in visit on 10/18/22 HETEROPHILE ANTIBODIES,SCREEN Result Value Ref Range HETEROPHILE ANTIBODIES NEGATIVE NEGATIVE Internal Control: VALID VALID Assessment/Plan: 1. Sore throat HETEROPHILE ANTIBODIES,SCREEN CULTURE STREP A (MG/SJS/SMD Only) CBC W/DIFF AUTOMATED CANCELED: RAPID STREP A 2. Other fatigue HETEROPHILE ANTIBODIES,SCREEN 3. LUQ pain US ABD LIMITED CBC W/DIFF AUTOMATED - we do not have any rapid strep swabs in the office today so obtained a strep culture; advised that this can take a day or so for the result to come back - CBC ordered - mono spot testing was negative in the office today - abdominal ultrasound ordered; advised if any worsening pain then she is to go to the ER for further evaluation and management; she voiced understanding - advised to drink plenty of fluids - gargle with salt water in the meantime - wear a mask to prevent the spread of any infection since she is having a sore throat I spent 30 minutes today reviewing the patient's medical record, obtaining history, performing an exam, ordering medications, tests, and/or procedures, documenting in the medical record, counseling and educating the patient and reviewing and communicating test results. Followup Plan: No follow-ups on file. Instructions on the sign/symptoms of worsening problems [...] to the patient's verbalized satisfaction. Patient Instructions Your mono spot testing in the office was negative. Please gargle with salt water. Your strep culture results will take a day or so to come back. I will notify you of the results. Rest. No heavy lifting. Please set up an appointment for a nursing visit to have your CBC drawn tomorrow. If your left upper quadrant pain worsens please go to the ER. Fiona Parkinson MD Family Medicine [facility] ING THERAPIST documented in this encounter Plan of Treatment Not on file documented as of this encounter Procedures Procedure Name Priority Date/Time Associated Diagnosis Comments HETEROPHILE ANTIBODIES,SCREEN Routine 10/18/2022 Sore throat Other fatigue documented in this encounter Results * (ABNORMAL) CBC W/DIFF AUTOMATED (10/19/2022 2:10 PM HEARING THERAPIST) WBC 5.9 4.0 - 10.8 x10'3/uL 10/19/2022 8:05 PM HEARING THERAPIST [facility] RBC 4.28 4.10 - 5.40 x10'6/uL 10/19/2022 8:05 PM HEARING THERAPIST [facility] HGB 11.7(L) 12.0 - 16.0 G/DL 10/19/2022 8:05 PM HEARING THERAPIST [facility] HCT 36.5 36.0 - 47.0 % 10/19/2022 8:05 PM HEARING THERAPIST [facility] MCV 85.3 78.0 - 100.0 FL 10/19/2022 8:05 PM HEARING THERAPIST [facility] MCH 27.3 27.0 - 31.0 PG 10/19/2022 8:05 PM HEARING THERAPIST [facility] MCHC 32.1(L) 33.0 - 36.0 G/DL 10/19/2022 8:05 PM [facility] RDW 14.2 11.5 - 14.5 % 10/19/2022 8:05 PM [facility] PLT 178 150 - 350 x10'3/uL 10/19/2022 8:05 PM [facility] MPV 13.6(H) 7.4 - 10.4 FL 10/19/2022 8:05 PM [facility] IMMATURE GRANS % 0.2 % 10/19/2022 8:07 PM [facility] NEUTROPHILS % 66.1 % 10/19/2022 8:07 PM [facility] EOSINOPHILS % 1.2 % 10/19/2022 8:07 PM [facility] BASOPHILS % 0.5 % 10/19/2022 8:07 PM [facility] LYMPHOCYTES % 26.1 % 10/19/2022 8:07 PM [facility] MONOCYTES % 5.9 % 10/19/2022 8:07 PM [facility] ABS. IMMATURE GRANULOCYTES 0.01 0.00 - 0.03 x10'3/uL 10/19/2022 8:07 PM [facility] ABS. NEUTROPHILS 3.90 1.60 - 8.30 x10'3/uL 10/19/2022 8:07 PM [facility] ABS. EOSINOPHILS 0.07 0.00 - 0.40 x10'3/uL 10/19/2022 8:07 PM [facility] ABS. BASOPHILS 0.03 0.00 - 0.20 x10'3/uL 10/19/2022 8:07 PM [facility] ABS. LYMPHOCYTES 1.54 0.80 - 4.70 x10'3/uL 10/19/2022 8:07 PM [facility] ABS. MONOCYTES 0.35 0.00 - 1.50 x10'3/uL 10/19/2022 8:07 PM [facility] RBC MORPHOLOGY NORMAL 10/19/2022 8:07 PM [facility] PLT MORPH. NORMAL 10/19/2022 8:07 PM [facility] PLT EST. NORMAL x10'3/uL 10/19/2022 8:07 PM HEARING THERAPIST [facility] DIFFERENTIAL TYPE AUTOMATED DIFFERENTIAL 10/19/2022 8:07 PM HEARING THERAPIST [facility] 10/19/2022 2:10 PM HEARING THERAPIST Fiona Parkinson MD LABORATORY Final Result [facility] [address] [place] [address], [place] [phone] * CULTURE STREP A (MG/SJS/SMD Only) (10/19/2022 2:10 PM HEARING THERAPIST) SPEC DESCRIPTION THROAT 10/19/2022 2:10 PM HEARING THERAPIST [facility] SPECIAL REQUESTS NO SPECIAL REQUEST 10/19/2022 2:10 PM HEARING THERAPIST [facility] CULTURE RESULT NO STREPTOCOCCUS PYOGENES (GROUP A) ISOLATED 10/22/2022 8:45 AM HEARING THERAPIST [facility] THROAT SWAB / Unknown 10/19/2022 2:10 PM HEARING THERAPIST 10/19/2022 9:04 PM HEARING THERAPIST Fiona Parkinson MD MICROBIOLOGY - G ENERAL ORDERABLES Final Result [facility] [address] [place] [address], [place] [phone] [id number] * HETEROPHILE ANTIBODIES,SCREEN (10/18/2022) HETEROPHILE ANTIBODIES NEGATIVE NEGATIVE [id number] [place] Internal Control: VALID VALID [address] [place] 10/18/2022 Fiona Parkinson MD LABORATORY Final Result [address] [place] [address] [place] [address], [place] [phone] documented in this encounter Visit Diagnoses Diagnosis Sore throat- Primary Acute pharyngitis Other fatigue LUQ pain Abdominal pain, left upper quadrant documented in this encounter Additional Health Concerns Assessment Noted Time PHQ-9 Depression Total Score: 14 022 1:17 PM HEARING THERAPIST documented as of this encounter Care Teams Trackless Trolley Driver Relationship Specialty Start Date End Date Fiona Parkinson MD PCP - General FAMILY PRACTICE 10/08/22 04/14/23 documented as of this encounter
--- OUTSIDE RECORDS SUMMARY | 2024-11-14 19:16 | XMS_ITS | Encounter Summary ---
Author Organization [facility] Address [address] [place] [address]. [place], [place] [address] [place] [address] Care Team Providers Care Customer Program Manager Name Role Phone Fiona Parkinson MD Primary Care Pr ovider Unavailable Reason for Referral * Consultation (Routine) - Closed Specialty Diagnoses / Procedures Referred By Contac t Referred To Contact NEUROLOGY Diagnoses Misophonia Tingling of both upper extremities Allodynia Muscle pain Procedures OFFICE/OUTPT VISIT,NEW,LEVL III OFFICE/OUTPT VISIT,NEW,LEVL IV OFFICE/OUTPT VISIT,NEW,LEVL V OFFICE/OUTPT VISIT,EST,LEVL III OFFICE/OUTPT VISIT,EST,LEVL IV OFFICE/OUTPT VISIT,EST,LEVL V Fiona Parkinson MD [facility] Medical [facility] Multispecialty Care - [facility] [place] [address] [facility], [address] [place] [address] Phone: tel: Referral ID Status Reason Start Date Expiration Date V isits Requested Visits Authorized [id number] Closed Specialty Services 10/29/2022 11/29/2023 99 99 NING CENTER INSTRUCTOR Encounter Details Date Type Department Care Team (Late st Contact Info) Description 10/29/2022 Orders Only [facility] Mult[facility]pecial[facility] Care - [address] [place] [address] Fiona Parkinson MD Social History Tobacco Use Types Packs/Day Years [...] Coronavirus/COVID-19? No / Unsure 10/25/2022 9:52 AM LEARNING CENTER INSTRUCTOR documented as of this encounter Functional Status [...] Progress Notes * Fiona Parkinson MD - 10/29/2022 1:55 PM CST Referral placed to neurology. NING CENTER INSTRUCTOR documented in this encounter Plan of Treatment Scheduled Referrals Name Type Priority Associated Diagnoses Orde r Schedule Ambulatory referral to Neurology (OTHER) Referral Routine Misophonia Tingling of both upper extremities Allodynia Muscle pain Ordered: 10/29/2022 documented as of this encounter Visit Diagnoses Diagnosis Misophonia- Primary Tingling of both upper extremities Allodynia Disturbance of skin sensation Muscle pain Mylagia and myositis, unspecified documented in this encounter Additional Health Concerns Assessment Noted Time PHQ-9 Depression Total Score: 14 022 1:17 PM LEARNING CENTER INSTRUCTOR documented as of this encounter Care Teams Customer Program Manager Relationship Specialty Start Date End Date Fiona Parkinson MD PCP - General FAMILY PRACTICE 10/08/22 04/14/23 documented as of this encounter
--- OUTSIDE RECORDS SUMMARY | 2024-11-14 19:16 | XMS_ITS | Encounter Summary ---
Author Organization [facility] Address [address] [place] [address]. [place], [place] [id number] [place] [address] Care Team Providers Care Milieu Counselor Name Role Phone Fiona Parkinson MD Primary Care Pr ovider Unavailable Reason for Visit * Reason Comments Rib Pain improving Encounter Details Date Type Department Care Team (Late st Contact Info) Description 11/19/2022 3:20 PM DUST OPERATOR Office Visit [facility] Multispecialty Care - [address] [place] [address] Fiona Parkinson MD Rib Pain (improving) Social History Tobacco Use Types Packs/Day Years [...] Coronavirus/COVID-19? No / Unsure 11/19/2022 3:27 PM DUST OPERATOR documented as of this encounter Last Filed Vital Signs Vital Sign Reading Time Taken Comments Blood Pressure 112/68 11/19/2022 3:45 PM DUST OPERATOR Pulse 78 11/19/2022 3:45 PM DUST OPERATOR Temperature 36.7 ??C (98.1 ??F) 11/19/2022 3:45 PM CS T Respiratory Rate 16 11/19/2022 3:45 PM DUST OPERATOR Oxygen Saturation 98% 11/19/2022 3:45 PM DUST OPERATOR Inhaled Oxygen Concentration - - Weight 77.6 kg (171 lb) 11/19/2022 3:45 PM DUST OPERATOR Height 161.3 cm (5' 3.5 ) 11/19/2022 3:45 PM DUST OPERATOR Body Mass Index 29.82 11/19/2022 3:45 PM DUST OPERATOR documented in this encounter Functional Status [...] * Patient Instructions* Fiona Parkinson MD - 11/19/2022 3:20 PM DUST OPERATOR Please call neurology to see if you can get on the cancellation list to get an appointment sooner than February 2023. You are due for a physical and pap smear. OPERATOR documented in this encounter Progress Notes * Fiona Parkinson MD - 11/19/2022 3:20 PM CST Images from the original note were not included. Angela Peterson is a 21-year-old female who presents today alone for evaluation of Chief Complaint Patient presents with ??? 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 Depression [...] 1.0 times per week Types: Marijuana Health Maiteparthace due was reviewed. Medications: Current Outpatient Medications Medication Sig Dispense Refill ? ? lidocaine (LIDODERM) 5 % Place 1 patch onto the skin daily for 30 days. Remove & Discard patch within 12 hours or as directed by 30 patch 0 ??? albuterol sulfate HFA 108 (90 Base) [...] the HPI also including: Review of Systems Cardiovascular: Negative for chest pain, palpitations and leg swelling. Gastrointestinal: Negative for abdominal pain, nausea and vomiting. Objective / Physical Exam: Filed Vitals: 11/19/22 1545 BP: 112/68 Pulse: 78 Resp: 16 Temp: 98.1 ??F (36.7 ??C) TempSrc: Temporal SpO2: 98% Weight: 77.6 [...] sounds. No wheezing, rhonchi or rales. Chest: Abdominal: General: Bowel sounds are normal. There [...] No results found for this visit on 11/19/22. Assessment/Plan: 1. Allodynia 2. Chest wall pain - her chest wall pain has improved, she still has slight pain but overall it's getting better - she stopped all of her meds to see if it could have been causing her allodynia - she wants to eventually restart propranolol again but will wait a few weeks before doing this to make sure her pain is improving - she also started to have arthralgias of her hands; she has an appointment with neuro in February 2023; autoimmune testing negative - wrote a letter for work with restrictions x 1 month I spent 25 minutes today reviewing the patient's medical record, obtaining history, performing an exam, documenting in the medical record and counseling and educating the patient. Followup Plan: Return in about 6 weeks (around 12/31/2022) for annual + pap. Instructions on the sign/symptoms of worsening problems [...] the patient's verbalized satisfaction. Patient Instructions Please call neurology to see if you can get on the cancellation list to get an appointment sooner than February 2023. You are due for a physical and pap smear. Fiona Parkinson MD Family Medicine [facility] OPERATOR documented in this encounter Plan of Treatment Not on file documented as of this encounter Visit Diagnoses Diagnosis Allodynia- Primary Disturbance of skin sensation Chest wall pain Painful respiration documented in this encounter Additional Health Concerns Assessment Noted Time PHQ-9 Depression Total Score: 14 022 1:17 PM DUST OPERATOR documented as of this encounter Care Teams Milieu Counselor Relationship Specialty Start Date End Date Fiona Parkinson MD PCP - General FAMILY PRACTICE 10/08/22 04/14/23 documented as of this encounter
--- OUTSIDE RECORDS SUMMARY | 2024-11-14 19:16 | XMS_ITS | Encounter Summary ---
Author Organization [facility] Address [address] [place] [address]. [place], [place] [address] [place] [address] Care Team Providers Care Protective Signal Operations Supervisor Name Role Phone Fiona Parkinson MD Primary Care Pr ovider Unavailable Encounter Details Date Type Department Care Team (Latest Contact Info) Description 10/18/2022 Travel Social History Tobacco Use Types Packs/Day [...] Coronavirus/COVID-19? No / Unsure 10/18/2022 3:01 PM CLOTHING CUTTER documented as of this encounter Functional Status [...] Depression Total Score: 14 022 1:17 PM CLOTHING CUTTER documented as of this encounter Care Teams Protective Signal Operations Supervisor Relationship Specialty Start Date End Date Fiona Parkinson MD PCP - General FAMILY PRACTICE 10/08/22 04/14/23 documented as of this encounter
--- OUTSIDE RECORDS SUMMARY | 2024-11-14 19:16 | XMS_ITS | Encounter Summary ---
Author Organization [facility] Address [address] [place] [address]. [place] [address] [place] [address] Care Team Providers Care Entry Level Sales Representative Name Role Phone Cortney Colbert NP Primary Care Provider [phone] Reason for Referral * Imaging (Emergency) - Closed Specialty Diagnoses / Procedures Referred By Contac t Referred To Contact RADIOLOGY Procedures US PELVIC NON OB COMP TA+TV US PELVIC NON OB COMP TA W DOPPLER FOR TORSION Ayan Gale MD,PHD [address] [place] [id number] Phone: tel: fax: Referral ID Status Reason Start Date Expiration Date Visits Re quested Visits Authorized [id number] Closed 07/06/2021 08/06/2022 1 1 Reason for Visit * Reason Comments Abdominal Pain Encounter Details Date Type Department Care Team (Late st Contact Info) Description 07/06/2021 3:07 PM CDT - 07/06/2021 11:40 PM CDT Emergency [facility] Emergency Room [id number] [place] [id number] Ayan Gale MD,PHD [address] [place] [id number] Ciro Baum MD [address] [place] [id number] Abdominal Pain Discharge Disposition: Transfer to Acute [...] Sign Reading Time Taken Comments Blood Pressure 126/74 07/06/2021 11:36 PM CDT Pulse 71 07/06/2021 3:10 PM CDT Temperature 36.8 ??C (98.2 ??F) 07/06/2021 3:10 PM CD T Respiratory Rate 18 07/06/2021 3:10 PM CDT Oxygen Saturation 99% 07/06/2021 11:36 PM CDT Inhaled Oxygen Concentration - - Weight 72.6 kg (160 lb) 07/06/2021 3:10 PM CDT Height 160 cm (5' 3 ) 07/06/2021 3:10 PM CDT Body Mass Index 28.34 07/06/2021 3:10 PM CDT documented in this encounter Medications at Time [...] as of this encounter ED Notes * Ciro Baum MD - 07/06/2021 7:47 PM CDT Assumed care from Dr Gale at approx 1900 - briefly patient is a 20 yo F pw severe postcoital pelvic pain. Signed out to followup US & appropriate disposition US demonstrating flow to bilateral ovaries however with swelling to L ovary & heterogenous texture there is clinical concern for intermittent torsion 2049: no surgical beds available at [facility]. No beds at [facility] system 2058: Discussed with [facility] transfer line - no beds at [facility]. There are beds at [facility], await call back from Dr. Kilgore (OBGYN manager of distribution) 2109: One possible bed at [facility], await callback 2121: Discussed with Dr Cheng - Ashley who requests ED to ED transfer for further evaluation 2149: Discussed Dr. Park ([facility] OBGYN manager of distribution) - accepting physician for transfer Ciro Baum MD 07/06/21 7248 * Yenny Ritchie RN - 07/06/2021 6:52 PM CDT States pain tolerable at rest, waiting on ultrasound. Boyfriend at bedside * Ayan Gale MD,PHD - 07/06/2021 3:20 PM CDT EMERGENCY DEPARTMENT ENCOUNTER Chief Complaint Chief Complaint Patient presents with ??? Abdominal Pain History of Present Illness Provider at Bedside Date/Time Event User Comments 07/06/21 1510 Provider at Bedside Assessing Patient IRON GALEANTON Singh 20 year-old female presenting with pelvic pain. The onset was sudden. The duration is since just prior to arrival. It is primarily located in in the right pelvis and lower quadrant. It is described as sharp. The severity is very severe. The patient states that it started during sexual intercourse. Medical History ALLERGIES: Allergies Allergen Reactions ??? Sulfa Antibiotics Hives ??? Clindamycin Hives MEDICATIONS: Prior to Admission medications Medication Sig Start Date End Date Taking? Authorizing Provider busPIRone 5 MG tablet Take 5 mg by mouth 3 (three) times daily as needed. Doc Abstract sertraline 25 MG tablet Take [...] per week Types: Methamphetamines Review of Systems Constitutional: Negative for chills and fever. Gastrointestinal: see HPI Genitourinary: see HPI All other systems reviewed and are negative except as in HPI and as noted above Physical Exam Filed Vitals: 07/06/21 1700 07/06/21 1730 07/06/21 1800 07/06/21 1845 BP: Pulse: Resp: Temp: TempSrc: SpO2: 96% 99% 98% 99% Weight: Height: CONSTITUTIONAL: Patient is awake, alert, severe distress, tearful HEAD AND FACE: Normocephalic, atraumatic EYES: Normal sclera, extraocular motions grossly normal NECK: Supple, no obvious asymmetry CARDIOVASCULAR: RRR, normal S1-S2, no clicks murmurs rubs or gallops are appreciated RESPIRATORY: No respiratory distress or tachypnea, clear to auscultation bilaterally without rales,rhonchi, wheezes ABDOMEN: Soft, right lower quadrant tenderness PELVIC: Performed with female nurse hotel associate present, normal external genitalia, no lacerations orother external evidence of trauma, normal appearance of cervix, no cervical motion tenderness, painlocalized over the right adnexa NEUROLOGIC: GCS 15, CN2-12 grossly intact, moves all extremities EXTREMITIES: Warm, no edema Diagnostic Studies / Procedures LABORATORY STUDIES: Results for orders placed or performed during the hospital encounter of 07/06/21 CBC W/DIFF AUTOMATED Result Value Ref Range WBC 5.9 4.4 - 11.0 x10'3/uL RBC 4.71 4.50 - 5.10 x10'6/uL HGB 13.0 12.3 - 15.3 G/DL HCT 40.4 35.9 - 44.6 % MCV 85.8 80.0 - 96.0 FL MCH 27.6 25.3 - 30.9 PG MCHC 32.2 31.0 - 34.1 G/DL RDW 13.3 12.4 - 15.1 % PLT 196 151 - 353 x10'3/uL MPV 12.9 (H) 9.6 - 12.0 FL RBC MORPHOLOGY NORMAL PLT MORPH. NORMAL WBC MORPHOLOGY NORMAL LYMPHOCYTES 24.1 15.8 - 45.0 % NEUTROPHILS 68.8 42.1 - 71.9 % MONOCYTES 6.1 5.7 - 12.5 % EOSINOPHILS 0.5 0.0 - 5.6 % BASOPHILS 0.3 0.0 - 1.3 % ABS. NEUTROPHILS TOTAL 4.08 1.40 - 6.00 x10'3/uL IMMATURE GRANS 0.2 0.0 - 0.5 % ABS. LYMPHOCYTES 1.43 0.80 - 4.70 x10'3/uL COMPREHENSIVE METABOLIC PANEL Result Value Ref Range GLUCOSE 98 70 - 99 MG/DL BUN 14 7 - 18 MG/DL CREATININE S/P/B 0.75 0.55 - 1.02 MG/DL SODIUM 139 136 - 145 MMOL/L POTASSIUM 3.8 3.5 - 5.1 MMOL/L CHLORIDE S/P/B 105 100 - 108 MMOL/L CO2 28.7 21 - 32 MMOL/L CALCIUM 9.2 8.5 - 10.1 MG/DL BILIRUBIN TOTAL S/P/B 0.3 0.2 - 1.2 MG/DL TOTAL PROTEIN S/P/B 7.5 6.4 - 8.2 G/DL ALBUMIN S/P/B 3.9 3.4 - 5.0 G/DL AST 14 (L) 15 - 37 U/L ALT 26 14 - 55 U/L ALKALINE PHOSPHATASE S/P/B 61 50 - 136 U/L ANION GAP 5.3 5 - 15 MMOL/L BUN CREATININE RATIO 18.7 6 - 26 A/G RATIO 1.1 1.0 - 2.0 RATIO eGFR Non-Afr. Amer. >90 >90 ML/MIN/1.73 M2 eGFR Afr. Amer. >90 >90 ML/MIN/1.73 M2 MAGNESIUM Result Value Ref Range MAGNESIUM 2.3 1.8 - 2.4 MG/DL PHOSPHORUS, INORGANIC PHOSPHATE Result Value Ref Range PHOSPHORUS 3.8 2.5 - 4.9 MG/DL LACTIC ACID Result Value Ref Range LACTIC ACID 0.4 0.4 - 2.0 MMOL/L URINALYSIS, AUTO, COMPLETE Result Value Ref Range COLOR (U) YELLOW TRANSPARENCY CLEAR Specific Markle (U) 1.010 1.000 - 1.030 U PH 6.0 5.0 - 9.0 LEUKOCYTE ESTERASE NEGATIVE NEGATIVE NITRITES NEGATIVE NEGATIVE PROTEIN (U) NEGATIVE NEGATIVE URINE GLUCOSE NEGATIVE NEGATIVE U KETONES NEGATIVE NEGATIVE BILIRUBIN (U) NEGATIVE NEGATIVE BLOOD NEGATIVE NEGATIVE WBC/HPF NONE SEEN 0 - 5 /HPF RBC/HPF NONE SEEN 0 - 5 /HPF EPI/HPF FEW /HPF CULTURE & SENSITIVITY INDICATED? CULTURE IS NOT INDICATED LIPASE Result Value Ref Range LIPASE 93 73 - 393 UNITS/L Quantitative HCG Result Value Ref Range HCG, QUANTITATIVE <1 0 - 6 MIU/ML SMEAR, STAIN, WET PREP Specimen: VAGINAL Result Value Ref Range Spec. Description VAGINAL SPECIMEN Special Requests: NO SPECIAL REQUEST DIRECT EXAM WET PREP: NO YEAST OR MOTILE TRICHOMONAS SEEN FEW CLUE CELLS SEEN DIRECT EXAM SCREED OPERATOR PASS POSITIVE AND NEGATIVE. JDJ IMAGING STUDIES US PELVIC NON OB COMP TA W DOPPLER FOR TORSION (Results Pending) ED Course / Medical Decision Making Patient presenting with a chief complaint of sudden onset pelvic pain after intercourse. In the differential diagnosis I considered anemia or other hematologic abnormality, electrolyte derangement, metabolic derangement, liver dysfunction, renal dysfunction, pelvic inflammatory disease (ruled out physical examination), ovarian cyst rupture versus torsion, appendicitis, other intra-abdominal I reviewed the patient's labs, which are unremarkable, as above I interpreted the patient's pulse oximeter at rest, which is 99% on room air, which is normal and determined that this patient is not hypoxic I interpreted the patient's director of student affairs as showing a sinus rhythm and hemodynamic stability Imaging of the patient's pelvis was pending at the end of my shift. Medications morphine (PF) injection 6 mg (6 mg Intravenous Given 07/06/21 1543) ondansetron (ZOFRAN) injection 4 mg (4 mg Intravenous Given 07/06/21 1540) ketorolac (TORADOL) injection 15 mg (15 mg Intravenous Given 07/06/21 1947) Clinical Impression Pelvic pain (Primary) Disposition: Signed out to the oncoming physician to follow-up pelvic ultrasound and then re- assess and disposition appropriately Ayan Gale MD,PHD 07/07/21 1400 * Sonia Tanner RN - 07/06/2021 3:13 PM CDT Patient presents with complaints of pelvic pain that started during sexual intercourse. Reports having a period within last month, not on control. documented in this encounter Plan of Treatment Not on file documented as of this encounter Procedures Procedure Name Priority Date/Time Associated Diagnosis Comments US PELVIC NON OB COMP TA+TV STAT 07/06/2021 7:59 PM CDT SMEAR, STAIN, WET PREP STAT 6:08 PM CDT URINALYSIS, AUTO, COMPLETE STAT 07/06/2021 4:51 PM CDT COMPREHENSIVE METABOLIC PANEL STAT 07/06/2021 3:35 PM CDT LACTIC ACID STAT 07/06/2021 3:35 PM CDT HCG QUANT (SERUM)-CHORIONIC GONADOTROPIN STAT 07/06/2021 3:35 PM CDT CBC W/DIFF AUTOMATED STAT 07/06/2021 3:35 PM CDT PHOSPHORUS, INORGANIC PHOSPHATE STAT 07/06/2021 3:35 PM CDT MAGNESIUM STAT 07/06/2021 3:35 PM CDT LIPASE STAT 07/06/2021 3:35 PM CDT documented in this encounter Results * US PELVIC NON OB COMP TA+TV (07/06/2021 7:59 PM CDT) Anatomical Region Laterality Modality Pelvis Ultrasound 07/06/2021 8:11 PM CDT Impressions 07/06/2021 8:14 PM CDT IMPRESSION: Enlarged left ovary with heterogeneous echotexture with blood flow. However there is a tubular structure seen in the left adnexa as detailed above which may represent hydro or pyosalpinx. Ectopic is not excluded. Please correlate with beta hCG. Torsion cannot be excluded on sonographic basis alone. Please correlate clinically. Consider gynecologic consultation. Referred By: AYAN GALE Interpreted By: Tae Diop, 07/06/2021 8:11 PM Narrative 07/06/2021 8:14 PM CDT Ultrasound Pelvis INDICATION: Pelvic pain, dyspareunia. Technique: Transabdominal and transvaginal views were obtained. Findings: The uterus is retroflexed and measures 7.0 x 4.2 x 5.3 cm. Endometrium is normal measuring 1 mm. The right ovary measures 3.8 x 2.1 x 2.4 cm. Normal blood flow seen to the right ovary. Left ovary is enlarged measuring 6.2 x 3.9 x 3.9 cm. There is heterogeneous echotexture noted throughout the left ovary. Blood flow is noted to the left ovary. However there is a tubular structure noted in the left adnexa likely representing a fallopian tube.. This may represent hydro or pyosalpinx. There is a small amount of free fluid. Procedure Note Tae Diop, DO - 07/06/2021 Ultrasound Pelvis INDICATION: Pelvic pain, dyspareunia. Technique: Transabdominal and transvaginal views were obtained. Findings: The uterus is retroflexed and measures 7.0 x 4.2 x 5.3 cm. Endometrium isnormal measuring 1 mm. The right ovary measures 3.8 x 2.1 x 2.4 cm. Normalblood flow seen to the right ovary. Left ovary is enlarged measuring 6.2 x3.9 x 3.9 cm. There is heterogeneous echotexture noted throughout the leftovary. Blood flow is noted to the left ovary. However there is a tubularstructure noted in the left adnexa likely representing a fallopian tube..This may represent hydro or pyosalpinx. There is a small amount of freefluid. IMPRESSION: Enlarged left ovary with heterogeneous echotexture with bloodflow. However there is a tubular structure seen in the left adnexa asdetailed above which may represent hydro or pyosalpinx. Ectopic pregnancyis not excluded. Please correlate with beta hCG. Torsion cannot beexcluded on sonographic basis alone. Please correlate clinically. Considergynecologic consultation. Referred By: AYAN GALE Interpreted By: Tae Diop, 07/06/2021 8:11 PM us Ayan Glae MD,PHD ULTRASOUND Final Resu lt * SMEAR, STAIN, WET PREP (07/06/2021 6:08 PM CDT) SPEC DESCRIPTION VAGINAL SPECIMEN 07/06/2021 6:09 PM CDT [facility] SPECIAL REQUESTS NO SPECIAL REQUEST 07/06/2021 6:09 PM CDT [facility] DIRECT EXAM WET PREP: ??NO YEAST OR MOTILE TRICHOMONAS SEEN FEW CLUE CELLS SEEN 07/06/2021 6:21 PM CDT [facility] DIRECT EXAM SCREED OPERATOR PASS POSITIVE AND NEGATIVE. JDJ 07/06/2021 6:21 PM CDT [facility] VAGINAL STRUCTURE / Unknown 07/06/2021 6:08 PM CDT 07/06/2021 6:13 PM CDT us Ayan Gale MD,PHD MICROBIOLOGY - GENERAL ORD ERABLES Final Result [facility] [address] [place] [address], [place] [phone] * URINALYSIS, AUTO, COMPLETE (07/06/2021 4:51 PM CDT) COLOR (U) YELLOW 07/06/2021 5:28 PM CDT [facility] TRANSPARENCY CLEAR 07/06/2021 5:28 PM CDT [facility] SPECIFIC GRAVITY (U) 1.010 1.000 - 1.030 07/06/2021 5:28 PM CDT [facility] U PH 6.0 5.0 - 9.0 07/06/2021 5:28 PM CDT [facility] LEUKOCYTES (U) NEGATIVE NEGATIVE 07/06/2021 5:28 PM CDT [facility] NITRITES NEGATIVE NEGATIVE 07/06/2021 5:28 PM CDT [facility] PROTEIN (U) NEGATIVE NEGATIVE 07/06/2021 5:28 PM CDT [facility] URINE GLUCOSE NEGATIVE NEGATIVE 07/06/2021 5:28 PM CDT [facility] KETONES MG/DL (U) NEGATIVE NEGATIVE 07/06/2021 5:28 PM CDT [facility] BILIRUBIN (U) NEGATIVE NEGATIVE 07/06/2021 5:28 PM CDT [facility] BLOOD (U) NEGATIVE NEGATIVE 07/06/2021 5:28 PM CDT [facility] WBC/HPF NONE SEEN 0 - 5 /HPF 07/06/2021 5:28 PM CDT [facility] RBC/HPF NONE SEEN 0 - 5 /HPF 07/06/2021 5:28 PM CDT [facility] EPI/HPF FEW /HPF 07/06/2021 5:28 PM CDT [facility] CULTURE & SENSITIVITY INDICATED? CULTURE IS NOT INDICATED 07/06/2021 5:28 PM CDT [facility] URINE SPECIMEN OBTAINED BY CLEAN CATCH PROCEDURE / Unknown 07/06/2021 4:51 PM CDT Ayan Gale MD,PHD URINE ORDERABLES Final Res ult Performing Organization Address City/[facility]/ZIP Co de Phone Number [facility] [address] [place] [address], [place] [phone] * LACTIC ACID (07/06/2021 3:35 PM CDT) Pathologist [facility] LACTIC ACID VENOUS 0.4 0.4 - 2.0 MMOL/L 07/06/2021 4:09 PM CDT [facility] 07/06/2021 3:35 PM CDT Ayan Gale MD,PHD LABORATORY Final Resu lt [facility] [address] [place] [address], [place] [phone] * Quantitative HCG (07/06/2021 3:35 PM CDT) HCG QUANTITATIVE <1 0 - 6 MIU/ML 07/06/2021 4:29 PM CDT [facility] Comment: WEEKS OF ? REFERENCE [...] 2 - 3 MONTHS ?10,000 - 100,000 07/06/2021 3:35 PM CDT Ayan Gale MD,PHD LABORATORY Final Resu lt Performing Organization Address [facility] de Phone Number [facility] [address] [place] [address], [place] [phone] * LIPASE (07/06/2021 3:35 PM CDT) LIPASE 93 73 - 393 UNITS/L 07/06/2021 4:29 PM CDT [facility] 07/06/2021 3:35 PM CDT Ayan Gale MD,PHD LABORATORY Final Resu lt Performing Organization Address [facility] de Phone Number [facility] [address] [place] [address], [place] [phone] * PHOSPHORUS, INORGANIC PHOSPHATE (07/06/2021 3:35 PM CDT) PHOSPHORUS 3.8 2.5 - 4.9 MG/DL 07/06/2021 4:29 PM CDT [facility] 07/06/2021 3:35 PM CDT Ayan Gale MD,PHD LABORATORY Final Resu [facility] [address] [place] [address], [place] [phone] * MAGNESIUM (07/06/2021 3:35 PM CDT) MAGNESIUM 2.3 1.8 - 2.4 MG/DL 07/06/2021 4:29 PM CDT [facility] 07/06/2021 3:35 PM CDT Ayan Gale MD,PHD LABORATORY Final [facility] Performing Organization Address [facility]/ZIP Co de Phone Number [facility] [address] [place] [address], [place] [phone] * (ABNORMAL) COMPREHENSIVE METABOLIC PANEL (07/06/2021 3:35 PM CDT) GLUCOSE 98 70 - 99 MG/DL 07/06/2021 4:29 PM CDT [facility] BUN 14 7 - 18 MG/DL 07/06/2021 4:29 PM CDT [facility] CREATININE S/P/B 0.75 0.55 - 1.02 MG/DL 07/06/2021 4:29 PM CDT [facility] SODIUM S/P/B 139 136 - 145 MMOL/L 07/06/2021 4:29 PM [facility] POTASSIUM S/P/B 3.8 3.5 - 5.1 MMOL/L 07/06/2021 4:29 PM [facility] CHLORIDE S/P/B 105 100 - 108 MMOL/L 07/06/2021 4:29 PM [facility] CO2 28.7 21 - 32 MMOL/L 07/06/2021 4:29 PM [facility] CALCIUM S/P/B 9.2 8.5 - 10.1 MG/DL 07/06/2021 4:29 PM [facility] BILIRUBIN TOTAL S/P/B 0.3 0.2 - 1.2 MG/DL 07/06/2021 4:29 PM [facility] TOTAL PROTEIN S/P/B 7.5 6.4 - 8.2 G/DL 07/06/2021 4:29 PM [facility] ALBUMIN S/P/B 3.9 3.4 - 5.0 G/DL 07/06/2021 4:29 PM [facility] AST 14(L) 15 - 37 U/L 07/06/2021 4:29 PM [facility] ALT 26 14 - 55 U/L 07/06/2021 4:29 PM [facility] ALKALINE PHOSPHATASE S/P/B 61 50 - 136 U/L 07/06/2021 4:29 PM [facility] ANION GAP 5.3 5 - 15 MMOL/L 07/06/2021 4:29 PM [facility] BUN CREATININE RATIO 18.7 6 - 26 07/06/2021 4:29 PM [facility] A/G RATIO 1.1 1.0 - 2.0 RATIO 07/06/2021 4:29 PM CDT [facility] EGFR NON-AFR. AMER. >90 >90 ML/MIN/1.7 3 M2 07/06/2021 4:29 PM CDT [facility] EGFR AFR. AMER. >90 >90 ML/MIN/1.7 3 M2 07/06/2021 4:29 PM CDT [facility] Comment: NOTE: eGFR is not calculated for patients <18 years of age. This is an estimated GFR (CKD EPI) and should not be used for calculating drug doses. 07/06/2021 3:35 PM CDT us Ayan Gale MD,PHD LABORATORY Final Resu lt [facility] [address] [place] [address], * (ABNORMAL) CBC W/DIFF AUTOMATED (07/06/2021 3:35 PM CDT) WBC 5.9 4.4 - 11.0 x10'3/uL 07/06/2021 3:41 PM CDT [facility] RBC 4.71 4.50 - 5.10 x10'6/uL 07/06/2021 3:41 PM CDT [facility] HGB 13.0 12.3 - 15.3 G/DL 07/06/2021 3:41 PM CDT [facility] HCT 40.4 35.9 - 44.6 % 07/06/2021 3:41 PM CDT [facility] MCV 85.8 80.0 - 96.0 FL 07/06/2021 3:41 PM CDT [facility] MCH 27.6 25.3 - 30.9 PG 07/06/2021 3:41 PM CDT [facility] MCHC 32.2 31.0 - 34.1 G/DL 07/06/2021 3:41 PM T [facility] RDW 13.3 12.4 - 15.1 % 07/06/2021 3:41 PM T [facility] PLT 196 151 - 353 x10'3/uL 07/06/2021 3:41 PM T [facility] MPV 12.9(H) 9.6 - 12.0 FL 07/06/2021 3:41 PM T [facility] RBC MORPHOLOGY NORMAL 07/06/2021 3:41 PM T [facility] PLT MORPH. NORMAL 07/06/2021 3:41 PM T [facility] WBC MORPHOLOGY NORMAL 07/06/2021 3:41 PM T [facility] LYMPHOCYTES % 24.1 15.8 - 45.0 % 07/06/2021 3:41 PM T [facility] NEUTROPHILS % 68.8 42.1 - 71.9 % 07/06/2021 3:41 PM T [facility] MONOCYTES % 6.1 5.7 - 12.5 % 07/06/2021 3:41 PM [facility] EOSINOPHILS 0.5 0.0 - 5.6 % 07/06/2021 3:41 PM T [facility] BASOPHILS 0.3 0.0 - 1.3 % 07/06/2021 3:41 PM T [facility] ABS. NEUTROPHILS TOTAL 4.08 1.40 - 6.00 x10'3/uL 07/06/2021 3:41 PM T [facility] IMMATURE GRANS % 0.2 0.0 - 0.5 % 07/06/2021 3:41 PM T [facility] ABS. LYMPHOCYTES 1.43 0.80 - 4.70 x10'3/uL 07/06/2021 3:41 PM CDT [facility] 07/06/2021 3:35 PM CDT us Ayan Gale MD,PHD LABORATORY Final Resu lt [facility] [address] [place] [address], documented in this encounter Visit Diagnoses Diagnosis Pelvic pain- Primary documented in this encounter Administered Medications Inactive Administered Medications - up to 3 most recent administrations Medication Order MAR Action Action Date Dose Rate Site ketorolac (TORADOL) injection 15 mg 15 mg, Intravenous, Once, 1 dose, On [place]vit[place] 07/06/21 at 1945, For IV administration, give over 15 seconds. Given 07/06/2021 7:47 PM CDT 15 mg morphine (PF) injection 6 mg 6 mg, Intravenous, Once, 1 dose, On Svitlana 07/06/21 at 1530 Given 07/06/2021 3:43 PM CDT 6 mg ondansetron (ZOFRAN) injection 4 mg 4 mg, Intravenous, Once, 1 dose, On [place]vit[place] 07/06/21 at 1530, IV push over 2-5 minutes. Given 07/06/2021 3:40 PM CDT 4 mg documented in this encounter Active and Recently Administered Medications Times are shown in CDT. Scheduled Medication Order 07/04/2021 07/05/2021 07/06/2021 ketorolac (TORADOL) injection 15 mg (COMPLETED) 15 mg, Intravenous, Once, 1 dose, On Svitlana 07/06/21 at 1945, For IV administration, give over 15 seconds. 1947 (Given - Provid er: June Christensen RN) morphine (PF) injection 6 mg (COMPLETED) 6 mg, Intravenous, Once, 1 dose, On Svitlana 07/06/21 at 1530 1543 (Given - Provid er: Yenny Ritchie RN) ondansetron (ZOFRAN) injection 4 mg (COMPLETED) 4 mg, Intravenous, Once, 1 dose, On Svitlana 07/06/21 at 1530, IV push over 2-5 minutes. 1540 (Given - Provid er: Yenny Ritchie RN) documented in this encounter Care Teams Entry Level Sales Representative Relationship Specialty Start Date End Date Cortney Colbert NP [address] [place] [address] PCP - General NURSE PRACTITIONER 05/06/21 10/07/22 documented as of this encounter
--- OUTSIDE RECORDS SUMMARY | 2024-11-14 19:16 | XMS_ITS | Encounter Summary ---
Author Organization [facility] Address [address] [place] [address]. [place], [place] [id number] [place] [id number] Care Team Providers Care Legal Collector Name Role Phone Fiona Parkinson MD Primary Care Pr ovider Unavailable Reason for Visit * Reason Comments Back Pain Upper left back Encounter Details Date Type Department Care Team (Late st Contact Info) Description 10/13/2022 6:14 PM BRAID CUTTER - 10/13/2022 8:27 PM BRAID CUTTER Emergency [facility] Emergency Room [address] [place] [address] Ortega Gama MD Back Pain (Upper left back ) Discharge Disposition: Home or Self Care (Routine [...] Coronavirus/COVID-19? No / Unsure 10/13/2022 6:10 PM BRAID CUTTER documented as of this encounter Last Filed Vital Signs Vital Sign Reading Time Taken Comments Blood Pressure 134/78 10/13/2022 6:19 PM BRAID CUTTER Pulse 73 10/13/2022 6:19 PM BRAID CUTTER Temperature 36.7 ??C (98 ??F) 10/13/2022 6:19 PM BRAID CUTTER Respiratory Rate 20 10/13/2022 6:19 PM BRAID CUTTER Oxygen Saturation 99% 10/13/2022 6:19 PM BRAID CUTTER Inhaled Oxygen Concentration - - Weight 77.6 kg (171 lb) 10/13/2022 6:19 PM BRAID CUTTER Height 160 cm (5' 3 ) 10/13/2022 6:19 PM BRAID CUTTER Body Mass Index 30.29 10/13/2022 6:19 PM BRAID CUTTER documented in this encounter Functional Status * [...] this encounter Discharge Instructions * Discharge Instructions* Ortega Gama MD - 10/13/2022 8:10 PM BRAID CUTTER Please take ibuprofen 600 mg 4 times daily for the next 5 days D CUTTER * Attachments The following attachments cannot be sent through Care Everywhere. * Pleuritic Chest Pain Discharge Instructions (Haitian) * Muscle Strain Discharge Instructions (Haitian) documented in this encounter Medications at Time of Discharge albuterol sulfate HFA 108 (90 Base) MCG/ACT inhaler 10/06/2022 4 buPROPion SR (WELLBUTRIN SR) 150 MG 12 hr tabletIndications :Social anxiety disorder,Moderate episode of recurrent major depressive disorder (CMS/HCC HHS/HCC) Take 1 tablet every morning x 3 days, then increase to 1 tablet twice a day 60 tablet 2 10/08/2022 3 propranolol (INDERAL) 10 MG tabletIndications :Social anxiety disorder,Other migraine without status migrainosus, not intractable Take 1 tablet (10 mg total) by mouth 2 (two) times daily. 60 tablet 2 10/08/2022 3 documented as of this encounter ED Notes * Ortega Gama MD - 10/13/2022 8:05 PM CST Chief Complaint Chief Complaint Patient presents with ??? Back Pain Upper left back History of Present Illness 21-year-old female with no significant past medical history presenting with left-sided chest pain. Patient states she was diagnosed with bronchitis approximately 3 weeks ago and was prescribed an albuterol inhaler, steroids. States she completed this and has noted improving cough, however over the last 2 days she has noted sharp left lateral chest wall pain, particularly with palpation, deep inspiration. She denies significant shortness of breath. Denies fever. Denies OCP use, recent surgery/travel/immobility, history of PE/DVT, unilateral lower extremity edema. Medical History ALLERGIES: Allergies Allergen Reactions ??? Sulfa Antibiotics Hives ??? Vancomycin Infusion Reaction Fever, chills ??? Clindamycin Hives MEDICATIONS: Prior to Admission medications Medication Sig Start Date End Date Taking? Authorizing Provider albuterol sulfate HFA 108 (90 Base) MCG/ACT inhaler 10/06/22 Yes GENERICPROVIDER, DEFAULT HISTORY buPROPion SR (WELLBUTRIN SR) 150 MG 12 hr tablet Take 1 tablet every morning x 3 days, then increase to 1 tablet twice a day 10/08/22 Yes Fiona Parkinson MD propranolol (INDERAL) 10 MG tablet Take 1 tablet (10 mg total) by mouth 2 (two) times daily. 10/08/22 Yes Fiona Parkinson MD PAST MEDICAL HISTORY: Past [...] of Systems Review of Systems Constitutional: Negative. HENT: Negative. Eyes: Negative. Respiratory: Positive for cough. Cardiovascular: Positive for chest pain. Gastrointestinal: Negative. Endocrine: Negative. Genitourinary: Negative. Musculoskeletal: Negative. Skin: Negative. Allergic/Immunologic: Negative. Neurological: Negative. Hematological: Negative. Psychiatric/Behavioral: Negative. All other systems reviewed and are negative. Physical Exam Filed Vitals: 10/13/22 1819 BP: 134/78 Pulse: 73 Resp: 20 Temp: 98 ??F (36.7 ??C) TempSrc: Temporal SpO2: 99% Weight: 77.6 kg (171 lb) Height: 5' 3 (1.6 m) Physical Exam Vitals and nursing note reviewed. Constitutional: Appearance: Normal appearance. She is normal weight. HENT: Head: Normocephalic and atraumatic. Nose: Nose normal. Mouth/Throat: Mouth: Mucous membranes are moist. Pharynx: Oropharynx is clear. Eyes: Extraocular Movements: Extraocular movements intact. Conjunctiva/sclera: Conjunctivae normal. Pupils: Pupils are equal, round, and reactive to light. Cardiovascular: Rate and Rhythm: Normal rate and regular rhythm. Pulses: Normal pulses. Heart sounds: Normal heart sounds. Pulmonary: Effort: Pulmonary effort is normal. Breath sounds: Normal breath sounds. Abdominal: General: Abdomen is flat. Bowel sounds are normal. Palpations: Abdomen is soft. Tenderness: There is no abdominal tenderness. There is no guarding or rebound. Musculoskeletal: [...] baseline. Cranial Nerves: No cranial nerve deficit. Sensory: No sensory deficit. Motor: No weakness. Psychiatric: Mood and Affect: Mood normal. Behavior: Behavior normal. Diagnostic Studies / Procedures ELECTROCARDIOGRAMS: No results found for this visit on 10/13/22. LABORATORY STUDIES: No results found for this visit on 10/13/22. IMAGING STUDIES XR CHEST PORTABLE Final Result by User, [id number] (10/13 1952) EXAMINATION: XR CHEST PORTABLE TECHNIQUE: Upright AP portable radiograph of the chest INDICATIONS: Dyspnea, left chest and back pain, cough COMPARISON: Chest radiograph 05/06/2021 FINDINGS: The heart size is normal. The cardiomediastinal silhouette is within normal limits. The pulmonary vascular pattern appears unremarkable. There is no focal pulmonary consolidation. There is no pleural effusion. There is no pneumothorax. IMPRESSION: No radiographic evidence of an acute cardiopulmonary abnormality. Ordered By: ORTEGA GAMA Interpreted By: Len Morales MD, 10/13/2022 7:48 PM ED Course / Medical Decision Making 21-year-old female presenting with pleuritic left-sided chest pain after recent bronchitis. She is clinically well-appearing and nontoxic, vitals are reassuring. I do not have a high clinical suspicion for PE, low risk based on Wells score, PERC negative. Chest x-ray did not demonstrate evidence offocal pulmonary consolidations, pneumothorax. I suspect her symptoms are likely secondary to pleurisy in the setting of recent bronchitis versus chest wall muscle spasm/strain. We will plan to treat with 5-day course of ibuprofen. Patient advised on home care instructions, follow-up with primary care physician as needed. ED return precautions given, patient agreeable with plan of care, safe for discharge Clinical Impression Pleurisy (Primary) Chest wall muscle strain Disposition: Discharge Ortega Gama MD 10/13/222009 D CUTTER * Chantal Perkins RN - 10/13/2022 6:22 PM CST Was seen at urgent care and told she had bronchitis and finished the steroids yesterday has pain toupper and mid back on the right D CUTTER documented in this encounter Plan of Treatment Not on file documented as of this encounter Procedures Procedure Name Priority Date/Time Associated Diagnosis Comments XR CHEST PORTABLE STAT 10/13/2022 7: 45 PM BRAID CUTTER documented in this encounter Results * XR CHEST PORTABLE (10/13/2022 7:45 PM BRAID CUTTER) Anatomical Region Laterality Modality Chest Radiographic Ann Marie ging 10/13/2022 7:48 PM BRAID CUTTER Impressions 10/13/2022 7:49 PM BRAID CUTTER IMPRESSION: No radiographic evidence of an acute cardiopulmonary abnormality. Ordered By: ORTEGA GAMA Interpreted By: Len Morales MD, 10/13/2022 7:48 PM Narrative 10/13/2022 7:49 PM BRAID CUTTER EXAMINATION: XR CHEST PORTABLE TECHNIQUE: Upright AP portable radiograph of the chest INDICATIONS: Dyspnea, left chest and back pain, cough COMPARISON: Chest radiograph 05/06/2021 FINDINGS: The heart size is normal. The cardiomediastinal silhouette is within normal limits. The pulmonary vascular pattern appears unremarkable. There is no focal pulmonary consolidation. There is no pleural effusion. There is no pneumothorax. Procedure Note Len Morales MD - 10/13/2022 EXAMINATION: XR CHEST PORTABLE TECHNIQUE: Upright AP portable radiograph of the chest INDICATIONS: Dyspnea, left chest and back pain, cough COMPARISON: Chest radiograph 05/06/2021 FINDINGS: The heart size is normal. The cardiomediastinal silhouette iswithin normal limits. The pulmonary vascular pattern appears unremarkable.There is no focal pulmonary consolidation. There is no pleural effusion.There is no pneumothorax. IMPRESSION: No radiographic evidence of an acute cardiopulmonaryabnormality. Ordered By: ORTEGA GAMA Interpreted By: Len Morales MD, 10/13/2022 7:48 PM Ortega Gama MD GENERAL IMAGING Final Result documented in this encounter Visit Diagnoses Diagnosis Pleurisy- Primary Pleurisy without mention of effusion or current tuberculosis Chest wall muscle strain Other specified sites of sprains and strains documented in this encounter Administered Medications Inactive Administered Medications - up to 3 most recent administrations Medication Order MAR Action Action Date Dose Rate Site ibuprofen (MOTRIN) tablet 600 mg 600 mg, Oral, Once, 1 dose, On 10/13/22 at 1930 Given 10/13/2022 8:09 PM BRAID CUTTER 600 mg documented in this encounter Active and Recently Administered Medications Times are shown in BRAID CUTTER. Scheduled Medication Order 10/11/2022 10/12/2022 10/13/2022 ibuprofen (MOTRIN) tablet 600 mg (COMPLETED) 600 mg, Oral, Once, 1 dose, On 10/13/22 at 1930 2008 (Given - [facility] er: Catherine Liu RN) documented in this encounter Additional Health Concerns Assessment Noted Time PHQ-9 Depression Total Score: 14 022 1:17 PM BRAID CUTTER documented as of this encounter Care Teams Legal Collector Relationship Specialty Start Date End Date Fiona Parkinson MD PCP - General FAMILY PRACTICE 10/08/22 04/14/23 documented as of this encounter
--- OUTSIDE RECORDS SUMMARY | 2024-11-14 19:16 | XMS_ITS | Encounter Summary ---
Author Organization [facility] Address [address] [place] [address]. [place], [place] [id number] [place] [address] Care Team Providers Care Diet Technician Registered Name Role Phone Cortney Colbert AGRICULTURE SCIENTIST Primary Care Provider [phone] Encounter Details Date Type Department Care Team (Latest Contact Info) Description 05/06/2021 Travel Social History Tobacco Use Types Packs/Day [...] AM CDT documented as of this encounter Plan of Treatment Not on file documented as of this encounter Visit Diagnoses Not on filedocumented in this encounter Care Teams Diet Technician Registered Relationship Specialty Start Date End Date Cortney Colbert NP [facility] [place] [address] PCP - General NURSE PRACTITIONER 05/06/21 10/07/22 documented as of this encounter
--- OUTSIDE RECORDS SUMMARY | 2024-11-14 19:16 | XMS_ITS | Encounter Summary ---
Author Organization [facility] Address [address] [place] [address]. [place], [place] [id number] [place] [id number] Care Team Providers Care Sleeve Maker Name Role Phone Fiona Parkinson MD Primary Care Pr ovider Unavailable Encounter Details Date Type Department Care Team (Latest Contact Info) Description 10/23/2022 Travel Social History Tobacco Use Types Packs/Day [...] Coronavirus/COVID-19? No / Unsure 10/23/2022 12:25 AM GUARDIAN FAMILY MEMBER documented as of this encounter Functional Status [...] Depression Total Score: 14 022 1:17 PM GUARDIAN FAMILY MEMBER documented as of this encounter Care Teams Sleeve Maker Relationship Specialty Start Date End Date Fiona Parkinson MD PCP - General FAMILY PRACTICE 10/08/22 04/14/23 documented as of this encounter
--- OUTSIDE RECORDS SUMMARY | 2024-11-14 19:16 | XMS_ITS | Encounter Summary ---
Author Organization [facility] Address [address] [place] [address]. [place], [place] [id number] [place] [address] Care Team Providers Care Vacation Planner Name Role Phone Fiona Parkinson MD Primary Care Pr ovider Unavailable Reason for Visit * Reason Onset Date Comments Results 10/26/2022 Encounter Details Date Type Department Care Team (Late st Contact Info) Description 10/26/2022 Telephone [facility] - [address] [place] [address] Fiona Parkinson MD Results Social History Tobacco [...] Coronavirus/COVID-19? No / Unsure 10/25/2022 9:52 AM HEALTH SERVICE COORDINATOR documented as of this encounter Functional [...] Progress Notes * Catherine Lacy MA - 10/26/2022 10:37 AM CST Called and informed pt Rheumatoid factor is normal. CK level is not elevated, I don't see a concernfor muscle breakdown as this level is not high. CRP which is a marker of inflammation is elevated, however it is down-trending from 9 months ago. Not sure at this time where the inflammation is coming from. ?? Waiting on the rest of her autoimmune labs to result Pt verbalized understanding TH SERVICE COORDINATOR documented in this encounter Plan of Treatment Not on file documented as of this encounter Visit Diagnoses Not on filedocumented in this encounter Additional Health Concerns Assessment Noted Time PHQ-9 Depression Total Score: 14 022 1:17 PM HEALTH SERVICE COORDINATOR documented as of this encounter Care Teams Vacation Planner Relationship Specialty Start Date End Date Fiona Parkinson MD PCP - General FAMILY PRACTICE 10/08/22 04/14/23 documented as of this encounter
--- OUTSIDE RECORDS SUMMARY | 2024-11-14 19:16 | XMS_ITS | Encounter Summary ---
Author Organization [facility] Address [address] [place] [address]. [place] [address] [place] [address] Care Team Providers Care Advertising Editor Name Role Phone Cortney Colbert NP Primary Care Provider [phone] Reason for Visit * Auth/Cert Specialty Diagnoses / Procedures Referred By Contac t Referred To Contact Diagnoses Pelvic pain left adnexal mass Pelvic pain Procedures NA Referral ID Status Reason Start Date Expiration Date Visits Re quested Visits Authorized [id number] 1 1 Encounter Details Date Type Department Care Team (Latest Contact Info) Description 07/07/2021 12:28 AM CDT - 07/08/2021 2:00 PM CDT Hospital Encounter [facility] [place] [address] Rey Park MD [address] [place], [place] [id number] Discharge Disposition: Home or Self Care (Routine [...] Sign Reading Time Taken Comments Blood Pressure 98/62 07/08/2021 7:41 AM CDT Pulse 77 07/07/2021 4:00 PM CDT Simultaneous filing. User may not have seen previous data. Temperature 36.7 ??C (98 ??F) 07/07/2021 4:0 0 PM CDT Respiratory Rate 15 07/07/2021 4:00 PM CDT Simultaneous filing. User may not have seen previous data. Oxygen Saturation 99% 07/08/2021 7:4 1 AM CDT Inhaled Oxygen Concentration - - [...] No 07/07/2021 2:08 AM Alba Morton R Moses Active documented in this encounter Discharge Summaries [...] adhesive diseaseat this time she presented to [place] [facility] on the with sudden onset [...] sent through Care Everywhere. 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: OB History No obstetric history on [...] CDT CHG wipes used on arrival to [facility], etsamantahl alcohol swabs x 2 placed in bilateral [...] Significant pelvic adhesions Surgeon: LUZMA BANGURA MD Principal Android Developer: Nurse Anesthesia: General Procedure: Laparoscopic adhesio lysis [...] single- tooth tenaculum and using a small [place] Zealander dilator this was passed through the cervix [...] lateral 5 mm ports we re placed group home between the anterior superior iliac spines and umbilicus just lateral to the epigastric vessels after the skin was injected with quarter percent Marcaine solution incision was made with 11 blade the disposable ports were placed under direct visualization the suction booker was then used to suction the clot [...] AUTO, NO DIFF (07/08/2021 6:13 AM CDT) [facility] WBC 7.2 4.5 - 13.0 x10'3/uL 07/08/2021 8:43 AM CDT [facility] RBC 3.79(L) 4.20 - 5.40 x10'6/uL 07/08/2021 8:43 AM CDT [facility] HGB 10.6(L) 12.0 - 16.0 G/DL 07/08/2021 8:43 AM CDT [facility] HCT 33.3(L) 38.0 - 48.0 % 07/08/2021 8:43 AM CDT [facility] MCV 87.9 81.0 - 99.0 FL 07/08/2021 8:43 AM CDT [facility] MCH 28.0 27.0 - 31.0 PG 07/08/2021 8:43 AM CDT [facility] MCHC 31.8(L) 32.0 - 36.0 G/DL 07/08/2021 8:43 AM CDT [facility] RDW 13.5 11.5 - 14.5 % 07/08/2021 8:43 AM CDT [facility] PLT 150 130 - 400 x10'3/uL 07/08/2021 8:43 AM CDT [facility] MPV 13.3(H) 9.3 - 12.2 FL 07/08/2021 8:43 AM CDT [facility] 07/08/2021 6:13 AM CDT us Luzma Bangura MD LABORATORY Final Result [facility] [address] [place] [address], * (ABNORMAL) BASIC METABOLIC PANEL (07/08/2021 6:13 AM CDT) [facility] Signature GLUCOSE 98 70 - 99 MG/DL 07/08/2021 6:43 AM CDT [facility] BUN 11 7 - 18 MG/DL 07/08/2021 6:43 AM CDT [facility] CREATININE S/P/B 0.71 0.55 - 1.02 MG/DL 07/08/2021 6:43 AM CDT [facility] SODIUM S/P/B 139 136 - 145 MMOL/L 07/08/2021 6:43 AM CDT [facility] POTASSIUM S/P/B 3.8 3.5 - 5.1 MMOL/L 07/08/2021 6:43 AM CDT [facility] CHLORIDE S/P/B 110(H) 100 - 108 MMOL/L 07/08/2021 6:43 AM CDT [facility] CO2 27.4 21 - 32 MMOL/L 07/08/2021 6:43 AM CDT [facility] CALCIUM S/P/B 8.3(L) 8.5 - 10.1 MG/DL 07/08/2021 6:43 AM CDT [facility] ANION GAP 1.6(L) 5 - 15 MMOL/L 07/08/2021 6:43 AM CDT [facility] BUN CREATININE RATIO 15.4 6 - 26 07/08/2021 6:43 AM CDT [facility] EGFR NON-AFR. AMER. >90 >90 ML/MIN/1.7 3 M2 07/08/2021 6:43 AM CDT [facility] EGFR AFR. AMER. >90 >90 ML/MIN/1.7 3 M2 07/08/2021 6:43 AM CDT [facility] Comment: NOTE: eGFR is not calculated for patients <18 years of age. This is an estimated GFR (CKD EPI) and should not be used for calculating drug doses. 07/08/2021 6:13 AM CDT Luzma Bangura MD LABORATORY Final Result [facility] [address] [place] [address], [place] [phone] * PROCEDURE GENERIC (07/07/2021 11:23 AM CDT) Narrative 07/07/2021 11:23 AM CDT Ordered by an unspecified provider. us Documents Scanned [facility] Final Result * TYPE & SCREEN (07/07/2021 12:44 AM CDT) ABO/RH A POSITIVE 07/07/2021 6:09 AM CDT [facility] ANTIBODY SCREEN NEGATIVE 07/07/2021 6:09 AM CDT [facility] SAMPLE EXPIRATION 07/10/2021,2 359 07/07/2021 6:09 AM CDT [facility] 07/07/2021 12:4 4 AM CDT Rey Park MD BLOOD BANK TEST ORDERABLES Fi nal Result [facility] [address] [place] [address], [place] [phone] * (ABNORMAL) CBC W/DIFF AUTOMATED (07/07/2021 12:44 AM CDT) [facility] Signature WBC 7.6 4.5 - 13.0 x10'3/uL 07/07/2021 2:10 AM CDT [facility] RBC 4.57 4.20 - 5.40 x10'6/uL 07/07/2021 2:10 AM CDT [facility] HGB 12.6 12.0 - 16.0 G/DL 07/07/2021 2:10 AM CDT [facility] HCT 39.2 38.0 - 48.0 % 07/07/2021 2:10 AM CDT [facility] MCV 85.8 81.0 - 99.0 FL 07/07/2021 2:10 AM CDT [facility] MCH 27.6 27.0 - 31.0 PG 07/07/2021 2:10 AM CDT [facility] MCHC 32.1 32.0 - 36.0 G/DL 07/07/2021 2:10 AM CDT [facility] RDW 13.5 11.5 - 14.5 % 07/07/2021 2:10 AM CDT [facility] PLT 185 130 - 400 x10'3/uL 07/07/2021 2:10 AM CDT [facility] MPV 12.9(H) 9.3 - 12.2 FL 07/07/2021 2:10 AM CDT [facility] DIFFERENTIAL TYPE AUTOMATED DIFFERENTIAL 07/07/2021 2:10 AM CDT [facility] NEUTROPHILS % 64.2 % 07/07/2021 2:10 AM CDT [facility] LYMPHOCYTES % 28.4 % 07/07/2021 2:10 AM CDT [facility] MONOCYTES % 6.3 % 07/07/2021 2:10 AM CDT [facility] EOSINOPHILS 0.5 % 07/07/2021 2:10 AM CDT [facility] BASOPHILS 0.5 % 07/07/2021 2:10 AM CDT [facility] IMMATURE GRANS % 0.1 % 07/07/20 2:10 AM CDT [facility] ABS. NEUTROPHILS TOTAL 4.88 1.80 - 8.00 x10'3/uL 07/07/2021 2:10 AM CDT [facility] ABS. LYMPHOCYTES 2.16 1.20 - 5.20 x10'3/uL 07/07/2021 2:10 AM CDT [facility] ABS. MONOCYTES 0.48 0.24 - 0.86 x10'3/uL 07/07/2021 2:10 AM CDT [facility] ABS. EOSINOPHILS 0.04 0.04 - 0.36 x10'3/uL 07/07/2021 2:10 AM CDT [facility] ABS. BASOPHILS 0.04 0.01 - 0.08 x10'3/uL 07/07/2021 2:10 AM CDT [facility] ABS. IMMATURE GRANULOCYTES 0.01 0.00 - 0.49 x10'3/uL 07/07/2021 2:10 AM CDT [facility] 07/07/2021 12:4 4 AM CDT us Rey Park MD LABORATORY Final Result [facility] [address] [place] [address], [place] [phone] documented in this encounter Visit Diagnoses Diagnosis S/P laparoscopy- Primary Other postprocedural status Pelvic pain documented in this encounter Admitting Diagnoses Diagnosis Pelvic pain documented in this encounter Administered Medications Inactive Administered Medications - up to 3 most recent administrations Medication Order MAR Action Action Date Dose Rate Site ceFOXItin (MEFOXIN) 1 g in sodium chloride 0.9 % 50 mL IVPB 1 g, Intravenous, at 100 mL/hr, Every 6 hours, First dose on Sat07/07/21 at 2100, Until Discontinued New Bag 07/08/2021 9:55 AM CDT 1 g 100 mL/hr New Bag 07/08/2021 3:37 AM CDT 1 g 100 mL/hr New Bag 07/07/2021 9:21 PM CDT 1 g 100 mL/hr dextrose 5 % lactated ringers infusion at 125 mL/hr, Intravenous, Continuous, Starting on Sat07/07/21 at 0115, Until Sat07/07/21 at 1557 New Bag 07/07/2021 9:26 AM CDT 125 mL/hr New Bag 07/07/2021 1:49 AM CDT 125 mL/hr diphenhydrAMINE (BENADRYL) 50 MG/ML injection 1 dose, Starting on Sat07/07/21 at 1522, Until Sat07/07/21 at 1523, Created by elina nicholas diphenhydrAMINE (BENADRYL) injection 12.5 mg 12.5 mg, Intravenous, Once as needed, Nausea, Vomiting, 1 dose, Starting on Sat07/07/21 at 1450, Until Sat07/07/21 at 1523, For IV administration, give no faster than 25 mg/min. If more than one antiemetic is ordered, use in this order: ondansetron, diphenhydramine, metoclopramide, haloperidol, promethazine. If nausea / vomiting still not controlled, move to next ordered medication., PACU Given 07/07/2021 3:23 PM CDT 12.5 mg doxycycline hyclate (VIBRAMYCIN) 100 mg in sodium chloride 0.9 % 100 mL IVPB 100 mg, Intravenous, at 100 mL/hr, Every 12 hours, First dose on Sat07/08/21 at 0500, Until Discontinued New Bag 07/08/2021 5:01 AM CDT 100 mg 100 mL/hr doxycycline hyclate (VIBRAMYCIN) 200 mg in sodium chloride 0.9 % 250 mL IVPB 200 mg, Intravenous, at 250 mL/hr, Once, 1 dose, On Sat07/07/21 at 1700 New Bag 07/07/2021 6:17 PM CDT 200 mg 250 mL/hr famotidine (PEPCID) injection 20 mg 20 mg, Intravenous, Once, 1 dose, On Sat07/07/21 at 1115, On admission IV Push over 2 minutes, Pre-Op Given 07/07/2021 11:56 AM CDT 20 mg HYDROcodone-acetaminophen (NORCO) 5-325 MG tablet 1 tablet 1 tablet, Oral, Every 4 hours PRN, Moderate pain (Scale 4 - 7), Starting on Sat07/07/21 at 1557, Until 07/08/21 at 1629, Maximum dose of acetaminophen is 4000 mg from all sources in 24 hours., Post-Op Given 07/08/2021 2:09 AM CDT 1 tablet ketorolac (TORADOL) injection 30 mg 30 mg, Intravenous, Every 6 hours, 3 doses, First dose on Sat07/07/21 at 2100, Last dose on Sat07/08/21 at 0900, For IV administration, give over 15 seconds., Post-Op Given 07/08/2021 9:55 AM CDT 30 mg Given 07/08/2021 3:36 AM CDT 30 mg Given 07/07/2021 9:21 PM CDT 30 mg lactated ringers infusion [...] Continuous, Starting on Sat07/07/21 at 1615, Until Sat07/08/21 at 1629, Post-Op New Bag 07/08/2021 5:01 AM CDT 75 mL/hr New Bag 07/07/2021 6:18 PM CDT 75 mL/hr meperidine (DEMEROL) injection 12.5 mg 12.5 mg, Intravenous, Once as needed, Other, Intractable shivering, 1 dose, Starting on Sat07/07/21 at 1450, Until Sat07/07/21 at 1539, Please call physician if this order is required, PACU Given 07/07/2021 3:39 PM CDT 12.5 mg morphine injection 2 mg 2 mg, Intravenous, Every 2 hours PRN, Other, mild pain (scale 1-3), Starting on Sat07/07/21 at 0047, Until Sat07/07/21 at 1557 Given 07/07/2021 7:25 AM CDT 2 mg Given 07/07/2021 1:56 AM CDT 2 mg ondansetron (ZOFRAN) injection 4 mg 4 mg, Intravenous, Once, 1 dose, On Sat07/07/21 at 1115, On admission, Pre-Op Given 07/07/2021 11:56 AM CDT 4 mg oxyCODONE immediate release (ROXICODONE) tablet 5 mg 5 mg, Oral, Every 4 hours PRN, Severe pain (Scale 8 - 10), Starting on Sat07/07/21 at 1557, Until Sat07/08/21 at 1629, Post-Op Given 07/07/2021 7:45 PM CDT 5 mg scopolamine (TRANSDERM-SCOP) 1 MG/3DAYS patch 1 patch 1 patch, Transdermal, Administer over 72 Hours, Once, 1 dose, On Sat07/07/21 at 1215 Patch Applied 07/07/2021 12:07 PM CDT 1 patch documented in this encounter Active and Recently [...] dose on Sat07/08/21 at 0500, Until Discontinued 0501 (New Bag - Prov ider: Vani Love RN)0602 (Infusion Stop Time - Provider: Anushka Le RN) doxycycline hyclate (VIBRAMYCIN) 200 mg in sodium chloride 0.9 % 250 mL IVPB (COMPLETED) 200 mg, Intravenous, at 250 mL/hr, Once, 1 dose, On Sat07/07/21 at 1700 1817 (New Bag - Provider: Anushka Le RN)1920 (Infusion Stop Time - Provider: Vani [...] IV administration, give over 15 seconds., Post-Op 2120 (Given - Provider: Vani Love, LNADON) 0336 (Given - Provider: Jenn Santo RN)0955 (Given - Provider: Anushka Le, LANDON) ondansetron (ZOFRAN) injection 4 mg (COMPLETED) 4 mg, Intravenous, Once, 1 dose, On Sat07/07/21 at 1115, On admission, Pre-Op 1156 (Given - Provider: Catalina Valentino RN) scopolamine (TRANSDERM-SCOP) 1 MG/3DAYS patch 1 patch 1 patch, Transdermal, Administer over 72 Hours, Once, 1 dose, On Sat07/07/21 at 1215 1207 (Patch Applied - Provider: Catalina Valentino, RN) 1400 (Due: Patch Removed - Provider: Automatic Discharge Provider - Comment: Time automatically adjusted from order being discontinued) Continuous Medication Order 07/06/2021 07/07/2021 07/08/2021 dextrose 5 % lactated ringers infusion (CANCELED) at 125 mL/hr, Intravenous, Continuous, Starting on Sat07/07/21 at 0115, Until Sat07/07/21 at 1557 0149 (New Bag - Provider: Alba Palomares, RN)0926 (New Bag - Provider: Anushka Le, LANDON)1239 (JAN Hold - Provider: User Epic - [...] 1818 (New Bag - Provider: Anushka Le, RN) 0501 (New Bag - Provider: Vani Love RN) PRN Medication Order 07/06/2021 07/07/2021 07/08/2021 bisacodyl (DULCOLAX) suppository 10 mg 10 mg, Rectal, Daily as needed, Constipation, Starting on Sat07/07/21 at 1557, Until 07/08/21 at 1629, Post-Op BUpivacaine-EPINEPHrine 0.25% -[id number] injection (CANCELED) As needed, Starting on Sat07/07/21 [...] Until 07/08/21 at 1629, Shake Well, Post-Op dvsadbpnj-yfoczzdt-nbwomtof one (MYLANTA MAXIMUM STRENGTH) 5795-9431-601 mg/30mL suspension 10 mL, Oral, Every 4 [...] at 1557 0156 (Given - Provider: Alba Palomares RN)0725 (Given - Provider: Anushka Le RN)1239 (MAR Hold - Provider: User Ubalo - Reason: Unreviewed Transfer Orders)1508 (MAR Unhold - Provider: User Ubalo) ondansetron (ZOFRAN) injection 4 mg 4 mg, Intravenous, Every 8 hours PRN, Nausea, Vomiting, Starting on Sat07/07/21 at 1557, Until 07/08/21 at 1629, Discontinue IV Zofran once able to take PO, Post-Op oxyCODONE immediate release (ROXICODONE) tablet 5 mg 5 mg, Oral, Every 4 hours PRN, Severe pain (Scale 8 - 10), Starting on Sat07/07/21 at 1557, Until 07/08/21 at 1629, Post-Op 1945 (Given - Provider: Vani Love RN) simethicone (MYLICON) chewable tablet 80 mg 80 mg, Oral, 4 times daily PRN, Flatulence, Starting on Sat07/07/21 at 1557, Until 07/08/21 at 1629, Post-Op Linked Groups Order Group 1: ketorolac (TORADOL) injection 30 mg (COMPLETED)Jump to med 30 mg, Intravenous, Every 6 hours, 3 doses, First dose on Sat07/07/21 at 2100, Last dose on Sat07/08/21 at 0900, For IV administration, give over 15 seconds., Post- Op Followed by ibuprofen (MOTRIN) tablet 600 mgJump to med 600 mg, Oral, Every 6 hours, First dose on 07/08/21 at 1500, Until Discontinued, Post-Op documented in this encounter Care Teams Advertising Editor Relationship Specialty Start Date End Date Cortney Colbert NP [address] [place] [address] PCP - General NURSE PRACTITIONER 05/06/21 10/07/22 documented as of this encounter
--- OUTSIDE RECORDS SUMMARY | 2024-11-14 19:17 | XMS_ITS | Encounter Summary ---
Author Organization [facility] Address [address] [place] [address]. [place] [address] [place] [address] Care Team Providers Care Web Programmer Name Role Phone Unavailable Primary Care Provider Unavailabl e Encounter Details Date Type Department Care Team (Late st Contact Info) Description 10/17/2002 Abstract [facility] [address] [place] [address] , Disha Jernigan MD Social History Tobacco Use Types Packs/Day Years Used Date Smoking Tobacco: Never Assessed Comments Unknown Sex and Gender Information Value Date Recorded Sex Assigned at Not on file Legal Sex Female 7:16 PM CDT Gender Identity Not on file Sexual Orientation Not on file documented as of this encounter Plan of Treatment Not on file documented as of this encounter Visit Diagnoses Not on filedocumented in this encounter
--- OUTSIDE RECORDS SUMMARY | 2024-11-14 19:18 | XMS_ITS | Encounter Summary ---
Author Organization [facility] Address [address] [place] [address] Care Team Providers Care Heavy Equipment Operating Engineer Name Role Phone Katie Kellogg MD Primary Care Provider Encounter Details Date Type Department Care Team (Latest Contact Info) Description 10/17/2017 7:38 AM JERKER - 10/17/2017 11:59 PM JERKER Hospital Encounter [facility] [phone] Zoya Leiva MD [address] [place] [address] Discharge Disposition: Discharge to home or self care Social History Tobacco Use Types Packs/Day Years Used Date Smoking Tobacco: Never Assessed Comments Unknown Sex and Gender Information Value Date Recorded Sex Assigned at Not on file Legal Sex Female 12:45 AM JERKER Gender Identity Not on file Sexual Orientation Not on file documented as of this encounter Discharge Disposition Disposition Code Departure Means Destination Discharge to home or self care documented in this encounter Plan of Treatment Not on file documented as of this encounter Visit Diagnoses Not on filedocumented in this encounter Care Teams Heavy Equipment Operating Engineer Relationship Specialty Start Date End Date Katie Kellogg MD [address] [place] [address] PCP - General 01/22/17 09/26/20 documented as of this encounter
--- OUTSIDE RECORDS SUMMARY | 2024-11-14 19:18 | XMS_ITS | Encounter Summary ---
Author Organization [facility] Address [address] [place] [address] Care Team Providers Care Ophthalmic Asst Name Role Phone Katie Kellogg MD Primary Care Provider [phone] Encounter Details Date Type Department Care Team (Late st Contact Info) Description 10/01/[address] [facility] Department of Psychology [address] [facility] [address] [place] [address] Niharika Rodriguez PSY.D. [address] [facility] [address] [place] [address] Social History Tobacco Use Types Packs/Day Years Used Date Smoking Tobacco: Never Assessed Comments Unknown Sex and Gender Information Value Date Recorded Sex Assigned at Not on file Legal Sex Female 12:45 AM ZIPPER TRIMMER Gender Identity Not on file Sexual Orientation Not on file documented as of this encounter Miscellaneous Notes * Telephone Encounter - Niharika Rodriguez PSY.D. - 10/02/2017 12:31 PM ZIPPER TRIMMER Spoke with Angela's current in-home therapist to coordinate care. Angela was seen for consultation here at [facility]. Discussed with family the importance of incorporating a CBT approach into hertreatment. Family requested that I contact her current therapist, Angela, in order to share information related to the consultation and the recommended treatment strategies. Her current therapist expressed agreement with the plan. They were encouraged to contact our office should they have any additional questions or concerns. ER TRIMMER documented in this encounter Plan of Treatment Not on file documented as of this encounter Visit Diagnoses Not on filedocumented in this encounter Care Teams Ophthalmic Asst Relationship Specialty Start Date End Date Katie Kellogg MD [address] [place] [address] PCP - General 01/22/17 09/26/20 documented as of this encounter
--- OUTSIDE RECORDS SUMMARY | 2024-11-14 19:18 | XMS_ITS | Encounter Summary ---
Author Organization [facility] Address [address] [place] [address] Care Team Providers Care Hose Wrapper Name Role Phone Katie Kellogg MD Primary Care Provider [phone] Encounter Details Date Type Department Care Team (Latest Contact Info) Description 08/21/2017 8:18 AM CDT - 08/21/2017 11:59 PM CDT Hospital Encounter [facility] [phone] Zoya Leiva MD [address] [place] [address] Discharge Disposition: Discharge to home or self care Social History Tobacco Use Types Packs/Day Years Used Date Smoking Tobacco: Never Assessed Comments Unknown Sex and Gender Information Value Date Recorded Sex Assigned at Not on file Legal Sex Female 12:45 AM MEDICAL SOCIAL CONSULTANT Gender Identity Not on file Sexual Orientation Not on file documented as of this encounter Discharge Disposition Disposition Code Departure Means Destination Discharge to home or self care documented in this encounter Plan of Treatment Not on file documented as of this encounter Visit Diagnoses Not on filedocumented in this encounter Care Teams Hose Wrapper Relationship Specialty Start Date End Date Katie Kellogg MD [address] [place] [address] PCP - General 01/22/17 09/26/20 documented as of this encounter
--- OUTSIDE RECORDS SUMMARY | 2024-11-14 19:18 | XMS_ITS | Encounter Summary ---
Author Organization [facility] Healthcare Address [address] [place] [address] Care Team Providers Care Medical Assisting Program Director Name Role Phone Katie Kellogg MD Primary Care Provider Encounter Details Date Type Department Care Team (Latest Contact Info) Description 08/28/2017 3:24 PM CDT - 08/28/2017 11:59 PM CDT Hospital Encounter [facility] [phone] Zoya Leiva MD [address] [place] [address] Discharge Disposition: Discharge to home or self care Social History Tobacco Use Types Packs/Day Years Used Date Smoking Tobacco: Never Assessed Comments Unknown Sex and Gender Information Value Date Recorded Sex Assigned at Not on file Legal Sex Female 12:45 AM HANDLE SEWER Gender Identity Not on file Sexual Orientation Not on file documented as of this encounter Discharge Disposition Disposition Code Departure Means Destination Discharge to home or self care documented in this encounter Plan of Treatment Not on file documented as of this encounter Visit Diagnoses Not on filedocumented in this encounter Care Teams Medical Assisting Program Director Relationship Specialty Start Date End Date Katie Kellogg MD [address] [place] [address] PCP - General 01/22/17 09/26/20 documented as of this encounter
--- OUTSIDE RECORDS SUMMARY | 2024-11-14 19:18 | XMS_ITS | Encounter Summary ---
Author Organization [facility] Healthcare Address [address] [place] [address] Care Team Providers Care Coffee Break Attendant Name Role Phone Katie Kellogg MD Primary Care Provider Encounter Details Date Type Department Care Team (Latest Contact Info) Description 07/15/2018 2:11 PM CDT - 07/15/2018 11:59 PM CDT Hospital Encounter [facility] [place] [address] Zoya Leiva MD [address] [facility] [address] [place] [address] Evon Carlisle AUD Discharge Disposition: Discharge to home or self care Social History Tobacco Use Types Packs/Day Years Used Date Smoking Tobacco: Never Assessed Comments Unknown Sex and Gender Information Value Date Recorded Sex Assigned at Not on file Legal Sex Female 12:45 AM FUNERAL PREARRANGEMENT COUNSELOR Gender Identity Not on file Sexual Orientation Not on file documented as of this encounter Discharge Disposition Disposition Code Departure Means Destination Discharge to home or self care documented in this encounter Progress Notes * Evon Carlisle AUD - 07/15/2018 2:54 PM CDT [facility] Therapy and Audiology Services Progress Note Name: Angela Peterson : 2000 Age: 17 y.o. 6 m.o. Encounter date: 07/15/2018 Time: 2:30pm Background: Angela has a history of autism and misophonia. She presented to the clinic for a misophonia evaluation and individual misophonia management plan on 08/10/2017. She decided to pursue Widex hearing aids at this time for misophonia management. In June 2018, Angela's hearing aids were sent in to repair and then returned to her home after they were repaired. Angela reports today that the microphones are enabled on her hearing aids and that she can not tolerate them. Connected her Widex hearing aids to the software and updated the programming so the microphones aredisabled. Angela reported that the hearing aids were much more comfortable. Plan/Recommendations: 1. Follow up as needed. MAURA Saunders Wood Engraver documented in this encounter Plan of Treatment Not on file documented as of this encounter Visit Diagnoses Not on filedocumented in this encounter Care Teams Coffee Break Attendant Relationship Specialty Start Date End Date Katie Kellogg MD [address] [place] [address] PCP - General 01/22/17 09/26/20 documented as of this encounter
--- OUTSIDE RECORDS SUMMARY | 2024-11-14 19:18 | XMS_ITS | Encounter Summary ---
Author Organization [facility] Healthcare Address [address] [place] [address] Care Team Providers Care Printing Pressman Name Role Phone Katie Kellogg MD Unavailable [phone] Katie Kellogg MD Primary Care Provider [phone] Encounter Details Date Type Department Care Team (Late st Contact Info) Description 09/27/2020 7:44 PM FISH WARDEN - 09/27/2020 9:24 PM FISH WARDEN Emergency [address] [address] Unknown, NotiJuan José Hurtado[address] [address] Discharge Disposition: Discharge to home or self care Social History Tobacco Use Types Packs/Day Years Used Date Smoking Tobacco: Never Assessed Comments No Sex and Gender Information Value Date Recorded Sex Assigned at Not on file Legal Sex Female 12:45 AM FISH WARDEN Gender Identity Not on file Sexual Orientation Not on file documented as of this encounter Last Filed Vital Signs Vital Sign Reading Time Taken Comments Blood Pressure 112/72 09/27/2020 8:22 PM FISH WARDEN Pulse 62 09/27/2020 8:22 PM FISH WARDEN Temperature 36.8 ??C (98.3 ??F) 09/27/2020 8:22 PM CS T Respiratory Rate - - Oxygen Saturation 99% 09/27/2020 8:22 PM FISH WARDEN Inhaled Oxygen Concentration - - Weight 77.6 kg (171 lb 1.3 oz) 09/27/2020 8:22 P M FISH WARDEN Height 160 cm (5' 3 ) 09/27/2020 8:22 PM FISH WARDEN Body Mass Index 30.31 09/27/2020 8:22 PM FISH WARDEN documented in this encounter Medications at Time of Discharge amoxicillin-clavu lanate (AUGMENTIN) 875-125 mg per tablet TK 1 T PO BID FOR 10 DAYS 0 04/22/2019 06/30/2024 documented as of this encounter Discharge Disposition Disposition Code Departure Means Destination Discharge to home or self care documented in this encounter Plan of Treatment Not on file documented as of this encounter Procedures Procedure Name Priority Date/Time Associated Diagnosis Comments SCAN - LABS 09/29/2020 12:00 AM FISH WARDEN URINALYSIS, COMPLETE W/REFLEX TO CULTURE Routine 09/27/2020 8:50 PM FISH WARDEN CBC WITH AUTO DIFFERENTIAL Routine 09/27/2020 8:09 PM FISH WARDEN LIPASE Routine 09/27/2020 8:09 PM FISH WARDEN COMPREHENSIVE METABOLIC PANEL Routine 09/27/2020 8:09 PM FISH WARDEN XR ABDOMEN 2 VIEWS W CHEST 1 VIEW 09/27/2020 7:57 PM FISH WARDEN documented in this encounter Results * SCAN - LABS (09/29/2020 12:00 AM FISH WARDEN) Narrative 09/29/2020 12:00 AM FISH WARDEN Ordered by an unspecified provider. us Historical Provider Final Res ult * (ABNORMAL) URINALYSIS, COMPLETE W/REFLEX TO CULTURE (09/27/2020 8:50 PM FISH WARDEN) Ur Collection Type CLEAN CATCH [facility] Ur Culture Indicated? C S INDICATED [facility] Comment: Culture report to follow. Urine Color YELLOW YELLOW [facility] Urine Clarity Slightly-Jojo udy CLEAR [facility] Urine Glucose (UA) NORMAL NORMAL mg/dL [facility] Urine Bilirubin NEGATIVE NEGATIVE mg/dl [facility] Urine Ketones NEGATIVE NEGATIVE mg/dL [facility] Ur Specific [place] 1.024 1.005 - 1.025 [facility] Urine Blood NEGATIVE NEGATIVE mg/dl [facility] Urine pH 7.0 5.0 - 8.0 [facility] Urine Protein NEGATIVE NEGATIVE mg/dL [facility] Urine Urobilinogen NORMAL NORMAL mg/dL [facility] Urine Nitrite NEGATIVE NEGATIVE [facility] Ur Leukocyte Esterase 250(A) NEGATIVE Mikey/ul [facility] Ur Microscopic Review Indicated or Ordered [facility] Urine RBC 3-5 0 - 2 /HPF [facility] Urine WBC 21-50 0 - 2 /HPF [facility] Urine Mucus Present /LPF [facility] Ur Squamous Epith Cells 11-20 /HPF [facility] 09/27/2020 8:50 PM FISH WARDEN 09/27/2020 8:30 PM FISH WARDEN Narrative [facility] - 09/27/2020 8:50 PM FISH WARDEN Indication(s) for ordering ?? Pain-pelv/flank/suprapubc mg Clean catch Resulting Agency Comment ER Juan José NELSON LAB URINE ORDERABLES Final R esult Performing Organization Address City/[facility]/ZIP Co de Phone Number [address] [phone] * Lipase (09/27/2020 8:09 PM FISH WARDEN) Lipase 25 13 - 60 U/L [facility] 09/27/2020 8:09 PM FISH WARDEN 09/27/2020 8:19 PM FISH WARDEN Narrative Resulting Agency Comment ER Juan José NELSON LAB BLOOD ORDERABLES Final R esult Performing Organization Address City/[facility]/ZIP Co de Phone Number [address] [phone] * Comprehensive metabolic panel (09/27/2020 8:09 PM FISH WARDEN) Sodium 138 135 - 145 mmol/L [facility] Potassium 3.7 3.3 - 5.1 mmol/L [facility] Chloride 104 96 - 108 mmol/L [facility] Carbon Dioxide 26 22 - 32 mmol/L [facility] Anion Gap 8 7 - 16 [facility] Glucose 97 70 - 100 mg/dL [facility] BUN 13 8 - 25 mg/dL [facility] Creatinine 0.7 0.5 - 1.1 mg/dL [facility] Comment: NOTE: Estimated GFR (Cockroft-Gault) will NOT be calculated unless patient Height and Weight were entered. Also, Kidney Disease Stage (GFR) and Estimated GFR (Cockroft-Gault) will NOT be calculated if Creatinine result is <0.2. Kidney Disease Stage >90 mL/MIN [facility] Comment: NOTE; ??The GFR is an estimated value using the creatinine, sex, age, and race of the patient. THE Estimated Kidney Disease GFR is validated for AGES 18-70 YEARS STAGE ?mL/Min ?DESCRIPTION ??1 ?90 mL/min or more ?Normal or elevated GFR ??2 ? 60-89 mL/min ?Mildly decreased GFR ??3 ? 30-59 mL/min ?Moderately decreased GFR ??4 ? 15-29 mL/min ?Severely decreased GFR ??5 ? <15 mL/min ? Kidney failure or on dialysis Est GFR (Cockcroft-G) 128 ml/MIN [facility] Comment: Estimated GFR(Cockroft-Gault)is used to calculate patient medication dosage Calcium 9.4 8.6 - 10.3 mg/dL [facility] Total Protein 6.9 6.4 - 8.3 g/dL [facility] Albumin 4.4 3.5 - 5.0 g/dL [facility] Globulin 2.5 2.3 - 3.5 gm/dL [facility] Albumin/Globulin Ratio 1.8 1.1 - 1.8 [facility] Total Bilirubin <0.2 0.0 - 1.2 mg/dL [facility] AST 12 0 - 32 U/L [facility] ALT 18 0 - 33 U/L [facility] Alkaline Phosphatase 68 35 - 104 U/L [facility] 09/27/2020 8:09 PM FISH WARDEN 09/27/2020 8:19 PM FISH WARDEN Narrative Resulting Agency Comment ER us Juan José NELSON LAB BLOOD ORDERABLES Final R esult [facility] [address] [place] [address], [facility] [phone] * (ABNORMAL) CBC with auto differential (09/27/2020 8:09 PM FISH WARDEN) WBC 8.6 3.8 - 9.9 X10 3/ul [facility] RBC 4.47 3.90 - 5.20 x10 6/ul [facility] Hemoglobin 12.6 11.9 - 15.5 g/dL [facility] Hct 38.5 35.6 - 45.5 % [facility] MCV 86.1 81.3 - 96.4 fl [facility] MCH 28.2 27.1 - 33.3 pg [facility] MCHC 32.7 32.3 - 35.7 g/dl [facility] RDW 13.2 11.1 - 14.9 % [facility] Plt Count 201 150 - 400 x10 3/ul [facility] MPV 13.0(H) 9.1 - 12.3 fl [facility] Neut % 72.5 % [facility] Immature Gran % 0.2 % [facility] Lymph % 20.7 % [facility] [place] % 5.8 % [facility] Eos % 0.5 % [facility] AUTO BASO % 0.3 % [facility] NEUTROPHIL ABS # 6.2 1.7 - 6.5 x10 3/ul [facility] Immature Gran # 0.0 0.0 - 0.1 x10 3/ul [facility] Absolute Lymphs (auto) 1.8 0.8 - 3.3 x10 3/ul [facility] Absolute Monos (auto) 0.5 0.2 - 0.8 x10 3/ul [facility] Absolute Eos (auto) 0.0 0.0 - 0.5 x10 3/ul [facility] BASOPHIL ABS # 0.0 0.0 - 0.1 x10 3/ul [facility] Nucleat RBC Rel Count 0.0 #/100WBC [facility] NRBC abs 0.00 0.00 - 0.01 x10 3/ul [facility] Absolute Neutrophils 6,200 200 - 8,000 /ul [facility] 09/27/2020 8:09 PM FISH WARDEN 09/27/2020 8:19 PM FISH WARDEN Narrative Resulting Agency Comment ER us Juan José NELSON LAB BLOOD ORDERABLES Final R esult [facility] [address] [place] [address], [facility] [phone] * XR Abdomen 2 Views W Chest 1 View (09/27/2020 7:57 PM FISH WARDEN) Anatomical Region Laterality Modality Body, Abdomen N/A Radiographic Ann Marie ging 09/27/2020 8:53 PM FISH WARDEN Narrative 09/27/2020 8:53 PM FISH WARDEN Patient Name: ANGELA KIRKLAND ?Ordering Dr: Juan José Jain PA-C ?? D.O.B: 2000 ? Exam Date: 09/27/ ?? 1957 ?? Age: 19 ?Sex: Female ? MR#: [id number] ?? Loc: ? RADIOLOGY REPORT ?? Order #[id number] ?? Radiology ? Obstruction Series AP/UP/Chest ? Signed ?? EXAM DESCRIPTION: ?? Obstruction Series AP/UP/Chest ? REASON FOR STUDY: ?? Constipation and nausea for 1 week. ? TECHNIQUE: ?? Frontal chest, supine abdomen and upright/decubitus abdomen ?? radiographic views acquired. ? COMPARISON: ?? None ? FINDINGS: ? LUNGS/PLEURA: ??No focal consolidation or pneumothorax. No pleural effusion. ? HEART/MEDIASTINUM: ??Heart size is normal. Normal mediastinal and hilar ?? contours. ? FREE-AIR: ??None. No abnormal gas collections. ? BOWEL GAS PATTERN: ??Nonobstructive pattern. No dilated loops or air fluid ?? levels. ? SOFT TISSUES: ??No significant abnormal calcifications. ? HARDWARE/LINES/TUBES: ??None. ? BONES: ??No significant abnormality. ? OTHER: ??No other significant finding. ? IMPRESSION: ?? No acute abnormalities. ? THIS IS AN ELECTRONICALLY VERIFIED FINAL REPORT ?? 09/27/2020 8:53 PM - Electronically signed by Jose F Gonzalez ?? Jose F Gonzalez ? KT ?? D: ??09/27/2020 8:53 PM ?? T: ? Report ID: [id number] ?? Reading Location: ??[id number] ? REPORT ELECTRONICALLY SIGNED IN OTHER VENDOR SYSTEM ?? Resulting Agency Comment E Procedure Note Jose F Gonzalez MD - 09/27/2020 Patient Name: MARITAJayleen Dr: Juan José Jain PA-C, D.O.B: 2000 Exam Date: 09/27/201956 Age: 19 Sex: Female MR#: [id number] Loc: RADIOLOGY REPORT Order #[id number] Radiology Obstruction Series AP/UP/Chest Signed EXAM DESCRIPTION: Obstruction Series AP/UP/Chest REASON FOR STUDY: Constipation and nausea for 1 week. TECHNIQUE: Frontal chest, supine abdomen and upright/decubitus abdomen radiographic views acquired. COMPARISON: None FINDINGS: LUNGS/PLEURA: No focal consolidation or pneumothorax. No pleuraleffusion. HEART/MEDIASTINUM: Heart size is normal. Normal mediastinal and hilar contours. FREE-AIR: None. No abnormal gas collections. BOWEL GAS PATTERN: Nonobstructive pattern. No dilated loops or air fluid levels. SOFT TISSUES: No significant abnormal calcifications. HARDWARE/LINES/TUBES: None. BONES: No significant abnormality. OTHER: No other significant finding. IMPRESSION: No acute abnormalities. THIS IS AN ELECTRONICALLY VERIFIED FINAL REPORT 09/27/2020 8:53 PM - Electronically signed by Jose F Gonzalez KT T: Report ID: [id number] Reading Location: [id number] REPORT ELECTRONICALLY SIGNED IN OTHER VENDOR SYSTEM Juan José Jain PA IMG XR PROCEDURES Final Resu lt documented in this encounter Visit Diagnoses Not on filedocumented in this encounter Care Teams Printing Pressman Relationship Specialty Start Date End Date Katie Kellogg MD [address] [place] [address] PCP - General 09/27/20 09/27/20 Katie Kellogg MD [address] [place] [address] 09/27/20 documented as of this encounter
--- OUTSIDE RECORDS SUMMARY | 2024-11-14 19:18 | XMS_ITS | Encounter Summary ---
Author Organization [facility] Healthcare Address [address] [place] [address] Care Team Providers Care Shell Assembler Name Role Phone Katie Kellogg MD Unavailable [phone] Neda Carranza NP Primary Care Provider [phone] Kyra Prieto NP Unavailable [phone] Encounter Details Date Type Department Care Team (Latest Contact Info) Description 10/04/2024 6:12 PM ONCOLOGY PHYSICIAN ASSISTANT - 10/04/2024 11:59 PM ONCOLOGY PHYSICIAN ASSISTANT Hospital Encounter [facility] [address] [place], [place] [id number] Pharyngitis, unspecified etiology; Neck muscle strain, initial encounter Discharge Disposition: Discharge to home or self care Social History Tobacco Use Types Packs/Day Years Used Date Smoking Tobacco: Never PHQ-2 Answer Date Recorded PHQ-2 Total Score (If total score is 3 or more points, staff should administer the PHQ-9) 6 06/30/2024 Comments No Sex and Gender Information Value Date Recorded Sex Assigned at Not on file Legal Sex Female 12:45 AM ONCOLOGY PHYSICIAN ASSISTANT Gender Identity Not on file Sexual Orientation Not on file documented as of this encounter Medications at Time of Discharge albuterol HFA (PROVENTIL HFA,VENTOLIN HFA,PROAIR HFA) 90 mcg/actuation inhaler INHALE 2 PUFFS BY MOUTH EVERY 4 TO 6 HOURS NEEDED FOR SHORTNESS OF BREATH OR WHEEZING clotrimazole-beta methasone (LOTRISONE) cream Apply by topical route for 5 days. methylphenidate ER (CONCERTA) 18 mg CR tablet Take 2 tablets (36 mg total) by mouth daily methylPREDNISolon e (MEDROL DOSEPACK) 4 mg DosepackIndicatio ns:Pharyngitis, unspecified etiology,Neck muscle strain, initial encounter Take 6 tabs on day 1, reduce dose by 1 daily until prescription is complete. 1 packet 10/04/2024 NuvaRing 0.12-0.015 mg/24 hr vaginal ring Insert 1 vaginal ring every month by vaginal route as directed for 30 days, for regulate periods. 09/29/2024 traMADoL (ULTRAM) 50 mg tablet triamcinolone (KENALOG) 0.1 % ointment 09/29/2024 citalopram (CeleXA) 20 mg tablet Take 1 tablet (20 mg total) by mouth daily 4 hydrOXYzine (ATARAX) 10 mg tablet Take 1 tablet (10 mg total) by mouth every 8 (eight) hours as needed for anxiety 60 tablet 1 06/30/2024 4 documented as of this encounter Discharge Disposition Disposition Code Departure Means Destination Discharge to home or self care documented in this encounter Plan of Treatment Not on file documented as of this encounter Procedures Procedure Name Priority Date/Time Associated Diagnosis Comments THROAT CULTURE Routine 10/04/2024 10:01 PM ONCOLOGY PHYSICIAN ASSISTANT Pharyngitis, unspecified etiology Neck muscle strain, initial encounter documented in this encounter Results * Throat culture Throat (10/04/2024 10:01 PM ONCOLOGY PHYSICIAN ASSISTANT) Report Final Report: No growth of pathogens. Comment:Testing performed by : [facility], [address] [place] [address] Throat 10/04/2024 10:0 1 PM ONCOLOGY PHYSICIAN ASSISTANT 10/05/2024 12:57 AM ONCOLOGY PHYSICIAN ASSISTANT Narrative DERIAN Ugarte 10/06/2024 5:47 PM ONCOLOGY PHYSICIAN ASSISTANT Testing performed by [facility] Microbiology Laboratory ([phone]). us Madie Tapia NP LAB MICROBIOLOGY - GENERAL ORD ERABLES Final Result [facility]RIAN [id number] [place] [address] documented in this encounter Visit Diagnoses Diagnosis Pharyngitis, unspecified etiology Neck muscle strain, initial encounter documented in this encounter Care Teams Shell Assembler Relationship Specialty Start Date End Date Neda Carranza NP [address] [place] [address] PCP - General Family Medicine 06/30/24 Katie Kellogg MD [address], [place] [id number] 09/27/20 Kyra Prieto NP [address] [address] Nurse Practitioner Obstetrics and Gynecology 06/30/24 documented as of this encounter
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
--- OUTSIDE RECORDS SUMMARY | 2024-11-14 19:18 | XMS_ITS | Encounter Summary ---
Author Organization [facility] Care Team Providers Care Structural Architect Name Role Phone Unavailable Primary Care Provider Unavailabl e Encounter Details Date Type Department Care Team (Latest Contact Info) Description 12/22/2013 12:01 AM ECOLOGIST TECHNICIAN - 01/08/2014 12:02 PM ECOLOGIST TECHNICIAN Hospital Encounter [facility] Active autistic disorder Social History Tobacco Use Types Packs/Day Years Used Date Smoking Tobacco: Never Assessed Comments Unknown Sex and Gender Information Value Date Recorded Sex Assigned at Not on file Legal Sex Female 12:45 AM ECOLOGIST TECHNICIAN Gender Identity Not on file Sexual Orientation Not on file documented as of this encounter Plan of Treatment Not on file documented as of this encounter Visit Diagnoses Diagnosis Active autistic disorder Autistic disorder, current or active state documented in this encounter
--- OUTSIDE RECORDS SUMMARY | 2024-11-14 19:18 | XMS_ITS | Encounter Summary ---
Author Organization [facility] Healthcare Address [address] [place] [address] Care Team Providers Care Patent Chemist Name Role Phone Katie Kellogg MD Primary Care Provider Encounter Details Date Type Department Care Team (Late st Contact Info) Description 07/24/2017 11:02 AM CDT - 07/25/2017 1:36 PM CDT Hospital Encounter [address] [phone] Lucie Tovar MD PhD [address] [phone] [place] [address] Rebecca Del Real MD [address] [place] [address] [address] [place] [address] Discharge Disposition: Discharge to psych hospital or psych unit Social History Tobacco Use Types Packs/Day Years Used Date Smoking Tobacco: Never Assessed Comments Unknown Sex and Gender Information Value Date Recorded Sex Assigned at Not on file 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 Gender Identity Not on file Sexual Orientation Not on file documented as of this encounter Last Filed Vital Signs Vital Sign Reading Time Taken Comments Blood Pressure 100/54 07/25/2017 12:08 PM CDT Pulse 81 07/25/2017 12:08 PM CDT Temperature - - Respiratory Rate - - Oxygen Saturation 100% 07/25/2017 12: 08 PM CDT Inhaled Oxygen Concentration - - Weight 67.4 kg (148 lb 9.4 oz) 07/24/2017 9:21 P M CDT Height 159 cm (5' 2.6 ) 07/24/2017 9:21 PM CDT Body Mass Index 26.66 07/24/2017 9:21 PM CDT Body Mass Index Percentile 90.51% 07/24/2017 9:2 1 PM CDT Growth Chart: [facility] (Girls, 2- 20 Years) documented in this encounter Discharge Summaries * Miscellaneous, Not In File - 07/25/2017 5:00 AM CDT [facility]ICAL[facility]URGICAL DISCHARGE SUMMARY NAME: ANGELA KIRKLAND DATE OF ADMISSION: 07/24/2017 DATE OF DISCHARGE: 07/25/2017 DATE OF : [address] Kellogg, Thank you for referring your patient, Angela to the [facility] at [facility]. This letter will serve as a summary of her hospital stay. As you know, Angela is a 16-year-old female with major depressive disorder who presented to our emergency room with suicidal ideation with plan. Angela endorsed increased stress at school. She reports that she was feeling unsupported regarding her IEP, in particular with her algebra class. She discussed with her school counselor that she had suicidal thoughts with a plan to take pills in an effort to harm herself. She was referred to our Emergency Department for further evaluation and management. Angela was admitted overnight for bed placement and further management and evaluation of her depression and suicidal ideation. On 07/25/17, Angela was transferred from [facility] to [facility] for ongoing treatment and evaluation for her major depressive disorder with suicidal ideation. Thank you again for referring your patient, Angela to the [facility] at [facility]. Electronically Authenticated and Edited by: Cathy Newsome MD On 07/26/2017 07:57 AM CDT Cathy Newsome M.D. LEH:alina #[id number] [id number] cc: Katie Kellogg M.D. documented in this encounter Discharge Disposition Disposition Code Departure Means Destination Discharge to psych hospital or psych unit Other documented in this encounter Plan of Treatment Not on file documented as of this encounter Procedures Procedure Name Priority Date/Time Associated Diagnosis Comments RPR STAT 07/25/2017 9:18 AM CDT DISCHARGE LABORATORY CUMULATIVE REPORT 07/25/2017 12:00 AM CDT N. GONORRHOEAE/C. TRACHOMATIS AMPLIFICATION TEST STAT 07/24/2017 1:03 PM CDT DIFFERENTIAL AUTO STAT 07/24/2017 12: 16 PM CDT SAVE, SERUM STAT 07/24/2017 12:16 PM CDT CBC WITHOUT DIFFERENTIAL STAT 07/24/2017 12:16 PM CDT TSH STAT 07/24/2017 12:16 PM CDT T4, FREE STAT 07/24/2017 12:16 PM CDT COMPREHENSIVE METABOLIC PANEL STAT 07/24/2017 12:16 PM CDT URINALYSIS STAT 07/24/2017 11:56 AM CDT DRUGS OF ABUSE SCREEN, URINE WITHOUT CONFIRMATION STAT 07/24/2017 11:56 AM CDT HCG, URINE, QUALITATIVE STAT 07/24/2017 11:56 AM CDT URINALYSIS, MICROSCOPIC ONLY STAT 07/24/2017 11:56 AM CDT BACTERIAL VAGINOSIS STAIN STAT 07/24/2017 11:56 AM CDT TRICHOMONAS STAT 07/24/2017 11:56 AM CDT HIV RAPID ORAL, [facility] POC STAT 07/24/2017 10:30 AM CDT documented in this encounter Results * RPR, serum (07/25/2017 9:18 AM CDT) RPR Nonreactive Nonreactive [facility] Blood specimen (specimen) 07/25/2017 9:18 AM CDT 07/25/2017 9:23 AM CDT Masoud Moore MD LAB MICROBIOLOGY - GENERAL ORDERABLES Final Result [facility] Department [place] [address] * DISCHARGE LABORATORY CUMULATIVE REPORT (07/25/2017 12:00 AM CDT) Narrative 07/25/2017 12:00 AM CDT Ordered by an unspecified provider. Serafin Willingham MD LAB BLOOD ORDERABLES Ary l Result * N. gonorrhoeae/C. trachomatis amplification test (07/24/2017 1:03 PM CDT) Report Final Report: Negative for: ??Chlamydia trachomatis rRNA Negative for: ??Neisseria gonorrhoeae rRNA [facility] Urine 07/24/2017 1:03 PM CDT 07/24/2017 1:34 PM CDT Narrative [facility] - 07/24/2017 1:35 PM CDT Testing performed by the Gen-Probe [employer] APTIMA Combo 2 Assay. This nucleic acid amplification test (NAAT) detects ribosomal RNA (rRNA) from Chlamydia trachomatis and Neisseria gonorrhoeae using target capture,and Lead Ingot Molder-Mediated Amplification (TMA). This test is approved by the [place] Food and Drug Administration for endocervical, vaginal, and male urethral swab specimens, in addition to male and female urine specimens. The performance characteristics for these specimen types have been verified by the [facility].The performance characteristics of this assay for pharyngeal and rectal specimens collected from cervical swab collection devices have been validated and verified by the [facility]. Verification studies support a lack of cross reactivity with other Neisseria species considered normal oropharyngeal bacterial kaushik. Rectal swab specimens containing excess stool may be inhibitory and result in false negatives for Chlamydia trachomatis or Neisseria gonorrhoeae. The performance characteristics of this test have not been evaluated in women or individuals less than 16 years of age. Charlene C Copper LAB MICROBIOLOGY - GENERAL ORDER ABBEY Final Result Performing Organization Address City/[facility]/[place] [address] * Save, Serum (07/24/2017 12:16 PM CDT) Pathologist [facility] Save, Serum 1.0 mL stored in Serology for 3 months in freezer location _.[id number] 14:32:09 CDT [facility] Blood specimen (specimen) 07/24/2017 12:16 PM CDT 07/24/2017 12:16 PM CDT Charlene C Copper LAB BLOOD ORDERABLES Final Resul t Performing Organization Address [facility] [place] [address] * Comprehensive metabolic panel (07/24/2017 12:16 PM CDT) [facility] Sodium 138 135 - 145 mmol/L [facility] Potassium, pl 3.6 3.3 - 4.9 mmol/L [facility] CO2 24 20 - 30 mmol/L [facility] BUN 14 9 - 18 mg/dL [facility] Glucose 109 70 - 199 mg/dL [facility] Comment: Interpretive Data Random glucose greater than or equal to 200 mg/dL with relevant clinical symptoms is diagnostic for diabetes when repeated on a subsequent day. Reference: Diabetes Care 2005;28:S37-S42. Current interpretive data was last revised on 2013. Creatinine 0.7 0.4 - 1.0 mg/dL [facility] Calcium 9.5 8.5 - 10.3 mg/dL [facility] Chloride 108 100 - 114 mmol/L [facility] Albumin 4.4 3.2 - 5.0 g/dL [facility] AST 17 10 - 50 Units/L [facility] Comment:Hemolyzed; results m ay be falsely elevated. ALT 14 7 - 45 Units/L [facility] Alk phos 75 70 - 260 Units/L [facility] Bilirubin, total 0.2 0.0 - 1.2 mg/dL [facility] Protein, pl 6.5 6.5 - 8.5 g/dL [facility] Anion gap 6 mmol/L [facility] Blood specimen (specimen) 07/24/2017 12:16 PM CDT 07/24/2017 12:16 PM CDT Charlene C Copper LAB BLOOD ORDERABLES Final Resul t Performing Organization Address [facility] de Phone Number [facility] [place] [address] * TSH (07/24/2017 12:16 PM CDT) Thyroid Stimulating Hormone 1.53 0.30 - 4.20 mcIUnit/mL [facility] Comment: Interpretive Data: TSH concentration may range up to 100 mcIUnit/ml due to surge of TSH production on the first day of life and then fall gradually to adult levels by one month of age. Current [facility] data was last revised as of 03/25/2006. Blood specimen (specimen) 07/24/2017 12:16 PM CDT 07/24/2017 12:16 PM CDT Charlene C Copper LAB BLOOD ORDERABLES Final Resul t Performing Organization Address [facility] Co de Phone Number [facility] [place] [address] * T4, free (07/24/2017 12:16 PM CDT) Free T4 1.09 0.90 - 1.70 ng/dL [facility] Comment: Interpretive data: Free T4 concentrations rise acutely to as high as 5 ng/dl on the first day of life following TSH surge and then decrease gradually to adult levels by one month of age. Current [facility] data was last revised on 06. Blood specimen (specimen) 07/24/2017 12:16 PM CDT 07/24/2017 12:16 PM CDT Charlene C Copper LAB BLOOD ORDERABLES Final Resul t [facility] [place] [address] * Differential, auto (07/24/2017 12:16 PM CDT) Neutrophil abs 5.59 1.70 - 6.50 K/cumm [facility] Lymphocyte abs 1.55 0.80 - 3.30 K/cumm [facility] Monocyte abs 0.39 0.20 - 0.80 K/cumm [facility] Eosinophil abs 0.06 0.00 - 0.50 K/cumm [facility] Basophil abs 0.03 0.00 - 0.10 K/cumm [facility] Imm gran abs 0.02 0.00 - 0.10 K/cumm [facility] Neutrophil pct 73.1 % [facility] Lymphocyte pct 20.3 % [facility] Monocyte pct 5.1 % [facility] Eosinophil pct 0.8 % [facility] Basophil pct 0.4 % [facility] Imm gran pct 0.3 % [facility] Blood specimen (specimen) 07/24/2017 12:16 PM CDT 07/24/2017 12:16 PM CDT Charlene C Copper LAB BLOOD ORDERABLES Final Resul t [facility] [place] [address] * (ABNORMAL) CBC without differential (07/24/2017 12:16 PM CDT) WBC 7.64 3.80 - 9.90 K/cumm [facility] RBC 4.12 3.90 - 5.20 M/cumm [facility] Hgb 11.7(L) 11.9 - 15.5 g/dL [facility] Hct 34.8(L) 35.6 - 45.5 % [facility] MCV 84.5 81.3 - 96.4 fL [facility] MCH 28.4 27.1 - 33.3 pg [facility] MCHC 33.6 32.3 - 35.7 g/dL [facility] RDW CV 13.4 11.1 - 14.9 % [facility] RDW SD 41.4 35.7 - 48.1 fL [facility] Plt 172 150 - 400 K/cumm [facility] MPV 13.2(H) 9.1 - 12.3 fL [facility] NRBC abs 0.00 0.00 - 0.01 K/cumm [facility] NRBC 0.0 % [facility] Blood specimen (specimen) 07/24/2017 12:16 PM CDT 07/24/2017 12:16 PM CDT Charlene C Copper LAB BLOOD ORDERABLES Final Resul t Performing Organization Address [facility] de Phone Number [facility] [place] [address] * (ABNORMAL) Urinalysis, microscopic only (07/24/2017 11:56 AM CDT) WBC, ur < 5/HPF None Seen [facility] RBC, ur None Seen None Seen [facility] Epithelial cells, renal, ur None Seen None Seen [facility] Epithelial cells, squamous, ur 5-10/HPF(A ) [facility] Urine 07/24/2017 11:5 6 AM CDT 07/24/2017 12:00 PM CDT Charlene C Copper LAB URINE ORDERABLES Final Resul t Performing Organization Address [facility] Co de Phone Number [facility] [place] [address] * (ABNORMAL) Urinalysis (07/24/2017 11:56 AM CDT) Color, ur Yellow [facility] Clarity, ur Cloudy(A) Clear [facility] Specific gravity, ur 1.016 1.008 - 1.022 [facility] pH, ur 7.0 [facility] Albumin, ur Negative Negative [facility] Glucose, ur ql Negative Negative [facility] Ketones, ur Negative Negative [facility] Bilirubin, ur Negative Negative [facility] Blood, ur Negative Negative [facility] Urobilinogen, ur 0.2 EhrUnit/dL [facility] Nitrites, ur Negative Negative [facility] Leukocyte esterase, ur 1+(A) Negative [facility] Urine 07/24/2017 11:5 6 AM CDT 07/24/2017 12:00 PM CDT us Charlene C Copper LAB URINE ORDERABLES Final Resul t Performing Organization Address [facility] de Phone Number [facility] Department [place] [address] * Drug screen, urine (07/24/2017 11:56 AM CDT) Drug screen, ur Negative [facility] Comment: Interpretive Data This test detects the presence of approximately 50 substances using LC-tandem mass spectrometry. For a list of specific compounds and detection limits refer to the Lab Test Guide Book. While this technique is highly specific, false-positive and false-negative findings may occur in very rare circumstances. Contact the Line Installer Trolley evaluation engineer ([phone]) for consultation if needed. This test was developed and its performance characteristics determined by [facility]. It has not been cleared or approved by the U.S. Food and Drug Administration. Current interpretive data was last revised 2017. Director Review Not Indicated [facility] Urine 07/24/2017 11:5 6 AM CDT 07/24/2017 12:00 PM CDT us Charlene C Copper LAB URINE ORDERABLES Final Resul t Performing Organization Address [facility] [place] [address] * HCG, urine, qualitative (07/24/2017 11:56 AM CDT) HCG, ur Negative Negative [facility] Urine 07/24/2017 11:5 6 AM CDT 07/24/2017 12:00 PM CDT Charlene C Copper LAB URINE ORDERABLES Final Resul t Performing Organization Address [facility] [place] [address] * Trichomonas (07/24/2017 11:56 AM CDT) Report Final Report: Trichomonas target DNA not detected [facility] Organism TRICHOMONAS TARGET DNA NOT DETECTED [facility] Vaginal 07/24/2017 11:5 6 AM CDT 07/24/2017 12:47 PM CDT Narrative [facility] - 07/24/2017 12:47 PM CDT Testing performed on and after 03/11/17 performed at the [facility] using Nucleic Acid Amplification with the [employer] Xpert TV Assay. ??This assay detects DNA from Trichomonas vaginalis using Real-Time PCR. ??This test is cleared by the [place] Food and Drug Administration for endocervical swabs, vaginal swabs, female urine (first-catch), and male urine (first-catch). ??The performance characteristics for these specimen types have been verified by the [facility]. ??Excess blood in specimens may be inhibitory and result in false negative results. ??The performance of this test has not been evaluated in women or individuals less than 18 years of age. Testing performed before 03/11/17 was performed by culture using the InPouch TV method at [facility] [place] [facility]. us Charlene C Copper LAB MICROBIOLOGY - GENERAL ORDER ABBEY Final Result Performing Organization Address City/[facility]/ZIP Co de Phone Number [facility] [place] [address] * Bacterial vaginitis screen (07/24/2017 11:56 AM CDT) Direct Specimen Exam Stain: Gram stain indicates altered vaginal kaushik, not diagnostic of bacterial vaginosis. [facility] Vaginal 07/24/2017 11:5 6 AM CDT 07/24/2017 12:47 PM CDT Narrative [facility] - 07/24/2017 12:47 PM CDT us Charlene C Copper LAB MICROBIOLOGY - GENERAL [place] [address] * HIV Rapid Oral, [facility] P[facility] (07/24/2017 10:30 AM CDT) HIV Rapid Oral, Point of Care Negative Negative [facility] Oral 07/24/2017 10:3 0 AM CDT 07/24/2017 2:45 PM CDT us Notinfile Unknown LAB BLOOD [place] [address] documented in this encounter Visit Diagnoses Not on filedocumented in this encounter Care Teams Patent Chemist Relationship Specialty Start Date End Date Katie Kellogg MD [address] [place] [address] PCP - General 01/22/17 09/26/20 documented as of this encounter
--- OUTSIDE RECORDS SUMMARY | 2024-11-14 19:18 | XMS_ITS | Encounter Summary ---
Author Organization [facility] Healthcare Address [address] [place] [address] Care Team Providers Care Vehicle Maintenance Technician Name Role Phone Katie Kellogg MD Primary Care Provider Encounter Details Date Type Department Care Team (Latest Contact Info) Description 08/09/2017 2:45 PM CDT - 08/09/2017 11:59 PM CDT Hospital Encounter [facility]IM [phone] Zoya Leiva MD [address] [place] [address] Discharge Disposition: Discharge to home or self care Social History Tobacco Use Types Packs/Day Years Used Date Smoking Tobacco: Never Assessed Comments Unknown Sex and Gender Information Value Date Recorded Sex Assigned at Not on file 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
--- OUTSIDE RECORDS SUMMARY | 2024-11-14 19:18 | XMS_ITS | Encounter Summary ---
Author Organization [facility] Healthcare Address [address] [place] [address] Care Team Providers Care Juice Weigher Name Role Phone Katie Kellogg MD Primary Care Provider Encounter Details Date Type Department Care Team (Late st Contact Info) Description 02/19/2018 3:17 PM CDT - 02/19/2018 11:59 PM CDT Hospital Encounter [facility] [phone] Mary Huffman MD [address] [place] [address] Discharge Disposition: Discharge to home or self care Social History Tobacco Use Types Packs/Day Years Used Date Smoking Tobacco: Never Assessed Comments Unknown Sex and Gender Information Value Date Recorded Sex Assigned at Not on file 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
--- OUTSIDE RECORDS SUMMARY | 2024-11-14 19:18 | XMS_ITS | Encounter Summary ---
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
--- OUTSIDE RECORDS SUMMARY | 2024-11-14 19:18 | XMS_ITS | Referral Summary ---
Author Organization [facility] Address [address] [place] [address] Care Team Providers Care Last Model Department Supervisor Name Role Phone Katie Kellogg MD Unavailable [phone] Neda Carranza NP Primary Care Provider Kyra Prieto NP Unavailable [phone] Encounters Date Type Department Care Team Description 10/04/2024 6:12 PM PAROLE OFFICER - 10/04/2024 11:59 PM PAROLE OFFICER Hospital Encounter [address] [address] Pharyngitis, unspecified etiology; Neck muscle strain, initial encounter Discharge Disposition: Discharge to home or self care 10/04/2024 4:45 PM PAROLE OFFICER Office Visit [facility] at [address] [address] Madie Tapia NP Pharyngitis, unspecified etiology (Primary Dx); Neck muscle strain, initial encounter from Last 3 Months Allergies Active Allergy Reactions Criticality Noted Date Comments Clindamycin Hives Reaction: HIVES, Sulfa (Sulfonamide Antibiotics) Hives Medium 04/11 Hives Vancomycin Fever Medium 06/30/2024 Medications FLUoxetine (PROzac) 10 mg tablet/capsule Take 1 tablet/capsule (10 mg total) by mouth daily for 10 days, THEN 2 tablet/capsule (20 mg total) daily. 90 capsule 1 06/30/20 Active clotrimazole-be tamethasone (LOTRISONE) cream Apply by topical route for 5 days. Active albuterol HFA (PROVENTIL HFA,VENTOLIN HFA,PROAIR HFA) 90 mcg/actuation inhaler INHALE 2 PUFFS BY MOUTH EVERY 4 TO 6 HOURS NEEDED FOR SHORTNESS OF BREATH OR WHEEZING Active NuvaRing 0.12-0.015 mg/24 hr vaginal ring Insert 1 vaginal ring every month by vaginal route as directed for 30 days, for regulate periods. 09/29/20 24 Active methylphenidate ER (CONCERTA) 18 mg CR tablet Take 2 tablets (36 mg total) by mouth daily Active traMADoL (ULTRAM) 50 mg tablet Active triamcinolone (KENALOG) 0.1 % ointment 09/29/20 24 Active methylPREDNISol one (MEDROL DOSEPACK) 4 mg DosepackIndicat ions:Pharyngiti s, unspecified etiology,Neck muscle strain, initial encounter Take 6 tabs on day 1, reduce dose by 1 daily until prescription is complete. 1 packet 10/04/20 24 Active hydrOXYzine (ATARAX) 10 mg tablet Take 1 tablet (10 mg total) by mouth every 8 (eight) hours as needed for anxiety 60 tablet 1 11/09/20 24 Active FLUoxetine (PROzac) 20 mg capsule Take 1 capsule (20 mg total) by mouth daily 30 capsule 11/09/20 24 025 Active hydrOXYzine (ATARAX) 10 mg tablet Take 1 tablet (10 mg total) by mouth every 8 (eight) hours as needed for anxiety 60 tablet 1 06/30/20 24 024 Discontin ued(Reord er) citalopram (CeleXA) 20 mg tablet Take 1 tablet (20 mg total) by mouth daily 024 Discontin ued(Alter hector therapy) Active Problems Problem Noted Date Diagnosed Date Severe episode of recurrent major depressive disorder, without psychotic features 06/30/2024 Assessment & Plan (06/30/2024 4:32 PM CDT): Not at goal and worsening. PHQ 21 in office, has passive SI thoughts but not active plan or intent. Has had been on multiple SSRI's but no improvement. She had testing performed and it showed the SSRI class was not overly beneficial. However, it showed that Fluoxetine would be a good choice. Provider in the past would not put pt on it because she was pre-teen. Patient and her mother interested in trying Prozac. Will trial Prozac, education provided. Will also trial Hydroxyzine prn. Also encourage counseling and Psychiatry referral placed. ASCUS with positive high risk HPV cervical 01/24 Overview (06/30/2024): March Repeat again in January 2024, if still showing ASCUS then send to obgyn for a colposcopy. Pelvic pain 07/07/2021 Superficial thrombophlebitis of left upper extre mity 11/19/2018 Blood in stool 05/29/2018 Generalized abdominal pain 05/29/2018 Chronic diarrhea 05/28/2018 Anxiety 10/01/2017 Assessment & Plan (06/30/2024 4:31 PM CDT): Not at goal and worsening. PHQ 21 in office, has passive SI thoughts but not active plan or intent. Has had been on multiple SSRI's but no improvement. She had testing performed and it showed the SSRI class was not overly beneficial. However, it showed that Fluoxetine would be a good choice. Provider in the past would not put pt on it because she was pre-teen. Patient and her mother interested in trying Prozac. Will trial Prozac, education provided. Will also trial Hydroxyzine prn. Also encourage counseling and Psychiatry referral placed Presence of intrauterine contraceptive device Encounter for contraceptive management 7 Chronic daily headache 02/25/2017 Overview (06/30/2024): Last Assessment & Plan: Prior migraines have [...] or other neurological concerns. Headache 06/01/2014 Overview (06/30/2024): Last Assessment & Plan: Headache had migrainous [...] preventative medication. Distal radius fracture, right 04/20/2014 Intermittent alternating exotropia 12/09/2012 Asperger's disorder 12/27/2010 Periumbilical abdominal pain 09/08/2010 Immunizations Name Administration Dates Next Due Influenza, Unspecified 11/11/2023(Deferr ed: Patient Refused),11/11/2022(Deferred: Patient Refused) Social History Tobacco Use Types Packs/Day Years Used Date Smoking Tobacco: Never PHQ-2 Answer Date Recorded PHQ-2 Total Score (If total score is 3 or more points, staff should administer the PHQ-9) 6 06/30/2024 Comments No Sex and Gender Information Value Date Recorded Sex Assigned at Not on file Legal Sex Female 12:45 AM PAROLE OFFICER Gender Identity Not on file Sexual Orientation Not on file Last Filed Vital Signs Vital Sign Reading Time Taken Comments Blood Pressure 116/78 10/04/2024 4:47 PM PAROLE OFFICER Pulse 70 10/04/2024 4:47 PM PAROLE OFFICER Temperature 36.8 ??C (98.3 ??F) 10/04/2024 4:47 PM CS T Respiratory Rate 20 10/04/2024 4:47 PM PAROLE OFFICER Oxygen Saturation 98% 10/04/2024 4:47 PM PAROLE OFFICER Inhaled Oxygen Concentration - - Weight 72.6 kg (160 lb) 10/04/2024 4:47 PM PAROLE OFFICER Height 160 cm (5' 3 ) 10/04/2024 4:47 PM PAROLE OFFICER Body Mass Index 28.34 10/04/2024 4:47 PM PAROLE OFFICER Plan of Treatment Not on file Procedures Procedure Name Priority Date/Time Associated Diagnosis Comments THROAT CULTURE Routine 10/04/2024 10:01 PM PAROLE OFFICER Pharyngitis, unspecified etiology Neck muscle strain, initial encounter POCT RAPID STREP Routine 10/04/2024 5:14 PM PAROLE OFFICER Pharyngitis, unspecified etiology HM PAP SMEAR Routine 10/08/2023 9:30 AM PAROLE OFFICER N. GONORRHOEAE/C. TRACHOMATIS AMPLIFICATION TEST STAT 04/23/2019 5:16 PM CDT from Last 3 Months or Most Recently Relevant to Health Maintenance Results * Throat culture Throat (10/04/2024 10:01 PM PAROLE OFFICER) Report Final Report: No growth of pathogens. Comment:Testing performed by : [facility], [address] [place]., [address] Throat 10/04/2024 10:0 1 PM PAROLE OFFICER 10/05/2024 12:57 AM PAROLE OFFICER Narrative DERIAN Ugarte 10/06/2024 5:47 PM PAROLE OFFICER Testing performed by [facility] ([phone]). us Madie Tapia NP LAB MICROBIOLOGY - GENERAL ORD ERABLES Final Result [facility]ER[facility] PAGE [address] Department [place] [address] * POCT rapid strep A (10/04/2024 5:14 PM PAROLE OFFICER) Rapid Strep A, POC Negative Negative Swab 10/04/2024 5:14 PM PAROLE OFFICER Madie Tapia NP POINT OF CARE TEST ORDERABLES Final Result * HM PAP SMEAR (10/08/2023 9:30 AM PAROLE OFFICER) Historical Provider HEALTH MAINTENANCE Final Result * N. gonorrhoeae/C. trachomatis amplification test Urine (04/23/2019 5:16 PM CDT) Report Final Report: Negative for: ??Chlamydia trachomatis rRNA Negative for: ??Neisseria gonorrhoeae rRNA [facility] Comment:Testing performed by : [facility], [address] [place]., [address] Urine 04/23/2019 5:16 PM CDT 04/23/2019 7:20 PM CDT Narrative [facility] - 04/24/2019 1:26 PM CDT Testing performed by the Gen-Probe [employer] APTIMA Combo 2 Assay. This nucleic acid amplification test (NAAT) detects ribosomal RNA (rRNA) from Chlamydia trachomatis and Neisseria gonorrhoeae using target capture,and Charge Loader-Mediated Amplification (TMA). This test is approved by the [employer] Food and Drug Administration for endocervical, vaginal, and male urethral swab specimens, in addition to male and female urine specimens. The performance characteristics for these specimen types have been verified by the [facility].The performance characteristics of this assay for pharyngeal and rectal specimens collected from cervical swab collection devices have been validated and verified by the [facility]. Verification studies support a lack of cross reactivity with other Neisseria species considered normal oropharyngeal bacterial kaushik. Rectal swab specimens containing excess stool may be inhibitory and result in false negatives for Chlamydia trachomatis or Neisseria gonorrhoeae. The performance characteristics of this test have not been evaluated in women or individuals less than 16 years of age. us Jennifer Ospina NP LAB MICROBIOLOGY - GENERAL ORDERABLES Final Result [facility] Department [place] [address] from Last 3 Months or Most Recently Relevant to Health Maintenance Insurance [facility] Advance Directives For more information, please contact: [phone] Documents on File Type Date Recorded Patient Bdc Manager Expl anation ADVANCE DIRECTIVE 04/23/2019 4:57 PM Care Teams Last Model Department Supervisor Relationship Specialty Start Date End Date Neda Carranza NP [address] [facility] [address] [place] [address] PCP - General Family Medicine 06/30/24 Katie Kellogg MD [address] [place] [address] 09/27/20 Kyra Prieto NP [address] [place] [address] Nurse Practitioner Obstetrics and Gynecology 06/30/24
--- OUTSIDE RECORDS SUMMARY | 2024-11-14 19:18 | XMS_ITS | Encounter Summary ---
Author Organization [facility] Healthcare Address [address] [place] [address] Care Team Providers Care Director Imaging Name Role Phone Katie Kellogg MD Primary Care Provider [phone] Reason for Visit * Reason Comments Rash Encounter Details Date Type Department Care Team (Late st Contact Info) Description 04/23/2019 3:39 PM CDT - 04/23/2019 6:42 PM CDT Emergency [facility] [place] [address] Tonya Becerril MD 1 [facility] [address] [place] [address] Irritant contact dermatitis, unspecified trigger (Primary Dx) Discharge Disposition: Discharge to home or self care Social History Tobacco Use Types Packs/Day Years Used Date Smoking Tobacco: Never Comments No Sex and Gender Information Value Date Recorded Sex Assigned at Not on file 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 Gender Identity Not on file Sexual Orientation Not on file documented as of this encounter Last Filed Vital Signs Vital Sign Reading Time Taken Comments Blood Pressure 121/62 04/23/2019 6:38 PM CDT Pulse 75 04/23/2019 6:38 PM CDT Temperature 36.9 ??C (98.4 ??F) 04/23/2019 6:38 PM CD T Respiratory Rate 18 04/23/2019 6:38 PM CDT Oxygen Saturation - - Inhaled Oxygen Concentration - - Weight 76.7 kg (169 lb 1.5 oz) 04/23/2019 3:34 P M CDT Height - - Body Mass Index - - documented in this encounter Discharge Diagnoses Diagnosis Irritant contact dermatitis - IRRITANT CONTACT DERMATITIS, UNSPECIFIED CAUSE Anxiety disorder - ANXIETY DISORDER, UNSPECIFIED Anxiety state, unspecified Autistic disorder - AUTISTIC DISORDER Autistic disorder, current or active state Other chronic pain - OTHER CHRONIC PAIN Major depressive disorder, single episode - MAJOR DEPRESSIVE DISORDER, SINGLE EPISODE, UNSPECIFIED Major depressive disorder, single episode, unspecified Allergy status to sulfonamides - ALLERGY STATUS TO SULFONAMIDES STATUS Allergy status to other antibiotic agents status - ALLERGY STATUS TO OTHER ANTIBIOTIC AGENTS STATUS documented in this encounter Discharge Instructions * Discharge Instructions* Jennifer Ospina NP - 04/23/2019 6:35 PM CDT Take prednisone tablets tapering as directed. Finish augmentin as directed. Keep rash clean and dry,. May apply calamine or hydrocortisone ointment as directed. Follow up tomorrow with Dr Kellogg for recheck. Wash sheets and clothes in hot water. Always shower after coming in contact with outside plants/jose maria/leaves before going to sleep. May take benadryl for break through itching. Follow up to EDfor high fever or spreading redness or swelling not responsive to current treatment, or any other new concerns. * Attachments The following attachments cannot be sent through Care Everywhere. * Contact Dermatitis (AfterCare(R) Instructions(ER/ED)) (Sudanese) * Poison Viri (AfterCare(R) Instructions(ER/ED)) (Sudanese) * Cellulitis in Children (AfterCare(R) Instructions(ER/ED)) (Sudanese) documented in this encounter Medications at Time of Discharge predniSONE (DELTASONE) 10 mg tabletIndications :contact dermatitis Take 6 tablets (60 mg) by mouth daily for 4 days, THEN 4 tablets (40 mg) daily for 4 days, THEN 2 tablets (20 mg) daily for 4 days, THEN 1 tablet (10 mg) daily for 4 days. 52 tablet 04/23/2019 05/09/2019 amoxicillin-clavu lanate (AUGMENTIN) 875-125 mg per tablet TK 1 T PO BID FOR 10 DAYS 0 04/22/2019 06/30/2024 documented as of this encounter Ordered Prescriptions Prescription Sig Dispense Quantity Refills Last Filled Start Date End Date predniSONE (DELTASONE) 10 mg tabletIndications: contact dermatitis Take 6 tablets (60 mg) by mouth daily for 4 days, THEN 4 tablets (40 mg) daily for 4 days, THEN 2 tablets (20 mg) daily for 4 days, THEN 1 tablet (10 mg) daily for 4 days. 52 tablet 04/23/2019 9 documented in this encounter Discharge Disposition Disposition Code Departure Means Destination Discharge to home or self care documented in this encounter ED Notes * Jennifer Ospina, REFINING EQUIPMENT OPERATOR - 04/23/2019 6:42 PM CDT HPI Chief Complaint Patient presents with ??? Rash Pt started c/o itchy rash in her sleep early Saturday morning woke up Saturday with red bumps on backof both thighs that got more red and swollen throughout the day so went to OSH Saturday night. Was given dose of Epi, one dose oral steroids and Rx for hydrocortisone ointment, for allergic reaction. Yesterday rash started developing blisters and increased surrounding redness warmth and pain. Went to PCP, given IM ceftriaxone and started on oral augmentin. This morning mom called PCP stating rash was 'even worse' and pt was feeling 'flu like' and had low grade fever(99.5) so PCP sent her here for eval for possible worsening cellulitis vs Trejo Benjamin's syndrome. Pt states rash is 'itchy and painful and stinging' all at the same time. Pt endorses falling into bushes and sitting in some leaves on Saturday. She went to bed without taking a shower. PT has no runny nose cough or fever. Decreased appetite today, no vomiting or diarrhea. IMM: UTD Pt is allergic to Sulfa and clindamycin (both cause hives) No hx of asthma. No hx of boils or abscesses. No recent travel no known tick bites Patient History Patient Active Problem List Diagnosis Date Noted ??? Anxiety 10/01/2017 Past Medical History: Diagnosis Date ??? Anxiety ??? Autism spectrum disorder ??? Chronic pain disorder ??? Depression Past Surgical History: Procedure Laterality Date ??? EYE SURGERY ??? TEAR DUCT SURGERY ??? TONSILLECTOMY Family History Problem Relation Age of Onset ??? Anxiety disorder Mother ??? ADD / ADHD Mother ??? Depression Mother ??? OCD Mother ??? Learning disabilities Mother ??? Autism Cousin Social History Tobacco Use ??? Smoking status: Never Smoker Substance Use Topics ??? Alcohol use: Not on file ??? Drug use: Not on file Social History Social History Narrative ??? Not on file Review of Systems Review of Systems Constitutional: Positive for activity change, appetite change and fever (feels warm to touch). Negative for chills. HENT: Negative for congestion, ear pain, facial swelling, rhinorrhea, sore throat and trouble swallowing. Eyes: Negative for pain, discharge and redness. Respiratory: Negative for cough, shortness of breath and wheezing. Gastrointestinal: Positive for nausea. Negative for abdominal pain, diarrhea and vomiting. Genitourinary: Negative for decreased urine volume and dysuria. Musculoskeletal: Negative for joint swelling, myalgias and neck pain. Skin: Positive for rash. Allergic/Immunologic: Negative for environmental allergies and food allergies. Neurological: Negative for headaches. Hematological: Negative for adenopathy. Physical Exam ED Triage Vitals Temp Pulse Resp BP SpO2 04/23/19 1534 04/23/19 1534 04/23/19 1534 04/23/19 1534 -- 36.2 ??C (97.2 ??F) 96 16 122/74 Temp src Heart Rate Source Patient Position BP Location FiO2 (%) 04/23/19 1534 -- 04/23/19 1838 -- -- Temporal Lying Physical Exam Constitutional: She is oriented to person, place, and time. She appears well- developed and well-nourished. No distress. HENT: Head: Normocephalic. Right Ear: External ear normal. Left Ear: External ear normal. TM's WNL Eyes: Pupils are equal, round, and reactive to light. Conjunctivae and EOM are normal. Right eye exhibits no discharge. Left eye exhibits no discharge. Neck: Normal range of motion. Neck supple. Cardiovascular: Normal rate and regular rhythm. No murmur heard. Pulmonary/Chest: Effort normal and breath sounds normal. No respiratory distress. She has no wheezes. Abdominal: Soft. There is no tenderness. Musculoskeletal: Normal range of motion. Lymphadenopathy: She has no cervical adenopathy. Neurological: She is alert and oriented to person, place, and time. She exhibits normal muscle tone. Skin: Skin is warm and dry. Capillary refill takes less than 2 seconds. Rash noted. cluster of three 1-2cm bullous lesions on upper inner Rt thigh with ~6x8cm area of surrounding erythema. Erythema does not cross border marked yesterday. One 1x2cm bullous lesion on Lt upper inner thigh with ~9-11cm of surrounding erythema and tenderness, erythema very slightly crosses the ink border placed yesterday. Pt also has 3 more smaller .5cm bullous lesions on back of Lt thigh that has much less erythema from ink border placed yesterday and one 3mm papular lesion on lt lower leg that has improved from yesterday. NO conjunctivitis or mucous membrane lesions or desquamation. Psychiatric: She has a normal mood and affect. Her behavior is normal. Judgment and thought contentnormal. Nursing note and vitals reviewed. MDM MDM Number of Diagnoses or Management Options Irritant contact dermatitis, unspecified trigger: Diagnosis management comments: 18 y/o with history suggestive of contact dermatitis with possible early cellullitis. No concern for Ghassan's Benjamin's Plan: discussed pt with Dr Becerril who examined pt. Agrees with plan for treatment of contact dermatis with tapering oral steroids, finishing course of Augmentin. Will Contact PCP to discuss plan. Dose of benadryl given for comfort while waiting to hear back from PCP. 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 No concern for Ghassan's Benjamin's. Agree with plan for tapering prednisone and finishing augmentin. Will f/u tomorrow in the office. Mom updated and in agreement with plan, will f/u tomorrow with Dr Kellogg. May use benadryl for breakthrough itching, hydrocortisone or calamine lotion to lesions, discussed usual course for contact dermatitis and preventive measures for the future. By: Jennifer Ospina NP Irritant contact dermatitis, unspecified trigger Jennifer Ospina NP 04/23/191926 Cosigned by Tonya Becerril MD at 04/23/2019 10:09 PM CDT Associated attestation - Tonya Becerril MD - 04/23/2019 10:09 PM CDT I have seen and examined the patient on 04/23/2019 in conjunction with Jennifer Ospina My findingsand recommendations are as follows. 18 yo female who presents with worsening rash for 4 days. Fell into some brush the night before the rash started. Woke up in the health information technologist with itching to her bilateral thighs. She then started developed red bumps. [place] so it thought these might be mosquito bites. She is allergic to mosquito bites that can have extremereaction to them. At that time they went to a local emergency department. She was given steroids and a prescription for hydrocortisone as well as Benadryl. The rash started to worsen and she was seenby her PMD yesterday. The rash started to develop in to blisters which started small and a worsening. The PMD was concern for superinfection of a contact dermatitis and prescribed her Augmentin. She also give a dose of ceftriaxone IM in the office. She has had 1 dose of Augmentin (patient allergic to sulfa and clindamycin which cause hives). She states she has been taking the Benadryl but that today the area around her left thigh had increasing pain and was itching so came to the emergency department. No fevers. Exam notable for multiple areas on her thighs of erythema with of central boulea better warm, tender, but without underlying induration, they do not cross joints, there is an outline around them which the redness is approximately half a cm beyond in the area of the left thigh. Was mucous membranes are without erythema. No erythema or conjunctiva. Assessment and plan: Patient is well-appearing and is well hydrated by history and exam. Differential: This is most likely a bed contact dermatitis from something such as poison viri, it is possible that has a superinfection, unlikely Ghassan Benjamin syndrome. REFINING EQUIPMENT OPERATOR spoke with PMD and we will place her on steroids and complete the course of Augmentin. PMD will follow her up closely. Return to care with any concerns. * Margie Prado RN - 04/23/2019 3:33 PM CDT Pt with multiple bullous areas of rash to bilateral legs since Saturday documented in this encounter Miscellaneous Notes * ED Pre-Arrival Note - Maria Luisa Ace, CHASIDY - 04/23/2019 1:39 PM CDT Pre-Arrival Note 18 y/o f c/c rash, seen at PMD yesterday, afebrile, allergic to sulfa and clinda, culture sent, augmentin prescribed, now spreading, working diagnosis staph vs. Ghassan Benjamin, listless, need IV antibiotics?, contact PMD after evaluation [phone] back office Maria Luisa Ace, CHASIDY documented in this encounter Plan of Treatment Not on file documented as of this encounter Procedures Procedure Name Priority Date/Time Associated Diagnosis Comments POCT RAPID HIV STAT 04/23/2019 5:53 PM CDT N. GONORRHOEAE/C. TRACHOMATIS AMPLIFICATION TEST STAT 04/23/2019 5:16 PM CDT documented in this encounter Results * POCT rapid HIV (04/23/2019 5:53 PM CDT) [facility] Rapid HIV, POC Negative Negative Lot Number [id number] QC Control Line Acceptable Blood specimen (specimen) 04/23/2019 5:53 PM CDT Jennifer Ospina NP POINT OF CARE TEST ORDERABL ES Final Result * N. gonorrhoeae/C. trachomatis amplification test Urine (04/23/2019 5:16 PM CDT) Report Final Report: Negative for: ??Chlamydia trachomatis rRNA Negative for: ??Neisseria gonorrhoeae rRNA [facility] Comment:Testing performed by : [facility], [address] [place]., [address] Urine 04/23/2019 5:16 PM CDT 04/23/2019 7:20 PM CDT Narrative [facility] - 04/24/2019 1:26 PM CDT Testing performed by the Gen-Probe [employer] APTIMA Combo 2 Assay. This nucleic acid amplification test (NAAT) detects ribosomal RNA (rRNA) from Chlamydia trachomatis and Neisseria gonorrhoeae using target capture,and Assembler Wire Mesh Gate-Mediated Amplification (TMA). This test is approved by the [facility] Food and Drug Administration for endocervical, vaginal, and male urethral swab specimens, in addition to male and female urine specimens. The performance characteristics for these specimen types have been verified by the [facility].The performance characteristics of this assay for pharyngeal and rectal specimens collected from cervical swab collection devices have been validated and verified by the [facility]. Verification studies support a lack of cross reactivity with other Neisseria species considered normal oropharyngeal bacterial kaushik. Rectal swab specimens containing excess stool may be inhibitory and result in false negatives for Chlamydia trachomatis or Neisseria gonorrhoeae. The performance characteristics of this test have not been evaluated in women or individuals less than 16 years of age. Jennifer Ospina NP LAB MICROBIOLOGY - GENERAL ORDERABLES Final Result [facility] [place] [address] documented in this encounter Visit Diagnoses Diagnosis Irritant contact dermatitis, unspecified trigger- Primary documented in this encounter Administered Medications Inactive Administered Medications - up to 3 most recent administrations Medication Order MAR Action Action Date Dose Rate Site diphenhydrAMINE (BENADRYL) capsule 50 mg 50 mg, oral, Once, On Svitlana 04/23/19 at 1639, For 1 dose Given 04/23/2019 4:46 PM CDT 50 mg predniSONE (DELTASONE) tablet 60 mg 60 mg, oral, Once, On Svitlana 04/23/19 at 1821, For 1 dose Given 04/23/2019 6:30 PM CDT 60 mg documented in this encounter Historical Medications * This list may reflect changes made after this encounter. amoxicillin-clavu lanate (AUGMENTIN) 875-125 mg per tablet TK 1 T PO BID FOR 10 DAYS 0 04/22/2019 06/30/2024 added in this encounter Active and Recently Administered Medications Times are shown in CDT. Scheduled Medication Order 04/21/2019 04/22/2019 04/23/2019 diphenhydrAMINE (BENADRYL) capsule 50 mg (COMPLETED) 50 mg, oral, Once, On Svitlana 04/23/19 at 1639, For 1 dose 1646 (Given - Provid er: Elvie Gonzalez, LANDON) predniSONE (DELTASONE) tablet 60 mg (COMPLETED) 60 mg, oral, Once, On Svitlana 04/23/19 at 1821, For 1 dose 1830 (Given - Provid er: Opal Cruz, LANDON) documented in this encounter Orders Nursing Count Last Ordered Date First Orde red Date NURSING COMMUNICATION 1 04/23/2019 documented in this encounter Care Teams Director Imaging Relationship Specialty Start Date End Date Katie Kellogg MD [address] [place] [address] PCP - General 01/22/17 09/26/20 documented as of this encounter
--- OUTSIDE RECORDS SUMMARY | 2024-11-14 19:18 | XMS_ITS | Encounter Summary ---
Author Organization [facility] Facility Care Team Providers Care Needle Loom Weaver Name Role Phone Unavailable Primary Care Provider Unavailabl e Encounter Details Date Type Department Care Team (Late st Contact Info) Description 09/21/2016 10:33 AM SENSITIZER - 09/21/2016 11:59 PM SENSITIZER Hospital Encounter [facility] Katie Toribio MD [address] [place], [place] [id number] Dysuria Social History Tobacco Use Types Packs/Day Years Used Date Smoking Tobacco: Never Assessed Comments Unknown Sex and Gender Information Value Date Recorded Sex Assigned at Not on file Legal Sex 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 Gender Identity Not on file Sexual Orientation Not on file documented as of this encounter Plan of Treatment Not on file documented as of this encounter Procedures Procedure Name Priority Date/Time Associated Diagnosis Comments ABDOMINAL RADIOGRAPHY, FRONTAL (AP) Routine 09/21/2016 11:23 AM SENSITIZER RENAL SONOGRAPHY Routine 09/21/2016 10:5 8 AM SENSITIZER documented in this encounter Results * ABDOMINAL RADIOGRAPHY, FRONTAL (AP) (09/21/2016 11:23 AM SENSITIZER) Anatomical Region Laterality Modality N/A Radiographic Ann Marie ging 09/21/2016 11:2 3 AM SENSITIZER Narrative 09/21/2016 12:27 PM SENSITIZER DAVID DUFFY M.D. PRISCILA AVENDANO M.D. FINAL REPORT The radiology attending physician has personally reviewed this study, and has reviewed and/or edited this written report and agrees with it. ACC# ??Date Time ??Exam [id number] Sep 21, 2016 11:23:00 [id number] ABDOMEN SINGLE VIEW AP ACC# ??Date Time ??Exam [id number] Sep 21, 2016 11:23:00 [id number] ABDOMEN SINGLE VIEW AP EXAMINATION: ?Abdomen single view AP HISTORY: ??Dysuria. Evaluate for stones. FINDINGS: ?? Single AP view of the abdomen is obtained under 2 exposures. Correlation is made with the renal sonogram performed the same date. The bowel gas pattern is normal. No dilated loops of small or large bowel. There are no suspicious calcifications overlying the kidneys, along the expected course of the ureters or urinary bladder. Visualized portions of the lung bases are clear. ?? IMPRESSION: Normal abdominal radiograph. No suspicious calcifications. ?? Requested By: Dictated By: ?? PRISCILA AVENDANO M.D. ??on Sep 21 2016 11:41A This document has been electronically signed by: DAVID DUFFY M.D. on Sep 21 2016 12:27P Procedure Note Provider, MD Serafin - 03/18/2017 DAVID DUFFY M.D. PRISCILA AVENDANO M.D. FINAL REPORT The radiology attending physician has personally reviewed this study, and has reviewed and/or edited this written report and agrees with it. ACC# Date Time Exam [id number] Sep 21, 2016 11:23:00 [id number] ABDOMEN SINGLE VIEW AP ACC# Date Time Exam [id number] Sep 21, 2016 11:23:00 [id number] ABDOMEN SINGLE VIEW AP EXAMINATION: Abdomen single view AP HISTORY: Dysuria. Evaluate for stones. FINDINGS: Single AP view of the abdomen is obtained under 2 exposures. Correlation is made with the renal sonogram performed the same date. The bowel gas pattern is normal. No dilated loops of small or large bowel. There are no suspicious calcifications overlying the kidneys, along the expected course of the ureters or urinary bladder. Visualized portions of the lung bases are clear. IMPRESSION: Normal abdominal radiograph. No suspicious calcifications. Requested By: Dictated By: PRISCILA AVENDANO M.D. on Sep 21 2016 11:41A This document has been electronically signed by: DAVID DUFFY M.D. on Sep 21 2016 12:27P us Historical Provider IMG XR PROCEDURES Final R esult * RENAL SONOGRAPHY (09/21/2016 10:58 AM SENSITIZER) Anatomical Region Laterality Modality N/A Ultrasound 09/21/2016 10:5 8 AM SENSITIZER Narrative 09/21/2016 11:19 AM SENSITIZER ALFREDO PAINTING M.D. FINAL REPORT The radiology attending physician has personally reviewed this study, and has reviewed and/or edited this written report and agrees with it. ACC# ??Date Time ??Exam [id number] Sep 21, 2016 10:58:00 RENAL/URINARY SYS COMPL [id number] ACC# ??Date Time ??Exam [id number] Sep 21, 2016 10:58:00 RENAL/URINARY SYS COMPL [id number] EXAMINATION: ?Renal Sonogram COMPARISON: Abdominal sonogram complete from 12/08/2013. HISTORY: ??Dysuria. FINDINGS: The right kidney measures 9.6 cm. This is within normal limits for the patient's age. There is no hydronephrosis. ??The renal architecture is normal. The left kidney measures 10.5 cm. This is within normal limits for the patient's age. There is no hydronephrosis. ??The renal architecture is normal. The urinary bladder is unremarkable. ?? IMPRESSION: ? Normal renal sonogram. ?? Requested By: Dictated By: ?? ALFREDO BRIONES M.D. ??on Sep 21 2016 11:08A This document has been electronically signed by: HENNA ARCHER, ??on Sep 21 2016 11:19A Procedure Note Provider, MD Serafin - 03/18/2017 ALFREDO PAINTING M.D. FINAL REPORT The radiology attending physician has personally reviewed this study, and has reviewed and/or edited this written report and agrees with it. ACC# Date Time Exam [id number] Sep 21, 2016 10:58:00 RENAL/URINARY SYS COMPL [id number] ACC# Date Time Exam [id number] Sep 21, 2016 10:58:00 RENAL/URINARY SYS COMPL [id number] EXAMINATION: Renal Sonogram COMPARISON: Abdominal sonogram complete from 12/08/2013. HISTORY: Dysuria. FINDINGS: The right kidney measures 9.6 cm. This is within normal limits for the patient's age. There is no hydronephrosis. The renal architecture is normal. The left kidney measures 10.5 cm. This is within normal limits for the patient's age. There is no hydronephrosis. The renal architecture is normal. The urinary bladder is unremarkable. IMPRESSION: Normal renal sonogram. Requested By: Dictated By: ALFREDO BRIONES M.D. on Sep 21 2016 11:08A This document has been electronically signed by: HENNA ARCHER on Sep 21 2016 11:19A us Historical Provider MD PARKER US PROCEDURES Final R esult documented in this encounter Visit Diagnoses Diagnosis Dysuria documented in this encounter
--- OUTSIDE RECORDS SUMMARY | 2024-11-14 19:18 | XMS_ITS | Encounter Summary ---
Author Organization [facility] Healthcare Address [address] [place] [address] Care Team Providers Care Tractor Sweeper Driver Name Role Phone Katie Kellogg MD Unavailable [phone] Neda Carranza NP Primary Care Provider [phone] Kyra Prieto NP Unavailable [phone] Reason for Visit * Reason Comments Sore Throat Started today. Not s ore throat more like a pulled muscle in neck and is causing pain to jaw. Has not been taking anything but has been sleeping all day. Headache Encounter Details Date Type Department Care Team (Late st Contact Info) Description 10/04/2024 4:45 PM FEEDER CATCHER Office Visit [facility] at [address] [phone] Madie Tapia NP [address] [place] [address] [address] [place] [address] Pharyngitis, unspecified etiology (Primary Dx); Neck muscle strain, initial encounter Social History Tobacco Use Types Packs/Day Years Used Date Smoking Tobacco: Never PHQ-2 Answer Date Recorded PHQ-2 Total Score (If total score is 3 or more points, staff should administer the PHQ-9) 6 06/30/2024 Comments No Sex and Gender Information Value Date Recorded Sex Assigned at Not on file Legal Sex Female 12:45 AM FEEDER CATCHER Gender Identity Not on file Sexual Orientation Not on file documented as of this encounter Last Filed Vital Signs Vital Sign Reading Time Taken Comments Blood Pressure 116/78 10/04/2024 4:47 PM FEEDER CATCHER Pulse 70 10/04/2024 4:47 PM FEEDER CATCHER Temperature 36.8 ??C (98.3 ??F) 10/04/2024 4:47 PM CS T Respiratory Rate 20 10/04/2024 4:47 PM FEEDER CATCHER Oxygen Saturation 98% 10/04/2024 4:47 PM FEEDER CATCHER Inhaled Oxygen Concentration - - Weight 72.6 kg (160 lb) 10/04/2024 4:47 PM FEEDER CATCHER Height 160 cm (5' 3 ) 10/04/2024 4:47 PM FEEDER CATCHER Body Mass Index 28.34 10/04/2024 4:47 PM FEEDER CATCHER documented in this encounter Patient Instructions * Patient Instructions* Madie Tapia NP - 10/04/2024 4:45 PM FEEDER CATCHER The rapid strep test performed at the [facility] today was NEGATIVE. Throat culture sent Take Tylenol (acetaminophen) or Advil/Motin (ibuprofen) as needed per package directions for fevers/pain. Gargle with warm salt water (1tsp salt/1 cup water) or warm tea with honey and lemon to soothe pain Frequent warm or cool liquids can be soothing, like ice chips, popsicles, chicken broth, and tea. If you still are not having relief with the above, you can try a Magic Mouthwash -Equal parts liquid antacid (e.g.Maalox) and children's Benadryl with a couple drops of Anbesol gargle and spit every 3-4 hours as needed. If you are not improving or worsening in the next 3-5 days you must RETURN to the clinic, go to your PCP, or Urgent Care/ER to be SEEN and reevaluated. # muscle strain of Neck --start steroid pack as directed --use of Tylenol and ibuprofen for pain --Discussed applying heat for pain relief, such as using a heating pad. Be careful not to burn yourself --encouraged stretching, Rest and ice --Discusses Salonpas pain patches --f/u with PCP or in ER if symptoms worsen or persist. ER CATCHER * Attachments The following attachments cannot be sent through Care Everywhere. * Pharyngitis (Sourcing Intern) (Macedonian) * Cervical Strain (Sourcing Intern) (Macedonian) documented in this encounter Ordered Prescriptions Prescription Sig Dispense Quantity Refills Last Filled Start Date End Date methylPREDNISolon e (MEDROL DOSEPACK) 4 mg DosepackIndicatio ns:Pharyngitis, unspecified etiology,Neck muscle strain, initial encounter Take 6 tabs on day 1, reduce dose by 1 daily until prescription is complete. 1 packet 10/04/2024 documented in this encounter Progress Notes * Madie Tapia NP - 10/04/2024 4:45 PM CST Images from the original note were not included. Patient ID: Angela Peterson is a 23 y.o. female followed by Neda Carranza NP Chief Complaint Patient presents with Sore Throat Started today. Not sore throat more like a pulled muscle in neck and is causing pain to jaw. Has not been taking anything but has been sleeping all day. Headache Patient presents to the clinic with reports of headache and sore throat/neck that started today. Denies fevers, chest pain, rash, vomiting, and difficulty breathing. She has taken no OTC medications for her symptoms. Review of Systems Constitutional: Negative for chills, fatigue and fever. HENT: Positive for sore throat. Negative for congestion, ear pain, postnasal drip, rhinorrhea and sinus pressure. Respiratory: Negative for cough, shortness of breath and wheezing. Cardiovascular: Negative for chest pain. Gastrointestinal: Negative for nausea. Musculoskeletal: Negative for myalgias. Neurological: Positive for headaches. Vitals: 10/04/24 1647 BP: 116/78 BP Location: Right arm Patient Position: Sitting Pulse: 70 Resp: 20 Temp: 36.8 ??C (98.3 ??F) TempSrc: Oral SpO2: 98% Weight: 72.6 kg (160 lb) Height: 160 cm (5' 3 ) Recent Results (from the past 24 hours) POCT rapid strep A Collection Time: 10/04/24 5:14 PM Result Value Ref Range Rapid Strep A, POC Negative Negative Physical Exam Vitals reviewed. Constitutional: General: She is not in acute distress. Appearance: Normal appearance. She is not ill-appearing. HENT: Head: Normocephalic. Right Ear: Tympanic membrane, ear canal and external ear normal. No middle ear effusion. Tympanic membrane is not erythematous or bulging. Left Ear: Tympanic membrane, ear canal and external ear normal. No middle ear effusion. Tympanic membrane is not erythematous or bulging. Nose: No congestion or rhinorrhea. Mouth/Throat: Lips: [place]. Mouth: Mucous membranes are moist. Pharynx: Uvula midline. Posterior oropharyngeal erythema present. No pharyngeal swelling or oropharyngeal exudate. Cardiovascular: Rate and Rhythm: Normal rate and regular rhythm. Pulmonary: Effort: Pulmonary effort is normal. No respiratory distress. Breath sounds: Normal breath sounds. No decreased breath sounds or wheezing. Musculoskeletal: Cervical back: No edema, erythema or signs of trauma. Muscular tenderness (right side) present. No pain with movement. Lymphadenopathy: Cervical: Cervical adenopathy present. Right cervical: Superficial cervical adenopathy present. Left cervical: No superficial cervical adenopathy. Skin: General: Skin is warm. Neurological: Mental Status: She is oriented to person, place, and time. Psychiatric: Behavior: Behavior is cooperative. Diagnoses and all orders for this visit: Pharyngitis, unspecified etiology (Primary) - POCT rapid strep A - methylPREDNISolone (MEDROL DOSEPACK) 4 mg Dosepack; Take 6 tabs on day 1, reduce dose by 1 daily until prescription is complete. Neck muscle strain, initial encounter - methylPREDNISolone (MEDROL DOSEPACK) 4 mg Dosepack; Take 6 tabs on day 1, reduce dose by 1 daily until prescription is complete. Orders Placed This Encounter Procedures POCT rapid strep A Assessment/Plan # muscle strain of neck VS. Pharyngitis --start steroid --Rapid strep negative, will send throat culture --use of NSAID, OTC for pain management --Discussed applying heat for pain relief, such as using a heating pad. Be careful not to burn yourself --encouraged stretching, Rest and ice --Discusses Salonpas pain patches --f/u with PCP or in ER if symptoms worsen or persist. Disposition Treatment plan including expectations, follow up, and return precautions discussed with patient/parent, verbalizes understanding. Medication dosage, use, and potential adverse reactions discussed with patient/parent. Advised to follow up with PCP if symptoms do not resolve as expected or sooner if condition worsens. Discussed Signs/symptoms warranting ER evaluation including worsening fever, increased shortness ofbreath, chest pain, severe N/V/D, or any other worrisome symptoms Patient and/or guardian was given an opportunity to ask questions, questions answered. Patient Education The rapid strep test performed at the [facility] Care today was NEGATIVE. Throat culture sent Take Tylenol (acetaminophen) or Advil/Motin (ibuprofen) as needed per package directions for fevers/pain. Gargle with warm salt water (1tsp salt/1 cup water) or warm tea with honey and lemon to soothe pain Frequent warm or cool liquids can be soothing, like ice chips, popsicles, chicken broth, and tea. If you still are not having relief with the above, you can try a Magic Mouthwash -Equal parts liquid antacid (e.g.Maalox) and children's Benadryl with a couple drops of Anbesol gargle and spit every 3-4 hours as needed. If you are not improving or worsening in the next 3-5 days you must RETURN to the clinic, go to your PCP, or Urgent Care/ER to be SEEN and reevaluated. Madie Tapia NP This office note has been partially dictated using [employer] software, and as a result portions of the record may have been created with this software. Occasional wrong-word or '[id number]' substitutions may have occurred due to the inherent limitations of voice recognition software. Read the chartcarefully and recognize, using context, where substitutions have occurred. ER CATCHER documented in this encounter Miscellaneous Notes * Addendum Note - Randal Glover LPN - 10/04/2024 4:45 PM CSTAddended by: RANDAL GLOVER on: 10/04/2024 06:12 PM Modules accepted: Orders ER CATCHER documented in this encounter Plan of Treatment Not on file documented as of this encounter Procedures Procedure Name Priority Date/Time Associated Diagnosis Comments POCT RAPID STREP Routine 10/04/2024 5:14 PM FEEDER CATCHER Pharyngitis, unspecified etiology documented in this encounter Results * Throat culture Throat (10/04/2024 10:01 PM FEEDER CATCHER) Report Final Report: No growth of pathogens. Comment:Testing performed by : [facility], [address] [place]., [address] Throat 10/04/2024 10:0 1 PM FEEDER CATCHER 10/05/2024 12:57 AM FEEDER CATCHER Narrative DERIAN PAGE - 10/06/2024 5:47 PM FEEDER CATCHER Testing performed by [facility] Microbiology Laboratory ([phone]). us Madie Tapia NP LAB MICROBIOLOGY - GENERAL ORD ERABLES Final Result [facility] [place] [address] [address] Department [place] [address] * POCT rapid strep A (10/04/2024 5:14 PM FEEDER CATCHER) Rapid Strep A, POC Negative Negative Swab 10/04/2024 5:14 PM FEEDER CATCHER us Madie Tapia NP POINT OF CARE TEST ORDERABLES Final Result documented in this encounter Visit Diagnoses Diagnosis Pharyngitis, unspecified etiology- Primary Neck muscle strain, initial encounter Pharyngitis, unspecified etiology Neck muscle strain, initial encounter documented in this encounter Historical Medications * This list may reflect changes made after this encounter. triamcinolone (KENALOG) 0.1 % ointment 09/29/2024 traMADoL (ULTRAM) 50 mg tablet methylphenidate ER (CONCERTA) 18 mg CR tablet Take 2 tablets (36 mg total) by mouth daily NuvaRing 0.12-0.015 mg/24 hr vaginal ring Insert 1 vaginal ring every month by vaginal route as directed for 30 days, for regulate periods. 09/29/2024 albuterol HFA (PROVENTIL HFA,VENTOLIN HFA,PROAIR HFA) 90 mcg/actuation inhaler INHALE 2 PUFFS BY MOUTH EVERY 4 TO 6 HOURS NEEDED FOR SHORTNESS OF BREATH OR WHEEZING clotrimazole-bet amethasone (LOTRISONE) cream Apply by topical route for 5 days. citalopram (CeleXA) 20 mg tablet Take 1 tablet (20 mg total) by mouth daily 4 added in this encounter Care Teams Tractor Sweeper Driver Relationship Specialty Start Date End Date Neda Carranza NP [address] [place] [address] PCP - General Family Medicine 06/30/24 Katie Kellogg MD [address] [place] [address] 09/27/20 Kyra Prieto NP [address] [place] [address] Nurse Practitioner Obstetrics and Gynecology 06/30/24 documented as of this encounter
--- OUTSIDE RECORDS SUMMARY | 2024-11-14 19:18 | XMS_ITS | Encounter Summary ---
Author Organization [facility] Healthcare Address [address] [place] [address] Care Team Providers Care Checkering Machine Adjuster Name Role Phone Katie Kellogg MD Primary Care Provider Encounter Details Date Type Department Care Team (Latest Contact Info) Description 04/18/2017 8:30 PM CDT - 04/18/2017 11:59 PM CDT Hospital Encounter [facility] OP INTERIM [phone] Ann Davies, [address] [address] [place] [place] [address] Discharge Disposition: Discharge to home or self care Social History Tobacco Use Types Packs/Day Years Used Date Smoking Tobacco: Never Assessed Comments Unknown Sex and Gender Information Value Date Recorded Sex Assigned at Not on file Legal Sex 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 GONORRHOEAE/C. TRACHOMATIS AMPLIFICATION TEST Routine Gen Lab 04/18/2017 4:06 PM CDT RPR Routine Gen Lab 04/18/2017 4:06 PM CDT documented in this encounter Results * N. gonorrhoeae/C. trachomatis amplification test (04/18/2017 4:06 PM CDT) Report Final Report: Negative for: ??Chlamydia trachomatis rRNA Negative for: ??Neisseria gonorrhoeae rRNA [facility] Urine 04/18/2017 4:06 PM CDT 04/18/2017 9:16 PM CDT [facility]ative [facility] - 04/18/2017 9:16 PM CDT Testing performed by the [employer] APTIMA Combo 2 Assay. This nucleic acid amplification test (NAAT) detects ribosomal RNA (rRNA) from Chlamydia trachomatis and Neisseria gonorrhoeae using target capture,and Deputy Sheriff Chief-Mediated Amplification (TMA). This test is approved by the [place] Food and Drug Administration for endocervical, vaginal, and male urethral swab specimens, in addition to male and female urine specimens. The performance characteristics for these specimen types have been verified by the [facility].The performance characteristics of this assay for pharyngeal and rectal specimens collected from cervical swab collection devices have been validated and verified by the [facility]. Verification studies support a lack of cross reactivity with other Neisseria species considered normal oropharyngeal bacterial kaushik. Rectal swab specimens containing excess stool may be inhibitory and result in false negatives for Chlamydia trachomatis or Neisseria gonorrhoeae. The performance characteristics of this test have not been evaluated in women or individuals less than 16 years of age. Ann Davies NP LAB MICROBIOLOGY - GENERAL ORDERABLES Final Result [facility] Department [place] [address] * HIV-1 and HIV-2 antibody with P24 antigen immunoassay (04/18/2017 4:06 PM CDT) HIV 1/2 ab + p24 ag Nonreactive Nonreactive [facility] Comment:Negative for HIV-1 a ntigen and HIV-1/ HIV-2 antibodies. No laboratory evidence of HIV infection. If acute HIV infection is suspected, consider testing for HIV-1 RNA. Blood specimen (specimen) 04/18/2017 4:06 PM CDT 04/18/2017 9:09 PM CDT us Ann Davies NP LAB MICROBIOLOGY - GENERAL ORDERABLES Final Result Performing Organization Address City/[facility] Co de Phone Number [facility] [place] [place] [address] * RPR, serum (04/18/2017 4:06 PM CDT) RPR Nonreactive [facility] Blood specimen (specimen) 04/18/2017 4:06 PM CDT 04/18/2017 9:09 PM CDT us Ann Davies NP LAB MICROBIOLOGY - GENERAL ORDERABLES Final Result Performing Organization Address [facility] de Phone Number [facility] [place] [place] [address] documented in this encounter Visit Diagnoses Not on filedocumented in this encounter Care Teams Checkering Machine Adjuster Relationship Specialty Start Date End Date Katie Kellogg MD [address] [place] [address] PCP - General 01/22/17 09/26/20 documented as of this encounter
--- OUTSIDE RECORDS SUMMARY | 2024-11-14 19:18 | XMS_ITS | Encounter Summary ---
Author Organization [facility] Healthcare Address [address] [place] [address] Care Team Providers Care Infant Babysitter Name Role Phone Katie Kellogg MD Primary Care Provider Encounter Details Date Type Department Care Team (Latest Contact Info) Description 01/22/2017 5:40 PM CDT - 01/22/2017 8:44 PM CDT Hospital Encounter [facility] [place] [address] Angeles Castle III, MD [address] [facility] [address] [place] [address] Nora Vasquez Discharge Disposition: Discharge to home or self care Social History Tobacco Use Types Packs/Day Years Used Date Smoking Tobacco: Never Assessed Comments Unknown Sex and Gender Information Value Date Recorded Sex Assigned at Not on file 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
--- OUTSIDE RECORDS SUMMARY | 2024-11-14 19:18 | XMS_ITS | Encounter Summary ---
Author Organization [facility] Healthcare Address [address] [place] [address] Care Team Providers Care Choral Director Name Role Phone Katie Kellogg MD Unavailable [phone] Katie Kellogg MD Primary Care Provider [phone] Katie Kellogg MD Primary Care Provider [phone] Encounter Details Date Type Department Care Team (Latest Contact Info) Description 09/27/2020 Orders Only [facility] OP INTERIM Juan José Jain PA [address] [place] [address] Social History Tobacco Use Types Packs/Day Years Used Date Smoking Tobacco: Never Comments No Sex and Gender Information Value Date Recorded Sex Assigned at Not on file Legal Sex Female 12:45 AM FEED CRUSHER Gender Identity Not on file Sexual Orientation Not on file documented as of this encounter Plan of Treatment Not on file documented as of this encounter Procedures Procedure Name Priority Date/Time Associated Diagnosis Comments URINE CULTURE Routine 09/27/2020 8:30 PM FEED CRUSHER documented in this encounter Results * Urine culture Urine, clean voided (09/27/2020 8:30 PM FEED CRUSHER) CULTURE URINE Culture yielded multiple organisms. This generally indicates contamination by normal periurethral kaushik at time of collection. No further testing will be performed on this specimen. Please resubmit if clinically indicated. >100,000 CFU/ml MIXED GRAM POSITIVE ORGANISMS [facility] [place][NOTE 2] Urine, clean voided 09/27/2020 8:30 PM FEED CRUSHER 09/27/2020 8:30 PM FEED CRUSHER Juan José NELSON LAB MICROBIOLOGY - GENERAL O RDERABLES [place] [address], [facility] [phone] documented in this encounter Visit Diagnoses Not on filedocumented in this encounter Care Teams Choral Director Relationship Specialty Start Date End Date Katie Kellogg MD [address] [place] [address] PCP - General 09/28/20 06/29/24 Katie Kellogg MD [address] [place] [address] PCP - General 09/27/20 09/27/20 Katie Kellogg MD [address] [place] [address] 09/27/20 documented as of this encounter
--- OUTSIDE RECORDS SUMMARY | 2024-11-14 19:18 | XMS_ITS | Encounter Summary ---
Author Organization [facility] Healthcare Address [address] [place] [address] Care Team Providers Care Classifications Officer Cc/Cm Name Role Phone Katie Kellogg MD Primary Care Provider Encounter Details Date Type Department Care Team (Late st Contact Info) Description 10/17/2017 8:51 AM HAT TRIMMER - 10/17/2017 11:59 PM HAT TRIMMER Hospital Encounter [facility] OP INTERIM [phone] Riddhi Bazan MD [address] [place] [place], [place] [id number] Discharge Disposition: Discharge to home or self care Social History Tobacco Use Types Packs/Day Years Used Date Smoking Tobacco: Never Assessed Comments Unknown Sex and Gender Information Value Date Recorded Sex Assigned at Not on file Legal Sex Female 12:45 AM HAT TRIMMER Gender Identity Not on file Sexual Orientation Not on file documented as of this encounter Discharge Disposition Disposition Code Departure Means Destination Discharge to home or self care documented in this encounter Plan of Treatment Not on file documented as of this encounter Visit Diagnoses Not on filedocumented in this encounter Care Teams Classifications Officer Cc/Cm Relationship Specialty Start Date End Date Katie Kellogg MD [address] [place], [place] [id number] PCP - General 01/22/17 09/26/20 documented as of this encounter
--- OUTSIDE RECORDS SUMMARY | 2024-11-14 19:18 | XMS_ITS | Clinical Summary ---
Author Organization [facility]spital Address [address] [place] [address] Care Team Providers Care Laboratory Miller Name Role Phone Katie Kellogg MD Unavailable [phone] Neda Carranza NP Primary Care Provider [phone] Kyra Prieto NP Unavailable [phone] Allergies Active Allergy Reactions Criticality Noted Date Comments Clindamycin Hives Reaction: HIVES, Sulfa (Sulfonamide Antibiotics) Hives Medium 04/11 Hives Vancomycin Fever Medium 06/30/2024 Medications FLUoxetine (PROzac) 10 mg tablet/capsule Take 1 tablet/capsule (10 mg total) by mouth daily for 10 days, THEN 2 tablet/capsule (20 mg total) daily. 90 capsule 1 06/30/20 24 Active clotrimazole-be tamethasone (LOTRISONE) cream Apply by [...] Asperger's disorder 12/27/2010 Periumbilical abdominal pain 09/08/2010 Encounters Date Type Department Care Team Description 10/04/2024 6:12 PM DREDGE MATE - 10/04/2024 11:59 PM DREDGE MATE Hospital Encounter [address] [address] Pharyngitis, unspecified etiology; Neck muscle strain, initial encounter Discharge Disposition: Discharge to home or self care 10/04/2024 4:45 PM DREDGE MATE Office Visit [facility] at [address] [address] Madie Tapia NP Pharyngitis, unspecified etiology (Primary Dx); Neck muscle strain, initial encounter from Last 3 Months Immunizations Name Administration Dates Next Due Influenza, Unspecified 11/11/2023(Deferr ed: Patient Refused),11/11/2022(Deferred: Patient Refused) Surgical History Surgery Date Site/Laterality Comments TONSILLECTOMY TEAR DUCT SURGERY EYE SURGERY FINGER SURGERY OVARIAN CYST REMOVAL NOSE SURGERY Medical History Medical History Date Comments Autism spectrum disorder Chronic pain disorder Depression Anxiety Misophonia Family History Medical History Relation Name Comments Autism Cousin Anxiety disorder Father Depression Father Hyperlipidemia Father Hypertension Father ADD / ADHD Mother Anxiety disorder Mother Depression Mother Learning disabilities Mother OCD Mother Relation Name Status Comments Cousin Father Mother Social History Tobacco Use Types Packs/Day Years Used Date Smoking Tobacco: Never PHQ-2 Answer Date Recorded PHQ-2 Total Score (If total score is 3 or more points, staff should administer the PHQ-9) 6 06/30/2024 Comments No Sex and Gender Information Value Date Recorded Sex Assigned at Not on file Legal Sex Female 12:45 AM DREDGE MATE Gender Identity Not on file Sexual Orientation Not on file Obstetrics History Last Filed Vital Signs Vital Sign Reading Time Taken Comments Blood Pressure 116/78 10/04/2024 4:47 PM DREDGE MATE Pulse 70 10/04/2024 4:47 PM DREDGE MATE Temperature 36.8 ??C (98.3 ??F) 10/04/2024 4:47 PM CS T Respiratory Rate 20 10/04/2024 4:47 PM DREDGE MATE Oxygen Saturation 98% 10/04/2024 4:47 PM DREDGE MATE Inhaled Oxygen Concentration - - Weight 72.6 kg (160 lb) 10/04/2024 4:47 PM DREDGE MATE Height 160 cm (5' 3 ) 10/04/2024 4:47 PM DREDGE MATE Body Mass Index 28.34 10/04/2024 4:47 PM DREDGE MATE Plan of Treatment Health Maintenance Due Date Last Done Comments Hepatitis C Screening 2000 Meningococcal B Vaccine (1 o f 2 - Patient Seeks Protection) 2016 Regular Well Visit/Exam 18-64 2018 Chlamydia and Gonorrhea (GC/ CT) Screening 04/23/2020 04/23/2019, 07/24/2017, 04/18/2017 DTaP/Tdap/Td Vaccine (7 - Td or Tdap) 05/07/2022 05/07/2012, 05/29/2006, 05/29/2006, Additional history exists Covid-19 Vaccine (3 - 2023-2 5 season) 2024 05/01/2021, 04/03/2021 Influenza Vaccine (#1) 2024 , 09/30/2014, 11/20/2013, Additional history exists Cervical Cancer Screening 04/30/20252023, 10/08/2023, 01/24/2023 Depression Screening 06/30/2025 06/30/2024, 06/30/20 Pneumococcal vaccine <65 Completed 002, 10/04/2001, 06/17/2001, Additional history exists Varicella Vaccines Completed 06/09/2010, 01/23/2002 HPV Vaccines Completed 07/24/2011, 01/10, 12/22/2010 Procedures Procedure Name Priority Date/Time Associated Diagnosis Comments THROAT CULTURE Routine 10/04/2024 10:01 PM DREDGE MATE Pharyngitis, unspecified etiology Neck muscle strain, initial encounter POCT RAPID STREP Routine 10/04/2024 5:14 PM DREDGE MATE Pharyngitis, unspecified etiology HM PAP SMEAR Routine 10/08/2023 9:30 AM DREDGE MATE N. GONORRHOEAE/C. TRACHOMATIS AMPLIFICATION TEST STAT 04/23/2019 5:16 PM CDT from Last 3 Months or Most Recently Relevant to Health Maintenance Results * Throat culture Throat (10/04/2024 10:01 PM DREDGE MATE) Report Final Report: No growth of pathogens. Comment:Testing performed by : [facility], [address] [place]., [address] Throat 10/04/2024 10:0 1 PM DREDGE MATE 10/05/2024 12:57 AM DREDGE MATE Narrative DERIAN PAGE - 10/06/2024 5:47 PM DREDGE MATE Testing performed by [facility] Microbiology Laboratory ([phone]). us Madie Tapia NP LAB MICROBIOLOGY - GENERAL ORD ERABLES Final Result [facility] [address] Department [place] [address] * POCT rapid strep A (10/04/2024 5:14 PM DREDGE MATE) Rapid Strep A, POC Negative Negative Swab 10/04/2024 5:14 PM DREDGE MATE us Madie Tapia NP POINT OF CARE TEST ORDERABLES Final Result * HM PAP SMEAR (10/08/2023 9:30 AM DREDGE MATE) Historical Provider HEALTH MAINTENANCE Final Result * N. gonorrhoeae/C. trachomatis amplification test Urine (04/23/2019 5:16 PM CDT) Report Final Report: Negative for: ??Chlamydia trachomatis rRNA Negative for: ??Neisseria gonorrhoeae rRNA [facility] Comment:Testing performed by : [facility], [address] [place]., [address] Urine 04/23/2019 5:16 PM CDT 04/23/2019 7:20 PM CDT Narrative [facility] - 04/24/2019 1:26 PM CDT Testing performed by the Gen-Probe [employer] APTIMA Combo 2 Assay. This nucleic acid amplification test (NAAT) detects ribosomal RNA (rRNA) from Chlamydia trachomatis and Neisseria gonorrhoeae using target capture,and Driver Education Instructor-Mediated Amplification (TMA). This test is approved by the [place] Food and Drug Administration for endocervical, vaginal, and male urethral swab specimens, in addition to male and female urine specimens. The performance characteristics for these specimen types have been verified by the [facility]biology Laboratory.The performance characteristics of this assay for pharyngeal and rectal specimens collected from cervical swab collection devices have been validated and verified by the [facility]biology Laboratory. 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
--- OUTSIDE RECORDS SUMMARY | 2024-11-14 19:18 | XMS_ITS | Encounter Summary ---
Author Organization [facility] Healthcare Address [address] [place] [address] Care Team Providers Care Can Technician Name Role Phone Katie Kellogg MD Unavailable [phone] Neda Carranza NP Primary Care Provider [phone] Kyra Prieto NP Unavailable [phone] Reason for Referral * Consultation (Routine) - Closed Specialty Diagnoses / Procedures Referred By Contac t Referred To Contact Psychiatry Diagnoses Severe episode of recurrent major depressive disorder, without psychotic features (HCC) Anxiety Asperger's disorder Obsessive-compulsive disorder, unspecified type Neda Carranza NP [address] [facility] [address] [place] [address] Phone: tel: fax: [place] [address] [facility] [address], [place] [address] Phone: tel: fax: Referral ID Status Reason Start Date Expiration Date V isits Requested Visits Authorized [id number] Closed Specialty Services Required 06/30/2024 07/30/2025 12 12 Question Answer Please select the performing region: [facility] [[id number]] Please select the performing department: [facility] [[id number]] To provider: SENDY MAGAÑA [[id number]] # of visits: 12 Reason for Visit * Reason Comments New Patient Pt states to [facility]. Depression Pt states she is bee n dealing with depression and anxiety panic attacks. Pt mother states that she has tried other medications for it and didn't seem to work. Encounter Details Date Type Department Care Team (Late st Contact Info) Description 06/30/2024 3:30 PM CDT Office Visit [facility] Primary Care at [address] [address] Neda Carranza NP [facility] [address] [place] [address] Severe episode of recurrent major depressive disorder, without psychotic features (HCC) (Primary Dx); Anxiety; Asperger's disorder; Obsessive-compulsive disorder, unspecified type; Impaired fasting glucose; Encounter for hepatitis C screening test for low risk patient; Lipid screening; Thyroid disorder screen; Vitamin D deficiency; Iron deficiency anemia, unspecified iron deficiency anemia type Social History Tobacco Use Types Packs/Day Years Used Date Smoking Tobacco: Never PHQ-2 Answer Date Recorded PHQ-2 Total Score (If total score is 3 or more points, staff should administer the PHQ-9) 6 06/30/2024 Comments No Sex and Gender Information Value Date Recorded Sex Assigned at Not on file Legal Sex Female 12:45 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 CLAMPER Gender Identity Not on file Sexual Orientation Not on file documented as of this encounter Last Filed Vital Signs Vital Sign Reading Time Taken Comments Blood Pressure 100/62 06/30/2024 3:29 PM CDT Pulse 72 06/30/2024 3:29 PM CDT Temperature 36.9 ??C (98.5 ??F) 06/30/2024 3:29 PM CD T Respiratory Rate - - Oxygen Saturation 97% 06/30/2024 3:29 PM CDT Inhaled Oxygen Concentration - - Weight 72.6 kg (160 lb) 06/30/2024 3:29 PM CDT Height 160 cm (5' 3 ) 06/30/2024 3:29 PM CDT Body Mass Index 28.34 06/30/2024 3:29 PM CDT documented in this encounter Patient Instructions * Patient Instructions* Neda Carranza NP - 06/30/2024 3:30 PM CDT Start Fluoxetine 10 mg daily x 10 days and then increase to 20 mg daily. Hydroxyzine (Atarax) 10 mg three times daily as needed for anxiety, can take at night 20 mg as needed. Referral to psychiatry placed. [facility] Address: [address], [place] [address] documented in this encounter Ordered Prescriptions Prescription Sig Dispense Quantity Refills Last Filled Start Date End Date FLUoxetine (PROzac) 10 mg tablet/capsule Take 1 tablet/capsul e (10 mg total) by mouth daily for 10 days, THEN 2 tablet/capsul e (20 mg total) daily. 90 capsule 1 06/30/2024 hydrOXYzine (ATARAX) 10 mg tablet Take 1 tablet (10 mg total) by mouth every 8 (eight) hours as needed for anxiety 60 tablet 1 06/30/2024 4 documented in this encounter Progress Notes * Neda Carranza NP - 06/30/2024 3:30 PM CDT Images from the original note were not included. Patient ID: Angela Peterson is a 23 y.o. female. Assessment/Plan Diagnoses and all orders for this visit: Severe episode of recurrent major depressive disorder, without psychotic features (HCC) (Primary) Assessment & Plan: Not at goal and worsening. PHQ 21 in office, has passive SI thoughts but not active plan or intent. Has had been on multiple SSRI's but no improvement. She had testing performed and it showed the SSRI class was not overly beneficial. However, it showed that Fluoxetine would be a good choice. Provider in the past would not put pt onit because she was pre-teen. Patient and her mother interested in trying Prozac. Will trial Prozac, education provided. Will also trial Hydroxyzine prn. Also encourage counseling and Psychiatry referral placed. Orders: - Ambulatory referral to Psychiatry; Future Anxiety Assessment & Plan: Not at goal and worsening. PHQ 21 in office, has passive SI thoughts but not active plan or intent. Has had been on multiple SSRI's but no improvement. She had testing performed and it showed the SSRI class was not overly beneficial. However, it showed that Fluoxetine would be a good choice. Provider in the past would not put pt onit because she was pre-teen. Patient and her mother interested in trying Prozac. Will trial Prozac, education provided. Will also trial Hydroxyzine prn. Also encourage counseling and Psychiatry referral placed Orders: - Ambulatory referral to Psychiatry; Future - CBC with auto differential; Future - Comprehensive metabolic panel; Future - Thyroid Function [place]; Future Asperger's disorder - Ambulatory referral to Psychiatry; Future Obsessive-compulsive disorder, unspecified type - Ambulatory referral to Psychiatry; Future Impaired fasting glucose - Hemoglobin A1c; Future Encounter for hepatitis C screening test for low risk patient - Hepatitis C antibody Blood; Future Lipid screening - Lipid panel; Future Thyroid disorder screen - Thyroid Function [place]; Future Vitamin D deficiency - Vitamin D 25 hydroxy; Future Iron deficiency anemia, unspecified iron deficiency anemia type - Iron profile w/ IBC; Future Other orders - FLUoxetine (PROzac) 10 mg tablet/capsule; Take 1 tablet/capsule (10 mg total) by mouth daily for 10 days, THEN 2 tablet/capsule (20 mg total) daily. - hydrOXYzine (ATARAX) 10 mg tablet; Take 1 tablet (10 mg total) by mouth every 8 (eight) hours as needed for anxiety Follow up 6 Weeks Chief Complaint New Patient (Pt states to establish care.) and Depression (Pt states she is been dealing with depression and anxiety panic attacks. Pt mother states that she has tried other medications for it and didn't seem to work. ) New patient here to establish care. Patient here today to discuss chronic conditions and discuss labs/have labs ordered. Review of Systems Respiratory: Negative for shortness of breath. Cardiovascular: Negative for chest pain. Psychiatric/Behavioral: Positive for dysphoric mood. Negative for suicidal ideas. The patient is nervous/anxious. BP 100/62 (BP Location: Right arm, Patient Position: Sitting) Pulse 72 Temp 36.9 ??C (98.5 ??F)(Temporal) Ht 160 cm (5' 3 ) Wt 72.6 kg (160 lb) SpO2 97% BMI 28.34 kg/m?? Physical Exam Constitutional: Appearance: Normal appearance. HENT: Head: Normocephalic. Right Ear: External ear normal. Left Ear: External ear normal. Eyes: Extraocular Movements: Extraocular movements intact. Pulmonary: Effort: Pulmonary effort is normal. Neurological: General: No focal deficit present. Mental Status: She is alert and oriented to person, place, and time. Psychiatric: Mood and Affect: Mood is depressed. Speech: Speech normal. Behavior: Behavior normal. Thought Content: Thought content includes suicidal ideation. Thought content does not include homicidal ideation. Thought content does not include homicidal or suicidal plan. Neda Carranza NP Cosigned by Tomas Puente MD at 07/02/2024 9:14 AM CDT documented in this encounter Miscellaneous Notes * Assessment & Plan Note - Neda Carranza NP - 06/30/2024 4:31 PM CDTAssociated Problem(s): Anxiety Not at goal and worsening. PHQ 21 in office, has passive SI thoughts but not active plan or intent. Has had been on multiple SSRI's but no improvement. She had testing performed and it showed the SSRI class was not overly beneficial. However, it showed that Fluoxetine would be a good choice. Provider in the past would not put pt onit because she was pre-teen. Patient and her mother interested in trying Prozac. Will trial Prozac, education provided. Will also trial Hydroxyzine prn. Also encourage counseling and Psychiatry referral placed * Assessment & Plan Note - Neda Carranza NP - 06/30/2024 3:54 PM CDTAssociated Problem(s): Severe episode of recurrent major depressive disorder, without psychotic features (HCC) Not at goal and worsening. PHQ 21 in office, has passive SI thoughts but not active plan or intent. Has had been on multiple SSRI's but no improvement. She had testing performed and it showed the SSRI class was not overly beneficial. However, it showed that Fluoxetine would be a good choice. Provider in the past would not put pt onit because she was pre-teen. Patient and her mother interested in trying Prozac. Will trial Prozac, education provided. Will also trial Hydroxyzine prn. Also encourage counseling and Psychiatry referral placed. documented in this encounter Plan of Treatment Scheduled Orders Name Type Priority Associated Diagnoses Orde r Schedule CBC with auto differential Lab Routine Anxiety Expected: 06/30/2024, Expires: 06/30/2025 Comprehensive metabolic panel Lab Routine Anxiety Expected: 06/30/2024, Expires: 06/30/2025 Hemoglobin A1c Lab Routine Impaired fasting glucose Expected: 06/30/2024, Expires: 06/30/2025 Hepatitis C antibody Blood Microbiology Routine Encounter for hepatitis C screening test for low risk patient Expected: 06/30/2024, Expires: 06/30/2025 Lipid panel Lab Routine Lipid screening Expected: 06/30/2024, Expires: 06/30/2025 Thyroid Function [place] Lab Routine Anxiety Thyroid disorder screen Expected: 06/30/2024, Expires: 06/30/2025 Vitamin D 25 hydroxy Lab Routine Vitamin D deficiency Expected: 06/30/2024, Expires: 06/30/2025 Iron profile w/ IBC Lab Routine Iron deficiency anemia, unspecified iron deficiency anemia type Expected: 06/30/2024, Expires: 06/30/2025 Scheduled Referrals Name Type Priority Associated Diagnoses Order Schedule Ambulatory referral to Psychiatry Outpatient Referral Routine Severe episode of recurrent major depressive disorder, without psychotic features (HCC) Anxiety Asperger's disorder Obsessive-compulsiv e disorder, unspecified type 1 Occurrences starting 06/30/2024 until 12/31/2024 documented as of this encounter Visit Diagnoses Diagnosis Severe episode of recurrent major depressive disorder, without psychotic features (HCC)- Primary Anxiety Anxiety state, unspecified Asperger's disorder Other specified pervasive developmental disorders, current or active state Obsessive-compulsive disorder, unspecified type Impaired fasting glucose Encounter for hepatitis C screening test for low risk patient Lipid screening Screening for lipoid disorders Thyroid disorder screen Screening for thyroid disorder Vitamin D deficiency Iron deficiency anemia, unspecified iron deficiency anemia type documented in this encounter Discontinued Medications Medication Sig Discontinue Reason Start Date End Da te amoxicillin-clavulanate (AUGMENTIN) 875-125 mg per tablet TK 1 T PO BID FOR 10 DAYS 04/22/2019 06/30/2024 documented as of this encounter Care Teams Can Technician Relationship Specialty Start Date End Date Neda Carranza NP [address] [place] [address] PCP - General Family Medicine 06/30/24 Katie Kellogg MD [address] [place] [address] 09/27/20 Kyar Prieto NP [address] [place] [address] Nurse Practitioner Obstetrics and Gynecology 06/30/24 documented as of this encounter
--- OUTSIDE RECORDS SUMMARY | 2024-11-14 19:19 | XMS_ITS | Encounter Summary ---
Author Organization [facility] Facility Care Team Providers Care Carburetor Repairer Name Role Phone Unavailable Primary Care Provider Unavailabl e Encounter Details Date Type Department Care Team (Latest Contact Info) Description 09/11/2011 2:02 PM CDT - 09/11/2011 6:11 PM CDT Hospital Encounter [facility] Overweight; Dietary counseling and surveillance; Body mass index, pediatric, greater than or equal to 95th percentile for age Social History Tobacco Use Types Packs/Day Years Used Date Smoking Tobacco: Never Assessed Comments Unknown Sex and Gender Information Value Date Recorded Sex Assigned at Not on file Legal Sex Female 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
--- OUTSIDE RECORDS SUMMARY | 2024-11-14 19:19 | XMS_ITS | Encounter Summary ---
Author Organization [facility] Facility Care Team Providers Care Strategic Procurement Manager Name Role Phone Unavailable Primary Care Provider Unavailabl e Encounter Details Date Type Department Care Team (Latest Contact Info) Description 10/01/2012 10:18 AM LANG PATH THERAPIST - 10/01/2012 11:59 PM LANG PATH THERAPIST Hospital Encounter [facility] Rebekah Atkinson MD [address] [facility] [address] [place] [address] Conductive hearing loss, middle ear Social History Tobacco Use Types Packs/Day Years Used Date Smoking Tobacco: Never Assessed Comments Unknown Sex and Gender Information Value Date Recorded Sex Assigned at Not on file Legal Sex Female 12:45 AM LANG PATH THERAPIST Gender Identity Not on file Sexual Orientation Not on file documented as of this encounter Plan of Treatment Not on file documented as of this encounter Visit Diagnoses Diagnosis Conductive hearing loss, middle ear documented in this encounter
--- OUTSIDE RECORDS SUMMARY | 2024-11-14 19:19 | XMS_ITS | Encounter Summary ---
Author Organization [facility] Facility Care Team Providers Care Electrician Rectifier Maintenance Name Role Phone Unavailable Primary Care Provider Unavailabl e Encounter Details Date Type Department Care Team (Late st Contact Info) Description 12/08/2013 7:39 AM SEAL MIXER - 12/08/2013 11:59 PM SEAL MIXER Hospital Encounter [facility] Meghna De Leon MD [address] [facility] [address] [place] [address] Abdominal pain Social History Tobacco Use Types Packs/Day Years Used Date Smoking Tobacco: Never Assessed Comments Unknown Sex and Gender Information Value Date Recorded Sex Assigned at Not on file Legal Sex Female 12:45 AM SEAL MIXER Gender Identity Not on file Sexual Orientation Not on file documented as of this encounter Plan of Treatment Not on file documented as of this encounter Procedures Procedure Name Priority Date/Time Associated Diagnosis Comments US ABDOMEN COMPLETE Routine 12/08/2013 7 :57 AM SEAL MIXER documented in this encounter Results * US Abdomen Complete (12/08/2013 7:57 AM SEAL MIXER) Anatomical Region Laterality Modality Abdomen N/A Ultrasound 12/08/2013 7:57 AM SEAL MIXER Narrative 12/08/2013 8:00 AM SEAL MIXER KYLER WILSON M.D. FINAL REPORT ACC# ??Date Time ??Exam [id number] Dec 08, 2013 07:57:00 [id number] SONO ABD COMPLT EXAMINATION: ?Abdominal Sonogram COMPARISON: ?? None HISTORY: ??Abdominal pain for one week. Elevated lipase FINDINGS: The visualized portions of the pancreas are unremarkable. The liver is of normal architecture without focal masses or biliary ductal dilatation. The gall bladder is normal. The visualized portions of the aorta and IVC are normal. There is no splenomegaly. The right kidney measures 8.7 cm. This is within normal limits for the patient's age. There is no hydronephrosis. There is no cortical thinning. The renal architecture is normal. The left kidney measures 9.8 cm. This is within normal limits for the patient's age. There is no hydronephrosis. There is no cortical thinning. The renal architecture is normal. The bladder is empty. IMPRESSION: ?Normal. Requested By: MEGHNA DE LEON M.D. Dictated By: ?? KYLER WILSON M.D. ??on Dec 08 2013 ??8:00A This document has been electronically signed by: KYLER WILSON M.D. on Dec 08 2013 ??8:00A Procedure Note Provider, MD Serafin - 03/08/2017 KYLER WILSON M.D. FINAL REPORT ACC# Date Time Exam [id number] Dec 08, 2013 07:57:00 [id number] SONO ABD COMPLT EXAMINATION: Abdominal Sonogram COMPARISON: None HISTORY: Abdominal pain for one week. Elevated lipase FINDINGS: The visualized portions of the pancreas are unremarkable. The liver is of normal architecture without focal masses or biliary ductal dilatation. The gall bladder is normal. The visualized portions of the aorta and IVC are normal. There is no splenomegaly. The right kidney measures 8.7 cm. This is within normal limits for the patient's age. There is no hydronephrosis. There is no cortical thinning. The renal architecture is normal. The left kidney measures 9.8 cm. This is within normal limits for the patient's age. There is no hydronephrosis. There is no cortical thinning. The renal architecture is normal. The bladder is empty. IMPRESSION: Normal. Requested By: MEGHNA DE LEON M.D. Dictated By: KYLER WILSON M.D. on Dec 08 2013 8:00A This document has been electronically signed by: KYLER WILSON M.D. on Dec 08 2013 8:00A us Historical Provider MD PARKER US PROCEDURES Final R esult documented in this encounter Visit Diagnoses Diagnosis Abdominal pain Abdominal pain, unspecified site documented in this encounter
--- OUTSIDE RECORDS SUMMARY | 2024-11-14 19:19 | XMS_ITS | Encounter Summary ---
Author Organization [facility] Facility Care Team Providers Care Game Agent Name Role Phone Unavailable Primary Care Provider Unavailabl e Encounter Details Date Type Department Care Team (Late st Contact Info) Description 10/08/2012 3:16 PM KEY PUNCH TEACHER - 10/08/2012 11:59 PM KEY PUNCH TEACHER Hospital Encounter [facility] CL[facility]CON[facility] Jerry Quiroz MD [address] [place] [id number] Visual field constriction Social History Tobacco Use Types Packs/Day Years Used Date Smoking Tobacco: Never Assessed Comments Unknown Sex and Gender Information Value Date Recorded Sex Assigned at Not on file Legal Sex Female 12:45 AM KEY PUNCH TEACHER Gender Identity Not on file Sexual Orientation Not on file documented as of this encounter Plan of Treatment Not on file documented as of this encounter Visit Diagnoses Diagnosis Visual field constriction Generalized contraction or constriction in visual field documented in this encounter
--- OUTSIDE RECORDS SUMMARY | 2024-11-14 19:19 | XMS_ITS | Encounter Summary ---
Author Organization [facility] Facility Care Team Providers Care Sand Cleaning Machine Operator Name Role Phone Unavailable Primary Care Provider Unavailabl e Encounter Details Date Type Department Care Team (Latest Contact Info) Description 10/21/2012 12:01 AM SCRUB TECHNICIAN - 11/10/2012 4:05 PM SCRUB TECHNICIAN Hospital Encounter [facility] CL[facility]CON[facility] Active autistic disorder Social History Tobacco Use Types Packs/Day Years Used Date Smoking Tobacco: Never Assessed Comments Unknown Sex and Gender Information Value Date Recorded Sex Assigned at Not on file Legal Sex Female 12:45 AM SCRUB TECHNICIAN Gender Identity Not on file Sexual Orientation Not on file documented as of this encounter Plan of Treatment Not on file documented as of this encounter Visit Diagnoses Diagnosis Active autistic disorder Autistic disorder, current or active state documented in this encounter
--- OUTSIDE RECORDS SUMMARY | 2024-11-14 19:19 | XMS_ITS | Encounter Summary ---
Author Organization [facility] Facility Care Team Providers Care Teacher Specialist Name Role Phone Unavailable Primary Care Provider Unavailabl e Encounter Details Date Type Department Care Team (Latest Contact Info) Description 05/19/2013 12:01 AM CDT - 06/10/2013 12:37 PM CDT Hospital Encounter [facility] Active autistic disorder Social History Tobacco Use Types Packs/Day Years Used Date Smoking Tobacco: Never Assessed Comments Unknown Sex and Gender Information Value Date Recorded Sex Assigned at Not on file Legal Sex Female 12:45 AM OPTICIAN APPRENTICE Gender Identity Not on file Sexual Orientation Not on file documented as of this encounter Plan of Treatment Not on file documented as of this encounter Visit Diagnoses Diagnosis Active autistic disorder Autistic disorder, current or active state documented in this encounter
--- OUTSIDE RECORDS SUMMARY | 2024-11-14 19:19 | XMS_ITS | Encounter Summary ---
Author Organization [facility] Facility Care Team Providers Care Manager Utilities Name Role Phone Unavailable Primary Care Provider Unavailabl e Encounter Details Date Type Department Care Team (Latest Contact Info) Description 06/17/2012 12:01 AM CDT - 07/10/2012 2:04 PM CDT Hospital Encounter [facility] Active autistic disorder Social History Tobacco Use Types Packs/Day Years Used Date Smoking Tobacco: Never Assessed Comments Unknown Sex and Gender Information Value Date Recorded Sex Assigned at Not on file Legal Sex Female 12:45 AM MARKETING ADMINISTRATOR Gender Identity Not on file Sexual Orientation Not on file documented as of this encounter Plan of Treatment Not on file documented as of this encounter Visit Diagnoses Diagnosis Active autistic disorder Autistic disorder, current or active state documented in this encounter
--- OUTSIDE RECORDS SUMMARY | 2024-11-14 19:19 | XMS_ITS | Encounter Summary ---
Author Organization [facility] Facility Care Team Providers Care Director Of Strategic Sourcing Name Role Phone Unavailable Primary Care Provider Unavailabl e Encounter Details Date Type Department Care Team (Latest Contact Info) Description 05/07/2011 12:35 PM CDT - 05/07/2011 11:59 PM CDT Hospital Encounter [facility] Katie Toribio MD [address] [place] [address] Elevation of level of transaminase and lactic acid dehydrogenase (LDH) Social History Tobacco Use Types Packs/Day Years Used Date Smoking Tobacco: Never Assessed Comments Unknown Sex and Gender Information Value Date Recorded Sex Assigned at Not on file Legal Sex Female 12:45 AM WEB ANALYST Gender Identity Not on file Sexual Orientation Not on file documented as of this encounter Plan of Treatment Not on file documented as of this encounter Visit Diagnoses Diagnosis Elevation of level of transaminase and lactic acid dehydrogenase (LDH) documented in this encounter
--- OUTSIDE RECORDS SUMMARY | 2024-11-14 19:19 | XMS_ITS | Encounter Summary ---
Author Organization [facility] Facility Care Team Providers Care Hydraulic Billet Maker Name Role Phone Unavailable Primary Care Provider Unavailabl e Encounter Details Date Type Department Care Team (Latest Contact Info) Description 03/13/2011 5:19 PM CDT - 04/10/2011 9:28 AM CDT Hospital Encounter [facility] Other specified pervasive developmental disorders; Other developmental disorder of speech or language Social History Tobacco Use Types Packs/Day Years Used Date Smoking Tobacco: Never Assessed Comments Unknown Sex and Gender Information Value Date Recorded Sex Assigned at Not on file Legal Sex Female 12:45 AM PUFFER TENDER Gender Identity Not on file Sexual Orientation Not on file documented as of this encounter Plan of Treatment Not on file documented as of this encounter Visit Diagnoses Diagnosis 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
--- OUTSIDE RECORDS SUMMARY | 2024-11-14 19:19 | XMS_ITS | Encounter Summary ---
Author Organization [facility] Facility Care Team Providers Care Estate Conservator Name Role Phone Unavailable Primary Care Provider Unavailabl e Encounter Details Date Type Department Care Team (Latest Contact Info) Description 01/30/2011 4:36 PM CDT - 02/08/2011 8:17 AM CDT Hospital Encounter [facility] CLINCON[facility] Other specified pervasive developmental disorders Social History Tobacco Use Types Packs/Day Years Used Date Smoking Tobacco: Never Assessed Comments Unknown Sex and Gender Information Value Date Recorded Sex Assigned at Not on file Legal Sex Female 12:45 AM MUSIC COMPOSER Gender Identity Not on file Sexual Orientation Not on file documented as of this encounter Plan of Treatment Not on file documented as of this encounter Visit Diagnoses Diagnosis Other specified pervasive developmental disorders documented in this encounter
--- OUTSIDE RECORDS SUMMARY | 2024-11-14 19:19 | XMS_ITS | Encounter Summary ---
Author Organization [facility] Facility Care Team Providers Care Shop Mechanic Name Role Phone Unavailable Primary Care Provider Unavailabl e Encounter Details Date Type Department Care Team (Latest Contact Info) Description 07/03/2011 4:17 PM CDT - 07/11/2011 8:47 AM CDT Hospital Encounter [facility] CLINCON[facility] Other specified pervasive developmental disorders Social History Tobacco Use Types Packs/Day Years Used Date Smoking Tobacco: Never Assessed Comments Unknown Sex and Gender Information Value Date Recorded Sex Assigned at Not on file Legal Sex Female 12:45 AM EQUIPMENT SERVICE ENGINEER Gender Identity Not on file Sexual Orientation Not on file documented as of this encounter Plan of Treatment Not on file documented as of this encounter Visit Diagnoses Diagnosis Other specified pervasive developmental disorders documented in this encounter
--- OUTSIDE RECORDS SUMMARY | 2024-11-14 19:19 | XMS_ITS | Encounter Summary ---
Author Organization [facility] Facility Care Team Providers Care Rn Pediatric Name Role Phone Unavailable Primary Care Provider Unavailabl e Encounter Details Date Type Department Care Team (Latest Contact Info) Description 02/24/2013 3:23 PM CDT - 02/24/2013 11:59 PM CDT Hospital Encounter [facility] CLINCONV Central hearing loss Social History Tobacco Use Types Packs/Day Years Used Date Smoking Tobacco: Never Assessed Comments Unknown Sex and Gender Information Value Date Recorded Sex Assigned at Not on file Legal Sex Female 12:45 AM BICYCLE TAXI DRIVER Gender Identity Not on file Sexual Orientation Not on file documented as of this encounter Plan of Treatment Not on file documented as of this encounter Visit Diagnoses Diagnosis Central hearing loss documented in this encounter
--- OUTSIDE RECORDS SUMMARY | 2024-11-14 19:19 | XMS_ITS | Encounter Summary ---
Author Organization [facility] Facility Care Team Providers Care Spot Welder Name Role Phone Unavailable Primary Care Provider Unavailabl e Encounter Details Date Type Department Care Team (Latest Contact Info) Description 07/29/2012 3:15 PM CDT - 08/10/2012 12:36 PM CDT Hospital [facility] Active autistic disorder Social History Tobacco Use Types Packs/Day Years Used Date Smoking Tobacco: Never Assessed Comments Unknown Sex and Gender Information Value Date Recorded Sex Assigned at Not on file Legal Sex Female 12:45 AM WORKERS COMPENSATION MANAGER Gender Identity Not on file Sexual Orientation Not on file documented as of this encounter Plan of Treatment Not on file documented as of this encounter Visit Diagnoses Diagnosis Active autistic disorder Autistic disorder, current or active state documented in this encounter
--- OUTSIDE RECORDS SUMMARY | 2024-11-14 19:19 | XMS_ITS | Encounter Summary ---
Author Organization [facility] Facility Care Team Providers Care Energy Project Manager Name Role Phone Unavailable Primary Care Provider Unavailabl e Encounter Details Date Type Department Care Team (Late st Contact Info) Description 12/25/2012 12:52 PM RADIO INTERFERENCE TROUBLE SHOOTER - 12/25/2012 5:30 PM RADIO INTERFERENCE TROUBLE SHOOTER Hospital Encounter [facility] Jerry Quiroz MD [address] [place] [address] [address] [place] [address] Exotropia; Other specified pervasive developmental disorders; Suppression of binocular vision; Specified congenital anomaly of lacrimal passages; Attention deficit disorder with hyperactivity; Lack of expected normal physiological development; Personal history of allergy to sulfonamides; History of allergy to other anti-infective agent Social History Tobacco Use Types Packs/Day Years Used Date Smoking Tobacco: Never Assessed Comments Unknown Sex and Gender Information Value Date Recorded Sex Assigned at Not on file Legal Sex Female 12:45 AM RADIO INTERFERENCE TROUBLE SHOOTER Gender Identity Not on file Sexual Orientation Not on file documented as of this encounter Last Filed Vital Signs Vital Sign Reading Time Taken Comments Blood Pressure - - Pulse - - Temperature - - Respiratory Rate - - Oxygen Saturation - - Inhaled Oxygen Concentration - - Weight 48.1 kg (106 lb) 12/24/2012 11:58 AM RADIO INTERFERENCE TROUBLE SHOOTER Height - - Body Mass Index - - documented in this encounter Miscellaneous Notes * Op Note - ProviderSerafin MD - 12/25/2012 12:00 AM CST [facility] OPERATIVE REPORT NAME: ANGELA KIRKLAND DATE: 12/25/2012 DATE OF : 2000 RECORD NUMBER: [id number] SURGEON: Farhat Quiroz MD ATTENDING: Farhat Quiroz MD SUSTAINABLE COMMUNITIES DESIGNER: Arie Starks MD INDICATIONS FOR SURGERY: Exam under anesthesia was required for detailed examination of the eyes under controlled conditions, allowing precise documentation of eye pressure and careful biomicroscopy and ophthalmoscopy of the anterior and posterior segments of the eyes not possible in an awake state in the clinic because of inability of this pediatric patient to cooperate fully. Strabismus surgery was required to improve binocular fusion and the binocular visual field, to mitigate diplopia and suppression, to correct compensatory head posture, to augment the range of motion, and to reduce unsightly misalignment of the visual axes. PREOPERATIVE DIAGNOSIS: 1. Strabismus: Decompensated exotropia, pseudo-divergence excess type. 2. Asperger syndrome with developmental delay. 3. 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 4. 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 5. 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 6. Funduscopic examination without signs of optic neuropathy or retinal dystrophy. 7. Refractive error: Minimal astigmatism not warranting spectacle correction. 8. Automated visual field testing performed 09/30/2012 documenting absence of any evidence of reduced sensitivity or visual field constriction. POSTOPERATIVE DIAGNOSIS: 1. Strabismus: Decompensated exotropia, pseudo-divergence excess type. 2. Asperger syndrome with developmental delay. 3. 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 4. 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 5. 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 6. Funduscopic examination without signs of optic neuropathy or retinal dystrophy. 7. Refractive error: Minimal astigmatism not warranting spectacle correction. 8. Automated visual field testing performed 09/30/2012 documenting absence of any evidence of reduced sensitivity or visual field constriction. OPERATIVE PROCEDURE: 1. Examination under anesthesia OU with biomicroscopy and funduscopy. 2. Extended ophthalmoscopy OU. 3. Forced ductions OU. 4. Recession of the lateral rectus muscle, right and left eye, 5.5 millimeters, through inferotemporal fornix incisions. ANESTHESIA: GENERAL BY LARYNGEAL MASK AIRWAY SUPPLEMENTED BY SUB-TENON'S INFUSION OF BUPIVACAINE. PROCEDURE: Informed consent was obtained from the parents by explaining the risks and benefits of the procedure and possible alternative treatments. They said that they understood the risks, including the risk of visual loss, retinal detachment, infection, hemorrhage, broken suture or slipped-lost muscle, ugly scarring, permanent double vision, and even the possible need for immediate or delayed additional surgery, and they wished to proceed. The patient was taken to the operating room, where anesthesia was administered by mask, inducing somnolence. Physiologic monitors were applied, an IV line was inserted, and an airway was placed and taped in position. Phenylephrine and Voltaren eye drops were instilled on the conjunctivae. Biomicroscopic examination of the anterior segment revealed normal conjunctiva, clear corneas, deep and clear anterior chambers, normal iris architecture, clear lenses, and a clear anterior vitreous cavity OU. Corneal diameters were symmetrical and normal for age. Gonioscopy showed grade 3 angles 360 degrees OU. Fundus examination using scleral depression and the indirect ophthalmoscope revealed OD: a normal clear vitreous cavity; a healthy pink optic disc of normal diameter; a cup-to-disc ratio of less than 0.4; a rich nerve fiber layer; normal foveal architecture and vascular arcades; and normal peripheral retina without evidence of hemorrhage, retinal break, or subretinal fluid. Fundus examination OS also revealed: a normal clear vitreous cavity; a healthy pink optic disc of normal diameter; a cup-to-disc ratio of less than 0.4; a rich nerve fiber layer, normal foveal architecture and vascular arcades; and normal peripheral retina without evidence of hemorrhage, retinal break, or subretinal fluid. Both eyes were then prepared and draped in the fashion for eye surgery. A lid speculum was inserted. Forced ductions were performed OU using Bello forceps and were found to be normal OU. The right eye was rotated so as to expose the inferotemporal forniceal conjunctiva, and a 6.0 mm circumferential fornix incision was made with the -Ash forceps and blunt Mary scissors. Bare sclera was exposed in the quadrant and the Trejo hook and Green hooks were introduced in standard Park's fashion, isolating the lateral rectus to its full width. The intermuscular septum and Tenon's over the toe of the hook and the Tenon's immediately adjacent to the muscle were incised to expose the tendinous insertion. A double-armed 6-0 Vicryl on an S-29 needle was then passed 1.0 mm posterior to the insertion through the thickness of the muscle with lock bites to either side. The muscle was trimmed from the globe using Glenroy-Aebli scissors, cautery was applied to episcleral bleeders, and the globe was secured with locking Castroviejo forceps. The sutures were then passed through scleral tunnels, in crossed-swords fashion, 5.5 mm posterior to the insertion as measured by a caliper. The knots were secured and trimmed and the position of the muscle was verified. The conjunctival incision was closed with two interrupted sutures of 7-0 Vicryl. The left eye was rotated so as to expose the inferotemporal forniceal conjunctiva, and a 6.0 mm circumferential fornix incision was made with the Johnson-Oologah forceps and blunt Mary scissors. Bare sclera was exposed in the quadrant and the Trejo hook and Green hooks were introduced in standard Park's fashion, isolating the lateral rectus to its full width. The intermuscular septum and Tenon's over the toe of the hook and the Tenon's immediately adjacent to the muscle were incised to expose the tendinous insertion. A double-armed 6-0 Vicryl on an S-29 needle was then passed 1.0 mm posterior to the insertion through the thickness of the muscle with lock bites to either side. The muscle was trimmed from the globe using Piqua-Aebli scissors, cautery was applied to episcleral bleeders, and the globe was secured with locking Castroviejo forceps. The sutures were then passed through scleral tunnels, in crossed-swords fashion, 5.5 mm posterior to the insertion as measured by a caliper. The knots were secured and trimmed and the position of the muscle was verified. The conjunctival incision was closed with two interrupted sutures of 7-0 Vicryl. Maxitrol ointment was applied to the eyes. The patient awoke, was extubated, and was rolled to the recovery room in good condition. Immediately after the procedure, I spoke to the parents. They have been counseled to watch for signs of postoperative infection or slipped muscle. Should such signs appear, they are to call immediately; otherwise, they are to apply the ointment q.h.s. and [facility] one week. 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
--- OUTSIDE RECORDS SUMMARY | 2024-11-14 19:19 | XMS_ITS | Encounter Summary ---
Author Organization [facility] Facility Care Team Providers Care Oil Pipe Inspector Helper Name Role Phone Unavailable Primary Care Provider Unavailabl e Encounter Details Date Type Department Care Team (Latest Contact Info) Description 10/16/2011 12:01 AM [place] MACHINE OPERATOR - 11/10/2011 6:49 AM [place] MACHINE OPERATOR Hospital Encounter [facility] CLINCONV Other specified pervasive developmental disorders Social History Tobacco Use Types Packs/Day Years Used Date Smoking Tobacco: Never Assessed Comments Unknown Sex and Gender Information Value Date Recorded Sex Assigned at Not on file Legal Sex Female 12:45 AM [place] MACHINE OPERATOR Gender Identity Not on file Sexual Orientation Not on file documented as of this encounter Plan of Treatment Not on file documented as of this encounter Visit Diagnoses Diagnosis Other specified pervasive developmental disorders documented in this encounter
--- OUTSIDE RECORDS SUMMARY | 2024-11-14 19:19 | XMS_ITS | Encounter Summary ---
Author Organization [facility] Facility Care Team Providers Care Set Up Mechanic Coating Machines Name Role Phone Unavailable Primary Care Provider Unavailabl e Encounter Details Date Type Department Care Team (Latest Contact Info) Description 12/26/2010 4:30 PM BREAKER ENGINEER - 12/26/2010 11:59 PM BREAKER ENGINEER Hospital Encounter [facility] Katie Toribio MD [address] [place] [address] Dermatitis due to food taken internally Social History Tobacco Use Types Packs/Day Years Used Date Smoking Tobacco: Never Assessed Comments Unknown Sex and Gender Information Value Date Recorded Sex Assigned at Not on file Legal Sex Female 12:45 AM BREAKER ENGINEER Gender Identity Not on file Sexual Orientation Not on file documented as of this encounter Plan of Treatment Not on file documented as of this encounter Visit Diagnoses Diagnosis Dermatitis due to food taken internally documented in this encounter
--- OUTSIDE RECORDS SUMMARY | 2024-11-14 19:19 | XMS_ITS | Encounter Summary ---
Author Organization [facility] Facility Care Team Providers Care Oiling Machine Operator Name Role Phone Unavailable Primary Care Provider Unavailabl e Encounter Details Date Type Department Care Team (Latest Contact Info) Description 08/21/2011 10:29 AM CDT - 09/10/2011 10:43 AM CDT Hospital Encounter [facility] CLINCONV Other specified pervasive developmental disorders Social History Tobacco Use Types Packs/Day Years Used Date Smoking Tobacco: Never Assessed Comments Unknown Sex and Gender Information Value Date Recorded Sex Assigned at Not on file Legal Sex Female 12:45 AM FERRY CAPTAIN Gender Identity Not on file Sexual Orientation Not on file documented as of this encounter Plan of Treatment Not on file documented as of this encounter Visit Diagnoses Diagnosis Other specified pervasive developmental disorders documented in this encounter
--- OUTSIDE RECORDS SUMMARY | 2024-11-14 19:19 | XMS_ITS | Encounter Summary ---
Author Organization [facility] Facility Care Team Providers Care Venetian Blind Tape Cutter Name Role Phone Unavailable Primary Care Provider Unavailabl e Encounter Details Date Type Department Care Team (Latest Contact Info) Description 02/13/2011 3:42 PM CDT - 03/10/2011 11:54 AM CDT Hospital Encounter [facility] CLINCONV Other specified pervasive developmental disorders Social History Tobacco Use Types Packs/Day Years Used Date Smoking Tobacco: Never Assessed Comments Unknown Sex and Gender Information Value Date Recorded Sex Assigned at Not on file Legal Sex Female 12:45 AM CORPORATE TRUST OFFICER Gender Identity Not on file Sexual Orientation Not on file documented as of this encounter Plan of Treatment Not on file documented as of this encounter Visit Diagnoses Diagnosis Other specified pervasive developmental disorders documented in this encounter
--- OUTSIDE RECORDS SUMMARY | 2024-11-14 19:19 | XMS_ITS | Encounter Summary ---
Author Organization [facility] Facility Care Team Providers Care Toolmaker Grade Three Name Role Phone Unavailable Primary Care Provider Unavailabl e Encounter Details Date Type Department Care Team (Latest Contact Info) Description 05/20/2012 4:33 PM CDT - 06/10/2012 Hospital Encounter [facility] CLINCONV Active autistic disorder Social History Tobacco Use Types Packs/Day Years Used Date Smoking Tobacco: Never Assessed Comments Unknown Sex and Gender Information Value Date Recorded Sex Assigned at Not on file Legal Sex Female 12:45 AM PLASTICATOR Gender Identity Not on file Sexual Orientation Not on file documented as of this encounter Plan of Treatment Not on file documented as of this encounter Visit Diagnoses Diagnosis Active autistic disorder Autistic disorder, current or active state documented in this encounter
--- OUTSIDE RECORDS SUMMARY | 2024-11-14 19:19 | XMS_ITS | Encounter Summary ---
Author Organization [facility] Facility Care Team Providers Care Devulcanizer Charger Name Role Phone Unavailable Primary Care Provider Unavailabl e Encounter Details Date Type Department Care Team (Latest Contact Info) Description 01/13/2013 4:07 PM BARREL RIBS SOLDERER - 02/08/2013 9:11 AM CDT Hospital Encounter [facility] CLINCON[facility] Active autistic disorder Social History Tobacco Use Types Packs/Day Years Used Date Smoking Tobacco: Never Assessed Comments Unknown Sex and Gender Information Value Date Recorded Sex Assigned at Not on file Legal Sex Female 12:45 AM BARREL RIBS SOLDERER Gender Identity Not on file Sexual Orientation Not on file documented as of this encounter Plan of Treatment Not on file documented as of this encounter Visit Diagnoses Diagnosis Active autistic disorder Autistic disorder, current or active state documented in this encounter
--- OUTSIDE RECORDS SUMMARY | 2024-11-14 19:19 | XMS_ITS | Encounter Summary ---
Author Organization [facility] Facility Care Team Providers Care Support Services Specialist Name Role Phone Unavailable Primary Care Provider Unavailabl e Encounter Details Date Type Department Care Team (Latest Contact Info) Description 02/03/2013 8:58 AM CDT - 02/03/2013 11:59 PM CDT Hospital Encounter [facility] CLINCONV Central hearing loss Social History Tobacco Use Types Packs/Day Years Used Date Smoking Tobacco: Never Assessed Comments Unknown Sex and Gender Information Value Date Recorded Sex Assigned at Not on file Legal Sex Female 12:45 AM ANALYSIS OR RESEARCH SAFETY INSPECTOR Gender Identity Not on file Sexual Orientation Not on file documented as of this encounter Plan of Treatment Not on file documented as of this encounter Procedures Procedure Name Priority Date/Time Associated Diagnosis Comments AUDIOGRAM 02/03/2013 documented in this encounter Results * AUDIOGRAM (02/03/2013) Narrative 02/03/2013 Ordered by an unspecified provider. Historical Provider AUDIOLOGY SERVICES ORDERA BLES Final Result documented in this encounter Visit Diagnoses Diagnosis Central hearing loss documented in this encounter
--- OUTSIDE RECORDS SUMMARY | 2024-11-14 19:19 | XMS_ITS | Encounter Summary ---
Author Organization [facility] Facility Care Team Providers Care Rn Traveling Name Role Phone Unavailable Primary Care Provider Unavailabl e Encounter Details Date Type Department Care Team (Latest Contact Info) Description 02/12/2012 4:03 PM CDT - 03/10/2012 10:18 AM CDT Hospital Encounter [facility] CLINCON[facility] Other specified pervasive developmental disorders Social History Tobacco Use Types Packs/Day Years Used Date Smoking Tobacco: Never Assessed Comments Unknown Sex and Gender Information Value Date Recorded Sex Assigned at Not on file Legal Sex Female 12:45 AM STATISTICAL ENGINEER Gender Identity Not on file Sexual Orientation Not on file documented as of this encounter Plan of Treatment Not on file documented as of this encounter Visit Diagnoses Diagnosis Other specified pervasive developmental disorders documented in this encounter
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
--- OUTSIDE RECORDS SUMMARY | 2024-11-14 19:19 | XMS_ITS | Encounter Summary ---
Author Organization [facility] Facility Care Team Providers Care Press Loader Name Role Phone Unavailable Primary Care Provider Unavailabl e Encounter Details Date Type Department Care Team (Latest Contact Info) Description 12/25/2011 11:03 AM LOGGING CREW SUPERVISOR - 01/09/2012 Hospital Encounter [facility] CLINCON[facility] Other specified pervasive developmental disorders Social History Tobacco Use Types Packs/Day Years Used Date Smoking Tobacco: Never Assessed Comments Unknown Sex and Gender Information Value Date Recorded Sex Assigned at Not on file Legal Sex Female 12:45 AM LOGGING CREW SUPERVISOR Gender Identity Not on file Sexual Orientation Not on file documented as of this encounter Plan of Treatment Not on file documented as of this encounter Visit Diagnoses Diagnosis Other specified pervasive developmental disorders documented in this encounter
--- OUTSIDE RECORDS SUMMARY | 2024-11-14 19:19 | XMS_ITS | Encounter Summary ---
Author Organization [facility] Facility Care Team Providers Care Facility Practice Specialist Name Role Phone Unavailable Primary Care Provider Unavailabl e Encounter Details Date Type Department Care Team (Latest Contact Info) Description 04/11/2012 12:01 AM CDT - 05/10/2012 11:55 AM CDT Hospital Encounter [facility] CLINCON[facility] Other specified pervasive developmental disorders Social History Tobacco Use Types Packs/Day Years Used Date Smoking Tobacco: Never Assessed Comments Unknown Sex and Gender Information Value Date Recorded Sex Assigned at Not on file Legal Sex Female 12:45 AM DRAMATIC DIRECTOR Gender Identity Not on file Sexual Orientation Not on file documented as of this encounter Plan of Treatment Not on file documented as of this encounter Visit Diagnoses Diagnosis Other specified pervasive developmental disorders documented in this encounter
--- OUTSIDE RECORDS SUMMARY | 2024-11-14 19:19 | XMS_ITS | Encounter Summary ---
Author Organization [facility] Facility Care Team Providers Care Meat Stocker Name Role Phone Unavailable Primary Care Provider Unavailabl e Encounter Details Date Type Department Care Team (Latest Contact Info) Description 02/10/2013 12:01 AM CDT - 03/10/2013 9:51 AM CDT Hospital Encounter [facility] CLINCONV Active autistic disorder Social History Tobacco Use Types Packs/Day Years Used Date Smoking Tobacco: Never Assessed Comments Unknown Sex and Gender Information Value Date Recorded Sex Assigned at Not on file Legal Sex Female 12:45 AM WIGS SALESPERSON Gender Identity Not on file Sexual Orientation Not on file documented as of this encounter Plan of Treatment Not on file documented as of this encounter Visit Diagnoses Diagnosis Active autistic disorder Autistic disorder, current or active state documented in this encounter
--- OUTSIDE RECORDS SUMMARY | 2024-11-14 19:19 | XMS_ITS | Encounter Summary ---
Author Organization [facility] Facility Care Team Providers Care Health Associate Name Role Phone Unavailable Primary Care Provider Unavailabl e Encounter Details Date Type Department Care Team (Latest Contact Info) Description 10/27/2013 3:00 AM SANITATION WORKER - 11/10/2013 6:00 AM SANITATION WORKER Hospital Encounter [facility] CLINCONV Active autistic disorder Social History Tobacco Use Types Packs/Day Years Used Date Smoking Tobacco: Never Assessed Comments Unknown Sex and Gender Information Value Date Recorded Sex Assigned at Not on file Legal Sex Female 12:45 AM SANITATION WORKER Gender Identity Not on file Sexual Orientation Not on file documented as of this encounter Plan of Treatment Not on file documented as of this encounter Visit Diagnoses Diagnosis Active autistic disorder Autistic disorder, current or active state documented in this encounter
--- OUTSIDE RECORDS SUMMARY | 2024-11-14 19:19 | XMS_ITS | Encounter Summary ---
Author Organization [facility] Facility Care Team Providers Care Change Management Analyst Name Role Phone Unavailable Primary Care Provider Unavailabl e Encounter Details Date Type Department Care Team (Late st Contact Info) Description 05/01/2011 5:34 PM CDT - 05/01/2011 11:59 PM CDT Hospital Encounter [facility] CLINCONV Rico Miller MD [address] [facility] [address] [place] [address] Lack of expected normal physiological development; Generalized muscle weakness Social History Tobacco Use Types Packs/Day Years Used Date Smoking Tobacco: Never Assessed Comments Unknown Sex and Gender Information Value Date Recorded Sex Assigned at Not on file Legal Sex Female 12:45 AM SALES PROFESSIONAL BILINGUAL Gender Identity Not on file Sexual Orientation Not on file documented as of this encounter Plan of Treatment Not on file documented as of this encounter Visit Diagnoses Diagnosis Lack of expected normal physiological development Lack of normal physiological development, unspecified Generalized muscle weakness Muscle weakness (generalized) documented in this encounter
--- OUTSIDE RECORDS SUMMARY | 2024-11-14 19:19 | XMS_ITS | Encounter Summary ---
Author Organization [facility] Facility Care Team Providers Care Clinical Trial Head Name Role Phone Unavailable Primary Care Provider Unavailabl e Encounter Details Date Type Department Care Team (Latest Contact Info) Description 03/11/2012 12:01 AM CDT - 04/10/2012 11:23 AM CDT Hospital Encounter [facility] CLINCON[facility] Other specified pervasive developmental disorders Social History Tobacco Use Types Packs/Day Years Used Date Smoking Tobacco: Never Assessed Comments Unknown Sex and Gender Information Value Date Recorded Sex Assigned at Not on file Legal Sex Female 12:45 AM UNDERWRITING INTERN Gender Identity Not on file Sexual Orientation Not on file documented as of this encounter Plan of Treatment Not on file documented as of this encounter Visit Diagnoses Diagnosis Other specified pervasive developmental disorders documented in this encounter
--- OUTSIDE RECORDS SUMMARY | 2024-11-14 19:19 | XMS_ITS | Encounter Summary ---
Author Organization [facility] Facility Care Team Providers Care Drawing In Machine Tender Helper Name Role Phone Unavailable Primary Care Provider Unavailabl e Encounter Details Date Type Department Care Team (Latest Contact Info) Description 08/18/2013 12:01 AM CDT - 09/10/2013 12:16 PM CDT Hospital Encounter [facility] CLINCONV Active autistic disorder Social History Tobacco Use Types Packs/Day Years Used Date Smoking Tobacco: Never Assessed Comments Unknown Sex and Gender Information Value Date Recorded Sex Assigned at Not on file Legal Sex Female 12:45 AM CLINICAL DENTAL TECHNICIAN Gender Identity Not on file Sexual Orientation Not on file documented as of this encounter Plan of Treatment Not on file documented as of this encounter Visit Diagnoses Diagnosis Active autistic disorder Autistic disorder, current or active state documented in this encounter
--- OUTSIDE RECORDS SUMMARY | 2024-11-14 19:19 | XMS_ITS | Encounter Summary ---
Author Organization [facility] Facility Care Team Providers Care Recreation Technician Name Role Phone Unavailable Primary Care Provider Unavailabl e Encounter Details Date Type Department Care Team (Latest Contact Info) Description 09/16/2012 1:51 PM [employer] ADVISOR - 10/10/2012 9:37 AM [employer] ADVISOR Hospital Encounter [facility] CLINCONV Active autistic disorder Social History Tobacco Use Types Packs/Day Years Used Date Smoking Tobacco: Never Assessed Comments Unknown Sex and Gender Information Value Date Recorded Sex Assigned at Not on file Legal Sex Female 12:45 AM [employer] ADVISOR Gender Identity Not on file Sexual Orientation Not on file documented as of this encounter Plan of Treatment Not on file documented as of this encounter Visit Diagnoses Diagnosis Active autistic disorder Autistic disorder, current or active state documented in this encounter
--- OUTSIDE RECORDS SUMMARY | 2024-11-14 19:19 | XMS_ITS | Encounter Summary ---
Author Organization [facility] Facility Care Team Providers Care Technical Marketing Consultant Name Role Phone Unavailable Primary Care Provider Unavailabl e Encounter Details Date Type Department Care Team (Latest Contact Info) Description 12/16/2012 12:01 AM GOLD CHARMER - 01/08/2013 9:17 AM GOLD CHARMER Hospital Encounter [facility] CLINCONV Active autistic disorder Social History Tobacco Use Types Packs/Day Years Used Date Smoking Tobacco: Never Assessed Comments Unknown Sex and Gender Information Value Date Recorded Sex Assigned at Not on file Legal Sex Female 12:45 AM GOLD CHARMER Gender Identity Not on file Sexual Orientation Not on file documented as of this encounter Plan of Treatment Not on file documented as of this encounter Visit Diagnoses Diagnosis Active autistic disorder Autistic disorder, current or active state documented in this encounter
--- OUTSIDE RECORDS SUMMARY | 2024-11-14 19:19 | XMS_ITS | Encounter Summary ---
Author Organization [facility] Facility Care Team Providers Care Ward Assistant Name Role Phone Unavailable Primary Care Provider Unavailabl e Encounter Details Date Type Department Care Team (Late st Contact Info) Description 04/12/2011 9:20 AM CDT - 04/12/2011 4:00 PM CDT Hospital Encounter [facility] CLINCONPaolo Holland, Vargas Manley MD [address] [address] Generalized pain; Closed fracture of metatarsal bone Social History Tobacco Use Types Packs/Day Years Used Date Smoking Tobacco: Never Assessed Comments Unknown Sex and Gender Information Value Date Recorded Sex Assigned at Not on file Legal Sex Female 12:45 AM OPTOELECTRONIC TECHNICIAN Gender Identity Not on file Sexual Orientation Not on file documented as of this encounter Plan of Treatment Not on file documented as of this encounter Visit Diagnoses Diagnosis Generalized pain Closed fracture of metatarsal bone Closed fracture of metatarsal bone(s) documented in this encounter
--- OUTSIDE RECORDS SUMMARY | 2024-11-14 19:19 | XMS_ITS | Encounter Summary ---
Author Organization [facility] Facility Care Team Providers Care Account Clerk Name Role Phone Unavailable Primary Care Provider Unavailabl e Encounter Details Date Type Department Care Team (Latest Contact Info) Description 04/12/2011 11:51 AM CDT - 05/10/2011 1:55 PM CDT Hospital Encounter [facility] CLINCONV Other specified pervasive developmental disorders Social History Tobacco Use Types Packs/Day Years Used Date Smoking Tobacco: Never Assessed Comments Unknown Sex and Gender Information Value Date Recorded Sex Assigned at Not on file Legal Sex Female 12:45 AM STATION GATEMAN Gender Identity Not on file Sexual Orientation Not on file documented as of this encounter Plan of Treatment Not on file documented as of this encounter Visit Diagnoses Diagnosis Other specified pervasive developmental disorders documented in this encounter
--- OUTSIDE RECORDS SUMMARY | 2024-11-14 19:19 | XMS_ITS | Encounter Summary ---
Author Organization [facility] Facility Care Team Providers Care Electric Motor And Generator Assembler Name Role Phone Unavailable Primary Care Provider Unavailabl e Encounter Details Date Type Department Care Team (Latest Contact Info) Description 05/15/2011 4:45 PM CDT - 06/10/2011 1:00 AM CDT [facility] Other specified pervasive developmental disorders; Other developmental disorder of speech or language Social History Tobacco Use Types Packs/Day Years Used Date Smoking Tobacco: Never Assessed Comments Unknown Sex and Gender Information Value Date Recorded Sex Assigned at Not on file Legal Sex Female 12:45 AM SENIOR ACCOUNT DIRECTOR Gender Identity Not on file Sexual Orientation Not on file documented as of this encounter Plan of Treatment Not on file documented as of this encounter Visit Diagnoses Diagnosis 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
--- OUTSIDE RECORDS SUMMARY | 2024-11-14 19:19 | XMS_ITS | Encounter Summary ---
Author Organization [facility] Facility Care Team Providers Care Orthodontist Name Role Phone Unavailable Primary Care Provider Unavailabl e Encounter Details Date Type Department Care Team (Latest Contact Info) Description 01/22/2012 10:43 AM CDT - 02/09/2012 9:54 AM CDT Hospital Encounter [facility] CLINCONV Other specified pervasive developmental disorders Social History Tobacco Use Types Packs/Day Years Used Date Smoking Tobacco: Never Assessed Comments Unknown Sex and Gender Information Value Date Recorded Sex Assigned at Not on file Legal Sex Female 12:45 AM ACCOUNT STRATEGIST Gender Identity Not on file Sexual Orientation Not on file documented as of this encounter Plan of Treatment Not on file documented as of this encounter Visit Diagnoses Diagnosis Other specified pervasive developmental disorders documented in this encounter
--- OUTSIDE RECORDS SUMMARY | 2024-11-14 19:19 | XMS_ITS | Encounter Summary ---
Author Organization [facility] Facility Care Team Providers Care Geodetic Surveyor Name Role Phone Unavailable Primary Care Provider Unavailabl e Encounter Details Date Type Department Care Team (Latest Contact Info) Description 09/05/2010 3:05 PM CDT - 09/05/2010 11:59 PM CDT Hospital Encounter [facility] CLINCONV Abdominal pain, periumbilical Social History Tobacco Use Types Packs/Day Years Used Date Smoking Tobacco: Never Assessed Comments Unknown Sex and Gender Information Value Date Recorded Sex Assigned at Not on file Legal Sex Female 12:45 AM CUSTOMER SUPPORT ASSISTANT Gender Identity Not on file Sexual Orientation Not on file documented as of this encounter Plan of Treatment Not on file documented as of this encounter Visit Diagnoses Diagnosis Abdominal pain, periumbilical Abdominal pain, periumbilic documented in this encounter
--- OUTSIDE RECORDS SUMMARY | 2024-11-14 19:19 | XMS_ITS | Encounter Summary ---
Author Organization [facility] Facility Care Team Providers Care Anesthesiology Fellow Name Role Phone Unavailable Primary Care Provider Unavailabl e Encounter Details Date Type Department Care Team (Latest Contact Info) Description 11/13/2011 4:01 PM SUBSTANCE ABUSE SERVICES DIRECTOR - 12/11/2011 10:28 AM SUBSTANCE ABUSE SERVICES DIRECTOR Hospital Encounter [facility] CLINCONV Other specified pervasive developmental disorders Social History Tobacco Use Types Packs/Day Years Used Date Smoking Tobacco: Never Assessed Comments Unknown Sex and Gender Information Value Date Recorded Sex Assigned at Not on file Legal Sex Female 12:45 AM SUBSTANCE ABUSE SERVICES DIRECTOR Gender Identity Not on file Sexual Orientation Not on file documented as of this encounter Plan of Treatment Not on file documented as of this encounter Visit Diagnoses Diagnosis Other specified pervasive developmental disorders documented in this encounter
--- OUTSIDE RECORDS SUMMARY | 2024-11-14 19:19 | XMS_ITS | Encounter Summary ---
Author Organization [facility] Facility Care Team Providers Care Charge Poster Name Role Phone Unavailable Primary Care Provider Unavailabl e Encounter Details Date Type Department Care Team (Latest Contact Info) Description 09/29/2013 - 10/10/2013 11:17 AM RUG CLIPPER Hospital Encounter [facility] CLINCONV Active autistic disorder Social History Tobacco Use Types Packs/Day Years Used Date Smoking Tobacco: Never Assessed Comments Unknown Sex and Gender Information Value Date Recorded Sex Assigned at Not on file Legal Sex Female 12:45 AM RUG CLIPPER Gender Identity Not on file Sexual Orientation Not on file documented as of this encounter Plan of Treatment Not on file documented as of this encounter Visit Diagnoses Diagnosis Active autistic disorder Autistic disorder, current or active state documented in this encounter
--- OUTSIDE RECORDS SUMMARY | 2024-11-14 19:19 | XMS_ITS | Encounter Summary ---
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
--- OUTSIDE RECORDS SUMMARY | 2024-11-14 19:19 | XMS_ITS | Encounter Summary ---
Author Organization [facility] Facility Care Team Providers Care Boat Buffer Plastic Name Role Phone Unavailable Primary Care Provider Unavailabl e Encounter Details Date Type Department Care Team (Latest Contact Info) Description 12/01/2013 12:01 AM MULTIMEDIA MANAGER - 12/11/2013 1:24 PM MULTIMEDIA MANAGER Hospital Encounter [facility] CLINCONV Active autistic disorder Social History Tobacco Use Types Packs/Day Years Used Date Smoking Tobacco: Never Assessed Comments Unknown Sex and Gender Information Value Date Recorded Sex Assigned at Not on file Legal Sex Female 12:45 AM MULTIMEDIA MANAGER Gender Identity Not on file Sexual Orientation Not on file documented as of this encounter Plan of Treatment Not on file documented as of this encounter Visit Diagnoses Diagnosis Active autistic disorder Autistic disorder, current or active state documented in this encounter
--- OUTSIDE RECORDS SUMMARY | 2024-11-14 19:19 | XMS_ITS | Encounter Summary ---
Author Organization [facility] Facility Care Team Providers Care Automation Lead Name Role Phone Unavailable Primary Care Provider Unavailabl e Encounter Details Date Type Department Care Team (Latest Contact Info) Description 09/18/2011 4:06 PM GRAIN SPOUTER - 10/10/2011 10:50 AM GRAIN SPOUTER Hospital Encounter [facility] CLINCONV Other specified pervasive developmental disorders Social History Tobacco Use Types Packs/Day Years Used Date Smoking Tobacco: Never Assessed Comments Unknown Sex and Gender Information Value Date Recorded Sex Assigned at Not on file Legal Sex Female 12:45 AM GRAIN SPOUTER Gender Identity Not on file Sexual Orientation Not on file documented as of this encounter Plan of Treatment Not on file documented as of this encounter Visit Diagnoses Diagnosis Other specified pervasive developmental disorders documented in this encounter
--- OUTSIDE RECORDS SUMMARY | 2024-11-14 19:19 | XMS_ITS | Encounter Summary ---
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
--- OUTSIDE RECORDS SUMMARY | 2024-11-14 19:19 | XMS_ITS | Encounter Summary ---
Author Organization [facility] Facility Care Team Providers Care Manual Qa Tester Name Role Phone Unavailable Primary Care Provider Unavailabl e Encounter Details Date Type Department Care Team (Latest Contact Info) Description 02/26/2011 12:12 AM CDT - 02/27/2011 10:20 AM CDT Hospital Encounter [facility] Katie Toribio MD [address] [place] [address] Dehydration; Intestinal infection, enteritis due to rotavirus; Other specified pervasive developmental disorders; Attention deficit disorder; Family history of asthma; Family history of diabetes mellitus Social History Tobacco Use Types Packs/Day Years Used Date Smoking Tobacco: Never Assessed Comments Unknown Sex and Gender Information Value Date Recorded Sex Assigned at Not on file Legal Sex Female 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 Gender Identity Not on file Sexual Orientation Not on file documented as of this encounter Last Filed Vital Signs Vital Sign Reading Time Taken Comments Blood Pressure 100/64 02/27/2011 9:20 AM CDT Pulse 80 02/27/2011 9:20 AM CDT Temperature - - Respiratory Rate - - Oxygen Saturation 100% 02/27/2011 9:20 AM CDT Inhaled Oxygen Concentration - - Weight 32.3 kg (71 lb 3.3 oz) 02/26/2011 4:15 AM CDT Height 134 cm (4' 4.76 ) 02/26/2011 4:15 AM CDT Body Mass Index 17.99 02/26/2011 4:15 AM CDT Body Mass Index Percentile 65.78% 02/26/2011 4:1 5 AM CDT Growth Chart: CDC (Girls, 2- 20 Years) documented in this encounter Plan of Treatment Not on file documented as of this encounter Visit Diagnoses Diagnosis Dehydration Intestinal infection, enteritis due to rotavirus Other specified pervasive developmental disorders Attention deficit disorder Attention deficit disorder without mention of hyperactivity Family history of asthma Family history of diabetes mellitus documented in this encounter
--- OUTSIDE RECORDS SUMMARY | 2024-11-14 19:19 | XMS_ITS | Encounter Summary ---
Author Organization [facility] Facility Care Team Providers Care Maintenance Instructor Name Role Phone Unavailable Primary Care Provider Unavailabl e Encounter Details Date Type Department Care Team (Latest Contact Info) Description 10/30/2011 5:10 PM TRANSPORTATION SUPERVISOR - 10/30/2011 11:59 PM TRANSPORTATION SUPERVISOR Hospital Encounter [facility] Katie Toribio MD [address] [place] [address] Elevation of level of transaminase and lactic acid dehydrogenase (LDH) Social History Tobacco Use Types Packs/Day Years Used Date Smoking Tobacco: Never Assessed Comments Unknown Sex and Gender Information Value Date Recorded Sex Assigned at Not on file Legal Sex Female 12:45 AM TRANSPORTATION SUPERVISOR Gender Identity Not on file Sexual Orientation Not on file documented as of this encounter Plan of Treatment Not on file documented as of this encounter Visit Diagnoses Diagnosis Elevation of level of transaminase and lactic acid dehydrogenase (LDH) documented in this encounter
--- OUTSIDE RECORDS SUMMARY | 2024-11-14 19:19 | XMS_ITS | Encounter Summary ---
Author Organization [facility] Facility Care Team Providers Care Counsellors Name Role Phone Unavailable Primary Care Provider Unavailabl e Encounter Details Date Type Department Care Team (Latest Contact Info) Description 03/24/2013 11:31 AM CDT - 04/10/2013 10:59 AM CDT Hospital Encounter [facility] CLINCONV Active autistic disorder Social History Tobacco Use Types Packs/Day Years Used Date Smoking Tobacco: Never Assessed Comments Unknown Sex and Gender Information Value Date Recorded Sex Assigned at Not on file Legal Sex Female 12:45 AM KILN OPERATOR HELPER Gender Identity Not on file Sexual Orientation Not on file documented as of this encounter Plan of Treatment Not on file documented as of this encounter Visit Diagnoses Diagnosis Active autistic disorder Autistic disorder, current or active state documented in this encounter
--- OUTSIDE RECORDS SUMMARY | 2024-11-14 19:19 | XMS_ITS | Encounter Summary ---
Author Organization [facility] Facility Care Team Providers Care Clearing Distribution Clerk Name Role Phone Unavailable Primary Care Provider Unavailabl e Encounter Details Date Type Department Care Team (Latest Contact Info) Description 11/25/2012 3:06 PM POWER SCREWDRIVER OPERATOR - 12/11/2012 2:54 PM POWER SCREWDRIVER OPERATOR Hospital Encounter [facility] CLINCONV Active autistic disorder Social History Tobacco Use Types Packs/Day Years Used Date Smoking Tobacco: Never Assessed Comments Unknown Sex and Gender Information Value Date Recorded Sex Assigned at Not on file Legal Sex Female 12:45 AM POWER SCREWDRIVER OPERATOR Gender Identity Not on file Sexual Orientation Not on file documented as of this encounter Plan of Treatment Not on file documented as of this encounter Procedures Procedure Name Priority Date/Time Associated Diagnosis Comments THERAPY NOTE Routine 11/25/2012 12:00 AM POWER SCREWDRIVER OPERATOR documented in this encounter Results * Therapy Note (11/25/2012 12:00 AM POWER SCREWDRIVER OPERATOR) 11/25/2012 Narrative HISTORICAL RESULTS - 12/09/2012 9:08 AM POWER SCREWDRIVER OPERATOR ? [facility] ? THERAPY SERVICES NAME: ANGELA KIRKLAND ? RECORD NUMBER: [id number] DATE OF SERVICE: ?11/25/2012 DATE OF : ?2000 ?SPEECH-LANGUAGE EVALUATION Date of Service: ??11/25/2012 Parent Concerns relevant to this evaluation: At times her parents will tell her something ??but it seems as though she doesn't understand them or doesn't remember parts of what she was told, even though they believe she is trying her best. ??They want to be able to help her succeed and thus are looking for additional language testing which might give them more information on her skills and strategies to help. Background: Information was obtained via parent interview, electronic medical records and written reports. Angela demonstrated developmental delays as a young child. ??She displayed a significant sensory processing disorder, which resulted with frequent behavioral outbursts. ??An Occupational Therapy evaluation profile completed at [facility] on 01/30/2011 included an overresponsivitity to auditory information . She has received on-going occupational therapy for sensory matters. ??Parents stated that they have noticed significant improved behavior with Occupational Therapy intervention. ??Specifically, Angela is more aware of her sensory issues and is better able to cope with her problems. ??Her parents have been very involved. ??They have learned ?? how to approach her so not to trigger as much negative behavior. ??While learning better coping strategies, she has been weaned off of anxiety medication Celexa. 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 ??Most recent hearing screen on 10/01/2012 indicated hearing acuity WNL for 250 to 8000Hz bilaterally. ??Word recognition scores were normal. An Outpatient Speech and Language Evaluation was given at [facility] on 04/03/2011. At that time Pragmatic Language skills was the focus. ??Following that evaluation, it was recommended that Angela participate in social groups due to deficits specifically related to interpersonal skills with peers. ??See report for complete details of all tests given and results. ??Currently, this area of concern is being addressed with Social Skills Training for interpersonal communication through the special education department. Angela has an Asperger and ADHD Diagnosis. She is currently in the 6th grade in the [employer] in [place]. ?? School is progressively becoming more challenging. Parents provided IEP dated 11/20/2012 from [employer]. ??This report included previously set goals. Due to Angela's diagnosis of autism with a secondary eligibility of other health impaired additional accommodations were given. Goals listed: Angela will 1.Work on becoming more independent by recognizing that she can solve problems, explore her feelings regarding a stressful experience and accurately report what is happening at home and school. 2.Complete morning routines independently. 3.Prepare her backpack with all necessary supplies to complete homework. 4.Improve her ability to process sensory information in the classroom for greater independence on classroom work. Additional accommodations on IEP: -Encourage Angela to remove herself from the environment when she is frustrated. -Extending time to complete assignments (one extra day) -For assignments/school work that is going home, a check mustapha will be added to papers she needs to keep. -Angela will be allowed to use a keyboard at school for lengthy written assignments -An extra set of books provided to keep at home. -Provide a copy of notes/study guides to follow during lectures -School work graded for content, not neatness -Break large assignment in to smaller segment -Provide lined paper for written work -Allow sensory breaks when needed. -Provide a separate paper for written assignments to allow more space for writing. -Enlarge assignments when possible -Provide a smaller or alternative location for test taking upon Angela's request. -[place] book will be checked to insure all homework assignments are recorded. Parents also provided a written report dated 09/26/2012 ??from School District regarding results of Psychological Evaluation. ??The WISC-IV was given for this evaluation. ??Results indicated Angela's general cognitive ability to be in the Low Average range. ??Her verbal comprehension (87), perceptual reasoning abilities (86) and general processing speed abilities (85) measure in the Low Average range, while general working memory abilities measure in the High Average range ??(116) See report for complete details. Evaluation [Due to scheduling conflicts, ??Angela participated in 50 minutes of Language Testing, then 60 minutes of Occupational Therapy, followed by 30 additional minutes of Language Testing]. Behavior Angela was pleasant, engaging and cooperative during this evaluation, which was given in a minimally distracting environment. ??Her focused and sustained attention was adequate during the informal and formal evaluation, though active in-seat behavior was noted. ??She used her bracelet as a 'fidget', which was distracting at times, and needed to be removed. ??She frequently voiced concern regarding her performance (e.g. How did I do? ), which is consistent with parent report of test anxiety. ??Redirections were occasionally given because she would generate a random comment off topic . ??She responded well to these redirections. Articulation / Voice / Fluency All subjective judged to be within functional limits. Language The Clinical Evaluation Language Fundamentals ??(CELF-4) was administered to assess Angela's language ability. The results of testing were as follows: Subtests Given ?Scaled Score (7 to 13 average range) ?? Age Equivalent Concepts ?? Following Directions ? 5 8:11 Recalling Sentences ?10 11:2 Formulated Sentences ? 9 10:7 Word Classes - Receptive ? 4 7:9 Word Classes - Expressive ?6 8:9 Word Classes - Total ?5 7:7 To determine Angela's Core Language Score, the following subtests were considered: -Concepts and Following Directions. -Recalling Sentences -Formulating Sentences -Word Classes Total The Core Language Score is considered to be the most manufacturers representative measure of Angela's language skills and provides a reliable way to quantify her overall language performance. ??Angela's Core Language Score of 84 places her in 14th percentile rank. ??Her Expressive Language Index score was 91 / 27th percentile rank; conversely, her Receptive Language index score was 50 and less than 1 percentile rank. Discussion of Results:The Concepts and Following Directions ??subtest was used to evaluate Angela's ability to interpret spoken directions of increasing length and complexity. ??The test also required that Angela remember names and identifying characteristics in order of directions. ??This ability is required for following directions and recalling assigned tasks. ??Angela's score was 1and 1/2 standard deviations below the mean on this subtest. The Recalling Sentences ??subtest was used to evaluate Angela's ability to recall and reproduce sentences of varying length and syntactic complexity. ??In the classroom, this ability is required for following directions and academic instruction, note taking, and learning subject ??content. ??Children who perform well on this subtest show strengths in auditory memory and/or syntax. ??Because children are more likely to recall the syntactic structures that they themselves use, a performance in the average range indicates typically developing syntax. ??nAgela scored within normal limits on this subtest. The Formulated Sentences subtest was given to evaluate her ability to formulate compound and complex sentences when given grammatical constraints. ??In the classroom, this ability is emphasized in report writing, editing, and other literacy activities. ??Angela formed complete and generally grammatically appropriate sentences when instructed to use specific words. ?? Her score was within normal limits on this subtest. The Word Classes Total subset was used to evaluate Angela's ability to understand (receptive) and explain (expressive) logical relationships in the meanings of associated words. ??In the classroom, this ability is emphasized in activities of comparing and contrasting, the use of antonyms, and all other literacy activities in which Angela must employ knowledge and precise use of words to express meaning. ??Maryanas scored greater than 1 standard deviation below the mean ??on ??expressive ??and 2-standard deviations below the mean on the receptive portions of this subtest. Additional Subtests given: Angela's performance was within normal limits, indicative of working memory at chronological age level expectations. Number Repetition-Forward ? Scaled Score 13 Number Repetition-Backward ?Scaled Score 13 Familiar Sequences ?Scaled Score 12 Impressions and Recommendations On this date, Angela entered into this testing environment, somewhat reluctantly, but [id number] very pleasant and cooperative. She appeared to be very motivated, especially when this examiner explained that this testing was being done to help everyone understand how she learns best. Select portions of the CELF-4 were given with Recalling Sentences and Formulating Sentences. ??Scores on both were within normal limits.. ??In addition, working memory subtest scores were within normal limits. Greater difficulty was noted on the ??Concepts and Following Directions and Word Classes subtests. ??These scores were 1 and 1/2 to 2 standard deviations below the mean. ??Furthermore, her performance on these later subtests were not commensurate with the scores reported following her psychological evaluation. Results of this evaluation are consistent with ??her parents report that she has greater difficulty remembering multi-step / more complex information. Though Angela's performance at this evaluation would indicate a receptive-language learning problem, this examiner can not rule out an auditory processing disorder. It is also unclear to what extent the ADHD may be a contributing factor. ??Based on results of this evaluation, it is recommended that Angela participate in speech therapy at the school setting to address listening strategies for following multi-step directions and recalling information with increasing complexity. ??Specific goals are deferred to treating therapist. This examiner is mindful of Angela's test anxiety and the extensive testing she has had over the past few months. ??However, further testing to diagnose or rule out ??an auditory processing problem may provide Angela and her parents with valuable information which would benefit her now and in the future (e.g. more strategies or accommodations etc ). A referral to the [facility] Audiology department will be made for an Auditory Processing Disorder (APD) evaluation. ??Parent is aware and is in agreement with this referral. Both parents and school should continue with the strategies already implemented, which support more success in the classroom and at home, which include the sensory processing component. ?? Tutoring for specific adademic difficulties is strongly encourage. The audiolgoist and/or treating therapist, may offer suggestions; however, these are general recommendations given: 1.Gaining the individual's attention prior to talking to her 2.Having her as close as possible to the speaker; minimizing the distractions 3.When giving directions, give 1 or 2 at a time and have her repeat the directions 4.Pairing visual information (writing or pictures) along with auditory information may be helpful 5.Using a day facilities planner to ??organize daily schedule with space to write additional information as needed 6.Empowering the student to ask for clarification Please contact this therapist if you have any questions regarding this evaluation. Discharged from Therapy Services. Prognosis for improved language skills is good with intervention, continued parent support and patient compliance. Signed Teressa Montalvo MS,CCCSLP 12/09/2012 09:08 A Teressa Montalvo MS,CCCSLP JKL: A #[id number] A #[id number] us Historical Provider NURSING COMMUNICATION Fin al Result HISTORICAL RESULTS documented in this encounter Visit Diagnoses Diagnosis Active autistic disorder Autistic disorder, current or active state documented in this encounter
--- OUTSIDE RECORDS SUMMARY | 2024-11-14 19:19 | XMS_ITS | Encounter Summary ---
Author Organization [facility] Facility Care Team Providers Care Paint Spray Inspector Name Role Phone Unavailable Primary Care Provider Unavailabl e Encounter Details Date Type Department Care Team (Latest Contact Info) Description 07/13/2013 11:05 AM CDT - 08/10/2013 7:52 AM CDT Hospital Encounter [facility] CLINCONV Active autistic disorder Social History Tobacco Use Types Packs/Day Years Used Date Smoking Tobacco: Never Assessed Comments Unknown Sex and Gender Information Value Date Recorded Sex Assigned at Not on file Legal Sex Female 12:45 AM STICK PULLER Gender Identity Not on file Sexual Orientation Not on file documented as of this encounter Plan of Treatment Not on file documented as of this encounter Visit Diagnoses Diagnosis Active autistic disorder Autistic disorder, current or active state documented in this encounter
--- OUTSIDE RECORDS SUMMARY | 2024-11-14 19:19 | XMS_ITS | Encounter Summary ---
Author Organization [facility] Facility Care Team Providers Care Head Of Integrated Media Name Role Phone Unavailable Primary Care Provider Unavailabl e Encounter Details Date Type Department Care Team (Latest Contact Info) Description 07/17/2011 4:14 PM CDT - 08/10/2011 7:57 AM CDT Hospital Encounter [facility] CLINCONV Other specified pervasive developmental disorders Social History Tobacco Use Types Packs/Day Years Used Date Smoking Tobacco: Never Assessed Comments Unknown Sex and Gender Information Value Date Recorded Sex Assigned at Not on file Legal Sex Female 12:45 AM RETORT FURNACE HELPER Gender Identity Not on file Sexual Orientation Not on file documented as of this encounter Plan of Treatment Not on file documented as of this encounter Visit Diagnoses Diagnosis Other specified pervasive developmental disorders documented in this encounter
--- OUTSIDE RECORDS SUMMARY | 2024-11-14 19:19 | XMS_ITS | Encounter Summary ---
Author Organization [facility] Facility Care Team Providers Care Director Of Alumni Relations Name Role Phone Unavailable Primary Care Provider Unavailabl e Encounter Details Date Type Department Care Team (Latest Contact Info) Description 08/19/2012 11:17 AM CDT - 09/10/2012 11:02 AM CDT Hospital Encounter [facility] CLINCONV Active autistic disorder Social History Tobacco Use Types Packs/Day Years Used Date Smoking Tobacco: Never Assessed Comments Unknown Sex and Gender Information Value Date Recorded Sex Assigned at Not on file Legal Sex Female 12:45 AM BRUSHING OPERATOR Gender Identity Not on file Sexual Orientation Not on file documented as of this encounter Plan of Treatment Not on file documented as of this encounter Visit Diagnoses Diagnosis Active autistic disorder Autistic disorder, current or active state documented in this encounter
--- OUTSIDE RECORDS SUMMARY | 2024-11-14 19:19 | XMS_ITS | Encounter Summary ---
Author Organization [facility] Facility Care Team Providers Care Apprentice/Lineman Name Role Phone Unavailable Primary Care Provider Unavailabl e Encounter Details Date Type Department Care Team (Late st Contact Info) Description 07/21/2011 5:16 PM CDT - 07/21/2011 10:24 PM CDT Hospital Encounter 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
--- OUTSIDE RECORDS SUMMARY | 2024-11-14 19:19 | XMS_ITS | Encounter Summary ---
Author Organization [facility] Facility Care Team Providers Care Tug Captain Name Role Phone Unavailable Primary Care Provider Unavailabl e Encounter Details Date Type Department Care Team (Latest Contact Info) Description 04/14/2013 - 05/10/2013 1:31 PM CDT Hospital Encounter [facility] CLINCONV Active autistic disorder Social History Tobacco Use Types Packs/Day Years Used Date Smoking Tobacco: Never Assessed Comments Unknown Sex and Gender Information Value Date Recorded Sex Assigned at Not on file Legal Sex Female 12:45 AM RATING EXAMINER Gender Identity Not on file Sexual Orientation Not on file documented as of this encounter Plan of Treatment Not on file documented as of this encounter Visit Diagnoses Diagnosis Active autistic disorder Autistic disorder, current or active state documented in this encounter
--- OUTSIDE RECORDS SUMMARY | 2024-11-14 19:20 | XMS_ITS | Encounter Summary ---
Author Organization 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
--- OUTSIDE RECORDS SUMMARY | 2024-11-14 19:20 | XMS_ITS | Encounter Summary ---
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
--- OUTSIDE RECORDS SUMMARY | 2024-11-14 19:20 | XMS_ITS | Encounter Summary ---
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
--- OUTSIDE RECORDS SUMMARY | 2024-11-14 19:20 | XMS_ITS | Encounter Summary ---
Author Organization 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
--- OUTSIDE RECORDS SUMMARY | 2024-11-14 19:20 | XMS_ITS | Encounter Summary ---
Author Organization [facility] Facility Care Team Providers Care Auditing Coder Name Role Phone Unavailable Primary Care Provider Unavailabl e Encounter Details Date Type Department Care Team (Late st Contact Info) Description 12/15/2006 9:58 PM FRUIT STUFFER - 12/16/2006 12:11 AM FRUIT STUFFER Hospital Encounter [facility] CLINCONV Social History Tobacco Use Types Packs/Day Years Used Date Smoking Tobacco: Never Assessed Comments Unknown Sex and Gender Information Value Date Recorded Sex Assigned at Not on file Legal Sex Female 12:45 AM FRUIT STUFFER Gender Identity Not on file Sexual Orientation Not on file documented as of this encounter Plan of Treatment Not on file documented as of this encounter Visit Diagnoses Not on filedocumented in this encounter
--- OUTSIDE RECORDS SUMMARY | 2024-11-14 19:20 | XMS_ITS | Encounter Summary ---
Author Organization [facility] Facility Care Team Providers Care Latin Dance Instructor Name Role Phone Unavailable Primary Care Provider Unavailabl e Encounter Details Date Type Department Care Team (Late st Contact Info) Description 12/15/2006 2:27 PM KERRICK KLEANER OPERATOR - 12/15/2006 4:31 PM KERRICK KLEANER OPERATOR Hospital Encounter [facility] Social History Tobacco Use Types Packs/Day Years Used Date Smoking Tobacco: Never Assessed Comments Unknown Sex and Gender Information Value Date Recorded Sex Assigned at Not on file Legal Sex Female 12:45 AM KERRICK KLEANER OPERATOR Gender Identity Not on file Sexual Orientation Not on file documented as of this encounter Plan of Treatment Not on file documented as of this encounter Visit Diagnoses Not on filedocumented in this encounter
== END 2024-11-07 13:36 | disposition home or self-care (01) ==
PROVIDERS: Emergency Provider Nurse Practitioner; PCP Nurse Practitioner Family
DX: S50.812A Abrasion of left forearm, initial encounter (principal); S50.811A Abrasion of right forearm, initial encounter; S61.532A Puncture wound without foreign body of left wrist, initial encounter; W55.01XA Bitten by cat, initial encounter; Z23 Encounter for immunization
CPT/HCPCS: 90471; 90715; 99213; G0463

== ENCOUNTER 2025-01-11 18:24 | Emergency (ER) | payer OTHER, SELFPAY ==
--- NOTE | 2025-01-11 18:27 | ED.ANIMALBIT ---
HPI - Animal Bite General Chief Complaint: Animal Bite Stated Complaint: dog bite lower lip Time Seen by Provider: 01/11/25 18:43 Source: patient, RN notes reviewed and old records reviewed Mode of arrival: ambulatory Limitations: no limitations History of Present Illness HPI narrative: 24-year-old female presents to the [facility] with a dog bite to the lower lip. States that she was bit by her boyfriend's dog. Mild swelling noted to the bottom lip. Abrasion noted. No puncture. Last Tdap 10/2024 Onset (ago): hour(s) Related Data Patient tetanus UTD: Yes Home Medications ?Medication ?Instructions ?Recorded ?Confirmed ?Last Taken ?Type etonogestrel 0.12 mg-ethinyl vag ring vaginal 01/11/25 Unknown History estradiol 0.015 mg/24 hr vaginal ring (EnilloRing) fluoxetine 20 mg capsule mg 01/11/25 Unknown History hydroxyzine HCl 10 mg tablet mg 01/11/25 Unknown History Allergies Allergy/AdvReac Type Severity Reaction Status Date / Time clindamycin Allergy Mild HIVES Verified 01/11/25 18:26 Sulfa (Sulfonamide Allergy Mild HIVES Verified 01/11/25 18:26 Antibiotics) vancomycin AdvReac Mild Chills Verified 01/11/25 18:26 Review of Systems Review of Systems: All systems reviewed & are unremarkable except as noted in HPI and below Constitutional: Constitutional: Reports no additional constitutional complaints ENT: Reports system reviewed and no additional complaints, except as documented Cardiovascular: Cardiovascular: Reports no additional cardiovascular complaints, Denies chest pain and Denies dyspnea Respiratory: Respiratory: Reports no additional respiratory complaints, Denies chest congestion, Denies cough and Denies dyspnea Musculoskeletal: Musculoskeletal: Reports no additional musculoskeletal complaints Integumentary/Breasts: Skin/Breast: Reports as per HPI [facility] Past Medical History Medical History No significant family history Surgical History Surgical History No pertinent past surgical history Social History Social History Occupation/Education: student Gender identity (if verbalized by the patient): Female Comments At the time of my signature, I reviewed and agree with the nursing past medical, surgical, social, and family history. There is no relevant family history pertinent to the patient complaint. Exam Const: General: cooperative, healthy appearing, comfortable, no acute distress, well developed, alert and well nourished Nutritional Appearance: well nourished Orientation/consciousness: patient oriented x3 Limitations: no limitations HENMT: Head: normal to inspection Mouth/tongue images:  1. 0.5cm abrasion, no ecchymosis, no erythema. Mild swelling is noted. Eyes: General: appearance normal, both eyes and all related structures Alignment and Position: alignment normal Neck: Neck: normal visual inspection, full ROM, no lymphadenopathy and no meningeal signs Chest: Chest palpation & inspection: normal inspection of the chest Resp: Effort & Inspection: normal respiratory effort and able to speak in complete sentences Auscultation: clear to auscultation bilaterally, no crackles, no rales, no rhonchi and no wheezes Cardio: Rate: regular rate Skin: General skin exam: normal color and no rashes or lesions noted Neuro: General: patient oriented x3, gait normal, moves all extremities and no meningeal signs Cognition (Neuro): normal cognition Speech: normal speech Gait exam (Neuro): Normal gait present Extrem: General: normal to inspection, full ROM, capillary refill normal and normal gait Psych: Appearance: grossly normal and well kempt Mental Status: mental status grossly normal Speech and movement: Normal speech and movement present and Clear speech present Affect: normal affect Attitude: cooperative Course Course Level of Care: Express Care Visit Vital Signs Vital signs: Vital Signs Temperature 98.4 F 01/11/25 18:37 Pulse Rate 81 01/11/25 18:37 Respiratory Rate 16 01/11/25 18:37 Blood Pressure 124/83 01/11/25 18:37 Pulse Oximetry 99 01/11/25 18:37 Oxygen Delivery Room Air 01/11/25 18:37 Temperature 98.4 F 01/11/25 18:37 Pulse Rate 81 01/11/25 18:37 Respiratory Rate 16 01/11/25 18:37 Blood Pressure 124/83 01/11/25 18:37 Pulse Oximetry 99 01/11/25 18:37 Oxygen Delivery Room Air 01/11/25 18:37 Reviewed MDM - Animal Bite MDM Narrative Medical decision making narrative: Patient sitting comfortably in exam room. Nontoxic, vitals stable. Patient in no acute distress. Patient presents approximately 1-2 hours post dog bite. Looks more like an abrasion from the 2 4th, swelling is noted. Will cover for infection prevention with Augmentin. Patient is up-to-date on tetanus. Patient is appropriate for outpatient treatment and follow-up Discharge instructions reviewed with patient, as well as provided in writing per nursing staff. The instructions also include specific and strict return/GO TO THE ER as well as f/u information. All questions have been answered, and the patient deny any further questions with discharge and discharge plan. Some parts of this dictation were generated by voice recognition software and may contain typographical and/or grammatical inaccuracies. Differential Diagnosis Differential diagnosis: Likely bite by animal and dog bite Critical Care Time Critical Care Time Critical Care Time: No Discharge Plan Discharge Clinical Impression: Dog bite Patient Disposition: Home, Self-Care Condition: Stable Instructions: Antibiotic Form, Animal Bite (ED) Additional Instructions: Take Tylenol as needed for pain Apply ice every 2-3 hours for 15-20 minutes while awake Take antibiotic as prescribed Follow-up with primary care provider For new or worsening symptoms go directly to emergency room Patient Language: Syrian Prescriptions: New amoxicillin-pot clavulanate 875-125 mg tablet 1 tablet PO Q12H Qty: 14 0RF No Action hydroxyzine HCl 10 mg tablet fluoxetine 20 mg capsule etonogestrel-ethinyl estradiol [EnilloRing] 0.12-0.015 mg/24 hr ring VAGINAL fluticasone propionate [Flonase Allergy Relief] 50 mcg/actuation spray,suspension 2 spray intranasal DAILY Qty: 16 0RF Rx Instructions: administer into each nostril loratadine 10 mg tablet 10 mg PO DAILY Qty: 30 0RF Follow-up/Referrals: Dillon,Neda Ramirez APRN [Primary Care Provider] - 2 Weeks ([facility] follow-up) Stand Alone Forms: Work/School Release IP Time of Disposition: 18:57
[2025-01-11 18:37] VITALS: BP 124/83; PULSE 81; RESP 16; TEMP 36.9; O2SAT 99
== END 2025-01-11 19:05 | disposition home or self-care (01) ==
PROVIDERS: Emergency Provider Nurse Practitioner; PCP Nurse Practitioner Family
DX: S00.511A Abrasion of lip, initial encounter (principal); W54.0XXA Bitten by dog, initial encounter
CPT/HCPCS: 99213; G0463

== ENCOUNTER 2025-01-26 23:57 | Inpatient (IN) | payer OTHER, SELFPAY ==
[2025-01-26 09:20] VITALS: BMI 32.4
--- NOTE | 2025-01-26 09:46 | PC.NURSE ---
Report to the Outpatient Waiting Room, entrance under the green pavilion located off [facility], at time _9:00AM_ on date ___01/27/25____. Planned Procedure Time: ___11:00AM .? Time changes happen often and if your time is changed the preop area will call you the afternoon before. - You and your visitor will be asked to self-screen and do not enter if you have any COVID symptoms. Please call surgeon if you need to reschedule. - A mask is optional within the hospital at this time. Patients may have clear liquids (water, carbonated beverages, clear teas, apple juice) until 3 hours prior to surgery (8:00AM) with a maximum of 20 ounces. - No food from midnight until time of surgery and no smoking, or chewing tobacco (or any form of nicotine). No chewing gum, candy or mints. Take only the following medications with a SIP of water on the morning of surgery: ____NONE DO NOT STOP ANY OF YOUR OTHER PRESCRIPTION MEDICATIONS PRIOR TO SURGERY EXCEPT THE FOLLOWING Hold all vitamins and supplements for 3 days per anesthesiologist. Medications to discontinue per physician NONE Date to take last dose Please no make-up, nail korean, hairspray, perfume, deodorant, or body powder the day of surgery.? No jewelry (including any body piercings) or valuables the day of surgery, leave them at home.? Please take a shower or bath the night before, or the morning of, surgery with an antibacterial soap.? Wear comfortable, loose fitting clothing.? Children are encouraged to wear pajamas. - Jewelry must be removed prior to entering the operating room.? Rings and piercings that are not removed may be cut off. - The hospital will not accept responsibility for valuables.? - Please leave all valuables, including medications, at home the day of surgery. If you are going home after surgery, a licensed local city driver must drive you home.? - NO public transportation without another adult if you receive anesthesia. - We recommend that an adult stay with you for 24 hours following discharge. - We also recommend that you do not drive, make important decision, drink alcoholic beverages, or take any drugs that were not prescribed by your health care provider for at least 24 hours after your discharge time. For Pediatric surgeries, we recommend two adults accompany the child home. Follow any additional instructions given to you from your surgeon. Telephone instructions given to PATIENT and asked if any additional questions and then verbalized understanding. Patient advised to call surgeon office or pre surgery nurse liaison [phone] if any additional questions.
[2025-01-27] VITALS (89 sets, daily range): BP systolic 62–143; BP diastolic 35–83; PULSE 57–153; RESP 12–16; TEMP 36.1–36.9; O2SAT 91–100; BMI 32.0
--- OUTSIDE RECORDS SUMMARY | 2025-01-27 00:01 | XMS_ITS | Encounter Summary ---
Author Organization [facility] - [facility] Address [address] [place] [id number] Care Team Providers Care Clerical Investigator Name Role Phone Fiona Parkinson MD Primary Care Pr ovider Unavailable Jovanny Suazo MD Primary Care Provider [phone] None, Provider Primary Care Provider Unavaila Neda Escoto Primary Care Provider [phone] Encounter Details Date Type Department Care Team (Late st Contact Info) Description 01/25/2023 MyChart Message Enc [facility] Multispecialty [facility] - [address] [place] [address] Fiona Parkinson MD STD screening Social History [...] Information Value Date Recorded Sex Assigned at Female 11/25/2024 8:35 PM WATER AND SEWER SYSTEMS SUPERVISOR Legal Sex Female 7:16 PM CDT Gender [...] filedocumented in this encounter Additional Health Concerns Infection Onset Date Last Indicated Resolved Time COVID-19 Rule Out 12/27/2024 12/27/2024 12/27/2024 1:26 PM WATER AND SEWER SYSTEMS SUPERVISOR Assessment Noted Time PHQ-9 Depression Total Score: 14 022 1:17 PM WATER AND SEWER SYSTEMS SUPERVISOR documented as of this encounter Care Teams Clerical Investigator Relationship Specialty Start Date End Date Fiona Parkinson MD PCP - General FAMILY PRACTICE 10/08/22 04/14/23 Jovanny Suazo MD [address] [address] PCP - General INTERNAL MEDICINE 04/15/23 06/27/24 None, ProviderMD PCP - General UNKNOWN PHYSICIAN SPECIALTY 06/28/24 11/24/24 Neda Carranza, TRAILER SECTIONS ASSEMBLER PCP - General Nurse Practitioner Family 11/25/24 documented as of this encounter
--- OUTSIDE RECORDS SUMMARY | 2025-01-27 00:01 | XMS_ITS | Clinical Summary ---
Author Organization [facility] Address [address] [place] [address] Phone Care Team Providers Care Shopper Name Role Phone Katie Kellogg MD Primary Care Provider [phone] Allergies Active Allergy Reactions Criticality Noted Date Comments Sulfa (Sulfonamide Antibiotics) Hives High 01/2010 Medications citalopram (CELEXA) 20 mg Oral tablet Take 20 mg by mouth daily at bedtime. Active methylphenidate ER 24hr (CONCERTA) 18 mg Oral tablet Take 36 mg by mouth daily solution maker. Active Melatonin 1 mg Oral Tab Take by mouth. Active LACTOBACILLUS/FO S/PECTIN (PROBIOTIC COMPLEX ORAL) Take by mouth. Active Social History Tobacco Use Types Packs/Day Years Used Date Smoking Tobacco: Never Assessed Comments Unknown Sex and Gender Information Value Date Recorded Sex Assigned at Not on file Legal Sex Female 5:57 AM DREDGE HAND Gender Identity Not on file Sexual Orientation Not on file Last Filed Vital Signs Vital Sign Reading Time Taken Comments Blood Pressure 97/66 09/13/2010 11:17 PM CDT Pulse 88 09/13/2010 11:17 PM CDT Temperature 36.4 C (97.5 F) 09/13/2010 8:40 PM CDT Respiratory Rate 20 09/13/2010 11:17 PM CDT Oxygen Saturation 100% 09/13/2010 11:17 PM CDT Inhaled Oxygen Concentration - - Weight 37.3 kg (82 lb 4.8 oz) 09/13/2010 8:40 PM CDT Height - - Body Mass Index - - Plan of Treatment Health Maintenance Due Date Last Done Comments CHLAMYDIA SCREENING (ANNUAL) 11-24 YEARS 2011 HPV VACCINES (1 - 3-dose series) 2015 DTAP/TDAP/TD VACCINES (1 - Tdap) 2019 HEPATITIS B VACCINES (1 of 3 - 19+ 3-dose series) 12/12 CERVICAL CANCER SCREENING 2021 INFLUENZA VACCINE (#1) 2024 Care Teams Shopper Relationship Specialty Start Date End Date Katie Kellogg MD [address] [facility] [address] [place] [address] PCP - General Pediatrics 09/13/10
--- OUTSIDE RECORDS SUMMARY | 2025-01-27 00:01 | XMS_ITS | Data Portability ---
Author Organization [facility] Address [address] [place] [address] Assessment No assessment recorded. Plan of Treatment Reminders Order Date Submit Date Provider Last Modified By Organization Details Last Modified Time Details Appointments SURG Suction D&C 2024 11:00A Tuan OH MD Not available Not available Not available SURG POST OP 2024 09:15A Tuan OH MD Not available Not available Not available Lab drug screen, urine 2024 025 [email or web address] [place], [place], [address], 12/31/2024 17:35:52 Referral None recorded. Procedures None recorded. Surgeries dilation & curettage (SURG) 2024 025 [facility], [address], [place], [address], 01/26/2025 09:28:53 Imaging US, obstetric , limited 2024 025 [email or web address] [place], [address], [place], [address], 01/25/2025 21:27:25 US, obstetric , nuchal transluce ncy 2024 025 [email or web address] [place], [address], [place], [address], 12/31/2024 20:37:14 Medication Orders None recorded. Patient TargetsNo targets recorded. Patient InstructionsNo instructions recorded. Reason for Referral None Reported. Results Created Date Observation Date Name Description Value Unit Range Abnormal Flag Note LastModifiedBy Organization Detail LastModifiedTime 12/25/1912/25/2024 [UNIT Y] ANEUP LOIDY NIPT fraction 3.7% normal Not Available [facility] [address] [facility], [place], [address], 12/25/2024 17:42:09 12/25/19 25 12/25/2024 [UNIT Y] ANEUP LOIDY NIPT 22Q11.2 microdeletio n LOW RISK <1 in 10,000 normal Not Available [facility] [address] [facility], [place], [address], 12/25/2024 17:42:09 12/25/19 25 12/25/2024 [UNIT Y] ANEUP LOIDY NIPT sex chromosome aneuploidy NOT DETECT ED normal Not Available [facility] [address] [facility], [place], [address], 12/25/2024 17:42:09 12/25/19 25 12/25/2024 [UNIT Y] ANEUP LOIDY NIPT monosomy X LOW RISK <1 in 10,000 normal Not Available [facility] [address] [facility], [place], [address], 12/25/2024 17:42:09 12/25/19 25 12/25/2024 [UNIT Y] ANEUP LOIDY NIPT trisomy 13 LOW RISK <1 in 10,000 normal Not Available [facility] [address] [facility], [place], [address], 12/25/2024 17:42:09 12/25/19 25 12/25/2024 [UNIT Y] ANEUP LOIDY NIPT trisomy 18 LOW RISK <1 in 10,000 normal Not Available [facility] [address] [facility], [place], [address], 12/25/2024 17:42:09 12/25/19 25 12/25/2024 [UNIT Y] ANEUP LOIDY NIPT trisomy 21 LOW RISK <1 in 10,000 normal Not Available [facility] [address] [facility], [place], [address], 12/25/2024 17:42:09 12/25/19 25 12/25/2024 [UNIT Y] ANEUP LOIDY NIPT sex FEMALE normal Not Available [facility] [address] [facility], [place], [address], 12/25/2024 17:42:09 12/25/19 25 12/25/2024 [UNIT Y] ANEUP LOIDY NIPT gestation SINGLE TON normal Not Available [facility] [address] [facility], [place], [address], 12/25/2024 17:42:09 12/25/19 25 12/25/2024 [UNIT Y] ANEUP LOIDY NIPT for detailed report, see pdf See PDF normal Not Available [facility] [address] [facility], [place], [address], 12/25/2024 17:42:09 12/03/19 25 12/03/2024 CT/GC AND TRICH OMONA S VAGIN JONO (RRNA ), URINE chlamydia trachomatis, PCR Negati ve negati ve Not Available [facility] (Lab) [address] [place], [address], 12/04/2024 13:36:08 12/03/19 25 12/03/2024 CT/GC AND TRICH OMONA S VAGIN JONO (RRNA ), URINE neisseria gonorrhoeae, PCR Negati ve negati ve Not Available [facility] (Lab) [address] [place], [address], 12/04/2024 13:36:08 12/03/19 25 12/03/2024 CT/GC AND TRICH OMONA S VAGIN JONO (RRNA ), URINE trichomonas vaginalis ribosomal RNA (rrna) Negati ve negati ve Not Available [facility] (Lab) [address], [place], [address], 12/04/2024 13:36:08 12/21/19 25 2024 CBC W/DIF F WBC 7.0 10'3/ uL 3.5-10 .5 Not Available [facility] (Lab) [address], [place], [address], 12/22/2024 14:30:50 12/21/19 25 2024 CBC W/DIF F RBC 4.21 10'6/ uL (based on docume nted legal sex) 3.80-5 .20 Not Available [facility] (Lab) [address], [place], [address], 12/22/2024 14:30:50 12/21/19 25 2024 CBC W/DIF F HGB 12.1 g/dL (based on docume nted legal sex) 11.6-1 5.4 Not Available [facility] (Lab) [address], [place], [address], 12/22/2024 14:30:50 12/21/19 25 2024 CBC W/DIF F HCT 37.0 % (based on docume nted legal sex) 34.0-4 5.0 Not Available [facility] (Lab) [address], [place], [address], 12/22/2024 14:30:50 12/21/19 25 2024 CBC W/DIF F MCV 87.9 fL 80.0-9 9.0 Not Available [facility] (Lab) [address], [place], [address], 12/22/2024 14:30:50 12/21/19 25 2024 CBC W/DIF F MCH 28.7 pg 27.0-3 4.0 Not Available [facility] (Lab) [address], [place], [address], 12/22/2024 14:30:50 12/21/19 25 2024 CBC W/DIF F MCHC 32.7 g/dL 32.0-3 5.5 Not Available [facility] (Lab) [address], [place], [address], 12/22/2024 14:30:50 12/21/19 25 2024 CBC W/DIF F RDW 14.2 % 11.0-1 5.0 Not Available [facility] (Lab) [address], [place], [address], 12/22/2024 14:30:50 12/21/19 25 2024 CBC W/DIF F plt 164 10'3/ uL 150-40 0 Not Available [facility] (Lab) [address], [place], [address], 12/22/2024 14:30:50 12/21/19 25 2024 CBC W/DIF F MPV 13.1 fL 8.8-12 .1 high Not Available [facility] (Lab) [address], [place], [address], 12/22/2024 14:30:50 12/21/19 25 2024 CBC W/DIF F neutrophils 73.6 % 34.0-7 3.0 high Not Available [facility] (Lab) [address], [place], [address], 12/22/2024 14:30:50 12/21/19 25 2024 CBC W/DIF F lymphocytes 19.7 % 15.0-5 0.0 Not Available [facility] (Lab) [address] [facility], [place], [address], 12/22/2024 14:30:50 12/21/19 25 2024 CBC W/DIF F monocytes 5.6 % 1.0-15 .0 Not Available [facility] (Lab) [address] [facility], [place], [address], 12/22/2024 14:30:50 12/21/19 25 2024 CBC W/DIF F eosinophils 0.4 % 0.0-8. 0 Not Available [facility] (Lab) [address] [facility], [place], [address], 12/22/2024 14:30:50 12/21/19 25 2024 CBC W/DIF F basophils 0.4 % 0.0-2. 0 Not Available [facility] (Lab) [address] [facility], [place], [address], 12/22/2024 14:30:50 12/21/19 25 2024 CBC W/DIF F immature granulocytes 0.3 % no define d refere nce range Immat ure Granu locyt es (IG) repre sents autom ated enume ratio n of Metam yeloc ytes, Myelo cytes and Promy elocy alber when IG is < 5%. Blast s are not inclu ded in IG and repor bridget separ ately if prese nt. Not Available [facility] (Lab) [address] [facility], [place], [address], 12/22/2024 14:30:50 12/21/19 25 2024 CBC W/DIF F absolute neutrophils 5.1 10'3/ uL 1.5-8. 0 Not Available [facility] (Lab) [address] [facility], [place], [address], 12/22/2024 14:30:50 12/21/19 25 2024 CBC W/DIF F absolute lymphocytes 1.4 10'3/ uL 1.0-4. 0 Not Available [facility] (Lab) [address] [facility], [place], [address], 12/22/2024 14:30:50 12/21/19 25 2024 CBC W/DIF F absolute monocytes 0.4 10'3/ uL 0.2-1. 0 Not Available [facility] (Lab) [address] [facility], [place], [address], 12/22/2024 14:30:50 12/21/19 25 2024 CBC W/DIF F absolute eosinophils 0.0 10'3/ uL 0.0-0. 6 Not Available [facility] (Lab) [address] [facility], [place], [address], 12/22/2024 14:30:50 12/21/19 25 2024 CBC W/DIF F absolute basophils 0.0 10'3/ uL 0.0-0. 3 Not Available [facility] (Lab) [address] [facility], [place], [address], 12/22/2024 14:30:50 12/21/19 25 2024 CBC W/DIF F absolute immature granulocytes 0.0 10'3/ uL 0.00-0 .10 Refer ence range s for nonbi nary/ inter sex or unspe cifie d gende r patie nts have not been estab lishe d. Pleas e refer to the follo wing table for range s estab lishe d for cisge nder patie nts and evalu ate in the clini ritchie marc xt of the indiv idual patie nt: https :[email or web address] [email or web address] book. nm.or g/Gen derX Not Available [facility] (Lab) [address] [facility], [place], [address], 12/22/2024 14:30:50 12/21/19 25 2024 HEMOG LOBIN A1C hemoglobin A1C 5.0 % 4.0-5. 6 The Ameri can Diabe alber [employer] iatio n recom mends that a prima ry goal of thera py shoul d be a HBA1C of < 7% and that physi cians shoul d reeva luate the treat ment regim en in patie nts with HBA1C value s consi stent ly > 8%. <5.7% Linda l 5.7 - 6.4% Incre ased risk for diabe alber >=6.5 % Diagn ostic of diabe alber <7.0% Goal of thera py >8.0% Actio n sugge sted Not Available [facility] (Lab) [address], [place], [address], 12/22/2024 14:30:51 12/21/19 25 2024 HIV 1/2 ANTIG EN/AN TIBOD Y, REFLE X CONFI RMATI ON HIV antigen/anti body Nonrea ctive nonrea ctive HIV-1 antig en and HIV-1 /HIV- 2 antib odies were not detec bridget. No labor atory evide nce of HIV infec tion. Not Available [facility] (Lab) [address], [place], [address], 12/22/2024 14:30:51 12/21/19 25 2024 HEPAT ITIS B SURFA CE ANTIG EN hepatitis B surface antigen Non-re active non-re active This assay was perfo rmed using [employer] ratio n reage nts and test kits. Value s obtai chelsea with other assay metho ds or kits canno t be used inter puentes eably . Not Available [facility] (Lab) [address], [place], [address], 12/22/2024 14:30:52 12/21/19 25 2024 TYPE/ RH/SC REEN ABO/Rh type A POS Not Available [facility] (Lab) [address], [place], [address], 12/22/2024 14:30:52 12/21/19 25 2024 TYPE/ RH/SC REEN antibody screen NEG Not Available [facility] (Lab) [address], [place], [address], 12/22/2024 14:30:52 12/21/19 25 2024 TYPE/ RH/SC REEN exp date 2024 23:59 Not Available [facility] (Lab) [address] [facility], [place], [address], 12/22/2024 14:30:52 12/21/19 25 2024 HEPAT ITIS C ANTIB SHON SCREE N, REFLE X TO CONFI RMATI ON hepatitis C antibody Non-re active non-re active Antib odies to HCV Not Detec bridget, does not exclu de the possi bilit y of expos ure to HCV. Not Available [facility] (Lab) [address] [facility], [place], [address], 12/22/2024 14:30:52 12/21/19 25 2024 RUBEL LA IGG ANTIB SHON, QUANT rubella antibodies, IgG Reacti ve reacti ve Not Available [facility] (Lab) [address] [place], [address], 12/22/2024 14:30:52 12/21/19 25 2024 RUBEL LA IGG ANTIB SHON, QUANT rubella antibodies, IgG quant 49.7 IU/mL >=10 Non-r eacti ve (Non- Immun e) <10 IU/mL React jeremiah (Immu ne) > or = 10 IU/mL Not Available [facility] (Lab) [address] [facility], [place], [address], 12/22/2024 14:30:52 12/21/19 25 2024 RPR SCREE N, REFLE X TITER /CONF IRMAT ION RPR screen Nonrea ctive nonrea ctive Not Available [facility] (Lab) [address] [place], [address], 12/22/2024 14:30:53 12/21/19 25 2024 CULTU RE: URINE result report SEE RESULT S BELOW Test: Cultu re: Urine Speci men Sourc e: Urine - Clean Catch Speci men Type: Urine Speci men Date: 2024 1249 Resul t Date: 2024 0545 Resul t Statu s: Final resul t Abnor mal: No Resul ting Lab: [facility] [address] [facility] [address] Tel: CULTU RE ----- ----- ----- --- No growt h in 1 day (dete ction level of 10,00 0 colon ies / ml.) Not Available [facility] (Lab) [address] [place], [address], 12/23/2024 06:49:26 12/31/19 25 12/31/2024 CULTU RE: URINE result report SEE RESULT S BELOW Test: Cultu re: Urine Speci men Sourc e: Urine - Clean Catch Speci men Type: Urine Speci men Date: 2024 Resul t Date: 2024 Resul t Statu s: Final resul t Abnor mal: No Resul ting Lab: [facility] [address] [facility] [address] Tel: CULTU RE ----- ----- ----- --- No growt h in 1 day (dete ction level of 10,00 0 colon ies / ml.) Not Available [facility] (Lab) [address], [place], [address], 01/03/2025 23:59:07 12/31/19 25 12/31/2024 drug scree n, urine Amphetamines : negati ve Not Available [place] [address] [place], [address], 12/31/2024 17:35:24 12/31/19 25 12/31/2024 drug scree n, urine Cannabinoids : negati ve Not Available [place] [address], [place], [address], 12/31/2024 17:35:24 12/31/19 25 12/31/2024 drug scree n, urine Cocaine: negati ve Not Available [place] [address], [place], [address], 12/31/2024 17:35:24 12/31/19 25 12/31/2024 drug scree n, urine Opiates: negati ve Not Available [place] [address], [place], [address], 12/31/2024 17:35:24 12/31/19 25 12/31/2024 drug scree n, urine Phenocyclidi ne: negati ve Not Available [place] [address], [place], [address], 12/31/2024 17:35:24 12/31/19 25 12/31/2024 drug scree n, urine Barbiturates : negati ve Not Available [place] [address], [place], [address], 12/31/2024 17:35:24 12/31/19 25 12/31/2024 drug scree n, urine Benzodiazepi vicki: negati ve Not Available [place] [address], [place], [address], 12/31/2024 17:35:24 12/31/19 25 12/31/2024 drug scree n, urine Ethanol: negati ve Not Available [place] [address], [place], [address], 12/31/2024 17:35:24 12/31/19 25 12/31/2024 drug scree n, urine Hallucinogen s: negati ve Not Available [place] [address], [place], [address], 12/31/2024 17:35:24 12/31/19 25 12/31/2024 drug scree n, urine Inhalants: negati ve Not Available [place] [address], [place], [address], 12/31/2024 17:35:24 12/31/19 25 12/31/2024 drug scree n, urine Anabolic Steroids: negati ve Not Available [place] [address], [place], [address], 12/31/2024 17:35:24 12/03/19 25 12/03/2024 US, obste tric, 1st trime ster No observ ation record ed. [email or web address], [place], [address], 12/03/2024 18:21:43 12/03/19 25 12/03/2024 US, obste tric, 1st trime ster No observ ation record ed. [email or web address] [address], [place], [address], 12/04/2024 17:55:43 12/03/19 25 12/03/2024 US, obste tric, 1st trime ster No observ ation record ed. [email or web address] [address], [place], [address], 12/03/2024 18:20:51 12/03/19 25 12/03/2024 US, obste tric, 1st trime ster No observ ation record ed. [email or web address] [address], [place], [address], 12/04/2024 17:55:18 12/31/19 25 12/31/2024 US, obste tric, nucha l trans lucen cy No observ ation record ed. [email or web address] [place] [address], [place], [address], 12/31/2024 18:16:06 12/31/19 25 12/31/2024 US, obste tric, nucha l trans lucen cy No observ ation record ed. [email or web address] [address], [place], [address], 12/31/2024 20:34:53 01/26/20 25 01/25/2025 US, obste tric, limit ed No observ ation record ed. [email or web address] [place] [address], [place], [address], 01/25/2025 15:49:52 01/26/20 25 01/25/2025 US, obste tric, limit ed No observ ation record ed. [email or web address] [address], [place], [address], 01/25/2025 21:13:14 Result Notes None recorded. Problems Name Problem SNOMED Code Status Onset Date Resolution Date Notes Provider Name and Address Organization Details Recorded Time [id number] Active 025 Veronica underwood [facility] 16:55:23 Problem Notes None recorded. Procedures Surgical History Date Name Laterality Status Provider Name and Address Organization Details Recorded Time 10/08/20 23 Date of Last Pap Smear completed Luciemagnolia Liriano [facility] 10/08/2023 16:15:23 09/11/20 21 procedure on nose completed Nia Sigala [facility] 03/20/2022 15:13:46 06/11/20 21 Laparoscopy completed [facility] 04/16/2022 19:46:46 09/17/20 18 laparoscopic excision of cyst of right ovary completed Lucie Heri [facility] 04/16/2022 19:44:54 11/11/19 12 procedure on fingernail completed Luciemagnolia Liriano [facility] 04/16/2022 19:45:23 11/11/19 11 tonsillectomy and adenoidectomy completed [facility] Heri [facility] 04/16/2022 19:45:36 11/11/19 05 removal of silastic tubes from ear completed [facility] 04/16/2022 19:46:07 11/11/19 04 removal of silastic tubes from ear completed [facility] 04/16/2022 19:46:03 11/11/19 03 removal of silastic tubes from ear completed [facility] 04/16/2022 19:46:00 11/11/19 02 Unlisted px ant segment eye completed [facility] 04/16/2022 19:44:41 11/11/19 02 removal of silastic tubes from ear completed [facility] 04/16/2022 19:45:58 Imaging Results Imaging Date Name Status LastModified by Organization Details LastModified Time 12/03/2024 US, obstetric, 1st trimester completed [email or web address], [place], [address], 12/03/2024 18:21:43 12/03/2024 US, obstetric, 1st trimester completed [email or web address] [address], [place], [address], 12/04/2024 17:55:43 12/03/2024 US, obstetric, 1st trimester completed [email or web address], [place], [address], 12/03/2024 18:20:51 12/03/2024 US, obstetric, 1st trimester completed [email or web address] [address], [place], [address], 12/04/2024 17:55:18 12/31/2024 US, obstetric, nuchal translucency completed [email or web address] [place] [address], [place], [address], 12/31/2024 18:16:06 12/31/2024 US, obstetric, nuchal translucency completed [email or web address], [place], [address], 12/31/2024 20:34:53 01/25/2025 US, obstetric, limited completed [email or web address] [place] [address], [place], [address], 01/25/2025 15:49:52 01/25/2025 US, obstetric, limited completed [email or web address], [place], [address], 01/25/2025 21:13:14 Procedure Notes None recorded. Medical Equipment None Reported. Allergies Allergen ID Allergen Name Allergen Category Reaction Reaction Severity Criticality Documentation Date Start Date Code Code System Note Provider Name and Address Organization Details Recorded Time 21461 vancomyci n medicatio n Not available Not available Not available 03/20/[address] [facility] 2 15:11:57 31501 ethinyl estradiol / norelgest romin medicatio n nausea Not available low 10/18/2023 38731 7 RxNorm Kay lopez, [facility]- [address], [place], [address] , [facility] 3 13:53:24 853 clindamyc in Not available hives Not available Not available 04/14/2020 2582 RxNorm Cee Ruykacyalejandrina roxanne [facility] 0 01:19:48 854 Substance with sulfonami de structure and antibacte rial mechanism of action (substanc e) medicatio n hives Not available Not available 04/14/2020 99652 8003 SNOMED Crystal Ruyk[address]ytan roxanne [facility] 0 01:20:00 Medications Name Sig Start [...] Available Not Available Not Available fluconazo le 200 mg tablet TAKE 1 [...] completed Not Available Not Available Not Available Diflucan 150 mg tablet Take 1 tablet every other day by oral route. 2023 active Not Available Not Available Not Avai lable metronida zole 500 mg tablet take 1 tablet by oral route every 12 hours for 7 days with food; avoid alcohol. 12/03 completed Not Available Not Available Not Available ciproflox acin 500 mg tablet 03/20 completed Not Available Not Available Not Available doxycycli ne monohydra te 100 mg tablet take 1 tablet by oral route 2 times every day 10/07 completed Prescrib gabriela Stevens e: No Locat ion: [facility] Tuan odify By: [email or web address] Zayas [email or web address] DateTime : 09/25/20 03:45:43 PM Not Available Not Available Not Available tramadol 50 mg tablet 11/19 /2024 completed Not Available Not Available Not Available Macrobid 100 mg capsule take 1 capsule by oral route every 12 hours with food, as directed 09/22 completed Prescrib ed Elsewher e: No Locat ion: [facility] odify By: [email or web address] Arin vanessa DateTime : 04/21/20 01:45:00 PM Not Available Not Available Not [...] TOPICAL ROUTE 2 TIMES PER DAY PRN 12/03 completed Not Available Not Available Not Available nystatin 100,000 unit/gram topical cream APPLY TO THE AFFECTED AREA TWICE DAILY 12/03 completed Not Available Not Available Not Available clotrimaz ole-betam ethasone 1 %-0.05 % topical cream APPLY TO THE AFFECTED AND SURROUND ING AREAS OF SKIN BY TOPICAL ROUTE 2 TIMES PER DAY IN THE MORNING AND EVENING FOR 2 WEEKS 12/03 completed Not Available Not Available Not Available lidocaine 5 % topical patch PLACE 1 PATCH ONTO THE SKIN DAILY FOR 30 DAYS. REMOVE AND DISCARD PATCH WITHIN 12 HOURS OR DIRECTED RAVEN HUNT 04/20 completed Not Available Not Available Not Available promethaz ine 25 mg tablet Take 1 tablet every 4 hours by oral route. 12/31 completed Not Available Not Available Not Available fluoxetin e 10 mg capsule 12/03 completed Not Available Not Available Not Available amoxicill in 400 mg/5 mL oral suspensio n take 6.25 millilit er by oral route every 8 hours 04/21 completed Prescrib ed Elsewher e: Yes Loca tion: [facility] odify By: amgladys Zayas ncountbhavesh DateTime : [...] a dose pack FOLLOW PACKAGE DIRECTIO NS 12/03 completed Not Available Not Available Not Available albuterol sulfate HFA 90 mcg/actua tion aerosol inhaler INHALE 2 PUFFS BY MOUTH EVERY 4 TO 6 HOURS NEEDED FOR SHORTNES S OF BREATH OR WHEEZING active Not Available Not Available No t Available Vitamin D2 1,250 mcg (50,000 unit) capsule take 1 capsule by oral route every week 10/07 completed Prescrib ed Elsewher e: No Locat ion: [facility] odify By: amgladys mannuntbhavesh DateTime : 04/23/20 18 10:14:31 AM Not Available Not Available Not Available hydroxyzi ne HCl 10 mg tablet 12/31 completed Not Available Not Available Not Available ondansetr on 4 mg disintegr ating tablet DISSOLVE 1 TABLET ON THE TONGUE EVERY 4 TO 6 HOURS NEEDED FOR NAUSEA OR VOMITING active Not Available Not Available No t Available cefdinir 300 mg capsule take 1 capsule by oral route every 12 hours 01/16 completed Prescrib ed Elsewher e: No Locat ion: [facility] odify By: smcaley Jose M dougherty DateTime : 10/15/20 18 09:15:13 AM Not Available Not Available Not Available fluoxetin e 20 mg capsule active Not Available Not Available Not Available ParaGard T 380A 380 square mm intrauter ine device 10/07 completed Prescrib ed Elsewher e: Yes Loca tion: [facility] odify By: amgladys Zayas ncounter DateTime : 04/21/20 18 01:45:00 PM Not Available Not Available Not Available doxycycli ne hyclate 100 mg tablet TAKE 1 TABLET BY MOUTH TWICE DAILY FOR 10 DAYS 03/20 completed Not Available Not Available Not Available Hibiclens 4 % topical liquid BATHE WITH SOAP WEEKLY 03/20 completed Not Available Not Available Not Available amoxicill in 875 mg-potass ium clavulana te 125 mg tablet TAKE 1 TABLET BY MOUTH EVERY 12 HOURS active Not Available Not Available No t Available azithromy alejandra 1 gram oral packet TAKE 2 GRAMS BY MOUTH FOR ONE DOSE 03/20 completed Not Available Not Available Not Available Bactrim DS 800 mg-160 mg tablet take 1 tablet by oral route every 12 hours 10/14 completed Prescrib ed Elsewher e: No Locat ion: [facility] odify By: katerin ospina DateTime : 10/13/20 18 03:08:36 PM Not Available Not Available Not Available azithromy alejandra 500 mg tablet TAKE 2 TABLETS BY MOUTH TODAY 03/20 completed Not Available Not Available Not Available Lor 0.35 mg tablet take 1 tablet by oral route every day 10/07 completed Prescrib ed Elsewher e: No Locat ion: [facility] odify By: velia mannunter DateTime : 04/21/20 18 01:45:00 PM Not Available Not Available Not Available cyclobenz aprine 5 mg tablet 04/20 completed Not Available Not Available Not Available Paula 14 mcg/24 hr (up to 3 years) 13.5 mg intrauter ine device 02/10 completed Prescrib ed Elsewher e: Yes Loca tion: [facility]ify By: katerin ospina DateTime : 11/18/19 19 03:00:00 PM Not Available Not Available Not Available Suprax 400 mg capsule take 1 capsule by oral route every day 01/16 completed Prescrib ed Elsewher e: No Locat ion: [facility] odify By: jeff dougherty DateTime : 10/13/20 03:09:37 PM Not Available Not Available Not [...] directed for 30 days, for regulate periods. 12/03 completed Not Available Not Available Not Available Vitals Date Recorded Body height Body mass index (BMI) Body weight Systolic blood pressure Diastolic blood pressure Provider Name and Address Organization Details Last Updated DateTime 2024 162.56 cm 30.2 kg/m2 43360.26 g 113 mm[Hg] 79 mm[Hg] Soraya Ch [facility] 10:20:27 Date Recorded Body height Body mass index (BMI) Body weight Systolic blood pressure Diastolic blood pressure Provider Name and Address Organization Details Last Updated DateTime 12/31/2024 162.56 cm 30.6 kg/m2 20178.44 g 113 mm[Hg] 69 mm[Hg] Veronica [facility] 16:52:56 Date Recorded Body height Provider Name an d Address Organization Details Last Updated DateTime 01/25/[address] [facility] 01/25/2025 14:08:41 Social History Question Answer Notes LastModified by Organizat ion Details LastModified Time Tobacco Smoking Status Never Smoker Nia underwood [facility] 03/20/2022 15:13:34 What Is Your Level Of Alcohol Consumption? None Information not available 03/20/2022 Are You Blind Or Do You Have Difficulty Seeing? No Information n ot available 03/20/2022 What Is Your Level Of Caffeine Consumption? Occasional [email or web address] Information not available 04/20/2023 In The 14 Days Before Symptom Onset, Have You Had Close Contact With A Laboratory-confirm ed COVID-19 While That Case Was Ill? No [email or web address] Information n ot available 04/20/2023 In The 14 Days Before Symptom Onset, Have You Had Close Contact With A Person Who Is Under Investigation For COVID-19 While That Person Was Ill? No Information not available 04/20/2023 Have You Been To An Area Known To Be High Risk For COVID-19? No [email or web address] Information not available 04/20/2023 Are You Deaf Or Do You Have Serious Difficulty Hearing? No Information not available 03/20/2022 What Type Of Diet Are You Following? REGULAR Information n ot available 03/20/2022 Do You Use Your Seat Belt Or Car Seat Routinely? Yes [email or web address] Information not available 04/20/2023 Do You Have Smoke And Carbon Monoxide Detectors In Your Home? Yes Information not available 04/20/2023 Do You Feel Stressed (tense, Restless, Nervous, Or Anxious, Or Unable To Sleep At Night)? [id number] [email or web address] Information not available 04/20/2023 Do You Use Any Illicit Or Recreational Drugs? No [email or web address] Information not available 04/20/2023 Do You Use Sunscreen Routinely? Yes [email or web address] Information not available 04/20/2023 Has Tobacco Cessation Counseling Been Provided? No [email or web address] Information not available 04/20/2023 Do You Or Have You Ever Used Any Other Forms Of Tobacco Or Nicotine? No [email or web address] Information not available 04/20/2023 Sex: Unknown Functional [...] N Drug/Latex Allergies/Reactions N Blood Transfusion N Lung Disease N Dermatologic Disorders N Defects or Inherited Disease Y Breast [...] Date of Last Mammogram Date of LMP 10/08/2024 On BCP's at Conception? N Was last menstrual period normal Y STIs/STDs Yes HPV Vaccine Y Duration of Flow (days) 3 Current Control Method Are cycles usually normal Y Frequency of Cycle (Q days) 28 Sexually Active? Y Menses Monthly Y Date of DEXA bone scan Age of first menstrual cycle 14 Date of Last Pap Smear 10/08/2023 Sexual Problems? Y LMP Definite Obstetrics History GPAL:G 1 P 0 0 0 0 Type Value Living 0 Total 1 Past Encounters Encounter ID Performer Location Encounter Start Date Encounter Closed Date Diagnosis/Indication Diagnosis SNOMED-CT Code Diagnosis ICD10 Code Diagnosis Note [id number] WHITNEY Britton [place] [address] [address] 03/20/2022 14:53:17 03/20/2022 16:20:52 Abnormal uterine bleeding 9486065981 9100 N93.9 She has been having spotting for the past 1.5 weeks. She is sexually active, not using protection . Has had left sided pelvic pain on and off for the past few years. She had a left ovarian cyst removed last year at an outside facility.N o vaginal discharge, no urinary symptoms, no fevers/chi lls/or flu-like symptomsUr ine hcg (-) today.We agreed to do a pap smear, STI testing, bhcg, tsh, blood STI testing, and pelvic u/sRed flag symptoms discussed with patient RTC for pelvic u/s and u/s f/u appointmen t Time spent with the patient was 30 minutes Sexually t ransmitted infectious disease 5694695 A64 [id number] Becca [facility] [address] [address] 03/27/2022 14:30:04 03/27/2022 15:06:59 Irregular periods 86028106 N94.10 [id number] Ricky Oh MD [place] [address] [address] 04/16/2022 15:04:38 04/16/2022 16:50:13 Abnormal uterine bleeding 4961677909 9100 N93.9 Postcoital bleeding 4888 0000 N93.0 Contracept ion care management 001478790 Z30.9 this patient is a 21-year-ol d female who presents for abnormal uterine bleeding, abnormal ultrasound , postcoital bleeding, contracept jeremiah care. We spent more than 40 minutes face-to-fa ce. More than 50% was counseling . We discussed several topics. We talked about her abnormal uterine bleeding. I got a thorough menstrual history. She appears to have irregularl y irregular bleeding. She has periodic anovulatio n by the her symptoms. She intermitte ntly has premenstru al symptoms. We talked about contracept jeremiah care management . She has a long history with contracept ion and failed trials of varying products. We agreed to do bleeding patch. She was given instructio ns on the Z-line patch. We talked about her ultrasound findings. She has a septated fluid collection posterior cul-de-sac . She has a surgical history. She had the septated fluid collection at the time of her last surgery. We agreed not to follow this. She has postcoital bleeding. Is uncertain if this is a part of her bleeding issue. It likely is. She likely has an unstable endometriu m. We will observe this and see if it improves with the contracept ion. The cervix was previously examined was normal. The ultrasound is not helpful for her postcoital bleeding. To follow-up in 3 months. [id number] [facility] [address],[place] [address] 04/20/2023 12:13:46 05/20/2023 16:35:33 Vaginitis 03012397 N76.0 Today we agreed to send swab and await results to confirm BV prior to use of abx.STD screen sendVag swab cx sentVCG's reviewed Time spent in visit is a total of 15 mins with at least 50% of visit consisting of counseling and review of plan of care. [id number] [facility] [address],[place] [address] 05/15/2023 18:27:21 05/31/2023 15:53:36 Pain in pelvis 78450355 R10.2 Today we agreed to update US & std screening which exam supports.O nce this is completed we will f/u to discuss next steps in plan of care. Patient is to contact office or go to nearest ED/Urgent care if fever >/= 100.1, pain, excessive bleeding, unusual drainage or swelling in area of concern; or experienci ng worsening sx's or new onset of concerning sx's. Understand ing verbalized . All questions answered to patient satisfacti on. Time spent in visit is a total of 25 mins with at least 50% of visit consisting of counseling and review of plan of care. Venereal d isease screening 543295321 Z11.3 Update std screen for SA with a new partner [id number] [facility] [address],[place] [address] 05/20/2023 17:32:44 05/20/2023 18:08:04 Pain in pelvis 21619672 R10.2 [id number] Kyra Adkins MIR [place] [address],[place] [address] 07/08/2023 16:24:05 07/08/2023 16:55:49 Amenorrhea 80685411 N91.2 Irregular periods 228293 07 N92.6 UPT (-)she would like bhcg done today, ordereddis cussed recent irregular period, encouraged to track cycles over the next 3 months and notify the office if irregulari ties continueBC options discussed, declineden couraged daily PNVSTI testing declineddu e for repeat pelvic u/s for f/u on ovarian cyst seen on TVUS on 05/20/23 - ordered, encouraged to schedulewi ll update patient with results when available Time spent in visit is a total of 18 mins with at least 50% of visit consisting of counseling and review of plan of care. Cyst of ovary 04998445 N 83.209 [id number] Tracy Padilla [place] [address],[place] [address] 07/18/2023 17:29:49 07/19/2023 14:31:42 Irregular periods 78997829 N94.10 [id number] Kyra Adkins [facility] [address],[place] [address] 08/22/2023 17:15:34 08/22/2023 17:48:32 Exposure to chlamydia 3272395596 104 Z20.2 UPT (-)gc/ct/t rich testing sentblood STI panel orderedrec ommended treatment for chlamydia given exposure - rx sent, r/b/a reviewedal l partners need testing/tr eatment. Abstain from IC until all partners treated and its been 10 days since last dose of medication for all.Safe sexual practices discussed and encouraged BC options discussed - declined at this time. Condom use encouraged Time spent in visit is a total of 35 mins with at least 50% of visit consisting of counseling and review of plan of care. Irregular periods 378866 07 N92.6 Unprotecte d sexual intercourse 1323586 Z72.51 Venereal d isease screening 988425244 Z11.3 Sexually t ransmitted infectious disease 3278253 A64 Contracept ion care management 189098399 Z30.9 [id number] Kyra Adkins MIR [place] [address],[place] [address] 10/08/2023 15:06:13 10/08/2023 15:48:08 Irregular periods 95414882 N92.6 Postcoital bleeding 4888 0000 N93.0 pap/STI testing updatedTVU S orderedpre cautions reviewedRT C to review result Time spent in visit is a total of 30 mins with at least 50% of visit consisting of counseling and review of plan of care. Dysuria 49844674 R30.0 Venereal d isease screening 539699730 Z11.3 Screening for malignant neoplasm of cervix 300504393 Z12.4 [id number] Kaur Corbin [place] [address],[place] [address] 10/15/2023 15:00:27 10/15/2023 16:21:16 Irregular periods 60504314 N94.10 R10.2 [id number] [facility] [address],[place] [address] 10/18/2023 13:21:37 10/18/2023 13:59:31 Irregular periods 92195055 N92.6 Today we reviewed the imaging results.Jh chris verbalized .We decided to re-initiat [facility] to help regulate periods & avoid ovarian cysts.She is feeling better today. Will return in 3mos for med check unless needs sooner appt. Counseled on medication R/B's, Most common side effects, & use. All questions were answered to patient satisfacti on. Time spent in visit is a total of 22 mins with at least 50% of visit consisting of counseling and review of plan of care. Contracept ion care management 083201678 Z30.9 Discussed all control options in great detail. Pt would like to start nuvaring. She is aware of the risks and benefits. She does not have any medical condition that is contraindi cated with the use of estrogen containing control. Pt will place the nuvaring on the first saturday following the start of her period. She is aware it is not effective for control the first month. She is also aware of the importance of timely insertion and removal. Encouraged use of condoms as the nuvaring does not protect against STD's. Will return in 3 months for med check. Consent was read and signed. Pt verbalized understand ing. [id number] [facility] [address],[place] [address] 12/19/2023 16:50:36 12/25/2023 16:42:05 Vaginitis 65506640 N76.0 Exam WNLWill monitor for nowMost sx's have resolved.N o other issues presentDec lined need for STD screen Time spent in visit is a total of 15 mins with at least 50% of visit consisting of counseling and review of plan of care. [id number] [facility] [address],[place] [address] 03/26/2024 14:39:26 03/26/2024 15:26:48 Vaginitis 21068268 N76.0 Suspect yeast/BV on exam today.Disc ussed VCG's rec'sRx sentSTD's updated at recent ED visit for ruptured cyst.Feeli ng better now-pain has resolved. Counseled on medication R/B's, Most common side effects, & use. All questions were answered to patient satisfacti on. Time spent in visit is a total of 21 mins with at least 50% of visit consisting of counseling and review of plan of care. [id number] Nia Sigala [place] [address],[place] [address] 07/20/2024 10:58:56 07/20/2024 11:20:56 Venereal disease screening 485293979 Z11.3 [id number] Ricky Oh MD [place] [address],[place] [address] 09/29/2024 12:32:40 09/30/2024 09:10:54 Vulvovaginitis 13643688 N76.0 Contracept ion care management 021055533 Z30.9 this patient is a 23-year-ol d female with vulvar irritation and vaginal discharge. Patient reports significan t history of BV and yeast. She thinks that she may have both. We agreed to treat for both. She was examined. The vulva and distal vagina appeared normal. Swabs were taken. She was prescribed medication for the treatment of BV and vulvovagin itis. Three medication s were sent. They were prescribed . We discussed risks, benefits, and alternativ es to each medication . We discussed instructio ns and precaution s. We also discuss contracept jeremiah care management . She would like to restart the NuvaRing. NuvaRing was used historical ly. She was reminded about instructio ns and precaution s of the NuvaRing. She was given risks, benefits, and alternativ es to combined hormonal contracept ion [id number] Kaur Corbin [place] [address],[place] [address] 11/19/2024 12:02:02 11/19/2024 12:59:48 ultrasound confirms intrauterine 357114044 Z33.1 O36.80X9 Z3A.01 [id number] Becca John [place] [address],[place] [address] 12/03/2024 11:24:42 12/03/2024 12:08:32 [id number] Ricky Oh MD [place] [address],[place] [address] 12/03/2024 11:33:51 12/04/2024 07:09:56 Nausea and vomiting 14484428 R11.2 Amenorrhea 51170246 N91. 2 this patient is a 23year-old female who presents for amenorrhea . She is a positive test. Ultrasound revealed a 1st trimester gestation. Patient has no complaints . We talked about early care. Talked about genetic screening. We talked about her ultrasound results. We talked about the 12 week ultrasound that has genetic screening components . She was given recommenda tions on exercise, diet, over-the-c ounter medication s. We reviewed her obstetric history. We reviewed her medical history. We reviewed her social history. She will begin routine care at her next visit. [id number] ANTHONY MCDERMOTT MD [place] [address],[place] [address] 2024 10:07:05 2024 10:52:45 Cramping pain 213744680 R52 - patient reports urine odor and cramping in lower abdomen and back- no dysuria or hematuria- will send urine for culture and treat based on results [id number] Kaur Corbin [place] [address],[place] [address] 12/31/2024 16:06:40 12/31/2024 16:51:15 screening 675266345 Z36.82 Z3A.12 [id number] Ricky Oh MD [place] [address],[place] [address] 12/31/2024 16:08:00 12/31/2024 17:52:37 Routine care 807016703 Z34.91 [id number] Becca [facility] [address],[place] [address] 01/25/2025 13:34:40 01/25/2025 14:10:59 Missed miscarriage 38991135 O02.1 Z3A.00 [id number] [place] [address],[place] [address] 01/25/2025 14:07:44 01/25/2025 14:38:19 Missed miscarriage 52299479 O02.1 Z3A.00 This patient is a 24yo female who presents for missed discussed the etiology, frequency, natural history, and treatment of this condition. Spent more than 35 minutes talking about the above, as well as, her history, the particular findings of her case, and detail of her the treatment options. We discussed the risk benefits of each option. She understand s the risk include infection and hemorrhage . She understand s a D&C also holds the risk of injury. She understand s that waiting can result in a septic that is even more difficult to treat. We talked about signs and symptoms of infection. we have agreed to proceed with suction D&C/DnE. The patient understand s the procedure. The procedure was described to the patient in great detail. the patient also understand s the risks. The risks were also explained in detail. She understand s that injuries May occur during surgery. She understand s these injuries can result in hospitaliz ation, more surgery, and severe illness. She understand s there is risk of hemorrhage and infection. I spent more than 30 minutes on her care in total. Health Concerns Section Related Observation LastModified by Organization Detai ls LastModified Time None Recorded Concern Status LastModified by Organization Details LastModified Time None Recorded Advance Directives Directive None Recorded Payers Encounter Date Sequence Insurance Name Policy Number Policy Kumar Covered Member ID Kumar Member ID Guarantor Name 2024 1 [facility] (MEDICAID HMO) [id number] Angela Peterson [id number] Angela Lawton Nicholas 12/31/2024 1 [facility] (MEDICAID HMO) [id number] Angela Peterson [id number] Angela Lawton Nicholas 12/31/2024 1 [facility] (MEDICAID HMO) [id number] Angela Peterson [id number] Angela Spencervin 01/25/2025 1 [facility] (MEDICAID HMO) [id number] Angela Peterson [id number] Angela Spencervin 01/25/2025 1 [facility] (MEDICAID HMO) [id number] Angela Peterson [id number] Angela Peterson Notes Date Note Type Note Provider Name and Address Organization Details Recorded Time 2024 text/html Patient presents for evaluation of UTI. She reports some odor as well as lower abdominal/back cramping. No fevers or chills. No dysuria, hematuria, or abnormal vaginal discharge. ANTHONY MCDERMOTT MD [address], [place], [address], [facility] 2024 10:41:16 01/25/2025 text/html This patient is a 24yo female who presents for missed discussed the etiology, frequency, natural history, and treatment of this condition. Spent more than 35 minutes talking about the above, as well as, her history, the particular findings of her case, and detail of her the treatment options. We discussed the risk benefits of each option. She understands the risk include infection and hemorrhage. She understands a D&C also holds the risk of injury. She understands that waiting can result in a septic that is even more difficult to treat. We talked about signs and symptoms of infection.we have agreed to proceed with suction D&C/DnE. The patient understands the procedure. The procedure was described to the patient in great detail. the patient also understands the risks. The risks were also explained in detail. She understands that injuries May occur during surgery. She understands these injuries can result in hospitalization, more surgery, and severe illness. She understands there is risk of hemorrhage and infection. I spent more than 30 minutes on her care in total. Ricky Oh MD [address], [place], [address], [facility] 01/25/2025 14:36:41 OBGyn Episode Ob Episode Information Episode Created Date Number of Fetuses Patient Bloodtype Patient rh Status Prepregnancy Weight lbs Domestic Partner Domestic Partner Phone Father Name Communications Engineering Technician Status 12/31/19 25 1 A Positive Ayan OPEN Fetus Data First Name Last Name Admitted to NICU Weight (g) Sex Living Outcome Pediatric Complications Fetus ID Race Codes Race Delivery Type [id number] Chris Calculation Initial Chris Date Initial Exam Date Initial Exam Provider Initial Ultrasound Date Last Menstrual Period Date Ultra Sound Weeks Gestation 12/31/2024 12/03/2024 10/08/2024 8 Eighteen To Twenty Week Chris Update Ultra Sound Date Fundal Height At Umbil Quickening Date Ultra Sound Latest Weeks Gestation Final Chris Confirmed By Final Chris Confirmed Date Final Chris Date Ultra Sound Latest Days Gestation 0 [email or web address] 12/31/2024 07/15/20 25 0 Pre- Flowsheet Flowsheet Date 12/31/2024 Johnson Score Blood Edema Fundus Height Fundus Units Glucose Ketones Leukocytes Nitrite Labor Signs Protein Cervic Dilation Cervic Effacement Cervic Station Type Weight in lbs Pre/Post Dialysis Refused Weight 178.554723875364 BP Diastolic BP Location Tested BP Systolic BP Type 69 L arm 113 sitting Fetus Heart Rate Present A 145 Fetus Movement Comments this patient is a 24-year-ol d nuliparous female at 12 weeks' gestation who presents for initial care. Her medical, surgical, obstetric history is unremarkable. She is vaccinated. She was given precautions recommendations for . We talked about vaccines in . Talked about care in detail. She is having genetic testing. She had a normal 12 week ultrasound. To begin routine care. Flowsheet Date 01/25/2025 Johnson Score Blood Edema Fundus Height Fundus Units Glucose Ketones Leukocytes Nitrite Labor Signs Protein Cervic Dilation Cervic Effacement Cervic Station Type Weight in lbs Pre/Post Dialysis Refused BP Diastolic BP Location Tested BP Systolic BP Type Fetus Heart Rate Present Fetus Movement Comments Flowsheet Date 01/25/2025 Johnson Score Blood Edema Fundus Height Fundus Units Glucose Ketones Leukocytes Nitrite Labor Signs Protein Cervic Dilation Cervic Effacement Cervic Station Type Weight in lbs Pre/Post Dialysis Refused 0.0 Not Performed BP Diastolic BP Location Tested BP Systolic BP Type Fetus Heart Rate Present Fetus Movement Comments Menstrual History Last Menstrual Date Menses Monthly On Bcp Conception Prior Menses Frequency Hcg Plus Date Menarche Onset Age 1110/08/2024 true Delivery Information Delivery Date Delivery Type Labor Anesthesia Weeks Gestation Incision Type Labor Labor Length Hrs Delivered By Post Complications Tubal Sterilization Discharge Date Comments Discharge Information Feeding Method Contraceptive Method Maternal HG B and HCT Levels
--- OUTSIDE RECORDS SUMMARY | 2025-01-27 00:01 | XMS_ITS | Referral Summary ---
Author Organization [facility] ospital Address [address] [place] [address] Care Team Providers Care Wildlife Photographer Name Role Phone Katie Kellogg MD Unavailable [phone] Neda Carranza NP Primary Care Provider [phone] Kyra Prieto NP Unavailable [phone] Encounters Date Type Department Care Team Description 01/21/2025 Documentation [facility] Primary Care at [address] [address] Neda Carranza NP 12/03/2024 2:30 PM CAUSTIC OPERATOR Office Visit [facility] Primary Care at [address] [address] Neda Carranza NP Anxiety (Primary Dx) from Last 3 Months Allergies Active Allergy Reactions Criticality Noted Date Comments Clindamycin Hives Reaction: HIVES, Sulfa (Sulfonamide Antibiotics) Hives Medium 04/11 Hives Vancomycin Fever Medium 06/30/2024 Medications clotrimazole-be tamethasone (LOTRISONE) cream Apply by topical route for 5 days. Active albuterol HFA (PROVENTIL HFA,VENTOLIN HFA,PROAIR HFA) 90 mcg/actuation inhaler INHALE 2 PUFFS BY MOUTH EVERY 4 TO 6 HOURS NEEDED FOR SHORTNESS OF BREATH OR WHEEZING Active NuvaRing 0.12-0.015 mg/24 hr vaginal ring Insert 1 vaginal ring every month by vaginal route as directed for 30 days, for regulate periods. 4 Active methylphenidate ER (CONCERTA) 18 mg CR tablet Take 2 tablets (36 mg total) by mouth daily Active traMADoL (ULTRAM) 50 mg tablet Active triamcinolone (KENALOG) 0.1 % ointment 4 Active methylPREDNISol one (MEDROL DOSEPACK) 4 mg DosepackIndicat ions:Pharyngiti s, unspecified etiology,Neck muscle strain, initial encounter Take 6 tabs on day 1, reduce dose by 1 daily until prescription is complete. 1 packet 4 Active Additional Information Patient not taking.Reported on 12/03/2024 hydrOXYzine (ATARAX) 10 mg tablet Take 1 tablet (10 mg total) by mouth every 8 (eight) hours as needed for anxiety 60 tablet 1 4 Active Additional Information Patient not taking.Reported on 12/03/2024 vit 33-ipdp-nxeth-d cristina 27mg iron- 800 mcg-250 mg capsule Take by mouth Active FLUoxetine (PROzac) 20 mg capsule Take 1 capsule (20 mg total) by mouth daily 90 capsule 5 03/22/20 25 Active Active Problems Problem Noted Date Diagnosed [...] diarrhea 05/28/2018 Anxiety 10/01/2017 Assessment & Plan (12/03/2024 6:49 PM CAUSTIC OPERATOR): Fluoxetine has worked well until about patient's 5th-6th week of . She is very irritable. We discussed this could be related to the hormones. She has discussed with her OBGYN and provider did not want to her to adjust her Fluoxetine. Discussed with her that we can give it more time as 1st trimester hormones can cause increased irritability and she is still wrapping her mind around being (this was unexpected). She is going to work with OBGYN on mood and medication. Counseling would also be a good option. Assessment & Plan (06/30/2024 4:31 PM CDT): [...] disorder 12/27/2010 Periumbilical abdominal pain 09/08/2010 Immunizations Immunization Administration Dates Next Due DTaP 05/29/2006, 2,06/17/2001,04/21,02/18/2001 DTaP / IPV 05/29/2006, 2,04/21/2001,02/18 HPV, Quadrivalent 07/24/2011,01/31/2011,12/22/19 11 Hep A, Pediatric 06/05/2018,06/09/2010 Hep B / HiB 09/22/2001,02/18/2001 Hep B, Adolescent or Pediatric 2000 HiB 04/21/2001 Hib (HbOC) 03/23/2002 IPV 05/29/2006, 2,04/21/2001,02/18 Influenza, Quadrivalent, Spl it, Preservative Free, Intramuscular 01/20/2020,09/30/2014 Influenza, Split 11/26/2012,07/24/2011 Influenza, Trivalent, Preser vative Free, Intramuscular 11/20/2013 Influenza, Unspecified 11/11/2023(Deferr ed: Patient Refused),11/11/2022(Deferred: Patient Refused) MMR 05/29/2006,03/23/2002,01/23/2002 Meningococcal MCV4P (Menactra) 06/05/2018,2011 Pneumococcal Conjugate 7-Valent 01/24/20 02,10/04/2001,06/17/2001,02/18 Tdap 05/07/2012 Varicella 06/09/2010,01/23/2002 Social History Tobacco Use Types Packs/Day Years Used Date Smoking Tobacco: Never PHQ-2 Answer Date Recorded PHQ-2 Total Score (If total score is 3 or more points, staff should administer the PHQ-9) 6 12/03/2024 PHQ-9 Answer Date Recorded PHQ-9 Total Score 16 12/03/2024 Comments No Sex and Gender Information Value Date Recorded Sex Assigned at Not on file Legal Sex Female 12:45 AM CAUSTIC OPERATOR Gender Identity Not on file Sexual Orientation Not on file Last Filed Vital Signs Vital Sign Reading Time Taken Comments Blood Pressure 110/60 12/03/2024 2:52 PM CAUSTIC OPERATOR Pulse 80 12/03/2024 2:52 PM CAUSTIC OPERATOR Temperature 37 C (98.6 F) 12/03/2024 2:52 PM CAUSTIC OPERATOR Respiratory Rate 20 10/04/2024 4:47 PM CAUSTIC OPERATOR Oxygen Saturation 98% 12/03/2024 2:52 PM CAUSTIC OPERATOR Inhaled Oxygen Concentration - - Weight 77.6 kg (171 lb) 12/03/2024 2:52 PM CAUSTIC OPERATOR Height 160 cm (5' 3) 12/03/2024 2:52 PM CAUSTIC OPERATOR Body Mass Index 30.29 12/03/2024 2:52 PM CAUSTIC OPERATOR Plan of Treatment Not on file Procedures Procedure Name Priority Date/Time Associated Diagnosis Comments HM PAP SMEAR Routine 10/08/2023 9:30 AM CAUSTIC OPERATOR N. GONORRHOEAE/C. TRACHOMATIS AMPLIFICATION TEST STAT 04/23/2019 5:16 PM CDT from Last 3 Months or Most Recently Relevant to Health Maintenance Results * HM PAP SMEAR (10/08/2023 9:30 AM CAUSTIC OPERATOR) Historical Provider HEALTH MAINTENANCE Final Result * N. gonorrhoeae/C. trachomatis amplification test Urine (04/23/2019 5:16 PM CDT) Report Final Report: Negative for: Chlamydia trachomatis rRNA Negative for: Neisseria gonorrhoeae rRNA [facility] Comment:Testing performed by : [facility], [address] [place]., [address] Urine 04/23/2019 5:16 PM CDT 04/23/2019 7:20 PM CDT Narrative [facility] - 04/24/2019 1:26 PM CDT Testing performed by the Gen-Probe [employer] APTIMA Combo 2 Assay. This nucleic acid amplification test (NAAT) detects ribosomal RNA (rRNA) from Chlamydia trachomatis and Neisseria gonorrhoeae using target capture,and Oracle Hrms Consultant-Mediated Amplification (TMA). This test is approved by the [place] Food and Drug Administration for endocervical, vaginal, and male urethral swab specimens, in addition to male and female urine specimens. The performance characteristics for these specimen types have been verified by the [facility].The performance characteristics of this assay for pharyngeal and rectal specimens collected from cervical swab collection devices have been validated and verified by the [facility]. Verification studies support a [...] MICROBIOLOGY - GENERAL ORDERABLES Final Result [facility] [place] [address] from Last 3 Months or Most Recently Relevant to Health Maintenance Insurance [place] [address] [facility] Advance Directives For more information, please contact: [phone] Documents on File Type Date Recorded Patient Preform Plate Maker Expl anation ADVANCE DIRECTIVE 04/23/2019 4:57 PM Care Teams Wildlife Photographer Relationship Specialty Start Date End Date Neda Carranza NP [address] [place] [address] PCP - General Family Medicine 06/30/24 Katie Kellogg MD [address] [address] 09/27/20 Kyra Prieto NP [address] [place] [address] Nurse Practitioner Obstetrics and Gynecology 06/30/24
--- OUTSIDE RECORDS SUMMARY | 2025-01-27 00:01 | XMS_ITS | Clinical Summary ---
Author Organization [facility] Address [address] [place] [address] Care Team Providers Care Barrel Repairer Name Role Phone Katie Kellogg MD Primary Care Provider [phone] Source Comments [facility],non-owned Affiliates and Associated Physician Practices is amultiple site organization consisting of ambulatory clinics and hospital sitesin [place], [place], [place] and [place]. This disclosure is being madepursuant to the Care Everywhere program and may not contain all information available regarding this patient. Last updated 18.[facility] Allergies Active Allergy Reactions Criticality Noted Date [...] AM CDT Pulse 60 11/19/2018 3:28 PM BENEFITS ADVISOR Temperature 37.1 C (98.8 F) 11/19/2018 3:28 PM BENEFITS ADVISOR Respiratory Rate 16 05/19/2018 9:50 AM CDT p er pcp Oxygen Saturation - - Inhaled Oxygen Concentration - - Weight 73.5 kg (162 lb) 05/04/2019 11:34 AM CDT Height 160 cm (5' 3) 05/04/2019 11:34 AM CDT Body Mass Index 28.7 05/04/2019 11:34 AM CDT Plan of Treatment Health Maintenance Due Date Last Done Comments PAP SMEAR 2000 HIV SCREENING 2015 HPV VACCINE (1 - 3-dose series) 2015 CHLAMYDIA/GONORRHEA SCREENING 2016 HEPATITIS C SCREENING 12/17/2018 DTAP/TDAP/TD VACCINES (1 - Tdap) 2019 HEPATITIS B VACCINE (1 of 3 - 19+ 3-dose series) 2019 COVID-19 VACCINE (1 - 2023-2 5 season) 2024 INFLUENZA VACCINE (#1) 2024 DEPRESSION SCREENING 11/11/2024 ZOSTER VACCINE (1 of 2) 2050 HIB VACCINE Aged Out No longer eligi ble based on patient's age to complete this topic MENINGOCOCCAL (Group B) VACC INE SHARED DECISION-MAKING Aged Out No longer eligibl e based on patient's age to complete this topic MENINGOCOCCAL GROUPS A/C/Y/W VACCINE Aged Out No longer eligible b ased on patient's age to complete this topic PNEUMOCOCCAL VACCINE Aged Out No long er eligible based on patient's age to complete this topic Care Teams Barrel Repairer Relationship Specialty Start Date End Date Katie Kellogg MD [address] [place] [address] PCP - General 05/31/18
--- OUTSIDE RECORDS SUMMARY | 2025-01-27 00:01 | XMS_ITS | Encounter Summary ---
Author Organization [facility] Address [address] [place] [address] Care Team Providers Care Mechanic Welder Name Role Phone Filemon Cortney HESTER Primary Care Provider [phone] Fiona Parkinson MD Primary Care Pr ovider Unavailable Jovanny Suazo MD Primary Care Provider [phone] None, Provider Primary Care Provider Unavaila Neda Escoto SLOT EDITOR Primary Care Provider [phone] Encounter Details Date Type Department Care Team (Late st Contact Info) Description 07/11/2021 Hospital Follow-up Call [facility] [place] [address] Fani Moctezuma, RN Social History Tobacco Use Types Packs/Day Years Used Date Smoking Tobacco: Never Smokeless Tobacco: Never Alcohol Use Standard Drinks/Week Comments Not Currently 0 (1 standard drink = 0.6 oz pur e alcohol) Comments No Sex and Gender Information Value Date Recorded Sex Assigned at Female 11/25/2024 8:35 PM DERMATOLOGY NURSE Legal Sex Female 7:16 PM CDT Gender [...] CDT Alba Palomares R Moses Active documented in this encounter Plan of Treatment Not on file documented as of this encounter Visit Diagnoses Not on filedocumented in this encounter Additional Health Concerns Infection Onset Date Last Indicated Resolved Time COVID-19 Rule Out 12/27/2024 12/27/2024 12/27/2024 1:26 PM DERMATOLOGY NURSE documented as of this encounter Care Teams Mechanic Welder Relationship Specialty Start Date End Date Cortney Colbert NP [address] [place] [address] PCP - General NURSE PRACTITIONER 05/06/21 10/07/22 Fiona Parkinson MD [address] [place] [address] PCP - General FAMILY PRACTICE 10/08/22 04/14/23 Jovanny Suazo MD [address] [place] [address] PCP - General INTERNAL MEDICINE 04/15/23 06/27/24 None, Provider, MD PCP - General UNKNOWN PHYSICIAN SPECIALTY 06/28/24 11/24/24 Neda Carranza, SLOT EDITOR PCP - General Nurse Practitioner Family 11/25/24 documented as of this encounter
--- OUTSIDE RECORDS SUMMARY | 2025-01-27 00:01 | XMS_ITS | Clinical Summary ---
Author Organization [facility] ospital Address [address] [place] [address] Care Team Providers Care Auto Machinist Name Role Phone Katie Kellogg MD Unavailable Neda Carranza NP Primary Care Provider [phone] Kyra Prieto NP Unavailable [phone] Allergies Active Allergy Reactions Criticality Noted Date [...] Information Patient not taking.Reported on 12/03/2024 vit 09-ilre-sdqpm-d cristina 27mg iron- 800 mcg-250 mg capsule [...] 10/01/2017 Assessment & Plan (12/03/2024 6:49 PM DIGESTER CAPPER): Fluoxetine has worked well until about patient's [...] Type Department Care Team Description 01/21/2025 Documentation [facility] Primary Care at [address] [address] Neda Carranza NP 12/03/2024 2:30 PM DIGESTER CAPPER Office Visit [facility] Primary Care at [address] [address] Neda Carranza NP Anxiety (Primary Dx) from Last 3 Months Immunizations Immunization Administration Dates Next Due DTaP [...] 7-Valent 01/24/20 02,10/04/2001,06/17/2001,02/18 Tdap 05/07/2012 Varicella 06/09/2010,01/23/2002 Surgical History Surgery Date Site/Laterality Comments TONSILLECTOMY [...] on file Legal Sex Female 12:45 AM DIGESTER CAPPER Gender Identity Not on file Sexual Orientation Not on file Obstetrics History Last Filed Vital Signs Vital Sign Reading Time Taken Comments Blood Pressure 110/60 12/03/2024 2:52 PM DIGESTER CAPPER Pulse 80 12/03/2024 2:52 PM DIGESTER CAPPER Temperature 37 C (98.6 F) 12/03/2024 2:52 PM DIGESTER CAPPER Respiratory Rate 20 10/04/2024 4:47 PM DIGESTER CAPPER Oxygen Saturation 98% 12/03/2024 2:52 PM DIGESTER CAPPER Inhaled Oxygen Concentration - - Weight 77.6 kg (171 lb) 12/03/2024 2:52 PM DIGESTER CAPPER Height 160 cm (5' 3) 12/03/2024 2:52 PM DIGESTER CAPPER Body Mass Index 30.29 12/03/2024 2:52 PM DIGESTER CAPPER Plan of Treatment Health Maintenance Due Date Last Done Comments Hepatitis C Screening 2000 Regular Well Visit/Exam 18-64 2018 Chlamydia and Gonorrhea (GC/ CT) Screening 04/23/2020 04/23/2019, 07/24/2017, 04/18/2017 DTaP/Tdap/Td Vaccine (7 - Td or Tdap) 05/07/2022 05/07/2012, 05/29/2006, 05/29/2006, Additional history exists Covid-19 Vaccine (2023-2 5 season) 2024 05/01/2021, 04/03/2021 Influenza Vaccine (#1) 2024 , 09/30/2014, 11/20/2013, Additional history exists Cervical Cancer Screening 04/30/20252023, 10/08/2023, 01/24/2023 Depression Screening 12/03/2025 12/03/2024, 12/03/2024, 06/30/2024, Additional history exists Hepatitis B Screening Completed 09/22/2001 , 02/18/2001, 2000 Pneumococcal vaccine <65 Completed 002, 10/04/2001, 06/17/2001, Additional history exists Varicella Vaccines Completed 06/09/2010, 01/23/2002 HPV Vaccines Completed 07/24/2011, 01/10, 12/22/2010 Procedures Procedure Name Priority Date/Time Associated Diagnosis Comments HM PAP SMEAR Routine 10/08/2023 9:30 AM DIGESTER CAPPER N. GONORRHOEAE/C. TRACHOMATIS AMPLIFICATION TEST STAT 04/23/2019 5:16 PM CDT from Last 3 Months or Most Recently Relevant to Health Maintenance Results * HM PAP SMEAR (10/08/2023 9:30 AM DIGESTER CAPPER) us Historical Provider HEALTH MAINTENANCE Final Result * N. gonorrhoeae/C. trachomatis amplification test Urine (04/23/2019 5:16 PM CDT) Report Final Report: Negative for: Chlamydia trachomatis rRNA Negative for: Neisseria gonorrhoeae rRNA [facility] Comment:Testing performed by : [facility], [address] [place]., [address] Urine 04/23/2019 5:16 PM CDT 04/23/2019 7:20 PM CDT Narrative [facility] - 04/24/2019 1:26 PM CDT Testing performed by the Gen-Probe [employer] APTIMA Combo 2 Assay. This nucleic acid amplification test (NAAT) detects ribosomal RNA (rRNA) from Chlamydia trachomatis and Neisseria gonorrhoeae using target capture,and Orthopedic Specialist-Mediated Amplification (TMA). This test is approved by the [place] Food and Drug Administration for endocervical, vaginal, and male urethral swab specimens, in addition to male and female urine specimens. The performance characteristics for these specimen types have been verified by the [facility].The performance characteristics of this assay for pharyngeal and rectal specimens collected from cervical swab collection devices have been validated and verified by the [facility]. Verification studies support a [...] LAB MICROBIOLOGY - GENERAL ORDERABLES Final Result [facility] Department [place] [address] from Last 3 Months or Most Recently Relevant to Health Maintenance Insurance [facility] Advance Directives For more information, please contact: [phone] Documents on File Type Date Recorded Patient Direct Support Professional Expl anation ADVANCE DIRECTIVE 04/23/2019 4:57 PM Care Teams Auto Machinist Relationship Specialty Start Date End Date Neda Carranza NP [address] [place], [place] [id number] PCP - General Family Medicine 06/30/24 Katie Kellogg MD [address] [place] [address] 09/27/20 Kyra Prieto NP [address] [place] [address] Nurse Practitioner Obstetrics and Gynecology 06/30/24
--- OUTSIDE RECORDS SUMMARY | 2025-01-27 00:01 | XMS_ITS | Clinical Summary ---
Author Organization [facility] Address [facility] [place] [address] Care Team Providers Care Corporate Bond Trader Name Role Phone Neda Carranza METEOROLOGY INSTRUCTOR Primary Care Provider [phone] Allergies Active Allergy Reactions Criticality Noted Date Comments Clindamycin Hives Low 05/06/2021 Norelgestromin-Eth Estradiol Nausea Only 2023 Sulfa Antibiotics Hives High 05/06/2021 Vancomycin Infusion Reaction High 01/26/2022 Fever, chills Medications ondansetron (ZOFRAN-ODT) 4 MG disintegrating tablet Take 1 tablet (4 mg total) by mouth every 8 (eight) hours as needed for Nausea. 10 tablet Active Active Problems Problem Noted Date Diagnosed [...] preventative medication. Distal radius fracture, right 04/20/2014 Estimated Date of Delivery Comme nts Yes 07/15/2025 Resolved Problems Problem Noted Date Diagnosed Date Resolved Date Cellulitis 01/26/2022 01/24/2023 Encounters Date Type Department Care Team Description 12/27/2024 10:31 AM EXTRUSION OPERATOR - 12/27/2024 2:10 PM [facility] Emergency [facility] Emergency Room [address] [place] [address] Aaron Melissa MD Back Pain Discharge Disposition: Home or Self Care (Routine Discharge) 12/27/2024 Travel 11/25/2024 7:55 PM EXTRUSION OPERATOR - 11/25/2024 11:22 PM [facility] Emergency [facility] Emergency Room [address] [place] [address] Aaron Melissa MD Abdominal Pain ; Blood In Stool Discharge Disposition: Home or Self Care (Routine Discharge) from Last 3 Months Immunizations Name Administration Dates Next Due Dtap [...] move on to questions 3-9 1 10/08/2022 Estimated Date of Delivery Comme nts Yes 07/15/2025 Sex and Gender Information Value Date Recorded Sex Assigned at Female 11/25/2024 8:35 PM EXTRUSION OPERATOR Legal Sex Female 7:16 PM CDT Gender Identity Not on file Sexual Orientation Not on file Last Filed Vital Signs Vital Sign Reading Time Taken Comments Blood Pressure 105/68 12/27/2024 2:10 PM EXTRUSION OPERATOR Pulse 70 12/27/2024 2:10 PM EXTRUSION OPERATOR Temperature 36.3 C (97.3 F) 12/27/2024 2:10 PM EXTRUSION OPERATOR Respiratory Rate 18 12/27/2024 2:10 PM EXTRUSION OPERATOR Oxygen Saturation 99% 12/27/2024 2:10 PM EXTRUSION OPERATOR Inhaled Oxygen Concentration - - Weight 74.8 kg (164 lb 14.5 oz) 025 10:39 AM EXTRUSION OPERATOR Height 160 cm (5' 3) 12/27/2024 10:39 AM EXTRUSION OPERATOR Body Mass Index 29.21 12/27/2024 10:39 AM EXTRUSION OPERATOR Plan of Treatment Health Maintenance Due Date Last Done Comments DTaP, Tdap and Td Vaccines (7 - Td or Tdap) 05/07/2022 05/07/2012, 05/29/2006, 03/23/2002, Additional history exists Annual Physical 01/25/2024 01/24/2023 COVID-19 Vaccine ( season) 2024 05/01/2021, 04/03/2021 Influenza Adult (#1) 2024 01/20/2020, 09/30/2014, 11/20/2013, Additional history exists PHQ-2 (Physician Isaban) 11/11/2024 Cervical Cancer Screening Pap Smear (Age 21 to 29) Every 3 Years 12/03/2027 12/03/2024, 10/08/2023, 10/08/2023, Additional history exists Cervical Cancer Screening 12/03/2027 Hepatitis B Vaccines Completed 09/22/2001, 02/18/2001, 2000 Pneumococcal Vaccine: Pediatrics (0 to 5 Years) and At-Risk Patients (6 to 64 Years) Aged Out 01/23/2002, 10/04/2001, 06/17/2001, Additional history exists No longer eligible based on patient's age to complete this topic HPV Vaccines Completed 07/24/2011, 01/10, 12/22/2010 Meningococcal Vaccine Completed 06/05/2018, 012 Hepatitis C Completed 2024, 12/12, 03/20/2022, Additional history exists Meningococcal B Vaccine Aged Out No l onger eligible based on patient's age to complete this topic RSV Immunization or 60+ Years (No Doses Required) Completed RSV Immunizations Under 20 Months Aged Out No longer eligible based on patient's age to complete this topic Procedures Procedure Name Priority Date/Time Associated Diagnosis Comments INFLUENZA A & B STAT 12/27/2024 12:45 PM EXTRUSION OPERATOR CORONAVIRUS (COVID 19) STAT 12:45 PM EXTRUSION OPERATOR URINALYSIS, AUTO, COMPLETE STAT 12/27/2024 11:11 AM EXTRUSION OPERATOR COMPREHENSIVE METABOLIC PANEL STAT 12/27/2024 10:50 AM EXTRUSION OPERATOR CBC W/DIFF AUTOMATED STAT 12/27/2024 10:50 AM EXTRUSION OPERATOR URINALYSIS, AUTO, COMPLETE STAT 11/25/2024 9:00 PM EXTRUSION OPERATOR HCG QUANT (SERUM)-CHORIONIC GONADOTROPIN STAT 11/25/2024 8:10 PM EXTRUSION OPERATOR COMPREHENSIVE METABOLIC PANEL STAT 11/25/2024 8:10 PM EXTRUSION OPERATOR CBC W/DIFF AUTOMATED STAT 11/25/2024 8:10 PM EXTRUSION OPERATOR CYTOPATH CERV/VAG THIN LAYER Routine 01/24/2023 8:02 AM CDT from Last 3 Months or Most Recently Relevant to Health Maintenance Results * CORONAVIRUS (COVID-19) MOLECULAR (12/27/2024 12:45 PM EXTRUSION OPERATOR) CORONAVIRUS SARS COV 2 RNA NEGATIVE NEGATIVE 12/27/2024 1:25 PM EXTRUSION OPERATOR [facility] Comment: NEGATIVE RESULTS DO NOT RULE OUT COVID 19 AND SHOULD NOT BE USED THE SOLE BASIS FOR TREATMENT OR PATIENT MANAGEMENT DECISIONS, INCLUDING INFECTION CONTROL DECISIONS. NEGATIVE RESULTS SHOULD BE CONSIDERED IN THE CONTEXT OF A PATIENT'S RECENT EXPOSURES, HISTORY AND THE PRESENCE OF CLINICAL SIGNS AND SYMPTOMS CONSISTENT WITH COVID 19. THE ID NOW COVID-19 2.0 TEST HAS BEEN AUTHORIZED BY THE FDA UNDER EAU FOR USE BY AUTHORIZED LABORATORIES. PERFORMED BY NUCLEIC ACID AMPLIFICATION FOR MOLECULAR QUALITATIVE DETECTION OF SARS-COV-2. SPECIMEN TYPE NASAL 12/27/2024 12:46 PM EXTRUSION OPERATOR [facility] NASOPHARYNGEAL SWAB / Unknown 12/27/2024 12:45 PM EXTRUSION OPERATOR us Aaron Melissa MD MICROBIOLOGY - GENERAL ORDERABLE S Final Result [facility] [address] [place] [address], [place] [phone] * INFLUENZA A & B (12/27/2024 12:45 PM EXTRUSION OPERATOR) SPECIMEN TYPE NASOPHARYNGEAL SWAB 12/27/2024 12:48 PM EXTRUSION OPERATOR [facility] INFLUENZA A NEGATIVE NEGATIVE 12/27/2024 1:22 PM EXTRUSION OPERATOR [facility] INFLUENZA B NEGATIVE NEGATIVE 12/27/2024 1:22 PM EXTRUSION OPERATOR [facility] NASAL STRUCTURE / Unknown 12/27/2024 12:45 PM EXTRUSION OPERATOR us Aaron Melissa MD MICROBIOLOGY - GENERAL ORDERABLE S Final Result [facility] [address] [place] [address], [place] [phone] * URINALYSIS, AUTO, COMPLETE (12/27/2024 11:11 AM EXTRUSION OPERATOR) Only the most recent of2 resultswithin the time period is included. COLOR (U) YELLOW 12/27/2024 11:24 AM [facility] TRANSPARENCY HAZY 12/27/2024 11:24 AM [facility] SPECIFIC GRAVITY (U) 1.020 1.000 - 1.030 12/27/2024 11:24 AM [facility] U PH 8.5 5.0 - 9.0 12/27/2024 11:24 AM [facility] LEUKOCYTES (U) NEGATIVE NEGATIVE 12/27/2024 11:24 AM [facility] NITRITES NEGATIVE NEGATIVE 12/27/2024 11:24 AM [facility] PROTEIN RANDOM (U) NEGATIVE NEGATIVE 12/27/2024 11:24 AM [facility] GLUCOSE (U) NEGATIVE NEGATIVE 12/27/2024 11:24 AM [facility] KETONES MG/DL (U) NEGATIVE NEGATIVE 12/27/2024 11:24 AM [facility] BILIRUBIN (U) NEGATIVE NEGATIVE 12/27/2024 11:24 AM [facility] BLOOD (U) NEGATIVE NEGATIVE 12/27/2024 11:24 AM [facility] WBC/HPF 0-5 0 - 5 /HPF 12/27/2024 11:24 AM [facility] RBC/HPF 0-5 0 - 5 /HPF 12/27/2024 11:24 AM [facility] EPI/HPF RARE /HPF 12/27/2024 11:24 AM [facility] BACTERIA (U) MODERATE /HPF 12/27/2024 11:24 AM [facility] URINE SPECIMEN OBTAINED BY CLEAN CATCH PROCEDURE / Unknown 12/27/2024 11:11 AM EXTRUSION OPERATOR Aaron Melissa MD URINE ORDERABLES Final Result [facility] [address] [place] [address], [place] [phone] * (ABNORMAL) COMPREHENSIVE METABOLIC PANEL (12/27/2024 10:50 AM EXTRUSION OPERATOR) Only the most recent of2 resultswithin the time period is included. GLUCOSE 89 70 - 99 MG/DL 12/27/2024 11:32 AM [facility] BUN 12 7 - 18 MG/DL 12/27/2024 11:32 AM [facility] CREATININE S/P/B 0.43(L) 0.55 - 1.02 MG/DL 12/27/2024 11:32 AM [facility] SODIUM S/P/B 136 136 - 145 MMOL/L 12/27/2024 11:32 AM [facility] POTASSIUM S/P/B 3.5 3.5 - 5.1 MMOL/L 12/27/2024 11:32 AM [facility] CHLORIDE S/P/B 102 100 - 108 MMOL/L 12/27/2024 11:32 AM [facility] CO2 23.2 21 - 32 MMOL/L 12/27/2024 11:32 AM [facility] CALCIUM S/P/B 8.5 8.5 - 10.1 MG/DL 12/27/2024 11:32 AM [facility] BILIRUBIN TOTAL S/P/B 0.3 0.2 - 1.2 MG/DL 12/27/2024 11:32 AM [facility] TOTAL PROTEIN S/P/B 6.0(L) 6.4 - 8.2 G/DL 12/27/2024 11:32 AM [facility] ALBUMIN S/P/B 3.0(L) 3.4 - 5.0 G/DL 12/27/2024 11:32 AM [facility] AST 14(L) 15 - 37 U/L 12/27/2024 11:32 AM [facility] ALT 28 14 - 55 U/L 12/27/2024 11:32 AM [facility] ALKALINE PHOSPHATASE S/P/B 36(L) 50 - 136 U/L 12/27/2024 11:32 AM [facility] ANION GAP 10.8 5 - 15 MMOL/L 12/27/2024 11:32 AM [facility] BUN CREATININE RATIO 27.9(H) 6 - 26 12/27/2024 11:32 AM [facility] A/G RATIO 1.0 1.0 - 2.0 RATIO 12/27/2024 11:32 AM [facility] GFR ESTIMATE >90 >90 ML/MIN/1.7 3 M2 12/27/2024 11:32 AM [facility] Comment: NOTE: eGFR is not calculated for patients <18 years of age. This is an estimated GFR calculation using the new CKD EPI creatinine equation without race and so does not require a correction factor for race. This estimated GFR should not be used for calculating drug doses. 12/27/2024 10:5 0 AM EXTRUSION OPERATOR us Aaron Melissa MD LABORATORY Final Result [facility] [address] [place] [address], * (ABNORMAL) CBC W/DIFF AUTOMATED (12/27/2024 10:50 AM EXTRUSION OPERATOR) Only the most recent of2 resultswithin the time period is included. WBC 6.64 4.4 - 11.0 x10'3/uL 12/27/2024 11:16 AM [facility] RBC 3.76(L) 4.50 - 5.10 x10'6/uL 12/27/2024 11:16 AM [facility] HGB 11.1(L) 12.3 - 15.3 G/DL 12/27/2024 11:16 AM [facility] HCT 33.4(L) 35.9 - 44.6 % 12/27/2024 11:16 AM [facility] MCV 88.8 80.0 - 96.0 FL 12/27/2024 11:16 AM [facility] MCH 29.5 25.3 - 30.9 PG 12/27/2024 11:16 AM [facility] MCHC 33.2 31.0 - 34.1 G/DL 12/27/2024 11:16 AM [facility] RDW 13.7 12.4 - 15.1 % 12/27/2024 11:16 AM [facility] PLT 132(L) 151 - 353 x10'3/uL 12/27/2024 11:16 AM [facility] MPV 12.6(H) 9.6 - 12.0 FL 12/27/2024 11:16 AM [facility] RBC MORPHOLOGY NORMAL 12/27/2024 11:16 AM [facility] PLT MORPH. NORMAL 12/27/2024 11:16 AM [facility] WBC MORPHOLOGY NORMAL 12/27/2024 11:16 AM [facility] LYMPHOCYTES % 20.9 15.8 - 45.0 % 12/27/2024 11:16 AM [facility] NEUTROPHILS % 71.3 42.1 - 71.9 % 12/27/2024 11:16 AM [facility] MONOCYTES % 6.5 5.7 - 12.5 % 12/27/2024 11:16 AM [facility] EOSINOPHILS 0.5 0.0 - 5.6 % 12/27/2024 11:16 AM [facility] BASOPHILS 0.3 0.0 - 1.3 % 12/27/2024 11:16 AM [facility] ABS. NEUTROPHILS 4.74 1.40 - 6.00 x10'3/uL 12/27/2024 11:16 AM [facility] IMMATURE GRANS % 0.5 0.0 - 0.5 % 12/27/2024 11:16 AM [facility] ABS. LYMPHOCYTES 1.39 0.80 - 4.70 x10'3/uL 12/27/2024 11:16 AM [facility] 12/27/2024 10:5 0 AM EXTRUSION OPERATOR us Aaron Melissa MD LABORATORY Final Result [facility] [address] [place] [address], * (ABNORMAL) HCG QUANTITATIVE SERUM (11/25/2024 8:10 PM EXTRUSION OPERATOR) HCG QUANTITATIVE 40,362(H) 0 - 6 MIU/ML 11/25/2024 8:59 PM EXTRUSION OPERATOR [facility] Comment: WEEKS OF REFERENCE RANGES NON- FEMALE 0-6 0.2 - 1 5 - 50 1 - 2 50 - 500 2 - 3 100 - 5000 3 - 4 500 - 10,000 4 - 5 1000 - 50,000 5 - 6 10,000 - 100,000 6 - 8 15,000 - 200,000 2 - 3 MONTHS 10,000 - 100,000 11/25/2024 8:10 PM EXTRUSION OPERATOR Aaron Melissa MD LABORATORY Final Result [facility] [address] [place] [address], * Cytopath Cerv/Vag Thin Layer (01/24/2023 8:02 AM CDT) THIN PREP PAP [address] [address] Department of Pathology Pathology Report CERVICAL/VAGINAL PAP SMEAR REPORT Name: ANGELA KIRKLAND Age: 2 2000 (Age: 22) Location: [facility] Sex: F Collected Date: 01/24/2023 [facility] #: [id number] Date Received: 01/28/2023 Date Reported: 02/04/2023 Provider: FIONA PARKINSON MD INTERPRETATION ABNORMAL RESULT CERVICAL/ENDOCERVIC AL: SATISFACTORY FOR EVALUATION. ENDOCERVICAL/TRANSF ORMATION ZONE COMPONENT PRESENT. ATYPICAL SQUAMOUS CELLS OF UNDETERMINED SIGNIFICANCE. ATYPICAL SQUAMOUS CELLS-CANNOT EXCLUDE HIGH-GRADE SQUAMOUS INTRAEPITHELIAL LESION. POSITIVE FOR HIGH RISK HPV. The FDA approved Aptima HPV assay is an in vitro nucleic acid amplification test for the qualitative detection of E6/E7 viral messenger RNA (mRNA) from 14 high-risk types of human papillomavirus (HPV) in cervical specimens. The high-risk HPV types detected by the assay include: 16,18,31,33,35,39,4 5,51,52,56,58,59,66 , and 68. Electronically Signed Out Itzel B. Grotepas, MRHEA Rubio (ASCP) CLINICAL HISTORY Z00.00 R87.610 R87.810 HX ASCUS, HPV POSITIVE ThinPrep Pap Test with HR HPV testing in patient > 21 years with ASC-US diagnosis. Date of Last Menstrual Period: 01/02/23 Menstrual Status: Regular SPECIMEN SUBMITTED CERVICAL/ENDOCERVIC AL Specimen Received:1 Thin Prep Vial, Image Assisted Pap (SMD) Please note: The Pap smear is not a diagnostic test. It is a screening test. Negative results on combined screening (Pap test and HPV-DNA) have a high negative predictive value (99.1-100 percent) for cervical cancer. The pap test is not effective in detecting cervical adenocarcinoma. [facility] 01/24/2023 8:02 AM CDT 01/28/2023 8:02 AM CDT Comment:CERVICAL/ENDOCERVICA L Fiona Parkinson MD PATHOLOGY/CYTOLO GY ORDERABLES Final Result Performing Organization Address City/State/[facility] Co de Phone Number [facility] [address] [place] [address], from Last 3 Months or Most Recently Relevant to Health Maintenance [place] [address] [place] [address] Advance Directives * Full Code (Latest Code Status on File) Date Activated Date Inactivated Comments 01/26/2022 8:37 AM 01/28/2022 4:20 PM * Full Code Date Activated Date Inactivated Comments 07/07/2021 3:58 PM 07/08/2021 4:29 PM Care Teams Corporate Bond Trader Relationship Specialty Start Date End Date Neda Carranza, MIKE PCP - General Nurse Practitioner Family 11/25/24
--- OUTSIDE RECORDS SUMMARY | 2025-01-27 00:01 | XMS_ITS | Encounter Summary ---
Author Organization [facility] - [facility] Address [address] [place] [address] Care Team Providers Care Gathering Worker Name Role Phone Fiona Parkinson MD Primary Care Pr ovider Unavailable Jovanny Suazo MD Primary Care Provider None, Provider Primary Care Provider Unavaila Neda Escoto Primary Care Provider [phone] Encounter Details Date Type Department Care Team (Late st Contact Info) Description 02/01/2023 Personal Cell Scienceshart Message Enc [facility] Multispecialty Care - [address] [place] [address] Fiona Parkinson MD Question regarding [...] Sex Assigned at Female 11/25/2024 8:35 PM COOK DESSERT Legal Sex Female 7:16 PM CDT Gender [...] Rule Out 12/27/2024 12/27/2024 12/27/2024 1:26 PM COOK DESSERT Assessment Noted Time PHQ-9 Depression Total Score: 14 022 1:17 PM COOK DESSERT documented as of this encounter Care Teams Gathering Worker Relationship Specialty Start Date End Date Fiona Parkinson MD PCP - General FAMILY PRACTICE 10/08/22 04/14/23 Jovanny Suazo MD [address] [address] PCP - General INTERNAL MEDICINE 04/15/23 06/27/24 None, Provider, PCP - General UNKNOWN PHYSICIAN SPECIALTY 06/28/24 11/24/24 Neda Carranza, CAPACITY MANAGEMENT SPECIALIST PCP - General Nurse Practitioner Family 11/25/24 documented as of this encounter
[2025-01-27 00:38] LABS: Basophils Percent Auto 0.1 % (0.2-1.2); Eosinophils Absolute Auto 0.1 K/mm3 (0-0.3); Eosinophils Percent Auto 0.5 % (0-4.4); Hematocrit 37.7 % (37.0-47.0); Hemoglobin 12.5 g/dL (12.0-15.0); Immature Granulocyte Absolute 0.04 K/mm3 (0.00-0.031); Immature Granulocyte Percent A 0.4 % (0-0.5); Lymphocytes Absolute Auto 1.89 K/mm3 (0.9-3.2); Lymphocytes Percent Auto 19.6 % (18.3-44.2); Mean Corpuscular HGB Conc 33.2 g/dl (32-36); Mean Corpuscular Hemoglobin 29.6 pg (26-34); Mean Corpuscular Volume 89.1 fl (80-100); Mean Platelet Volume 12.4 fl (7.4-10.4); Monocytes Absolute Auto 0.5 K/mm3 (0.1-0.6); Neutrophils Absolute Auto 7.2 K/mm3 (1.3-6.7); Neutrophils Percent Auto 74.4 % (45.5-73.1); Platelet Count Result 182 k/mm3 (150-375); Prothrombin Time 13.1 Seconds (11.1-14.7); Red Blood Count 4.23 M/mm3 (4.2-5.4); Red Cell Distribution Width 13.2 % (11.5-14.5); White Blood Count 9.6 K/mm3 (4.5-10.0)
[2025-01-27 00:39] LABS: Partial Thromboplastin Time 28.2 Seconds (22.3-36.8)
[2025-01-27 00:44] LABS: Alanine Aminotransferase 28 U/L (6-35); Alkaline Phosphatase 49 U/L (38-126); Anion Gap 10 mmol/L (4-12); Aspartate Amino Transferase 21 U/L (14-36); Bilirubin,Total 0.3 mg/dL (0.2-1.3); Blood Urea Nitrogen 14 mg/dL (7-17); Calcium 9.6 mg/dL (8.4-10.2); Carbon Dioxide 23 mmol/L (22-30); Chloride 104 mmol/L (98-107); Estimated Glomerular Filt Rate > 60; Glucose 101 mg/dL (65-110); Potassium 3.5 mmol/L (3.4-5.0); Sodium 137 mmol/L (137-145)
[2025-01-27 01:00] LABS: Beta HCG Quantitative 565.27 mIU/ML
--- OUTSIDE RECORDS SUMMARY | 2025-01-27 01:05 | XMS_ITS | Encounter Summary ---
Author Organization [facility] - [facility] Address [address] [place] [address] Care Team Providers Care Accredited Legal Secretary Name Role Phone Fiona Parkinson MD Primary Care Pr ovider Unavailable Jovanny Suazo MD Primary Care Provider [phone] None, Provider Primary Care Provider Unavaila Neda Escoto Primary Care Provider [phone] Encounter Details Date Type Department Care Team (Late st Contact Info) Description 02/01/2023 Easy Icehart Message Enc [facility] Medical Group Multispecialty Care - [address] [place] [address] Fiona Parkinson MD Question regarding [...] Sex Assigned at Female 11/25/2024 8:35 PM CARTOGRAPHY TEACHER Legal Sex Female 7:16 PM CDT Gender [...] Rule Out 12/27/2024 12/27/2024 12/27/2024 1:26 PM CARTOGRAPHY TEACHER Assessment Noted Time PHQ-9 Depression Total Score: 14 022 1:17 PM CARTOGRAPHY TEACHER documented as of this encounter Care Teams Accredited Legal Secretary Relationship Specialty Start Date End Date Fiona Parkinson MD PCP - General FAMILY PRACTICE 10/08/22 04/14/23 Jovanny Suazo MD [address] [address] PCP - General INTERNAL MEDICINE 04/15/23 06/27/24 None, Provider, PCP - General UNKNOWN PHYSICIAN SPECIALTY 06/28/24 11/24/24 Neda Carranza, REDUCTION FURNACE OPERATOR PCP - General Nurse Practitioner Family 11/25/24 documented as of this encounter
--- OUTSIDE RECORDS SUMMARY | 2025-01-27 01:05 | XMS_ITS | Encounter Summary ---
Author Organization [facility] - [facility] Address [address] [place] [address] Care Team Providers Care Clinical Documentation Spec Name Role Phone Fiona Parkinson MD Primary Care Pr ovider Unavailable Jovanny Suazo MD Primary Care Provider [phone] None, Provider Primary Care Provider Unavaila Neda Escoto Primary Care Provider [phone] Encounter Details Date Type Department Care Team (Late st Contact Info) Description 01/25/2023 MyChart Message Enc [facility] Multispecialty Care - [address] [place] [address] Fiona Parkinson MD STD screening [...] Sex Assigned at Female 11/25/2024 8:35 PM BRAIDING OPERATOR Legal Sex Female 7:16 PM CDT [...] Rule Out 12/27/2024 12/27/2024 12/27/2024 1:26 PM BRAIDING OPERATOR Assessment Noted Time PHQ-9 Depression Total Score: 14 022 1:17 PM BRAIDING OPERATOR documented as of this encounter Care Teams Clinical Documentation Spec Relationship Specialty Start Date End Date Fiona Parkinson MD PCP - General FAMILY PRACTICE 10/08/22 04/14/23 Jovanny Suazo MD [address] [address] PCP - General INTERNAL MEDICINE 04/15/23 06/27/24 None, ProviderMD PCP - General UNKNOWN PHYSICIAN SPECIALTY 06/28/24 11/24/24 Neda Carranza, AMERICAN SIGN LANGUAGE INTERPRETER PCP - General Nurse Practitioner Family 11/25/24 documented as of this encounter
--- OUTSIDE RECORDS SUMMARY | 2025-01-27 01:06 | XMS_ITS | Clinical Summary ---
Author Organization [facility] Address [facility] [place] [address] Care Team Providers Care Social Work Msw Name Role Phone Neda Carranza STUDENT AMBASSADOR Primary Care Provider [phone] Allergies Active Allergy Reactions Criticality Noted Date [...] Department Care Team Description 12/27/2024 10:31 AM LUMBER GRADER - 12/27/2024 2:10 PM [facility] Emergency [facility] Emergency Room [address] [place] [address] Aaron Melissa MD Back Pain Discharge Disposition: Home or Self Care (Routine Discharge) 12/27/2024 Travel 11/25/2024 7:55 PM LUMBER GRADER - 11/25/2024 11:22 PM [facility] Emergency [facility] Emergency Room [address] [place] [address] Aaron Melissa MD Abdominal Pain ; Blood [...] Sex Assigned at Female 11/25/2024 8:35 PM LUMBER GRADER Legal Sex Female 7:16 PM CDT Gender Identity Not on file Sexual Orientation Not on file Last Filed Vital Signs Vital Sign Reading Time Taken Comments Blood Pressure 105/68 12/27/2024 2:10 PM LUMBER GRADER Pulse 70 12/27/2024 2:10 PM LUMBER GRADER Temperature 36.3 C (97.3 F) 12/27/2024 2:10 PM LUMBER GRADER Respiratory Rate 18 12/27/2024 2:10 PM LUMBER GRADER Oxygen Saturation 99% 12/27/2024 2:10 PM LUMBER GRADER Inhaled Oxygen Concentration - - Weight 74.8 kg (164 lb 14.5 oz) 025 10:39 AM LUMBER GRADER Height 160 cm (5' 3) 12/27/2024 10:39 AM LUMBER GRADER Body Mass Index 29.21 12/27/2024 10:39 AM LUMBER GRADER Plan of Treatment Health Maintenance Due Date Last Done Comments DTaP, Tdap and Td Vaccines (7 - Td or Tdap) 05/07/2022 05/07/2012, 05/29/2006, 03/23/2002, Additional history exists Annual Physical 01/25/2024 01/24/2023 COVID-19 Vaccine ( season) 2024 05/01/2021, 04/03/2021 Influenza Adult (#1) 2024 01/20/2020, 09/30/2014, 11/20/2013, Additional history exists PHQ-2 (Physician [place]) 11/11/2024 Cervical Cancer Screening Pap Smear (Age [...] A & B STAT 12/27/2024 12:45 PM LUMBER GRADER CORONAVIRUS (COVID 19) STAT 12:45 PM LUMBER GRADER URINALYSIS, AUTO, COMPLETE STAT 12/27/2024 11:11 AM LUMBER GRADER COMPREHENSIVE METABOLIC PANEL STAT 12/27/2024 10:50 AM LUMBER GRADER CBC W/DIFF AUTOMATED STAT 12/27/2024 10:50 AM LUMBER GRADER URINALYSIS, AUTO, COMPLETE STAT 11/25/2024 9:00 PM LUMBER GRADER HCG QUANT (SERUM)-CHORIONIC GONADOTROPIN STAT 11/25/2024 8:10 PM LUMBER GRADER COMPREHENSIVE METABOLIC PANEL STAT 11/25/2024 8:10 PM LUMBER GRADER CBC W/DIFF AUTOMATED STAT 11/25/2024 8:10 PM LUMBER GRADER CYTOPATH CERV/VAG THIN LAYER Routine 01/24/2023 8:02 AM CDT from Last 3 Months or Most Recently Relevant to Health Maintenance Results * CORONAVIRUS (COVID-19) MOLECULAR (12/27/2024 12:45 PM LUMBER GRADER) CORONAVIRUS SARS COV 2 RNA NEGATIVE NEGATIVE 12/27/2024 1:25 PM LUMBER GRADER [facility] Comment: NEGATIVE RESULTS DO [...] SARS-COV-2. SPECIMEN TYPE NASAL 12/27/2024 12:46 PM LUMBER GRADER [facility] NASOPHARYNGEAL SWAB / Unknown 12/27/2024 12:45 PM LUMBER GRADER us Aaron Melissa MD MICROBIOLOGY - GENERAL ORDERABLE S Final Result [facility] [address] [place] [address], [place] [phone] * INFLUENZA A & B (12/27/2024 12:45 PM LUMBER GRADER) SPECIMEN TYPE NASOPHARYNGEAL SWAB 12/27/2024 12:48 PM LUMBER GRADER [facility] INFLUENZA A NEGATIVE NEGATIVE 12/27/2024 1:22 PM LUMBER GRADER [facility] INFLUENZA B NEGATIVE NEGATIVE 12/27/2024 1:22 PM LUMBER GRADER [facility] NASAL STRUCTURE / Unknown 12/27/2024 12:45 PM LUMBER GRADER us Aaron Melissa MD MICROBIOLOGY - GENERAL ORDERABLE S Final Result [facility] [address] [place] [address], [place] [phone] * URINALYSIS, AUTO, COMPLETE (12/27/2024 11:11 AM LUMBER GRADER) Only the most recent of2 resultswithin the time period is included. COLOR (U) YELLOW 12/27/2024 11:24 AM [facility] TRANSPARENCY HAZY 12/27/2024 11:24 AM [facility] SPECIFIC GRAVITY (U) 1.020 1.000 - 1.030 12/27/2024 11:24 AM [facility] U PH 8.5 5.0 - 9.0 12/27/2024 11:24 AM [facility] LEUKOCYTES (U) NEGATIVE NEGATIVE 12/27/2024 11:24 AM [facility] NITRITES NEGATIVE NEGATIVE 12/27/2024 11:24 AM [facility] PROTEIN RANDOM (U) NEGATIVE NEGATIVE 12/27/2024 11:24 AM [facility] GLUCOSE (U) NEGATIVE NEGATIVE 12/27/2024 11:24 AM [facility] KETONES MG/DL (U) NEGATIVE NEGATIVE 12/27/2024 11:24 AM [facility] BILIRUBIN (U) NEGATIVE NEGATIVE 12/27/2024 11:24 AM [facility] BLOOD (U) NEGATIVE NEGATIVE 12/27/2024 11:24 AM [facility] WBC/HPF 0-5 0 - 5 /HPF 12/27/2024 11:24 AM [facility] RBC/HPF 0-5 0 - 5 /HPF 12/27/2024 11:24 AM [facility] EPI/HPF RARE /HPF 12/27/2024 11:24 AM [facility] BACTERIA (U) MODERATE /HPF 12/27/2024 11:24 AM [facility] URINE SPECIMEN OBTAINED BY CLEAN CATCH PROCEDURE / Unknown 12/27/2024 11:11 AM LUMBER GRADER Aaron Melissa MD URINE ORDERABLES Final Result [facility] [address] [place] [address], [place] [phone] * (ABNORMAL) COMPREHENSIVE METABOLIC PANEL (12/27/2024 10:50 AM LUMBER GRADER) Only the most recent of2 resultswithin the time period is included. GLUCOSE 89 70 - 99 MG/DL 12/27/2024 11:32 AM [facility] BUN 12 7 - 18 MG/DL 12/27/2024 11:32 AM [facility] CREATININE S/P/B 0.43(L) 0.55 - 1.02 MG/DL 12/27/2024 11:32 AM [facility] SODIUM S/P/B 136 136 - 145 MMOL/L 12/27/2024 11:32 AM [facility] POTASSIUM S/P/B 3.5 3.5 - 5.1 MMOL/L 12/27/2024 11:32 AM [facility] CHLORIDE S/P/B 102 100 - 108 MMOL/L 12/27/2024 11:32 AM [facility] CO2 23.2 21 - 32 MMOL/L 12/27/2024 11:32 AM [facility] CALCIUM S/P/B 8.5 8.5 - 10.1 MG/DL 12/27/2024 11:32 AM [facility] BILIRUBIN TOTAL S/P/B 0.3 0.2 - 1.2 MG/DL 12/27/2024 11:32 AM [facility] TOTAL PROTEIN S/P/B 6.0(L) 6.4 - 8.2 G/DL 12/27/2024 11:32 AM [facility] ALBUMIN S/P/B 3.0(L) 3.4 - 5.0 G/DL 12/27/2024 11:32 AM [facility] AST 14(L) 15 - 37 U/L 12/27/2024 11:32 AM [facility] ALT 28 14 - 55 U/L 12/27/2024 11:32 AM [facility] ALKALINE PHOSPHATASE S/P/B 36(L) 50 - 136 U/L 12/27/2024 11:32 AM [facility] ANION GAP 10.8 5 - 15 MMOL/L 12/27/2024 11:32 AM [facility] BUN CREATININE RATIO 27.9(H) 6 - 26 12/27/2024 11:32 AM [facility] A/G RATIO 1.0 1.0 - 2.0 RATIO 12/27/2024 11:32 AM [facility] GFR ESTIMATE >90 >90 ML/MIN/1.7 3 M2 12/27/2024 11:32 AM [facility] Comment: NOTE: eGFR is not calculated for patients <18 years of age. This is an estimated GFR calculation using the new CKD EPI creatinine equation without race and so does not require a correction factor for race. This estimated GFR should not be used for calculating drug doses. 12/27/2024 10:5 0 AM LUMBER GRADER us Aaron Melissa MD LABORATORY Final Result [facility] [address] [place] [address], * (ABNORMAL) CBC W/DIFF AUTOMATED (12/27/2024 10:50 AM LUMBER GRADER) Only the most recent of2 resultswithin the time period is included. WBC 6.64 4.4 - 11.0 x10'3/uL 12/27/2024 11:16 AM [facility] RBC 3.76(L) 4.50 - 5.10 x10'6/uL 12/27/2024 11:16 AM [facility] HGB 11.1(L) 12.3 - 15.3 G/DL 12/27/2024 11:16 AM [facility] HCT 33.4(L) 35.9 - 44.6 % 12/27/2024 11:16 AM [facility] MCV 88.8 80.0 - 96.0 FL 12/27/2024 11:16 AM [facility] MCH 29.5 25.3 - 30.9 PG 12/27/2024 11:16 AM [facility] MCHC 33.2 31.0 - 34.1 G/DL 12/27/2024 11:16 AM [facility] RDW 13.7 12.4 - 15.1 % 12/27/2024 11:16 AM [facility] PLT 132(L) 151 - 353 x10'3/uL 12/27/2024 11:16 AM [facility] MPV 12.6(H) 9.6 - 12.0 FL 12/27/2024 11:16 AM [facility] RBC MORPHOLOGY NORMAL 12/27/2024 11:16 AM [facility] PLT MORPH. NORMAL 12/27/2024 11:16 AM [facility] WBC MORPHOLOGY NORMAL 12/27/2024 11:16 AM [facility] LYMPHOCYTES % 20.9 15.8 - 45.0 % 12/27/2024 11:16 AM [facility] NEUTROPHILS % 71.3 42.1 - 71.9 % 12/27/2024 11:16 AM [facility] MONOCYTES % 6.5 5.7 - 12.5 % 12/27/2024 11:16 AM [facility] EOSINOPHILS 0.5 0.0 - 5.6 % 12/27/2024 11:16 AM [facility] BASOPHILS 0.3 0.0 - 1.3 % 12/27/2024 11:16 AM [facility] ABS. NEUTROPHILS 4.74 1.40 - 6.00 x10'3/uL 12/27/2024 11:16 AM [facility] IMMATURE GRANS % 0.5 0.0 - 0.5 % 12/27/2024 11:16 AM [facility] ABS. LYMPHOCYTES 1.39 0.80 - 4.70 x10'3/uL 12/27/2024 11:16 AM [facility] 12/27/2024 10:5 0 AM LUMBER GRADER us Aaron Melissa MD LABORATORY Final Result [facility] [address] [place] [address], * (ABNORMAL) HCG QUANTITATIVE SERUM (11/25/2024 8:10 PM LUMBER GRADER) HCG QUANTITATIVE 40,362(H) 0 - 6 MIU/ML 11/25/2024 8:59 PM LUMBER GRADER [facility] Comment: WEEKS OF REFERENCE RANGES NON- FEMALE 0-6 0.2 - 1 5 - 50 1 - 2 50 - 500 2 - 3 100 - 5000 3 - 4 500 - 10,000 4 - 5 1000 - 50,000 5 - 6 10,000 - 100,000 6 - 8 15,000 - 200,000 2 - 3 MONTHS 10,000 - 100,000 11/25/2024 8:10 PM LUMBER GRADER Aaron Melissa MD LABORATORY Final Result [facility] [address] [place] [address], * Cytopath Cerv/Vag Thin Layer (01/24/2023 8:02 AM CDT) THIN PREP PAP [address] [address] Department of Pathology Pathology Report CERVICAL/VAGINAL PAP SMEAR REPORT Name: ANGELA KIRKLAND Age: 2 2000 (Age: 22) Location: [facility] Sex: F Collected Date: 01/24/2023 [facility] #: [id number] Date Received: 01/28/2023 Date Reported: 02/04/2023 Provider: [...] is not effective in detecting cervical adenocarcinoma. [facility] 01/24/2023 8:02 AM CDT 01/28/2023 8:02 AM CDT Comment:CERVICAL/ENDOCERVICA L Fiona Parkinson MD PATHOLOGY/CYTOLO GY ORDERABLES Final Result Performing Organization Address City/State/[facility] Co de Phone Number [facility] [address] [place] [address], from Last 3 Months or Most Recently Relevant to Health Maintenance Insurance [address] [address] Advance Directives * Full Code (Latest Code Status on File) Date Activated Date Inactivated Comments 01/26/2022 8:37 AM 01/28/2022 4:20 PM * Full Code Date Activated Date Inactivated Comments 07/07/2021 3:58 PM 07/08/2021 4:29 PM Care Teams Social Work Msw Relationship Specialty Start Date End Date Neda Carranza, MIKE PCP - General Nurse Practitioner Family 11/25/24
--- OUTSIDE RECORDS SUMMARY | 2025-01-27 01:06 | XMS_ITS | Clinical Summary ---
Author Organization [facility] Address [address] [place] [address] Phone Care Team Providers Care Police Shift Commander Name Role Phone Katie Kellogg MD Primary Care Provider [phone] Allergies Active Allergy Reactions Criticality Noted Date Comments Sulfa (Sulfonamide Antibiotics) Hives High 01/2010 Medications citalopram (CELEXA) 20 mg Oral tablet Take 20 mg by mouth daily at bedtime. Active methylphenidate ER 24hr (CONCERTA) 18 mg Oral tablet Take 36 mg by mouth daily theology teacher. Active Melatonin 1 mg Oral Tab Take by mouth. Active LACTOBACILLUS/FO S/PECTIN (PROBIOTIC COMPLEX ORAL) Take by mouth. Active Social History Tobacco Use Types Packs/Day Years Used Date Smoking Tobacco: Never Assessed Comments Unknown Sex and Gender Information Value Date Recorded Sex Assigned at Not on file Legal Sex Female 5:57 AM CHECK PROCESSING CLERK Gender Identity Not on file Sexual Orientation [...] 2021 INFLUENZA VACCINE (#1) 2024 Care Teams Police Shift Commander Relationship Specialty Start Date End Date Katie Kellogg MD [address] [facility] [address] [place] [address] PCP - General Pediatrics 09/13/10
--- OUTSIDE RECORDS SUMMARY | 2025-01-27 01:06 | XMS_ITS | Referral Summary ---
Author Organization [facility] Address [address] [place] [address] Care Team Providers Care Prop Setter Name Role Phone Katie Kellogg MD Unavailable [phone] Neda Carranza NP Primary Care Provider Kyra Prieto NP Unavailable [phone] Encounters Date Type Department Care Team Description 01/21/2025 Documentation [facility] Primary Care at [address] [address] Neda Carranza NP 12/03/2024 2:30 PM TEAM GUIDE Office Visit [facility] Primary Care at [address] [address] Neda Carranza NP Anxiety (Primary [...] Information Patient not taking.Reported on 12/03/2024 vit 68-lcad-cbbxr-d cristina 27mg iron- 800 mcg-250 mg capsule [...] 10/01/2017 Assessment & Plan (12/03/2024 6:49 PM TEAM GUIDE): Fluoxetine has worked well until about patient's [...] on file Legal Sex Female 12:45 AM TEAM GUIDE Gender Identity Not on file Sexual Orientation Not on file Last Filed Vital Signs Vital Sign Reading Time Taken Comments Blood Pressure 110/60 12/03/2024 2:52 PM TEAM GUIDE Pulse 80 12/03/2024 2:52 PM TEAM GUIDE Temperature 37 C (98.6 F) 12/03/2024 2:52 PM TEAM GUIDE Respiratory Rate 20 10/04/2024 4:47 PM TEAM GUIDE Oxygen Saturation 98% 12/03/2024 2:52 PM TEAM GUIDE Inhaled Oxygen Concentration - - Weight 77.6 kg (171 lb) 12/03/2024 2:52 PM TEAM GUIDE Height 160 cm (5' 3) 12/03/2024 2:52 PM TEAM GUIDE Body Mass Index 30.29 12/03/2024 2:52 PM TEAM GUIDE Plan of Treatment Not on file Procedures Procedure Name Priority Date/Time Associated Diagnosis Comments HM PAP SMEAR Routine 10/08/2023 9:30 AM TEAM GUIDE N. GONORRHOEAE/C. TRACHOMATIS AMPLIFICATION TEST STAT 04/23/2019 5:16 PM CDT from Last 3 Months or Most Recently Relevant to Health Maintenance Results * HM PAP SMEAR (10/08/2023 9:30 AM TEAM GUIDE) Historical Provider HEALTH MAINTENANCE Final Result * N. gonorrhoeae/C. trachomatis amplification test Urine (04/23/2019 5:16 PM CDT) Report Final Report: Negative for: Chlamydia trachomatis rRNA Negative for: Neisseria gonorrhoeae rRNA [facility] Comment:Testing performed by : [facility], [address] [place]., [address] Urine 04/23/2019 5:16 PM CDT 04/23/2019 7:20 PM CDT Narrative [facility] - 04/24/2019 1:26 PM CDT Testing performed by the Gen-Probe [place] APTIMA Combo 2 Assay. This nucleic acid amplification test (NAAT) detects ribosomal RNA (rRNA) from Chlamydia trachomatis and Neisseria gonorrhoeae using target capture,and Director Of Collections And Archives-Mediated Amplification (TMA). This test is approved by the [place] Food and Drug Administration for endocervical, vaginal, and male urethral swab specimens, in addition to male and female urine specimens. The performance characteristics for these specimen types have been verified by the [facility].The performance characteristics of this assay for pharyngeal and rectal specimens collected from cervical swab collection devices have been validated and verified by the [facility]. Verification studies support a [...] MICROBIOLOGY - GENERAL ORDERABLES Final Result [facility] [place] [address] from Last 3 Months or Most Recently Relevant to Health Maintenance [place] [address] [place] [address] [facility] Advance Directives For more information, please contact: [phone] Documents on File Type Date Recorded Patient Reducing System Operator Expl anation ADVANCE DIRECTIVE 04/23/2019 4:57 PM Care Teams Prop Setter Relationship Specialty Start Date End Date Neda Carranza NP [address] [place] [address] PCP - General Family Medicine 06/30/24 Katie Kellogg MD [address] [place] [address] 09/27/20 Kyra Prieto NP [address] [address] Nurse Practitioner Obstetrics and Gynecology 06/30/24
--- OUTSIDE RECORDS SUMMARY | 2025-01-27 01:06 | XMS_ITS | Clinical Summary ---
Author Organization [facility] Address [address] [place] [address] Care Team Providers Care Manager Meeting Name Role Phone Katie Kellogg MD Unavailable [phone] Neda Carranza NP Primary Care Provider [phone] Kyra Prieto NP Unavailable [phone] Allergies Active Allergy Reactions Criticality Noted Date [...] Information Patient not taking.Reported on 12/03/2024 vit 59-lyan-debct-d cristina 27mg iron- 800 mcg-250 mg capsule [...] 10/01/2017 Assessment & Plan (12/03/2024 6:49 PM TEMPER MILL ROLLER): Fluoxetine has worked well until about patient's [...] Type Department Care Team Description 01/21/2025 Documentation [facility] Primary Care at [address] [address] Neda Carranza NP 12/03/2024 2:30 PM TEMPER MILL ROLLER Office Visit [facility] Medical [facility] Primary Care at [address] [address] Neda Carranza NP Anxiety (Primary Dx) from [...] on file Legal Sex Female 12:45 AM TEMPER MILL ROLLER Gender Identity Not on file Sexual Orientation Not on file Obstetrics History Last Filed Vital Signs Vital Sign Reading Time Taken Comments Blood Pressure 110/60 12/03/2024 2:52 PM TEMPER MILL ROLLER Pulse 80 12/03/2024 2:52 PM TEMPER MILL ROLLER Temperature 37 C (98.6 F) 12/03/2024 2:52 PM TEMPER MILL ROLLER Respiratory Rate 20 10/04/2024 4:47 PM TEMPER MILL ROLLER Oxygen Saturation 98% 12/03/2024 2:52 PM TEMPER MILL ROLLER Inhaled Oxygen Concentration - - Weight 77.6 kg (171 lb) 12/03/2024 2:52 PM TEMPER MILL ROLLER Height 160 cm (5' 3) 12/03/2024 2:52 PM TEMPER MILL ROLLER Body Mass Index 30.29 12/03/2024 2:52 PM TEMPER MILL ROLLER Plan of Treatment Health Maintenance Due Date [...] HM PAP SMEAR Routine 10/08/2023 9:30 AM TEMPER MILL ROLLER N. GONORRHOEAE/C. TRACHOMATIS AMPLIFICATION TEST STAT 04/23/2019 5:16 PM CDT from Last 3 Months or Most Recently Relevant to Health Maintenance Results * HM PAP SMEAR (10/08/2023 9:30 AM TEMPER MILL ROLLER) us Historical Provider HEALTH MAINTENANCE Final Result * N. gonorrhoeae/C. trachomatis amplification test Urine (04/23/2019 5:16 PM CDT) Report Final Report: Negative for: Chlamydia trachomatis rRNA Negative for: Neisseria gonorrhoeae rRNA [facility] Comment:Testing performed by : [facility], [address] [place]., [address] Urine 04/23/2019 5:16 PM CDT 04/23/2019 7:20 PM CDT Narrative [facility] - 04/24/2019 1:26 PM CDT Testing performed by the Gen-Probe Culture [place] APTIMA Combo 2 Assay. This nucleic acid amplification test (NAAT) detects ribosomal RNA (rRNA) from Chlamydia trachomatis and Neisseria gonorrhoeae using target capture,and Personal Shopper-Mediated Amplification (TMA). This test is approved by the [place] Food and Drug Administration for endocervical, vaginal, and male urethral swab specimens, in addition to male and female urine specimens. The performance characteristics for these specimen types have been verified by the [facility].The performance characteristics of this assay for pharyngeal and rectal specimens collected from cervical swab collection devices have been validated and verified by the [facility]. Verification studies support a [...] LAB MICROBIOLOGY - GENERAL ORDERABLES Final Result [facility] [place] [address] from Last 3 Months or Most Recently Relevant to Health Maintenance Insurance [facility] Advance Directives For more information, please contact: [phone] Documents on File Type Date Recorded Patient Bill Sorter Expl anation ADVANCE DIRECTIVE 04/23/2019 4:57 PM Care Teams Manager Meeting Relationship Specialty Start Date End Date Neda Carranza NP [address] [place], [place] [id number] PCP - General Family Medicine 06/30/24 Katie Kellogg MD [address] [place] [address] 09/27/20 Kyra Prieto NP [address] [place] [address] Nurse Practitioner Obstetrics and Gynecology 06/30/24
--- OUTSIDE RECORDS SUMMARY | 2025-01-27 01:06 | XMS_ITS | Clinical Summary ---
Author Organization [facility] Address [address] [place] [address] Care Team Providers Care Telecommunications Network Planner Name Role Phone Katie Kellogg MD Primary Care Provider [phone] Source Comments [facility],non-owned Affiliates and Associated Physician Practices is amultiple site organization consisting of ambulatory clinics and hospital sitesin [place], [place], [place] and [place]. This disclosure is being madepursuant to the Care Everywhere program and may not contain all information available regarding this patient. Last updated 18.[facility] Allergies Active Allergy Reactions Criticality Noted Date [...] AM CDT Pulse 60 11/19/2018 3:28 PM COUNTER SALES PERSON Temperature 37.1 C (98.8 F) 11/19/2018 3:28 PM COUNTER SALES PERSON Respiratory Rate 16 05/19/2018 9:50 AM CDT [...] age to complete this topic Care Teams Telecommunications Network Planner Relationship Specialty Start Date End Date Katie Kellogg MD [address] [place] [address] PCP - General 05/31/18
--- OUTSIDE RECORDS SUMMARY | 2025-01-27 01:06 | XMS_ITS | Encounter Summary ---
Author Organization [facility] Address [address] [place] [id number] Care Team Providers Care Plant Electrical Engineer Name Role Phone Filemon Cortney HESTER Primary Care Provider [phone] Fiona Parkinson MD Primary Care Pr ovider Unavailable Jovanny Suazo MD Primary Care Provider [phone] None, Provider Primary Care Provider Unavaila Neda Escoto CUT OFF SAW OPERATOR Primary Care Provider [phone] Encounter Details Date Type Department Care Team (Late st Contact Info) Description 07/11/2021 Hospital Follow-up Call [facility] [place] [address] Fani Moctezuma, RN Social History Tobacco Use Types Packs/Day Years Used Date Smoking Tobacco: Never Smokeless Tobacco: Never Alcohol Use Standard Drinks/Week Comments Not Currently 0 (1 standard drink = 0.6 oz pur e alcohol) Comments No Sex and Gender Information Value Date Recorded Sex Assigned at Female 11/25/2024 8:35 PM SILVER BUFFER Legal Sex Female 7:16 PM CDT Gender [...] Rule Out 12/27/2024 12/27/2024 12/27/2024 1:26 PM SILVER BUFFER documented as of this encounter Care Teams Plant Electrical Engineer Relationship Specialty Start Date End Date Cortney Colbert NP [address] [place] [id number] PCP - General NURSE PRACTITIONER 05/06/21 10/07/22 Fiona Parkinson MD [address] [place] [id number] PCP - General FAMILY PRACTICE 10/08/22 04/14/23 Jovanny Suazo MD [address] [place] [phone] PCP - General INTERNAL MEDICINE 04/15/23 06/27/24 None, Provider, MD PCP - General UNKNOWN PHYSICIAN SPECIALTY 06/28/24 11/24/24 Neda Carranza, CUT OFF SAW OPERATOR PCP - General Nurse Practitioner Family 11/25/24 documented as of this encounter
--- OUTSIDE RECORDS SUMMARY | 2025-01-27 01:06 | XMS_ITS | Data Portability ---
Author Organization [facility] Address [address] [place] [address] [place] [address] Assessment No assessment recorded. Plan of Treatment Reminders Order Date Submit Date Provider Last Modified By Organization Details Last Modified Time Details Appointments SURG Suction D&C 2024 11:00A Tuan OH MD Not available Not available Not available SURG POST OP 2024 09:15A Tuan OH MD Not available Not available Not available Lab drug screen, urine 2024 025 [email or web address] [place], [place], [address], 12/31/2024 17:35:52 Referral None recorded. Procedures None recorded. Surgeries dilation & curettage (SURG) 2024 025 [facility] Fay Surgery [facility], [address], [place], [address], 01/26/2025 09:28:53 Imaging US, obstetric , limited 2024 025 [email or web address] [address], [address], [place], [address], 01/25/2025 21:27:25 US, obstetric , nuchal transluce ncy 2024 025 [email or web address] [address], [address], [place], [address], 12/31/2024 20:37:14 Medication Orders None recorded. Patient TargetsNo targets recorded. Patient InstructionsNo instructions recorded. Reason for Referral None Reported. Results Created Date Observation Date Name Description Value Unit Range Abnormal Flag Note LastModifiedBy Organization Detail LastModifiedTime 12/25/1912/25/2024 [UNIT Y] ANEUP LOIDY NIPT fraction 3.7% normal Not Available [facility] [address] [facility], [place], [address], 12/25/2024 17:42:09 12/25/19 25 12/25/2024 [UNIT Y] ANEUP LOIDY NIPT 22Q11.2 microdeletio n LOW RISK <1 in 10,000 normal Not Available [facility] [address] [facility], [place], [address], 12/25/2024 17:42:09 12/25/19 25 12/25/2024 [UNIT Y] ANEUP LOIDY NIPT sex chromosome aneuploidy NOT DETECT ED normal Not Available [facility] [address] [facility], [place], [address], 12/25/2024 17:42:09 12/25/19 25 12/25/2024 [UNIT Y] ANEUP LOIDY NIPT monosomy X LOW RISK <1 in 10,000 normal Not Available [facility] [address] [facility], [place], [address], 12/25/2024 17:42:09 12/25/19 25 12/25/2024 [UNIT Y] ANEUP LOIDY NIPT trisomy 13 LOW RISK <1 in 10,000 normal Not Available [facility] [address] [facility], [place], [address], 12/25/2024 17:42:09 12/25/19 25 12/25/2024 [UNIT Y] ANEUP LOIDY NIPT trisomy 18 LOW RISK <1 in 10,000 normal Not Available [facility] [address] [facility], [place], [address], 12/25/2024 17:42:09 12/25/19 25 12/25/2024 [UNIT Y] ANEUP LOIDY NIPT trisomy 21 LOW RISK <1 in 10,000 normal Not Available [facility] [address] [facility], [place], [address], 12/25/2024 17:42:09 12/25/19 25 12/25/2024 [UNIT Y] ANEUP LOIDY NIPT sex FEMALE normal Not Available [facility] [address] [facility], [place], [address], 12/25/2024 17:42:09 12/25/19 25 12/25/2024 [UNIT Y] ANEUP LOIDY NIPT gestation SINGLE TON normal Not Available [facility] [address] [facility], [place], [address], 12/25/2024 17:42:09 12/25/19 25 12/25/2024 [UNIT Y] ANEUP LOIDY NIPT for detailed report, see pdf See PDF normal Not Available [facility] [address] [facility], [place], [address], 12/25/2024 17:42:09 12/03/19 25 12/03/2024 CT/GC AND TRICH OMONA S VAGIN JONO (RRNA ), URINE chlamydia trachomatis, PCR Negati ve negati ve Not Available [facility] (Lab) [address] [place], [address], 12/04/2024 13:36:08 12/03/19 25 12/03/2024 CT/GC AND TRICH OMONA S VAGIN JONO (RRNA ), URINE neisseria gonorrhoeae, PCR Negati ve negati ve Not Available [facility] (Lab) [address] [place], [address], 12/04/2024 13:36:08 12/03/19 25 12/03/2024 CT/GC AND TRICH OMONA S VAGIN JONO (RRNA ), URINE trichomonas vaginalis ribosomal RNA (rrna) Negati ve negati ve Not Available [facility] (Lab) [address], [place], [address], 12/04/2024 13:36:08 12/21/19 25 2024 CBC W/DIF F WBC 7.0 10'3/ uL 3.5-10 .5 Not Available [facility] (Lab) [address], [place], [address], 12/22/2024 14:30:50 12/21/19 25 2024 CBC W/DIF F RBC 4.21 10'6/ uL (based on docume nted legal sex) 3.80-5 .20 Not Available [facility] (Lab) [address], [place], [address], 12/22/2024 14:30:50 12/21/19 25 2024 CBC W/DIF F HGB 12.1 g/dL (based on docume nted legal sex) 11.6-1 5.4 Not Available [facility] (Lab) [address], [place], [address], 12/22/2024 14:30:50 12/21/19 25 2024 CBC W/DIF F HCT 37.0 % (based on docume nted legal sex) 34.0-4 5.0 Not Available [facility] (Lab) [address], [place], [address], 12/22/2024 14:30:50 12/21/19 25 2024 CBC W/DIF F MCV 87.9 fL 80.0-9 9.0 Not Available [facility] (Lab) [address], [place], [address], 12/22/2024 14:30:50 12/21/19 25 2024 CBC W/DIF F MCH 28.7 pg 27.0-3 4.0 Not Available [facility] (Lab) [address], [place], [address], 12/22/2024 14:30:50 12/21/19 25 2024 CBC W/DIF F MCHC 32.7 g/dL 32.0-3 5.5 Not Available [facility] (Lab) [address], [place], [address], 12/22/2024 14:30:50 12/21/19 25 2024 CBC W/DIF F RDW 14.2 % 11.0-1 5.0 Not Available [facility] (Lab) [address], [place], [address], 12/22/2024 14:30:50 12/21/19 25 2024 CBC W/DIF F plt 164 10'3/ uL 150-40 0 Not Available [facility] (Lab) [address], [place], [address], 12/22/2024 14:30:50 12/21/19 25 2024 CBC W/DIF F MPV 13.1 fL 8.8-12 .1 high Not Available [facility] (Lab) [address], [place], [address], 12/22/2024 14:30:50 12/21/19 25 2024 CBC W/DIF F neutrophils 73.6 % 34.0-7 3.0 high Not Available [facility] (Lab) [address], [place], [address], 12/22/2024 14:30:50 12/21/19 25 2024 CBC W/DIF F lymphocytes 19.7 % 15.0-5 0.0 Not Available [facility] (Lab) [address] [facility], [place], [address], 12/22/2024 14:30:50 12/21/19 25 2024 CBC W/DIF F monocytes 5.6 % 1.0-15 .0 Not Available [facility] (Lab) [address] [facility], [place], [address], 12/22/2024 14:30:50 12/21/19 25 2024 CBC W/DIF F eosinophils 0.4 % 0.0-8. 0 Not Available [facility] (Lab) [address] [facility], [place], [address], 12/22/2024 14:30:50 12/21/19 25 2024 CBC W/DIF F basophils 0.4 % 0.0-2. 0 Not Available [facility] (Lab) [address] [facility], [place], [address], 12/22/2024 14:30:50 12/21/19 25 2024 CBC W/DIF [...] separ ately if prese nt. Not Available [facility] (Lab) [address] [facility], [place], [address], 12/22/2024 14:30:50 12/21/19 25 2024 CBC W/DIF F absolute neutrophils 5.1 10'3/ uL 1.5-8. 0 Not Available [facility] (Lab) [address] [facility], [place], [address], 12/22/2024 14:30:50 12/21/19 25 2024 CBC W/DIF F absolute lymphocytes 1.4 10'3/ uL 1.0-4. 0 Not Available [facility] (Lab) [address] [facility], [place], [address], 12/22/2024 14:30:50 12/21/19 25 2024 CBC W/DIF F absolute monocytes 0.4 10'3/ uL 0.2-1. 0 Not Available [facility] (Lab) [address] [facility], [place], [address], 12/22/2024 14:30:50 12/21/19 25 2024 CBC W/DIF F absolute eosinophils 0.0 10'3/ uL 0.0-0. 6 Not Available [facility] (Lab) [address] [facility], [place], [address], 12/22/2024 14:30:50 12/21/19 25 2024 CBC W/DIF F absolute basophils 0.0 10'3/ uL 0.0-0. 3 Not Available [facility] (Lab) [address] [facility], [place], [address], 12/22/2024 14:30:50 12/21/19 25 2024 CBC W/DIF [...] marshall book. nm.or g/Gen derX Not Available [facility] (Lab) [address] [facility], [place], [address], 12/22/2024 14:30:50 12/21/19 25 2024 HEMOG LOBIN [...] >8.0% Actio n sugge sted Not Available [facility] (Lab) [address], [place], [address], 12/22/2024 14:30:51 12/21/19 25 2024 HIV 1/2 ANTIG EN/AN TIBOD Y, REFLE X CONFI RMATI ON HIV antigen/anti body Nonrea ctive nonrea ctive HIV-1 antig en and HIV-1 /HIV- 2 antib odies were not detec bridget. No labor atory evide nce of HIV infec tion. Not Available [facility] (Lab) [address], [place], [address], 12/22/2024 14:30:51 12/21/19 25 2024 HEPAT ITIS B SURFA CE ANTIG EN hepatitis B surface antigen Non-re active non-re active This assay was perfo rmed using [employer] ratio n reage nts and test kits. Value s obtai chelsea with other assay metho ds or kits canno t be used inter puentes eably . Not Available [facility] (Lab) [address], [place], [address], 12/22/2024 14:30:52 12/21/19 25 2024 TYPE/ RH/SC REEN ABO/Rh type A POS Not Available [facility] (Lab) [address], [place], [address], 12/22/2024 14:30:52 12/21/19 25 2024 TYPE/ RH/SC REEN antibody screen NEG Not Available [facility] (Lab) [address], [place], [address], 12/22/2024 14:30:52 12/21/19 25 2024 TYPE/ RH/SC REEN exp date 2024 23:59 Not Available [facility] (Lab) [address] [facility], [place], [address], 12/22/2024 14:30:52 12/21/19 25 2024 HEPAT ITIS C ANTIB SHON SCREE N, REFLE X TO CONFI RMATI ON hepatitis C antibody Non-re active non-re active Antib odies to HCV Not Detec bridget, does not exclu de the possi bilit y of expos ure to HCV. Not Available [facility] (Lab) [address] [facility], [place], [address], 12/22/2024 14:30:52 12/21/19 25 2024 RUBEL LA IGG ANTIB SHON, QUANT rubella antibodies, IgG Reacti ve reacti ve Not Available [facility] (Lab) [address] [place], [address], 12/22/2024 14:30:52 12/21/19 25 2024 RUBEL LA IGG ANTIB SHON, QUANT rubella antibodies, IgG quant 49.7 IU/mL >=10 Non-r eacti ve (Non- Immun e) <10 IU/mL React jeremiah (Immu ne) > or = 10 IU/mL Not Available [facility] (Lab) [address] [facility], [place], [address], 12/22/2024 14:30:52 12/21/19 25 2024 RPR SCREE N, REFLE X TITER /CONF IRMAT ION RPR screen Nonrea ctive nonrea ctive Not Available [facility] (Lab) [address] [place], [address], 12/22/2024 14:30:53 12/21/19 25 2024 CULTU RE: URINE result report SEE RESULT S BELOW Test: Cultu re: Urine Speci men Sourc e: Urine - Clean Catch Speci men Type: Urine Speci men Date: 2024 1249 Resul t Date: 2024 0545 Resul t Statu s: Final resul t Abnor mal: No Resul ting Lab: [facility] [address] [facility] [address] Tel: CULTU RE ----- ----- ----- --- No growt h in 1 day (dete ction level of 10,00 0 colon ies / ml.) Not Available [facility] (Lab) [address] , [place], [address], 12/23/2024 06:49:26 12/31/19 25 12/31/2024 CULTU RE: URINE result report SEE RESULT S BELOW Test: Cultu re: Urine Speci men Sourc e: Urine - Clean Catch Speci men Type: Urine Speci men Date: 2024 Resul t Date: 2024 Resul t Statu s: Final resul t Abnor mal: No Resul ting Lab: [facility] [address] [facility] [address] Tel: CULTU RE ----- ----- ----- --- No growt h in 1 day (dete ction level of 10,00 0 colon ies / ml.) Not Available [facility] (Lab) [address], [place], [address], 01/03/2025 23:59:07 12/31/19 25 12/31/2024 drug scree n, urine Amphetamines : negati ve Not Available [place] [address], [place], [address], 12/31/2024 17:35:24 12/31/19 25 12/31/2024 drug scree n, urine Cannabinoids : negati ve Not Available [place] [address], [place], [address], 12/31/2024 17:35:24 12/31/19 25 12/31/2024 drug scree n, urine Cocaine: negati ve Not Available [place] [address], [place], [address], 12/31/2024 17:35:24 12/31/19 25 12/31/2024 drug scree n, urine Opiates: negati ve Not Available [place] [address], [place], [address], 12/31/2024 17:35:24 12/31/19 25 12/31/2024 drug scree n, urine Phenocyclidi ne: negati ve Not Available [place] [address], [place], [address], 12/31/2024 17:35:24 12/31/19 25 12/31/2024 drug scree n, urine Barbiturates : negati ve Not Available [place] [address], [place], [address], 12/31/2024 17:35:24 12/31/19 25 12/31/2024 drug scree n, urine Benzodiazepi vicki: negati ve Not Available [place] [address], [place], [address], 12/31/2024 17:35:24 12/31/19 25 12/31/2024 drug scree n, urine Ethanol: negati ve Not Available [place] [address], [place], [address], 12/31/2024 17:35:24 12/31/19 25 12/31/2024 drug scree n, urine Hallucinogen s: negati ve Not Available [place] [address], [place], [address], 12/31/2024 17:35:24 12/31/19 25 12/31/2024 drug scree n, urine Inhalants: negati ve Not Available [place] [address], [place], [address], 12/31/2024 17:35:24 12/31/19 25 12/31/2024 drug scree n, urine Anabolic Steroids: negati ve Not Available [place] [address], [place], [address], 12/31/2024 17:35:24 12/03/19 25 12/03/2024 US, obste tric, 1st trime ster No observ ation record ed. [email or web address], [place], [address], 12/03/2024 18:21:43 12/03/19 25 12/03/2024 US, obste tric, 1st trime ster No observ ation record ed. [email or web address] [address], [place], [address], 12/04/2024 17:55:43 12/03/19 25 12/03/2024 US, obste tric, 1st trime ster No observ ation record ed. [email or web address] [address], [place], [address], 12/03/2024 18:20:51 12/03/19 25 12/03/2024 US, obste tric, 1st trime ster No observ ation record ed. [email or web address] [address], [place], [address], 12/04/2024 17:55:18 12/31/19 25 12/31/2024 US, obste tric, nucha l trans lucen cy No observ ation record ed. [email or web address] [place] [address], [place], [address], 12/31/2024 18:16:06 12/31/19 25 12/31/2024 US, obste tric, nucha l trans lucen cy No observ ation record ed. [email or web address] [address], [place], [address], 12/31/2024 20:34:53 01/26/20 25 01/25/2025 US, obste tric, limit ed No observ ation record ed. [email or web address] [place] [address], [place], [address], 01/25/2025 15:49:52 01/26/20 25 01/25/2025 US, obste tric, limit ed No observ ation record ed. [email or web address] [address], [place], [address], 01/25/2025 21:13:14 Result Notes None recorded. Problems Name Problem SNOMED Code Status Onset Date Resolution Date Notes Provider Name and Address Organization Details Recorded Time [id number] Active 025 Veronica underwood [facility] 16:55:23 Problem Notes None recorded. Procedures Surgical History Date Name Laterality Status Provider Name and Address Organization Details Recorded Time 10/08/20 23 Date of Last Pap Smear completed Luciemagnolia Liriano [facility] 10/08/2023 16:15:23 09/11/20 21 procedure on nose completed Nia Sigala [facility] 03/20/2022 15:13:46 06/11/20 21 Laparoscopy completed [facility] 04/16/2022 19:46:46 09/17/20 18 laparoscopic excision of cyst of right ovary completed Lucie Heri [facility] 04/16/2022 19:44:54 11/11/19 12 procedure on fingernail completed Luciemagnolia Liriano [facility] 04/16/2022 19:45:23 11/11/19 11 tonsillectomy and adenoidectomy completed [facility] Heri [facility] 04/16/2022 19:45:36 11/11/19 05 removal of silastic tubes from ear completed [facility] 04/16/2022 19:46:07 11/11/19 04 removal of silastic tubes from ear completed [facility] 04/16/2022 19:46:03 11/11/19 03 removal of silastic tubes from ear completed [facility] 04/16/2022 19:46:00 11/11/19 02 Unlisted px ant segment eye completed [facility] 04/16/2022 19:44:41 11/11/19 02 removal of silastic tubes from ear completed [facility] 04/16/2022 19:45:58 Imaging Results Imaging Date Name Status LastModified by Organization Details LastModified Time 12/03/2024 US, obstetric, 1st trimester completed [email or web address] [address], [place], [address], 12/03/2024 18:21:43 12/03/2024 US, obstetric, 1st trimester completed [email or web address] [address], [place], [address], 12/04/2024 17:55:43 12/03/2024 US, obstetric, 1st trimester completed [email or web address] [address], [place], [address], 12/03/2024 18:20:51 12/03/2024 US, obstetric, 1st trimester completed [email or web address] [address], [place], [address], 12/04/2024 17:55:18 12/31/2024 US, obstetric, nuchal translucency completed [email or web address] [place] [address], [place], [address], 12/31/2024 18:16:06 12/31/2024 US, obstetric, nuchal translucency completed [email or web address] [address], [place], [address], 12/31/2024 20:34:53 01/25/2025 US, obstetric, limited completed [email or web address] [place] [address], [place], [address], 01/25/2025 15:49:52 01/25/2025 US, obstetric, limited completed [email or web address] [address], [place], [address], 01/25/2025 21:13:14 Procedure Notes None recorded. Medical Equipment None Reported. Allergies Allergen ID Allergen Name Allergen Category Reaction Reaction Severity Criticality Documentation Date Start Date Code Code System Note Provider Name and Address Organization Details Recorded Time 45941 vancomyci n medicatio n Not available Not available Not available 03/20/2022 23821 RxNorm Nia Sigala [facility] 2 15:11:57 54395 ethinyl estradiol / norelgest romin medicatio n nausea Not available low 10/18/2023 08093 7 RxNorm Kay lopez, [facility]- [address], [place], [address] , [facility] 3 13:53:24 853 clindamyc in Not available hives Not available Not available 04/14/2020 2582 RxNorm Cee Ruykacyalejandrina roxanne [facility] 0 01:19:48 854 Substance with sulfonami de structure and antibacte rial mechanism of action (substanc e) medicatio n hives Not available Not available 04/14/2020 12537 8003 SNOMED Crystal Ruykacytan roxanne [facility] 0 01:20:00 Medications Name Sig Start [...] Stevens e: No Locat ion: [facility] Tuan odify By: [email or web address] Zayas [email or web address] DateTime : 09/25/20 03:45:43 PM Not Available Not Available Not Available tramadol 50 mg tablet 11/19 /2024 completed Not Available Not Available Not Available Macrobid 100 mg capsule take 1 capsule by oral route every 12 hours with food, as directed 09/22 completed Prescrib ed Elsewher e: No Locat ion: [facility] odify By: [email or web address] Arin vanessa DateTime : [...] PATCH WITHIN 12 HOURS OR DIRECTED RAVEN HNUT 04/20 completed Not Available Not Available Not [...] ed Elsewher e: Yes Loca tion: [facility] odify By: amgladys Zayas [email or web address] DateTime : [...] Elsewher e: No Locat ion: [facility] odify By: amgladys mannuntbhavesh DateTime : [...] Elsewher e: No Locat ion: [facility] odify By: smcaley Jose M dougherty DateTime : 10/15/20 18 09:15:13 AM Not Available Not Available Not Available fluoxetin e 20 mg capsule active Not Available Not Available Not Available ParaGard T 380A 380 square mm intrauter ine device 10/07 completed Prescrib ed Elsewher e: Yes Loca tion: [facility] odify By: amgladys Zayas ncounter DateTime [...] Elsewher e: No Locat ion: [facility] odify By: katerin ospina DateTime : 10/13/20 18 03:08:36 PM Not Available Not Available Not Available azithromy alejandra 500 mg tablet TAKE 2 TABLETS BY MOUTH TODAY 03/20 completed Not Available Not Available Not Available Lor 0.35 mg tablet take 1 tablet by oral route every day 10/07 completed Prescrib ed Elsewher e: No Locat ion: [facility] odify By: velia mannunter DateTime : 04/21/20 18 01:45:00 PM Not Available Not Available Not Available cyclobenz aprine 5 mg tablet 04/20 completed Not Available Not Available Not Available Paula 14 mcg/24 hr (up to 3 years) 13.5 mg intrauter ine device 02/10 completed Prescrib ed Elsewher e: Yes Loca tion: [facility] odify By: katerin ospina DateTime : 11/18/19 19 03:00:00 PM Not Available Not Available Not Available Suprax 400 mg capsule take 1 capsule by oral route every day 01/16 completed Prescrib ed Elsewher e: No Locat ion: [place] [facility] odify By: jeff dougherty DateTime : [...] Updated DateTime 2024 162.56 cm 30.2 kg/m2 13948.26 g 113 mm[Hg] 79 mm[Hg] Soraya Ch [facility] 10:20:27 Date Recorded Body height Body mass index (BMI) Body weight Systolic blood pressure Diastolic blood pressure Provider Name and Address Organization Details Last Updated DateTime 12/31/2024 162.56 cm 30.6 kg/m2 17304.44 g 113 mm[Hg] 69 mm[Hg] Veronica Prairie [facility] 16:52:56 Date Recorded Body height Provider Name an d Address Organization Details Last Updated DateTime 01/25/2025 162.56 cm [facility] 01/25/2025 14:08:41 Social History Question Answer Notes LastModified by Organizat ion Details LastModified Time Tobacco Smoking Status Never Smoker Nia underwood [facility] 03/20/2022 15:13:34 What Is Your Level Of Alcohol Consumption? None Information not available 03/20/2022 Are You Blind Or Do You Have Difficulty Seeing? No Information n ot available 03/20/2022 What Is Your Level Of Caffeine Consumption? Occasional Information not available 04/20/2023 In The 14 Days Before Symptom Onset, Have You Had Close Contact With A Laboratory-confirm ed COVID-19 While That Case Was Ill? No [email or web address] Information n ot available 04/20/2023 In The 14 Days Before Symptom Onset, Have You Had Close Contact With A Person Who Is Under Investigation For COVID-19 While That Person Was Ill? No [email or web address] Information not available 04/20/2023 Have You Been To An Area Known To Be High Risk For COVID-19? No [email or web address] Information not available 04/20/2023 Are You Deaf Or Do You Have Serious Difficulty Hearing? No Information not available 03/20/2022 What Type Of Diet Are You Following? REGULAR Information n ot available 03/20/2022 Do You Use Your Seat Belt Or Car Seat Routinely? Yes [email or web address] Information not available 04/20/2023 Do You Have Smoke And Carbon Monoxide Detectors In Your Home? Yes [email or web address] Information not available 04/20/2023 Do You Feel Stressed (tense, Restless, Nervous, Or Anxious, Or Unable To Sleep At Night)? [id number] [email or web address] Information not available 04/20/2023 Do You Use Any Illicit Or Recreational Drugs? No [email or web address] Information not available 04/20/2023 Do You Use Sunscreen Routinely? Yes [email or web address] Information not available 04/20/2023 Has Tobacco Cessation Counseling Been Provided? No [email or web address] Information not available 04/20/2023 Do You Or Have You Ever Used Any Other Forms Of Tobacco Or Nicotine? No [email or web address] Information not available 04/20/2023 Sex: Unknown Functional [...] SNOMED-CT Code Diagnosis ICD10 Code Diagnosis Note [id number] WHITNEY Britton [place] [address] [address] 03/20/2022 14:53:17 03/20/2022 16:20:52 Abnormal uterine bleeding [id number] 9100 N93.9 She has been having spotting [...] 30 minutes Sexually t ransmitted infectious disease [id number] A[id number] [facility] [address] [address] 03/27/2022 14:30:04 03/27/2022 15:06:59 Irregular periods 55858805 N94.10 [id number] Ricky Oh MD [place] [address] [address] 04/16/2022 15:04:38 04/16/2022 16:50:13 Abnormal uterine bleeding [id number] 9100 N93.9 Postcoital bleeding 4888 0000 N93.0 Contracept ion care management 408051934 Z30.9 this patient is a 21-year-ol d [...] postcoital bleeding. To follow-up in 3 months. [id number] Kay Delaney [facility] [address],[place] [address] 04/20/2023 12:13:46 05/20/2023 16:35:33 Vaginitis 11748181 N76.0 Today we agreed to send swab and await results to confirm BV prior to use of abx.STD screen sendVag swab cx sentVCG's reviewed Time spent in visit is a total of 15 mins with at least 50% of visit consisting of counseling and review of plan of care. [id number] Kay Delaney [facility] [address],[place] [address] 05/15/2023 18:27:21 05/31/2023 15:53:36 Pain in pelvis 32541930 R10.2 Today we agreed to update US [...] plan of care. Venereal d isease screening 565127935 Z11.3 Update std screen for SA with a new [facility] [id number] [facility] [address],[place] [address] 05/20/2023 17:32:44 05/20/2023 18:08:04 Pain in pelvis 36277797 R10.2 [id number] Kyra Adkins MIR [place] [address],[place] [address] 07/08/2023 16:24:05 07/08/2023 16:55:49 Amenorrhea 55560300 N91.2 Irregular periods 343224 07 N92.6 UPT (-)she would like bhcg [...] of plan of care. Cyst of ovary 68305640 N 83.209 [id number] Tracy Padilla [place] [address],[place] [address] 07/18/2023 17:29:49 07/19/2023 14:31:42 Irregular periods 62843428 N94.10 [id number] Kyra Adkins [facility] [address],[place] [address] 08/22/2023 17:15:34 08/22/2023 17:48:32 Exposure to chlamydia 7573517890 104 Z20.2 UPT (-)gc/ct/t rich testing sentblood [...] review of plan of care. Irregular periods 183006 07 N92.6 Unprotecte d sexual intercourse 4715506 Z72.51 Venereal d isease screening 831241615 Z11.3 Sexually t ransmitted infectious disease 5614153 A64 Contracept ion care management 298940060 Z30.9 [id number] Kyra Adkins MIR [place] [address],[place] [address] 10/08/2023 15:06:13 10/08/2023 15:48:08 Irregular periods 50834785 N92.6 Postcoital bleeding 4888 0000 N93.0 pap/STI testing updatedTVU S orderedpre cautions reviewedRT C to review result Time spent in visit is a total of 30 mins with at least 50% of visit consisting of counseling and review of plan of care. Dysuria 62322454 R30.0 Venereal d isease screening 356379260 Z11.3 Screening for malignant neoplasm of cervix 730631785 Z12.4 [id number] Kaur Corbin [place] [address],[place] [address] 10/15/2023 15:00:27 10/15/2023 16:21:16 Irregular periods 89512003 N94.10 R10.2 [id number] Kay Delaney [facility] [address],[place] [address] 10/18/2023 13:21:37 10/18/2023 13:59:31 Irregular periods 45805545 N92.6 Today we reviewed the imaging results.Jh chris verbalized .We decided to re-initiat [facility] to help regulate periods & avoid [...] plan of care. Contracept ion care management 249289449 Z30.9 Discussed all control options in great [...] read and signed. Pt verbalized understand ing. [id number] Kay Delaney [facility] [address],[place] [address] 12/19/2023 16:50:36 12/25/2023 16:42:05 Vaginitis 80548847 N76.0 Exam WNLWill monitor for nowMost sx's have resolved.N o other issues presentDec lined need for STD screen Time spent in visit is a total of 15 mins with at least 50% of visit consisting of counseling and review of plan of care. [id number] Kay Delaney [facility] [address],[place] [address] 03/26/2024 14:39:26 03/26/2024 15:26:48 Vaginitis 69037459 N76.0 Suspect yeast/BV on exam today.Disc ussed [...] counseling and review of plan of care. [id number] Nia Sigala [place] [address],[place] [address] 07/20/2024 10:58:56 07/20/2024 11:20:56 Venereal disease screening 631519328 Z11.3 [id number] Ricky Oh MD [place] [address],[place] [address] 09/29/2024 12:32:40 09/30/2024 09:10:54 Vulvovaginitis 09809824 N76.0 Contracept ion care management 995246183 Z30.9 this patient is a 23-year-ol d [...] alternativ es to combined hormonal contracept ion [id number] Kaur Corbin [place] [address],[place] [address] 11/19/2024 12:02:02 11/19/2024 12:59:48 ultrasound confirms intrauterine 532151426 Z33.1 O36.80X9 Z3A.01 [id number] Becca John [place] [address],[place] [address] 12/03/2024 11:24:42 12/03/2024 12:08:32 [id number] Ricky Oh MD [place] [address],[place] [address] 12/03/2024 11:33:51 12/04/2024 07:09:56 Nausea and vomiting 65194585 R11.2 Amenorrhea 60476100 N91. 2 this patient is a 23year-old [...] begin routine care at her next visit. [id number] ANTHONY MCDERMOTT MD [place] [address],[place] [address] 2024 10:07:05 2024 10:52:45 Cramping pain 174142758 R52 - patient reports urine odor and cramping in lower abdomen and back- no dysuria or hematuria- will send urine for culture and treat based on results [id number] Kaur Corbni [place] [address],[place] [address] 12/31/2024 16:06:40 12/31/2024 16:51:15 screening 851702658 Z36.82 Z3A.12 [id number] Ricky Oh MD [place] [address],[place] [address] 12/31/2024 16:08:00 12/31/2024 17:52:37 Routine care 182289849 Z34.[id number] [facility] [address],[place] [address] 01/25/2025 13:34:40 01/25/2025 14:10:59 Missed miscarriage 94161527 O02.1 Z3A.00 [id number] [place] [address],[place] [address] 01/25/2025 14:07:44 01/25/2025 14:38:19 Missed miscarriage 09773703 O02.1 Z3A.00 This patient is a 24yo [...] Kumar Member ID Guarantor Name 2024 1 [facility] (MEDICAID HMO) [id number] 0003 Angela Peterson [id number] Angela Lawton Nicholas 12/31/2024 1 [facility] (MEDICAID HMO) [id number] 0003 Angela Peterson [id number] Angela Lawton Nicholas 12/31/2024 1 [facility] (MEDICAID HMO) [id number] 0003 Angela Peterson [id number] Angela Spencervin 01/25/2025 1 [facility] (MEDICAID HMO) [id number] 0003 Angela Peterson [id number] Angela Spencervin 01/25/2025 1 [facility] (MEDICAID HMO) [id number] 0003 Angela Peterson [id number] Angela Peterson Notes Date Note Type Note Provider Name and Address Organization Details Recorded Time 2024 text/html Patient presents for evaluation of UTI. She reports some odor as well as lower abdominal/back cramping. No fevers or chills. No dysuria, hematuria, or abnormal vaginal discharge. ANTHONY MCDERMOTT MD [address], [place], [address], [facility] 2024 10:41:16 01/25/2025 text/html This patient [...] total. Ricky Oh MD [address], [place], [address], [facility] 01/25/2025 14:36:41 OBGyn Episode Ob Episode Information Episode Created Date Number of Fetuses Patient Bloodtype Patient rh Status Prepregnancy Weight lbs Domestic Partner Domestic Partner Phone Father Name Stain Wiper Status 12/31/19 25 1 A Positive Ayan OPEN Fetus Data First Name Last Name Admitted to NICU Weight (g) Sex Living Outcome Pediatric Complications Fetus ID Race Codes Race Delivery Type [id number] Chris Calculation Initial Chris Date Initial Exam [...] Weight in lbs Pre/Post Dialysis Refused Weight [id number] BP Diastolic BP Location Tested BP Systolic [...]
--- NOTE | 2025-01-27 01:13 | ED.PREGNANCY ---
HPI - General Chief complaint: Vaginal Bleeding Stated complaint: miscarriage at 13 weeks, scheduled for D/C Time Seen by Provider: 01/27/25 00:46 Source: patient Mode of arrival: ambulatory Limitations: no limitations History of Present Illness HPI Narrative: This is a 24 year old female that presents to the ER for vaginal bleeding, pelvic cramping. Reports she is currently about 16 weeks by LMP. She was found to have missed on ultrasound. She has been having spotting which has become more heavy and now she is also having some cramping. She is scheduled for a D & C at 9 AM[address] OB is Dr. Oh. Related Data Allergies Allergy/AdvReac Type Severity Reaction Status Date / Time Sulfa (Sulfonamide Allergy Unknown Hives Verified 01/27/25 00:00 Antibiotics) clindamycin Allergy Hives Verified 01/27/25 00:00 vancomycin AdvReac fever Verified 01/27/25 00:00 Review of Systems Review of Systems: CONSTITUTIONAL: Denies fever GASTROINTESTINAL: Reports pelvic cramping GENITOURINARY: Reports vaginal bleeding All systems reviewed & are unremarkable except as noted in HPI and below PMFSH Past Medical History Medical History (Updated 01/27/25 @ 02:12 by Angela Fernandez PA-C) No active medical problems Family History Family History (Updated 08/24/09 @ 15:18 by DOCTOR UNKNOWN) Other Diabetes mellitus Family history of cardiovascular disease Hypertension Social History Social History Second hand tobacco smoke exposure: No Exam Narrative: GENERAL: Well-appearing, well-nourished, and in no acute distress. HEAD: Normocephalic, atraumatic. EYES: EOMI. CHEST: Clear to auscultation. No respiratory distress. No wheezes rales or rhonchi HEART: Regular rate and rhythm. No murmur heard. Normal peripheral pulses. ABDOMEN: Soft, nontender, nondistended, normal active bowel sounds. EXTREMITIES: Normal range of motion. No edema. SKIN: Warm, dry, no rash. NEURO: No focal deficits. Alert and oriented x3. PSYCH: Normal mood and affect PELVIC: Normal external genitalia. Small amount of dark red blood in the vaginal vault Course Course Emergency Course: patient and family updated on workup. patient is still quite uncomfortable after pain medication Consultations Consultation #1: Spoke with Dr. Oh about patient and workup. Will keep patient for pain control, D & C in the morning Date: 01/27/25 Vital Signs Vital signs: Vital Signs Temperature 98.4 F 01/27/25 00:01 Pulse Rate 88 01/27/25 00:01 Blood Pressure 120/75 01/27/25 00:01 Pulse Oximetry 99 01/27/25 00:01 Oxygen Delivery Room Air 01/27/25 00:01 Temperature 98.4 F 01/27/25 00:01 Pulse Rate 68 01/27/25 01:46 Respiratory Rate 14 01/27/25 01:46 Blood Pressure 104/69 01/27/25 01:46 Pulse Oximetry 100 01/27/25 01:46 Oxygen Delivery Room Air 01/27/25 00:01 MDM - OB/Uterine Contractions MDM Narrative Medical decision making narrative: Patient presents the emergency department for increasing pain. Reports recently being diagnosed with missed . She is scheduled for a D and C this morning with Dr. Oh. Her vitals are stable. Hemoglobin is normal. No concerning amount of bleeding on exam. Spoke with Dr. Oh about patient and workup. Will keep patient for pain control, D and C in the morning. Differential Diagnosis Differential diagnosis: Likely other (missed , ) Lab Data Attestation: I reviewed the patient's lab results. 01/27/25 00:19 01/27/25 00:19 Labs: Lab Results 01/27/25 01/27/25 01/27/25 Range/Units 00:19 00:19 00:19 WBC 9.6 (4.5-10.0) K/mm3 RBC 4.23 (4.2-5.4) M/mm3 Hgb 12.5 (12.0-15.0) g/dL Hct 37.7 (37.0-47.0) % MCV 89.1 (80-100) fl MCH 29.6 (26-34) pg MCHC 33.2 (32-36) g/dl RDW 13.2 (11.5-14.5) % Plt Count 182 (150-375) k/mm3 MPV 12.4 H (7.4-10.4) fl Immature Gran % (Auto) 0.4 (0-0.5) % Neut % (Auto) 74.4 H (45.5-73.1) % Lymph % (Auto) 19.6 (18.3-44.2) % Bleckley % (Auto) 5.0 (2.6-8.5) % Eos % (Auto) 0.5 (0-4.4) % Baso % (Auto) 0.1 L (0.2-1.2) % Lymph # (Auto) 1.89 (0.9-3.2) K/mm3 Bleckley # (Auto) 0.5 (0.1-0.6) K/mm3 Eos # (Auto) 0.1 (0-0.3) K/mm3 Baso # (Auto) 0.0 (0.0-0.1) K/mm3 Abs Immat Gran (auto) 0.04 H (0.00-0.031) K/mm3 Absolute Neuts (auto) 7.2 H (1.3-6.7) K/mm3 Absolute Nucleated RBC 0.000 (0.0-0.012) K/mm3 Nucleated RBC % 0.0 (0.0-0.2) % PT 13.1 (11.1-14.7) Seconds INR 1.0 APTT 28.2 (22.3-36.8) Seconds Sodium 137 (137-145) mmol/L Potassium 3.5 (3.4-5.0) mmol/L Chloride 104 (98-107) mmol/L Carbon Dioxide 23 (22-30) mmol/L Anion Gap 10 (4-12) mmol/L BUN 14 (7-17) mg/dL Creatinine 0.52 L (0.7-1.0) mg/dL Estim Creat Clear Calc Not Reportable Estimated GFR > 60 (59 - ) Glucose 101 (65-110) mg/dL Calcium 9.6 (8.4-10.2) mg/dL Total Bilirubin 0.3 (0.2-1.3) mg/dL AST 21 (14-36) U/L ALT 28 (6-35) U/L Alkaline Phosphatase 49 (38-126) U/L Total Protein 7.0 (6.3-8.2) g/dL Albumin 4.0 (3.5-5.1) g/dL Beta HCG, Quant 565.27 mIU/ML Influenza A (RT-PCR) Influenza B (RT-PCR) SARS-CoV-2 RNA (RT-PCR) Blood Type Cancelled A Positive Antibody Screen Cancelled Negative Screen Not Reportable Baby's Blood Type Not Reportable Baby's TAMERA Not Reportable Doses of RhIg Required 0 01/27/25 Range/Units 01:19 WBC (4.5-10.0) K/mm3 RBC (4.2-5.4) M/mm3 Hgb (12.0-15.0) g/dL Hct (37.0-47.0) % MCV (80-100) fl MCH (26-34) pg MCHC (32-36) g/dl RDW (11.5-14.5) % Plt Count (150-375) k/mm3 MPV (7.4-10.4) fl Immature Gran % (Auto) (0-0.5) % Neut % (Auto) (45.5-73.1) % Lymph % (Auto) (18.3-44.2) % Bleckley % (Auto) (2.6-8.5) % Eos % (Auto) (0-4.4) % Baso % (Auto) (0.2-1.2) % Lymph # (Auto) (0.9-3.2) K/mm3 Bleckley # (Auto) (0.1-0.6) K/mm3 Eos # (Auto) (0-0.3) K/mm3 Baso # (Auto) (0.0-0.1) K/mm3 Abs Immat Gran (auto) (0.00-0.031) K/mm3 Absolute Neuts (auto) (1.3-6.7) K/mm3 Absolute Nucleated RBC (0.0-0.012) K/mm3 Nucleated RBC % (0.0-0.2) % PT (11.1-14.7) Seconds INR APTT (22.3-36.8) Seconds Sodium (137-145) mmol/L Potassium (3.4-5.0) mmol/L Chloride (98-107) mmol/L Carbon Dioxide (22-30) mmol/L Anion Gap (4-12) mmol/L BUN (7-17) mg/dL Creatinine (0.7-1.0) mg/dL Estim Creat Clear Calc Estimated GFR (59 - ) Glucose (65-110) mg/dL Calcium (8.4-10.2) mg/dL Total Bilirubin (0.2-1.3) mg/dL AST (14-36) U/L ALT (6-35) U/L Alkaline Phosphatase (38-126) U/L Total Protein (6.3-8.2) g/dL Albumin (3.5-5.1) g/dL Beta HCG, Quant mIU/ML Influenza A (RT-PCR) Pending Influenza B (RT-PCR) Pending SARS-CoV-2 RNA (RT-PCR) Pending Blood Type Antibody Screen Screen Baby's Blood Type Baby's TAMERA Doses of RhIg Required Critical Care Time Critical Care Time Critical Care Time: No Discharge Plan Discharge Clinical Impression: Missed Patient Disposition: Still a Patient Condition: Stable Patient Language: [place] Citizen Follow-up/Referrals: Dillon,Neda Ramirez, BRICK SORTER [Primary Care Provider] -
[2025-01-27] MEDS: MORPHINE SULFATE (*CRX) 4 MG/ML INJ IV PUSH ×2 (01:24→04:07)
[2025-01-27] MEDS: ONDANSETRON INJ 4 MG/2 ML VIAL IV PUSH ×2 (01:24→04:07)
--- OUTSIDE RECORDS SUMMARY | 2025-01-27 01:50 | XMS_ITS | Clinical Summary ---
Author Organization [facility] Address Formerly [facility] [place] [address] Care Team Providers Care Bottom Cager Name Role Phone Neda Carranza SUPERINTENDENT DRILLING Primary Care Provider [phone] Allergies Active Allergy Reactions Criticality Noted Date [...] Department Care Team Description 12/27/2024 10:31 AM JOB SPOTTER - 12/27/2024 2:10 PM [facility] Emergency [facility] Emergency Room [address] [place] [address] Aaron Melissa MD Back Pain Discharge Disposition: Home or Self Care (Routine Discharge) 12/27/2024 Travel 11/25/2024 7:55 PM JOB SPOTTER - 11/25/2024 11:22 PM [facility] Emergency [facility] Emergency Room [address] [place] [address] Aaron Melissa MD Abdominal Pain ; Blood [...] Sex Assigned at Female 11/25/2024 8:35 PM JOB SPOTTER Legal Sex Female 7:16 PM CDT Gender Identity Not on file Sexual Orientation Not on file Last Filed Vital Signs Vital Sign Reading Time Taken Comments Blood Pressure 105/68 12/27/2024 2:10 PM JOB SPOTTER Pulse 70 12/27/2024 2:10 PM JOB SPOTTER Temperature 36.3 C (97.3 F) 12/27/2024 2:10 PM JOB SPOTTER Respiratory Rate 18 12/27/2024 2:10 PM JOB SPOTTER Oxygen Saturation 99% 12/27/2024 2:10 PM JOB SPOTTER Inhaled Oxygen Concentration - - Weight 74.8 kg (164 lb 14.5 oz) 025 10:39 AM JOB SPOTTER Height 160 cm (5' 3) 12/27/2024 10:39 AM JOB SPOTTER Body Mass Index 29.21 12/27/2024 10:39 AM JOB SPOTTER Plan of Treatment Health Maintenance Due Date Last Done Comments DTaP, Tdap and Td Vaccines (7 - Td or Tdap) 05/07/2022 05/07/2012, 05/29/2006, 03/23/2002, Additional history exists Annual Physical 01/25/2024 01/24/2023 COVID-19 Vaccine ( season) 2024 05/01/2021, 04/03/2021 Influenza Adult (#1) 2024 01/20/2020, 09/30/2014, 11/20/2013, Additional history exists PHQ-2 (Physician Rogers) 11/11/2024 Cervical Cancer Screening Pap Smear (Age [...] A & B STAT 12/27/2024 12:45 PM JOB SPOTTER CORONAVIRUS (COVID 19) STAT 12:45 PM JOB SPOTTER URINALYSIS, AUTO, COMPLETE STAT 12/27/2024 11:11 AM JOB SPOTTER COMPREHENSIVE METABOLIC PANEL STAT 12/27/2024 10:50 AM JOB SPOTTER CBC W/DIFF AUTOMATED STAT 12/27/2024 10:50 AM JOB SPOTTER URINALYSIS, AUTO, COMPLETE STAT 11/25/2024 9:00 PM JOB SPOTTER HCG QUANT (SERUM)-CHORIONIC GONADOTROPIN STAT 11/25/2024 8:10 PM JOB SPOTTER COMPREHENSIVE METABOLIC PANEL STAT 11/25/2024 8:10 PM JOB SPOTTER CBC W/DIFF AUTOMATED STAT 11/25/2024 8:10 PM JOB SPOTTER CYTOPATH CERV/VAG THIN LAYER Routine 01/24/2023 8:02 AM CDT from Last 3 Months or Most Recently Relevant to Health Maintenance Results * CORONAVIRUS (COVID-19) MOLECULAR (12/27/2024 12:45 PM JOB SPOTTER) CORONAVIRUS SARS COV 2 RNA NEGATIVE NEGATIVE 12/27/2024 1:25 PM JOB SPOTTER [facility] Comment: NEGATIVE RESULTS DO NOT [...] SARS-COV-2. SPECIMEN TYPE NASAL 12/27/2024 12:46 PM JOB SPOTTER [facility] NASOPHARYNGEAL SWAB / Unknown 12/27/2024 12:45 PM JOB SPOTTER us Aaron Melissa MD MICROBIOLOGY - GENERAL ORDERABLE S Final Result [facility] [address] [place] [address], [place] [phone] * INFLUENZA A & B (12/27/2024 12:45 PM JOB SPOTTER) SPECIMEN TYPE NASOPHARYNGEAL SWAB 12/27/2024 12:48 PM JOB SPOTTER [facility] INFLUENZA A NEGATIVE NEGATIVE 12/27/2024 1:22 PM JOB SPOTTER [facility] INFLUENZA B NEGATIVE NEGATIVE 12/27/2024 1:22 PM JOB SPOTTER [facility] NASAL STRUCTURE / Unknown 12/27/2024 12:45 PM JOB SPOTTER us Aaron Melissa MD MICROBIOLOGY - GENERAL ORDERABLE S Final Result [facility] [address] [place] [address], [place] [phone] * URINALYSIS, AUTO, COMPLETE (12/27/2024 11:11 AM JOB SPOTTER) Only the most recent of2 resultswithin the time period is included. COLOR (U) YELLOW 12/27/2024 11:24 AM [facility] TRANSPARENCY HAZY 12/27/2024 11:24 AM [facility] SPECIFIC GRAVITY (U) 1.020 1.000 - 1.030 12/27/2024 11:24 AM [facility] U PH 8.5 5.0 - 9.0 12/27/2024 11:24 AM [facility] LEUKOCYTES (U) NEGATIVE NEGATIVE 12/27/2024 11:24 AM [facility] NITRITES NEGATIVE NEGATIVE 12/27/2024 11:24 AM [facility] PROTEIN RANDOM (U) NEGATIVE NEGATIVE 12/27/2024 11:24 AM [facility] GLUCOSE (U) NEGATIVE NEGATIVE 12/27/2024 11:24 AM [facility] KETONES MG/DL (U) NEGATIVE NEGATIVE 12/27/2024 11:24 AM [facility] BILIRUBIN (U) NEGATIVE NEGATIVE 12/27/2024 11:24 AM [facility] BLOOD (U) NEGATIVE NEGATIVE 12/27/2024 11:24 AM [facility] WBC/HPF 0-5 0 - 5 /HPF 12/27/2024 11:24 AM [facility] RBC/HPF 0-5 0 - 5 /HPF 12/27/2024 11:24 AM [facility] EPI/HPF RARE /HPF 12/27/2024 11:24 AM [facility] BACTERIA (U) MODERATE /HPF 12/27/2024 11:24 AM [facility] URINE SPECIMEN OBTAINED BY CLEAN CATCH PROCEDURE / Unknown 12/27/2024 11:11 AM JOB SPOTTER Aaron Melissa MD URINE ORDERABLES Final Result [facility] [address] [place] [address], [place] [phone] * (ABNORMAL) COMPREHENSIVE METABOLIC PANEL (12/27/2024 10:50 AM JOB SPOTTER) Only the most recent of2 resultswithin the time period is included. GLUCOSE 89 70 - 99 MG/DL 12/27/2024 11:32 AM [facility] BUN 12 7 - 18 MG/DL 12/27/2024 11:32 AM [facility] CREATININE S/P/B 0.43(L) 0.55 - 1.02 MG/DL 12/27/2024 11:32 AM [facility] SODIUM S/P/B 136 136 - 145 MMOL/L 12/27/2024 11:32 AM [facility] POTASSIUM S/P/B 3.5 3.5 - 5.1 MMOL/L 12/27/2024 11:32 AM [facility] CHLORIDE S/P/B 102 100 - 108 MMOL/L 12/27/2024 11:32 AM [facility] CO2 23.2 21 - 32 MMOL/L 12/27/2024 11:32 AM [facility] CALCIUM S/P/B 8.5 8.5 - 10.1 MG/DL 12/27/2024 11:32 AM [facility] BILIRUBIN TOTAL S/P/B 0.3 0.2 - 1.2 MG/DL 12/27/2024 11:32 AM [facility] TOTAL PROTEIN S/P/B 6.0(L) 6.4 - 8.2 G/DL 12/27/2024 11:32 AM [facility] ALBUMIN S/P/B 3.0(L) 3.4 - 5.0 G/DL 12/27/2024 11:32 AM [facility] AST 14(L) 15 - 37 U/L 12/27/2024 11:32 AM [facility] ALT 28 14 - 55 U/L 12/27/2024 11:32 AM [facility] ALKALINE PHOSPHATASE S/P/B 36(L) 50 - 136 U/L 12/27/2024 11:32 AM [facility] ANION GAP 10.8 5 - 15 MMOL/L 12/27/2024 11:32 AM [facility] BUN CREATININE RATIO 27.9(H) 6 - 26 12/27/2024 11:32 AM [facility] A/G RATIO 1.0 1.0 - 2.0 RATIO 12/27/2024 11:32 AM [facility] GFR ESTIMATE >90 >90 ML/MIN/1.7 3 M2 12/27/2024 11:32 AM [facility] Comment: NOTE: eGFR is not calculated for patients <18 years of age. This is an estimated GFR calculation using the new CKD EPI creatinine equation without race and so does not require a correction factor for race. This estimated GFR should not be used for calculating drug doses. 12/27/2024 10:5 0 AM JOB SPOTTER us Aaron Melissa MD LABORATORY Final Result [facility] [address] [place] [address], * (ABNORMAL) CBC W/DIFF AUTOMATED (12/27/2024 10:50 AM JOB SPOTTER) Only the most recent of2 resultswithin the time period is included. WBC 6.64 4.4 - 11.0 x10'3/uL 12/27/2024 11:16 AM [facility] RBC 3.76(L) 4.50 - 5.10 x10'6/uL 12/27/2024 11:16 AM [facility] HGB 11.1(L) 12.3 - 15.3 G/DL 12/27/2024 11:16 AM [facility] HCT 33.4(L) 35.9 - 44.6 % 12/27/2024 11:16 AM [facility] MCV 88.8 80.0 - 96.0 FL 12/27/2024 11:16 AM [facility] MCH 29.5 25.3 - 30.9 PG 12/27/2024 11:16 AM [facility] MCHC 33.2 31.0 - 34.1 G/DL 12/27/2024 11:16 AM [facility] RDW 13.7 12.4 - 15.1 % 12/27/2024 11:16 AM [facility] PLT 132(L) 151 - 353 x10'3/uL 12/27/2024 11:16 AM [facility] MPV 12.6(H) 9.6 - 12.0 FL 12/27/2024 11:16 AM [facility] RBC MORPHOLOGY NORMAL 12/27/2024 11:16 AM [facility] PLT MORPH. NORMAL 12/27/2024 11:16 AM [facility] WBC MORPHOLOGY NORMAL 12/27/2024 11:16 AM [facility] LYMPHOCYTES % 20.9 15.8 - 45.0 % 12/27/2024 11:16 AM [facility] NEUTROPHILS % 71.3 42.1 - 71.9 % 12/27/2024 11:16 AM [facility] MONOCYTES % 6.5 5.7 - 12.5 % 12/27/2024 11:16 AM [facility] EOSINOPHILS 0.5 0.0 - 5.6 % 12/27/2024 11:16 AM [facility] BASOPHILS 0.3 0.0 - 1.3 % 12/27/2024 11:16 AM [facility] ABS. NEUTROPHILS 4.74 1.40 - 6.00 x10'3/uL 12/27/2024 11:16 AM [facility] IMMATURE GRANS % 0.5 0.0 - 0.5 % 12/27/2024 11:16 AM [facility] ABS. LYMPHOCYTES 1.39 0.80 - 4.70 x10'3/uL 12/27/2024 11:16 AM [facility] 12/27/2024 10:5 0 AM JOB SPOTTER us Aaron Melissa MD LABORATORY Final Result [facility] [address] [place] [address], * (ABNORMAL) HCG QUANTITATIVE SERUM (11/25/2024 8:10 PM JOB SPOTTER) HCG QUANTITATIVE 40,362(H) 0 - 6 MIU/ML 11/25/2024 8:59 PM JOB SPOTTER [facility] Comment: WEEKS OF REFERENCE RANGES NON- FEMALE 0-6 0.2 - 1 5 - 50 1 - 2 50 - 500 2 - 3 100 - 5000 3 - 4 500 - 10,000 4 - 5 1000 - 50,000 5 - 6 10,000 - 100,000 6 - 8 15,000 - 200,000 2 - 3 MONTHS 10,000 - 100,000 11/25/2024 8:10 PM JOB SPOTTER Aaron Melissa MD LABORATORY Final Result [facility] [address] [place] [address], * Cytopath Cerv/Vag Thin Layer (01/24/2023 8:02 AM CDT) THIN PREP PAP [address] [address] Department of Pathology Pathology Report CERVICAL/VAGINAL PAP SMEAR REPORT Name: ANGELA KIRKLAND Age: 2 2000 (Age: 22) Location: [facility] Sex: F Collected Date: 01/24/2023 [facility] #: [id number] Date Received: 01/28/2023 Date Reported: 02/04/2023 Provider: [...] is not effective in detecting cervical adenocarcinoma. [facility] 01/24/2023 8:02 AM CDT 01/28/2023 8:02 AM CDT Comment:CERVICAL/ENDOCERVICA L Fiona Parkinson MD PATHOLOGY/CYTOLO GY ORDERABLES Final Result Performing Organization Address City/State/[facility] [[email or web address]] Co de Phone Number [facility] [address] [place] [address], from Last 3 Months or Most Recently Relevant to Health Maintenance Insurance [place] [address] Advance Directives * Full Code (Latest Code Status on File) Date Activated Date Inactivated Comments 01/26/2022 8:37 AM 01/28/2022 4:20 PM * Full Code Date Activated Date Inactivated Comments 07/07/2021 3:58 PM 07/08/2021 4:29 PM Care Teams Bottom Cager Relationship Specialty Start Date End Date Neda Carranza, MIKE PCP - General Nurse Practitioner Family 11/25/24
--- OUTSIDE RECORDS SUMMARY | 2025-01-27 01:50 | XMS_ITS | Encounter Summary ---
Author Organization [facility] Address [address] [place] [address] Care Team Providers Care Cattle Examiner Name Role Phone Fiona Parkinson MD Primary Care Pr ovider Unavailable Jovanny Suazo MD Primary Care Provider [phone] None, Provider Primary Care Provider Unavaila Neda Escoto Primary Care Provider [phone] Encounter Details Date Type Department Care Team (Late st Contact Info) Description 02/01/2023 RockeTalkhart Message Enc [facility] Medical Group Multispecialty Care - [address] [place] [address] Fiona Parkinson MD Question regarding [...] Sex Assigned at Female 11/25/2024 8:35 PM BAKERY TECHNICIAN Legal Sex Female 7:16 PM CDT Gender [...] Rule Out 12/27/2024 12/27/2024 12/27/2024 1:26 PM BAKERY TECHNICIAN Assessment Noted Time PHQ-9 Depression Total Score: 14 022 1:17 PM BAKERY TECHNICIAN documented as of this encounter Care Teams Cattle Examiner Relationship Specialty Start Date End Date Fiona Parkinson MD PCP - General FAMILY PRACTICE 10/08/22 04/14/23 Jovanny Suazo MD [address] [address] PCP - General INTERNAL MEDICINE 04/15/23 06/27/24 None, Provider, PCP - General UNKNOWN PHYSICIAN SPECIALTY 06/28/24 11/24/24 Neda Carranza, MORTISING MACHINE OPERATOR PCP - General Nurse Practitioner Family 11/25/24 documented as of this encounter
--- OUTSIDE RECORDS SUMMARY | 2025-01-27 01:50 | XMS_ITS | Clinical Summary ---
Author Organization [facility] Address [address] [place] [address] Care Team Providers Care Casino Enforcement Agent Name Role Phone Katie Kellogg MD Unavailable [phone] Nead Carranza NP Primary Care Provider [phone] Kyra Prieto NP Unavailable [phone] Allergies Active Allergy Reactions Criticality Noted Date [...] Information Patient not taking.Reported on 12/03/2024 vit 34-auza-fnxnz-d cristina 27mg iron- 800 mcg-250 mg capsule [...] 10/01/2017 Assessment & Plan (12/03/2024 6:49 PM STUDENT UNION CONSULTANT): Fluoxetine has worked well until about patient's [...] Type Department Care Team Description 01/21/[address] [facility] Medical Group Primary Care at [address] [address] Neda Carranza NP 12/03/2024 2:30 PM STUDENT UNION CONSULTANT Office Visit [facility] Medical [facility] Primary Care at [address] [address] Neda Carranza NP Anxiety (Primary Dx) from [...] on file Legal Sex Female 12:45 AM STUDENT UNION CONSULTANT Gender Identity Not on file Sexual Orientation Not on file Obstetrics History Last Filed Vital Signs Vital Sign Reading Time Taken Comments Blood Pressure 110/60 12/03/2024 2:52 PM STUDENT UNION CONSULTANT Pulse 80 12/03/2024 2:52 PM STUDENT UNION CONSULTANT Temperature 37 C (98.6 F) 12/03/2024 2:52 PM STUDENT UNION CONSULTANT Respiratory Rate 20 10/04/2024 4:47 PM STUDENT UNION CONSULTANT Oxygen Saturation 98% 12/03/2024 2:52 PM STUDENT UNION CONSULTANT Inhaled Oxygen Concentration - - Weight 77.6 kg (171 lb) 12/03/2024 2:52 PM STUDENT UNION CONSULTANT Height 160 cm (5' 3) 12/03/2024 2:52 PM STUDENT UNION CONSULTANT Body Mass Index 30.29 12/03/2024 2:52 PM STUDENT UNION CONSULTANT Plan of Treatment Health Maintenance Due Date [...] HM PAP SMEAR Routine 10/08/2023 9:30 AM STUDENT UNION CONSULTANT N. GONORRHOEAE/C. TRACHOMATIS AMPLIFICATION TEST STAT 04/23/2019 5:16 PM CDT from Last 3 Months or Most Recently Relevant to Health Maintenance Results * HM PAP SMEAR (10/08/2023 9:30 AM STUDENT UNION CONSULTANT) us Historical Provider HEALTH MAINTENANCE Final Result * N. gonorrhoeae/C. trachomatis amplification test Urine (04/23/2019 5:16 PM CDT) Report Final Report: Negative for: Chlamydia trachomatis rRNA Negative for: Neisseria gonorrhoeae rRNA [facility] Comment:Testing performed by : [facility], [address] [place]., [address] Urine 04/23/2019 5:16 PM CDT 04/23/2019 7:20 PM CDT Narrative [facility] - 04/24/2019 1:26 PM CDT Testing performed by the Gen-Probe [employer] APTIMA Combo 2 Assay. This nucleic acid amplification test (NAAT) detects ribosomal RNA (rRNA) from Chlamydia trachomatis and Neisseria gonorrhoeae using target capture,and Client Service Executive-Mediated Amplification (TMA). This test is approved by the [place] Food and Drug Administration for endocervical, vaginal, and male urethral swab specimens, in addition to male and female urine specimens. The performance characteristics for these specimen types have been verified by the [facility].The performance characteristics of this assay for pharyngeal and rectal specimens collected from cervical swab collection devices have been validated and verified by the [facility]. Verification studies support [...] LAB MICROBIOLOGY - GENERAL ORDERABLES Final Result [facility] Department [place] [address] from Last 3 Months or Most Recently Relevant to Health Maintenance Insurance [facility] Advance Directives For more information, please contact: [phone] Documents on File Type Date Recorded Patient Certification Engineer Expl anation ADVANCE DIRECTIVE 04/23/2019 4:57 PM Care Teams Casino Enforcement Agent Relationship Specialty Start Date End Date Neda Carranza NP [address] [place], [place] [id number] PCP - General Family Medicine 06/30/24 Katie Kellogg MD [address] [place] [address] 09/27/20 Kyra Prieto NP [address] [place] [address] Nurse Practitioner Obstetrics and Gynecology 06/30/24
--- OUTSIDE RECORDS SUMMARY | 2025-01-27 01:50 | XMS_ITS | Encounter Summary ---
Author Organization [facility] Address [address] [place] [address] Care Team Providers Care Outbound Telemarketer Name Role Phone Fiona Parkinson MD Primary Care Pr ovider Unavailable Jovanny Suazo MD Primary Care Provider [phone] None, Provider Primary Care Provider Unavaila Neda Escoto Primary Care Provider [phone] Encounter Details Date Type Department Care Team (Late st Contact Info) Description 01/25/2023 MyChart Message Enc [facility] Medical Group Multispecialty Care - [address] [place] [address] Fiona Parkinson MD STD screening [...] Sex Assigned at Female 11/25/2024 8:35 PM ASSISTANT CLINICAL NURSE MANAGER Legal Sex Female 7:16 PM CDT Gender [...] Rule Out 12/27/2024 12/27/2024 12/27/2024 1:26 PM ASSISTANT CLINICAL NURSE MANAGER Assessment Noted Time PHQ-9 Depression Total Score: 14 022 1:17 PM ASSISTANT CLINICAL NURSE MANAGER documented as of this encounter Care Teams Outbound Telemarketer Relationship Specialty Start Date End Date Fiona Parkinson MD PCP - General FAMILY PRACTICE 10/08/22 04/14/23 Jovanny Suazo MD [address] [address] PCP - General INTERNAL MEDICINE 04/15/23 06/27/24 None, ProviderMD PCP - General UNKNOWN PHYSICIAN SPECIALTY 06/28/24 11/24/24 Neda Carranza, STRAW BALER PCP - General Nurse Practitioner Family 11/25/24 documented as of this encounter
--- OUTSIDE RECORDS SUMMARY | 2025-01-27 01:50 | XMS_ITS | Referral Summary ---
Author Organization [facility] Address [address] [place] [address] Care Team Providers Care Director Of Market Research Name Role Phone Katie Kellogg MD Unavailable [phone] Neda Carranza NP Primary Care Provider [phone] Kyra Prieto NP Unavailable [phone] Encounters Date Type Department Care Team Description 01/21/2025 Documentation [facility] Medical Group Primary Care at [address] [address] Neda Carranza NP 12/03/2024 2:30 PM CATHETER FINISHER AND INSPECTOR Office Visit [facility] Medical Group Primary Care at [address] [address] Neda Carranza NP Anxiety (Primary [...] Information Patient not taking.Reported on 12/03/2024 vit 94-kwra-bfhgp-d cristina 27mg iron- 800 mcg-250 mg capsule [...] 10/01/2017 Assessment & Plan (12/03/2024 6:49 PM CATHETER FINISHER AND INSPECTOR): Fluoxetine has worked well until about patient's [...] on file Legal Sex Female 12:45 AM CATHETER FINISHER AND INSPECTOR Gender Identity Not on file Sexual Orientation Not on file Last Filed Vital Signs Vital Sign Reading Time Taken Comments Blood Pressure 110/60 12/03/2024 2:52 PM CATHETER FINISHER AND INSPECTOR Pulse 80 12/03/2024 2:52 PM CATHETER FINISHER AND INSPECTOR Temperature 37 C (98.6 F) 12/03/2024 2:52 PM CATHETER FINISHER AND INSPECTOR Respiratory Rate 20 10/04/2024 4:47 PM CATHETER FINISHER AND INSPECTOR Oxygen Saturation 98% 12/03/2024 2:52 PM CATHETER FINISHER AND INSPECTOR Inhaled Oxygen Concentration - - Weight 77.6 kg (171 lb) 12/03/2024 2:52 PM CATHETER FINISHER AND INSPECTOR Height 160 cm (5' 3) 12/03/2024 2:52 PM CATHETER FINISHER AND INSPECTOR Body Mass Index 30.29 12/03/2024 2:52 PM CATHETER FINISHER AND INSPECTOR Plan of Treatment Not on file Procedures Procedure Name Priority Date/Time Associated Diagnosis Comments HM PAP SMEAR Routine 10/08/2023 9:30 AM CATHETER FINISHER AND INSPECTOR N. GONORRHOEAE/C. TRACHOMATIS AMPLIFICATION TEST STAT 04/23/2019 5:16 PM CDT from Last 3 Months or Most Recently Relevant to Health Maintenance Results * HM PAP SMEAR (10/08/2023 9:30 AM CATHETER FINISHER AND INSPECTOR) Historical Provider HEALTH MAINTENANCE Final Result * N. gonorrhoeae/C. trachomatis amplification test Urine (04/23/2019 5:16 PM CDT) Report Final Report: Negative for: Chlamydia trachomatis rRNA Negative for: Neisseria gonorrhoeae rRNA [facility] Comment:Testing performed by : [facility], [address] [place]., [address] Urine 04/23/2019 5:16 PM CDT 04/23/2019 7:20 PM CDT Narrative [facility] - 04/24/2019 1:26 PM CDT Testing performed by the Gen-Probe [employer] APTIMA Combo 2 Assay. This nucleic acid amplification test (NAAT) detects ribosomal RNA (rRNA) from Chlamydia trachomatis and Neisseria gonorrhoeae using target capture,and Supervisor [employer]-Mediated Amplification (TMA). This test is approved by the [place] Food and Drug Administration for endocervical, vaginal, and male urethral swab specimens, in addition to male and female urine specimens. The performance characteristics for these specimen types have been verified by the [facility].The performance characteristics of this assay for pharyngeal and rectal specimens collected from cervical swab collection devices have been validated and verified by the [facility]. Verification studies support a [...] MICROBIOLOGY - GENERAL ORDERABLES Final Result [facility] [place] [address] from Last 3 Months or Most Recently Relevant to Health Maintenance Insurance [address] [place] [address] [facility] Advance Directives For more information, please contact: [phone] Documents on File Type Date Recorded Patient Arborist Representative Expl anation ADVANCE DIRECTIVE 04/23/2019 4:57 PM Care Teams Director Of Market Research Relationship Specialty Start Date End Date Neda Carranza NP [address] [place] [address] PCP - General Family Medicine 06/30/24 Katie Kellogg MD [address] [place] [address] 09/27/20 Kyra Prieto NP [address] [place] [address] Nurse Practitioner Obstetrics and Gynecology 06/30/24
--- OUTSIDE RECORDS SUMMARY | 2025-01-27 01:50 | XMS_ITS | Encounter Summary ---
Author Organization [facility] Address [address] [place] [id number] Care Team Providers Care Loader Helper Sorting Yard Name Role Phone Filemon Cortney HESTER Primary Care Provider [phone] Fiona Parkinson MD Primary Care Pr ovider Unavailable Jovanny Suazo MD Primary Care Provider [phone] None, Provider Primary Care Provider Unavaila Neda Escoto INSPECTOR PLUG SEAM Primary Care Provider [phone] Encounter Details Date Type Department Care Team (Late st Contact Info) Description 07/11/2021 Hospital Follow-up Call [facility] [place] [address] Fani Moctezuma, RN Social History Tobacco Use Types Packs/Day Years Used Date Smoking Tobacco: Never Smokeless Tobacco: Never Alcohol Use Standard Drinks/Week Comments Not Currently 0 (1 standard drink = 0.6 oz pur e alcohol) Comments No Sex and Gender Information Value Date Recorded Sex Assigned at Female 11/25/2024 8:35 PM OUTBOARD MOTOR MECHANIC Legal Sex Female 7:16 PM CDT Gender [...] Rule Out 12/27/2024 12/27/2024 12/27/2024 1:26 PM OUTBOARD MOTOR MECHANIC documented as of this encounter Care Teams Loader Helper Sorting Yard Relationship Specialty Start Date End Date Cortney Colbert NP [address] [place] [id number] PCP - General NURSE PRACTITIONER 05/06/21 10/07/22 Fiona Parkinson MD [address] [place] [id number] PCP - General FAMILY PRACTICE 10/08/22 04/14/23 Jovanny Suazo MD [address] [place] [address] PCP - General INTERNAL MEDICINE 04/15/23 06/27/24 None, Provider, MD PCP - General UNKNOWN PHYSICIAN SPECIALTY 06/28/24 11/24/24 Neda Carranza, INSPECTOR PLUG SEAM PCP - General Nurse Practitioner Family 11/25/24 documented as of this encounter
--- OUTSIDE RECORDS SUMMARY | 2025-01-27 01:50 | XMS_ITS | Clinical Summary ---
Author Organization [facility] Address [address] [place] [address] Care Team Providers Care Hr Specialist Name Role Phone Katie Kellogg MD Primary Care Provider [phone] Source Comments [facility],non-owned Affiliates and Associated Physician Practices is amultiple site organization consisting of ambulatory clinics and hospital sitesin [place], [place], [place] and [place]. This disclosure is being madepursuant to the Care Everywhere program and may not contain all information available regarding this patient. Last updated 18.[facility] Allergies Active Allergy Reactions Criticality Noted [...] AM CDT Pulse 60 11/19/2018 3:28 PM SUPERVISOR LONG GOODS Temperature 37.1 C (98.8 F) 11/19/2018 3:28 PM SUPERVISOR LONG GOODS Respiratory Rate 16 05/19/2018 9:50 AM CDT [...] age to complete this topic Care Teams Hr Specialist Relationship Specialty Start Date End Date Katie Kellogg MD [address] [place] [address] PCP - General 05/31/18
--- OUTSIDE RECORDS SUMMARY | 2025-01-27 01:50 | XMS_ITS | Clinical Summary ---
Author Organization [facility] Address [address] [place] [address] Phone Care Team Providers Care Smocker Name Role Phone Katie Kellogg MD Primary Care Provider [phone] Allergies Active Allergy Reactions Criticality Noted Date Comments Sulfa (Sulfonamide Antibiotics) Hives High 01/2010 Medications citalopram (CELEXA) 20 mg Oral tablet Take 20 mg by mouth daily at bedtime. Active methylphenidate ER 24hr (CONCERTA) 18 mg Oral tablet Take 36 mg by mouth daily barrel lathe operator outside. Active Melatonin 1 mg Oral Tab Take by mouth. Active LACTOBACILLUS/FO S/PECTIN (PROBIOTIC COMPLEX ORAL) Take by mouth. Active Social History Tobacco Use Types Packs/Day Years Used Date Smoking Tobacco: Never Assessed Comments Unknown Sex and Gender Information Value Date Recorded Sex Assigned at Not on file Legal Sex Female 5:57 AM GIANT TIRE REPAIRER Gender Identity Not on file Sexual Orientation [...] Health Maintenance Due Date Last Done Comments HPV VACCINES (1 - 3-dose series) 2015 DTAP/TDAP/TD VACCINES (1 - Tdap) 2019 HEPATITIS B VACCINES (1 of 3 - 19+ 3-dose series) 12/12 CERVICAL CANCER SCREENING 2021 INFLUENZA VACCINE (#1) 2024 Care Teams Smocker Relationship Specialty Start Date End Date Katie Kellogg MD [address] [place] [address] PCP - General Pediatrics 09/13/10
[2025-01-27 02:00] LABS: Influenza A QL RT-PCR Negative (Negative); Influenza B QL RT-PCR Negative (Negative); SARS-CoV-2 RNA PCR Negative (Negative)
[2025-01-27] MEDS: SODIUM CHLORIDE 0.9% IV 1,000 ML 125 ML IV CONT (02:28)
[2025-01-27] MEDS: KETOROLAC 15 MG/ML VIAL (*BKC) IV PUSH (02:28)
--- NOTE | 2025-01-27 04:53 | PC.NURSE ---
Called Dr. Oh to notify of pt arrival on unit and pt requesting her nighttime doses of fluoxetine and hydroxyzine; orders received.
[2025-01-27] MEDS: hydrOXYzine HCL 10 MG TABLET 20 MG PO ×2 (05:18→21:11)
[2025-01-27] MEDS: FLUoxetine HCL 20 MG CAPSULE PO ×2 (05:33→21:11)
[2025-01-27 07:59] LABS: Basophils Percent Auto 0.2 % (0.2-1.2); Eosinophils Absolute Auto 0.1 K/mm3 (0-0.3); Eosinophils Percent Auto 0.6 % (0-4.4); Hematocrit 34.8 % (37.0-47.0); Hemoglobin 11.4 g/dL (12.0-15.0); Immature Granulocyte Absolute 0.02 K/mm3 (0.00-0.031); Immature Granulocyte Percent A 0.2 % (0-0.5); Lymphocytes Percent Auto 28.6 % (18.3-44.2); Mean Corpuscular HGB Conc 32.8 g/dl (32-36); Mean Corpuscular Hemoglobin 29.5 pg (26-34); Mean Corpuscular Volume 89.9 fl (80-100); Mean Platelet Volume 12.2 fl (7.4-10.4); Monocytes Absolute Auto 0.6 K/mm3 (0.1-0.6); Monocytes Percent Auto 6.6 % (2.6-8.5); Neutrophils Absolute Auto 5.4 K/mm3 (1.3-6.7); Neutrophils Percent Auto 63.8 % (45.5-73.1); Platelet Count Result 152 k/mm3 (150-375); Red Blood Count 3.87 M/mm3 (4.2-5.4); Red Cell Distribution Width 13.3 % (11.5-14.5); White Blood Count 8.4 K/mm3 (4.5-10.0)
--- NOTE | 2025-01-27 10:08 | WPDHPUPDATE1 ---
History and Physical Update Update Date/Time: 01/27/25 10:08 History and Physical has been reviewed, including an updated exam of the patient. There are NO changes in the patient's condition. Risks, benefits, and alternatives have been discussed and questions answered. Patient agrees to proceed with procedure.
--- NOTE | 2025-01-27 10:08 | PM.IMHP ---
H&P: HPI History of Present Illness Date/Time: 01/27/25 10:08 Chief Complaint: Missed miscarriage Narrative: This patient is a 24-year-old female with missed miscarriage. She presented emergency department with pain. We will proceed with suction D&C. She understands risks, benefits, and alternatives. She has completed informed consent process is ready to proceed. The patient understands the details of the procedure. The procedure has been explained in detail. She understands the risks. She understands that injuries may occur that result in hospitalization, more surgery, and severe illness. She understands risk of hemorrhage and infection. She denies any chest pain or shortness of breath. She denies any nausea, vomiting, fever, chills. Review of Systems Review of Systems: All systems reviewed & are unremarkable except as noted in HPI and below Constitutional: Constitutional: Denies chills, Denies fatigue, Denies fever(s) and Denies weakness Eyes: Eyes: Denies blurry vision, Denies change in vision, Denies loss of peripheral vision, Denies loss of vision, Denies other visual disturbances and Denies eye pain ENT: Denies vertigo, Denies dizziness, Denies hearing loss, Denies mouth pain, Denies nasal obstruction, Denies neck mass and Denies neck pain Cardiovascular: Cardiovascular: Denies chest pain, Denies diaphoresis, Denies syncope, Denies leg edema and Denies dyspnea Respiratory: Respiratory: Denies chest congestion, Denies cough, Denies hemoptysis, Denies dyspnea and Denies wheezing Gastrointestinal: Gastrointestinal: Denies abdominal pain, Denies constipation, Denies diarrhea, Denies nausea and Denies vomiting Genitourinary: Genitourinary: Denies hematuria, Denies change in libido, Denies nocturia, Denies genital lesions, Denies flank pain and Denies urinary urgency Musculoskeletal: Musculoskeletal: Denies abnormal gait, Denies back pain, Denies myalgias, Denies arthralgias, Denies joint swelling, Denies muscle weakness and Denies neck pain Integumentary/Breasts: Skin/Breast: Denies swelling, Denies breast pain, Denies breast mass, Denies dry skin, Denies nipple discharge, Denies unusual bruising and Denies jaundice Neurologic: Denies Neuro-related abnormal movements, Denies Abnormal speech present, Denies abnormal gait, Denies behavioral changes, Denies confusion, Denies vertigo, Denies dizziness, Denies syncope, Denies loss of vision, Denies memory loss, Denies convulsions and Denies weakness Psychiatric: Psychiatric: Denies abnormal sleep pattern, Denies behavioral changes, Denies change in libido, Denies confusion, Denies depression, Denies anhedonia and Denies memory loss Endocrine: Endocrine: Reports no additional endocrine complaints, Denies change in libido and Denies fatigue Hematologic/Lymphatic: Hematologic/Lymphatic: Reports no additional hematologic/lymphatic complaints Allergic/Immunologic: Allergic/Immunologic: Reports no additional allergic/immunologic complaints and Denies wheezing PMFSH Past Medical History Medical History No significant family history Surgical History Surgical History No pertinent past surgical history Family History Family History (System 01/27/25 @ 09:36 by Noni Becker) Other Diabetes mellitus Family history of cardiovascular disease Hypertension Social History Social History (System 01/27/25 @ 09:36 by Noni Becker) Smoking status: Never smoker Second hand tobacco smoke exposure: No Alcohol intake: former Alcohol use details: 2 BOTTLES VODKA/WEEK FOR 1-2 MONTHS, FALL 2023. QUIT DRINKING W/ Living arrangements: with family Additional living arrangements comments: BOYFRIEND Occupation/Education: student Gender identity (if verbalized by the patient): Female Spiritual care concerns: No Meds Home Medications and Allergies Home Medications ?Medication ?Instructions ?Recorded ?Confirmed ?Type fluoxetine 20 mg capsule 20 mg PO QPM 01/11/25 01/26/25 History hydroxyzine HCl 10 mg tablet 10 mg PO HS 01/11/25 01/26/25 History fluticasone propionate 50 2 spray intranasal DAILY PRN nasal 01/26/25 01/26/25 History mcg/actuation nasal congestion spray,suspension (Flonase Allergy Relief) loratadine 10 mg tablet 10 mg PO DAILY PRN allergy symptoms 01/26/25 01/26/25 History vit no.133-ferrous 1 tablet PO DAILY 01/26/25 01/26/25 History fumarate 28 mg-folic acid 800 mcg tablet () Allergies Allergy/AdvReac Type Severity Reaction Status Date / Time clindamycin Allergy Mild HIVES Verified 01/27/25 09:36 Sulfa (Sulfonamide Allergy Mild HIVES Verified 01/27/25 09:36 Antibiotics) vancomycin AdvReac Mild Chills Verified 01/27/25 09:36 Vital Signs Vital Signs - 24 hr 01/27/25 00:01 01/27/25 01:46 01/27/25 04:15 Temperature 98.4 F Pulse Rate 88 68 68 Respiratory Rate 14 14 Blood Pressure 120/75 104/69 120/77 Pulse Oximetry 99 100 100 Oxygen Delivery Room Air 01/27/25 05:20 01/27/25 05:24 01/27/25 07:28 Temperature 97.8 F Pulse Rate 72 64 Respiratory Rate Blood Pressure 116/69 106/49 L Pulse Oximetry Oxygen Delivery 01/27/25 07:56 01/27/25 07:58 01/27/25 08:01 Temperature 96.9 F L Pulse Rate Respiratory Rate Blood Pressure Pulse Oximetry 96 99 99 Oxygen Delivery 01/27/25 08:06 01/27/25 08:11 01/27/25 08:16 Temperature Pulse Rate Respiratory Rate Blood Pressure Pulse Oximetry 99 96 100 Oxygen Delivery 01/27/25 08:17 01/27/25 08:21 01/27/25 08:26 Temperature Pulse Rate 61 Respiratory Rate Blood Pressure 97/58 L Pulse Oximetry 99 98 Oxygen Delivery 01/27/25 08:31 01/27/25 08:36 01/27/25 08:41 Temperature Pulse Rate 62 Respiratory Rate Blood Pressure 100/55 L Pulse Oximetry 99 98 98 Oxygen Delivery 01/27/25 08:46 01/27/25 08:51 01/27/25 08:56 Temperature Pulse Rate 59 L Respiratory Rate Blood Pressure 101/51 L Pulse Oximetry 98 99 98 Oxygen Delivery 01/27/25 09:01 01/27/25 09:06 01/27/25 09:11 Temperature Pulse Rate 61 Respiratory Rate Blood Pressure 100/52 L Pulse Oximetry 98 98 98 Oxygen Delivery 01/27/25 09:16 01/27/25 09:20 Temperature Pulse Rate 88 Respiratory Rate Blood Pressure 98/49 L Pulse Oximetry 99 97 Oxygen Delivery Exam Const: General: cooperative, healthy appearing, comfortable and no acute distress Orientation/consciousness: oriented to person, oriented to place and oriented to time HENMT: Head: normal to inspection Ears: external ears normal Face/Nose/Sinus: Normal external nose present and normal facial exam Face and sinus: normal facial exam Eyes: General: appearance normal, both eyes and all related structures Neck: Neck: normal visual inspection, trachea midline and supple Resp: Auscultation: clear to auscultation bilaterally, no crackles, no rales, no rhonchi and no wheezes Cardio: Rate: regular rate Rhythm: regular rhythm Heart sounds: no click, no murmurs and no rubs GI: GI Palp: No abdominal tenderness, No Soft to palpation, No Tenderness to palpation present (GI) and No Palpable mass present Auscultation: normal bowel sounds Skin: General skin exam: normal color and no rashes or lesions noted Neuro: General: oriented to person, oriented to place and oriented to time Extrem: General: normal to inspection, no joint enlargement, no clubbing, cyanosis or edema, no pedal edema and no calf tenderness Psych: Appearance: grossly normal Mental Status: mental status grossly normal Speech and movement: Normal speech and movement present H&P: Results Labs Labs: Short CBC 01/27/25 01/27/25 Range/Units 00:19 07:46 WBC 9.6 8.4 (4.5-10.0) K/mm3 Hgb 12.5 11.4 L (12.0-15.0) g/dL Hct 37.7 34.8 L (37.0-47.0) % Plt Count 182 152 (150-375) k/mm3 BMP 01/27/25 00:19 Sodium 137 Potassium 3.5 Chloride 104 Carbon Dioxide 23 BUN 14 Creatinine 0.52 L Glucose 101 Calcium 9.6 Liver Function 01/27/25 Range/Units 00:19 Total Bilirubin 0.3 (0.2-1.3) mg/dL AST 21 (14-36) U/L ALT 28 (6-35) U/L Alkaline Phosphatase 49 (38-126) U/L Albumin 4.0 (3.5-5.1) g/dL Assessment and Plan Assessment and plan (1) Missed : Code(s): O02.1 - Missed Status: Acute Plan This patient is a 24-year-old female with missed miscarriage. She presented emergency department with pain. We will proceed with suction D&C. She understands risks, benefits, and alternatives. She has completed informed consent process is ready to proceed.
--- NOTE | 2025-01-27 10:16 | WPDANESEPPF ---
Anes - Initial Pre Proc Eval Procedure: Operation Date: 01/27/25 11:00 Proposed Procedures p Suction Dilation and Curettage - Ricky Oh MD Date/Time: 01/27/25 10:16 Surgeon: Ricky Oh MD Pre Op Diagnosis: missed , intractable pain Patient Data Age: 24 Gender: F Height: 1.6 m Weight: 82 kg Last Vital Signs Temp 36.1 C L 01/27/25 07:58 Pulse 88 01/27/25 09:16 Resp 14 01/27/25 04:15 BP 98/49 L 01/27/25 09:16 Pulse Ox 97 01/27/25 09:20 O2 Del Method Room Air 01/27/25 00:01 Allergies Allergy/AdvReac Type Severity Reaction Status Date / Time clindamycin Allergy Mild HIVES Verified 01/27/25 09:36 Sulfa (Sulfonamide Allergy Mild HIVES Verified 01/27/25 09:36 Antibiotics) vancomycin AdvReac Mild Chills Verified 01/27/25 09:36 Home Medications ?Medication ?Instructions ?Recorded ?Confirmed ?Type fluoxetine 20 mg capsule 20 mg PO QPM 01/11/25 01/26/25 History hydroxyzine HCl 10 mg tablet 10 mg PO HS 01/11/25 01/26/25 History fluticasone propionate 50 2 spray intranasal DAILY PRN nasal 01/26/25 01/26/25 History mcg/actuation nasal congestion spray,suspension (Flonase Allergy Relief) loratadine 10 mg tablet 10 mg PO DAILY PRN allergy symptoms 01/26/25 01/26/25 History vit no.133-ferrous 1 tablet PO DAILY 01/26/25 01/26/25 History fumarate 28 mg-folic acid 800 mcg tablet () Laboratory Tests 01/27/25 01/27/25 01/27/25 00:19 00:19 00:19 WBC 9.6 K/mm3 (4.5-10.0) RBC 4.23 M/mm3 (4.2-5.4) Hgb 12.5 g/dL (12.0-15.0) Hct 37.7 % (37.0-47.0) MCV 89.1 fl (80-100) MCH 29.6 pg (26-34) MCHC 33.2 g/dl (32-36) RDW 13.2 % (11.5-14.5) Plt Count 182 k/mm3 (150-375) MPV 12.4 H fl (7.4-10.4) Immature Gran % (Auto) 0.4 % (0-0.5) Neut % (Auto) 74.4 H % (45.5-73.1) Lymph % (Auto) 19.6 % (18.3-44.2) [place] % (Auto) 5.0 % (2.6-8.5) Eos % (Auto) 0.5 % (0-4.4) Baso % (Auto) 0.1 L % (0.2-1.2) Lymph # (Auto) 1.89 K/mm3 (0.9-3.2) [place] # (Auto) 0.5 K/mm3 (0.1-0.6) Eos # (Auto) 0.1 K/mm3 (0-0.3) Baso # (Auto) 0.0 K/mm3 (0.0-0.1) Abs Immat Gran (auto) 0.04 H K/mm3 (0.00-0.031) Absolute Neuts (auto) 7.2 H K/mm3 (1.3-6.7) Absolute Nucleated RBC 0.000 K/mm3 (0.0-0.012) Nucleated RBC % 0.0 % (0.0-0.2) PT 13.1 Seconds (11.1-14.7) INR 1.0 APTT 28.2 Seconds (22.3-36.8) Sodium 137 mmol/L (137-145) Potassium 3.5 mmol/L (3.4-5.0) Chloride 104 mmol/L (98-107) Carbon Dioxide 23 mmol/L (22-30) Anion Gap 10 mmol/L (4-12) BUN 14 mg/dL (7-17) Creatinine 0.52 L mg/dL (0.7-1.0) Estim Creat Clear Calc Not Reportable Estimated GFR > 60 (59 - ) Glucose 101 mg/dL (65-110) Calcium 9.6 mg/dL (8.4-10.2) Total Bilirubin 0.3 mg/dL (0.2-1.3) AST 21 U/L (14-36) ALT 28 U/L (6-35) Alkaline Phosphatase 49 U/L (38-126) Total Protein 7.0 g/dL (6.3-8.2) Albumin 4.0 g/dL (3.5-5.1) Beta HCG, Quant 565.27 mIU/ML Influenza A (RT-PCR) Influenza B (RT-PCR) SARS-CoV-2 RNA (RT-PCR) Blood Type Cancelled A Positive Antibody Screen Cancelled Negative Screen Not Reportable Baby's Blood Type Not Reportable Baby's TAMERA Not Reportable Doses of RhIg Required 0 01/27/25 01/27/25 01:19 07:46 WBC 8.4 K/mm3 (4.5-10.0) RBC 3.87 L M/mm3 (4.2-5.4) Hgb 11.4 L g/dL (12.0-15.0) Hct 34.8 L % (37.0-47.0) MCV 89.9 fl (80-100) MCH 29.5 pg (26-34) MCHC 32.8 g/dl (32-36) RDW 13.3 % (11.5-14.5) Plt Count 152 k/mm3 (150-375) MPV 12.2 H fl (7.4-10.4) Immature Gran % (Auto) 0.2 % (0-0.5) Neut % (Auto) 63.8 % (45.5-73.1) Lymph % (Auto) 28.6 % (18.3-44.2) [place] % (Auto) 6.6 % (2.6-8.5) Eos % (Auto) 0.6 % (0-4.4) Baso % (Auto) 0.2 % (0.2-1.2) Lymph # (Auto) 2.40 K/mm3 (0.9-3.2) [place] # (Auto) 0.6 K/mm3 (0.1-0.6) Eos # (Auto) 0.1 K/mm3 (0-0.3) Baso # (Auto) 0.0 K/mm3 (0.0-0.1) Abs Immat Gran (auto) 0.02 K/mm3 (0.00-0.031) Absolute Neuts (auto) 5.4 K/mm3 (1.3-6.7) Absolute Nucleated RBC 0.000 K/mm3 (0.0-0.012) Nucleated RBC % 0.0 % (0.0-0.2) PT INR APTT Sodium Potassium Chloride Carbon Dioxide Anion Gap BUN Creatinine Estim Creat Clear Calc Estimated GFR Glucose Calcium Total Bilirubin AST ALT Alkaline Phosphatase Total Protein Albumin Beta HCG, Quant Influenza A (RT-PCR) Negative (Negative) Influenza B (RT-PCR) Negative (Negative) SARS-CoV-2 RNA (RT-PCR) Negative (Negative) Blood Type Antibody Screen Screen Baby's Blood Type Baby's TAMERA Doses of RhIg Required Patient hx anesthesia problems: none Family hx anesthesia problems: none Results Review: All pre-operative results and documents have been reviewed as part of the pre-operative evaluation. [facility] Past Medical History Medical History No significant family history No active medical problems Surgical History Surgical History No pertinent past surgical history Family History Family History Other Diabetes mellitus Family history of cardiovascular disease Hypertension Social History Social History (System 01/27/25 @ 09:36 by Noni Becker) Smoking status: Never smoker Second hand tobacco smoke exposure: No Alcohol intake: former Alcohol use details: 2 BOTTLES VODKA/WEEK FOR 1-2 MONTHS, FALL 2023. QUIT DRINKING W/ Living arrangements: with family Additional living arrangements comments: BOYFRIEND Occupation/Education: student Gender identity (if verbalized by the patient): Female Spiritual care concerns: No Anes - Eval Final PreProcedure Day of Procedure 01/27/25 10:16 Patient weight: obese Heart: regular rate and rhythm Lungs: clear to auscultation Airway: Mallampati scale class II Neurological: alert and oriented Last oral intake: >/= 8 hours ASA classification: II Emergent: no Anesthetic plan: proceed Anesthesia type and monitoring: general GIVS and standard monitoring Results Review: All pre-operative results and documents have been reviewed as part of the pre-operative evaluation. Informed Consent: The patient's anesthetic plan and its attendant risks and benefits were discussed with the patient/family/POA. Questions were solicited and answers provided to the satisfaction of the patient/family/POA.
[2025-01-27] MEDS: LACTATED RINGERS 1,000 ML 30 ML IV CONT (10:19)
--- NOTE | 2025-01-27 11:06 | P.OP_ITS ---
Procedure Note - Detailed Date of Procedure 01/27/25 Pre-op Diagnosis missed , intractable pain Post-op Diagnosis Same Procedure Performed Dilatation and evacuation Surgeon Ricky Oh MD Anesthesia MAC Indications missed Findings normal-appearing vulva vagina and cervix to. Moderate amount of products conception within the uterus. 13 cm uterus Description of Procedure the patient was taken the operating room. She was prepped and draped in dorsal lithotomy position after induction of mac anesthesia. A speculum was placed in the vagina. Cervix grasped with tenaculum. The cervix was dilated to about 1.3 cm Using Lundberg dilators. A 12 [place] Islander curved curette was used to perform suction D&C. Ring forceps were used to remove well-developed parts. The curette was introduced and vacuum was applied. The curette was removed over all surfaces of the intrauterine cavity multiple times. This was done until all the surfaces were clear and had the familiar grainy texture they can be felt through the instrument. A sharp curette was then used to curettage all the surfaces. The suction cup was then reapplied 1 more time to remove any debris. The instruments were removed. The speculum and tenaculum were removed. The patient tolerated the procedure well. She was taken recovery room stable condition. Estimated Blood Loss 50 Drains No Packing No Pathology Yes Complications No immediate complications Condition Stable Disposition PACU
[2025-01-27] MEDS: fentaNYL CITRATE INJ (*CRX) 100 MCG/2 ML VIAL 25 MCG IV PUSH ×4 (11:10→11:55)
[2025-01-27] MEDS: diazePAM INJ (*CRX) 10 MG/2 ML SYRINGE 2.5 MG IV PUSH ×2 (11:25→12:03)
--- NOTE | 2025-01-27 13:20 | PC.NURSE ---
Pt's mother came out of room and stated that the pt passed out while going to the bathroom and was on the floor. Mother states that the pt was going to pass out and she lowered her to the floor. Pt did not fall. On entering the room, pt was awake but out of it. Pt moved to wheelchair and put into bed. Pt became more awake and responding to questions.
--- NOTE | 2025-01-27 13:25 | S_PTH ---
PATIENT: Angela Peterson LOC: [facility] U#:[id number] AGE/SX: 24/F ROOM: 115 RE01/27/[address]: Ricky Oh MD : 2000 BED: 00 DIS: 01/28/2025 SPEC #: [id number] RECD: 01/27/25 13:27 STATUS: MARY REQ #: [id number] LIZZY: 01/27/25 13:[address]: Ricky Oh DEPT: [facility] Surgical RECD BY: Toña Estrada ENTERED: 01/27/25 13:27 SP TYPE: Surgical OTHR DR: Neda Carranza, PROFILE SHAPER OPERATOR Tissues: A - Uterine Contents Procedures: Hematoxylin and Eosin Stain Gross and Microscopic Level 4
--- NOTE | 2025-01-27 13:59 | SUR.PREOP ---
Disposition document was signed and sent with patients specimen. Patient elected to have remains sent to [facility] in [facility].
--- NOTE | 2025-01-27 14:50 | PC.NURSE ---
Called Dr. Oh with pt status. Pt complaining of pain. Pt slurring speech and can't stay awake. Informed of pt passing out in bathroom. Pt very emotional and tearful. Orders received for Motrin and Tylenol.
[2025-01-27] MEDS: IBUPROFEN 600 MG TABLET PO (15:12)
[2025-01-27] MEDS: ACETAMINOPHEN 500 MG TABLET 1000 MG PO (15:12)
--- NOTE | 2025-01-27 19:24 | PC.NURSE ---
Spoke with Dr Oh, updated on patient complaint of continued pain after receiving motrin and tylenol. Orders received for patient to have [place]sopple 5/325 2 tabs once.
[2025-01-27] MEDS: HYDROcodone/acetaminophen (*CRX) 5-325 MG TABLET 2 TAB PO (21:10)
[2025-01-28 06:56] VITALS: PULSE 79; PULSE 80; O2SAT 100; O2SAT 98
[2025-01-28 06:57] VITALS: BP 103/66; PULSE 73; RESP 18; TEMP 36.7
[2025-01-28] MEDS: ACETAMINOPHEN 500 MG TABLET 1000 MG PO (06:59)
[2025-01-28] MEDS: IBUPROFEN 600 MG TABLET PO (06:59)
--- NOTE | 2025-01-28 08:01 | PM.OBPNVD ---
OB - PN: Subj Subjective Date/time seen: 01/28/25 08:01 OB - PN: Obj Data Labs 01/27/25 07:46 01/27/25 00:19 Labs: Laboratory Results - last 24 hr 01/27/25 07:46 WBC 8.4 RBC 3.87 L Hgb 11.4 L Hct 34.8 L MCV 89.9 MCH 29.5 MCHC 32.8 RDW 13.3 Plt Count 152 MPV 12.2 H Immature Gran % (Auto) 0.2 Neut % (Auto) 63.8 Lymph % (Auto) 28.6 [place] % (Auto) 6.6 Eos % (Auto) 0.6 Baso % (Auto) 0.2 Lymph # (Auto) 2.40 [place] # (Auto) 0.6 Eos # (Auto) 0.1 Baso # (Auto) 0.0 Abs Immat Gran (auto) 0.02 Absolute Neuts (auto) 5.4 Absolute Nucleated RBC 0.000 Nucleated RBC % 0.0 OB - PN A/P Assessment and Plan (1) Missed : Code(s): O02.1 - Missed Status: Acute Plan 24-year-old female with missed miscarriage who stayed an additional night for syncope. Hypotension. She is stable at this time. No dizziness or hypotension. Minimal bleeding. Mood concerns. Has good support. Discharge today. Short-term follow-up. Time Spent With Patient Time: Total time spent is greater than 50% in coordination of care (as documented) at patient's floor/unit and/or counseling patient:
--- NOTE | 2025-02-17 21:37 | PM.DS ---
DS: Admitting Diagnosis Discharge Date 01/28/25 Admitting Diagnosis missed miscarriage DS: Discharge Diagnosis Discharge Diagnosis (1) Missed : Code(s): O02.1 - Missed Status: Acute DS: Summary Hospital Course Hospital Course: 24-year-old with missed miscarriage. Had suction D&C. Had dizziness/ syncope after the procedure. She was admitted for observation overnight. She was discharged home the next day. She was stable throughout. Time Spent with Patient Time attestation: Total time spent providing and/or coordinating discharge services: DS: Data Data Completed and Pending Completed studies during hospitalization: Pending at discharge 01/27/25 13:25 Surgical [PTH] Routine Discharge Plan Discharge Consulting providers: Tristen Jeffrey; Mc Lovett Discharging Clinician: Ricky Oh Patient Disposition: Home Activity: may shower Diet: as tolerated Discharge Instructions: Follow-Up:? ? Call your Provider's office for an appointment to be seen in: ?1 week ? * [facility] offers a and Loss Support group which meets the Saturday of every month from 6:30pm-8:30pm.? * If consent was given, you will be contacted by the Share Coordinator to check in on you.? * If you have questions regarding the grieving process or would like more resources or support, you can call the?Share Coordinator at [phone] or via email at [email or web address] *The staff at [facility] wishes to extend our deepest sympathy during this very difficult time.? ? ? EPISIOTOMY/PERINEAL CARE:? ? * Until bleeding stops, use your john bottle after urinating? * Change your pad frequently throughout the day? * You may take sitz baths several times a day (fill your bathtub with warm water and soak for 20 minutes.)? Do NOT bathe in the water? * No tub baths until seen by your physician - You may shower? ? BLEEDING:? * Each individual will experience vaginal bleeding, but it will vary with each situation and individual woman.? * Vaginal bleeding will go thru cycles-from bright red, to pinkish to a white, creamy discharge.? This is considered normal.? You may also experience a brownish discharge which is also normal.? ? DIET AND NUTRITION:? * Eat at least 3 regular, well-balanced meals per day: include all 4 food groups daily.?? * You may prefer 6 small meals.? * Drink 6-8 glasses of water or non-caffeinated beverages per day.? * Loss of appetite is common with loss.? We encourage you to try to eat; this will help with both your physical and emotional health.? ? ACTIVITY:? ? * Rest as much as possible during the day.? * Do not exercise or lift anything heavier than 10 pounds (such as laundry or other children.)? * Avoid stairs or driving as much as possible, especially if you are taking pain medication.? * Do not put anything into the vagina.? No douching, tampons, or sexual activity until seen and released by your physician.? * Listen to your body, and do not do what is uncomfortable or painful.? ? ? EMOTIONAL HEALTH:? ? * This is a very difficult and sad time for you and your family, friends, and other children.? It may be helpful to refer to the booklets on loss that you may have received.? * It is okay to be sad and to cry.? Denial, anger, and guilt are also normal stages that you and your family may go thru during this time.? Each person reaches these stages at their own pace.? * Keep the lines of communication open between family and friends and ask for help if needed.? ? ? NOTIFY PHYSICIAN IF YOU HAVE ANY QUESTIONS OR IF ANY OF THE FOLLOWING SYMPTOMS OCCUR:? ? * If you feel any desire to harm yourself or others, contact your physician immediately or go to the nearest emergency room.? *If your episiotomy or incision becomes red, swollen, or more painful than what you have experienced in the hospital.? * If your vaginal bleeding becomes foul smelling.? * If your vaginal bleeding becomes heavier than a period or if your bleeding changes from pink to bright red.? However, you may pass an occasional walnut-sized clot once or twice for the first week .? * If you experience a sharp, shooting pain in you calves.? * If you discover a hard, reddened area on your breast or if you experience flu-like symptoms.? * If you develop a temperature of 100.4 or greater.? * If you are unable to eat or sleep and take care of activities that sustain life.? Patient Instructions: Dilation and Curettage (DC) Patient Language: Yakut Stand Alone Forms: General Discharge Information Follow-up/Referrals: Ricky Oh MD [Physician] - Discharge Medications: Continued hydroxyzine HCl 10 mg tablet 10 mg PO HS fluoxetine 20 mg capsule 20 mg PO QPM fluticasone propionate [Flonase Allergy Relief] 50 mcg/actuation spray,suspension 2 spray intranasal DAILY PRN (Reason: nasal congestion) Rx Instructions: administer into each nostril loratadine 10 mg tablet 10 mg PO DAILY PRN (Reason: allergy symptoms) 28-800 mg-mcg tablet 1 tablet PO DAILY Date of admission: 01/27/25 23:00 Primary Care Provider: Dillon,Neda Ramirez Admitting Provider: Ricky Oh Attending physician on admission: Ricky Oh Condition: Stable
== END 2025-01-28 10:41 | disposition home or self-care (01) | DRG 543 ==
LOC: ANHED 01-27 02:12 → ANHLDR 01-27 03:01 → ANHOBPP 01-27 04:10
PROVIDERS: Emergency Medicine; Admitting Provider Obstetrics & Gynecology; Emergency Provider Physician Assistant; PCP Nurse Practitioner Family; Visit Provider Obstetrics & Gynecology
PROC: 10D17ZZ Extraction of Products of Conception, Retained, Via Natural or Artificial Opening (ICD-10-PCS; principal; 2025-01-27 11:00)
DX: O02.1 Missed abortion (principal); Z3A.16 16 weeks gestation of pregnancy; I95.9 Hypotension, unspecified; Z20.822 Contact with and (suspected) exposure to COVID-19
CPT/HCPCS: 36415; 80053; 84702; 85025; 85461; 85610; 85730; 86850; 86900; 86901; 87636; 88305; 96374; 96375; 96376; 99285; A9270; J1885; J2250; J2270; J2405; J2704; J3010; J3360; J7030; J7120